=== PATIENT | male | born 1935 | race Caucasian/White ===

== ENCOUNTER 2016-10-10 09:28 | Inpatient (IN) | payer MEDICARE, BC ==
[~2016-10-10] VITALS: Ht 177.8 cm; Wt 94.8 kg
[2016-10-10 10:40] VITALS: BP 118/87
[2016-10-10 11:17] VITALS: BP 118/87
[2016-10-10] MEDS ORDERED: CARV25TA2 PO (11:25)
[2016-10-10] MEDS ORDERED: DABI150C PO (11:25)
[2016-10-10] MEDS ORDERED: SERT50TA PO (11:25)
[2016-10-10] MEDS ORDERED: LOSA100T6 PO (11:25)
[2016-10-10] MEDS ORDERED: POTA20TA4 PO (11:25)
[2016-10-10] MEDS ORDERED: TAMS0.4C2 PO (11:25)
[2016-10-10] MEDS ORDERED: CHOL500016 PO (11:25)
[2016-10-10] MEDS ORDERED: ASPI81TA2 PO (11:25)
[2016-10-10] MEDS ORDERED: SPIR25TA3 PO (11:25)
[2016-10-10 11:46] LABS: BASO % 0 % (0-3); EOS % 1 % (0-3); HEMATOCRIT 35.2 % (39.0-53.0); HEMOGLOBIN 11.8 g/dL (13.0-17.5); LYMPH # 0.5 x10^3/uL (1.0-4.8); LYMPH % 9 % (24-48); MEAN CORPUSCULAR HEMOGLOBIN 30 pg (25-35); MEAN CORPUSCULAR HGB CONC 33 g/dL (31-37); MEAN CORPUSCULAR VOLUME 91 fL (79-100); MONO % 8 % (0-9); NEUT % 82 % (31-73); PLATELET COUNT 154 x10^3/uL (140-400); RED BLOOD COUNT 3.89 x10^6/uL (4.30-5.70); RED CELL DISTRIBUTION WIDTH 14.6 % (11.5-14.5); WHITE BLOOD COUNT 5.4 x10^3/uL (4.0-11.0)
[2016-10-10] MEDS ORDERED: EZET1TAB19 PO (12:00)
[2016-10-10] MEDS ORDERED: MULT-246 PO (12:00)
[2016-10-10] MEDS ORDERED: CALC600T4 PO (12:00)
[2016-10-10] MEDS ORDERED: POTA20TA82 PO (12:00)
[2016-10-10] MEDS ORDERED: FENO145T2 PO (12:00)
[2016-10-10 12:17] LABS: ALBUMIN 2.9 g/dL (3.4-5.0); ALBUMIN/GLOBULIN RATIO 0.8 (1.0-1.7); CREATININE 5.5 mg/dL (0.7-1.3); POTASSIUM 5.9 mmol/L (3.5-5.1); TOTAL BILIRUBIN 0.7 mg/dL (0.2-1.0); TOTAL PROTEIN 6.5 g/dL (6.4-8.2)
[2016-10-10 12:29] LABS: CALCIUM 14.4 mg/dL (8.5-10.1)
[2016-10-10] MEDS: IV NORMAL SALINE 1000ML BAG 1,000 ML IV SCH ×2 (12:29→21:57)
--- NOTE | 2016-10-10 13:22 | PDOC2 ---
DATE OF CONSULT Date of Consult 10/10/2016 REASON FOR CONSULT Reason for Consult YURI, ^K, ^ mary jane REFERRING PHYSICIAN Referring Provider Dr Chung CHIEF COMPLAINT Chief Complaint ABN Labs SOURCE Source Pt HPI HPI as dictated CURRENT MEDICATIONS Current Meds Current Medications Medications (Trade) Dose Ordered Sig/Selena Route PRN Reason Start Time Stop Time Status Last Admin Dose Admin Sodium Chloride (Iv Sodium Chloride 0.9% 1000ml Bag) 1,000 ml @ 100 mls/hr Q10H IV 10/10/16 11:00 10/10/16 12:29 Home Meds reviewed as documented ALLERGIES Allergies: Coded Allergies: No Known Drug Allergies (Unverified , 10/10/16) ROS ROS GEN: no Fevers no Chills + Weakness, DZness, Orthostasis EYES: no new Visual Complaints ENT: no EN Drainage no Hearing deficiets CVS: no Orthopnea no CP RESP: no SOB no ZEPEDA GI: no Nausea no Vomiting + Constiaption : no Dysuria no Urgency + Polyuria HEME: no easy bruising no Palp Ly Nodes NEURO no Focal Weakness no Sz PSYCH: no Suicidal Ideation no Depression SKIN: no Rashes + H/o Melanoma ENDO: no Polyuria or Polydipsia no Hot/Cold Intolerance MU SK: + Back Pain and other Arthralgia + NSAID use no Myalgia VITAL SIGNS Vital Signs VS - Last 72 Hours, by Label Date Time Temp Pulse Resp B/P Pulse Ox O2 Delivery O2 Flow Rate FiO2 10/10/16 11:17 98.1 86 20 118/87 97 Room Air 98.1 10/10/16 10:40 98.1 86 20 118/87 97 Room Air 98.1 PHYSICAL EXAM Physical Exam General Appearance: Awake Alert Oriented x 3 In no Distress Eyes: VIsion Unchanged Conjunctiva Normal EN: No EN Drainage Mucous Memb. moist Neck: no JVD no JVP Supple no Thyromegaly CVS: S1 S2 soft Murmur No Gallop No Rub no Edema Resp: no Rales no Rhonchi no Acc. Muscle use GI: BS +ve NO Bruit Non Tender Non Distended : no CVA tenderness; no Suprapubic Tenderness SKIN: no Rashes Breast Exam deferred Mu.Sk: Adequate ROM no Muscle Atrophy Heme: Unable to palpate Obvious LAD no palp Splenomegaly NEURO: Good Strength and Tone Cranial Nerves II - XII grossly intact Psych: not Depressed no Active hallucination ASSESSMENT/PLAN Assessment/Plan ARF: suspect VMN from NSAIDs, ^ Mary Jane, dehydration etc. Current FLuid and E-lyte status does not necessitate emergent need for Dialysis. Will re-evaluate for Dialysis in am ^K - Kayexalate, suspect due to renal failure ^Mary Jane - IVF for now. Miacalcin x 3; was on Mary Jane + Vit D; ? Co-relation with Bone/ spine pain. Back Pain (predates) and fall - spine xrays HypoAlbuminemia - Evall for PEPs in setting of YURI, ^ Mary Jane Dehydration - IVF as ordered Anemia: check Iron; No Epogen for now; Transfuse as needed. HTN: Current BP meds reviewed. See orders for changes. Discussed Plan of Care and prognosis etc. at length with family. LABS Labs: Laboratory Tests Test 10/10/16 11:37 White Blood Count 5.4x10^3/uL (4.0-11.0) Red Blood Count 3.89x10^6/uL (4.30-5.70) Hemoglobin 11.8g/dL (13.0-17.5) Hematocrit 35.2% (39.0-53.0) Mean Corpuscular Volume 91fL (79-100) Mean Corpuscular Hemoglobin 30pg (25-35) Mean Corpuscular Hemoglobin Concent 33g/dL (31-37) Red Cell Distribution Width 14.6% (11.5-14.5) Platelet Count 154x10^3/uL (140-400) Neutrophils (%) (Auto) 82% (31-73) Lymphocytes (%) (Auto) 9% (24-48) Monocytes (%) (Auto) 8% (0-9) Eosinophils (%) (Auto) 1% (0-3) Basophils (%) (Auto) 0% (0-3) Neutrophils # (Auto) 4.4x10^3uL (1.8-7.7) Lymphocytes # (Auto) 0.5x10^3/uL (1.0-4.8) Monocytes # (Auto) 0.5x10^3/uL (0.0-1.1) Eosinophils # (Auto) 0.0x10^3/uL (0.0-0.7) Basophils # (Auto) 0.0x10^3/uL (0.0-0.2) Sodium Level 136mmol/L (136-145) Chloride Level 102mmol/L (98-107) Carbon Dioxide Level 27mmol/L (21-32) Anion Gap 7 (6-14) Blood Urea Nitrogen 56mg/dL (8-26) Estimated GFR (Cockcroft-Gault) 10.0 BUN/Creatinine Ratio 10 (6-20) Glucose Level 91mg/dL (70-99) Calcium Level 14.4mg/dL (8.5-10.1) Total Bilirubin 0.7mg/dL (0.2-1.0) Aspartate Amino Transf (AST/SGOT) 35U/L (15-37) Alkaline Phosphatase 78U/L (46-116) Total Protein 6.5g/dL (6.4-8.2) Albumin 2.9g/dL (3.4-5.0) Albumin/Globulin Ratio 0.8 (1.0-1.7) DIAZ GUNN MD Oct 10, 2016 13:22
[2016-10-10] MEDS ORDERED: MAGNESIUM SULFATE 2GM 50 ML IV PRN (13:30)
[2016-10-10] MEDS ORDERED: SODIUM POLYSTYRENE SULFONATE 15 GM/60 ML ORAL.SUSP. PO ONE (13:30)
[2016-10-10] MEDS ORDERED: EZETIMIBE 10 MG TABLET PO SCH (14:00)
[2016-10-10] MEDS: ASPIRIN 81 MG TAB.CHEW PO SCH (14:00)
[2016-10-10] MEDS: CHOLECALCIFEROL (VITAMIN D3) 5,000 UNIT CAPSULE PO SCH (14:00)
[2016-10-10] MEDS ORDERED: SPIRONOLACTONE 25 MG TABLET PO SCH (14:00)
[2016-10-10] MEDS: MULTIVITAMIN with MINERAL TABLET. PO SCH (14:00)
[2016-10-10 14:08] VITALS: BP 142/91
[2016-10-10 14:44] LABS: % SAT IRON 20 % (15-34); IRON,SERUM 57 ug/dL (65-175)
[2016-10-10] MEDS ORDERED: ANTI-COAG MONITOR BY PHARMACY. MC PRN (14:45)
[2016-10-10] MEDS ORDERED: ONDANSETRON PF 4 MG/2 ML VIAL. IV PRN (15:30)
--- NOTE | 2016-10-10 15:55 | RAD ---
Exam performed: Renal sonogram. Indication: Acute renal failure, chronic renal disease Date of Service: 10/10/16 . Comparison: None available Technique: Real-time grayscale imaging of the kidneys is performed and images are obtained. Findings: Both kidneys are normal in size and echogenicity. The right kidney measures 12.3 x 6.0 x 6.2 cm whereas the left kidney measures 12.8 x 5.1 x 5.2 cm. There is mild right and moderate left hydronephrosis. There is a 1.7 x 1.5 x 2.0 cm cyst in the left kidney. The urinary bladder is decompressed. Impression: 1. Left greater than right hydronephrosis with small left renal cyst
--- NOTE | 2016-10-10 16:03 | RAD ---
Lumbar spine, 3 views, 10/10/2016: History: Fall, back pain No previous lumbar radiographs are available at this time for comparison purposes. There is a moderate vertebral compression fracture at L2. There is retropulsion of the posterior margin of that vertebral body into the anterior aspect of the spinal canal. There is mild loss of height of the L3 vertebral body. The other lumbar vertebral heights are well-maintained. There are moderate scattered marginal spurs. There are moderate degenerative changes involving the facet joints in the lower lumbar spine. There is an infrarenal abdominal aortic aneurysm measuring at least 4 cm in diameter. Its downey are calcified. IMPRESSION: 1. L2 and L3 vertebral compression fractures of indeterminate ages. 2. Probable associated spinal stenosis at L2-3 due to retropulsion at the L2 fracture site. 3. Moderate multilevel degenerative change. 4. Distal abdominal aortic aneurysm.
[2016-10-10] MEDS ORDERED: NON FORMULARY ITEM (Potassium Chloride 20 MEQ) PO SCH (17:00)
[2016-10-10] MEDS ORDERED: POTASSIUM CHLORIDE 20 MEQ TABLET.ER. PO SCH (17:00)
[2016-10-10] MEDS: FENOFIBRATE,MICRONIZED 134 MG CAPSULE PO SCH (17:11)
[2016-10-10] MEDS: CARVEDILOL 12.5 MG TABLET PO SCH (17:11)
[2016-10-10 19:32] VITALS: BP 146/93
[2016-10-10] MEDS ORDERED: DABIGATRAN ETEXILATE 150 MG CAPSULE. PO SCH (21:00)
[2016-10-10] MEDS: SERTRALINE 50 MG TABLET. PO SCH (21:48)
[2016-10-10] MEDS: EZETIMIBE 10 MG TABLET PO SCH (21:48)
[2016-10-10] MEDS: TAMSULOSIN 0.4 MG CAP.ER.24H. PO SCH (21:48)
[2016-10-10] MEDS: SIMVASTATIN 40 MG TABLET. PO SCH (21:48)
[2016-10-10] MEDS: LOSARTAN POTASSIUM 50 MG TABLET. PO SCH (21:48)
[2016-10-10] MEDS: CALCITONIN,SALMON 400 UNIT/2 ML VIAL. SQ SCH (21:50)
--- NOTE | 2016-10-10 22:38 | HP ---
ADMIT DATE: 10/10/2016 CHIEF COMPLAINT AND HISTORY OF PRESENT ILLNESS: This 81-year-old white male who is well known to me from followup in the office. The patient was seen in the office the day prior to admission. He was sent by dermatology who follows him after removal of melanoma several years ago because of increased LDH. A full lab was done. He was found to have acute renal failure with a BUN of 44 and creatinine of 3.47 on the 30. ____ lab done ____ where his creatinine was 1.4. He was also found to be hyperkalemic. He was profoundly hypercalcemic with a calcium of 13.5. CBC was fairly unremarkable. Repeat LDH was 393 with upper limits normal of 225. He was admitted at this point in time for the hypercalcemia, hyperkalemia, acute renal failure to work this up further. PAST MEDICAL HISTORY: Remarkable for the melanoma. He has a history of mild chronic kidney disease with a creatinine of 1.4. He has a history of a 3.5 cm abdominal aortic aneurysm. He has atrial fib, for which he takes Xarelto. He has history of BPH, atherosclerotic heart disease, some depression. MEDICATIONS: Brought with the patient, listed on the computer and had been addressed. ALLERGIES: He has no known drug allergies. SOCIAL HISTORY: He is a nonsmoker, does not abuse alcohol or drugs. Lives at home alone and has a very supportive family. FAMILY HISTORY: Noncontributory. REVIEW OF SYSTEMS: Remarkable for approximately 2 weeks of very severe anorexia, nausea, decreased balance, a 4-pound weight loss from his last visit. He does complain of low back pain which he rates as fairly severe over the last week or so. PHYSICAL EXAMINATION: GENERAL: He is a well-developed, well-nourished, white male, appears in no acute distress during examination. VITAL SIGNS: Stable. He is afebrile. HEAD, EYES, EARS, NOSE, AND THROAT: Unremarkable. NECK: Supple, without thyromegaly. CHEST: Clear to auscultation and percussion. HEART: Irregularly irregular, without S3, S4, or murmur. ABDOMEN: Soft, nontender, without hepatosplenomegaly or masses. EXTREMITIES: Without cyanosis, clubbing, or edema. NEUROLOGIC: He is intact. IMPRESSION: 1. Multiple electrolyte abnormalities with acute renal failure as noted above. 2. Other problems listed above. PLAN: The patient has been admitted. Hydration will begin for the hypercalcemia. Renal will be consulted for the electrolyte abnormalities. Plain films of the lower back will be taken and the patient will be monitored, managed and treated appropriately. AYALA LYMAN MD DR: GEO/miranda JOB#: [id number] / [id number]
[2016-10-10 23:21] VITALS: BP 135/85
--- NOTE | 2016-10-11 00:08 | CONS ---
DATE OF CONSULTATION: PRIMARY PHYSICIAN: Dr. Chung. REASON FOR CONSULTATION: Hyperkalemia, acute renal failure and hypercalcemia. HISTORY OF PRESENT ILLNESS: The patient is an 81-year-old gentleman who is known to have recent elevated LFTs for some reason. This was noted by his mobile lounge driver or operator. He was sent in followup to see Dr. Chung. Dr. Chung did labs and was noted to have elevated calcium to 15. He was made a direct admit to come here. The patient claims he has had constipation, polyuria and signs and symptoms of hypercalcemia in the form of dizziness, orthostasis, confusion, lack of balance, etc. He is noted to be on vitamin D and calcium supplements. He also has developed some back pain of late. He sustained a fall today due to loss of balance. Denies diuretic use. He is also on potassium and Aldactone supplements, though. He is noted to have an elevated potassium. He was taking some NSAIDs for back pain also. In this setting, he was admitted to the hospital for further evaluation. We were asked to see him for the same. Please see electronic records for details. PAST MEDICAL HISTORY: Significant for history of melanoma, hypertension, possible osteopenia, dyslipidemia, hypertension, depression, benign prostatic hypertrophy. FAMILY HISTORY: Negative for known kidney problems. SOCIAL HISTORY: Lives by himself. Family takes care of him. Nonsmoker, nondrinker currently. DIAZ GUNN MD DR: OBDULIO/miranda JOB#: [id number] / [id number]
[2016-10-11 03:19] VITALS: BP 126/88
[2016-10-11 06:42] LABS: PHOSPHORUS 3.8 mg/dL (2.6-4.7)
[2016-10-11 07:00] VITALS: BP 124/78
[2016-10-11 08:26] LABS: PTH INTACT 21 pg/mL (15-65)
[2016-10-11] MEDS: MULTIVITAMIN with MINERAL TABLET. PO SCH (08:36)
[2016-10-11] MEDS: FENOFIBRATE,MICRONIZED 134 MG CAPSULE PO SCH (08:36)
[2016-10-11] MEDS: ASPIRIN 81 MG TAB.CHEW PO SCH (08:36)
[2016-10-11] MEDS: CHOLECALCIFEROL (VITAMIN D3) 5,000 UNIT CAPSULE PO SCH (08:37)
[2016-10-11] MEDS: CARVEDILOL 12.5 MG TABLET PO SCH ×2 (08:38→17:12)
[2016-10-11] MEDS: IV NORMAL SALINE 1000ML BAG 1,000 ML IV SCH ×2 (08:49→17:00)
[2016-10-11] MEDS: DABIGATRAN ETEXILATE 75 MG CAPSULE. PO SCH ×2 (10:03→21:00)
[2016-10-11] MEDS: CALCITONIN,SALMON 400 UNIT/2 ML VIAL. SQ SCH ×2 (10:03→22:09)
--- NOTE | 2016-10-11 10:04 | PDOC ---
PROGRESS NOTES Subjective Subjective Pt awake and pleasant this am. Objective Objective Pt awake and alert. NAD at rest. VSS. Afebrile. Vital Signs Date Time Temp Pulse Resp B/P Pulse Ox O2 Delivery O2 Flow Rate FiO2 10/11/16 08:38 85 124/78 10/11/16 08:00 Room Air 10/11/16 07:00 97.6 20 96 97.6 Intake and Output 10/11/16 07:00 Intake Total 1092 ml Balance 1092 ml Intake Oral 650 ml IV Total 442 ml # Voids 1 # Bowel Movements 6 Plan Plan of Care 1. Acute renal failure -Creat 5.5 upon admission, 6.7 this am. Baseline 1.4 -IVF -Renal US: Left greater than right hydronephrosis with small left renal cyst -Coleman placed -Renal team consulting 2. Hyperkalemia -K 5.9 upon admission, 5.0 this am following Kayexalate dosing 3. Hypercalcemia -Ca 14.4 upon admission, t12.3 his am following Miacalcin x3 4. Oven Tender fall -Hematoma present on left forehead -pt with c/o back pain, spin x-rays ordered 5. Anemia -Hgb 11.8 upon admission, 10.2 this am -TIBC 283, Iron 57, Ferritin 752 -Recheck CBC in am 6. HTN -Restart home meds Concerned of possible Multiple Myeloma. Total protein normal, serum protein electrophoresis pending. Comment Review of Relevant I have reviewed the following items juan (where applicable) has been applied. Labs Laboratory Tests Test 10/10/16 11:37 10/10/16 14:20 10/11/16 04:30 White Blood Count 5.4x10^3/uL (4.0-11.0) Red Blood Count 3.89x10^6/uL (4.30-5.70) Hemoglobin 11.8g/dL (13.0-17.5) 10.2g/dL (13.0-17.5) Hematocrit 35.2% (39.0-53.0) Mean Corpuscular Volume 91fL (79-100) Mean Corpuscular Hemoglobin 30pg (25-35) Mean Corpuscular Hemoglobin Concent 33g/dL (31-37) Red Cell Distribution Width 14.6% (11.5-14.5) Platelet Count 154x10^3/uL (140-400) Neutrophils (%) (Auto) 82% (31-73) Lymphocytes (%) (Auto) 9% (24-48) Monocytes (%) (Auto) 8% (0-9) Eosinophils (%) (Auto) 1% (0-3) Basophils (%) (Auto) 0% (0-3) Neutrophils # (Auto) 4.4x10^3uL (1.8-7.7) Lymphocytes # (Auto) 0.5x10^3/uL (1.0-4.8) Monocytes # (Auto) 0.5x10^3/uL (0.0-1.1) Eosinophils # (Auto) 0.0x10^3/uL (0.0-0.7) Basophils # (Auto) 0.0x10^3/uL (0.0-0.2) Reticulocyte Count (auto) 1.0% (0.5-2.5) Sodium Level 136mmol/L (136-145) 137mmol/L (136-145) Potassium Level 5.9mmol/L (3.5-5.1) 5.0mmol/L (3.5-5.1) Chloride Level 102mmol/L (98-107) 105mmol/L (98-107) Carbon Dioxide Level 27mmol/L (21-32) 23mmol/L (21-32) Anion Gap 7 (6-14) 9 (6-14) Blood Urea Nitrogen 56mg/dL (8-26) 59mg/dL (8-26) Creatinine 5.5mg/dL (0.7-1.3) 6.7mg/dL (0.7-1.3) Estimated GFR (Non- 9 (>59) Estimated GFR (Cockcroft-Gault) 10.0 7.9 BUN/Creatinine Ratio 10 (6-20) Glucose Level 91mg/dL (70-99) 91mg/dL (70-99) Calcium Level 14.4mg/dL (8.5-10.1) 12.3mg/dL (8.5-10.1) Iron Level 57ug/dL (65-175) Total Iron Binding Capacity 283ug/dL (250-450) Iron Saturation 20% (15-34) Ferritin 752ng/mL (26-388) Total Bilirubin 0.7mg/dL (0.2-1.0) Aspartate Amino Transf (AST/SGOT) 35U/L (15-37) Alanine Aminotransferase (ALT/SGPT) 19U/L (16-63) Alkaline Phosphatase 78U/L (46-116) Total Protein 6.5g/dL (6.4-8.2) Albumin 2.9g/dL (3.4-5.0) 2.5g/dL (3.4-5.0) Albumin/Globulin Ratio 0.8 (1.0-1.7) EGFR 10 (>59) PTH (Intact) Specimen Description Comment (.) Parathyroid Hormone (Intact) 21pg/mL (15-65) Calcium (PTH Intact) 12.9mg/dL (8.6-10.2) Creatinine (PTH Intact) 5.45mg/dL (0.76-1.27) Phosphorus (PTH Intact) 4.0mg/dL (2.5-4.5) Vitamin B12 Level 510pg/mL (211-946) Phosphorus Level 3.7mg/dL (2.6-4.7) Magnesium Level 2.0mg/dL (1.8-2.4) Laboratory Tests Test 10/10/16 11:37 10/10/16 14:20 10/11/16 04:30 White Blood Count 5.4x10^3/uL (4.0-11.0) Red Blood Count 3.89x10^6/uL (4.30-5.70) Hemoglobin 11.8g/dL (13.0-17.5) 10.2g/dL (13.0-17.5) Hematocrit 35.2% (39.0-53.0) Mean Corpuscular Volume 91fL (79-100) Mean Corpuscular Hemoglobin 30pg (25-35) Mean Corpuscular Hemoglobin Concent 33g/dL (31-37) Red Cell Distribution Width 14.6% (11.5-14.5) Platelet Count 154x10^3/uL (140-400) Neutrophils (%) (Auto) 82% (31-73) Lymphocytes (%) (Auto) 9% (24-48) Monocytes (%) (Auto) 8% (0-9) Eosinophils (%) (Auto) 1% (0-3) Basophils (%) (Auto) 0% (0-3) Neutrophils # (Auto) 4.4x10^3uL (1.8-7.7) Lymphocytes # (Auto) 0.5x10^3/uL (1.0-4.8) Monocytes # (Auto) 0.5x10^3/uL (0.0-1.1) Eosinophils # (Auto) 0.0x10^3/uL (0.0-0.7) Basophils # (Auto) 0.0x10^3/uL (0.0-0.2) Reticulocyte Count (auto) 1.0% (0.5-2.5) Sodium Level 136mmol/L (136-145) 137mmol/L (136-145) Potassium Level 5.9mmol/L (3.5-5.1) 5.0mmol/L (3.5-5.1) Chloride Level 102mmol/L (98-107) 105mmol/L (98-107) Carbon Dioxide Level 27mmol/L (21-32) 23mmol/L (21-32) Anion Gap 7 (6-14) 9 (6-14) Blood Urea Nitrogen 56mg/dL (8-26) 59mg/dL (8-26) Creatinine 5.5mg/dL (0.7-1.3) 6.7mg/dL (0.7-1.3) Estimated GFR (Non- 9 (>59) Estimated GFR (Cockcroft-Gault) 10.0 7.9 BUN/Creatinine Ratio 10 (6-20) Glucose Level 91mg/dL (70-99) 91mg/dL (70-99) Calcium Level 14.4mg/dL (8.5-10.1) 12.3mg/dL (8.5-10.1) Iron Level 57ug/dL (65-175) Total Iron Binding Capacity 283ug/dL (250-450) Iron Saturation 20% (15-34) Ferritin 752ng/mL (26-388) Total Bilirubin 0.7mg/dL (0.2-1.0) Aspartate Amino Transf (AST/SGOT) 35U/L (15-37) Alanine Aminotransferase (ALT/SGPT) 19U/L (16-63) Alkaline Phosphatase 78U/L (46-116) Total Protein 6.5g/dL (6.4-8.2) Albumin 2.9g/dL (3.4-5.0) 2.5g/dL (3.4-5.0) Albumin/Globulin Ratio 0.8 (1.0-1.7) EGFR 10 (>59) PTH (Intact) Specimen Description Comment (.) Parathyroid Hormone (Intact) 21pg/mL (15-65) Calcium (PTH Intact) 12.9mg/dL (8.6-10.2) Creatinine (PTH Intact) 5.45mg/dL (0.76-1.27) Phosphorus (PTH Intact) 4.0mg/dL (2.5-4.5) Vitamin B12 Level 510pg/mL (211-946) Phosphorus Level 3.7mg/dL (2.6-4.7) Magnesium Level 2.0mg/dL (1.8-2.4) Medications Current Medications Sodium Chloride 1,000 ml @ 100 mls/hr Q10H IV Last administered on 10/11/16 08 :49; Start 10/10/16 at 11:00 Magnesium Sulfate/ Dextrose (Magnesium Sulfate PREMIX 2GM) 50 ml @ 25 mls/hr PRN DAILY PRN IV for Mag < 1.7 on am labs; Start 10/10/16 at 13:30 Sodium Polystyrene Sulfonate (Kayexalate) 45 gm 1X ONCE PO Last administered on 10/10/16 15:07; Start 10/10/16 at 13:30; Stop 10/10/16 at 13:44; Status DC Aspirin (Children'S Aspirin) 81 mg DAILY08 PO Last administered on 10/11/16 08: 36; Start 10/10/16 at 14:00 Dabigatran (Pradaxa) 150 mg BID PO Last administered on 10/10/16 21:48; Start 10/10/16 at 21:00; Stop 10/11/16 at 08:25; Status DC Potassium Chloride (Klor-Con) 20 meq DAILYWSUP PO ; Start 10/10/16 at 17:00; Stop 10/10/16 at 17:00; Status DC Sertraline HCl (Zoloft) 50 mg HS PO Last administered on 10/10/16 21:48; Start 10/10/16 at 21:00 Spironolactone (Aldactone) 25 mg DAILY PO ; Start 10/10/16 at 14:00; Stop at 14:17; Status DC Tamsulosin HCl (Flomax) 0.4 mg HS PO Last administered on 10/10/16 21:48; Start 10/10/16 at 21:00 Carvedilol (Coreg) 25 mg BIDWMEALS PO Last administered on 10/11/16 08:38; Start 10/10/16 at 17:00 Vitamin D (Vitamin D3) 5,000 unit DAILY PO Last administered on 10/11/16 08:37 ; Start 10/10/16 at 14:00 EZETIMIBE (Zetia) 10 mg DAILY PO ; Start 10/10/16 at 14:00; Stop 10/10/16 at 21: 00; Status Cancel Fenofibrate (Lofibra) 134 mg DAILY PO Last administered on 10/11/16 08:36; Start 10/10/16 at 14:00 Losartan Potassium (Cozaar) 100 mg QHS PO Last administered on 10/10/16 21:48 ; Start 10/10/16 at 21:00 Multivitamins/ Calcium (Thera M Plus) 1 tab DAILY PO Last administered on 08:36; Start 10/10/16 at 14:00 Non-Formulary Medication 20 meq DAILYWSUP PO ; Start 10/10/16 at 17:00; Status UNV Simvastatin (Zocor) 80 mg QHS PO Last administered on 10/10/16 21:48; Start at 21:00 Calcitonin Firth (Miacalcin) 400 unit BID SQ Last administered on 10/10/16 21 :50; Start 10/10/16 at 21:00 Info (Anti-Coagulation Monitoring By Pharmacy) 1 each PRN DAILY PRN MC SEE COMMENTS Last administered on 10/11/16 08:28; Start 10/10/16 at 14:45 Ondansetron HCl (Zofran) 4 mg PRN Q6HRS PRN IV NAUSEA/VOMITING; Start 10/10/16 at 15:30 EZETIMIBE (Zetia) 10 mg HS PO Last administered on 10/10/16t 21:48; Start 10/10 at 21:00 Dabigatran (Pradaxa) 75 mg BID PO ; Start 10/11/16 at 09:00 Active Scripts Active Reported Fenofibrate (Fenofibrate Nanocrystallized) 145 Mg Tablet 1 Tab PO DAILYWLUN Potassium Chloride 20 Meq Tablet.er 20 Meq PO DAILYWSUP Calcium (Calcium Carbonate) 600 Mg Tablet 600 Mg PO Vytorin 10-80 Mg Tablet (Ezetimibe/Simvastatin) 1 Each Tablet 1 Each PO HS Multi-Vitamin Daily (Multivitamin) 1 Each Tablet 1 Each PO DAILY Vitamin D3 (Cholecalciferol (Vitamin D3)) 5,000 Unit Tablet 1 Tab PO DAILY Pradaxa (Dabigatran Etexilate Mesylate) 150 Mg Capsule 1 Cap PO BID Zoloft (Sertraline Hcl) 50 Mg Tablet 1 Tab PO HS Tamsulosin Hcl 0.4 Mg Cap.er.24h 1 Cap PO HS Losartan Potassium 100 Mg Tablet 100 Mg PO HS Klor-Con M20 (Potassium Chloride) 20 Meq Tab.er.prt 1 Tab PO DAILY Spironolactone 25 Mg Tablet 1 Tab PO DAILY Aspirin 81 Mg Tab.chew 1 Tab PO DAILY Carvedilol 25 Mg Tablet 1 Tab PO BID Vitals/I & O Vital Sign - Last 24 Hours 10/10/16 10/10/16 10/10/16 10/10/16 10:40 11:17 11:30 14:08 Temp 98.1 98.1 97.5 98.1 98.1 97.5 Pulse 86 86 84 Resp 20 20 20 B/P 118/87 118/87 142/91 Pulse Ox 97 97 95 O2 Delivery Room Air Room Air Room Air Room Air 10/10/16 10/10/16 10/10/16 10/10/16 17:11 19:32 20:20 21:48 Temp 97.9 97.9 Pulse 84 82 82 Resp 22 B/P 142/91 146/93 146/93 Pulse Ox 94 O2 Delivery Room Air Room Air 10/10/16 10/11/16 10/11/16 10/11/16 23:21 03:19 07:00 08:00 Temp 97.7 97.7 97.6 97.7 97.7 97.6 Pulse 86 78 85 Resp 20 18 20 B/P 135/85 126/88 124/78 Pulse Ox 93 95 96 O2 Delivery Room Air Room Air Room Air Room Air 10/11/16 08:38 Pulse 85 B/P 124/78 Intake and Output 10/10/16 10/10/16 10/11/16 15:00 23:00 07:00 Intake Total 892 ml 200 ml Balance 892 ml 200 ml AYALA LYMAN MD Oct 11, 2016 10:04
[2016-10-11 10:27] LABS: VITAMIN D25(OH)TOTAL 20.7 ng/mL (30.0-100.0)
[2016-10-11 10:28] LABS: ALBUMIN 2.5 g/dL (3.4-5.0); ALBUMIN/GLOBULIN RATIO 0.8 (1.0-1.7); CREATININE 6.7 mg/dL (0.7-1.3); GFR 7.9; TOTAL BILIRUBIN 0.5 mg/dL (0.2-1.0); TOTAL PROTEIN 5.7 g/dL (6.4-8.2)
[2016-10-11 10:38] LABS: CALCIUM 12.4 mg/dL (8.5-10.1)
[2016-10-11 11:00] VITALS: BP 129/79
[2016-10-11 11:22] LABS: KAPPA LAMBDA RATIO 1.79 (0.26-1.65)
--- NOTE | 2016-10-11 12:05 | PDOC ---
SUBJECTIVE ROS YURI not feeling too good; anorexic CVS: no Orthopnea, no CP RESP: no SOB, no ZEPEDA GI: no Nausea, no Vomiting : no Dysuria, no Urgency - sutherland placed OBJECTIVE Vital Signs Vital Signs Date Time Temp Pulse Resp B/P Pulse Ox O2 Delivery O2 Flow Rate FiO2 10/11/16 11:00 97.9 74 20 129/79 94 Room Air 97.9 I & 0 Intake and Output 10/11/16 07:00 Intake Total 1092 ml Balance 1092 ml Intake Oral 650 ml IV Total 442 ml # Voids 1 # Bowel Movements 6 PHYSICAL EXAM Physical Exam General Appearance: Awake Alert Oriented x 3 In no Distress Eyes: VIsion Unchanged Conjunctiva Normal EN: No EN Drainage Mucous Memb. moist Neck: no JVD no JVP Supple no Thyromegaly CVS: S1 S2 soft Murmur No Gallop No Rub no Edema Resp: no Rales no Rhonchi no Acc. Muscle use GI: BS +ve NO Bruit Non Tender Non Distended : no CVA tenderness; no Suprapubic Tenderness SKIN: no Rashes Breast Exam deferred Mu.Sk: Adequate ROM no Muscle Atrophy Heme: Unable to palpate Obvious LAD no palp Splenomegaly NEURO: Good Strength and Tone Cranial Nerves II - XII grossly intact Psych: not Depressed no Active hallucination ASSESSMENT/PLAN Assessment/Plan ARF: suspect VMN from NSAIDs, ^ Krishna, dehydration, and now Hydronephrosis too. etc. Current FLuid and E-lyte status does not necessitate emergent need for Dialysis. Have discussed need for HD - pt and family discussing Hydronephrosis - URO eval, Doubt MAHONEY per se since Bladder was decompressed on US (prior to sutherland placed) ^K - better after Kayexalate, suspect due to renal failure, NSAIDs ^Krishna - IVF for now. Miacalcin x 3; was on Krishna + Vit D; ? Co-relation with Bone/ spine pain. Myeloma W/up ordered; PTH is appropriately lowish. VIt D is still lowish Back Pain (predates) and fall - spine xrays noted - ? DJD vs due to [place] HypoAlbuminemia - Evall for PEPs in setting of YURI, ^ Krishna Dehydration - IVF as ordered Oliguria - ^ IVF if ECHO/ LV Fn is OK Anemia: check Iron; No Epogen for now; Transfuse as needed. HTN: Current BP meds reviewed. See orders for changes. COMMENT/RELEVANT DATA Meds Current Medications Medications (Trade) Dose Ordered Sig/Selena Start Time Stop Time Status Last Admin Dose Admin Aspirin (Children'S Aspirin) 81 mg DAILY08 10/10/16 14:00 10/11/16 08:36 81 MG Calcitonin [place] (Miacalcin) 400 unit BID 10/10/16 21:00 10/11/16 10:03 400 UNIT Carvedilol (Coreg) 25 mg BIDWMEALS 10/10/16 17:00 10/11/16 08:38 25 MG Dabigatran (Pradaxa) 75 mg BID 10/11/16 09:00 10/11/16 10:03 75 MG EZETIMIBE (Zetia) 10 mg HS 10/10/16 21:00 10/10/16 21:48 10 MG Fenofibrate (Lofibra) 134 mg DAILY 10/10/16 14:00 10/11/16 08:36 134 MG Info (Anti-Coagulation Monitoring By Pharmacy) 1 each PRN DAILY PRN 10/10/16 14:45 10/11/16 08:28 1 EACH Losartan Potassium (Cozaar) 100 mg QHS 10/10/16 21:00 10/10/16 21:48 100 MG Magnesium Sulfate/ Dextrose (Magnesium Sulfate PREMIX 2GM) 50 ml @ 25 mls/hr PRN DAILY PRN 10/10/16 13:30 Multivitamins/ Calcium (Thera M Plus) 1 tab DAILY 10/10/16 14:00 10/11/16 08:36 1 TAB Non-Formulary Medication 20 meq DAILYWSUP 10/10/16 17:00 UNV Ondansetron HCl (Zofran) 4 mg PRN Q6HRS PRN 10/10/16 15:30 Potassium Chloride (Klor-Con) 20 meq DAILYWSUP 10/10/16 17:00 10/10/16 17:00 DC Sertraline HCl (Zoloft) 50 mg HS 10/10/16 21:00 10/10/16 21:48 50 MG Simvastatin (Zocor) 80 mg QHS 10/10/16 21:00 10/10/16 21:48 80 MG Sodium Polystyrene Sulfonate (Kayexalate) 45 gm 1X ONCE 10/10/16 13:30 10/10/16 13:44 DC 10/10/16 15:07 45 GM Sodium Chloride 1,000 ml @ 100 mls/hr Q10H 10/10/16 11:00 10/11/16 08:49 100 MLS/HR Spironolactone (Aldactone) 25 mg DAILY 10/10/16 14:00 10/10/16 14:17 DC Tamsulosin HCl (Flomax) 0.4 mg HS 10/10/16 21:00 10/10/16 21:48 0.4 MG Vitamin D (Vitamin D3) 5,000 unit DAILY 10/10/16 14:00 10/11/16 08:37 5,000 UNIT Lab Laboratory Tests Test 10/10/16 14:20 10/11/16 04:30 Vitamin B12 Level 510pg/mL (211-946) 25-Hydroxy Vitamin D Total 20.7ng/mL (30.0-100.0) Immunoglobulin [place]/Lambda Ratio 1.79 (0.26-1.65) Free [place] Light Chains 49.87mg/L (3.30-19.40) Free [place] Light Chains 27.84mg/L (5.71-26.30) Hemoglobin 10.2g/dL (13.0-17.5) Sodium Level 138mmol/L (136-145) Potassium Level 5.0mmol/L (3.5-5.1) Chloride Level 105mmol/L (98-107) Carbon Dioxide Level 24mmol/L (21-32) Anion Gap 9 (6-14) Blood Urea Nitrogen 60mg/dL (8-26) Creatinine 6.7mg/dL (0.7-1.3) Estimated GFR (Cockcroft-Gault) 7.9 BUN/Creatinine Ratio 9 (6-20) Glucose Level 90mg/dL (70-99) Calcium Level 12.4mg/dL (8.5-10.1) Phosphorus Level 3.8mg/dL (2.6-4.7) Magnesium Level 2.0mg/dL (1.8-2.4) Total Bilirubin 0.5mg/dL (0.2-1.0) Aspartate Amino Transf (AST/SGOT) 36U/L (15-37) Alanine Aminotransferase (ALT/SGPT) 17U/L (16-63) Alkaline Phosphatase 71U/L (46-116) Total Protein 5.7g/dL (6.4-8.2) Albumin 2.5g/dL (3.4-5.0) Albumin/Globulin Ratio 0.8 (1.0-1.7) DIAZ GUNN MD Oct 11, 2016 12:05
--- NOTE | 2016-10-11 14:14 | ACF ---
Admission Forms Criteria HYPONATREMIA; HYPERNATREMIA; HYPOKALEMIA; HYPERKALEMIA; HYPOCALCEMIA; HYPERCALCEMIA Clinical Indications for Inpatient Care (Place 'X' for any and all applicable criteria): Ongoing inpatient care may be indicated for ANY ONE of the following [G](1)(2)(3 )(5): [ ]I. Hyponatremia with ANY ONE of the following: [ ]a) Sodium less than 130 mEq/L (mmol/L) (new) (6)(22) [ ]b) Sodium less than 135 mEq/L (mmol/L) with ANY ONE of the following: [ ]i) Severe medical etiology requiring inpatient management (eg, heart failure, hypovolemia) [ ]ii) Altered mental status [ ]iii) Seizures [ ]II. Hypernatremia with ANY ONE of the following: [ ]a) Sodium greater than 155 mEq/L (mmol/L) [ ]b) Sodium greater than 150 mEq/L (mmol/L) with ANY ONE of the following: [ ] i) Altered mental status [ ]ii) Seizures [ ]iii) Severe medical etiology (eg, hypovolemia, diabetes insipidus) [ ]iv) Severe weakness [ ]v) Severe medical etiology (eg, hemolysis, infection, drug overdose) [ ]III. Hypokalemia with ANY ONE of the following: [ ]a) Potassium less than 2.5 mEq/L (mmol/L) despite outpatient and emergency treatment [ ]b) Potassium less than 3.0 mEq/L (mmol/L) with ANY ONE of the following: [ ]i) Weakness [ ]ii) Cardiac abnormality (eg, arrhythmia, conduction disturbance) [ ]iii) Cardiac ischemia [ ]iv) Ileus [ ]v) Ongoing medical cause requiring inpatient management. ( e.g., acute renal wasting, SIADH) [ ]vi) Other severe symptoms [ ] IV. Hyperkalemia with ANY ONE of the following: [ ]a) Potassium greater than 6.5 mEq/L (mmol/L) [ ]b) Potassium greater than 5 mEq/L (mmol/L) with ANY ONE of the following: [ ]i) Severe ECG findings [H] [ ]ii) Acute worsening of renal failure (creatinine greater than 2.5 mg/dL (221 micromoles/L) or significant elevation for age and size) [ ] V. Hypocalcemia with ANY ONE of the following: [ ]a) Calcium less than 7 mg/dL (1.75 mmol/L) despite outpatient and emergency treatment(19) [ ]b) Calcium less than 8 mg/dL (2 mmol/L) with significant symptoms or findings; examples include: [ ]i) Cardiac abnormality (eg, arrhythmia or conduction disturbance) [ ]ii) Altered mental status [ ]iii) Seizures [ ]iv) Breathing difficulty [ ]v) Muscle spasms [X]. Hypercalcemia with ANY ONE of the following: [X]a) Calcium greater than 14 mg/dL (3.5 mmol/L) [ ]b) Calcium greater than 12 mg/dL (3 mmol/L) with ANY ONE of the following: [ ]i) Significant dehydration or hypovolemia as indicated by ANY ONE of the following(2): [ ]1. Clinically significant dehydration as indicated by ANY ONE of the following: [ ]A. Acute loss of weight from baseline (5% of body weight in adults, 9% in pediatric patients) [ ]B. Hemodynamic instability [ ]C. Acute renal failure [ ]D. Serum sodium greater than 150 mEq/L (mmol/L) [ ]2) Dehydration that is persistent indicated by ALL of the following: [ ]A. Oral rehydration therapy not tolerated or insufficient to adequately correct dehydration [ ]B. Appropriate intravenous treatment (eg, fluids ) does not readily correct dehydration ie, after 12 to 24 hours of treatment) [ ]ii) Significant symptoms or findings; examples include: [ ]1) Altered mental status [ ]2) Cardiac abnormality (eg, arrhythmia, conduction disturbance) [ ]3) Cardiac abnormality (eg, arrhythmia, conduction disturbance) The original [facility] content created by [facility] has been revised. The portions of the content which have been revised are identified through the use of italic text or in bold, and [facility] has neither reviewed nor approved the modified material. All other unmodified content is copyright [facility] Please see references footnoted in the original [facility] edition 2016 Admission Criteria Met?: Yes RAMIRO HARRIS Oct 11, 2016 14:14
--- NOTE | 2016-10-11 14:32 | RAD ---
CT of the abdomen and pelvis without contrast, 10/11/2016: History: Renal failure, bilateral hydronephrosis. Noncontrast scans were obtained as requested. There are linear parenchymal opacities in both lung bases compatible with atelectasis and/or scarring. There appears to be a trace amount of pleural fluid on the right. Extensive coronary artery calcifications are present. The unopacified liver is unremarkable. Several small gallstones are seen within the dependent aspect of the gallbladder. The gallbladder is not dilated. There is no pericholecystic edema. The pancreas is unremarkable. The spleen is of normal size. There is a large retroperitoneal soft tissue mass encircling the infrarenal abdominal aorta. This extends into the iliac regions, more so on the left. The aortic downey are calcified. There is a small infrarenal abdominal aortic aneurysm encased within this soft tissue process. The aneurysm measures 4.1 cm in width. Inferior vena cava is not clearly delineated but appears to be involved by this process. This soft tissue density measures 12.7 cm in width and 7.7 cm in AP dimension at the level of the aortic bifurcation. There is mild to moderate bilateral hydronephrosis and dilatation of the proximal ureters. At the upper pelvic level the ureters cannot be from the retroperitoneal mass which is presumably the source of the obstruction. There is mild bilateral renal cortical scarring. There is mild streaky bilateral perinephric and perirenal edema. There is mild streaky increased density in the pelvic and mesenteric fat. A tiny amount of free fluid is present in the abdomen. The prostate gland is enlarged measuring 6.2 cm in width. A Coleman catheter extends into the urinary bladder. The bladder is collapsed due to the presence of the Coleman catheter and poorly delineated. The bowel loops are not dilated. The appendix shows no abnormality. There is irregular sclerosis and trabecular thickening involving much of the right hemipelvis and sacrum. The appearance suggests Paget disease. There is a severe compression fracture at L2 with patchy internal sclerosis. A vertebral compression fracture with similar internal densities at T6 is incompletely delineated on these abdomen scans. IMPRESSION: 1. Large soft tissue mass encasing the infrarenal abdominal aorta and iliac arteries, left greater than right, as described above. Diagnostic considerations include severe retroperitoneal fibrosis or a neoplastic etiology such as lymphoma or metastatic disease. 2. Mild to moderate associated bilateral hydronephrosis. 3. Moderate nonspecific prostatic enlargement. 4. Streaky intra-abdominal and pelvic edema with a trace amount of ascites. 5. Cholelithiasis. 6. Extensive calcific plaquing of the aorta and its branches including the coronary arteries, with mild aneurysmal dilatation of the infrarenal abdominal aorta. 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 8. 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
[2016-10-11 15:00] VITALS: BP 123/69
--- NOTE | 2016-10-11 15:40 | CARD ---
APPROVED REPORT EXAM: Two-dimensional and M-mode echocardiogram with Doppler and color Doppler. Other Information Quality : GoodHR: 84bpm Rhythm : Arrhythmia INDICATION Hypertension/HCVD 2D DIMENSIONS RVDd3.3 (2.9-3.5cm)Left Atrium(2D)4.9 (1.6-4.0cm) IVSd1.3 (0.7-1.1cm)Aortic Root(2D)3.2 (2.0-3.7cm) LVDd5.1 (3.9-5.9cm)LVOT Diameter2.4 (1.8-2.4cm) PWd1.2 (0.7-1.1cm)LVDs3.5 (2.5-4.0cm) FS (%) 31.1 %SV73.2 ml LVEF(%)58.6 (>50%) Aortic Valve AoV Peak Lee.129.3cm/sAoV VTI23.3cm AO Peak GR.6.7mmHgLVOT Peak Lee.99.0cm/s AO Mean GR.4mmHgAVA (VMAX)3.41cm2 Mitral Valve MV E Peak Gr.5mmHgMV E Mean Gr.1mmHg Pulmonary Valve PV Peak Yaoljsca03.9cm/s Tricuspid Valve TR P. Saizcckh659me/sTR Peak Gr.35mmHg Pulmonary Vein S1 Uvevnuqj14.4cm/sD2 Uncupkst87.8cm/s LEFT VENTRICLE The left ventricle is normal size. There is mild concentric left ventricular hypertrophy. The left ve ntricular systolic function is normal. The Ejection Fraction is 60-65%. There is normal LV segmental wall motion. Unable to assess left ventricular diastolic function due to arrhythmia. RIGHT VENTRICLE The right ventricle is normal size. There is normal right ventricular wall thickness. The right ventr icular systolic function is normal. ATRIA The left atrium is moderately dilated. The right atrium size is normal. The interatrial septum is int act with no evidence for an atrial septal defect or patent foramen ovale as noted on 2-D or Doppler i mono. AORTIC VALVE The aortic valve is mildly sclerotic. Doppler and Color Flow revealed no significant aortic regurgita tion. There is no significant aortic valvular stenosis. MITRAL VALVE The mitral valve leaflets are thickened. There is no evidence of mitral valve prolapse. There is no m itral valve stenosis. Doppler and Color Flow revealed moderate mitral regurgitation. TRICUSPID VALVE Doppler and Color Flow revealed mild to moderate tricuspid regurgitation. PULMONIC VALVE Doppler and Color Flow revealed mild pulmonic valvular regurgitation. There is no pulmonic valvular s tenosis. GREAT VESSELS The aortic root is normal in size. The ascending aorta is Mildly dilated. The pulmonary artery is nor mal. The IVC is normal in size and collapses >50% with inspiration. PERICARDIAL EFFUSION There is no evidence of significant pericardial effusion. Critical Notification Critical Value: No <Conclusion> The left ventricular systolic function is normal. The Ejection Fraction is 60-65%. There is normal LV segmental wall motion. The left atrium is moderately dilated. Moderate mitral regurgitation. Mild to moderate tricuspid regurgitation. There is no evidence of significant pericardial effusion.
[2016-10-11 19:45] VITALS: BP 99/61
[2016-10-11] MEDS: LOSARTAN POTASSIUM 50 MG TABLET. PO SCH (21:00)
[2016-10-11] MEDS: EZETIMIBE 10 MG TABLET PO SCH (22:03)
[2016-10-11] MEDS: SERTRALINE 50 MG TABLET. PO SCH (22:03)
[2016-10-11] MEDS: SIMVASTATIN 40 MG TABLET. PO SCH (22:03)
[2016-10-11] MEDS: TAMSULOSIN 0.4 MG CAP.ER.24H. PO SCH (22:03)
[2016-10-11 23:22] VITALS: BP 127/78
[2016-10-12] VITALS (16 sets, daily range): BP systolic 92–158; BP diastolic 51–98
[2016-10-12 05:43] LABS: HEMATOCRIT 30.3 % (39.0-53.0); HEMOGLOBIN 10.1 g/dL (13.0-17.5); RED BLOOD COUNT 3.29 x10^6/uL (4.30-5.70); RED CELL DISTRIBUTION WIDTH 14.7 % (11.5-14.5); WHITE BLOOD COUNT 4.5 x10^3/uL (4.0-11.0)
[2016-10-12 06:15] LABS: ALBUMIN 2.5 g/dL (3.4-5.0); CALCIUM 11.9 mg/dL (8.5-10.1); CREATININE 8.4 mg/dL (0.7-1.3); GFR 6.1; PHOSPHORUS 4.3 mg/dL (2.6-4.7)
[2016-10-12 06:21] LABS: PHOSPHORUS 4.4 mg/dL (2.6-4.7)
[2016-10-12] MEDS: CARVEDILOL 12.5 MG TABLET PO SCH ×2 (08:47→22:30)
[2016-10-12] MEDS: ASPIRIN 81 MG TAB.CHEW PO SCH (08:47)
[2016-10-12] MEDS: CALCITONIN,SALMON 400 UNIT/2 ML VIAL. SQ SCH (08:51)
[2016-10-12] MEDS: FENOFIBRATE,MICRONIZED 134 MG CAPSULE PO SCH (09:00)
[2016-10-12] MEDS: MULTIVITAMIN with MINERAL TABLET. PO SCH (09:00)
[2016-10-12] MEDS: DABIGATRAN ETEXILATE 75 MG CAPSULE. PO SCH (09:00)
[2016-10-12] MEDS: CHOLECALCIFEROL (VITAMIN D3) 5,000 UNIT CAPSULE PO SCH (09:00)
[2016-10-12] MEDS ORDERED: IV RINGERS,LACTATED 1000ML 1,000 ML IV SCH (09:29)
[2016-10-12] MEDS ORDERED: LIDOCAINE 1% 1 ML SYRINGE. ID PRN (09:30)
[2016-10-12] MEDS ORDERED: PROCHLORPERAZINE 10 MG/2 ML VIAL. IV PRN (09:30)
[2016-10-12] MEDS ORDERED: ONDANSETRON PF 4 MG/2 ML VIAL. IV PRN (09:30)
[2016-10-12] MEDS ORDERED: FENTANYL PF 100 MCG/2 ML VIAL. IV PRN ×2 (09:30)
[2016-10-12] MEDS ORDERED: MORPHINE SULFATE 2 MG/ML DISP.SYRIN. IV PRN (09:30)
[2016-10-12] MEDS ORDERED: HYDROMORPHONE 2 MG/ML VIAL. IV PRN (09:30)
--- NOTE | 2016-10-12 11:14 | PDOC ---
SUBJECTIVE ROS YURI Doing same overall CVS: no Orthopnea, no CP RESP: no SOB, no ZEPEDA GI: no Nausea, no Vomiting : no Dysuria, no Urgency OBJECTIVE Vital Signs Vital Signs Date Time Temp Pulse Resp B/P Pulse Ox O2 Delivery O2 Flow Rate FiO2 10/12/16 08:47 72 132/86 10/12/16 07:00 97.5 20 97 Room Air 97.5 I & 0 Intake and Output 10/12/16 07:00 Intake Total 1600 ml Output Total 10 ml Balance 1590 ml Intake Oral 650 ml IV Total 950 ml Output Urine Total 10 ml # Bowel Movements 3 PHYSICAL EXAM Physical Exam General Appearance: Awake Alert Oriented x 3 In no Distress Eyes: VIsion Unchanged Conjunctiva Normal EN: No EN Drainage Mucous Memb. moist Neck: no JVD no JVP Supple no Thyromegaly CVS: S1 S2 soft Murmur No Gallop No Rub no Edema Resp: no Rales no Rhonchi no Acc. Muscle use GI: BS +ve NO Bruit Non Tender Non Distended : no CVA tenderness; no Suprapubic Tenderness SKIN: no Rashes Breast Exam deferred Mu.Sk: Adequate ROM no Muscle Atrophy Heme: Unable to palpate Obvious LAD no palp Splenomegaly NEURO: Good Strength and Tone Cranial Nerves II - XII grossly intact Psych: not Depressed no Active hallucination ASSESSMENT/PLAN Assessment/Plan ARF: suspect VMN from NSAIDs, ^ Krishna, dehydration, and now Hydronephrosis too. etc., Reval renal function after Ureteral Stentin Hydronephrosis - URO eval appreciated, Ureteral Stenting today ^K - better after Kayexalate, suspect due to renal failure, NSAIDs ^Krishna - better after Miacalcin x 3; was on Krishna + Vit D; ? Co-relation with Bone / spine pain. Myeloma W/up ordered; PTH is appropriately lowish. VIt D is still lowish. ? Lymphoma vs Bone mets Back Pain (predates) and fall - spine xrays noted - ? DJD vs due to [place] HypoAlbuminemia - Evall for PEPs in setting of YURI, ^ Krishna Dehydration - Probably resolved now Oliguria - reval after URO Procedure Anemia: check Iron; No Epogen for now pending R/o of malignancy; Transfuse as needed. HTN: Current BP meds reviewed. See orders for changes. Long Discussion with family at bedside about CT findings, Ureteral compressions , Possible Cysto findings and Biopsy of mass options COMMENT/RELEVANT DATA Meds Current Medications Medications (Trade) Dose Ordered Sig/Selena Start Time Stop Time Status Last Admin Dose Admin Aspirin (Children'S Aspirin) 81 mg DAILY08 10/10/16 14:00 10/12/16 08:47 81 MG Calcitonin [place] (Miacalcin) 400 unit BID 10/10/16 21:00 10/12/16 08:51 400 UNIT Carvedilol (Coreg) 25 mg BIDWMEALS 10/10/16 17:00 10/12/16 08:47 25 MG Dabigatran (Pradaxa) 75 mg BID 10/11/16 09:00 10/11/16 10:03 75 MG EZETIMIBE (Zetia) 10 mg HS 10/10/16 21:00 10/11/16 22:03 10 MG Fenofibrate (Lofibra) 134 mg DAILY 10/10/16 14:00 10/11/16 08:36 134 MG Fentanyl Citrate (Fentanyl 2ml Vial) 50 mcg PRN Q5MIN PRN 10/12/16 09:30 10/13/16 09:29 Hydromorphone HCl (Dilaudid) 0.5 mg PRN Q10MIN PRN 10/12/16 09:30 10/13/16 09:29 Info (Anti-Coagulation Monitoring By Pharmacy) 1 each PRN DAILY PRN 10/10/16 14:45 10/11/16 08:28 1 EACH Lactated Ringer's (Iv Lactated Ringers) 1,000 ml @ 0 mls/hr Q0M 10/12/16 09:29 10/12/16 21:28 Levofloxacin/ Dextrose (LEVAQUIN 250mg PREMIX) 50 ml @ 50 mls/hr Q24H 10/12/16 10:00 10/12/16 10:59 50 MLS/HR Lidocaine HCl 2 ml 1X PRN PRN 10/12/16 09:30 10/13/16 09:29 Losartan Potassium (Cozaar) 100 mg QHS 10/10/16 21:00 10/10/16 21:48 100 MG Magnesium Sulfate/ Dextrose (Magnesium Sulfate PREMIX 2GM) 50 ml @ 25 mls/hr PRN DAILY PRN 10/10/16 13:30 Morphine Sulfate 1 mg 1 mg PRN Q10MIN PRN 10/12/16 09:30 10/13/16 09:29 Multivitamins/ Calcium (Thera M Plus) 1 tab DAILY 10/10/16 14:00 10/11/16 08:36 1 TAB Non-Formulary Medication 20 meq DAILYWSUP 10/10/16 17:00 UNV Ondansetron HCl (Zofran) 4 mg PRN Q6HRS PRN 10/12/16 09:30 10/13/16 09:29 Potassium Chloride (Klor-Con) 20 meq DAILYWSUP 10/10/16 17:00 10/10/16 17:00 DC Prochlorperazine Edisylate 5 mg 5 mg PACU PRN PRN 10/12/16 09:30 10/13/16 09:29 Sertraline HCl (Zoloft) 50 mg HS 10/10/16 21:00 10/11/16 22:03 50 MG Simvastatin (Zocor) 80 mg QHS 10/10/16 21:00 10/11/16 22:03 80 MG Sodium Polystyrene Sulfonate (Kayexalate) 45 gm 1X ONCE 10/10/16 13:30 10/10/16 13:44 DC 10/10/16 15:07 45 GM Sodium Chloride 1,000 ml @ 100 mls/hr Q10H 10/10/16 11:00 10/11/16 21:27 DC 10/11/16 08:49 100 MLS/HR Spironolactone (Aldactone) 25 mg DAILY 10/10/16 14:00 10/10/16 14:17 DC Tamsulosin HCl (Flomax) 0.4 mg HS 10/10/16 21:00 10/11/16 22:03 0.4 MG Vitamin D (Vitamin D3) 5,000 unit DAILY 10/10/16 14:00 10/11/16 08:37 5,000 UNIT Lab Laboratory Tests Test 10/12/16 04:52 White Blood Count 4.5x10^3/uL (4.0-11.0) Red Blood Count 3.29x10^6/uL (4.30-5.70) Hemoglobin 10.1g/dL (13.0-17.5) Hematocrit 30.3% (39.0-53.0) Mean Corpuscular Volume 92fL (79-100) Mean Corpuscular Hemoglobin 31pg (25-35) Mean Corpuscular Hemoglobin Concent 33g/dL (31-37) Red Cell Distribution Width 14.7% (11.5-14.5) Platelet Count 136x10^3/uL (140-400) Sodium Level 138mmol/L (136-145) Potassium Level 5.0mmol/L (3.5-5.1) Chloride Level 105mmol/L (98-107) Carbon Dioxide Level 23mmol/L (21-32) Anion Gap 10 (6-14) Blood Urea Nitrogen 68mg/dL (8-26) Creatinine 8.4mg/dL (0.7-1.3) Estimated GFR (Cockcroft-Gault) 6.1 Glucose Level 89mg/dL (70-99) Calcium Level 11.9mg/dL (8.5-10.1) Phosphorus Level 4.3mg/dL (2.6-4.7) Magnesium Level 2.0mg/dL (1.8-2.4) Albumin 2.5g/dL (3.4-5.0) DIAZ GUNN MD Oct 12, 2016 11:14
[2016-10-12] MEDS ORDERED: IOHEXOL 300 MG/ML 50 ML VIAL. ONE (11:38)
[2016-10-12] MEDS ORDERED: PROPOFOL 20 ML IV ONE (12:25)
[2016-10-12] MEDS ORDERED: FENTANYL PF 100 MCG/2 ML VIAL. ONE (12:25)
[2016-10-12] MEDS ORDERED: ONDANSETRON PF 4 MG/2 ML VIAL. ONE (12:25)
[2016-10-12] MEDS ORDERED: LIDOCAINE 2% 100 MG/5 ML DISP.SYRIN. ONE (12:25)
[2016-10-12] MEDS ORDERED: DEXAMETHASONE SOD PHOS 20 MG/5 ML VIAL. ONE (12:25)
--- NOTE | 2016-10-12 13:06 | PDOC ---
PROGRESS NOTES Subjective Subjective Pt awake and pleasant this am. Objective Objective Pt awake and alert. NAD at rest. VSS. Afebrile. Vital Signs Date Time Temp Pulse Resp B/P Pulse Ox O2 Delivery O2 Flow Rate FiO2 10/12/16 12:40 98.2 79 16 151/100 95 Room Air 98.2 Intake and Output 10/12/16 07:00 Intake Total 1600 ml Output Total 10 ml Balance 1590 ml Intake Oral 650 ml IV Total 950 ml Output Urine Total 10 ml # Bowel Movements 3 Plan Plan of Care 1. Acute renal failure -Creat 5.5 upon admission, 6.7 this am. Baseline 1.4 -IVF -Renal US: Left greater than right hydronephrosis with small left renal cyst -Coleman placed -Renal team consulting -CT abdomen: Large soft tissue mass encasing the infrarenal abdominal aorta and iliac arteries, left greater than right, as described above. Diagnostic considerations include severe retroperitoneal fibrosis or a neoplastic etiology such as lymphoma or metastatic disease. -Uretal stenting planned for today -Dr Ross consulted to help with eval, tx and bx 2. Hyperkalemia -K 5.9 upon admission, 5.0 this am following Kayexalate dosing 3. 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 Probable associated spinal stenosis at L2-3 due to retropulsion at the L2 fracture site. Moderate multilevel degenerative change. Distal abdominal aortic aneurysm. 5. Anemia -Hgb 11.8 upon admission, 10.2 this am -TIBC 283, Iron 57, Ferritin 752 -Recheck CBC in am 6. HTN -Restart home meds Concerned of possible Multiple Myeloma. Total protein normal, serum protein electrophoresis elevated. Comment Review of Relevant I have reviewed the following items juan (where applicable) has been applied. Labs Laboratory Tests Test 10/10/16 14:20 10/11/16 04:30 10/12/16 04:52 Vitamin B12 Level 510pg/mL (211-946) 25-Hydroxy Vitamin D Total 20.7ng/mL (30.0-100.0) Immunoglobulin [place]/Lambda Ratio 1.79 (0.26-1.65) Free [place] Light Chains 49.87mg/L (3.30-19.40) Free [place] Light Chains 27.84mg/L (5.71-26.30) Hemoglobin 10.2g/dL (13.0-17.5) 10.1g/dL (13.0-17.5) Sodium Level 138mmol/L (136-145) 138mmol/L (136-145) Potassium Level 5.0mmol/L (3.5-5.1) 5.0mmol/L (3.5-5.1) Chloride Level 105mmol/L (98-107) 105mmol/L (98-107) Carbon Dioxide Level 24mmol/L (21-32) 23mmol/L (21-32) Anion Gap 9 (6-14) 10 (6-14) Blood Urea Nitrogen 60mg/dL (8-26) 68mg/dL (8-26) Creatinine 6.7mg/dL (0.7-1.3) 8.4mg/dL (0.7-1.3) Estimated GFR (Cockcroft-Gault) 7.9 6.1 BUN/Creatinine Ratio 9 (6-20) Glucose Level 90mg/dL (70-99) 89mg/dL (70-99) Calcium Level 12.4mg/dL (8.5-10.1) 11.9mg/dL (8.5-10.1) Phosphorus Level 3.8mg/dL (2.6-4.7) 4.3mg/dL (2.6-4.7) Magnesium Level 2.0mg/dL (1.8-2.4) 2.0mg/dL (1.8-2.4) Total Bilirubin 0.5mg/dL (0.2-1.0) Aspartate Amino Transf (AST/SGOT) 36U/L (15-37) Alanine Aminotransferase (ALT/SGPT) 17U/L (16-63) Alkaline Phosphatase 71U/L (46-116) Total Protein 5.7g/dL (6.4-8.2) Albumin 2.5g/dL (3.4-5.0) 2.5g/dL (3.4-5.0) Albumin/Globulin Ratio 0.8 (1.0-1.7) White Blood Count 4.5x10^3/uL (4.0-11.0) Red Blood Count 3.29x10^6/uL (4.30-5.70) Hematocrit 30.3% (39.0-53.0) Mean Corpuscular Volume 92fL (79-100) Mean Corpuscular Hemoglobin 31pg (25-35) Mean Corpuscular Hemoglobin Concent 33g/dL (31-37) Red Cell Distribution Width 14.7% (11.5-14.5) Platelet Count 136x10^3/uL (140-400) Laboratory Tests Test 10/12/16 04:52 White Blood Count 4.5x10^3/uL (4.0-11.0) Red Blood Count 3.29x10^6/uL (4.30-5.70) Hemoglobin 10.1g/dL (13.0-17.5) Hematocrit 30.3% (39.0-53.0) Mean Corpuscular Volume 92fL (79-100) Mean Corpuscular Hemoglobin 31pg (25-35) Mean Corpuscular Hemoglobin Concent 33g/dL (31-37) Red Cell Distribution Width 14.7% (11.5-14.5) Platelet Count 136x10^3/uL (140-400) Sodium Level 138mmol/L (136-145) Potassium Level 5.0mmol/L (3.5-5.1) Chloride Level 105mmol/L (98-107) Carbon Dioxide Level 23mmol/L (21-32) Anion Gap 10 (6-14) Blood Urea Nitrogen 68mg/dL (8-26) Creatinine 8.4mg/dL (0.7-1.3) Estimated GFR (Cockcroft-Gault) 6.1 Glucose Level 89mg/dL (70-99) Calcium Level 11.9mg/dL (8.5-10.1) Phosphorus Level 4.3mg/dL (2.6-4.7) Magnesium Level 2.0mg/dL (1.8-2.4) Albumin 2.5g/dL (3.4-5.0) Medications Current Medications Sodium Chloride 1,000 ml @ 100 mls/hr Q10H IV Last administered on 10/11/16t 08 :49; Start 10/10/16 at 11:00; Stop 10/11/16 at 21:27; Status DC Magnesium Sulfate/ Dextrose (Magnesium Sulfate PREMIX 2GM) 50 ml @ 25 mls/hr PRN DAILY PRN IV for Mag < 1.7 on am labs; Start 10/10/16 at 13:30 Sodium Polystyrene Sulfonate (Kayexalate) 45 gm 1X ONCE PO Last administered on 10/10/16 15:07; Start 10/10/16 at 13:30; Stop 10/10/16 at 13:44; Status DC Aspirin (Children'S Aspirin) 81 mg DAILY08 PO Last administered on 10/12/16 08: 47; Start 10/10/16 at 14:00 Dabigatran (Pradaxa) 150 mg BID PO Last administered on 10/10/16 21:48; Start 10/10/16 at 21:00; Stop 10/11/16 at 08:25; Status DC Potassium Chloride (Klor-Con) 20 meq DAILYWSUP PO ; Start 10/10/16 at 17:00; Stop 10/10/16 at 17:00; Status DC Sertraline HCl (Zoloft) 50 mg HS PO Last administered on 10/11/16 22:03; Start 10/10/16 at 21:00 Spironolactone (Aldactone) 25 mg DAILY PO ; Start 10/10/16 at 14:00; Stop at 14:17; Status DC Tamsulosin HCl (Flomax) 0.4 mg HS PO Last administered on 10/11/16 22:03; Start 10/10/16 at 21:00 Carvedilol (Coreg) 25 mg BIDWMEALS PO Last administered on 10/12/16 08:47; Start 10/10/16 at 17:00 Vitamin D (Vitamin D3) 5,000 unit DAILY PO Last administered on 10/11/16 08:37 ; Start 10/10/16 at 14:00 EZETIMIBE (Zetia) 10 mg DAILY PO ; Start 10/10/16 at 14:00; Stop 10/10/16 at 21: 00; Status Cancel Fenofibrate (Lofibra) 134 mg DAILY PO Last administered on 10/11/16 08:36; Start 10/10/16 at 14:00 Losartan Potassium (Cozaar) 100 mg QHS PO Last administered on 10/10/16 21:48 ; Start 10/10/16 at 21:00 Multivitamins/ Calcium (Thera M Plus) 1 tab DAILY PO Last administered on 08:36; Start 10/10/16 at 14:00 Non-Formulary Medication 20 meq DAILYWSUP PO ; Start 10/10/16 at 17:00; Status UNV Simvastatin (Zocor) 80 mg QHS PO Last administered on 10/11/16 22:03; Start at 21:00 Calcitonin [place] (Miacalcin) 400 unit BID SQ Last administered on 10/12/16 08: 51; Start 10/10/16 at 21:00 Info (Anti-Coagulation Monitoring By Pharmacy) 1 each PRN DAILY PRN MC SEE COMMENTS Last administered on 10/11/16 08:28; Start 10/10/16 at 14:45 Ondansetron HCl (Zofran) 4 mg PRN Q6HRS PRN IV NAUSEA/VOMITING; Start 10/10/16 at 15:30 EZETIMIBE (Zetia) 10 mg HS PO Last administered on 10/11/16 22:03; Start at 21:00 Dabigatran (Pradaxa) 75 mg BID PO Last administered on 10/11/16 10:03; Start at 09:00 Ondansetron HCl (Zofran) 4 mg PRN Q6HRS PRN IV Nausea; Start 10/12/16 at 09:30; Stop 10/13/16 at 09:29 Fentanyl Citrate (Fentanyl 2ml Vial) 25 mcg PRN Q5MIN PRN IV MILD PAIN; Start 10/12/16 at 09:30; Stop 10/13/16 at 09:29 Fentanyl Citrate (Fentanyl 2ml Vial) 50 mcg PRN Q5MIN PRN IV MODERATE PAIN; Start 10/12/16 at 09:30; Stop 10/13/16 at 09:29 Morphine Sulfate 1 mg 1 mg PRN Q10MIN PRN IV SEVERE PAIN; Start 10/12/16 at 09: 30; Stop 10/13/16 at 09:29 Lactated Ringer's (Iv Lactated Ringers) 1,000 ml @ 0 mls/hr Q0M IV Last administered on 10/12/16t 12:43; Start 10/12/16 at 09:29; Stop 10/12/16 at 21:28 Lidocaine HCl 2 ml 1X PRN PRN ID IV START; Start 10/12/16 at 09:30; Stop at 09:29 Hydromorphone HCl (Dilaudid) 0.5 mg PRN Q10MIN PRN IV SEV PAIN,Second choice; Start 10/12/16 at 09:30; Stop 10/13/16 at 09:29 Prochlorperazine Edisylate 5 mg 5 mg PACU PRN PRN IV NAUSEA; Start 10/12/16 at 09:30; Stop 10/13/16 at 09:29 Levofloxacin/ Dextrose (LEVAQUIN 250mg PREMIX) 50 ml @ 50 mls/hr Q24H IV Last administered on 10/12/16t 10:59; Start 10/12/16 at 10:00 Iohexol 50 ml 50 ml STK-MED ONCE .ROUTE ; Start 10/12/16 at 11:38; Stop 10/12/16 at 11:39; Status DC Propofol (Diprivan) 20 ml @ As Directed STK-MED ONCE IV ; Start 10/12/16 at 12:25 ; Stop 10/12/16 at 12:26; Status DC Lidocaine HCl 100 mg STK-MED ONCE .ROUTE ; Start 10/12/16 at 12:25; Stop 10/12/16 at 12:26; Status DC Dexamethasone Sodium Phosphate (Decadron) 20 mg STK-MED ONCE .ROUTE ; Start 10/12 at 12:25; Stop 10/12/16 at 12:26; Status DC Ondansetron HCl (Zofran) 4 mg STK-MED ONCE .ROUTE ; Start 10/12/16 at 12:25; Stop 10/12/16 at 12:26; Status DC Fentanyl Citrate (Fentanyl 2ml Vial) 100 mcg STK-MED ONCE .ROUTE ; Start at 12:25; Stop 10/12/16 at 12:26; Status DC Active Scripts Active Reported Fenofibrate (Fenofibrate Nanocrystallized) 145 Mg Tablet 1 Tab PO DAILYWLUN Potassium Chloride 20 Meq Tablet.er 20 Meq PO DAILYWSUP Calcium (Calcium Carbonate) 600 Mg Tablet 600 Mg PO Vytorin 10-80 Mg Tablet (Ezetimibe/Simvastatin) 1 Each Tablet 1 Each PO HS Multi-Vitamin Daily (Multivitamin) 1 Each Tablet 1 Each PO DAILY Vitamin D3 (Cholecalciferol (Vitamin D3)) 5,000 Unit Tablet 1 Tab PO DAILY Pradaxa (Dabigatran Etexilate Mesylate) 150 Mg Capsule 1 Cap PO BID Zoloft (Sertraline Hcl) 50 Mg Tablet 1 Tab PO HS Tamsulosin Hcl 0.4 Mg Cap.er.24h 1 Cap PO HS Losartan Potassium 100 Mg Tablet 100 Mg PO HS Klor-Con M20 (Potassium Chloride) 20 Meq Tab.er.prt 1 Tab PO DAILY Spironolactone 25 Mg Tablet 1 Tab PO DAILY Aspirin 81 Mg Tab.chew 1 Tab PO DAILY Carvedilol 25 Mg Tablet 1 Tab PO BID Vitals/I & O Vital Sign - Last 24 Hours 10/11/16 10/11/16 10/11/16 10/11/16 15:00 17:12 19:45 19:50 Temp 98.3 97.9 98.3 97.9 Pulse 79 79 78 Resp 18 20 B/P 123/69 123/69 99/61 Pulse Ox 95 93 O2 Delivery Room Air Room Air Room Air 10/11/16 10/11/16 10/12/16 10/12/16 21:00 23:22 03:42 07:00 Temp 97.7 97.7 97.5 97.7 97.7 97.5 Pulse 78 81 72 79 Resp 20 20 20 B/P 99/61 127/78 132/86 141/90 Pulse Ox 94 94 97 O2 Delivery Room Air Room Air Room Air 10/12/16 10/12/16 10/12/16 10/12/16 08:00 08:47 11:00 12:40 Temp 97.7 98.2 97.7 98.2 Pulse 72 80 79 Resp 18 16 B/P 132/86 142/98 151/100 Pulse Ox 95 95 O2 Delivery Room Air Room Air Room Air Intake and Output 10/11/16 10/11/16 10/12/16 15:00 23:00 07:00 Intake Total 1400 ml 200 ml Output Total 0 ml 10 ml Balance 1400 ml 190 ml AYALA LYMAN MD Oct 12, 2016 13:06
--- NOTE | 2016-10-12 13:24 | CONS ---
DATE OF CONSULTATION: 10/11/2016 CHIEF COMPLAINT: Acute renal failure, hypercalcemia, hyperkalemia. HISTORY OF PRESENT ILLNESS: This 81-year-old male that was admitted by Dr. Cali due the fact that patient had abnormal laboratory studies. He was found to be in acute renal failure. He has been seen by nephrology. The patient had a Coleman catheter placed earlier today, the urine output has been very little. Urology was asked to see the patient due to the finding of bilateral hydronephrosis on the CT scan, most likely caused by this large retroperitoneal mass that was seen on the CT scan as well. PAST MEDICAL HISTORY: History of melanoma, hypertension, benign prosthetic hyperplasia. PAST SURGICAL HISTORY: The patient denies any previous surgery to the prostate or urological system. He has had knee replacement. ALLERGIES: No known drug allergies. PHYSICAL EXAMINATION: GENERAL DESCRIPTION: A very pleasant 81-year-old male who is alert and oriented. He denies any acute pain at this time. ABDOMEN: Soft. He denies flank pain bilaterally. There are no palpable abdominal masses. No suprapubic tenderness. GENITALIA: The patient has indwelling Coleman catheter. I manipulated the catheter. It appears to be in the bladder and the balloon appears to be at the bladder neck. There has been minimal urine output, however. RECTAL: Not performed at this time. MUSCULOSKELETAL: Negative for cyanosis or edema. LABORATORY DATA: The patient's creatinine is 6.7, BUN is 60, electrolytes were normal. Calcium was elevated at 12.4. Alkaline phosphatase of 5.7. CBC, the patient's hemoglobin is 11.8, hematocrit 35.2, platelet count 154,000. Urinalysis, none on the chart. X-RAY STUDIES: A CT scan of the abdomen and pelvis without contrast was performed today. This revealed a large retroperitoneal mass measuring about 12.7 cm in width and 7.7 cm in AP dimension. This is at the level of the aortic bifurcation. CT scan demonstrated bilateral hydronephrosis, dilated proximal ureters. It appears that the mass is causing obstruction to the ureters at the level of the pelvis. The prostate gland was noted to be larger. Coleman catheter balloon was noted to be in satisfactory position in the bladder. IMPRESSION: 1. Acute renal failure. 2. Large retroperitoneal mass. 3. Bilateral ureteral obstruction with bilateral hydronephrosis. PLAN: I discussed the findings with the patient and his family. 1. I plan to place him on the schedule tomorrow for bilateral retrograde pyelograms and placement of bilateral ureteral stents. 2. I have asked the nurses to irrigate the Coleman catheter to see if perhaps, it is obstructed with mucus. Thank you for the opportunity to participate in evaluation of this patient. IVA LR DO DR: VALERIA/miranda JOB#: [id number] / [id number]
[2016-10-12] MEDS ORDERED: PHENYLEPHRINE in 0.9% NACL PF 1 MG/10 ML DISP.SYRIN. IV ONE (13:59)
[2016-10-12 14:36] LABS: HEMOGLOBIN 10.2 g/dL (13.0-17.5)
[2016-10-12 14:44] LABS: INR 4.4 (0.8-1.1)
[2016-10-12 14:47] LABS: PROTHROMBIN TIME PATIENT 39.8 SEC (11.7-14.0)
[2016-10-12] MEDS ORDERED: LIDOCAINE 2% 20 ML VIAL. ONE (15:40)
[2016-10-12] MEDS ORDERED: HEPARIN for IV BOLUS 10,000 UNIT/10 ML VIAL. ONE (15:40)
[2016-10-12] MEDS ORDERED: LIDOCAINE 1%/EPI 1:100,000 20 ML VIAL. ONE (15:43)
--- NOTE | 2016-10-12 15:53 | PDOC ---
BRIEF OPERATIVE NOTE Date: Oct 12, 2016 Pre-Op Diagnosis Acute Renal Failure, bilateral ureteral obstruction, retroperitoneal mass, Post-Op Diagnosis Same, gross hematuria, hemorrhagic prostate, coagulopathy Procedure Performed Cystoscopy attempted stent placement Fulguration of hemorrhagic prostate Surgeon Indu Anesthesia Type: General Blood Loss 250cc Urine Output minimal Specimens Obtained None Findings Gross hematuria,Hemorrhagic prostate, coagulopathy Complications gross hematuria unable to place ureteral stents Additional Remarks 4 units of FFP ordered Dr Reilly notified that dialysis may be necessary orders have been made to correct coagulopathy IVA LR DO Oct 12, 2016 15:53
--- NOTE | 2016-10-12 16:13 | PDOC ---
Dialysis Progress Note Dialysis Note Dialysis Note Addendum to Bharti note from today dictated # [id number]. Will proceed with HD as below ARF: Dialysis as below F 180 NR 3.0 Hrs 2 K 2.0 Ca 140 Na 35 HC03 Qb 350 + Qd 500+ Heparin 0 Units Uf 1 Kgs or to dry weight as tolerated May give 25-50 gms of 25% Albumin if needed to maintain Hemodynamic stability Treatment plan reviewed and discussed with wood flour miller FFP to be given on HD as ordered. Not sure if Vit K will help with INR correction. Total time co-ordination of Care > 40 min in 2 separate increments Vitals Vital Signs Vital Signs Date Time Temp Pulse Resp B/P Pulse Ox O2 Delivery O2 Flow Rate FiO2 10/12/16 15:39 97.2 79 20 149/91 97.2 10/12/16 12:40 95 Room Air Labs Last Labs Laboratory Tests Test 10/11/16 04:30 10/12/16 04:52 10/12/16 14:20 10/12/16 14:25 Hemoglobin 10.2g/dL (13.0-17.5) 10.1g/dL (13.0-17.5) 10.2g/dL (13.0-17.5) Sodium Level 138mmol/L (136-145) 138mmol/L (136-145) Potassium Level 5.0mmol/L (3.5-5.1) 5.0mmol/L (3.5-5.1) Chloride Level 105mmol/L (98-107) 105mmol/L (98-107) Carbon Dioxide Level 24mmol/L (21-32) 23mmol/L (21-32) Anion Gap 9 (6-14) 10 (6-14) Blood Urea Nitrogen 60mg/dL (8-26) 68mg/dL (8-26) Creatinine 6.7mg/dL (0.7-1.3) 8.4mg/dL (0.7-1.3) Estimated GFR (Cockcroft-Gault) 7.9 6.1 BUN/Creatinine Ratio 9 (6-20) Glucose Level 90mg/dL (70-99) 89mg/dL (70-99) Calcium Level 12.4mg/dL (8.5-10.1) 11.9mg/dL (8.5-10.1) Phosphorus Level 3.8mg/dL (2.6-4.7) 4.3mg/dL (2.6-4.7) Magnesium Level 2.0mg/dL (1.8-2.4) 2.0mg/dL (1.8-2.4) Total Bilirubin 0.5mg/dL (0.2-1.0) Aspartate Amino Transf (AST/SGOT) 36U/L (15-37) Alanine Aminotransferase (ALT/SGPT) 17U/L (16-63) Alkaline Phosphatase 71U/L (46-116) Total Protein 5.7g/dL (6.4-8.2) Albumin 2.5g/dL (3.4-5.0) 2.5g/dL (3.4-5.0) Albumin/Globulin Ratio 0.8 (1.0-1.7) White Blood Count 4.5x10^3/uL (4.0-11.0) 5.0x10^3/uL (4.0-11.0) Red Blood Count 3.29x10^6/uL (4.30-5.70) Hematocrit 30.3% (39.0-53.0) 30.0% (39.0-53.0) Mean Corpuscular Volume 92fL (79-100) Mean Corpuscular Hemoglobin 31pg (25-35) Mean Corpuscular Hemoglobin Concent 33g/dL (31-37) Red Cell Distribution Width 14.7% (11.5-14.5) Platelet Count 136x10^3/uL (140-400) 135x10^3/uL (140-400) Prothrombin Time 39.8SEC (11.7-14.0) Prothromb Time International Ratio 4.4 (0.8-1.1) Activated Partial Thromboplast Time 127SEC (24-38) Fibrinogen 233mg/dL (200-440) Laboratory Tests Test 10/12/16 04:52 10/12/16 14:20 10/12/16 14:25 White Blood Count 4.5x10^3/uL (4.0-11.0) 5.0x10^3/uL (4.0-11.0) Red Blood Count 3.29x10^6/uL (4.30-5.70) Hemoglobin 10.1g/dL (13.0-17.5) 10.2g/dL (13.0-17.5) Hematocrit 30.3% (39.0-53.0) 30.0% (39.0-53.0) Mean Corpuscular Volume 92fL (79-100) Mean Corpuscular Hemoglobin 31pg (25-35) Mean Corpuscular Hemoglobin Concent 33g/dL (31-37) Red Cell Distribution Width 14.7% (11.5-14.5) Platelet Count 136x10^3/uL (140-400) 135x10^3/uL (140-400) Sodium Level 138mmol/L (136-145) Potassium Level 5.0mmol/L (3.5-5.1) Chloride Level 105mmol/L (98-107) Carbon Dioxide Level 23mmol/L (21-32) Anion Gap 10 (6-14) Blood Urea Nitrogen 68mg/dL (8-26) Creatinine 8.4mg/dL (0.7-1.3) Estimated GFR (Cockcroft-Gault) 6.1 Glucose Level 89mg/dL (70-99) Calcium Level 11.9mg/dL (8.5-10.1) Phosphorus Level 4.3mg/dL (2.6-4.7) Magnesium Level 2.0mg/dL (1.8-2.4) Albumin 2.5g/dL (3.4-5.0) Prothrombin Time 39.8SEC (11.7-14.0) Prothromb Time International Ratio 4.4 (0.8-1.1) Activated Partial Thromboplast Time 127SEC (24-38) Fibrinogen 233mg/dL (200-440) Assessment Assessment Problems Medical Problems: (1) Acute renal failure (ARF) Status: Acute Problems: Plan Plan of Care Problems Medical Problems: (1) Acute renal failure (ARF) Status: Acute DIAZ GUNN MD Oct 12, 2016 16:13
--- NOTE | 2016-10-12 16:15 | PDOC ---
Exam Binding End Stitcher Binding End Stitcher Elizabeth Gas Torch Solderer Gas Torch Solderer V Gopal Pre-Procedure Diagnosis Pre-Procedure Diagnosis Bilateral obstructive uropathy, with real failure. Severe coagulopathy. temp HDC requested by Renal Post-Procedure Diagnosis Post-Procedure Diagnosis Same Procedure Performed Procedure Performed Sono guided temp HDC insertion, bedside in PACU Type of Anesthesia Type of Anesthesia Local Estimated Blood Loss EBL: Minimal Drain/Tubes Drains/Tubes Right IJ 14F 20cm Schon Temp HDC Condition of Patient Condition of Patient Stable. No apparent complication. Disposition Disposition STAT pCXR requested in PACU for temp HDC position. Full report to follow. SVEN CANALES MD Oct 12, 2016 16:15
[2016-10-12 16:19] LABS: ALPHA 1 0.3 g/dL (0.0-0.4); ALPHA 2 0.6 g/dL (0.4-1.0); BETA 0.9 g/dL (0.7-1.3); GAMMA 0.9 g/dL (0.4-1.8); M-SPIKE Not Observed g/dL (Not Observed); PROTEIN TOTAL 5.8 g/dL (6.0-8.5)
[2016-10-12] MEDS ORDERED: LIDOCAINE 1%/EPI 1:100,000 20 ML VIAL. IJ ONE (16:30)
[2016-10-12] MEDS ORDERED: IDARUCIZUMAB 2.5 GM/50 ML IV ONE (16:30)
--- NOTE | 2016-10-12 16:30 | RAD ---
Bedside ultrasound-guided right IJ temporary hemodialysis catheter insertion Indication: 81-year-old male with severe coagulopathy, and with bilateral obstructive uropathy resulting in significant renal failure. Bedside temporary dialysis catheter insertion has been requested by renal. Anesthesia: Local only Sterility: All elements of maximal sterile barrier technique, including the use of a cap, mask, sterile gown, sterile gloves, large sterile sheet, appropriate hand hygiene, and 2% chlorhexidine for cutaneous antisepsis (or acceptable alternative antiseptic per current guidelines) were utilized. Procedure: Informed consent was obtained from the patient's daughter, who has power of collections attorney. This procedure was performed bedside in the postanesthesia care unit. Preliminary ultrasound examination of right neck revealed wide patency of right internal jugular vein, which was documented with a single hard copy ultrasound image. Right neck was then prepped and draped in the usual sterile fashion, utilizing all elements of maximal sterile barrier technique, as described above. Using aseptic technique, local anesthesia, direct ultrasound guidance, and the micropuncture system, successful percutaneous entry was achieved into right internal jugular vein. The right IJ venostomy tract was then dilated and a 14 [place] 20 cm temporary hemodialysis catheter was easily advanced centrally over an angiographic guidewire. The catheter was documented to flush and aspirate normally, was packed, and was secured at the right neck exit site utilizing suture and sterile dressing. Patient tolerated the procedure well without apparent complication. A stat portable chest x-ray was requested for line position. Impression: Successful, uneventful ultrasound guided placement of right IJ 14 [place] 20 cm temporary hemodialysis catheter, bedside in the postanesthesia care unit, as described.
--- NOTE | 2016-10-12 16:31 | RAD ---
Portable chest, 10/12/2016: History: Check dialysis catheter placement No previous chest radiographs are available at this time for comparison purposes. A right jugular dialysis type catheter extends into the superior aspect of the right atrium. The heart is mildly enlarged.. There is calcific plaquing of the aorta. The pulmonary vascularity is at the upper limits of normal.. There are mild streaky parahilar and basilar opacities bilaterally. There is no evidence of pleural fluid or pneumothorax. The bony structures are demineralized. IMPRESSION: 1. A right jugular dialysis type catheter extends into the superior aspect of the right atrium. 2. Mild streaky bibasilar atelectasis and/or infiltrate.
[2016-10-12] MEDS ORDERED: IV NORMAL SALINE 1000ML BAG 1,000 ML IV PRN ×2 (17:48)
[2016-10-12] MEDS ORDERED: DIPHENHYDRAMINE 50 MG/ML VIAL IV PRN ×2 (18:00)
[2016-10-12] MEDS ORDERED: 0.9 % SODIUM CHLORIDE 10 ML DISP.SYRIN. IV PRN ×2 (18:00)
[2016-10-12 19:21] LABS: IMMUNOGLOBULIN A 207 mg/dL (61-437); IMMUNOGLOBULIN G 784 mg/dL (700-1600); IMMUNOGLOBULIN M 67 mg/dL (15-143)
[2016-10-12] MEDS ORDERED: APIXABAN 2.5 MG TABLET. PO SCH (21:00)
[2016-10-12] MEDS: SERTRALINE 50 MG TABLET. PO SCH (22:42)
[2016-10-12] MEDS: LOSARTAN POTASSIUM 50 MG TABLET. PO SCH (22:44)
--- NOTE | 2016-10-12 22:44 | OP ---
DATE OF SURGERY: 10/12/2016 PREOPERATIVE DIAGNOSIS: Acute renal failure, bilateral hydronephrosis, large retroperitoneal mass. POSTOPERATIVE DIAGNOSIS: Acute renal failure, bilateral ureteral obstruction, retroperitoneal mass, gross hematuria, hemorrhagic prostate, coagulopathy. PROCEDURE: Cystoscopy, attempted stent placement, fulguration of hemorrhagic prostate. SURGEON: Iva Lr DO. ANESTHESIA: General. ESTIMATED BLOOD LOSS: 250 mL. DRAINS: A 22-Nepalese 3-way Coleman catheter to continuous bladder irrigation. INDICATIONS AND JUDGMENT: This is an 81-year-old male that was admitted to the hospital with acute renal failure, elevated liver enzymes, hypercalcemia and hyperkalemia. A CT scan revealed a large retroperitoneal mass at the level of the aortic bifurcation, which appeared to obstruct the ureters bilaterally. The patient became anuric and his creatinine continued to rise, therefore Urology was asked to place bilateral ureteral stents to relieve the obstruction. The procedure was explained to the patient and to the family. They appeared to understand and were agreeable. DESCRIPTION OF PROCEDURE: The patient was currently on Levaquin. Therefore, he was taken to the operating room and placed on the operating room table, given a general anesthetic and then placed in a dorsolithotomy position using Henry stirrups since we do not have a cystoscopy table. A C-arm was moved into position for the purpose of fluoroscopy. During the prep I noticed that the patient had some blood around his indwelling Coleman catheter, which was a new development. Yesterday his urine was bárbara in color and clear and he had some gross hematuria in the Coleman bag. This Coleman catheter was deflated and removed. The patient was prepped and draped in sterile fashion. Rigid cystoscopy was performed with a 21-Nepalese rigid cystoscope. The urethra was normal in course and caliber. The prostate fossa was visualized. He has a 30-35 gram prostate and there were numerous bleeding vessels noted. The scope was advanced into the bladder. I examined the bladder with a 30 degree and 70 degree lens. I could not identify the ureteral orifices. During this process the bleeding for the prostate became more advanced. Therefore, I discontinued looking for the ureteral orifices and removed the cystoscope. I then advanced a 24-Nepalese resectoscope sheath with a [place] obturator into the urethra and into the bladder. An QSecure resectoscope was utilized with a rollerball electrode. I began to fulgurate the bleeding vessels of the prostate to gain hematuria control. At the same time, ____ the more I coagulated these bleeders, the more bleeding was encountered. Finally, I thought the best option would be to stop the fulguration of prostate and placed a 22-Nepalese Coleman catheter to tamponade the bleeding and therefore that was done and a 22-Nepalese 3-way Coleman catheter was connected to continuous bladder irrigation with saline. The urine return was still quite bloody. At that point, I ordered coagulopathy studies because it seemed that the patient must have coagulopathy with this kind of bleeding with such minimal procedure. The patient's PTT came back 127, his PT came back 39 and his INR was 4.4. Therefore, at that point, anesthesia ordered 4 units of fresh frozen plasma. The catheter was connected to continuous bladder irrigation and he was sent to the recovery room. Plans will be to contact Dr. Reilly to let him know that I was not able to place the stents and to see if he needed to be dialyzed this evening. ____ will also begin to work on his coagulopathy. IVA LR DO DR: VALERIA/miranda JOB#: [id number] / [id number]
[2016-10-12] MEDS: SIMVASTATIN 40 MG TABLET. PO SCH (22:45)
[2016-10-12] MEDS: TAMSULOSIN 0.4 MG CAP.ER.24H. PO SCH (22:45)
[2016-10-12] MEDS: EZETIMIBE 10 MG TABLET PO SCH (22:45)
[2016-10-13] VITALS (52 sets, daily range): BP systolic 92–157; BP diastolic 47–94
[2016-10-13 06:11] LABS: HEMATOCRIT 27.1 % (39.0-53.0); HEMOGLOBIN 9.4 g/dL (13.0-17.5); RED BLOOD COUNT 3.03 x10^6/uL (4.30-5.70); RED CELL DISTRIBUTION WIDTH 14.4 % (11.5-14.5); WHITE BLOOD COUNT 5.9 x10^3/uL (4.0-11.0)
[2016-10-13 06:15] LABS: ALBUMIN 2.5 g/dL (3.4-5.0); CALCIUM 9.6 mg/dL (8.5-10.1); CREATININE 6.4 mg/dL (0.7-1.3); GFR 8.4; PHOSPHORUS 4.8 mg/dL (2.6-4.7); POTASSIUM 4.3 mmol/L (3.5-5.1)
[2016-10-13 06:25] LABS: MAGNESIUM 1.5 mg/dL (1.8-2.4); PHOSPHORUS 4.5 mg/dL (2.6-4.7)
[2016-10-13 09:04] LABS: INR 1.9 (0.8-1.1)
--- NOTE | 2016-10-13 09:20 | PDOC ---
Provider Note Provider Note MED ONC CONSULT 1. ABD mass - agree with bx 2. Coagulopathy due to pradaxa improved. bleeding resolved See dictation [id number] JENNIFER QURESHI MD Oct 13, 2016 09:20
--- NOTE | 2016-10-13 09:47 | PDOC ---
PROGRESS NOTES Subjective Subjective Pt awake and pleasant this am. Objective Objective Pt awake and alert. NAD. VSS. Afebrile. Lungs CTA bilat. Resp even and unlabored. Pt on O2 per NC. Heart with RRR. No murmurs. Vital Signs Date Time Temp Pulse Resp B/P Pulse Ox O2 Delivery O2 Flow Rate FiO2 10/13/16 06:00 77 20 147/86 97 Nasal Cannula 2.0 10/13/16 04:00 98.1 98.1 Intake and Output 10/13/16 07:00 Intake Total 2858 ml Output Total 40089 ml Balance -9717 ml Intake Oral 300 ml IV Total 1050 ml Blood Product IV Normal Saline Flush 1508 ml Output Urine Total 4425 ml Other 8150 ml Assessment Assessment Problems Medical Problems: (1) Acute renal failure (ARF) Status: Acute Plan Plan of Care Pt transfered to ICU on 10/12 secondary to bleeding and need for dialysis. 1. Acute renal failure -Creat 5.5 upon admission, 6.4 this am. Baseline 1.4 -IVF -Renal US: Left greater than right hydronephrosis with small left renal cyst -Coleman placed -Renal team consulting -Dialysis started on 10/12. -CT abdomen: Large soft tissue mass encasing the infrarenal abdominal aorta and iliac arteries, left greater than right, as described above. Diagnostic considerations include severe retroperitoneal fibrosis or a neoplastic etiology such as lymphoma or metastatic disease. -Uretal stenting attempted on 10/12, unsuccessful d/t prostate bleeding. Prodaxa stopped and reversal agent given. Bleeding better this am. Hgb 9.4. -Dr Ross consulted to help with eval, tx and bx - plan for bx this am. 2. Hyperkalemia -K 5.9 upon admission, 5.0 this am following Kayexalate dosing 3. Hypercalcemia -Ca 14.4 upon admission, 11.9 this am following Miacalcin x3 4. [employer] fall -Hematoma present on left forehead -pt with c/o back pain, spine x-rays: L2 and L3 vertebral compression fractures of indeterminate ages. Probable associated spinal stenosis at L2-3 due to retropulsion at the L2 fracture site. Moderate multilevel degenerative change. Distal abdominal aortic aneurysm. 5. Anemia -Hgb 11.8 upon admission, 9.4 this am -TIBC 283, Iron 57, Ferritin 752 -Recheck CBC in am 6. HTN -Restart home meds Concerned of possible Multiple Myeloma. Total protein normal, serum protein electrophoresis elevated. Comment Review of Relevant I have reviewed the following items juan (where applicable) has been applied. Labs Laboratory Tests Test 10/12/16 04:52 10/12/16 14:20 10/12/16 14:25 10/13/16 05:00 White Blood Count 4.5x10^3/uL (4.0-11.0) 5.0x10^3/uL (4.0-11.0) 5.9x10^3/uL (4.0-11.0) Red Blood Count 3.29x10^6/uL (4.30-5.70) 3.03x10^6/uL (4.30-5.70) Hemoglobin 10.1g/dL (13.0-17.5) 10.2g/dL (13.0-17.5) 9.4g/dL (13.0-17.5) Hematocrit 30.3% (39.0-53.0) 30.0% (39.0-53.0) 27.1% (39.0-53.0) Mean Corpuscular Volume 92fL (79-100) 89fL (79-100) Mean Corpuscular Hemoglobin 31pg (25-35) 31pg (25-35) Mean Corpuscular Hemoglobin Concent 33g/dL (31-37) 35g/dL (31-37) Red Cell Distribution Width 14.7% (11.5-14.5) 14.4% (11.5-14.5) Platelet Count 136x10^3/uL (140-400) 135x10^3/uL (140-400) 135x10^3/uL (140-400) Sodium Level 138mmol/L (136-145) 137mmol/L (136-145) Potassium Level 5.0mmol/L (3.5-5.1) 4.3mmol/L (3.5-5.1) Chloride Level 105mmol/L (98-107) 101mmol/L (98-107) Carbon Dioxide Level 23mmol/L (21-32) 27mmol/L (21-32) Anion Gap 10 (6-14) 9 (6-14) Blood Urea Nitrogen 68mg/dL (8-26) 46mg/dL (8-26) Creatinine 8.4mg/dL (0.7-1.3) 6.4mg/dL (0.7-1.3) Estimated GFR (Cockcroft-Gault) 6.1 8.4 Glucose Level 89mg/dL (70-99) 103mg/dL (70-99) Calcium Level 11.9mg/dL (8.5-10.1) 9.6mg/dL (8.5-10.1) Phosphorus Level 4.3mg/dL (2.6-4.7) 4.8mg/dL (2.6-4.7) Magnesium Level 2.0mg/dL (1.8-2.4) 1.5mg/dL (1.8-2.4) Albumin 2.5g/dL (3.4-5.0) 2.5g/dL (3.4-5.0) Prothrombin Time 39.8SEC (11.7-14.0) Prothromb Time International Ratio 4.4 (0.8-1.1) Activated Partial Thromboplast Time 127SEC (24-38) Fibrinogen 233mg/dL (200-440) Test 10/13/16 08:30 Prothrombin Time 21.0SEC (11.7-14.0) Prothromb Time International Ratio 1.9 (0.8-1.1) Activated Partial Thromboplast Time 71SEC (24-38) Laboratory Tests Test 10/12/16 14:20 10/12/16 14:25 10/13/16 05:00 10/13/16 08:30 White Blood Count 5.0x10^3/uL (4.0-11.0) 5.9x10^3/uL (4.0-11.0) Hemoglobin 10.2g/dL (13.0-17.5) 9.4g/dL (13.0-17.5) Hematocrit 30.0% (39.0-53.0) 27.1% (39.0-53.0) Platelet Count 135x10^3/uL (140-400) 135x10^3/uL (140-400) Prothrombin Time 39.8SEC (11.7-14.0) 21.0SEC (11.7-14.0) Prothromb Time International Ratio 4.4 (0.8-1.1) 1.9 (0.8-1.1) Activated Partial Thromboplast Time 127SEC (24-38) 71SEC (24-38) Fibrinogen 233mg/dL (200-440) Red Blood Count 3.03x10^6/uL (4.30-5.70) Mean Corpuscular Volume 89fL (79-100) Mean Corpuscular Hemoglobin 31pg (25-35) Mean Corpuscular Hemoglobin Concent 35g/dL (31-37) Red Cell Distribution Width 14.4% (11.5-14.5) Sodium Level 137mmol/L (136-145) Potassium Level 4.3mmol/L (3.5-5.1) Chloride Level 101mmol/L (98-107) Carbon Dioxide Level 27mmol/L (21-32) Anion Gap 9 (6-14) Blood Urea Nitrogen 46mg/dL (8-26) Creatinine 6.4mg/dL (0.7-1.3) Estimated GFR (Cockcroft-Gault) 8.4 Glucose Level 103mg/dL (70-99) Calcium Level 9.6mg/dL (8.5-10.1) Phosphorus Level 4.8mg/dL (2.6-4.7) Magnesium Level 1.5mg/dL (1.8-2.4) Albumin 2.5g/dL (3.4-5.0) Medications Current Medications Sodium Chloride 1,000 ml @ 100 mls/hr Q10H IV Last administered on 10/11/16 08 :49; Start 10/10/16 at 11:00; Stop 10/11/16 at 21:27; Status DC Magnesium Sulfate/ Dextrose (Magnesium Sulfate PREMIX 2GM) 50 ml @ 25 mls/hr PRN DAILY PRN IV for Mag < 1.7 on am labs; Start 10/10/16 at 13:30 Sodium Polystyrene Sulfonate (Kayexalate) 45 gm 1X ONCE PO Last administered on 10/10/16 15:07; Start 10/10/16 at 13:30; Stop 10/10/16 at 13:44; Status DC Aspirin (Children'S Aspirin) 81 mg DAILY08 PO Last administered on 10/12/16 08: 47; Start 10/10/16 at 14:00; Stop 10/12/16 at 19:37; Status DC Dabigatran (Pradaxa) 150 mg BID PO Last administered on 10/10/16 21:48; Start 10/10/16 at 21:00; Stop 10/11/16 at 08:25; Status DC Potassium Chloride (Klor-Con) 20 meq DAILYWSUP PO ; Start 10/10/16 at 17:00; Stop 10/10/16 at 17:00; Status DC Sertraline HCl (Zoloft) 50 mg HS PO Last administered on 10/12/16 22:42; Start 10/10/16 at 21:00 Spironolactone (Aldactone) 25 mg DAILY PO ; Start 10/10/16 at 14:00; Stop at 14:17; Status DC Tamsulosin HCl (Flomax) 0.4 mg HS PO Last administered on 10/12/16 22:45; Start 10/10/16 at 21:00 Carvedilol (Coreg) 25 mg BIDWMEALS PO Last administered on 10/12/16 08:47; Start 10/10/16 at 17:00 Vitamin D (Vitamin D3) 5,000 unit DAILY PO Last administered on 10/11/16 08:37 ; Start 10/10/16 at 14:00 EZETIMIBE (Zetia) 10 mg DAILY PO ; Start 10/10/16 at 14:00; Stop 10/10/16 at 21: 00; Status Cancel Fenofibrate (Lofibra) 134 mg DAILY PO Last administered on 10/11/16 08:36; Start 10/10/16 at 14:00 Losartan Potassium (Cozaar) 100 mg QHS PO Last administered on 10/12/16 22:44; Start 10/10/16 at 21:00 Multivitamins/ Calcium (Thera M Plus) 1 tab DAILY PO Last administered on 08:36; Start 10/10/16 at 14:00 Non-Formulary Medication 20 meq DAILYWSUP PO ; Start 10/10/16 at 17:00; Status UNV Simvastatin (Zocor) 80 mg QHS PO Last administered on 10/12/16 22:45; Start at 21:00 Calcitonin [place] (Miacalcin) 400 unit BID SQ Last administered on 10/12/16 08: 51; Start 10/10/16 at 21:00; Stop 10/12/16 at 23:52; Status DC Info (Anti-Coagulation Monitoring By Pharmacy) 1 each PRN DAILY PRN MC SEE COMMENTS Last administered on 10/11/16 08:28; Start 10/10/16 at 14:45 Ondansetron HCl (Zofran) 4 mg PRN Q6HRS PRN IV NAUSEA/VOMITING; Start 10/10/16 at 15:30 EZETIMIBE (Zetia) 10 mg HS PO Last administered on 10/12/16 22:45; Start at 21:00 Dabigatran (Pradaxa) 75 mg BID PO Last administered on 10/11/16 10:03; Start at 09:00; Stop 10/12/16 at 14:56; Status DC Ondansetron HCl (Zofran) 4 mg PRN Q6HRS PRN IV Nausea; Start 10/12/16 at 09:30; Stop 10/13/16 at 09:29; Status DC Fentanyl Citrate (Fentanyl 2ml Vial) 25 mcg PRN Q5MIN PRN IV MILD PAIN; Start 10/12/16 at 09:30; Stop 10/13/16 at 09:29; Status DC Fentanyl Citrate (Fentanyl 2ml Vial) 50 mcg PRN Q5MIN PRN IV MODERATE PAIN; Start 10/12/16 at 09:30; Stop 10/13/16 at 09:29; Status DC Morphine Sulfate 1 mg 1 mg PRN Q10MIN PRN IV SEVERE PAIN; Start 10/12/16 at 09: 30; Stop 10/13/16 at 09:29; Status DC Lactated Ringer's (Iv Lactated Ringers) 1,000 ml @ 0 mls/hr Q0M IV Last administered on 10/12/16 12:43; Start 10/12/16 at 09:29; Stop 10/12/16 at 21:28; Status DC Lidocaine HCl 2 ml 1X PRN PRN ID IV START; Start 10/12/16 at 09:30; Stop at 09:29; Status DC Hydromorphone HCl (Dilaudid) 0.5 mg PRN Q10MIN PRN IV SEV PAIN,Second choice; Start 10/12/16 at 09:30; Stop 10/13/16 at 09:29; Status DC Prochlorperazine Edisylate 5 mg 5 mg PACU PRN PRN IV NAUSEA; Start 10/12/16 at 09:30; Stop 10/13/16 at 09:29; Status DC Levofloxacin/ Dextrose (LEVAQUIN 250mg PREMIX) 50 ml @ 50 mls/hr Q24H IV Last administered on 10/12/16t 10:59; Start 10/12/16 at 10:00 Iohexol 50 ml 50 ml STK-MED ONCE .ROUTE ; Start 10/12/16 at 11:38; Stop 10/12/16 at 11:39; Status DC Propofol (Diprivan) 20 ml @ As Directed STK-MED ONCE IV ; Start 10/12/16 at 12:25 ; Stop 10/12/16 at 12:26; Status DC Lidocaine HCl 100 mg STK-MED ONCE .ROUTE ; Start 10/12/16 at 12:25; Stop 10/12/16 at 12:26; Status DC Dexamethasone Sodium Phosphate (Decadron) 20 mg STK-MED ONCE .ROUTE ; Start 10/12 at 12:25; Stop 10/12/16 at 12:26; Status DC Ondansetron HCl (Zofran) 4 mg STK-MED ONCE .ROUTE ; Start 10/12/16 at 12:25; Stop 10/12/16 at 12:26; Status DC Fentanyl Citrate (Fentanyl 2ml Vial) 100 mcg STK-MED ONCE .ROUTE ; Start at 12:25; Stop 10/12/16 at 12:26; Status DC Phenylephrine HCl 1 mg STK-MED ONCE IV ; Start 10/12/16 at 13:59; Stop 10/12/16 at 14:00; Status DC Apixaban (Eliquis) 2.5 mg BID PO ; Start 10/12/16 at 21:00; Stop 10/12/16 at 21:00 ; Status DC Idarucizumab (Praxbind) 5 gm 1X ONCE IV Last administered on 10/12/16 16:48; Start 10/12/16 at 16:30; Stop 10/12/16 at 16:31; Status DC Heparin Sodium (Porcine) 10,000 unit STK-MED ONCE .ROUTE ; Start 10/12/16 at 15: 40; Stop 10/12/16 at 15:41; Status DC Lidocaine HCl 20 ml 20 ml STK-MED ONCE .ROUTE ; Start 10/12/16 at 15:40; Stop 10/12/16 at 15:41; Status DC Heparin Sodium/ Sodium Chloride 500 ml @ As Directed STK-MED ONCE .ROUTE ; Start 10/12/16 at 15:40; Stop 10/12/16 at 15:41; Status DC Lidocaine/ Epinephrine (Xylocaine 1%-Epi 1:100,000) 20 ml STK-MED ONCE .ROUTE ; Start 10/12/16 at 15:43; Stop 10/12/16 at 15:44; Status DC Heparin Sodium (Porcine) 2,400 unit 1X ONCE INT CAT Last administered on 16:27; Start 10/12/16 at 16:30; Stop 10/12/16 at 16:31; Status DC Heparin Sodium/ Sodium Chloride 6 unit 1X ONCE IV Last administered on 16:27; Start 10/12/16 at 16:30; Stop 10/12/16 at 16:31; Status DC Lidocaine/ Epinephrine 2 ml 2 ml 1X ONCE IJ Last administered on 10/12/16 16: 28; Start 10/12/16 at 16:30; Stop 10/12/16 at 16:31; Status DC Sodium Chloride (Iv Sodium Chloride 0.9% 1000ml Bag) 1,000 ml @ 1,000 mls/hr Q1H PRN IV hypotension; Start 10/12/16 at 17:48; Stop 10/12/16 at 23:47; Status DC Diphenhydramine HCl (Benadryl) 25 mg 1X PRN PRN IV ITCHING; Start 10/12/16 at 18 :00; Stop 10/13/16 at 17:59 Diphenhydramine HCl (Benadryl) 25 mg 1X PRN PRN IV ITCHING; Start 10/12/16 at 18 :00; Stop 10/13/16 at 17:59 Sodium Chloride (Normal Saline Flush) 10 ml 1X PRN PRN IV AP catheter pack; Start 10/12/16 at 18:00; Stop 10/13/16 at 17:59 Sodium Chloride 10 ml 10 ml 1X PRN PRN IV ELECTRICIAN SHIP catheter pack; Start 10/12/16 at 18 :00; Stop 10/13/16 at 17:59 Sodium Chloride (Iv Sodium Chloride 0.9% 1000ml Bag) 1,000 ml @ 400 mls/hr Q2H30M PRN IV PATENCY; Start 10/12/16 at 17:48; Stop 10/13/16 at 05:47; Status DC Active Scripts Active Reported Fenofibrate (Fenofibrate Nanocrystallized) 145 Mg Tablet 1 Tab PO DAILYWLUN Potassium Chloride 20 Meq Tablet.er 20 Meq PO DAILYWSUP Calcium (Calcium Carbonate) 600 Mg Tablet 600 Mg PO Vytorin 10-80 Mg Tablet (Ezetimibe/Simvastatin) 1 Each Tablet 1 Each PO HS Multi-Vitamin Daily (Multivitamin) 1 Each Tablet 1 Each PO DAILY Vitamin D3 (Cholecalciferol (Vitamin D3)) 5,000 Unit Tablet 1 Tab PO DAILY Pradaxa (Dabigatran Etexilate Mesylate) 150 Mg Capsule 1 Cap PO BID Zoloft (Sertraline Hcl) 50 Mg Tablet 1 Tab PO HS Tamsulosin Hcl 0.4 Mg Cap.er.24h 1 Cap PO HS Losartan Potassium 100 Mg Tablet 100 Mg PO HS Klor-Con M20 (Potassium Chloride) 20 Meq Tab.er.prt 1 Tab PO DAILY Spironolactone 25 Mg Tablet 1 Tab PO DAILY Aspirin 81 Mg Tab.chew 1 Tab PO DAILY Carvedilol 25 Mg Tablet 1 Tab PO BID Vitals/I & O Vital Sign - Last 24 Hours 10/12/16 10/12/16 10/12/16 10/12/16 11:00 12:40 15:01 15:01 Temp 97.7 98.2 97.3 97.7 98.2 97.3 Pulse 80 79 76 Resp 18 16 20 B/P 142/98 151/100 156/85 Pulse Ox 95 95 98 O2 Delivery Room Air Room Air Simple Mask Mask O2 Flow Rate 10 10 10/12/16 10/12/16 10/12/16 10/12/16 15:15 15:25 15:30 15:39 Temp 97.2 97.2 97.2 97.2 Pulse 76 77 76 79 Resp 20 20 22 20 B/P 154/90 154/90 149/91 149/91 Pulse Ox 98 98 O2 Delivery Simple Mask Nasal Cannula O2 Flow Rate 10 2 10/12/17 2/2/17 2/2/17 2//17 15:45 16:00 16:16 16:17 Temp 97.1 97.1 Pulse 87 82 77 83 Resp 20 20 18 22 B/P 152/54 145/93 152/93 145/93 Pulse Ox 95 96 95 O2 Delivery Nasal Cannula Nasal Cannula Nasal Cannula O2 Flow Rate 2 2 2 2/17 2/17 2//17 /17 16:32 16:37 16:47 17:00 Temp 96.8 96.9 97.0 97.0 96.8 96.9 97.0 97.0 Pulse 86 86 81 82 Resp 20 20 20 20 B/P 154/98 146/89 154/98 137/92 Pulse Ox 96 96 O2 Delivery Nasal Cannula Nasal Cannula O2 Flow Rate 2 2 10/12/17 2/17 2//17 17 17:02 17:15 17:17 17:32 Temp 97.0 96.5 97.0 96.5 Pulse 82 93 82 Resp 20 20 20 B/P 137/95 139/86 139/73 Pulse Ox 95 97 94 O2 Delivery Nasal Cannula Nasal Cannula Nasal Cannula Nasal Cannula O2 Flow Rate 2 2 2 2 10/12/17 2//17 2//17 17 18:00 18:00 18:15 18:30 Temp 97.9 97.9 Pulse 84 86 82 Resp 20 20 22 B/P 139/91 149/89 146/89 Pulse Ox 96 95 96 O2 Delivery Nasal Cannula Nasal Cannula Nasal Cannula Nasal Cannula O2 Flow Rate 2.0 2.0 2.0 2.0 10/12/17 //17 //17 10/12/16 19:00 20:00 20:00 21:00 Temp 97.7 97.7 Pulse 77 78 78 Resp 20 20 20 B/P 116/89 151/92 158/94 Pulse Ox 96 96 97 O2 Delivery Nasal Cannula Nasal Cannula Nasal Cannula Nasal Cannula O2 Flow Rate 2.0 2.0 97.0 2.0 2/2/17 2/2/17 2/2/17 2/2/17 22:00 22:30 22:44 23:00 Pulse 86 91 78 85 Resp 20 20 B/P 158/94 92/51 158/94 92/51 Pulse Ox 97 97 O2 Delivery Nasal Cannula Nasal Cannula O2 Flow Rate 2.0 2.0 10/13/16 10/13/16 10/13/16 10/13/16 00:00 00:00 01:00 02:00 Temp 98.9 98.9 Pulse 100 82 83 Resp 20 20 20 B/P 92/47 119/66 133/81 Pulse Ox 97 97 96 O2 Delivery Nasal Cannula Nasal Cannula Nasal Cannula Nasal Cannula O2 Flow Rate 2.0 2.0 2.0 2.0 10/13/16 10/13/16 10/13/16 10/13/16 03:00 04:00 04:00 05:00 Temp 98.1 98.1 Pulse 84 84 78 Resp 20 20 20 B/P 112/76 117/76 127/78 Pulse Ox 97 97 96 O2 Delivery Nasal Cannula Nasal Cannula Nasal Cannula Nasal Cannula O2 Flow Rate 2.0 2.0 2.0 2.0 10/13/16 06:00 Pulse 77 Resp 20 B/P 147/86 Pulse Ox 97 O2 Delivery Nasal Cannula O2 Flow Rate 2.0 Intake and Output 10/12/16 10/12/16 10/13/16 15:00 23:00 07:00 Intake Total 50 ml 2508 ml 300 ml Output Total 7475 ml 5100 ml Balance 50 ml -4967 ml -4800 ml AYALA LYMAN MD Oct 13, 2016 09:47
--- NOTE | 2016-10-13 10:13 | PDOC ---
Dialysis Progress Note Dialysis Note Dialysis Note Seen on HD; Gonzalo Fine for now Vitals: 131/87 71 afeb General Appearance: Awake: Alert Oriented x 2-3 Neck: No JVD or JVP Chest: CTA [place] Heart: S1 S2 Abdomen - Soft NTND Extremities - No Edema ARF: (obstructive Uropahty) Dialysis as below F 180 NR 3.0 Hrs 3 K 2.0 Ca 140 Na 35 HC03 Qb 350 + Qd 500+ Heparin 0 Units Uf 0.5 Kgs or to dry weight as tolerated May give 25-50 gms of 25% Albumin if needed to maintain Hemodynamic stability Treatment plan reviewed and discussed with ict teacher Vitals Vital Signs Vital Signs Date Time Temp Pulse Resp B/P Pulse Ox O2 Delivery O2 Flow Rate FiO2 10/13/16 06:00 77 20 147/86 97 Nasal Cannula 2.0 10/13/16 04:00 98.1 98.1 Labs Last Labs Laboratory Tests Test 10/12/16 04:52 10/12/16 14:20 10/12/16 14:25 10/13/16 05:00 White Blood Count 4.5x10^3/uL (4.0-11.0) 5.0x10^3/uL (4.0-11.0) 5.9x10^3/uL (4.0-11.0) Red Blood Count 3.29x10^6/uL (4.30-5.70) 3.03x10^6/uL (4.30-5.70) Hemoglobin 10.1g/dL (13.0-17.5) 10.2g/dL (13.0-17.5) 9.4g/dL (13.0-17.5) Hematocrit 30.3% (39.0-53.0) 30.0% (39.0-53.0) 27.1% (39.0-53.0) Mean Corpuscular Volume 92fL (79-100) 89fL (79-100) Mean Corpuscular Hemoglobin 31pg (25-35) 31pg (25-35) Mean Corpuscular Hemoglobin Concent 33g/dL (31-37) 35g/dL (31-37) Red Cell Distribution Width 14.7% (11.5-14.5) 14.4% (11.5-14.5) Platelet Count 136x10^3/uL (140-400) 135x10^3/uL (140-400) 135x10^3/uL (140-400) Sodium Level 138mmol/L (136-145) 137mmol/L (136-145) Potassium Level 5.0mmol/L (3.5-5.1) 4.3mmol/L (3.5-5.1) Chloride Level 105mmol/L (98-107) 101mmol/L (98-107) Carbon Dioxide Level 23mmol/L (21-32) 27mmol/L (21-32) Anion Gap 10 (6-14) 9 (6-14) Blood Urea Nitrogen 68mg/dL (8-26) 46mg/dL (8-26) Creatinine 8.4mg/dL (0.7-1.3) 6.4mg/dL (0.7-1.3) Estimated GFR (Cockcroft-Gault) 6.1 8.4 Glucose Level 89mg/dL (70-99) 103mg/dL (70-99) Calcium Level 11.9mg/dL (8.5-10.1) 9.6mg/dL (8.5-10.1) Phosphorus Level 4.3mg/dL (2.6-4.7) 4.8mg/dL (2.6-4.7) Magnesium Level 2.0mg/dL (1.8-2.4) 1.5mg/dL (1.8-2.4) Albumin 2.5g/dL (3.4-5.0) 2.5g/dL (3.4-5.0) Prothrombin Time 39.8SEC (11.7-14.0) Prothromb Time International Ratio 4.4 (0.8-1.1) Activated Partial Thromboplast Time 127SEC (24-38) Fibrinogen 233mg/dL (200-440) Test 10/13/16 08:30 Prothrombin Time 21.0SEC (11.7-14.0) Prothromb Time International Ratio 1.9 (0.8-1.1) Activated Partial Thromboplast Time 71SEC (24-38) Laboratory Tests Test 10/12/16 14:20 10/12/16 14:25 10/13/16 05:00 10/13/16 08:30 White Blood Count 5.0x10^3/uL (4.0-11.0) 5.9x10^3/uL (4.0-11.0) Hemoglobin 10.2g/dL (13.0-17.5) 9.4g/dL (13.0-17.5) Hematocrit 30.0% (39.0-53.0) 27.1% (39.0-53.0) Platelet Count 135x10^3/uL (140-400) 135x10^3/uL (140-400) Prothrombin Time 39.8SEC (11.7-14.0) 21.0SEC (11.7-14.0) Prothromb Time International Ratio 4.4 (0.8-1.1) 1.9 (0.8-1.1) Activated Partial Thromboplast Time 127SEC (24-38) 71SEC (24-38) Fibrinogen 233mg/dL (200-440) Red Blood Count 3.03x10^6/uL (4.30-5.70) Mean Corpuscular Volume 89fL (79-100) Mean Corpuscular Hemoglobin 31pg (25-35) Mean Corpuscular Hemoglobin Concent 35g/dL (31-37) Red Cell Distribution Width 14.4% (11.5-14.5) Sodium Level 137mmol/L (136-145) Potassium Level 4.3mmol/L (3.5-5.1) Chloride Level 101mmol/L (98-107) Carbon Dioxide Level 27mmol/L (21-32) Anion Gap 9 (6-14) Blood Urea Nitrogen 46mg/dL (8-26) Creatinine 6.4mg/dL (0.7-1.3) Estimated GFR (Cockcroft-Gault) 8.4 Glucose Level 103mg/dL (70-99) Calcium Level 9.6mg/dL (8.5-10.1) Phosphorus Level 4.8mg/dL (2.6-4.7) Magnesium Level 1.5mg/dL (1.8-2.4) Albumin 2.5g/dL (3.4-5.0) Assessment Assessment Problems Medical Problems: (1) Acute renal failure (ARF) Status: Acute Problems: Plan Plan of Care Problems Medical Problems: (1) Acute renal failure (ARF) Status: Acute DIAZ GUNN MD Oct 13, 2016 10:13
[2016-10-13] MEDS ORDERED: 0.9 % SODIUM CHLORIDE 10 ML DISP.SYRIN. IV PRN ×2 (11:00)
[2016-10-13] MEDS ORDERED: DIALYSIS PATIENT. MC PRN ×2 (11:00)
[2016-10-13] MEDS ORDERED: LIDOCAINE 1% / SOD BICARB 8.4% 20 ML VIAL. IJ ONE (13:15)
--- NOTE | 2016-10-13 13:40 | PDOC ---
Provider Note Provider Note Urology: Patient in IR for bilateral nephrostomy tubes Nurse tells me urine color much improved Coag studies better today. Plan : will follow as to when s[place] can be removed IVA LR DO Oct 13, 2016 13:40
[2016-10-13] MEDS ORDERED: FENTANYL PF 100 MCG/2 ML VIAL. ONE (14:03)
[2016-10-13] MEDS ORDERED: MIDAZOLAM HCL 2 MG/2 ML VIAL. ONE (14:03)
[2016-10-13] MEDS ORDERED: GELATIN SPONGE SIZE 12-7MM SPONGE. ONE (14:44)
[2016-10-13] MEDS ORDERED: FENTANYL PF 100 MCG/2 ML VIAL. IV ONE (15:00)
[2016-10-13] MEDS ORDERED: MIDAZOLAM HCL 2 MG/2 ML VIAL. IV ONE (15:00)
--- NOTE | 2016-10-13 16:42 | PDOC ---
MODERATE SEDATION ASSESSMENT RISKS/ALTERNATIVES Risks/Alternatives Risks and alternatives of this type of sedation and procedure discussed with: RISK/ALTERNATIVES: Patient H & P ON CHART H & P H & P on chart and reviewed for co-morbid conditions and appropriate labs. H&P ON CHART: Yes STATUS PREG STATUS ASSESSED: N/A MEDS/ALLERGIES REVIEWED Meds/Allergies Reviewed Medications and Allergies including time and route of recently administered narcotics and sedatives. MEDS/ALLERGIES REVIEWED: Yes ASA RATING ASA RATING: III AIRWAY ASSESSMENT Airway Assessment Airway patency, oral function limitations, presence of caps, crowns, dentures, partials, and ability to extend neck assessed. AIRWAY ASSESSMENT: Yes MALLAMPATI SCORE MALLAMPATI SCORE: II PRE-SEDATION ASSESSMENT PRE-SEDATION ASSESSMENT: Yes SVEN CANALES MD Oct 13, 2016 16:42
--- NOTE | 2016-10-13 17:06 | PDOC ---
Exam Set Illustrator Set Illustrator Elizabeth Cap Jewel Plate Assembler Cap Jewel Plate Assembler Anya Herron Pre-Procedure Diagnosis Pre-Procedure Diagnosis Very large central RP soft tissue mass, encasing abdominal aorta + proximal CIAs , and producing bilateral hydronephrosis, with renal failure. Coagulopathy. Pradaxa reversed with Praxbind. Elevated INR addressed with FFP. Post-Procedure Diagnosis Post-Procedure Diagnosis Same Procedure Performed Procedure Performed 1. CT guided bx of large RP soft tissue mass---RP fibrosis vs met disease of unknown primary vs lymphoma 2. CT guided bilateral PCN drain placement Type of Anesthesia Type of Anesthesia Local + Mod sedation Estimated Blood Loss EBL: 25 cc Specimens Specimans 3 14G core bx of RP mass---2 in formalin and 1 in cell flow media to pathology. Drain/Tubes Drains/Tubes Bilateral 10F PCN drains to DD Condition of Patient Condition of Patient Stable. Significant arterial bleeding was encountered following RP bx----this was addressed with autologous clot, Gelfoam torpedoes, and embolization coils, all introduced thru the bx guided needle. No continued bleeding was evident clinically or on 60 minute f/u CT images. Disposition Disposition From IR/CT return to ICU. Bilateral PCN tubes to DD---F/u with Dr Griggs. Post bx arterial bleeder is of concern in this patient, although hemostasis was achieved with autologous clot, Gelfoam, and coils introduced thru bx guided needle. Will need to follow VS closely thru night---notify IR for signs of bleeding. Full report to follow. SVEN CANALES MD Oct 13, 2016 17:06
[2016-10-13] MEDS: TAMSULOSIN 0.4 MG CAP.ER.24H. PO SCH (20:36)
[2016-10-13] MEDS: SERTRALINE 50 MG TABLET. PO SCH (20:36)
[2016-10-13] MEDS: EZETIMIBE 10 MG TABLET PO SCH (20:36)
[2016-10-13] MEDS: LOSARTAN POTASSIUM 50 MG TABLET. PO SCH (20:36)
[2016-10-13] MEDS: SIMVASTATIN 40 MG TABLET. PO SCH (20:37)
[2016-10-14] VITALS (17 sets, daily range): BP systolic 103–144; BP diastolic 68–88
--- NOTE | 2016-10-14 00:40 | CONS ---
DATE OF CONSULTATION: 10/13/2016 REQUESTING PHYSICIAN: Dr. Ayala Chung. REASON FOR CONSULTATION: Retroperitoneal mass in a patient has a history of lymphoma, hypercalcemia, bleeding after attempted cystoscopy and stent on 10/12/2016, status post Praxbind one dose on 10/12/2016. HISTORY OF PRESENT ILLNESS: The patient is an 81-year-old gentleman who has a history of melanoma treated by Dermatology several years ago and he had surgical resection. He is being followed by Dermatology for surveillance and a routine lab revealed elevated LDH level. He was then referred to Dr. Ayala Chung who is his primary care physician for further workup. Complete metabolic panel was done and he was noted to be in renal failure with a creatinine of 3.47 on 10/09/2016. He was also noted to have hypercalcemia of 13.5, LDH was 393. He was admitted to [facility] on 10/10/2016 for further evaluation. At the time of admission on 10/10/2016, his potassium was 5.9 with a creatinine of 5.5 and a calcium of 14.4. Nephrology was consulted. Intact PTH level was noted to be normal at 21, serum protein electrophoresis was normal, immunofixation was normal, kappa light chains and lambda light chains were elevated consistent with renal failure. He underwent an ultrasound on 10/10/2016 which revealed hydronephrosis, left greater than right along with a small renal cyst. CT scan of the abdomen and pelvis on 10/11/2016 revealed large soft tissue mass measuring 12.7 cm in width and 7.7 cm in AP dimension at the level of the aortic bifurcation. It was encased in the infrarenal abdominal aorta and the iliac arteries. Retroperitoneal fibrosis versus lymphoma or metastatic disease was in the differential diagnosis. 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 I was asked to see the patient for further evaluation of retroperitoneal mass. On 10/12/2016, the patient underwent cystoscopy and attempted stent placement and fulguration of hemorrhagic prostate by Dr. Arik Griggs. He had about 250 mL of blood loss and hence the stents were not placed. The patient had received Pradaxa on 10/11/2016 and hence he was treated with Praxbind at 4:30 p.m. on 10/12/2016. His urine is now clear and the bleeding has resolved. His INR on 10/12/[address] Johnson called me mentioning in that the patient needs emergent nephrostomy tube placement and since the bleeding had resolved, I agreed to proceed with the placement of the tubes. I also discussed the case in detail with Dr. Ayala Chung. PAST MEDICAL HISTORY: Melanoma, chronic kidney disease with a creatinine of 1.4 at baseline, abdominal aortic aneurysm 3.5 cm, atrial fibrillation for which he takes Pradaxa, benign prostatic hypertrophy, atherosclerotic heart disease, depression. SOCIAL HISTORY: He is a nonsmoker. No alcohol abuse. FAMILY HISTORY: Negative for any primary hematologic disorders of bleeding disorders. REVIEW OF SYSTEMS: A 14-point review of system was performed. Pertinent positives are mentioned in the history of presenting illness. Rest of the system review is negative. The patient also mentions poor appetite and weight loss of about 6-7 pounds in three months. No fevers or night sweats. No nose bleeds or gum bleeding. No hematemesis, melena, hematochezia, no hemoptysis. PHYSICAL EXAMINATION: GENERAL APPEARANCE: The patient is an 81-year-old gentleman who is in no acute cardiorespiratory distress. VITAL SIGNS: Blood pressure 147/86, temperature 98.1. HEENT: Head atraumatic, normocephalic. Eyes: No icterus. NECK: Supple. CHEST: Bilaterally symmetrical. No crepitations or rhonchi heard. HEART: S1, S2 normal. ABDOMEN: Soft, nontender. No hepatosplenomegaly. CENTRAL NERVOUS SYSTEM: No focal neurological deficits. LYMPHATICS: No lymphadenopathy. SKIN: No rashes. PSYCHOLOGIC: Mood and affect are appropriate. MUSCULOSKELETAL: No joint effusions. LABORATORY DATA: On 10/12/2016, PT 39.8, INR 4.4, PTT 127. CBC on 10/13/2016 revealed a WBC of 5.9, hemoglobin 9.4, platelet count 135. Prior CBC on 10/10/2016 revealed a hemoglobin of 11.8. Chemistry panel from this admission on 10/10/2016 revealed normal serum protein electrophoresis, no M-spike, immunofixation does not reveal any monoclonal gammopathy, total protein 5.8, albumin 2.5. PTH normal at 21, IgG 784, IgA 207, IgM 67. [place] lambda light chain ratio is 1.79. Free kappa light chain 49.87, free lambda light chain 27.84. IMPRESSION AND PLAN: 1. Large abdominal mass encasing the infrarenal abdominal aorta measuring 12.7 cm concerning for retroperitoneal fibrosis versus malignancy. I discussed with Dr. Johnson and with Dr. Ayala Chung. I agreed to proceed with CT-guided biopsy of this mass for further diagnostic evaluation. The patient has hypercalcemia, but there are no bone mets noted on the CAT scan. The hypercalcemia could be secondary to Paget's disease versus underlying malignancy. Await further workup. 2. Hematuria/bleeding after procedure on 10/12/2016. He underwent cystoscopy and attempted stent placement which was unsuccessful. He had received Pradaxa on 10/11/2016 and hence he received Praxbind on 10/12/2016 at 4:30 p.m. The bleeding has now resolved and hence it is safe to proceed with a nephrostomy tube as planned. I discussed with Dr. Johnson we would mention that he would need urgent nephrostomy tubes placed in view of bilateral hydronephrosis and significantly worsening creatinine levels. 3. Coagulopathy due to Pradaxa improved after Praxbind infusion on 10/12/2016. 4. Renal failure. Appreciate Nephrology consultation, etiology thought to be due to bilateral hydronephrosis from abdominal mass. 5. Paget's disease. He also has a T6, L2 compression fracture, thought to be due to Paget's disease. 6. Melanoma diagnosed several years ago, being followed by Dermatology. 7. Serum protein electrophoresis and immunofixation is negative. There is no clinical evidence to suggest myeloma. 8. Hypercalcemia could be secondary to Paget's disease versus underlying malignancy. Await further workup. JENNIFER QURESHI MD DR: KIM/miranda JOB#: [id number] / [id number] AYALA Mandel MD PLA[facility]VIEW HOSPITALAlexi
[2016-10-14] MEDS: FENTANYL PF 100 MCG/2 ML VIAL. IV PRN ×4 (01:42→20:58)
[2016-10-14 05:38] LABS: HEMATOCRIT 27.3 % (39.0-53.0); HEMOGLOBIN 9.1 g/dL (13.0-17.5); RED BLOOD COUNT 2.97 x10^6/uL (4.30-5.70); RED CELL DISTRIBUTION WIDTH 14.5 % (11.5-14.5); WHITE BLOOD COUNT 5.1 x10^3/uL (4.0-11.0)
[2016-10-14 06:05] LABS: MAGNESIUM 1.3 mg/dL (1.8-2.4)
[2016-10-14] MEDS: CARVEDILOL 12.5 MG TABLET PO SCH ×4 (08:00→17:52)
[2016-10-14] MEDS: MULTIVITAMIN with MINERAL TABLET. PO SCH ×2 (08:28→09:00)
[2016-10-14] MEDS: CHOLECALCIFEROL (VITAMIN D3) 5,000 UNIT CAPSULE PO SCH ×2 (08:28→09:00)
[2016-10-14] MEDS: FENOFIBRATE,MICRONIZED 134 MG CAPSULE PO SCH ×2 (08:28→09:00)
[2016-10-14 10:11] LABS: ALBUMIN 2.6 g/dL (3.4-5.0); CALCIUM 9.7 mg/dL (8.5-10.1); CREATININE 2.9 mg/dL (0.7-1.3); GFR 20.9; PHOSPHORUS 3.2 mg/dL (2.6-4.7); POTASSIUM 3.8 mmol/L (3.5-5.1)
--- NOTE | 2016-10-14 10:25 | PDOC ---
Provider Note Provider Note IR Note: Day #1 S/P retroperitoneal mass bx + bilateral PCN tube insertion. Afebrile. VSS. Bilateral PCN dressings + bx site dressing clean and dry. Persistent gross hematuria via PCN drains, but Hgb stable. PCN output much greater right than left---left kidney is atrophic relative to right. Removed stopcocks from PCN drain systems--Rx continued flushing with 10cc sterile NS q 8h. Creatinine down to 2.9 this AM. Stable post bilateral PCN tube insertion----If indicated, IR could attempt antegrade conversion to internal ureteral stents next week---will discuss with Urology. Stable post RP mass bx---results pending---Dr Ross consultation noted. Continue current management per Dr Chung, Urology, Renal. SVEN CANALES MD Oct 14, 2016 10:25
--- NOTE | 2016-10-14 11:30 | RAD ---
CT-guided biopsy of large retroperitoneal soft tissue mass CT-guided insertion of bilateral percutaneous nephrostomy drains Indication: Very large infrarenal central retroperitoneal soft tissue mass, encasing aorta and proximal common iliac arteries, and producing bilateral ureteral obstruction, with renal failure. Attempted retrograde ureteral stent placement by urology was unsuccessful. CT-guided biopsy of the large retroperitoneal soft tissue mass and bilateral percutaneous nephrostomy drain insertion were considered indicated. Anesthesia: 123 minutes moderate sedation was provided utilizing a total of 2 mg Versed and 100 mcg fentanyl, IV. The patient was appropriately monitored by a qualified independent observer throughout the time of moderate sedation. Antibiotic: The patient received 250 mg Levaquin IV within one hour of the procedure start time. Levaquin was considered superior to cephalosporin for the planned bilateral percutaneous nephrostomy tube insertion procedure. Consent: The procedure was explained in its entirety to the patient and/or the patient's designated direct marketing representative by a member of the treatment team. This included a discussion of risks and benefits and acceptable alternatives to the procedure, as well as expected consequences of no treatment at all. Discussion of risks included, but was not limited to, those that are most frequent and those that are rare, but possibly severe or life-threatening, as well as the possibility of unforeseen complications. Note: Significant bleeding was encountered during cystoscopy and attempted retrograde stent placement by urology. Therefore, Pradaxa was reversed with Praxbind. His elevated INR was addressed with fresh frozen plasma. Procedure: Informed consent was obtained from the patient. Following correction of coagulopathy, he was placed prone on the CT scanner. Moderate sedation was provided with IV Versed and fentanyl. 250 mg Levaquin was given IV, prophylactically. Retroperitoneal mass biopsy: Preliminary noncontrast CT images confirmed the previously described, very large infrarenal central retroperitoneal soft tissue mass, encasing abdominal aorta and proximal iliac arteries, and producing bilateral hydronephrosis. A left posterior skin site suitable for CT-guided biopsy was selected and marked. That area was prepped and draped in the usual sterile fashion. Using aseptic technique, local anesthesia, and CT guidance, a 13-gauge biopsy guide needle was successfully advanced to left posterior margin of the large retroperitoneal soft tissue mass. A total of 3 14-gauge core biopsy samples were obtained. 2 biopsy samples were submitted in formalin to pathology. One sample was submitted in cell flow holding media to pathology. Following biopsy, brisk arterial bleeding was encountered through the biopsy guide needle, during slow needle removal. Hemostasis was eventually achieved utilizing autologous clot, Gelfoam torpedoes, and two 6 mm x 14 cm Pernell coils and three 8 mm x 14 cm Pernell coils, all introduced through the biopsy guide needle, which was then successfully removed. A sterile dressing was applied. Completion CT images revealed no significant postbiopsy retroperitoneal bleeding. Bilateral percutaneous nephrostomy tube insertion: Following CT-guided retroperitoneal mass biopsy, the patient was kept prone on the CT scanner. Preliminary noncontrast CT images confirmed bilateral hydronephrosis. Those images also revealed significant relative atrophy of left kidney when compared to contralateral right. Left side: A left posterolateral skin site suitable for CT-guided left percutaneous nephrostomy tube insertion was selected and marked. That area was prepped and draped in the usual sterile fashion. Using aseptic technique, local anesthesia, and CT guidance, a 19-gauge needle was successfully introduced into a dilated mid region left renal calyx. This needle was then removed over a 0.035 inch guidewire. The percutaneous tract was then dilated and a 10 Turkmen locking pigtail percutaneous nephrostomy drain was easily introduced, and was coiled within left renal pelvis. Completion CT images confirmed satisfactory position of the nephrostomy drain, with only very minimal perinephric stranding. This percutaneous nephrostomy tube was then connected to dependent drainage, and was secured at the skin exit site utilizing suture and sterile dressing. Patient tolerated the procedure well without apparent complication. Right side: A right posterolateral skin site suitable for CT-guided right percutaneous nephrostomy tube insertion was selected and marked. That area was prepped and draped in the usual sterile fashion. Using aseptic technique, local anesthesia, and CT guidance, a 19-gauge needle was successfully introduced into a dilated mid region left renal calyx. The needle was then removed over a 0.035 inch guidewire. The percutaneous tract was dilated and a 10 Turkmen locking pigtail nephrostomy drain was easily introduced, and was coiled within right renal pelvis. Completion CT images confirmed satisfactory position of the nephrostomy tube, with only minimal perinephric soft tissue stranding. The percutaneous nephrostomy tube was then connected to dependent drainage, and was secured at the skin exit site utilizing suture and sterile dressing. Patient tolerated the procedure well without apparent complication. Impression: 1. Successful CT-guided biopsy of large central retroperitoneal soft tissue mass, as described. Brisk postbiopsy bleeding was encountered through the biopsy guide needle. Hemostasis was successfully achieved utilizing autologous clot, Gelfoam, and embolization coils introduced through the biopsy guide needle. 2. Successful, uneventful CT-guided insertion of bilateral 10 Turkmen locking pigtail percutaneous nephrostomy drains, as described. PQRS Compliance Statement: One or more of the following individualized dose reduction techniques was utilized for this procedure: 1. Automated exposure control. 2. Adjustment of MA and/or KV according to patient size. 3. Iterative reconstruction technique.
--- NOTE | 2016-10-14 11:51 | PDOC ---
SUBJECTIVE ROS YURI, Hypercalcemia Doing and feeling OK overall CVS: no Orthopnea, n CP RESP: maya SOB, no ZEPEDA GI: no Nausea, no Vomiting : no Dysuria, no Urgency - + Hematuria from PCNs OBJECTIVE Vital Signs Vital Signs Date Time Temp Pulse Resp B/P Pulse Ox O2 Delivery O2 Flow Rate FiO2 10/14/16 11:00 98.1 86 16 111/73 98 Nasal Cannula 2.0 98.1 I & 0 Intake and Output 10/14/16 07:00 Intake Total 779 ml Output Total 52764 ml Balance -40424 ml Intake Oral 150 ml Blood Product IV Normal Saline Flush 609 ml Other 20 ml Drainage Total 1520 ml Other 86857 ml was on CBI PHYSICAL EXAM Physical Exam General Appearance: Awake Alert Oriented x 3 In no Distress Eyes: VIsion Unchanged Conjunctiva Normal EN: No EN Drainage Mucous Memb. moist Neck: no JVD no JVP Supple no Thyromegaly CVS: S1 S2 soft Murmur No Gallop No Rub no Edema Resp: no Rales no Rhonchi no Acc. Muscle use GI: BS +ve NO Bruit Non Tender Non Distended : no CVA tenderness; (x around PCNs) no Suprapubic Tenderness ASSESSMENT/PLAN Assessment/Plan ARF: Creat better after HD x 2 and PCNs. watch rate of rise of same. Hydronephrosis - URO eval appreciated, Ureteral Stenting done - still bloody ^Krishna - better currently (Paraprotein rule out) Low Mag - Replace per prn order HypoAlbuminemia - Evall for PEPs in setting of YURI, ^ Krishna Dehydration - Probably resolved now Oliguria - unable to asses UO while on CBI - watch via PCns. Anemia: defer to Dr Ross who is now on the case HTN: Current BP meds reviewed. See orders for changes. COMMENT/RELEVANT DATA Meds Current Medications Medications (Trade) Dose Ordered Sig/Selena Start Time Stop Time Status Last Admin Dose Admin Apixaban (Eliquis) 2.5 mg BID 10/12/16 21:00 10/12/16 21:00 DC Aspirin (Children'S Aspirin) 81 mg DAILY08 10/10/16 14:00 10/12/16 19:37 DC 10/12/16 08:47 81 MG Calcitonin [place] (Miacalcin) 400 unit BID 10/10/16 21:00 10/12/16 23:52 DC 10/12/16 08:51 400 UNIT Carvedilol (Coreg) 25 mg BIDWMEALS 10/10/16 17:00 10/14/16 08:28 25 MG Dabigatran (Pradaxa) 75 mg BID 10/11/16 09:00 10/12/16 14:56 DC 10/11/16 10:03 75 MG Dexamethasone Sodium Phosphate (Decadron) 20 mg STK-MED ONCE 10/12/16 12:25 10/12/16 12:26 DC Diphenhydramine HCl (Benadryl) 25 mg 1X PRN PRN 10/12/16 18:00 10/13/16 13:06 DC EZETIMIBE (Zetia) 10 mg HS 10/10/16 21:00 10/13/16 20:36 10 MG Fenofibrate (Lofibra) 134 mg DAILY 10/10/16 14:00 10/14/16 08:28 134 MG Fentanyl Citrate (Fentanyl 2ml Vial) 50 mcg PRN Q2HR PRN 10/14/16 01:30 10/14/16 09:04 50 MCG Gelatin (Gelfoam Size 12-7mm) 1 each STK-MED ONCE 10/13/16 14:44 10/13/16 14:45 DC Heparin Sodium (Porcine) 2,400 unit 1X ONCE 10/12/16 16:30 10/12/16 16:31 DC 10/12/16 16:27 2,400 UNIT Heparin Sodium/ Sodium Chloride 6 unit 1X ONCE 10/12/16 16:30 10/12/16 16:31 DC 10/12/16 16:27 6 UNIT Hydromorphone HCl (Dilaudid) 0.5 mg PRN Q10MIN PRN 10/12/16 09:30 10/13/16 09:29 DC Idarucizumab (Praxbind) 5 gm 1X ONCE 10/12/16 16:30 10/12/16 16:31 DC 10/12/16 16:48 5 GM Info (Anti-Coagulation Monitoring By Pharmacy) 1 each PRN DAILY PRN 10/10/16 14:45 10/13/16 09:44 DC 10/11/16 08:28 1 EACH Info (PHARMACY MONITORING -- do not chart) 1 each PRN DAILY PRN 10/13/16 11:00 10/13/16 11:05 DC Iohexol 50 ml 50 ml STK-MED ONCE 10/12/16 11:38 10/12/16 11:39 DC Lactated Ringer's (Iv Lactated Ringers) 1,000 ml @ 0 mls/hr Q0M 10/12/16 09:29 10/12/16 21:28 DC 10/12/16 12:43 100 MLS/HR Levofloxacin/ Dextrose (LEVAQUIN 250mg PREMIX) 50 ml @ 100 mls/hr 1X ONCE 10/13/16 13:30 10/13/16 13:59 DC 10/13/16 16:25 100 MLS/HR Lidocaine HCl 20 ml STK-MED ONCE 10/12/16 15:40 10/12/16 15:41 DC Lidocaine/ Epinephrine (Xylocaine 1%-Epi 1:100,000) 2 ml 1X ONCE 10/12/16 16:30 10/12/16 16:31 DC 10/12/16 16:28 2 ML Lidocaine/Sodium Bicarbonate 20 ml 20 ml 1X ONCE 10/13/16 13:15 10/13/16 13:16 DC 10/13/16 16:23 28 ML Losartan Potassium (Cozaar) 100 mg QHS 10/10/16 21:00 10/13/16 20:36 100 MG Magnesium Sulfate/ Dextrose (Magnesium Sulfate PREMIX 2GM) 50 ml @ 25 mls/hr PRN DAILY PRN 10/10/16 13:30 Midazolam HCl (Versed) 2 mg 1X ONCE 10/13/16 15:00 10/13/16 15:01 DC 10/13/16 16:25 2 MG Morphine Sulfate 1 mg 1 mg PRN Q10MIN PRN 10/12/16 09:30 10/13/16 09:29 DC Multivitamins/ Calcium (Thera M Plus) 1 tab DAILY 10/10/16 14:00 10/14/16 08:28 1 TAB Non-Formulary Medication 20 meq DAILYWSUP 10/10/16 17:00 UNV Ondansetron HCl (Zofran) 4 mg STK-MED ONCE 10/12/16 12:25 10/12/16 12:26 DC Phenylephrine HCl 1 mg STK-MED ONCE 10/12/16 13:59 10/12/16 14:00 DC Potassium Chloride (Klor-Con) 20 meq DAILYWSUP 10/10/16 17:00 10/10/16 17:00 DC Prochlorperazine Edisylate (Compazine) 5 mg PACU PRN PRN 10/12/16 09:30 10/13/16 09:29 DC Propofol (Diprivan) 20 ml @ As Directed STK-MED ONCE 10/12/16 12:25 10/12/16 12:26 DC Sertraline HCl (Zoloft) 50 mg HS 10/10/16 21:00 10/13/16 20:36 50 MG Simvastatin (Zocor) 80 mg QHS 10/10/16 21:00 10/13/16 20:37 80 MG Sodium Polystyrene Sulfonate (Kayexalate) 45 gm 1X ONCE 10/10/16 13:30 10/10/16 13:44 DC 10/10/16 15:07 45 GM Sodium Chloride (Iv Sodium Chloride 0.9% 1000ml Bag) 1,000 ml @ 400 mls/hr Q2H30M PRN 10/12/16 17:48 10/13/16 05:47 DC Sodium Chloride (Normal Saline Flush) 10 ml 1X PRN PRN 10/13/16 11:00 10/13/16 18:00 DC Sodium Chloride 10 ml 10 ml 1X PRN PRN 10/12/16 18:00 10/13/16 13:06 DC Spironolactone (Aldactone) 25 mg DAILY 10/10/16 14:00 10/10/16 14:17 DC Tamsulosin HCl (Flomax) 0.4 mg HS 10/10/16 21:00 10/13/16 20:36 0.4 MG Vitamin D (Vitamin D3) 5,000 unit DAILY 10/10/16 14:00 10/14/16 08:28 5,000 UNIT Lab Laboratory Tests Test 10/14/16 05:00 White Blood Count 5.1x10^3/uL (4.0-11.0) Red Blood Count 2.97x10^6/uL (4.30-5.70) Hemoglobin 9.1g/dL (13.0-17.5) Hematocrit 27.3% (39.0-53.0) Mean Corpuscular Volume 92fL (79-100) Mean Corpuscular Hemoglobin 31pg (25-35) Mean Corpuscular Hemoglobin Concent 33g/dL (31-37) Red Cell Distribution Width 14.5% (11.5-14.5) Platelet Count 134x10^3/uL (140-400) Sodium Level 140mmol/L (136-145) Potassium Level 3.8mmol/L (3.5-5.1) Chloride Level 103mmol/L (98-107) Carbon Dioxide Level 30mmol/L (21-32) Anion Gap 7 (6-14) Blood Urea Nitrogen 26mg/dL (8-26) Creatinine 2.9mg/dL (0.7-1.3) Estimated GFR (Cockcroft-Gault) 20.9 Glucose Level 89mg/dL (70-99) Calcium Level 9.7mg/dL (8.5-10.1) Phosphorus Level 3.2mg/dL (2.6-4.7) Magnesium Level 1.3mg/dL (1.8-2.4) Albumin 2.6g/dL (3.4-5.0) DIAZ GUNN MD Oct 14, 2016 11:51
--- NOTE | 2016-10-14 17:24 | PDOC ---
GENERAL General: vss and afebrile. awake and alert and eating lunch.O2 at 2L/NC. I&O not accurate due to bladder irrigation. Hb 9.1. Creatinine decreased to 2.9 but received dialysis in addition to placement of bilateral percutaneous nephrostomy tubes. Myeloma ruled out. Calcium back to normal. 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 Chest clear and still in a- fib. No anticoagulation at present due to bleeding yesterday. Continue same and await path. Problems: VITAL SIGNS Vital Signs: Vital Signs Date Time Temp Pulse Resp B/P Pulse Ox O2 Delivery O2 Flow Rate FiO2 10/14/16 13:00 100 24 125/83 98 Nasal Cannula 2.0 10/14/16 11:00 98.1 98.1 I & O I & O Intake and Output 10/14/16 07:00 Intake Total 779 ml Output Total 42508 ml Balance -91013 ml Intake Oral 150 ml Blood Product IV Normal Saline Flush 609 ml Other 20 ml Drainage Total 1520 ml Other 02322 ml ALLERGIES Allergies: Allergies Coded Allergies Type Severity Reaction Last Updated Verified No Known Drug Allergies 10/10/16 No MEDS Medications: Current Medications Medications (Trade) Dose Ordered Sig/Selena Start Time Stop Time Status Last Admin Dose Admin Apixaban (Eliquis) 2.5 mg BID 10/12/16 21:00 10/12/16 21:00 DC Aspirin (Children'S Aspirin) 81 mg DAILY08 10/10/16 14:00 10/12/16 19:37 DC 10/12/16 08:47 81 MG Calcitonin [place] (Miacalcin) 400 unit BID 10/10/16 21:00 10/12/16 23:52 DC 10/12/16 08:51 400 UNIT Carvedilol (Coreg) 25 mg BIDWMEALS 10/10/16 17:00 10/14/16 08:28 25 MG Dabigatran (Pradaxa) 75 mg BID 10/11/16 09:00 10/12/16 14:56 DC 10/11/16 10:03 75 MG Dexamethasone Sodium Phosphate (Decadron) 20 mg STK-MED ONCE 10/12/16 12:25 10/12/16 12:26 DC Diphenhydramine HCl (Benadryl) 25 mg 1X PRN PRN 10/12/16 18:00 10/13/16 13:06 DC EZETIMIBE (Zetia) 10 mg HS 10/10/16 21:00 10/13/16 20:36 10 MG Fenofibrate (Lofibra) 134 mg DAILY 10/10/16 14:00 10/14/16 08:28 134 MG Fentanyl Citrate (Fentanyl 2ml Vial) 50 mcg PRN Q2HR PRN 10/14/16 01:30 10/14/16 09:04 50 MCG Gelatin (Gelfoam Size 12-7mm) 1 each STK-MED ONCE 10/13/16 14:44 10/13/16 14:45 DC Heparin Sodium (Porcine) 2,400 unit 1X ONCE 10/12/16 16:30 10/12/16 16:31 DC 10/12/16 16:27 2,400 UNIT Heparin Sodium/ Sodium Chloride 6 unit 1X ONCE 10/12/16 16:30 10/12/16 16:31 DC 10/12/16 16:27 6 UNIT Hydromorphone HCl (Dilaudid) 0.5 mg PRN Q10MIN PRN 10/12/16 09:30 10/13/16 09:29 DC Idarucizumab (Praxbind) 5 gm 1X ONCE 10/12/16 16:30 10/12/16 16:31 DC 10/12/16 16:48 5 GM Info (Anti-Coagulation Monitoring By Pharmacy) 1 each PRN DAILY PRN 10/10/16 14:45 10/13/16 09:44 DC 10/11/16 08:28 1 EACH Info (PHARMACY MONITORING -- do not chart) 1 each PRN DAILY PRN 10/13/16 11:00 10/13/16 11:05 DC Iohexol 50 ml 50 ml STK-MED ONCE 10/12/16 11:38 10/12/16 11:39 DC Lactated Ringer's (Iv Lactated Ringers) 1,000 ml @ 0 mls/hr Q0M 10/12/16 09:29 10/12/16 21:28 DC 10/12/16 12:43 100 MLS/HR Levofloxacin/ Dextrose (LEVAQUIN 250mg PREMIX) 50 ml @ 100 mls/hr 1X ONCE 10/13/16 13:30 10/13/16 13:59 DC 10/13/16 16:25 100 MLS/HR Lidocaine HCl 20 ml STK-MED ONCE 10/12/16 15:40 10/12/16 15:41 DC Lidocaine/ Epinephrine (Xylocaine 1%-Epi 1:100,000) 2 ml 1X ONCE 10/12/16 16:30 10/12/16 16:31 DC 10/12/16 16:28 2 ML Lidocaine/Sodium Bicarbonate 20 ml 20 ml 1X ONCE 10/13/16 13:15 10/13/16 13:16 DC 10/13/16 16:23 28 ML Losartan Potassium (Cozaar) 100 mg QHS 10/10/16 21:00 10/13/16 20:36 100 MG Magnesium Sulfate/ Dextrose (Magnesium Sulfate PREMIX 2GM) 50 ml @ 25 mls/hr PRN DAILY PRN 10/10/16 13:30 10/14/16 13:04 25 MLS/HR Midazolam HCl (Versed) 2 mg 1X ONCE 10/13/16 15:00 10/13/16 15:01 DC 10/13/16 16:25 2 MG Morphine Sulfate 1 mg 1 mg PRN Q10MIN PRN 10/12/16 09:30 10/13/16 09:29 DC Multivitamins/ Calcium (Thera M Plus) 1 tab DAILY 10/10/16 14:00 10/14/16 08:28 1 TAB Non-Formulary Medication 20 meq DAILYWSUP 10/10/16 17:00 UNV Ondansetron HCl (Zofran) 4 mg STK-MED ONCE 10/12/16 12:25 10/12/16 12:26 DC Phenylephrine HCl 1 mg STK-MED ONCE 10/12/16 13:59 10/12/16 14:00 DC Potassium Chloride (Klor-Con) 20 meq DAILYWSUP 10/10/16 17:00 10/10/16 17:00 DC Prochlorperazine Edisylate (Compazine) 5 mg PACU PRN PRN 10/12/16 09:30 10/13/16 09:29 DC Propofol (Diprivan) 20 ml @ As Directed STK-MED ONCE 10/12/16 12:25 10/12/16 12:26 DC Sertraline HCl (Zoloft) 50 mg HS 10/10/16 21:00 10/13/16 20:36 50 MG Simvastatin (Zocor) 80 mg QHS 10/10/16 21:00 10/13/16 20:37 80 MG Sodium Polystyrene Sulfonate (Kayexalate) 45 gm 1X ONCE 10/10/16 13:30 10/10/16 13:44 DC 10/10/16 15:07 45 GM Sodium Chloride (Iv Sodium Chloride 0.9% 1000ml Bag) 1,000 ml @ 400 mls/hr Q2H30M PRN 10/12/16 17:48 10/13/16 05:47 DC Sodium Chloride (Normal Saline Flush) 10 ml 1X PRN PRN 10/13/16 11:00 10/13/16 18:00 DC Sodium Chloride 10 ml 10 ml 1X PRN PRN 10/12/16 18:00 10/13/16 13:06 DC Spironolactone (Aldactone) 25 mg DAILY 10/10/16 14:00 10/10/16 14:17 DC Tamsulosin HCl (Flomax) 0.4 mg HS 10/10/16 21:00 10/13/16 20:36 0.4 MG Vitamin D (Vitamin D3) 5,000 unit DAILY 10/10/16 14:00 10/14/16 08:28 5,000 UNIT LAB Lab: Laboratory Tests Test 10/14/16 05:00 White Blood Count 5.1x10^3/uL (4.0-11.0) Red Blood Count 2.97x10^6/uL (4.30-5.70) Hemoglobin 9.1g/dL (13.0-17.5) Hematocrit 27.3% (39.0-53.0) Mean Corpuscular Volume 92fL (79-100) Mean Corpuscular Hemoglobin 31pg (25-35) Mean Corpuscular Hemoglobin Concent 33g/dL (31-37) Red Cell Distribution Width 14.5% (11.5-14.5) Platelet Count 134x10^3/uL (140-400) Sodium Level 140mmol/L (136-145) Potassium Level 3.8mmol/L (3.5-5.1) Chloride Level 103mmol/L (98-107) Carbon Dioxide Level 30mmol/L (21-32) Anion Gap 7 (6-14) Blood Urea Nitrogen 26mg/dL (8-26) Creatinine 2.9mg/dL (0.7-1.3) Estimated GFR (Cockcroft-Gault) 20.9 Glucose Level 89mg/dL (70-99) Calcium Level 9.7mg/dL (8.5-10.1) Phosphorus Level 3.2mg/dL (2.6-4.7) Magnesium Level 1.3mg/dL (1.8-2.4) Albumin 2.6g/dL (3.4-5.0) AYALA LYMAN MD Oct 14, 2016 17:24
[2016-10-14] MEDS: EZETIMIBE 10 MG TABLET PO SCH (20:56)
[2016-10-14] MEDS: SIMVASTATIN 40 MG TABLET. PO SCH (20:56)
[2016-10-14] MEDS: TAMSULOSIN 0.4 MG CAP.ER.24H. PO SCH (20:56)
[2016-10-14] MEDS: SERTRALINE 50 MG TABLET. PO SCH (20:56)
[2016-10-14] MEDS: LOSARTAN POTASSIUM 50 MG TABLET. PO SCH (20:57)
--- NOTE | 2016-10-14 22:58 | PN ---
DATE: 10/14/2016 SUBJECTIVE: Followup coagulopathy due to Pradaxa. The patient, this morning, is lying in bed comfortably. He has several visitors at bedside. No bruising, no bleeding. OBJECTIVE: GENERAL: Reveals a comfortable appearing elderly gentleman. VITAL SIGNS: Temperature 98.1, pulse 86, respiratory rate 16, blood pressure 111/73, satting 98% on 2 liters of oxygen by nasal cannula. SKIN: Mildly pale, otherwise unremarkable. RESPIRATORY: Respiration is nonlabored. ABDOMEN: Soft. LABORATORY DATA: This morning shows stable hemoglobin of 9.1, total white count of 5.1, platelet 134. INR from yesterday was 1.9, PTT was 71. Chemistry this morning shows creatinine of 2.9. Creatinine yesterday was 6.4. ASSESSMENT: Coagulopathy due to medication, improved following Praxbind on 10/12/2016. No current bleeding, hemoglobin stable. PLAN: No intervention today, continue monitoring, a.m. CBC. FADI AN MD DR: AGATHA/nts JOB#: [id number] / [id number]
[2016-10-15 03:48] VITALS: BP 134/86
[2016-10-15 05:46] LABS: HEP B SURFACE ABDY Non Reactive (.)
[2016-10-15 06:28] LABS: BASO % 0 % (0-3); EOS % 2 % (0-3); HEMATOCRIT 27.4 % (39.0-53.0); HEMOGLOBIN 9.4 g/dL (13.0-17.5); LYMPH # 0.4 x10^3/uL (1.0-4.8); LYMPH % 8 % (24-48); MEAN CORPUSCULAR HEMOGLOBIN 31 pg (25-35); MEAN CORPUSCULAR HGB CONC 34 g/dL (31-37); MEAN CORPUSCULAR VOLUME 90 fL (79-100); MONO % 12 % (0-9); NEUT % 78 % (31-73); PLATELET COUNT 132 x10^3/uL (140-400); RED BLOOD COUNT 3.05 x10^6/uL (4.30-5.70); RED CELL DISTRIBUTION WIDTH 14.3 % (11.5-14.5)
[2016-10-15 06:41] LABS: ALBUMIN 2.4 g/dL (3.4-5.0); CALCIUM 10.2 mg/dL (8.5-10.1); GFR 32.1; MAGNESIUM 1.6 mg/dL (1.8-2.4); PHOSPHORUS 3.1 mg/dL (2.6-4.7); PHOSPHORUS 3.2 mg/dL (2.6-4.7); POTASSIUM 3.5 mmol/L (3.5-5.1)
[2016-10-15 07:00] VITALS: BP 141/88
[2016-10-15] MEDS: FENOFIBRATE,MICRONIZED 134 MG CAPSULE PO SCH (08:38)
[2016-10-15] MEDS: CHOLECALCIFEROL (VITAMIN D3) 5,000 UNIT CAPSULE PO SCH (08:38)
[2016-10-15] MEDS: CARVEDILOL 12.5 MG TABLET PO SCH ×2 (08:38→17:38)
[2016-10-15] MEDS: MULTIVITAMIN with MINERAL TABLET. PO SCH (08:39)
--- NOTE | 2016-10-15 10:45 | PDOC ---
Provider Note Provider Note UROLOGY: urine per sutherland clear, gross hematuria has resolved Plan: suther[place] catheter removed. IVA LR DO Oct 15, 2016 10:45
[2016-10-15 11:00] VITALS: BP 104/66
--- NOTE | 2016-10-15 12:52 | PDOC ---
SUBJECTIVE ROS YURI DOing and feeling much better overall CVS: no Orthopnea, no CP RESP: no SOB, no ZEPEDA GI: no Nausea, no Vomiting : no Dysuria, no Urgency; Hematuria is better too now OBJECTIVE Vital Signs Vital Signs Date Time Temp Pulse Resp B/P Pulse Ox O2 Delivery O2 Flow Rate FiO2 10/15/16 11:00 97.7 68 20 104/66 92 Room Air 97.7 10/14/16 18:10 2.0 I & 0 Intake and Output 10/15/16 07:00 Intake Total 460 ml Output Total 2090 ml Balance -1630 ml Intake Oral 360 ml IV Total 100 ml Output Urine Total 700 ml Drainage Total 1390 ml PHYSICAL EXAM Physical Exam General Appearance: Awake Alert Oriented x 3 In no Distress Eyes: VIsion Unchanged Conjunctiva Normal EN: No EN Drainage Mucous Memb. moist Neck: no JVD no JVP Supple no Thyromegaly CVS: S1 S2 soft Murmur No Gallop No Rub no Edema Resp: no Rales no Rhonchi no Acc. Muscle use GI: BS +ve NO Bruit Non Tender Non Distended : no CVA tenderness; (x around PCNs) no Suprapubic Tenderness ASSESSMENT/PLAN Assessment/Plan ARF: Creat better after HD x 2 and PCNs. actually trending down with PCNs Hydronephrosis - URO eval appreciated, Ureteral Stenting done ^Krishna - was better (Paraprotein ruled out) - suspect due to Underlying Mass/ ? Lymphoma Low Mag - Replace per prn order Hypoalbuminemia - suspect due to Poor PO intake Anemia: defer to Dr Ross who is now on the case HTN: Current BP meds reviewed. See orders for changes. COMMENT/RELEVANT DATA Meds Current Medications Medications (Trade) Dose Ordered Sig/Selena Start Time Stop Time Status Last Admin Dose Admin Apixaban (Eliquis) 2.5 mg BID 10/12/16 21:00 10/12/16 21:00 DC Aspirin (Children'S Aspirin) 81 mg DAILY08 10/10/16 14:00 10/12/16 19:37 DC 10/12/16 08:47 81 MG Calcitonin [place] (Miacalcin) 400 unit BID 10/10/16 21:00 10/12/16 23:52 DC 10/12/16 08:51 400 UNIT Carvedilol (Coreg) 25 mg BIDWMEALS 10/10/16 17:00 2/5/17 08:38 25 MG Dabigatran (Pradaxa) 75 mg BID 10/11/16 09:00 10/12/16 14:56 DC 10/11/16 10:03 75 MG Dexamethasone Sodium Phosphate (Decadron) 20 mg STK-MED ONCE 10/12/16 12:25 10/12/16 12:26 DC Diphenhydramine HCl (Benadryl) 25 mg 1X PRN PRN 10/12/16 18:00 10/13/16 13:06 DC EZETIMIBE (Zetia) 10 mg HS 10/10/16 21:00 10/14/16 20:56 10 MG Fenofibrate (Lofibra) 134 mg DAILY 10/10/16 14:00 10/15/16 08:38 134 MG Fentanyl Citrate (Fentanyl 2ml Vial) 50 mcg PRN Q2HR PRN 10/14/16 01:30 10/14/16 20:58 50 MCG Gelatin (Gelfoam Size 12-7mm) 1 each STK-MED ONCE 10/13/16 14:44 10/13/16 14:45 DC Heparin Sodium (Porcine) 2,400 unit 1X ONCE 10/12/16 16:30 10/12/16 16:31 DC 10/12/16 16:27 2,400 UNIT Heparin Sodium/ Sodium Chloride 6 unit 1X ONCE 10/12/16 16:30 10/12/16 16:31 DC 10/12/16 16:27 6 UNIT Hydromorphone HCl (Dilaudid) 0.5 mg PRN Q10MIN PRN 10/12/16 09:30 10/13/16 09:29 DC Idarucizumab (Praxbind) 5 gm 1X ONCE 10/12/16 16:30 10/12/16 16:31 DC 10/12/16 16:48 5 GM Info (Anti-Coagulation Monitoring By Pharmacy) 1 each PRN DAILY PRN 10/10/16 14:45 10/13/16 09:44 DC 10/11/16 08:28 1 EACH Info (PHARMACY MONITORING -- do not chart) 1 each PRN DAILY PRN 10/13/16 11:00 10/13/16 11:05 DC Iohexol 50 ml 50 ml STK-MED ONCE 10/12/16 11:38 10/12/16 11:39 DC Lactated Ringer's (Iv Lactated Ringers) 1,000 ml @ 0 mls/hr Q0M 10/12/16 09:29 10/12/16 21:28 DC 10/12/16 12:43 100 MLS/HR Levofloxacin/ Dextrose (LEVAQUIN 250mg PREMIX) 50 ml @ 100 mls/hr 1X ONCE 10/13/16 13:30 10/13/16 13:59 DC 10/13/16 16:25 100 MLS/HR Lidocaine HCl 20 ml STK-MED ONCE 10/12/16 15:40 10/12/16 15:41 DC Lidocaine/ Epinephrine (Xylocaine 1%-Epi 1:100,000) 2 ml 1X ONCE 10/12/16 16:30 10/12/16 16:31 DC 10/12/16 16:28 2 ML Lidocaine/Sodium Bicarbonate 20 ml 20 ml 1X ONCE 10/13/16 13:15 10/13/16 13:16 DC 10/13/16 16:23 28 ML Losartan Potassium (Cozaar) 100 mg QHS 10/10/16 21:00 10/13/16 20:36 100 MG Magnesium Sulfate/ Dextrose (Magnesium Sulfate PREMIX 2GM) 50 ml @ 25 mls/hr PRN DAILY PRN 10/10/16 13:30 10/14/16 13:04 25 MLS/HR Midazolam HCl (Versed) 2 mg 1X ONCE 10/13/16 15:00 10/13/16 15:01 DC 10/13/16 16:25 2 MG Morphine Sulfate 1 mg 1 mg PRN Q10MIN PRN 10/12/16 09:30 10/13/16 09:29 DC Multivitamins/ Calcium (Thera M Plus) 1 tab DAILY 10/10/16 14:00 10/15/16 08:39 1 TAB Non-Formulary Medication 20 meq DAILYWSUP 10/10/16 17:00 UNV Ondansetron HCl (Zofran) 4 mg STK-MED ONCE 10/12/16 12:25 10/12/16 12:26 DC Phenylephrine HCl 1 mg STK-MED ONCE 10/12/16 13:59 10/12/16 14:00 DC Potassium Chloride (Klor-Con) 20 meq DAILYWSUP 10/10/16 17:00 10/10/16 17:00 DC Prochlorperazine Edisylate (Compazine) 5 mg PACU PRN PRN 10/12/16 09:30 10/13/16 09:29 DC Propofol (Diprivan) 20 ml @ As Directed STK-MED ONCE 10/12/16 12:25 10/12/16 12:26 DC Sertraline HCl (Zoloft) 50 mg HS 10/10/16 21:00 10/14/16 20:56 50 MG Simvastatin (Zocor) 80 mg QHS 10/10/16 21:00 10/14/16 20:56 80 MG Sodium Polystyrene Sulfonate (Kayexalate) 45 gm 1X ONCE 10/10/16 13:30 10/10/16 13:44 DC 10/10/16 15:07 45 GM Sodium Chloride (Iv Sodium Chloride 0.9% 1000ml Bag) 1,000 ml @ 400 mls/hr Q2H30M PRN 10/12/16 17:48 10/13/16 05:47 DC Sodium Chloride (Normal Saline Flush) 10 ml 1X PRN PRN 10/13/16 11:00 10/13/16 18:00 DC Sodium Chloride 10 ml 10 ml 1X PRN PRN 10/12/16 18:00 10/13/16 13:06 DC Spironolactone (Aldactone) 25 mg DAILY 10/10/16 14:00 10/10/16 14:17 DC Tamsulosin HCl (Flomax) 0.4 mg HS 10/10/16 21:00 10/14/16 20:56 0.4 MG Vitamin D (Vitamin D3) 5,000 unit DAILY 10/10/16 14:00 10/15/16 08:38 5,000 UNIT Lab Laboratory Tests Test 10/15/16 06:00 White Blood Count 5.0x10^3/uL (4.0-11.0) Red Blood Count 3.05x10^6/uL (4.30-5.70) Hemoglobin 9.4g/dL (13.0-17.5) Hematocrit 27.4% (39.0-53.0) Mean Corpuscular Volume 90fL (79-100) Mean Corpuscular Hemoglobin 31pg (25-35) Mean Corpuscular Hemoglobin Concent 34g/dL (31-37) Red Cell Distribution Width 14.3% (11.5-14.5) Platelet Count 132x10^3/uL (140-400) Neutrophils (%) (Auto) 78% (31-73) Lymphocytes (%) (Auto) 8% (24-48) Monocytes (%) (Auto) 12% (0-9) Eosinophils (%) (Auto) 2% (0-3) Basophils (%) (Auto) 0% (0-3) Neutrophils # (Auto) 3.9x10^3uL (1.8-7.7) Lymphocytes # (Auto) 0.4x10^3/uL (1.0-4.8) Monocytes # (Auto) 0.6x10^3/uL (0.0-1.1) Eosinophils # (Auto) 0.1x10^3/uL (0.0-0.7) Basophils # (Auto) 0.0x10^3/uL (0.0-0.2) Sodium Level 142mmol/L (136-145) Potassium Level 3.5mmol/L (3.5-5.1) Chloride Level 105mmol/L (98-107) Carbon Dioxide Level 30mmol/L (21-32) Anion Gap 7 (6-14) Blood Urea Nitrogen 28mg/dL (8-26) Creatinine 2.0mg/dL (0.7-1.3) Estimated GFR (Cockcroft-Gault) 32.1 Glucose Level 88mg/dL (70-99) Calcium Level 10.2mg/dL (8.5-10.1) Phosphorus Level 3.1mg/dL (2.6-4.7) Magnesium Level 1.6mg/dL (1.8-2.4) Albumin 2.4g/dL (3.4-5.0) DIAZ GUNN MD Oct 15, 2016 12:51
[2016-10-15 15:00] VITALS: BP 122/77
[2016-10-15] MEDS: HYDROCODONE/APAP 5/325MG TABLET. PO PRN ×2 (18:14→22:30)
[2016-10-15 19:00] VITALS: BP 117/72
--- NOTE | 2016-10-15 19:24 | PDOC ---
GENERAL General: vss and afebrile. awake and alert and having lunch with family and has had some return of appetite. Hb 9.4 and creatinine decreased to 2.0. exam stable. await path with plans to follow. Problems: VITAL SIGNS Vital Signs: Vital Signs Date Time Temp Pulse Resp B/P Pulse Ox O2 Delivery O2 Flow Rate FiO2 10/15/16 18:14 92 Room Air 2.0 10/15/16 17:38 83 122/77 10/15/16 15:00 97.3 20 97.3 I & O I & O Intake and Output 10/15/16 07:00 Intake Total 460 ml Output Total 2090 ml Balance -1630 ml Intake Oral 360 ml IV Total 100 ml Output Urine Total 700 ml Drainage Total 1390 ml ALLERGIES Allergies: Allergies Coded Allergies Type Severity Reaction Last Updated Verified No Known Drug Allergies 10/10/16 No MEDS Medications: Current Medications Medications (Trade) Dose Ordered Sig/Selena Start Time Stop Time Status Last Admin Dose Admin Acetaminophen/ Hydrocodone Bitart (Lortab 5/325) 1 tab PRN Q4HRS PRN 10/15/16 17:45 10/15/16 18:14 1 TAB Apixaban (Eliquis) 2.5 mg BID 10/12/16 21:00 10/12/16 21:00 DC Aspirin (Children'S Aspirin) 81 mg DAILY08 10/10/16 14:00 10/12/16 19:37 DC 10/12/16 08:47 81 MG Calcitonin [place] (Miacalcin) 400 unit BID 10/10/16 21:00 10/12/16 23:52 DC 10/12/16 08:51 400 UNIT Carvedilol (Coreg) 25 mg BIDWMEALS 10/10/16 17:00 10/15/16 17:38 25 MG Dabigatran (Pradaxa) 75 mg BID 10/11/16 09:00 10/12/16 14:56 DC 10/11/16 10:03 75 MG Dexamethasone Sodium Phosphate (Decadron) 20 mg STK-MED ONCE 10/12/16 12:25 10/12/16 12:26 DC Diphenhydramine HCl (Benadryl) 25 mg 1X PRN PRN 10/12/16 18:00 10/13/16 13:06 DC EZETIMIBE (Zetia) 10 mg HS 10/10/16 21:00 10/14/16 20:56 10 MG Fenofibrate (Lofibra) 134 mg DAILY 10/10/16 14:00 10/15/16 08:38 134 MG Fentanyl Citrate (Fentanyl 2ml Vial) 50 mcg PRN Q2HR PRN 10/14/16 01:30 10/14/16 20:58 50 MCG Gelatin (Gelfoam Size 12-7mm) 1 each STK-MED ONCE 10/13/16 14:44 10/13/16 14:45 DC Heparin Sodium (Porcine) 2,400 unit 1X ONCE 10/12/16 16:30 10/12/16 16:31 DC 10/12/16 16:27 2,400 UNIT Heparin Sodium/ Sodium Chloride 6 unit 1X ONCE 10/12/16 16:30 10/12/16 16:31 DC 10/12/16 16:27 6 UNIT Hydromorphone HCl (Dilaudid) 0.5 mg PRN Q10MIN PRN 10/12/16 09:30 10/13/16 09:29 DC Idarucizumab (Praxbind) 5 gm 1X ONCE 10/12/16 16:30 10/12/16 16:31 DC 10/12/16 16:48 5 GM Info (Anti-Coagulation Monitoring By Pharmacy) 1 each PRN DAILY PRN 10/10/16 14:45 10/13/16 09:44 DC 10/11/16 08:28 1 EACH Info (PHARMACY MONITORING -- do not chart) 1 each PRN DAILY PRN 10/13/16 11:00 10/13/16 11:05 DC Iohexol 50 ml 50 ml STK-MED ONCE 10/12/16 11:38 10/12/16 11:39 DC Lactated Ringer's (Iv Lactated Ringers) 1,000 ml @ 0 mls/hr Q0M 10/12/16 09:29 10/12/16 21:28 DC 10/12/16 12:43 100 MLS/HR Levofloxacin (Levaquin) 250 mg DAILY06 10/16/16 06:00 Levofloxacin/ Dextrose (LEVAQUIN 250mg PREMIX) 50 ml @ 100 mls/hr 1X ONCE 10/13/16 13:30 10/13/16 13:59 DC 10/13/16 16:25 100 MLS/HR Lidocaine HCl 20 ml STK-MED ONCE 10/12/16 15:40 10/12/16 15:41 DC Lidocaine/ Epinephrine (Xylocaine 1%-Epi 1:100,000) 2 ml 1X ONCE 10/12/16 16:30 10/12/16 16:31 DC 10/12/16 16:28 2 ML Lidocaine/Sodium Bicarbonate 20 ml 20 ml 1X ONCE 10/13/16 13:15 10/13/16 13:16 DC 10/13/16 16:23 28 ML Losartan Potassium (Cozaar) 100 mg QHS 10/10/16 21:00 10/13/16 20:36 100 MG Magnesium Sulfate/ Dextrose (Magnesium Sulfate PREMIX 2GM) 50 ml @ 25 mls/hr PRN DAILY PRN 10/10/16 13:30 10/14/16 13:04 25 MLS/HR Midazolam HCl (Versed) 2 mg 1X ONCE 10/13/16 15:00 10/13/16 15:01 DC 10/13/16 16:25 2 MG Morphine Sulfate 1 mg 1 mg PRN Q10MIN PRN 10/12/16 09:30 10/13/16 09:29 DC Multivitamins/ Calcium (Thera M Plus) 1 tab DAILY 10/10/16 14:00 10/15/16 08:39 1 TAB Non-Formulary Medication 20 meq DAILYWSUP 10/10/16 17:00 UNV Ondansetron HCl (Zofran) 4 mg STK-MED ONCE 10/12/16 12:25 10/12/16 12:26 DC Phenylephrine HCl 1 mg STK-MED ONCE 10/12/16 13:59 10/12/16 14:00 DC Potassium Chloride (Klor-Con) 20 meq DAILYWSUP 10/10/16 17:00 10/10/16 17:00 DC Prochlorperazine Edisylate (Compazine) 5 mg PACU PRN PRN 10/12/16 09:30 10/13/16 09:29 DC Propofol (Diprivan) 20 ml @ As Directed STK-MED ONCE 10/12/16 12:25 10/12/16 12:26 DC Sertraline HCl (Zoloft) 50 mg HS 10/10/16 21:00 10/14/16 20:56 50 MG Simvastatin (Zocor) 80 mg QHS 10/10/16 21:00 10/14/16 20:56 80 MG Sodium Polystyrene Sulfonate (Kayexalate) 45 gm 1X ONCE 10/10/16 13:30 10/10/16 13:44 DC 10/10/16 15:07 45 GM Sodium Chloride (Iv Sodium Chloride 0.9% 1000ml Bag) 1,000 ml @ 400 mls/hr Q2H30M PRN 10/12/16 17:48 10/13/16 05:47 DC Sodium Chloride (Normal Saline Flush) 10 ml 1X PRN PRN 10/13/16 11:00 10/13/16 18:00 DC Sodium Chloride 10 ml 10 ml 1X PRN PRN 10/12/16 18:00 10/13/16 13:06 DC Spironolactone (Aldactone) 25 mg DAILY 10/10/16 14:00 10/10/16 14:17 DC Tamsulosin HCl (Flomax) 0.4 mg HS 10/10/16 21:00 10/14/16 20:56 0.4 MG Vitamin D (Vitamin D3) 5,000 unit DAILY 10/10/16 14:00 10/15/16 08:38 5,000 UNIT LAB Lab: Laboratory Tests Test 10/15/16 06:00 White Blood Count 5.0x10^3/uL (4.0-11.0) Red Blood Count 3.05x10^6/uL (4.30-5.70) Hemoglobin 9.4g/dL (13.0-17.5) Hematocrit 27.4% (39.0-53.0) Mean Corpuscular Volume 90fL (79-100) Mean Corpuscular Hemoglobin 31pg (25-35) Mean Corpuscular Hemoglobin Concent 34g/dL (31-37) Red Cell Distribution Width 14.3% (11.5-14.5) Platelet Count 132x10^3/uL (140-400) Neutrophils (%) (Auto) 78% (31-73) Lymphocytes (%) (Auto) 8% (24-48) Monocytes (%) (Auto) 12% (0-9) Eosinophils (%) (Auto) 2% (0-3) Basophils (%) (Auto) 0% (0-3) Neutrophils # (Auto) 3.9x10^3uL (1.8-7.7) Lymphocytes # (Auto) 0.4x10^3/uL (1.0-4.8) Monocytes # (Auto) 0.6x10^3/uL (0.0-1.1) Eosinophils # (Auto) 0.1x10^3/uL (0.0-0.7) Basophils # (Auto) 0.0x10^3/uL (0.0-0.2) Sodium Level 142mmol/L (136-145) Potassium Level 3.5mmol/L (3.5-5.1) Chloride Level 105mmol/L (98-107) Carbon Dioxide Level 30mmol/L (21-32) Anion Gap 7 (6-14) Blood Urea Nitrogen 28mg/dL (8-26) Creatinine 2.0mg/dL (0.7-1.3) Estimated GFR (Cockcroft-Gault) 32.1 Glucose Level 88mg/dL (70-99) Calcium Level 10.2mg/dL (8.5-10.1) Phosphorus Level 3.1mg/dL (2.6-4.7) Magnesium Level 1.6mg/dL (1.8-2.4) Albumin 2.4g/dL (3.4-5.0) AYALA LYMAN MD Oct 15, 2016 19:24
[2016-10-15] MEDS: EZETIMIBE 10 MG TABLET PO SCH (22:29)
[2016-10-15] MEDS: TAMSULOSIN 0.4 MG CAP.ER.24H. PO SCH (22:30)
[2016-10-15] MEDS: SIMVASTATIN 40 MG TABLET. PO SCH (22:30)
[2016-10-15] MEDS: SERTRALINE 50 MG TABLET. PO SCH (22:30)
[2016-10-15] MEDS: LOSARTAN POTASSIUM 50 MG TABLET. PO SCH (22:31)
--- NOTE | 2016-10-15 23:31 | PN ---
DATE: 10/15/2016 CHIEF COMPLAINT: Renal failure, bilateral hydronephrosis, hemorrhagic prostate. This patient recently underwent cystoscopy. I was unable to locate the ureteral orifices and not able to place bilateral ureteral stents. During the course of the procedure, the patient developed gross hematuria and was found to have a significant coagulopathy. Therefore, a 3-way Coleman catheter was left in place connected to continuous bladder irrigation until the coagulopathy could be corrected. Since that time, the patient has undergone bilateral nephrostomy tubes per interventional radiology. His renal function has been improving. The patient's coagulopathy has been corrected for the most part and his urine output from the Coleman catheter is now clear. Therefore, I think we can remove the Coleman catheter. PROCEDURE: The patient's Coleman catheter was removed without difficulty. He tolerated the procedure well. IVA LR DO DR: Mikie JOB#: [id number] / [id number]
[2016-10-15 23:51] VITALS: BP 129/82
[2016-10-16 03:26] VITALS: BP 155/95
[2016-10-16 05:14] LABS: BASO % 1 % (0-3); EOS % 2 % (0-3); HEMOGLOBIN 9.5 g/dL (13.0-17.5); LYMPH # 0.5 x10^3/uL (1.0-4.8); LYMPH % 11 % (24-48); MEAN CORPUSCULAR HEMOGLOBIN 31 pg (25-35); MEAN CORPUSCULAR HGB CONC 34 g/dL (31-37); MEAN CORPUSCULAR VOLUME 91 fL (79-100); MONO % 11 % (0-9); NEUT % 76 % (31-73); PLATELET COUNT 144 x10^3/uL (140-400); RED BLOOD COUNT 3.08 x10^6/uL (4.30-5.70); RED CELL DISTRIBUTION WIDTH 14.7 % (11.5-14.5); WHITE BLOOD COUNT 4.6 x10^3/uL (4.0-11.0)
[2016-10-16 05:40] LABS: ALBUMIN 2.4 g/dL (3.4-5.0); CALCIUM 11.1 mg/dL (8.5-10.1); CREATININE 2.1 mg/dL (0.7-1.3); GFR 30.3; PHOSPHORUS 3.2 mg/dL (2.6-4.7); POTASSIUM 3.2 mmol/L (3.5-5.1)
[2016-10-16] MEDS: LEVOFLOXACIN 250 MG TABLET. PO SCH (06:00)
[2016-10-16 07:00] VITALS: BP 156/100
[2016-10-16] MEDS: CHOLECALCIFEROL (VITAMIN D3) 5,000 UNIT CAPSULE PO SCH (08:45)
[2016-10-16] MEDS: HYDROCODONE/APAP 5/325MG TABLET. PO PRN ×2 (08:45→15:21)
[2016-10-16] MEDS: MULTIVITAMIN with MINERAL TABLET. PO SCH (08:45)
[2016-10-16] MEDS: CARVEDILOL 12.5 MG TABLET PO SCH ×2 (08:46→17:54)
[2016-10-16] MEDS: FENOFIBRATE,MICRONIZED 134 MG CAPSULE PO SCH (08:46)
--- NOTE | 2016-10-16 10:58 | PDOC ---
PROGRESS NOTES Subjective Subjective Pt awake and pleasant this am. States he is feeling well. States his appetite is returning. Objective Objective Pt awake and alert. NAD. VSS. Afebrile. Lungs CTA bilat. Resp even and unlabored. Heart with RRR. No murmurs. Vital Signs Date Time Temp Pulse Resp B/P Pulse Ox O2 Delivery O2 Flow Rate FiO2 10/16/16 08:46 83 156/100 10/16/16 08:45 18 Room Air 10/16/16 07:00 97.4 94 97.4 10/15/16 18:14 2.0 Intake and Output 10/16/16 07:00 Intake Total 240 ml Output Total 1325 ml Balance -1085 ml Intake Oral 240 ml Output Urine Total 0 ml Drainage Total 1325 ml # Voids 1 Assessment Assessment Problems Medical Problems: (1) Acute renal failure (ARF) Status: Acute Plan Plan of Care 1. Acute renal failure -Creat 5.5 upon admission, 2.1 this am. Baseline 1.4 -IVF -Renal US: Left greater than right hydronephrosis with small left renal cyst -Coleman placed -Bilat nephrostomy tubes placed -Renal team consulting -CT abdomen: Large soft tissue mass encasing the infrarenal abdominal aorta and iliac arteries, left greater than right, as described above. Diagnostic considerations include severe retroperitoneal fibrosis or a neoplastic etiology such as lymphoma or metastatic disease. -Uretal stenting attempted on 10/12, unsuccessful d/t prostate bleeding. Prodaxa stopped and reversal agent given. Bleeding better this am. Hgb 9.4. -Dr Ross consulting -Bx on 10/13, awaiting pathology. 2. Hyperkalemia, now hypokalemia -K 5.9 upon admission, 5.0 this am following Kayexalate dosing. 3.2 this am 3. Hypercalcemia -Ca 14.4 upon admission, 11.9 this am following Miacalcin x3. 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 Probable associated spinal stenosis at L2-3 due to retropulsion at the L2 fracture site. Moderate multilevel degenerative change. Distal abdominal aortic aneurysm. 5. Anemia -Hgb 11.8 upon admission, 9.5 this am -TIBC 283, Iron 57, Ferritin 752 -Recheck CBC in am 6. HTN -Restart home meds Concerned of possible Multiple Myeloma. Total protein normal, serum protein electrophoresis elevated. Comment Review of Relevant I have reviewed the following items juan (where applicable) has been applied. Labs Laboratory Tests Test 10/15/16 06:00 10/16/16 04:30 White Blood Count 5.0x10^3/uL (4.0-11.0) 4.6x10^3/uL (4.0-11.0) Red Blood Count 3.05x10^6/uL (4.30-5.70) 3.08x10^6/uL (4.30-5.70) Hemoglobin 9.4g/dL (13.0-17.5) 9.5g/dL (13.0-17.5) Hematocrit 27.4% (39.0-53.0) 28.0% (39.0-53.0) Mean Corpuscular Volume 90fL (79-100) 91fL (79-100) Mean Corpuscular Hemoglobin 31pg (25-35) 31pg (25-35) Mean Corpuscular Hemoglobin Concent 34g/dL (31-37) 34g/dL (31-37) Red Cell Distribution Width 14.3% (11.5-14.5) 14.7% (11.5-14.5) Platelet Count 132x10^3/uL (140-400) 144x10^3/uL (140-400) Neutrophils (%) (Auto) 78% (31-73) 76% (31-73) Lymphocytes (%) (Auto) 8% (24-48) 11% (24-48) Monocytes (%) (Auto) 12% (0-9) 11% (0-9) Eosinophils (%) (Auto) 2% (0-3) 2% (0-3) Basophils (%) (Auto) 0% (0-3) 1% (0-3) Neutrophils # (Auto) 3.9x10^3uL (1.8-7.7) 3.5x10^3uL (1.8-7.7) Lymphocytes # (Auto) 0.4x10^3/uL (1.0-4.8) 0.5x10^3/uL (1.0-4.8) Monocytes # (Auto) 0.6x10^3/uL (0.0-1.1) 0.5x10^3/uL (0.0-1.1) Eosinophils # (Auto) 0.1x10^3/uL (0.0-0.7) 0.1x10^3/uL (0.0-0.7) Basophils # (Auto) 0.0x10^3/uL (0.0-0.2) 0.0x10^3/uL (0.0-0.2) Sodium Level 142mmol/L (136-145) 140mmol/L (136-145) Potassium Level 3.5mmol/L (3.5-5.1) 3.2mmol/L (3.5-5.1) Chloride Level 105mmol/L (98-107) 106mmol/L (98-107) Carbon Dioxide Level 30mmol/L (21-32) 29mmol/L (21-32) Anion Gap 7 (6-14) 5 (6-14) Blood Urea Nitrogen 28mg/dL (8-26) 32mg/dL (8-26) Creatinine 2.0mg/dL (0.7-1.3) 2.1mg/dL (0.7-1.3) Estimated GFR (Cockcroft-Gault) 32.1 30.3 Glucose Level 88mg/dL (70-99) 93mg/dL (70-99) Calcium Level 10.2mg/dL (8.5-10.1) 11.1mg/dL (8.5-10.1) Phosphorus Level 3.1mg/dL (2.6-4.7) 3.2mg/dL (2.6-4.7) Magnesium Level 1.6mg/dL (1.8-2.4) Albumin 2.4g/dL (3.4-5.0) 2.4g/dL (3.4-5.0) Laboratory Tests Test 10/16/16 04:30 White Blood Count 4.6x10^3/uL (4.0-11.0) Red Blood Count 3.08x10^6/uL (4.30-5.70) Hemoglobin 9.5g/dL (13.0-17.5) Hematocrit 28.0% (39.0-53.0) Mean Corpuscular Volume 91fL (79-100) Mean Corpuscular Hemoglobin 31pg (25-35) Mean Corpuscular Hemoglobin Concent 34g/dL (31-37) Red Cell Distribution Width 14.7% (11.5-14.5) Platelet Count 144x10^3/uL (140-400) Neutrophils (%) (Auto) 76% (31-73) Lymphocytes (%) (Auto) 11% (24-48) Monocytes (%) (Auto) 11% (0-9) Eosinophils (%) (Auto) 2% (0-3) Basophils (%) (Auto) 1% (0-3) Neutrophils # (Auto) 3.5x10^3uL (1.8-7.7) Lymphocytes # (Auto) 0.5x10^3/uL (1.0-4.8) Monocytes # (Auto) 0.5x10^3/uL (0.0-1.1) Eosinophils # (Auto) 0.1x10^3/uL (0.0-0.7) Basophils # (Auto) 0.0x10^3/uL (0.0-0.2) Sodium Level 140mmol/L (136-145) Potassium Level 3.2mmol/L (3.5-5.1) Chloride Level 106mmol/L (98-107) Carbon Dioxide Level 29mmol/L (21-32) Anion Gap 5 (6-14) Blood Urea Nitrogen 32mg/dL (8-26) Creatinine 2.1mg/dL (0.7-1.3) Estimated GFR (Cockcroft-Gault) 30.3 Glucose Level 93mg/dL (70-99) Calcium Level 11.1mg/dL (8.5-10.1) Phosphorus Level 3.2mg/dL (2.6-4.7) Albumin 2.4g/dL (3.4-5.0) Medications Current Medications Sodium Chloride 1,000 ml @ 100 mls/hr Q10H IV Last administered on 10/11/16t 08 :49; Start 10/10/16 at 11:00; Stop 10/11/16 at 21:27; Status DC Magnesium Sulfate/ Dextrose (Magnesium Sulfate PREMIX 2GM) 50 ml @ 25 mls/hr PRN DAILY PRN IV for Mag < 1.7 on am labs Last administered on 10/14/16 13:04; Start 10/10/16 at 13:30 Sodium Polystyrene Sulfonate (Kayexalate) 45 gm 1X ONCE PO Last administered on 10/10/16 15:07; Start 10/10/16 at 13:30; Stop 10/10/16 at 13:44; Status DC Aspirin (Children'S Aspirin) 81 mg DAILY08 PO Last administered on 10/12/16 08: 47; Start 10/10/16 at 14:00; Stop 10/12/16 at 19:37; Status DC Dabigatran (Pradaxa) 150 mg BID PO Last administered on 10/10/16 21:48; Start 10/10/16 at 21:00; Stop 10/11/16 at 08:25; Status DC Potassium Chloride (Klor-Con) 20 meq DAILYWSUP PO ; Start 10/10/16 at 17:00; Stop 10/10/16 at 17:00; Status DC Sertraline HCl (Zoloft) 50 mg HS PO Last administered on 10/15/16 22:30; Start 10/10/16 at 21:00 Spironolactone (Aldactone) 25 mg DAILY PO ; Start 10/10/16 at 14:00; Stop at 14:17; Status DC Tamsulosin HCl (Flomax) 0.4 mg HS PO Last administered on 10/15/16 22:30; Start 10/10/16 at 21:00 Carvedilol (Coreg) 25 mg BIDWMEALS PO Last administered on 10/16/16 08:46; Start 10/10/16 at 17:00 Vitamin D (Vitamin D3) 5,000 unit DAILY PO Last administered on 10/16/16 08:45 ; Start 10/10/16 at 14:00 EZETIMIBE (Zetia) 10 mg DAILY PO ; Start 10/10/16 at 14:00; Stop 10/10/16 at 21: 00; Status Cancel Fenofibrate (Lofibra) 134 mg DAILY PO Last administered on 10/16/16 08:46; Start 10/10/16 at 14:00 Losartan Potassium (Cozaar) 100 mg QHS PO Last administered on 10/15/16 22:31; Start 10/10/16 at 21:00 Multivitamins/ Calcium (Thera M Plus) 1 tab DAILY PO Last administered on 08:45; Start 10/10/16 at 14:00 Non-Formulary Medication 20 meq DAILYWSUP PO ; Start 10/10/16 at 17:00; Status UNV Simvastatin (Zocor) 80 mg QHS PO Last administered on 10/15/16 22:30; Start at 21:00 Calcitonin [place] (Miacalcin) 400 unit BID SQ Last administered on 10/12/16 08: 51; Start 10/10/16 at 21:00; Stop 10/12/16 at 23:52; Status DC Info (Anti-Coagulation Monitoring By Pharmacy) 1 each PRN DAILY PRN MC SEE COMMENTS Last administered on 10/11/16 08:28; Start 10/10/16 at 14:45; Stop 10/13 at 09:44; Status DC Ondansetron HCl (Zofran) 4 mg PRN Q6HRS PRN IV NAUSEA/VOMITING; Start 10/10/16 at 15:30 EZETIMIBE (Zetia) 10 mg HS PO Last administered on 10/15/16 22:29; Start at 21:00 Dabigatran (Pradaxa) 75 mg BID PO Last administered on 10/11/16 10:03; Start at 09:00; Stop 10/12/16 at 14:56; Status DC Ondansetron HCl (Zofran) 4 mg PRN Q6HRS PRN IV Nausea; Start 10/12/16 at 09:30; Stop 10/13/16 at 09:29; Status DC Fentanyl Citrate (Fentanyl 2ml Vial) 25 mcg PRN Q5MIN PRN IV MILD PAIN; Start 10/12/16 at 09:30; Stop 10/13/16 at 09:29; Status DC Fentanyl Citrate (Fentanyl 2ml Vial) 50 mcg PRN Q5MIN PRN IV MODERATE PAIN; Start 10/12/16 at 09:30; Stop 10/13/16 at 09:29; Status DC Morphine Sulfate 1 mg 1 mg PRN Q10MIN PRN IV SEVERE PAIN; Start 10/12/16 at 09: 30; Stop 10/13/16 at 09:29; Status DC Lactated Ringer's (Iv Lactated Ringers) 1,000 ml @ 0 mls/hr Q0M IV Last administered on 10/12/16 12:43; Start 10/12/16 at 09:29; Stop 10/12/16 at 21:28; Status DC Lidocaine HCl 2 ml 1X PRN PRN ID IV START; Start 10/12/16 at 09:30; Stop at 09:29; Status DC Hydromorphone HCl (Dilaudid) 0.5 mg PRN Q10MIN PRN IV SEV PAIN,Second choice; Start 10/12/16 at 09:30; Stop 10/13/16 at 09:29; Status DC Prochlorperazine Edisylate 5 mg 5 mg PACU PRN PRN IV NAUSEA; Start 10/12/16 at 09:30; Stop 10/13/16 at 09:29; Status DC Levofloxacin/ Dextrose (LEVAQUIN 250mg PREMIX) 50 ml @ 50 mls/hr Q24H IV Last administered on 10/15/16 08:39; Start 10/12/16 at 10:00; Stop 10/15/16 at 15:52; Status DC Iohexol 50 ml 50 ml STK-MED ONCE .ROUTE ; Start 10/12/16 at 11:38; Stop 10/12/16 at 11:39; Status DC Propofol (Diprivan) 20 ml @ As Directed STK-MED ONCE IV ; Start 10/12/16 at 12:25 ; Stop 10/12/16 at 12:26; Status DC Lidocaine HCl 100 mg STK-MED ONCE .ROUTE ; Start 10/12/16 at 12:25; Stop 10/12/16 at 12:26; Status DC Dexamethasone Sodium Phosphate (Decadron) 20 mg STK-MED ONCE .ROUTE ; Start 10/12 at 12:25; Stop 10/12/16 at 12:26; Status DC Ondansetron HCl (Zofran) 4 mg STK-MED ONCE .ROUTE ; Start 10/12/16 at 12:25; Stop 10/12/16 at 12:26; Status DC Fentanyl Citrate (Fentanyl 2ml Vial) 100 mcg STK-MED ONCE .ROUTE ; Start at 12:25; Stop 10/12/16 at 12:26; Status DC Phenylephrine HCl 1 mg STK-MED ONCE IV ; Start 10/12/16 at 13:59; Stop 10/12/16 at 14:00; Status DC Apixaban (Eliquis) 2.5 mg BID PO ; Start 10/12/16 at 21:00; Stop 10/12/16 at 21:00 ; Status DC Idarucizumab (Praxbind) 5 gm 1X ONCE IV Last administered on 10/12/16 16:48; Start 10/12/16 at 16:30; Stop 10/12/16 at 16:31; Status DC Heparin Sodium (Porcine) 10,000 unit STK-MED ONCE .ROUTE ; Start 10/12/16 at 15: 40; Stop 10/12/16 at 15:41; Status DC Lidocaine HCl 20 ml 20 ml STK-MED ONCE .ROUTE ; Start 10/12/16 at 15:40; Stop 10/12/16 at 15:41; Status DC Heparin Sodium/ Sodium Chloride 500 ml @ As Directed STK-MED ONCE .ROUTE ; Start 10/12/16 at 15:40; Stop 10/12/16 at 15:41; Status DC Lidocaine/ Epinephrine (Xylocaine 1%-Epi 1:100,000) 20 ml STK-MED ONCE .ROUTE ; Start 10/12/16 at 15:43; Stop 10/12/16 at 15:44; Status DC Heparin Sodium (Porcine) 2,400 unit 1X ONCE INT CAT Last administered on 16:27; Start 10/12/16 at 16:30; Stop 10/12/16 at 16:31; Status DC Heparin Sodium/ Sodium Chloride 6 unit 1X ONCE IV Last administered on 16:27; Start 10/12/16 at 16:30; Stop 10/12/16 at 16:31; Status DC Lidocaine/ Epinephrine 2 ml 2 ml 1X ONCE IJ Last administered on 10/12/16 16: 28; Start 10/12/16 at 16:30; Stop 10/12/16 at 16:31; Status DC Sodium Chloride (Iv Sodium Chloride 0.9% 1000ml Bag) 1,000 ml @ 1,000 mls/hr Q1H PRN IV hypotension; Start 10/12/16 at 17:48; Stop 10/12/16 at 23:47; Status DC Diphenhydramine HCl (Benadryl) 25 mg 1X PRN PRN IV ITCHING; Start 10/12/16 at 18 :00; Stop 10/13/16 at 13:06; Status DC Diphenhydramine HCl (Benadryl) 25 mg 1X PRN PRN IV ITCHING; Start 10/12/16 at 18 :00; Stop 10/13/16 at 13:06; Status DC Sodium Chloride (Normal Saline Flush) 10 ml 1X PRN PRN IV AP catheter pack; Start 10/12/16 at 18:00; Stop 10/13/16 at 13:06; Status DC Sodium Chloride 10 ml 10 ml 1X PRN PRN IV PHYSICIAN SPECIALIST catheter pack; Start 10/12/16 at 18 :00; Stop 10/13/16 at 13:06; Status DC Sodium Chloride (Iv Sodium Chloride 0.9% 1000ml Bag) 1,000 ml @ 400 mls/hr Q2H30M PRN IV PATENCY; Start 10/12/16 at 17:48; Stop 10/13/16 at 05:47; Status DC Sodium Chloride (Normal Saline Flush) 10 ml 1X PRN PRN IV AP catheter pack; Start 10/13/16 at 11:00; Stop 10/13/16 at 18:00; Status DC Sodium Chloride (Normal Saline Flush) 10 ml 1X PRN PRN IV PHYSICIAN SPECIALIST catheter pack; Start 10/13/16 at 11:00; Stop 10/13/16 at 18:00; Status DC Info (PHARMACY MONITORING -- do not chart) 1 each PRN DAILY PRN MC SEE COMMENTS ; Start 10/13/16 at 11:00 Info (PHARMACY MONITORING -- do not chart) 1 each PRN DAILY PRN MC SEE COMMENTS ; Start 10/13/16 at 11:00; Stop 10/13/16 at 11:05; Status DC Lidocaine/Sodium Bicarbonate 20 ml 20 ml 1X ONCE IJ Last administered on t 16:23; Start 10/13/16 at 13:15; Stop 10/13/16 at 13:16; Status DC Levofloxacin/ Dextrose (LEVAQUIN 250mg PREMIX) 50 ml @ 100 mls/hr 1X ONCE IV Last administered on 10/13/16 16:25; Start 10/13/16 at 13:30; Stop 10/13/16 at 13: 59; Status DC Midazolam HCl (Versed) 2 mg STK-MED ONCE .ROUTE ; Start 10/13/16 at 14:03; Stop 10/13/16 at 14:04; Status DC Fentanyl Citrate (Fentanyl 2ml Vial) 100 mcg STK-MED ONCE .ROUTE ; Start at 14:03; Stop 10/13/16 at 14:04; Status DC Gelatin (Gelfoam Size 12-7mm) 1 each STK-MED ONCE .ROUTE ; Start 10/13/16 at 14: 44; Stop 10/13/16 at 14:45; Status DC Midazolam HCl (Versed) 2 mg 1X ONCE IV Last administered on 10/13/16 16:25; Start 10/13/16 at 15:00; Stop 10/13/16 at 15:01; Status DC Fentanyl Citrate (Fentanyl 2ml Vial) 100 mcg 1X ONCE IV Last administered on 16:26; Start 10/13/16 at 15:00; Stop 10/13/16 at 15:01; Status DC Fentanyl Citrate (Fentanyl 2ml Vial) 50 mcg PRN Q2HR PRN IV SEVERE PAIN Last administered on 10/14/16 20:58; Start 10/14/16 at 01:30 Levofloxacin (Levaquin) 250 mg DAILY06 PO Last administered on 10/16/16 06:00; Start 10/16/16 at 06:00 Acetaminophen/ Hydrocodone Bitart (Lortab 5/325) 1 tab PRN Q4HRS PRN PO PAIN Last administered on 10/16/16 08:45; Start 10/15/16 at 17:45 Active Scripts Active Reported Fenofibrate (Fenofibrate Nanocrystallized) 145 Mg Tablet 1 Tab PO DAILYWLUN Potassium Chloride 20 Meq Tablet.er 20 Meq PO DAILYWSUP Calcium (Calcium Carbonate) 600 Mg Tablet 600 Mg PO Vytorin 10-80 Mg Tablet (Ezetimibe/Simvastatin) 1 Each Tablet 1 Each PO HS Multi-Vitamin Daily (Multivitamin) 1 Each Tablet 1 Each PO DAILY Vitamin D3 (Cholecalciferol (Vitamin D3)) 5,000 Unit Tablet 1 Tab PO DAILY Pradaxa (Dabigatran Etexilate Mesylate) 150 Mg Capsule 1 Cap PO BID Zoloft (Sertraline Hcl) 50 Mg Tablet 1 Tab PO HS Tamsulosin Hcl 0.4 Mg Cap.er.24h 1 Cap PO HS Losartan Potassium 100 Mg Tablet 100 Mg PO HS Klor-Con M20 (Potassium Chloride) 20 Meq Tab.er.prt 1 Tab PO DAILY Spironolactone 25 Mg Tablet 1 Tab PO DAILY Aspirin 81 Mg Tab.chew 1 Tab PO DAILY Carvedilol 25 Mg Tablet 1 Tab PO BID Vitals/I & O Vital Sign - Last 24 Hours 10/15/16 10/15/16 10/15/16 10/15/16 11:00 15:00 17:38 18:14 Temp 97.7 97.3 97.7 97.3 Pulse 68 83 83 Resp 20 20 B/P 104/66 122/77 122/77 Pulse Ox 92 92 92 O2 Delivery Room Air Room Air Room Air O2 Flow Rate 2.0 10/15/16 10/15/16 10/15/16 10/15/16 19:00 20:00 22:30 22:31 Temp 97.9 97.9 Pulse 87 87 Resp 16 16 B/P 117/72 117/72 Pulse Ox 92 92 O2 Delivery Room Air Room Air Room Air 10/15/16 10/15/16 10/16/16 10/16/16 23:30 23:51 03:26 07:00 Temp 97.9 97.8 97.4 97.9 97.8 97.4 Pulse 82 91 83 Resp 16 18 18 18 B/P 129/82 155/95 156/100 Pulse Ox 92 92 94 94 O2 Delivery Room Air Room Air Room Air Room Air 10/16/16 10/16/16 08:45 08:46 Pulse 83 Resp 18 B/P 156/100 O2 Delivery Room Air Intake and Output 10/15/16 10/15/16 10/16/16 15:00 23:00 07:00 Intake Total 240 ml Output Total 0 ml 1325 ml Balance 0 ml -1085 ml AYALA LYMAN MD Oct 16, 2016 10:58
[2016-10-16 11:00] VITALS: BP 128/81
--- NOTE | 2016-10-16 12:21 | PDOC ---
Provider Note Provider Note DATE OF f/u: 10/16/2016 c/c - :f/u of Retroperitoneal mass in a patient has a history of lymphoma, hypercalcemia, bleeding after attempted cystoscopy and stent on 10/12/2016, status post Praxbind one dose on 10/12/2016. HISTORY OF PRESENT ILLNESS: The patient is an 81-year-old gentleman who has a history of melanoma treated by Dermatology several years ago and he had surgical resection. He is being followed by Dermatology for surveillance and a routine lab revealed elevated LDH level. He was then referred to Dr. Abisai Chung who is his primary care physician for further workup. Complete metabolic panel was done and he was noted to be in renal failure with a creatinine of 3.47 on 10/09/2016. He was also noted to have hypercalcemia of 13.5, LDH was 393. He was admitted to [facility] on 10/10/2016 for further evaluation. At the time of admission on 10/10/2016, his potassium was 5.9 with a creatinine of 5.5 and a calcium of 14.4. Nephrology was consulted. Intact PTH level was noted to be normal at 21, serum protein electrophoresis was normal, immunofixation was normal, kappa light chains and lambda light chains were elevated consistent with renal failure. He underwent an ultrasound on 10/10/2016 which revealed hydronephrosis, left greater than right along with a small renal cyst. CT scan of the abdomen and pelvis on 10/11/2016 revealed large soft tissue mass measuring 12.7 cm in width and 7.7 cm in AP dimension at the level of the aortic bifurcation. It was encased in the infrarenal abdominal aorta and the iliac arteries. Retroperitoneal fibrosis versus lymphoma or metastatic disease was in the differential diagnosis. 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 I was asked to see the patient for further evaluation of retroperitoneal mass. On 10/12/2016, the patient underwent cystoscopy and attempted stent placement and fulguration of hemorrhagic prostate by Dr. Arik Griggs. He had about 250 mL of blood loss and hence the stents were not placed. The patient had received Pradaxa on 10/11/2016 and hence he was treated with Praxbind at 4:30 p.m. on 10/12/2016. His urine is now clear and the bleeding has resolved. His INR on 10/12/2016 was 4.4. s/p nephrostomy tube placement and bx of abdominal mass 10/13/16. I also discussed the case in detail with Dr. Abisai Chung. PAST MEDICAL HISTORY: Melanoma, chronic kidney disease with a creatinine of 1.4 at baseline, abdominal aortic aneurysm 3.5 cm, atrial fibrillation for which he takes Pradaxa, benign prostatic hypertrophy, atherosclerotic heart disease, depression. REVIEW OF SYSTEMS: He feels better. Hematuria better. PHYSICAL EXAMINATION: GENERAL APPEARANCE: The patient is an 81-year-old gentleman who is in no acute cardiorespiratory distress. CHEST: Bilaterally symmetrical. No crepitations or rhonchi heard. HEART: S1, S2 normal. ABDOMEN: Soft, nontender. No hepatosplenomegaly. CENTRAL NERVOUS SYSTEM: No focal neurological deficits. LABORATORY DATA: On 10/12/2016, PT 39.8, INR 4.4, PTT 127. CBC on 10/13/2016 revealed a WBC of 5.9, hemoglobin 9.4, platelet count 135. Prior CBC on 10/10/2016 revealed a hemoglobin of 11.8. Chemistry panel from this admission on 10/10/2016 revealed normal serum protein electrophoresis, no M-spike, immunofixation does not reveal any monoclonal gammopathy, total protein 5.8, albumin 2.5. PTH normal at 21, IgG 784, IgA 207, IgM 67. [place] lambda light chain ratio is 1.79. Free kappa light chain 49.87, free lambda light chain 27.84. IMPRESSION AND PLAN: 1. Large abdominal mass encasing the infrarenal abdominal aorta measuring 12.7 cm concerning for retroperitoneal fibrosis versus malignancy. I discussed with Dr. Johnson and with Dr. Abisai Chung. s/p CT-guided biopsy of this mass 10/13/16, I d/w Dr Patel, prelim results are suggestive of lymphoma.. Await final results. Plan CT neck/chest and bone scan. 2. Hematuria/bleeding after procedure on 10/12/2016. He underwent cystoscopy and attempted stent placement which was unsuccessful. He had received Pradaxa on 10/11/2016 and hence he received Praxbind on 10/12/2016 at 4:30 p.m. The bleeding has now resolved 3. Coagulopathy due to Pradaxa improved after Praxbind infusion on 10/12/2016. 4. Renal failure. Appreciate Nephrology consultation, etiology thought to be due to bilateral hydronephrosis from abdominal mass. 5. Paget's disease. He also has a T6, L2 compression fracture, thought to be due to Paget's disease. 6. Melanoma diagnosed several years ago, being followed by Dermatology. 7. Serum protein electrophoresis and immunofixation is negative. There is no clinical evidence to suggest myeloma. 8. Hypercalcemia could be secondary to underlying malignancy. . JENNIFER QURESHI MD Oct 16, 2016 12:21
[2016-10-16 12:53] LABS: URIC ACID 6.1 mg/dL (3.5-7.2)
--- NOTE | 2016-10-16 13:37 | PDOC ---
SUBJECTIVE ROS YURI/ HyperCalcemia Doing OK CVS: no Orthopnea, no CP RESP: no SOB, no ZEPEDA GI: no Nausea, no Vomiting : no Dysuria, no Urgency OBJECTIVE Vital Signs Vital Signs Date Time Temp Pulse Resp B/P Pulse Ox O2 Delivery O2 Flow Rate FiO2 10/16/16 11:00 97.5 70 18 128/81 93 Room Air 97.5 10/15/16 18:14 2.0 I & 0 Intake and Output 10/16/16 07:00 Intake Total 240 ml Output Total 1325 ml Balance -1085 ml Intake Oral 240 ml Output Urine Total 0 ml Drainage Total 1325 ml # Voids 1 PHYSICAL EXAM Physical Exam General Appearance: Awake Alert Oriented x 3 In no Distress Eyes: VIsion Unchanged Conjunctiva Normal EN: No EN Drainage Mucous Memb. moist Neck: no JVD no JVP Supple no Thyromegaly CVS: S1 S2 soft Murmur No Gallop No Rub no Edema Resp: no Rales no Rhonchi no Acc. Muscle use GI: BS +ve NO Bruit Non Tender Non Distended : no CVA tenderness; (x around PCNs) no Suprapubic Tenderness ASSESSMENT/PLAN ARF: Creat better after HD x 2 and PCNs. watch Trend with PCNs in place Hydronephrosis - URO eval appreciated, PCNs done ^Krishna - was better - suspect due to Underlying Mass/ ? Lymphoma; restart Miacalcin; Unabel to use Pamidronate due to Renal Insuff. Low Mag - Replace per prn order Hypoalbuminemia - suspect due to Poor PO intake Anemia: (? part of Lymphoma) defer to Dr Ross who is now on the case HTN: Current BP meds reviewed. See orders for changes. COMMENT/RELEVANT DATA Meds Current Medications Medications (Trade) Dose Ordered Sig/Selena Start Time Stop Time Status Last Admin Dose Admin Acetaminophen/ Hydrocodone Bitart (Lortab 5/325) 1 tab PRN Q4HRS PRN 10/15/16 17:45 10/16/16 08:45 1 TAB Apixaban (Eliquis) 2.5 mg BID 10/12/16 21:00 10/12/16 21:00 DC Aspirin (Children'S Aspirin) 81 mg DAILY08 10/10/16 14:00 10/12/16 19:37 DC 10/12/16 08:47 81 MG Calcitonin [place] (Miacalcin) 400 unit BID 10/10/16 21:00 10/12/16 23:52 DC 10/12/16 08:51 400 UNIT Carvedilol (Coreg) 25 mg BIDWMEALS 10/10/16 17:00 10/16/16 08:46 25 MG Dabigatran (Pradaxa) 75 mg BID 10/11/16 09:00 10/12/16 14:56 DC 10/11/16 10:03 75 MG Dexamethasone Sodium Phosphate (Decadron) 20 mg STK-MED ONCE 10/12/16 12:25 10/12/16 12:26 DC Diphenhydramine HCl (Benadryl) 25 mg 1X PRN PRN 10/12/16 18:00 10/13/16 13:06 DC EZETIMIBE (Zetia) 10 mg HS 10/10/16 21:00 10/15/16 22:29 10 MG Fenofibrate (Lofibra) 134 mg DAILY 10/10/16 14:00 10/16/16 08:46 134 MG Fentanyl Citrate (Fentanyl 2ml Vial) 50 mcg PRN Q2HR PRN 10/14/16 01:30 10/14/16 20:58 50 MCG Gelatin (Gelfoam Size 12-7mm) 1 each STK-MED ONCE 10/13/16 14:44 10/13/16 14:45 DC Heparin Sodium (Porcine) 2,400 unit 1X ONCE 10/12/16 16:30 10/12/16 16:31 DC 10/12/16 16:27 2,400 UNIT Heparin Sodium/ Sodium Chloride 6 unit 1X ONCE 10/12/16 16:30 10/12/16 16:31 DC 10/12/16 16:27 6 UNIT Hydromorphone HCl (Dilaudid) 0.5 mg PRN Q10MIN PRN 10/12/16 09:30 10/13/16 09:29 DC Idarucizumab (Praxbind) 5 gm 1X ONCE 10/12/16 16:30 10/12/16 16:31 DC 10/12/16 16:48 5 GM Info (Anti-Coagulation Monitoring By Pharmacy) 1 each PRN DAILY PRN 10/10/16 14:45 10/13/16 09:44 DC 10/11/16 08:28 1 EACH Info (PHARMACY MONITORING -- do not chart) 1 each PRN DAILY PRN 10/13/16 11:00 10/13/16 11:05 DC Iohexol 50 ml 50 ml STK-MED ONCE 10/12/16 11:38 10/12/16 11:39 DC Lactated Ringer's (Iv Lactated Ringers) 1,000 ml @ 0 mls/hr Q0M 10/12/16 09:29 10/12/16 21:28 DC 10/12/16 12:43 100 MLS/HR Levofloxacin (Levaquin) 250 mg DAILY06 10/16/16 06:00 10/16/16 06:00 250 MG Levofloxacin/ Dextrose (LEVAQUIN 250mg PREMIX) 50 ml @ 100 mls/hr 1X ONCE 10/13/16 13:30 10/13/16 13:59 DC 10/13/16 16:25 100 MLS/HR Lidocaine HCl 20 ml STK-MED ONCE 10/12/16 15:40 10/12/16 15:41 DC Lidocaine/ Epinephrine (Xylocaine 1%-Epi 1:100,000) 2 ml 1X ONCE 10/12/16 16:30 10/12/16 16:31 DC 10/12/16 16:28 2 ML Lidocaine/Sodium Bicarbonate 20 ml 20 ml 1X ONCE 10/13/16 13:15 10/13/16 13:16 DC 10/13/16 16:23 28 ML Losartan Potassium (Cozaar) 100 mg QHS 10/10/16 21:00 10/15/16 22:31 100 MG Magnesium Sulfate/ Dextrose (Magnesium Sulfate PREMIX 2GM) 50 ml @ 25 mls/hr PRN DAILY PRN 10/10/16 13:30 10/14/16 13:04 25 MLS/HR Midazolam HCl (Versed) 2 mg 1X ONCE 10/13/16 15:00 10/13/16 15:01 DC 10/13/16 16:25 2 MG Morphine Sulfate 1 mg 1 mg PRN Q10MIN PRN 10/12/16 09:30 10/13/16 09:29 DC Multivitamins/ Calcium (Thera M Plus) 1 tab DAILY 10/10/16 14:00 10/16/16 08:45 1 TAB Non-Formulary Medication 20 meq DAILYWSUP 10/10/16 17:00 UNV Ondansetron HCl (Zofran) 4 mg STK-MED ONCE 10/12/16 12:25 10/12/16 12:26 DC Phenylephrine HCl 1 mg STK-MED ONCE 10/12/16 13:59 10/12/16 14:00 DC Potassium Chloride (Klor-Con) 20 meq DAILYWSUP 10/10/16 17:00 10/10/16 17:00 DC Prochlorperazine Edisylate (Compazine) 5 mg PACU PRN PRN 10/12/16 09:30 10/13/16 09:29 DC Propofol (Diprivan) 20 ml @ As Directed STK-MED ONCE 10/12/16 12:25 10/12/16 12:26 DC Sertraline HCl (Zoloft) 50 mg HS 10/10/16 21:00 10/15/16 22:30 50 MG Simvastatin (Zocor) 80 mg QHS 10/10/16 21:00 10/15/16 22:30 80 MG Sodium Polystyrene Sulfonate (Kayexalate) 45 gm 1X ONCE 10/10/16 13:30 10/10/16 13:44 DC 10/10/16 15:07 45 GM Sodium Chloride (Iv Sodium Chloride 0.9% 1000ml Bag) 1,000 ml @ 400 mls/hr Q2H30M PRN 10/12/16 17:48 10/13/16 05:47 DC Sodium Chloride (Normal Saline Flush) 10 ml 1X PRN PRN 10/13/16 11:00 10/13/16 18:00 DC Sodium Chloride 10 ml 10 ml 1X PRN PRN 10/12/16 18:00 10/13/16 13:06 DC Spironolactone (Aldactone) 25 mg DAILY 10/10/16 14:00 10/10/16 14:17 DC Tamsulosin HCl (Flomax) 0.4 mg HS 10/10/16 21:00 10/15/16 22:30 0.4 MG Vitamin D (Vitamin D3) 5,000 unit DAILY 10/10/16 14:00 10/16/16 08:45 5,000 UNIT Lab Laboratory Tests Test 10/16/16 04:30 White Blood Count 4.6x10^3/uL (4.0-11.0) Red Blood Count 3.08x10^6/uL (4.30-5.70) Hemoglobin 9.5g/dL (13.0-17.5) Hematocrit 28.0% (39.0-53.0) Mean Corpuscular Volume 91fL (79-100) Mean Corpuscular Hemoglobin 31pg (25-35) Mean Corpuscular Hemoglobin Concent 34g/dL (31-37) Red Cell Distribution Width 14.7% (11.5-14.5) Platelet Count 144x10^3/uL (140-400) Neutrophils (%) (Auto) 76% (31-73) Lymphocytes (%) (Auto) 11% (24-48) Monocytes (%) (Auto) 11% (0-9) Eosinophils (%) (Auto) 2% (0-3) Basophils (%) (Auto) 1% (0-3) Neutrophils # (Auto) 3.5x10^3uL (1.8-7.7) Lymphocytes # (Auto) 0.5x10^3/uL (1.0-4.8) Monocytes # (Auto) 0.5x10^3/uL (0.0-1.1) Eosinophils # (Auto) 0.1x10^3/uL (0.0-0.7) Basophils # (Auto) 0.0x10^3/uL (0.0-0.2) Sodium Level 140mmol/L (136-145) Potassium Level 3.2mmol/L (3.5-5.1) Chloride Level 106mmol/L (98-107) Carbon Dioxide Level 29mmol/L (21-32) Anion Gap 5 (6-14) Blood Urea Nitrogen 32mg/dL (8-26) Creatinine 2.1mg/dL (0.7-1.3) Estimated GFR (Cockcroft-Gault) 30.3 Glucose Level 93mg/dL (70-99) Uric Acid 6.1mg/dL (3.5-7.2) Calcium Level 11.1mg/dL (8.5-10.1) Phosphorus Level 3.2mg/dL (2.6-4.7) Lactate Dehydrogenase 334U/L (85-227) Albumin 2.4g/dL (3.4-5.0) DIAZ GUNN MD Oct 16, 2016 13:37
--- NOTE | 2016-10-16 13:49 | RAD ---
Indication staging lymphoma. Axial images through the neck and chest were obtained. The examination is limited. No IV contrast was administered. Note is made of a recent CT examination, 10/11/2016, of the abdomen and pelvis CT neck: Findings. There is some atrophy in the visualized brain. An acute or additional finding in the visualized brain is not seen and the visualized calvarium and paranasal sinuses are unremarkable apart from some spondylitic changes in the cervical spine. An acute finding in the neck is not seen. There is a soft tissue mass, compatible with adenopathy, measuring approximately 1.7 cm in greatest dimension just ventral and inferior, caudal, to the left external auditory canal. There is a possible small mass in the left lobe of the thyroid. This could be further evaluated if clinically warranted with ultrasound. An additional finding in the neck is not seen. CT chest: Findings. In acute finding in the upper abdomen or significant change relative to the referenced recent CT examination of the abdomen and pelvis is not seen. There is no significant axillary adenopathy side. There is no significant mediastinal or hilar adenopathy. There are minute bilateral pleural effusions. There is coronary artery calcification. A definite acute finding in the neck is not seen. A dominant soft tissue mass in either lung is not seen. There is some volume loss in the left lower lobe probably reflecting atelectasis or scar. There is mild to moderate collapse of a midthoracic vertebral body segment the chronicity of which is uncertain IMPRESSION: 1.7 cm soft tissue mass, the etiology of which is unclear, immediately ventral and caudal to the left external auditory canal. Possible small thyroid nodule. No significant adenopathy seen in the chest PQRS Compliance Statement: One or more of the following individualized dose reduction techniques were utilized for this examination: 1. Automated exposure control 2. Adjustment of the mA and/or kV according to patient size 3. Use of iterative reconstruction technique
[2016-10-16] MEDS ORDERED: POTASSIUM CHLORIDE 20MEQ 50 ML IV PRN ×2 (14:45)
[2016-10-16] MEDS ORDERED: MAGNESIUM SULFATE 2GM 50 ML IV PRN (14:45)
[2016-10-16 15:00] VITALS: BP 159/100
--- NOTE | 2016-10-16 15:08 | PN ---
DATE: 10/12/2016 ADDENDUM The patient was taken to the OR by Dr. Griggs for cystoscopy and for his bilateral ureteral obstruction, possible retroperitoneal mass. He noted significant hemorrhage from his prostate and postoperatively was noted to have significant coagulopathy with INR of 4.4, PT of 39.8 and APTT of 127. I was called by Dr. Griggs to administer FFP and to dialyze the patient. It is unclear to me if his ____ tendency is due to uremic ____ versus anticoagulants used until yesterday. In the setting I had an extensive discussion with the patient's family including risk of bleeding from the dialysis access site. A reversal agent for his anticoagulant has been requested from an outside facility and will be administered when available. Dialysis catheter placement as well as dialysis with administration of FFP has been ordered. I coordinated this with Dr. Johnson in the IR Department. It is felt that given his coagulopathy, he is obviously not a candidate for percutaneous nephrostomy and given his renal failure as well as the fact that he is ____, it is felt that he would benefit from dialysis. Patient's son has given permission for the same. DIAZ GUNN MD DR: OBDULIO/miranda JOB#: [id number] / [id number]
[2016-10-16 19:44] VITALS: BP 111/61
[2016-10-16] MEDS: TAMSULOSIN 0.4 MG CAP.ER.24H. PO SCH (20:19)
[2016-10-16] MEDS: SERTRALINE 50 MG TABLET. PO SCH (20:20)
[2016-10-16] MEDS: SIMVASTATIN 40 MG TABLET. PO SCH (20:20)
[2016-10-16] MEDS: LOSARTAN POTASSIUM 50 MG TABLET. PO SCH (20:20)
[2016-10-16] MEDS: EZETIMIBE 10 MG TABLET PO SCH (20:20)
[2016-10-16] MEDS: CALCITONIN,SALMON 400 UNIT/2 ML VIAL. SQ SCH (20:22)
[2016-10-16 22:44] VITALS: BP 121/73
[2016-10-17 02:19] VITALS: BP 146/90
[2016-10-17 03:59] LABS: HEMATOCRIT 27.7 % (39.0-53.0); HEMOGLOBIN 9.2 g/dL (13.0-17.5); RED BLOOD COUNT 3.02 x10^6/uL (4.30-5.70); RED CELL DISTRIBUTION WIDTH 14.4 % (11.5-14.5); WHITE BLOOD COUNT 4.8 x10^3/uL (4.0-11.0)
[2016-10-17 04:12] LABS: ALBUMIN 2.5 g/dL (3.4-5.0); CALCIUM 10.7 mg/dL (8.5-10.1); CREATININE 2.2 mg/dL (0.7-1.3); GFR 28.7; PHOSPHORUS 3.1 mg/dL (2.6-4.7); POTASSIUM 3.3 mmol/L (3.5-5.1)
[2016-10-17 05:17] LABS: UR PROTEIN RD 172.2 mg/dL (Not Estab.)
[2016-10-17] MEDS: LEVOFLOXACIN 250 MG TABLET. PO SCH (06:27)
[2016-10-17 07:00] VITALS: BP 155/97
[2016-10-17] MEDS: HYDROCODONE/APAP 5/325MG TABLET. PO PRN ×2 (07:51→21:31)
--- NOTE | 2016-10-17 09:05 | PDOC ---
SUBJECTIVE ROS YURI/ ^ Krishna Doign well, no new complaints CVS: no Orthopnea, no CP RESP: no SOB, no ZEPEDA GI: no Nausea, no Vomiting : no Dysuria, no Urgency OBJECTIVE Vital Signs Vital Signs Date Time Temp Pulse Resp B/P Pulse Ox O2 Delivery O2 Flow Rate FiO2 10/17/16 07:51 20 95 Room Air 10/17/16 07:00 97.5 80 155/97 97.5 I & 0 Intake and Output 10/17/16 07:00 Intake Total 550 ml Output Total 2075 ml Balance -1525 ml Intake Oral 550 ml Output Urine Total 225 ml Drainage Total 1850 ml PHYSICAL EXAM Physical Exam General Appearance: Awake Alert Oriented x 3 In no Distress Eyes: VIsion Unchanged Conjunctiva Normal EN: No EN Drainage Mucous Memb. moist Neck: no JVD no JVP Supple no Thyromegaly CVS: S1 S2 soft Murmur No Gallop No Rub no Edema Resp: no Rales no Rhonchi no Acc. Muscle use GI: BS +ve NO Bruit Non Tender Non Distended : no CVA tenderness; (PCNs in place) no Suprapubic Tenderness ASSESSMENT/PLAN ARF: Creat better after HD x 2 and PCNs. watch Trend with PCNs in place Hydronephrosis - URO eval appreciated, PCNs done ^Krishna - suspect due to Underlying Lymphoma; restarted Miacalcin; Unable to use Pamidronate due to Renal Insuff. Ct IVF for now. Low Mag - Replace per prn order Low K - Replace per sliding scale - add to IVF Hypoalbuminemia - suspect due to Poor PO intake Anemia: (? part of Lymphoma) defer to Dr Ross who is now on the case HTN: Current BP meds reviewed. See orders for changes. COMMENT/RELEVANT DATA Meds Current Medications Medications (Trade) Dose Ordered Sig/Selena Start Time Stop Time Status Last Admin Dose Admin Acetaminophen/ Hydrocodone Bitart 1 tab 1 tab PRN Q4HRS PRN 10/15/16 17:45 10/17/16 07:51 1 TAB Apixaban (Eliquis) 2.5 mg BID 10/12/16 21:00 10/12/16 21:00 DC Aspirin (Children'S Aspirin) 81 mg DAILY08 10/10/16 14:00 10/12/16 19:37 DC 10/12/16 08:47 81 MG Calcitonin [place] (Miacalcin) 400 unit BID 10/16/16 21:00 10/16/16 20:22 400 UNIT Carvedilol (Coreg) 25 mg BIDWMEALS 10/10/16 17:00 10/16/16 17:54 25 MG Dabigatran (Pradaxa) 75 mg BID 10/11/16 09:00 10/12/16 14:56 DC 10/11/16 10:03 75 MG Dexamethasone Sodium Phosphate (Decadron) 20 mg STK-MED ONCE 10/12/16 12:25 10/12/16 12:26 DC Diphenhydramine HCl (Benadryl) 25 mg 1X PRN PRN 10/12/16 18:00 10/13/16 13:06 DC EZETIMIBE (Zetia) 10 mg HS 10/10/16 21:00 10/16/16 20:20 10 MG Fenofibrate (Lofibra) 134 mg DAILY 10/10/16 14:00 10/16/16 08:46 134 MG Fentanyl Citrate (Fentanyl 2ml Vial) 50 mcg PRN Q2HR PRN 10/14/16 01:30 10/14/16 20:58 50 MCG Gelatin (Gelfoam Size 12-7mm) 1 each STK-MED ONCE 10/13/16 14:44 10/13/16 14:45 DC Heparin Sodium (Porcine) 2,400 unit 1X ONCE 10/12/16 16:30 10/12/16 16:31 DC 10/12/16 16:27 2,400 UNIT Heparin Sodium/ Sodium Chloride 6 unit 1X ONCE 10/12/16 16:30 10/12/16 16:31 DC 10/12/16 16:27 6 UNIT Hydromorphone HCl (Dilaudid) 0.5 mg PRN Q10MIN PRN 10/12/16 09:30 10/13/16 09:29 DC Idarucizumab (Praxbind) 5 gm 1X ONCE 10/12/16 16:30 10/12/16 16:31 DC 10/12/16 16:48 5 GM Info (Anti-Coagulation Monitoring By Pharmacy) 1 each PRN DAILY PRN 10/10/16 14:45 10/13/16 09:44 DC 10/11/16 08:28 1 EACH Info (PHARMACY MONITORING -- do not chart) 1 each PRN DAILY PRN 10/13/16 11:00 10/13/16 11:05 DC Iohexol 50 ml 50 ml STK-MED ONCE 10/12/16 11:38 10/12/16 11:39 DC Lactated Ringer's (Iv Lactated Ringers) 1,000 ml @ 0 mls/hr Q0M 10/12/16 09:29 10/12/16 21:28 DC 10/12/16 12:43 100 MLS/HR Levofloxacin (Levaquin) 250 mg DAILY06 10/16/16 06:00 10/17/16 06:27 250 MG Levofloxacin/ Dextrose (LEVAQUIN 250mg PREMIX) 50 ml @ 100 mls/hr 1X ONCE 10/13/16 13:30 10/13/16 13:59 DC 10/13/16 16:25 100 MLS/HR Lidocaine HCl 20 ml STK-MED ONCE 10/12/16 15:40 10/12/16 15:41 DC Lidocaine/ Epinephrine (Xylocaine 1%-Epi 1:100,000) 2 ml 1X ONCE 10/12/16 16:30 10/12/16 16:31 DC 10/12/16 16:28 2 ML Lidocaine/Sodium Bicarbonate 20 ml 20 ml 1X ONCE 10/13/16 13:15 10/13/16 13:16 DC 10/13/16 16:23 28 ML Losartan Potassium (Cozaar) 100 mg QHS 10/10/16 21:00 10/16/16 20:20 100 MG Magnesium Sulfate/ Dextrose 50 ml @ 25 mls/hr PRN DAILY PRN 10/16/16 14:45 Magnesium Sulfate/ Dextrose (Magnesium Sulfate PREMIX 2GM) 50 ml @ 25 mls/hr PRN DAILY PRN 10/10/16 13:30 10/16/16 16:08 DC 10/14/16 13:04 25 MLS/HR Midazolam HCl (Versed) 2 mg 1X ONCE 10/13/16 15:00 10/13/16 15:01 DC 10/13/16 16:25 2 MG Morphine Sulfate 1 mg 1 mg PRN Q10MIN PRN 10/12/16 09:30 10/13/16 09:29 DC Multivitamins/ Calcium (Thera M Plus) 1 tab DAILY 10/10/16 14:00 10/16/16 08:45 1 TAB Non-Formulary Medication 20 meq DAILYWSUP 10/10/16 17:00 UNV Ondansetron HCl (Zofran) 4 mg STK-MED ONCE 10/12/16 12:25 10/12/16 12:26 DC Phenylephrine HCl 1 mg STK-MED ONCE 10/12/16 13:59 10/12/16 14:00 DC Potassium Chloride (KCl Premix 20meq) 50 ml @ 50 mls/hr PRN Q2HR PRN 10/16/16 14:45 Potassium Chloride (Klor-Con) 20 meq DAILYWSUP 10/10/16 17:00 10/10/16 17:00 DC Prochlorperazine Edisylate (Compazine) 5 mg PACU PRN PRN 10/12/16 09:30 10/13/16 09:29 DC Propofol (Diprivan) 20 ml @ As Directed STK-MED ONCE 10/12/16 12:25 10/12/16 12:26 DC Sertraline HCl (Zoloft) 50 mg HS 10/10/16 21:00 10/16/16 20:20 50 MG Simvastatin (Zocor) 80 mg QHS 10/10/16 21:00 10/16/16 20:20 80 MG Sodium Polystyrene Sulfonate (Kayexalate) 45 gm 1X ONCE 10/10/16 13:30 10/10/16 13:44 DC 10/10/16 15:07 45 GM Sodium Chloride (Iv Sodium Chloride 0.9% 1000ml Bag) 1,000 ml @ 400 mls/hr Q2H30M PRN 10/12/16 17:48 10/13/16 05:47 DC Sodium Chloride (Normal Saline Flush) 10 ml 1X PRN PRN 10/13/16 11:00 10/13/16 18:00 DC Sodium Chloride 10 ml 10 ml 1X PRN PRN 10/12/16 18:00 10/13/16 13:06 DC Spironolactone (Aldactone) 25 mg DAILY 10/10/16 14:00 10/10/16 14:17 DC Tamsulosin HCl (Flomax) 0.4 mg HS 10/10/16 21:00 10/16/16 20:19 0.4 MG Vitamin D (Vitamin D3) 5,000 unit DAILY 10/10/16 14:00 10/16/16 08:45 5,000 UNIT Lab Laboratory Tests Test 10/16/16 11:15 10/16/16 18:07 10/17/16 03:45 Urine Protein 172.2mg/dL (Not Estab.) Urine Random Sodium 46mmol/L (Not Estab.) Urine Creatinine 95.2mg/dL (Not Estab.) Urine Protein/Creatinine Ratio 1809mg/g creat (0-200) Potassium Level 3.4mmol/L (3.5-5.1) 3.3mmol/L (3.5-5.1) White Blood Count 4.8x10^3/uL (4.0-11.0) Red Blood Count 3.02x10^6/uL (4.30-5.70) Hemoglobin 9.2g/dL (13.0-17.5) Hematocrit 27.7% (39.0-53.0) Mean Corpuscular Volume 92fL (79-100) Mean Corpuscular Hemoglobin 30pg (25-35) Mean Corpuscular Hemoglobin Concent 33g/dL (31-37) Red Cell Distribution Width 14.4% (11.5-14.5) Platelet Count 154x10^3/uL (140-400) Sodium Level 142mmol/L (136-145) Chloride Level 105mmol/L (98-107) Carbon Dioxide Level 31mmol/L (21-32) Anion Gap 6 (6-14) Blood Urea Nitrogen 33mg/dL (8-26) Creatinine 2.2mg/dL (0.7-1.3) Estimated GFR (Cockcroft-Gault) 28.7 Glucose Level 96mg/dL (70-99) Calcium Level 10.7mg/dL (8.5-10.1) Phosphorus Level 3.1mg/dL (2.6-4.7) Magnesium Level 1.5mg/dL (1.8-2.4) Albumin 2.5g/dL (3.4-5.0) DIAZ GUNN MD Oct 17, 2016 09:05
--- NOTE | 2016-10-17 09:57 | PDOC ---
PROGRESS NOTES Subjective Subjective Pt awake and pleasant. States he has a poor appetite, however continues to eat and drink without difficulty. Objective Objective Pt awake and alert. NAD. VSS. Afebrile. Mass noted on CT head and neck not palpable upon PE. Vital Signs Date Time Temp Pulse Resp B/P Pulse Ox O2 Delivery O2 Flow Rate FiO2 10/17/16 07:51 20 95 Room Air 10/17/16 07:00 97.5 80 155/97 97.5 10/15/16 18:14 2.0 Intake and Output 10/17/16 07:00 Intake Total 550 ml Output Total 2075 ml Balance -1525 ml Intake Oral 550 ml Output Urine Total 225 ml Drainage Total 1850 ml Assessment Assessment Problems Medical Problems: (1) Acute renal failure (ARF) Status: Acute Plan Plan of Care 1. Retroperitoneal mass, suspicious for lymphoma --CT abdomen: Large soft tissue mass encasing the infrarenal abdominal aorta and iliac arteries, left greater than right, as described above. Diagnostic considerations include severe retroperitoneal fibrosis or a neoplastic etiology such as lymphoma or metastatic disease. -Awaiting final pathology results -Oncology consulting -PAC placement today -CT head and neck: " 1.7 cm soft tissue mass, the etiology of which is unclear, immediately ventral and caudal to the left external auditory canal. Possible small thyroid nodule. No significant adenopathy seen in the chest." 2. Acute renal failure -Creat 5.5 upon admission, 2.1 this am. Baseline 1.4 -IVF -Renal US: Left greater than right hydronephrosis with small left renal cyst -Renal team consulting -Coleman placed -Bilat nephrostomy tubes placed -Uretal stenting attempted on 10/12, unsuccessful d/t prostate bleeding. Prodaxa stopped and reversal agent given. Hgb 9.2 this am, stable. -Will attempt to advance nephrostomy tubes into bladder today 2. Hyperkalemia, now hypokalemia -K 5.9 upon admission, 5.0 this am following Kayexalate dosing. 3.2 this am. Prn KCl administered -Recheck BMP in am 3. Hypercalcemia -Ca 14.4 upon admission, 11.9 this am following Miacalcin x3. 10.7 this am -thought to be secondary to malignancy 4. 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 Probable associated spinal stenosis at L2-3 due to retropulsion at the L2 fracture site. Moderate multilevel degenerative change. Distal abdominal aortic aneurysm. 5. Anemia -Hgb 11.8 upon admission, 9.2 this am -TIBC 283, Iron 57, Ferritin 752 -Recheck CBC in am 6. HTN -Restart home meds Comment Review of Relevant I have reviewed the following items juan (where applicable) has been applied. Labs Laboratory Tests Test 10/16/16 04:30 10/16/16 11:15 10/16/16 18:07 10/17/16 03:45 White Blood Count 4.6x10^3/uL (4.0-11.0) 4.8x10^3/uL (4.0-11.0) Red Blood Count 3.08x10^6/uL (4.30-5.70) 3.02x10^6/uL (4.30-5.70) Hemoglobin 9.5g/dL (13.0-17.5) 9.2g/dL (13.0-17.5) Hematocrit 28.0% (39.0-53.0) 27.7% (39.0-53.0) Mean Corpuscular Volume 91fL (79-100) 92fL (79-100) Mean Corpuscular Hemoglobin 31pg (25-35) 30pg (25-35) Mean Corpuscular Hemoglobin Concent 34g/dL (31-37) 33g/dL (31-37) Red Cell Distribution Width 14.7% (11.5-14.5) 14.4% (11.5-14.5) Platelet Count 144x10^3/uL (140-400) 154x10^3/uL (140-400) Neutrophils (%) (Auto) 76% (31-73) Lymphocytes (%) (Auto) 11% (24-48) Monocytes (%) (Auto) 11% (0-9) Eosinophils (%) (Auto) 2% (0-3) Basophils (%) (Auto) 1% (0-3) Neutrophils # (Auto) 3.5x10^3uL (1.8-7.7) Lymphocytes # (Auto) 0.5x10^3/uL (1.0-4.8) Monocytes # (Auto) 0.5x10^3/uL (0.0-1.1) Eosinophils # (Auto) 0.1x10^3/uL (0.0-0.7) Basophils # (Auto) 0.0x10^3/uL (0.0-0.2) Sodium Level 140mmol/L (136-145) 142mmol/L (136-145) Potassium Level 3.2mmol/L (3.5-5.1) 3.4mmol/L (3.5-5.1) 3.3mmol/L (3.5-5.1) Chloride Level 106mmol/L (98-107) 105mmol/L (98-107) Carbon Dioxide Level 29mmol/L (21-32) 31mmol/L (21-32) Anion Gap 5 (6-14) 6 (6-14) Blood Urea Nitrogen 32mg/dL (8-26) 33mg/dL (8-26) Creatinine 2.1mg/dL (0.7-1.3) 2.2mg/dL (0.7-1.3) Estimated GFR (Cockcroft-Gault) 30.3 28.7 Glucose Level 93mg/dL (70-99) 96mg/dL (70-99) Uric Acid 6.1mg/dL (3.5-7.2) Calcium Level 11.1mg/dL (8.5-10.1) 10.7mg/dL (8.5-10.1) Phosphorus Level 3.2mg/dL (2.6-4.7) 3.1mg/dL (2.6-4.7) Lactate Dehydrogenase 334U/L (85-227) Albumin 2.4g/dL (3.4-5.0) 2.5g/dL (3.4-5.0) Urine Protein 172.2mg/dL (Not Estab.) Urine Random Sodium 46mmol/L (Not Estab.) Urine Creatinine 95.2mg/dL (Not Estab.) Urine Protein/Creatinine Ratio 1809mg/g creat (0-200) Magnesium Level 1.5mg/dL (1.8-2.4) Laboratory Tests Test 10/16/16 11:15 10/16/16 18:07 10/17/16 03:45 Urine Protein 172.2mg/dL (Not Estab.) Urine Random Sodium 46mmol/L (Not Estab.) Urine Creatinine 95.2mg/dL (Not Estab.) Urine Protein/Creatinine Ratio 1809mg/g creat (0-200) Potassium Level 3.4mmol/L (3.5-5.1) 3.3mmol/L (3.5-5.1) White Blood Count 4.8x10^3/uL (4.0-11.0) Red Blood Count 3.02x10^6/uL (4.30-5.70) Hemoglobin 9.2g/dL (13.0-17.5) Hematocrit 27.7% (39.0-53.0) Mean Corpuscular Volume 92fL (79-100) Mean Corpuscular Hemoglobin 30pg (25-35) Mean Corpuscular Hemoglobin Concent 33g/dL (31-37) Red Cell Distribution Width 14.4% (11.5-14.5) Platelet Count 154x10^3/uL (140-400) Sodium Level 142mmol/L (136-145) Chloride Level 105mmol/L (98-107) Carbon Dioxide Level 31mmol/L (21-32) Anion Gap 6 (6-14) Blood Urea Nitrogen 33mg/dL (8-26) Creatinine 2.2mg/dL (0.7-1.3) Estimated GFR (Cockcroft-Gault) 28.7 Glucose Level 96mg/dL (70-99) Calcium Level 10.7mg/dL (8.5-10.1) Phosphorus Level 3.1mg/dL (2.6-4.7) Magnesium Level 1.5mg/dL (1.8-2.4) Albumin 2.5g/dL (3.4-5.0) Medications Current Medications Sodium Chloride 1,000 ml @ 100 mls/hr Q10H IV Last administered on 10/11/16t 08 :49; Start 10/10/16 at 11:00; Stop 10/11/16 at 21:27; Status DC Magnesium Sulfate/ Dextrose (Magnesium Sulfate PREMIX 2GM) 50 ml @ 25 mls/hr PRN DAILY PRN IV for Mag < 1.7 on am labs Last administered on 10/14/16 13:04; Start 10/10/16 at 13:30; Stop 10/16/16 at 16:08; Status DC Sodium Polystyrene Sulfonate (Kayexalate) 45 gm 1X ONCE PO Last administered on 10/10/16 15:07; Start 10/10/16 at 13:30; Stop 10/10/16 at 13:44; Status DC Aspirin (Children'S Aspirin) 81 mg DAILY08 PO Last administered on 10/12/16 08: 47; Start 10/10/16 at 14:00; Stop 10/12/16 at 19:37; Status DC Dabigatran (Pradaxa) 150 mg BID PO Last administered on 10/10/16 21:48; Start 10/10/16 at 21:00; Stop 10/11/16 at 08:25; Status DC Potassium Chloride (Klor-Con) 20 meq DAILYWSUP PO ; Start 10/10/16 at 17:00; Stop 10/10/16 at 17:00; Status DC Sertraline HCl (Zoloft) 50 mg HS PO Last administered on 10/16/16 20:20; Start 10/10/16 at 21:00 Spironolactone (Aldactone) 25 mg DAILY PO ; Start 10/10/16 at 14:00; Stop at 14:17; Status DC Tamsulosin HCl (Flomax) 0.4 mg HS PO Last administered on 10/16/16 20:19; Start 10/10/16 at 21:00 Carvedilol (Coreg) 25 mg BIDWMEALS PO Last administered on 10/16/16 17:54; Start 10/10/16 at 17:00 Vitamin D (Vitamin D3) 5,000 unit DAILY PO Last administered on 10/16/16 08:45 ; Start 10/10/16 at 14:00 EZETIMIBE (Zetia) 10 mg DAILY PO ; Start 10/10/16 at 14:00; Stop 10/10/16 at 21: 00; Status Cancel Fenofibrate (Lofibra) 134 mg DAILY PO Last administered on 10/16/16 08:46; Start 10/10/16 at 14:00 Losartan Potassium (Cozaar) 100 mg QHS PO Last administered on 10/16/16 20:20; Start 10/10/16 at 21:00 Multivitamins/ Calcium (Thera M Plus) 1 tab DAILY PO Last administered on 08:45; Start 10/10/16 at 14:00 Non-Formulary Medication 20 meq DAILYWSUP PO ; Start 10/10/16 at 17:00; Status UNV Simvastatin (Zocor) 80 mg QHS PO Last administered on 10/16/16 20:20; Start at 21:00 Calcitonin Gordon (Miacalcin) 400 unit BID SQ Last administered on 10/12/16 08: 51; Start 10/10/16 at 21:00; Stop 10/12/16 at 23:52; Status DC Info (Anti-Coagulation Monitoring By Pharmacy) 1 each PRN DAILY PRN MC SEE COMMENTS Last administered on 10/11/16 08:28; Start 10/10/16 at 14:45; Stop 10/13 at 09:44; Status DC Ondansetron HCl (Zofran) 4 mg PRN Q6HRS PRN IV NAUSEA/VOMITING; Start 10/10/16 at 15:30 EZETIMIBE (Zetia) 10 mg HS PO Last administered on 10/16/16 20:20; Start at 21:00 Dabigatran (Pradaxa) 75 mg BID PO Last administered on 10/11/16 10:03; Start at 09:00; Stop 10/12/16 at 14:56; Status DC Ondansetron HCl (Zofran) 4 mg PRN Q6HRS PRN IV Nausea; Start 10/12/16 at 09:30; Stop 10/13/16 at 09:29; Status DC Fentanyl Citrate (Fentanyl 2ml Vial) 25 mcg PRN Q5MIN PRN IV MILD PAIN; Start 10/12/16 at 09:30; Stop 10/13/16 at 09:29; Status DC Fentanyl Citrate (Fentanyl 2ml Vial) 50 mcg PRN Q5MIN PRN IV MODERATE PAIN; Start 10/12/16 at 09:30; Stop 10/13/16 at 09:29; Status DC Morphine Sulfate 1 mg 1 mg PRN Q10MIN PRN IV SEVERE PAIN; Start 10/12/16 at 09: 30; Stop 10/13/16 at 09:29; Status DC Lactated Ringer's (Iv Lactated Ringers) 1,000 ml @ 0 mls/hr Q0M IV Last administered on 10/12/16 12:43; Start 10/12/16 at 09:29; Stop 10/12/16 at 21:28; Status DC Lidocaine HCl 2 ml 1X PRN PRN ID IV START; Start 10/12/16 at 09:30; Stop at 09:29; Status DC Hydromorphone HCl (Dilaudid) 0.5 mg PRN Q10MIN PRN IV SEV PAIN,Second choice; Start 10/12/16 at 09:30; Stop 10/13/16 at 09:29; Status DC Prochlorperazine Edisylate 5 mg 5 mg PACU PRN PRN IV NAUSEA; Start 10/12/16 at 09:30; Stop 10/13/16 at 09:29; Status DC Levofloxacin/ Dextrose (LEVAQUIN 250mg PREMIX) 50 ml @ 50 mls/hr Q24H IV Last administered on 10/15/16 08:39; Start 10/12/16 at 10:00; Stop 10/15/16 at 15:52; Status DC Iohexol 50 ml 50 ml STK-MED ONCE .ROUTE ; Start 10/12/16 at 11:38; Stop 10/12/16 at 11:39; Status DC Propofol (Diprivan) 20 ml @ As Directed STK-MED ONCE IV ; Start 10/12/16 at 12:25 ; Stop 10/12/16 at 12:26; Status DC Lidocaine HCl 100 mg STK-MED ONCE .ROUTE ; Start 10/12/16 at 12:25; Stop 10/12/16 at 12:26; Status DC Dexamethasone Sodium Phosphate (Decadron) 20 mg STK-MED ONCE .ROUTE ; Start 10/12 at 12:25; Stop 10/12/16 at 12:26; Status DC Ondansetron HCl (Zofran) 4 mg STK-MED ONCE .ROUTE ; Start 10/12/16 at 12:25; Stop 10/12/16 at 12:26; Status DC Fentanyl Citrate (Fentanyl 2ml Vial) 100 mcg STK-MED ONCE .ROUTE ; Start at 12:25; Stop 10/12/16 at 12:26; Status DC Phenylephrine HCl 1 mg STK-MED ONCE IV ; Start 10/12/16 at 13:59; Stop 10/12/16 at 14:00; Status DC Apixaban (Eliquis) 2.5 mg BID PO ; Start 10/12/16 at 21:00; Stop 10/12/16 at 21:00 ; Status DC Idarucizumab (Praxbind) 5 gm 1X ONCE IV Last administered on 10/12/16 16:48; Start 10/12/16 at 16:30; Stop 10/12/16 at 16:31; Status DC Heparin Sodium (Porcine) 10,000 unit STK-MED ONCE .ROUTE ; Start 10/12/16 at 15: 40; Stop 10/12/16 at 15:41; Status DC Lidocaine HCl 20 ml 20 ml STK-MED ONCE .ROUTE ; Start 10/12/16 at 15:40; Stop 10/12/16 at 15:41; Status DC Heparin Sodium/ Sodium Chloride 500 ml @ As Directed STK-MED ONCE .ROUTE ; Start 10/12/16 at 15:40; Stop 10/12/16 at 15:41; Status DC Lidocaine/ Epinephrine (Xylocaine 1%-Epi 1:100,000) 20 ml STK-MED ONCE .ROUTE ; Start 10/12/16 at 15:43; Stop 10/12/16 at 15:44; Status DC Heparin Sodium (Porcine) 2,400 unit 1X ONCE INT CAT Last administered on 16:27; Start 10/12/16 at 16:30; Stop 10/12/16 at 16:31; Status DC Heparin Sodium/ Sodium Chloride 6 unit 1X ONCE IV Last administered on 16:27; Start 10/12/16 at 16:30; Stop 10/12/16 at 16:31; Status DC Lidocaine/ Epinephrine 2 ml 2 ml 1X ONCE IJ Last administered on 10/12/16 16: 28; Start 10/12/16 at 16:30; Stop 10/12/16 at 16:31; Status DC Sodium Chloride (Iv Sodium Chloride 0.9% 1000ml Bag) 1,000 ml @ 1,000 mls/hr Q1H PRN IV hypotension; Start 10/12/16 at 17:48; Stop 10/12/16 at 23:47; Status DC Diphenhydramine HCl (Benadryl) 25 mg 1X PRN PRN IV ITCHING; Start 10/12/16 at 18 :00; Stop 10/13/16 at 13:06; Status DC Diphenhydramine HCl (Benadryl) 25 mg 1X PRN PRN IV ITCHING; Start 10/12/16 at 18 :00; Stop 10/13/16 at 13:06; Status DC Sodium Chloride (Normal Saline Flush) 10 ml 1X PRN PRN IV AP catheter pack; Start 10/12/16 at 18:00; Stop 10/13/16 at 13:06; Status DC Sodium Chloride 10 ml 10 ml 1X PRN PRN IV ACETYLENE TORCH BURNER catheter pack; Start 10/12/16 at 18 :00; Stop 10/13/16 at 13:06; Status DC Sodium Chloride (Iv Sodium Chloride 0.9% 1000ml Bag) 1,000 ml @ 400 mls/hr Q2H30M PRN IV PATENCY; Start 10/12/16 at 17:48; Stop 10/13/16 at 05:47; Status DC Sodium Chloride (Normal Saline Flush) 10 ml 1X PRN PRN IV AP catheter pack; Start 10/13/16 at 11:00; Stop 10/13/16 at 18:00; Status DC Sodium Chloride (Normal Saline Flush) 10 ml 1X PRN PRN IV ACETYLENE TORCH BURNER catheter pack; Start 10/13/16 at 11:00; Stop 10/13/16 at 18:00; Status DC Info (PHARMACY MONITORING -- do not chart) 1 each PRN DAILY PRN MC SEE COMMENTS ; Start 10/13/16 at 11:00 Info (PHARMACY MONITORING -- do not chart) 1 each PRN DAILY PRN MC SEE COMMENTS ; Start 10/13/16 at 11:00; Stop 10/13/16 at 11:05; Status DC Lidocaine/Sodium Bicarbonate 20 ml 20 ml 1X ONCE IJ Last administered on t 16:23; Start 10/13/16 at 13:15; Stop 10/13/16 at 13:16; Status DC Levofloxacin/ Dextrose (LEVAQUIN 250mg PREMIX) 50 ml @ 100 mls/hr 1X ONCE IV Last administered on 10/13/16 16:25; Start 10/13/16 at 13:30; Stop 10/13/16 at 13: 59; Status DC Midazolam HCl (Versed) 2 mg STK-MED ONCE .ROUTE ; Start 10/13/16 at 14:03; Stop 10/13/16 at 14:04; Status DC Fentanyl Citrate (Fentanyl 2ml Vial) 100 mcg STK-MED ONCE .ROUTE ; Start at 14:03; Stop 10/13/16 at 14:04; Status DC Gelatin (Gelfoam Size 12-7mm) 1 each STK-MED ONCE .ROUTE ; Start 10/13/16 at 14: 44; Stop 10/13/16 at 14:45; Status DC Midazolam HCl (Versed) 2 mg 1X ONCE IV Last administered on 10/13/16 16:25; Start 10/13/16 at 15:00; Stop 10/13/16 at 15:01; Status DC Fentanyl Citrate (Fentanyl 2ml Vial) 100 mcg 1X ONCE IV Last administered on 16:26; Start 10/13/16 at 15:00; Stop 10/13/16 at 15:01; Status DC Fentanyl Citrate (Fentanyl 2ml Vial) 50 mcg PRN Q2HR PRN IV SEVERE PAIN Last administered on 10/14/16 20:58; Start 10/14/16 at 01:30 Levofloxacin (Levaquin) 250 mg DAILY06 PO Last administered on 10/17/16 06:27; Start 10/16/16 at 06:00 Acetaminophen/ Hydrocodone Bitart 1 tab 1 tab PRN Q4HRS PRN PO PAIN Last administered on 10/17/16 07:51; Start 10/15/16 at 17:45 Magnesium Sulfate/ Dextrose 50 ml @ 25 mls/hr PRN DAILY PRN IV for Mag < 1.7 on am labs; Start 10/16/16 at 14:45 Potassium Chloride 50 ml @ 50 mls/hr PRN Q6HRS PRN IV For K < 3.7; Start at 14:45 Potassium Chloride (KCl Premix 20meq) 50 ml @ 50 mls/hr PRN Q2HR PRN IV total of 40mEq for K < 3.5; Start 10/16/16 at 14:45 Calcitonin Gordon 400 unit 400 unit BID SQ Last administered on 10/16/16t 20:22 ; Start 10/16/16 at 21:00 Potassium Chloride 40 meq/ Sodium Chloride 1,020 ml @ 100 mls/hr [id number] IV ; Start 10/17/16 at 09:15; Stop 10/18/16 at 05:38 Sodium Chloride (Iv Sodium Chloride 0.9% 1000ml Bag) 1,000 ml @ 100 mls/hr Q10H IV ; Start 10/18/16 at 06:00 Active Scripts Active Reported Fenofibrate (Fenofibrate Nanocrystallized) 145 Mg Tablet 1 Tab PO DAILYWLUN Potassium Chloride 20 Meq Tablet.er 20 Meq PO DAILYWSUP Calcium (Calcium Carbonate) 600 Mg Tablet 600 Mg PO Vytorin 10-80 Mg Tablet (Ezetimibe/Simvastatin) 1 Each Tablet 1 Each PO HS Multi-Vitamin Daily (Multivitamin) 1 Each Tablet 1 Each PO DAILY Vitamin D3 (Cholecalciferol (Vitamin D3)) 5,000 Unit Tablet 1 Tab PO DAILY Pradaxa (Dabigatran Etexilate Mesylate) 150 Mg Capsule 1 Cap PO BID Zoloft (Sertraline Hcl) 50 Mg Tablet 1 Tab PO HS Tamsulosin Hcl 0.4 Mg Cap.er.24h 1 Cap PO HS Losartan Potassium 100 Mg Tablet 100 Mg PO HS Klor-Con M20 (Potassium Chloride) 20 Meq Tab.er.prt 1 Tab PO DAILY Spironolactone 25 Mg Tablet 1 Tab PO DAILY Aspirin 81 Mg Tab.chew 1 Tab PO DAILY Carvedilol 25 Mg Tablet 1 Tab PO BID Vitals/I & O Vital Sign - Last 24 Hours 10/16/16 10/16/16 10/16/16 10/16/16 11:00 15:00 15:21 16:21 Temp 97.5 97.9 97.5 97.9 Pulse 70 83 Resp 18 16 18 18 B/P 128/81 159/100 Pulse Ox 93 94 O2 Delivery Room Air Room Air Room Air Room Air 10/16/16 10/16/16 10/16/16 10/16/16 17:54 19:30 19:44 20:20 Temp 98.3 98.3 Pulse 83 85 85 Resp 18 B/P 159/100 111/61 111/61 Pulse Ox 92 O2 Delivery Room Air Room Air 10/16/16 10/17/16 10/17/16 10/17/16 22:44 02:19 07:00 07:51 Temp 98.0 98.5 97.5 98.0 98.5 97.5 Pulse 84 91 80 Resp 16 20 16 20 B/P 121/73 146/90 155/97 Pulse Ox 92 95 95 95 O2 Delivery Room Air Room Air Room Air Room Air Intake and Output 10/16/16 10/16/16 10/17/16 15:00 23:00 07:00 Intake Total 50 ml 500 ml Output Total 2075 ml Balance 50 ml -1575 ml AYALA LYMAN MD Oct 17, 2016 09:57
[2016-10-17] MEDS: FENOFIBRATE,MICRONIZED 134 MG CAPSULE PO SCH (10:10)
[2016-10-17] MEDS: POTASSIUM CHLORIDE 40 MEQ in IV NORMAL SALINE 1000ML BAG 1,000 ML IV SCH ×2 (10:10→22:37)
[2016-10-17] MEDS: MULTIVITAMIN with MINERAL TABLET. PO SCH (10:11)
[2016-10-17] MEDS: CHOLECALCIFEROL (VITAMIN D3) 5,000 UNIT CAPSULE PO SCH (10:11)
[2016-10-17] MEDS: CARVEDILOL 12.5 MG TABLET PO SCH ×2 (10:11→17:10)
[2016-10-17] MEDS: CALCITONIN,SALMON 400 UNIT/2 ML VIAL. SQ SCH ×2 (10:12→21:35)
[2016-10-17 11:00] VITALS: BP_SYST 127; BP_SYST 147; BP_DIAS 52; BP_DIAS 89
--- NOTE | 2016-10-17 13:18 | PDOC ---
Provider Note Provider Note DATE OF f/u: 10/17/2016 c/c - :f/u of Retroperitoneal mass in a patient has a history of lymphoma, hypercalcemia, bleeding after attempted cystoscopy and stent on 10/12/2016, status post Praxbind one dose on 10/12/2016. HISTORY OF PRESENT ILLNESS: The patient is an 81-year-old gentleman who has a history of melanoma treated by Dermatology several years ago and he had surgical resection. He is being followed by Dermatology for surveillance and a routine lab revealed elevated LDH level. He was then referred to Dr. Abisai Chung who is his primary care physician for further workup. Complete metabolic panel was done and he was noted to be in renal failure with a creatinine of 3.47 on 10/09/2016. He was also noted to have hypercalcemia of 13.5, LDH was 393. He was admitted to [facility] on 10/10/2016 for further evaluation. At the time of admission on 10/10/2016, his potassium was 5.9 with a creatinine of 5.5 and a calcium of 14.4. Nephrology was consulted. Intact PTH level was noted to be normal at 21, serum protein electrophoresis was normal, immunofixation was normal, kappa light chains and lambda light chains were elevated consistent with renal failure. He underwent an ultrasound on 10/10/2016 which revealed hydronephrosis, left greater than right along with a small renal cyst. CT scan of the abdomen and pelvis on 10/11/2016 revealed large soft tissue mass measuring 12.7 cm in width and 7.7 cm in AP dimension at the level of the aortic bifurcation. It was encased in the infrarenal abdominal aorta and the iliac arteries. Retroperitoneal fibrosis versus lymphoma or metastatic disease was in the differential diagnosis. 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 I was asked to see the patient for further evaluation of retroperitoneal mass. On 10/12/2016, the patient underwent cystoscopy and attempted stent placement and fulguration of hemorrhagic prostate by Dr. Arik Griggs. He had about 250 mL of blood loss and hence the stents were not placed. The patient had received Pradaxa on 10/11/2016 and hence he was treated with Praxbind at 4:30 p.m. on 10/12/2016. His urine is now clear and the bleeding has resolved. His INR on 10/12/2016 was 4.4. s/p nephrostomy tube placement and bx of abdominal mass 10/13/16. This revealed diffuse large B cell lymphoma. I also discussed the case in detail with Dr. Abisai Chung. PAST MEDICAL HISTORY: Melanoma, chronic kidney disease with a creatinine of 1.4 at baseline, abdominal aortic aneurysm 3.5 cm, atrial fibrillation for which he takes Pradaxa, benign prostatic hypertrophy, atherosclerotic heart disease, depression. REVIEW OF SYSTEMS: 12-point ROS done. He feels better. Hematuria better. PHYSICAL EXAMINATION: GENERAL APPEARANCE: The patient is an 81-year-old gentleman who is in no acute cardiorespiratory distress. CHEST: Bilaterally symmetrical. No crepitations or rhonchi heard. HEART: S1, S2 normal. ABDOMEN: Soft, nontender. No hepatosplenomegaly. CENTRAL NERVOUS SYSTEM: No focal neurological deficits. LABORATORY DATA: On 10/12/2016, PT 39.8, INR 4.4, PTT 127. CBC on 10/13/2016 revealed a WBC of 5.9, hemoglobin 9.4, platelet count 135. Prior CBC on 10/10/2016 revealed a hemoglobin of 11.8. Chemistry panel from this admission on 10/10/2016 revealed normal serum protein electrophoresis, no M-spike, immunofixation does not reveal any monoclonal gammopathy, total protein 5.8, albumin 2.5. PTH normal at 21, IgG 784, IgA 207, IgM 67. [place] lambda light chain ratio is 1.79. Free kappa light chain 49.87, free lambda light chain 27.84. IMPRESSION AND PLAN: 1. Large abdominal mass encasing the infrarenal abdominal aorta measuring 12.7 cm concerning for retroperitoneal fibrosis versus malignancy. I discussed with Dr. Johnson and with Dr. Abisai Chung. s/p CT-guided biopsy of this mass 10/13/16, I d/w Dr Patel, and received verbal confirmation that this is diffuse large B cell lymphoma. CT neck/chest revealed cervical LN. Echo reveals normal EF. Bone scan pending. Plan portacath, bone marrow bx, Start chemo with CHOP+R 10/18/16. I d/w Dr Chung and Dr Reilly and Dr Perez. Start allopurinol prophylaxis (normal uric acid). 2. Hematuria/bleeding after procedure on 10/12/2016. He underwent cystoscopy and attempted stent placement which was unsuccessful. He had received Pradaxa on 10/11/2016 and hence he received Praxbind on 10/12/2016 at 4:30 p.m. The bleeding has now resolved 3. Coagulopathy due to Pradaxa improved after Praxbind infusion on 10/12/2016. 4. Renal failure. Appreciate Nephrology consultation, etiology thought to be due to bilateral hydronephrosis from abdominal mass. 5. Paget's disease. He also has a T6, L2 compression fracture, thought to be due to Paget's disease. 6. Melanoma diagnosed several years ago, being followed by Dermatology. 7. Serum protein electrophoresis and immunofixation is negative. There is no clinical evidence to suggest myeloma. 8. Hypercalcemia could be secondary to underlying malignancy. Continue miacalcin. JENNIFER QURESHI MD Oct 17, 2016 13:18
--- NOTE | 2016-10-17 14:26 | RAD ---
Indication abnormal bone findings on recent CT. Assess for potential widespread metastatic disease. Whole body static images were obtained following the administration of 25 mCi of technetium labeled MDP. No prior bone scan imaging is available. Note is made of the CT examination of the abdomen and pelvis 10/11/2016. There is moderately intense uptake in the left hemipelvis and sacrum compatible with the findings on CT and again suggestive of paget's disease. Intense uptake is seen along the left clavicle also suggestive of paget's disease. The CT examination of 10/16/2016 demonstrates a sclerotic bone throughout the visualized left clavicle compatible with paget's disease There is intense uptake at L2 compatible with the known compression fracture at this level. The intensity of the uptake would suggest that this is recent. There is slightly increased uptake associated with a midthoracic vertebral body segment, T6, also compatible with the findings on CT. The uptake at T6 would suggest that this is likely old. Photopenic areas are noted associated with the knees compatible with bilateral knee prostheses. Normal activity is seen in the right hip. Definite evidence of metastatic disease is not seen. IMPRESSION: No definite evidence of metastatic disease. Increased uptake in the pelvis compatible and left clavicle compatible with Paget's changes. Intense uptake at L2 compatible with the known fracture at this level. Mild uptake at T6 suggesting an old compression fracture
[2016-10-17 15:00] VITALS: BP 133/79
--- NOTE | 2016-10-17 16:10 | PATHOLOGY ---
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 SEE COMMENT. COMMENT: One of the biopsy segments is diffusely replaced by a malignant neoplasm. The malignant cells are present in solid nests and sheets within a fibrous stroma. The malignant cells are large and have a relatively high N/C ratio with modest amounts of amphiphilic cytoplasm. The malignant cells possess enlarged, rounded to ovoid to irregular vesicular nuclei containing prominent nucleoli. Mitotic figures are present. There is no evidence of glandular or squamous differentiation. The other biopsy segment is comprised predominantly of lymph node which contains follicles. The follicle centers are composed predominantly of large lymphoid cells. These follicles lack well developed mantle zones. The interfollicular areas show recent hemorrhage and are predominantly populated by small lymphocytes. A portion of the specimen is submitted for marker studies by flow cytometry. The specimen has a viability of 97.9%. Lymphocytes comprise 89.5% of total cells. T-cells comprise 61% of lymphoid cells and show a CD4/CD8 ratio of approximately 4.9. NK-cells comprise 1% of lymphoid cells. Mature B-cells comprise 45% of lymphoid cells, are small in size based on forward scatter pattern, and are CD20 positive (bright), CD5 negative, CD10 positive, CD11c positive (dim), CD19 positive, CD23 negative, and CD38 positive and show surface kappa light chain restriction with a kappa:lamda ratio of 12.9. To confirm flow cytometric findings and characterize the target cells in a tissue architectural context, a panel of immunohistochemical stains is performed and yields the following results: AE1/AE3: atypical cells negative CD20: atypical cells positive CD3: atypical cells negative; population of small lymphocytes positive CD5: atypical cells negative; population of small lymphocytes positive CD10: atypical cells positive BCL2: atypical cells positive BCL6: atypical cells positive Cyclin D1: atypical cells negative CD21: atypical cells negative; follicular dendritic meshwork in follicles positive MUM-1: atypical cells positive Ki67: atypical cells show a proliferation index of 50-60%. 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 The case is also examined by Dr. Catalan, who concurs with the diagnosis. (JPM:all; d/t: 10/16/2016) Special stains performed: immunoperoxidase stains for BCL2, BCL6, CD20, cyclin D1, CD10, CD21, CD3, AE1/AE3, ki67, MUM-1, CD5 REPORT ELECTRONICALLY SIGNED BY: Travis Patel M.D. DATE/TIME: 10/17/2016 16:09 * * * * * * * * GROSS PATHOLOGY: Received in formalin labeled "Abad Ortiz, abdominal mass," and additionally labeled on the requisition as, "large central retroperitoneal soft tissue mass". Received are two distinct needle cores of white-cormier to red-brown soft tissue ranging from 1.7 to 1.9 cm in length, which are submitted entirely in cassette A1. (CAA; 10/13/2016) INITIAL CPT CODE(S): A; 80986, 00302, 92222, 75215, 16331, 22362, 47776, 14785, 67142, 69549, 75233, 10201 Professional services performed [place] [address] Technical services performed by [facility] at [address] [place] [address]. SPECIMEN(S) RECEIVED: A.Retroperitoneal soft tissue mass CLINICAL HISTORY: Large, central retroperitoneal soft tissue mass, retroperitoneal fibrosis vs. metastatic disease vs. lymphoma PROCEDURE: Separate specimen sent in RPMI for flow; [place] [facility] [facility] [place]IENT: ABAD ORTIZ /AGE: [id number] 1935 (Age: 81) PATIENT #: [id number] ALT CASE #: SPECIMEN COLLECTION DATE: 10/13/2016 SPECIMEN RECEIVED DATE: 10/13/2016 [facility] - [address] [place] [address] - PHONE: [phone] * * * END OF REPORT * * *
[2016-10-17] MEDS: ALLOPURINOL 100 MG TABLET. PO SCH (17:10)
[2016-10-17 19:00] VITALS: BP 128/79
[2016-10-17 20:14] LABS: ALBUMIN RAND UR 25.6 % (.); BETA RAND UR 30.7 % (.); M-SPIKE, % Not Observed % (Not Observed); PROTEIN UR RAND 13.4 mg/dL (Not Estab.)
[2016-10-17] MEDS: TAMSULOSIN 0.4 MG CAP.ER.24H. PO SCH (21:29)
[2016-10-17] MEDS: SIMVASTATIN 40 MG TABLET. PO SCH (21:29)
[2016-10-17] MEDS: EZETIMIBE 10 MG TABLET PO SCH (21:30)
[2016-10-17] MEDS: LOSARTAN POTASSIUM 50 MG TABLET. PO SCH (21:30)
[2016-10-17] MEDS: SERTRALINE 50 MG TABLET. PO SCH (21:30)
[2016-10-17 23:00] VITALS: BP 136/86
[2016-10-18] VITALS (16 sets, daily range): BP systolic 101–160; BP diastolic 65–102
[2016-10-18] MEDS: LEVOFLOXACIN 250 MG TABLET. PO SCH (06:00)
[2016-10-18 06:50] LABS: INR 1.4 (0.8-1.1); PROTHROMBIN TIME PATIENT 16.1 SEC (11.7-14.0)
[2016-10-18] MEDS: CARVEDILOL 12.5 MG TABLET PO SCH ×2 (08:00→17:32)
[2016-10-18 08:14] LABS: BASO % 1 % (0-3); EOS % 2 % (0-3); HEMOGLOBIN 8.9 g/dL (13.0-17.5); LYMPH # 0.4 x10^3/uL (1.0-4.8); LYMPH % 9 % (24-48); MEAN CORPUSCULAR HEMOGLOBIN 31 pg (25-35); MEAN CORPUSCULAR HGB CONC 33 g/dL (31-37); MEAN CORPUSCULAR VOLUME 93 fL (79-100); MONO % 10 % (0-9); NEUT % 78 % (31-73); PLATELET COUNT 164 x10^3/uL (140-400); RED BLOOD COUNT 2.91 x10^6/uL (4.30-5.70); RED CELL DISTRIBUTION WIDTH 14.7 % (11.5-14.5); WHITE BLOOD COUNT 4.2 x10^3/uL (4.0-11.0)
[2016-10-18] MEDS: IV NORMAL SALINE 1000ML BAG 1,000 ML IV SCH ×2 (08:44→17:33)
--- NOTE | 2016-10-18 08:55 | PDOC ---
Subjective: Subjective: Onc f/u- DLBCL Pt's family called after hours stating they had questions about dx, tests, tx plan, labs, etc. Family not available from 8-5. I saw pt at 7:40 this AM and attempted to call CHACHO Gutierrez per pt request- was not able to reach him. Pt w/ no complaints. No SOB, chest pain, abd pain. Difficulty passing urine, stool. Objective: Vital Signs: Vital Signs Date Time Temp Pulse Resp B/P Pulse Ox O2 Delivery O2 Flow Rate FiO2 10/18/16 03:00 97.9 84 18 116/73 92 Room Air 97.9 10/17/16 11:00 Physical Exam: Abdomen: No tenderness Heart: Regular rate Extremities: No edema General: Alert, Oriented X3, No acute distress Lungs: Normal air movement Psych/Mental Status: Mental status NL, Mood NL Labs/Imaging: Bone scan neg CT neck/ chest- 1.7 cm left ext auditory canal mass, otherwise neg Path- DLBCL Echo EF 60- 65% CT A/P- 12.7 cm pelvic mass Ca trending down Assessment/Plan A/P: 1. 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 Hematuria/bleeding after cystoscopy/ stent placement on 10/12/2016 S/p Praxbind- Stable 3. Renal failure- due to bilateral hydronephrosis from abdominal mass- Monitor. 4. Paget's disease with T6, L2 compression fracture 5. Hypercalcemia, possibly malignancy related. On calcitonin, IVF. No bisphosphonates with renal failure. Repeat tomorrow. Pt likely going to SNF on [address] DO Oct 18, 2016 08:55
[2016-10-18] MEDS: CALCITONIN,SALMON 400 UNIT/2 ML VIAL. SQ SCH ×2 (08:58→21:26)
[2016-10-18] MEDS ORDERED: MIDAZOLAM HCL/PF 5 MG/5 ML VIAL ONE (10:26)
[2016-10-18] MEDS ORDERED: FENTANYL PF 250 MCG/5 ML VIAL. ONE (10:26)
[2016-10-18] MEDS ORDERED: MIDAZOLAM HCL/PF 5 MG/5 ML VIAL IV ONE (10:30)
[2016-10-18] MEDS ORDERED: FENTANYL PF 250 MCG/5 ML VIAL. IV ONE (10:30)
[2016-10-18] MEDS ORDERED: LIDOCAINE 1% / SOD BICARB 8.4% 20 ML VIAL. IJ ONE (10:30)
[2016-10-18] MEDS ORDERED: VANCOMYCIN 1GM IVPB FOR OMNI 250 ML ONE (11:02)
[2016-10-18] MEDS ORDERED: LIDOCAINE 1%/EPI 1:100,000 20 ML VIAL. ONE (11:02)
[2016-10-18] MEDS ORDERED: HEPARIN PF 500 UNIT/5 ML DISP.SYRIN. IV ONE ×2 (11:02→11:30)
[2016-10-18] MEDS ORDERED: CEFAZOLIN 1GM IVPB FOR OMNI 50 ML IV ONE ×2 (11:18→11:30)
[2016-10-18] MEDS ORDERED: VANCOMYCIN 1GM IVPB FOR OMNI 250 ML IRR ONE (11:30)
[2016-10-18] MEDS ORDERED: LIDOCAINE 1%/EPI 1:100,000 20 ML VIAL. IJ ONE (11:30)
--- NOTE | 2016-10-18 12:08 | PDOC ---
MODERATE SEDATION ASSESSMENT RISKS/ALTERNATIVES Risks/Alternatives Risks and alternatives of this type of sedation and procedure discussed with: RISK/ALTERNATIVES: Patient H & P ON CHART H & P H & P on chart and reviewed for co-morbid conditions and appropriate labs. H&P ON CHART: Yes STATUS PREG STATUS ASSESSED: Yes MEDS/ALLERGIES REVIEWED Meds/Allergies Reviewed Medications and Allergies including time and route of recently administered narcotics and sedatives. MEDS/ALLERGIES REVIEWED: Yes ASA RATING ASA RATING: II AIRWAY ASSESSMENT Airway Assessment Airway patency, oral function limitations, presence of caps, crowns, dentures, partials, and ability to extend neck assessed. AIRWAY ASSESSMENT: Yes MALLAMPATI SCORE MALLAMPATI SCORE: II PRE-SEDATION ASSESSMENT PRE-SEDATION ASSESSMENT: Yes ROLAND NAVARRO MD Oct 18, 2016 12:08
--- NOTE | 2016-10-18 12:09 | PDOC ---
BRIEF OPERATIVE NOTE Pre-Op Diagnosis Lymphoma Post-Op Diagnosis same Procedure Performed CT Bone Marrow Biopsy and Fluoro Port placement Surgeon Ana Anesthesia Type: Conscious Sedation Specimens Obtained 2 x 2 cc aspirates and 1 x 10g core Findings LIJ port with good function Complications No immediate ROLAND NAVARRO MD Oct 18, 2016 12:09
[2016-10-18] MEDS ORDERED: ONDANSETRON PF 4 MG/2 ML VIAL. IV PRN (14:45)
--- NOTE | 2016-10-18 14:49 | RAD ---
Procedure: CT-guided bone marrow aspiration and biopsy Clinical Indication: 81-year-old with lymphoma Sedation: Conscious sedation was administered for this procedure, however the total time of sedation is aggregated with the patient's port procedure. Please refer to Port-A-Cath dictation for total sedation time between these 2 procedures. Antibiotics: None Fluoro Time: Not applicable Contrast: None Sterility: The procedure was performed in its entirety using appropriate elements of sterile technique. Consent: The procedure was explained in its entirety to the patient or the patients designated physician relations representative by a member of the treatment team, including a discussion of the risks, benefits and commonly accepted alternatives to the procedure, as well as the expected consequences of no therapy whatsoever. Discussion of the risks included, but was not limited to, those that are most frequent and those that are rare but possibly severe or life-threatening, as well as the possibility of unforeseen complications. Technique and Findings: Following informed consent, the patient was prepped and draped in usual sterile fashion. Preliminary CT scan of the area of interest was performed. 1% Lidocaine was used to achieve local anesthesia. Under periodic CT surveillance, an 11-gauge needle was advanced through the cortex of the posterior superior iliac spine and 2 separate 2 mL marrow aspirates were obtained and preserved on site by the visitor use assistant. A single 11-gauge core biopsy specimen was then obtained and preserved in formalin. The needle was then removed and hemostasis was achieved with manual compression. Complications: No immediate Impression: 1. CT-guided bone marrow aspiration and biopsy as described PQRS Compliance Statement: One or more of the following individualized dose reduction techniques were utilized for this examination: 1. Automated exposure control 2. Adjustment of the mA and/or kV according to patient size 3. Use of iterative reconstruction technique
--- NOTE | 2016-10-18 14:53 | RAD ---
Procedure: Left IJ Port-A-Cath Clinical Indication: 81-year-old male with lymphoma Sedation: Conscious sedation was administered for 81 minutes in aggregate across both the bone marrow biopsy procedure and this Port-A-Cath procedure. Sedation time is only reported for this dictation. The patient was monitored by a qualified independent observer throughout the time of sedation. Please refer to the medical record for exact doses of medications utilized to achieve moderate sedation. Antibiotics: Antibiotic was administered intravenously within 1 hour of the procedure start time. Exposure: Kerma-Area Product: 3 Gycm2 Contrast: None Sterility: All elements of maximal sterile barrier technique including the use of a cap, mask, sterile gown, sterile gloves, large sterile sheet, appropriate hand hygiene, and 2% chlorhexidine for cutaneous antisepsis (or acceptable alternative antiseptic per current guidelines) were followed for this procedure. Consent: The procedure was explained in its entirety to the patient or the patients designated international account representative by a member of the treatment team, including a discussion of the risks, benefits and commonly accepted alternatives to the procedure, as well as the expected consequences of no therapy whatsoever. Discussion of the risks included, but was not limited to, those that are most frequent and those that are rare but possibly severe or life-threatening, as well as the possibility of unforeseen complications. Technique and Findings: Following informed consent, the patient was prepped and draped in usual sterile fashion. Ultrasound interrogation of the left neck revealed patency and compressibility of the left internal jugular vein. Hardcopy ultrasound image was recorded as a 21-gauge micropuncture needle was used to gain access to this vein. The needle was exchanged over wire for a peel-away sheath. The skin over the left anterior chest wall was copiously anesthetized with 1% lidocaine plus epinephrine. A small dermatotomy was made and blunt dissection techniques were used to create a subcutaneous pocket for the port. The port was then tunneled subcutaneously towards the neck dermatotomy and deployed through the peel-away sheath under fluoroscopic guidance such that the distal tip resided in the proximal right atrium. The port was accessed and found to flush and aspirate with ease. The port was packed with heparin. The pocket was copiously irrigated with vancomycin impregnated sterile saline then closed with deep interrupted and running subcuticular 4-0 Vicryl suture. The neck dermatotomy was closed with Dermabond. Complications: No immediate Impression: 1. Left IJ Port-A-Cath as described
[2016-10-18] MEDS: FENOFIBRATE,MICRONIZED 134 MG CAPSULE PO SCH (15:01)
[2016-10-18] MEDS: MULTIVITAMIN with MINERAL TABLET. PO SCH (15:01)
[2016-10-18] MEDS: CHOLECALCIFEROL (VITAMIN D3) 5,000 UNIT CAPSULE PO SCH (15:01)
[2016-10-18] MEDS: ALLOPURINOL 100 MG TABLET. PO SCH (15:02)
--- NOTE | 2016-10-18 15:17 | PDOC ---
SUBJECTIVE ROS YURI Doing and feeling better overall - poor PO intake still CVS: no Orthopnea, no CP RESP: no SOB, no ZEPEDA GI: no Nausea, no Vomiting : no Dysuria, no Urgency OBJECTIVE Vital Signs Vital Signs Date Time Temp Pulse Resp B/P Pulse Ox O2 Delivery O2 Flow Rate FiO2 10/18/16 12:15 97.6 84 18 153/99 94 Room Air 97.6 10/18/16 12:08 2.0 I & 0 Intake and Output 10/18/16 07:00 Intake Total 2620 ml Output Total 1850 ml Balance 770 ml Intake Oral 220 ml IV Total 1200 ml Other 1200 ml Output Urine Total 700 ml Drainage Total 1150 ml PHYSICAL EXAM Physical Exam General Appearance: Awake Alert Oriented x 3 In no Distress Eyes: VIsion Unchanged Conjunctiva Normal EN: No EN Drainage Mucous Memb. moist Neck: no JVD no JVP Supple no Thyromegaly CVS: S1 S2 soft Murmur No Gallop No Rub no Edema Resp: no Rales no Rhonchi no Acc. Muscle use GI: BS +ve NO Bruit Non Tender Non Distended : no CVA tenderness; (PCNs in place) no Suprapubic Tenderness ASSESSMENT/PLAN ARF: Creat better after HD x 2 and PCNs. watch Trend with PCNs in place; no labs today. PCNs with good UO ^Krishna - suspect due to Underlying Lymphoma; restarted Miacalcin; Unable to use Pamidronate due to Renal Insuff. Ct IVF for now. Low Mag - Replace per prn order Low K - Replace per sliding scale - added to IVF - watch trend once CHemo starts (tu Lysis) Hypoalbuminemia - suspect due to Poor PO intake Anemia: (? part of Lymphoma) defer to Dr Ross/ Henry who is now on the case HTN: Current BP meds reviewed. See orders for changes. COMMENT/RELEVANT DATA Meds Current Medications Medications (Trade) Dose Ordered Sig/Selena Start Time Stop Time Status Last Admin Dose Admin Acetaminophen (Tylenol) 650 mg ONCE ONCE 10/19/16 08:30 10/19/16 08:31 Acetaminophen/ Hydrocodone Bitart 1 tab 1 tab PRN Q4HRS PRN 10/15/16 17:45 10/17/16 21:31 1 TAB Allopurinol (Zyloprim) 100 mg DAILY 10/17/16 10:30 10/18/16 15:02 100 MG Apixaban (Eliquis) 2.5 mg BID 10/12/16 21:00 10/12/16 21:00 DC Aspirin (Children'S Aspirin) 81 mg DAILY08 10/10/16 14:00 10/12/16 19:37 DC 10/12/16 08:47 81 MG Calcitonin [place] (Miacalcin) 400 unit BID 10/10/16 21:00 10/12/16 23:52 DC 10/12/16 08:51 400 UNIT Calcitonin [place] 400 unit 400 unit BID 10/16/16 21:00 10/19/16 09:01 10/18/16 08:58 400 UNIT Carvedilol (Coreg) 25 mg BIDWMEALS 10/10/16 17:00 10/17/16 17:10 25 MG Cefazolin Sodium 50 ml @ 100 mls/hr 1X ONCE 10/18/16 11:30 10/18/16 11:59 DC 10/18/16 11:59 100 MLS/HR Cefazolin Sodium (Ancef 1gm Ivpb For Omni) 50 ml @ As Directed STK-MED ONCE 10/18/16 11:18 10/18/16 11:19 DC Cyclophosphamide 1500 mg/Sodium Chloride 250 ml @ 500 mls/hr ONCE ONCE 10/19/16 13:00 10/19/16 13:29 Dabigatran (Pradaxa) 75 mg BID 10/11/16 09:00 10/12/16 14:56 DC 10/11/16 10:03 75 MG Dexamethasone Sodium Phosphate (Decadron) 20 mg STK-MED ONCE 10/12/16 12:25 10/12/16 12:26 DC Diphenhydramine HCl (Benadryl) 25 mg 1X PRN PRN 10/12/16 18:00 10/13/16 13:06 DC Diphenhydramine HCl 50 mg 50 mg ONCE ONCE 10/19/16 08:30 10/19/16 08:31 Doxorubicin HCl 100 mg/ Miscellaneous 50 ml @ 600 mls/hr ONCE ONCE 10/19/16 13:00 10/19/16 13:04 EZETIMIBE (Zetia) 10 mg HS 10/10/16 21:00 10/17/16 21:30 10 MG Fenofibrate (Lofibra) 134 mg DAILY 10/10/16 14:00 10/18/16 15:01 134 MG Fentanyl Citrate (Fentanyl 2ml Vial) 50 mcg PRN Q2HR PRN 10/14/16 01:30 10/14/16 20:58 50 MCG Fentanyl Citrate (Fentanyl 5ml Vial) 250 mcg 1X ONCE 10/18/16 10:30 10/18/16 10:35 DC 10/18/16 11:55 250 MCG Gelatin (Gelfoam Size 12-7mm) 1 each STK-MED ONCE 10/13/16 14:44 10/13/16 14:45 DC Heparin Sodium (Porcine) (Hep Lock Adult) 500 unit 1X ONCE 10/18/16 11:30 10/18/16 11:35 DC 10/18/16 11:59 500 UNIT Heparin Sodium (Porcine) 500 unit 500 unit STK-MED ONCE 10/18/16 11:02 10/18/16 11:03 DC Heparin Sodium/ Sodium Chloride 1000 unit 1,000 unit 1X ONCE 10/18/16 11:30 10/18/16 11:35 DC 10/18/16 11:53 1,000 UNIT Hydromorphone HCl (Dilaudid) 0.5 mg PRN Q10MIN PRN 10/12/16 09:30 10/13/16 09:29 DC Idarucizumab (Praxbind) 5 gm 1X ONCE 10/12/16 16:30 10/12/16 16:31 DC 10/12/16 16:48 5 GM Info (Anti-Coagulation Monitoring By Pharmacy) 1 each PRN DAILY PRN 10/10/16 14:45 10/13/16 09:44 DC 10/11/16 08:28 1 EACH Info (PHARMACY MONITORING -- do not chart) 1 each PRN DAILY PRN 10/13/16 11:00 10/13/16 11:05 DC Iohexol 50 ml 50 ml STK-MED ONCE 10/12/16 11:38 10/12/16 11:39 DC Lactated Ringer's (Iv Lactated Ringers) 1,000 ml @ 0 mls/hr Q0M 10/12/16 09:29 10/12/16 21:28 DC 10/12/16 12:43 100 MLS/HR Levofloxacin (Levaquin) 250 mg DAILY06 10/16/16 06:00 10/17/16 06:27 250 MG Levofloxacin/ Dextrose (LEVAQUIN 250mg PREMIX) 50 ml @ 100 mls/hr 1X ONCE 10/13/16 13:30 10/13/16 13:59 DC 10/13/16 16:25 100 MLS/HR Lidocaine HCl 20 ml STK-MED ONCE 10/12/16 15:40 10/12/16 15:41 DC Lidocaine/ Epinephrine (Xylocaine 1%-Epi 1:100,000) 2 ml 1X ONCE 10/12/16 16:30 10/12/16 16:31 DC 10/12/16 16:28 2 ML Lidocaine/ Epinephrine 20 ml 20 ml 1X ONCE 10/18/16 11:30 10/18/16 11:35 DC 10/18/16 11:56 12 ML Lidocaine/Sodium Bicarbonate (Buffered Lidocaine 1%) 20 ml 1X ONCE 10/18/16 10:30 10/18/16 10:31 DC 10/18/16 11:54 6 ML Lidocaine/Sodium Bicarbonate 20 ml 20 ml 1X ONCE 10/13/16 13:15 10/13/16 13:16 DC 10/13/16 16:23 28 ML Losartan Potassium (Cozaar) 100 mg QHS 10/10/16 21:00 10/17/16 21:30 100 MG Magnesium Sulfate/ Dextrose 50 ml @ 25 mls/hr PRN DAILY PRN 10/16/16 14:45 10/17/16 10:26 25 MLS/HR Magnesium Sulfate/ Dextrose (Magnesium Sulfate PREMIX 2GM) 50 ml @ 25 mls/hr PRN DAILY PRN 10/10/16 13:30 10/16/16 16:08 DC 10/14/16 13:04 25 MLS/HR Midazolam HCl (Versed) 5 mg 1X ONCE 10/18/16 10:30 10/18/16 10:35 DC 10/18/16 11:55 2 MG Morphine Sulfate 1 mg 1 mg PRN Q10MIN PRN 10/12/16 09:30 10/13/16 09:29 DC Multivitamins/ Calcium (Thera M Plus) 1 tab DAILY 10/10/16 14:00 10/18/16 15:01 1 TAB Non-Formulary Medication 20 meq DAILYWSUP 10/10/16 17:00 UNV Ondansetron HCl (Zofran) 4 mg PRN Q4HRS PRN 10/18/16 14:45 Ondansetron HCl/ Dexamethasone Sodium Phosphate/ Sodium Chloride (Zofran/Decadron/ Iv Sodium Chloride 0.9% 50ml) 61 ml @ 122 mls/hr ONCE ONCE 10/19/16 12:30 10/19/16 12:59 Phenylephrine HCl 1 mg STK-MED ONCE 10/12/16 13:59 10/12/16 14:00 DC Potassium Chloride 40 meq/ Sodium Chloride 1,020 ml @ 100 mls/hr [id number] 10/17/16 09:15 10/18/16 05:38 DC 10/17/16 22:37 100 MLS/HR Potassium Chloride (KCl Premix 20meq) 50 ml @ 50 mls/hr PRN Q2HR PRN 10/16/16 14:45 Potassium Chloride (Klor-Con) 20 meq DAILYWSUP 10/10/16 17:00 10/10/16 17:00 DC Prochlorperazine Edisylate (Compazine) 5 mg PACU PRN PRN 10/12/16 09:30 10/13/16 09:29 DC Propofol (Diprivan) 20 ml @ As Directed STK-MED ONCE 10/12/16 12:25 10/12/16 12:26 DC Rituximab 775 mg/ Sodium Chloride 852.5 ml @ 213.125 mls/hr 1X ONCE 10/19/16 09:00 10/19/16 12:59 Sertraline HCl (Zoloft) 50 mg HS 10/10/16 21:00 10/17/16 21:30 50 MG Simvastatin (Zocor) 80 mg QHS 10/10/16 21:00 10/17/16 21:29 80 MG Sodium Polystyrene Sulfonate (Kayexalate) 45 gm 1X ONCE 10/10/16 13:30 10/10/16 13:44 DC 10/10/16 15:07 45 GM Sodium Chloride (Iv Sodium Chloride 0.9% 1000ml Bag) 1,000 ml @ 100 mls/hr Q10H 10/18/16 06:00 10/18/16 08:44 100 MLS/HR Sodium Chloride (Normal Saline Flush) 10 ml 1X PRN PRN 10/13/16 11:00 10/13/16 18:00 DC Spironolactone (Aldactone) 25 mg DAILY 10/10/16 14:00 10/10/16 14:17 DC Tamsulosin HCl (Flomax) 0.4 mg HS 10/10/16 21:00 10/17/16 21:29 0.4 MG Tbo-Filgrastim (Granix) 480 mcg QHS 10/19/16 21:00 10/28/16 21:00 Vancomycin HCl 250 ml @ 250 mls/hr 1X ONCE 10/18/16 11:30 10/18/16 12:29 DC 10/18/16 11:54 250 MLS/HR Vincristine Sulfate/Sodium Chloride (Oncovin/Iv Sodium Chloride 0.9% 50ml) 50 ml @ 275 mls/hr ONCE ONCE 10/19/16 13:00 10/19/16 13:10 Vitamin D (Vitamin D3) 5,000 unit DAILY 10/10/16 14:00 10/18/16 15:01 5,000 UNIT Lab Laboratory Tests Test 10/17/16 19:15 10/18/16 06:00 10/18/16 06:20 Potassium Level 3.7mmol/L (3.5-5.1) 3.8mmol/L (3.5-5.1) White Blood Count 4.2x10^3/uL (4.0-11.0) Red Blood Count 2.91x10^6/uL (4.30-5.70) Hemoglobin 8.9g/dL (13.0-17.5) Hematocrit 27.0% (39.0-53.0) Mean Corpuscular Volume 93fL (79-100) Mean Corpuscular Hemoglobin 31pg (25-35) Mean Corpuscular Hemoglobin Concent 33g/dL (31-37) Red Cell Distribution Width 14.7% (11.5-14.5) Platelet Count 164x10^3/uL (140-400) Neutrophils (%) (Auto) 78% (31-73) Lymphocytes (%) (Auto) 9% (24-48) Monocytes (%) (Auto) 10% (0-9) Eosinophils (%) (Auto) 2% (0-3) Basophils (%) (Auto) 1% (0-3) Neutrophils # (Auto) 3.3x10^3uL (1.8-7.7) Lymphocytes # (Auto) 0.4x10^3/uL (1.0-4.8) Monocytes # (Auto) 0.4x10^3/uL (0.0-1.1) Eosinophils # (Auto) 0.1x10^3/uL (0.0-0.7) Basophils # (Auto) 0.0x10^3/uL (0.0-0.2) Prothrombin Time 16.1SEC (11.7-14.0) Prothromb Time International Ratio 1.4 (0.8-1.1) Magnesium Level 1.7mg/dL (1.8-2.4) DIAZ GUNN MD Oct 18, 2016 15:17
[2016-10-18] MEDS: HYDROCODONE/APAP 5/325MG TABLET. PO PRN ×2 (17:32→21:25)
[2016-10-18] MEDS: SIMVASTATIN 40 MG TABLET. PO SCH (21:24)
[2016-10-18] MEDS: EZETIMIBE 10 MG TABLET PO SCH (21:24)
[2016-10-18] MEDS: SERTRALINE 50 MG TABLET. PO SCH (21:25)
[2016-10-18] MEDS: TAMSULOSIN 0.4 MG CAP.ER.24H. PO SCH (21:25)
[2016-10-18] MEDS: LOSARTAN POTASSIUM 50 MG TABLET. PO SCH (21:29)
--- NOTE | 2016-10-18 23:47 | PDOC ---
GENERAL General: vss and afebrile. awake and alert and eating breakfast when I saw. 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 Discussed treatment of same with patient and oncology. exam and labs stable. for line placement for chemo today and bone marrow today with plans for first chemo tomorrow. Problems: VITAL SIGNS Vital Signs: Vital Signs Date Time Temp Pulse Resp B/P Pulse Ox O2 Delivery O2 Flow Rate FiO2 10/18/16 21:29 88 101/65 10/18/16 21:25 Room Air 10/18/16 19:12 97.9 16 95 97.9 10/18/16 12:08 2.0 I & O I & O Intake and Output 10/18/16 07:00 Intake Total 2620 ml Output Total 1850 ml Balance 770 ml Intake Oral 220 ml IV Total 1200 ml Other 1200 ml Output Urine Total 700 ml Drainage Total 1150 ml ALLERGIES Allergies: Allergies Coded Allergies Type Severity Reaction Last Updated Verified No Known Drug Allergies 10/10/16 No MEDS Medications: Current Medications Medications (Trade) Dose Ordered Sig/Selena Start Time Stop Time Status Last Admin Dose Admin Acetaminophen (Tylenol) 650 mg ONCE ONCE 10/19/16 08:30 10/19/16 08:31 Acetaminophen/ Hydrocodone Bitart 1 tab 1 tab PRN Q4HRS PRN 10/15/16 17:45 10/18/16 21:25 1 TAB Allopurinol (Zyloprim) 100 mg DAILY 10/17/16 10:30 10/18/16 15:02 100 MG Apixaban (Eliquis) 2.5 mg BID 10/12/16 21:00 10/12/16 21:00 DC Aspirin (Children'S Aspirin) 81 mg DAILY08 10/10/16 14:00 10/12/16 19:37 DC 10/12/16 08:47 81 MG Calcitonin [place] (Miacalcin) 400 unit BID 10/10/16 21:00 10/12/16 23:52 DC 10/12/16 08:51 400 UNIT Calcitonin [place] 400 unit 400 unit BID 10/16/16 21:00 10/19/16 09:01 10/18/16 21:26 400 UNIT Carvedilol (Coreg) 25 mg BIDWMEALS 10/10/16 17:00 10/18/16 17:32 25 MG Cefazolin Sodium 50 ml @ 100 mls/hr 1X ONCE 10/18/16 11:30 10/18/16 11:59 DC 10/18/16 11:59 100 MLS/HR Cefazolin Sodium (Ancef 1gm Ivpb For Omni) 50 ml @ As Directed STK-MED ONCE 10/18/16 11:18 10/18/16 11:19 DC Cyclophosphamide 1500 mg/Sodium Chloride 250 ml @ 500 mls/hr ONCE ONCE 10/19/16 13:00 10/19/16 13:29 Dabigatran (Pradaxa) 75 mg BID 10/11/16 09:00 10/12/16 14:56 DC 10/11/16 10:03 75 MG Dexamethasone (Decadron) 20 mg 1X ONCE 10/19/16 12:30 10/19/16 12:31 Dexamethasone Sodium Phosphate (Decadron) 20 mg STK-MED ONCE 10/12/16 12:25 10/12/16 12:26 DC Diphenhydramine HCl (Benadryl) 25 mg 1X PRN PRN 10/12/16 18:00 10/13/16 13:06 DC Diphenhydramine HCl 50 mg 50 mg ONCE ONCE 10/19/16 08:30 10/19/16 08:31 Doxorubicin HCl 100 mg/ Miscellaneous 50 ml @ 600 mls/hr ONCE ONCE 10/19/16 13:00 10/19/16 13:04 EZETIMIBE (Zetia) 10 mg HS 10/10/16 21:00 10/18/16 21:24 10 MG Fenofibrate (Lofibra) 134 mg DAILY 10/10/16 14:00 10/18/16 15:01 134 MG Fentanyl Citrate (Fentanyl 2ml Vial) 50 mcg PRN Q2HR PRN 10/14/16 01:30 10/14/16 20:58 50 MCG Fentanyl Citrate (Fentanyl 5ml Vial) 250 mcg 1X ONCE 10/18/16 10:30 10/18/16 10:35 DC 10/18/16 11:55 250 MCG Gelatin (Gelfoam Size 12-7mm) 1 each STK-MED ONCE 10/13/16 14:44 10/13/16 14:45 DC Heparin Sodium (Porcine) (Hep Lock Adult) 500 unit 1X ONCE 10/18/16 11:30 10/18/16 11:35 DC 10/18/16 11:59 500 UNIT Heparin Sodium (Porcine) 500 unit 500 unit STK-MED ONCE 10/18/16 11:02 10/18/16 11:03 DC Heparin Sodium/ Sodium Chloride 1000 unit 1,000 unit 1X ONCE 10/18/16 11:30 10/18/16 11:35 DC 10/18/16 11:53 1,000 UNIT Hydromorphone HCl (Dilaudid) 0.5 mg PRN Q10MIN PRN 10/12/16 09:30 10/13/16 09:29 DC Idarucizumab (Praxbind) 5 gm 1X ONCE 10/12/16 16:30 10/12/16 16:31 DC 10/12/16 16:48 5 GM Info (Anti-Coagulation Monitoring By Pharmacy) 1 each PRN DAILY PRN 10/10/16 14:45 10/13/16 09:44 DC 10/11/16 08:28 1 EACH Info (PHARMACY MONITORING -- do not chart) 1 each PRN DAILY PRN 10/13/16 11:00 10/13/16 11:05 DC Iohexol 50 ml 50 ml STK-MED ONCE 10/12/16 11:38 10/12/16 11:39 DC Lactated Ringer's (Iv Lactated Ringers) 1,000 ml @ 0 mls/hr Q0M 10/12/16 09:29 10/12/16 21:28 DC 10/12/16 12:43 100 MLS/HR Levofloxacin (Levaquin) 250 mg DAILY06 10/16/16 06:00 10/17/16 06:27 250 MG Levofloxacin/ Dextrose (LEVAQUIN 250mg PREMIX) 50 ml @ 100 mls/hr 1X ONCE 10/13/16 13:30 10/13/16 13:59 DC 10/13/16 16:25 100 MLS/HR Lidocaine HCl 20 ml STK-MED ONCE 10/12/16 15:40 10/12/16 15:41 DC Lidocaine/ Epinephrine (Xylocaine 1%-Epi 1:100,000) 2 ml 1X ONCE 10/12/16 16:30 10/12/16 16:31 DC 10/12/16 16:28 2 ML Lidocaine/ Epinephrine 20 ml 20 ml 1X ONCE 10/18/16 11:30 10/18/16 11:35 DC 10/18/16 11:56 12 ML Lidocaine/Sodium Bicarbonate (Buffered Lidocaine 1%) 20 ml 1X ONCE 10/18/16 10:30 10/18/16 10:31 DC 10/18/16 11:54 6 ML Lidocaine/Sodium Bicarbonate 20 ml 20 ml 1X ONCE 10/13/16 13:15 10/13/16 13:16 DC 10/13/16 16:23 28 ML Losartan Potassium (Cozaar) 100 mg QHS 10/10/16 21:00 10/17/16 21:30 100 MG Magnesium Sulfate/ Dextrose 50 ml @ 25 mls/hr PRN DAILY PRN 10/16/16 14:45 10/17/16 10:26 25 MLS/HR Magnesium Sulfate/ Dextrose (Magnesium Sulfate PREMIX 2GM) 50 ml @ 25 mls/hr PRN DAILY PRN 10/10/16 13:30 10/16/16 16:08 DC 10/14/16 13:04 25 MLS/HR Midazolam HCl (Versed) 5 mg 1X ONCE 10/18/16 10:30 10/18/16 10:35 DC 10/18/16 11:55 2 MG Morphine Sulfate 1 mg 1 mg PRN Q10MIN PRN 10/12/16 09:30 10/13/16 09:29 DC Multivitamins/ Calcium (Thera M Plus) 1 tab DAILY 10/10/16 14:00 10/18/16 15:01 1 TAB Non-Formulary Medication 20 meq DAILYWSUP 10/10/16 17:00 UNV Ondansetron HCl (Zofran) 4 mg PRN Q4HRS PRN 10/18/16 14:45 Ondansetron HCl/ Sodium Chloride (Zofran/Iv Sodium Chloride 0.9% 50ml) 56 ml @ 112 mls/hr ONCE ONCE 10/19/16 12:30 10/19/16 12:59 Phenylephrine HCl 1 mg STK-MED ONCE 10/12/16 13:59 10/12/16 14:00 DC Potassium Chloride 40 meq/ Sodium Chloride 1,020 ml @ 100 mls/hr [id number] 10/17/16 09:15 10/18/16 05:38 DC 10/17/16 22:37 100 MLS/HR Potassium Chloride (KCl Premix 20meq) 50 ml @ 50 mls/hr PRN Q2HR PRN 10/16/16 14:45 Potassium Chloride (Klor-Con) 20 meq DAILYWSUP 10/10/16 17:00 10/10/16 17:00 DC Prednisone (Prednisone) 100 mg DAILY 10/19/16 09:00 10/23/16 09:01 Prochlorperazine Edisylate (Compazine) 5 mg PACU PRN PRN 10/12/16 09:30 10/13/16 09:29 DC Propofol (Diprivan) 20 ml @ As Directed STK-MED ONCE 10/12/16 12:25 10/12/16 12:26 DC Rituximab 775 mg/ Sodium Chloride 852.5 ml @ 213.125 mls/hr 1X ONCE 10/19/16 09:00 10/19/16 12:59 Sertraline HCl (Zoloft) 50 mg HS 10/10/16 21:00 10/18/16 21:25 50 MG Simvastatin (Zocor) 80 mg QHS 10/10/16 21:00 10/18/16 21:24 80 MG Sodium Polystyrene Sulfonate (Kayexalate) 45 gm 1X ONCE 10/10/16 13:30 10/10/16 13:44 DC 10/10/16 15:07 45 GM Sodium Chloride (Iv Sodium Chloride 0.9% 1000ml Bag) 1,000 ml @ 100 mls/hr Q10H 10/18/16 06:00 10/18/16 17:33 100 MLS/HR Sodium Chloride (Normal Saline Flush) 10 ml 1X PRN PRN 10/13/16 11:00 10/13/16 18:00 DC Spironolactone (Aldactone) 25 mg DAILY 10/10/16 14:00 10/10/16 14:17 DC Tamsulosin HCl (Flomax) 0.4 mg HS 10/10/16 21:00 10/18/16 21:25 0.4 MG Tbo-Filgrastim (Granix) 480 mcg QHS 10/20/16 21:00 10/29/16 23:00 Vancomycin HCl 250 ml @ 250 mls/hr 1X ONCE 10/18/16 11:30 10/18/16 12:29 DC 10/18/16 11:54 250 MLS/HR Vincristine Sulfate/Sodium Chloride (Oncovin/Iv Sodium Chloride 0.9% 50ml) 50 ml @ 275 mls/hr ONCE ONCE 10/19/16 13:00 10/19/16 13:10 Vitamin D (Vitamin D3) 5,000 unit DAILY 10/10/16 14:00 10/18/16 15:01 5,000 UNIT LAB Lab: Laboratory Tests Test 10/18/16 06:00 10/18/16 06:20 10/18/16 13:40 10/18/16 18:20 White Blood Count 4.2x10^3/uL (4.0-11.0) Red Blood Count 2.91x10^6/uL (4.30-5.70) Hemoglobin 8.9g/dL (13.0-17.5) Hematocrit 27.0% (39.0-53.0) Mean Corpuscular Volume 93fL (79-100) Mean Corpuscular Hemoglobin 31pg (25-35) Mean Corpuscular Hemoglobin Concent 33g/dL (31-37) Red Cell Distribution Width 14.7% (11.5-14.5) Platelet Count 164x10^3/uL (140-400) Neutrophils (%) (Auto) 78% (31-73) Lymphocytes (%) (Auto) 9% (24-48) Monocytes (%) (Auto) 10% (0-9) Eosinophils (%) (Auto) 2% (0-3) Basophils (%) (Auto) 1% (0-3) Neutrophils # (Auto) 3.3x10^3uL (1.8-7.7) Lymphocytes # (Auto) 0.4x10^3/uL (1.0-4.8) Monocytes # (Auto) 0.4x10^3/uL (0.0-1.1) Eosinophils # (Auto) 0.1x10^3/uL (0.0-0.7) Basophils # (Auto) 0.0x10^3/uL (0.0-0.2) Prothrombin Time 16.1SEC (11.7-14.0) Prothromb Time International Ratio 1.4 (0.8-1.1) Potassium Level 3.8mmol/L (3.5-5.1) 3.6mmol/L (3.5-5.1) 3.5mmol/L (3.5-5.1) Magnesium Level 1.7mg/dL (1.8-2.4) AYALA LYMAN MD Oct 18, 2016 23:47
[2016-10-19] VITALS (7 sets, daily range): BP systolic 124–155; BP diastolic 77–97
[2016-10-19] MEDS: IV NORMAL SALINE 1000ML BAG 1,000 ML IV SCH ×3 (02:00→21:16)
[2016-10-19 04:21] LABS: BASO % 0 % (0-3); EOS % 3 % (0-3); HEMATOCRIT 26.3 % (39.0-53.0); HEMOGLOBIN 8.8 g/dL (13.0-17.5); LYMPH # 0.5 x10^3/uL (1.0-4.8); LYMPH % 11 % (24-48); MEAN CORPUSCULAR HEMOGLOBIN 31 pg (25-35); MEAN CORPUSCULAR HGB CONC 33 g/dL (31-37); MEAN CORPUSCULAR VOLUME 92 fL (79-100); MONO % 10 % (0-9); NEUT % 76 % (31-73); PLATELET COUNT 153 x10^3/uL (140-400); RED BLOOD COUNT 2.86 x10^6/uL (4.30-5.70); RED CELL DISTRIBUTION WIDTH 14.7 % (11.5-14.5); WHITE BLOOD COUNT 4.5 x10^3/uL (4.0-11.0)
[2016-10-19 04:45] LABS: ALBUMIN 2.3 g/dL (3.4-5.0); ALBUMIN/GLOBULIN RATIO 0.7 (1.0-1.7); GFR 32.1; PHOSPHORUS 3.5 mg/dL (2.6-4.7); POTASSIUM 3.5 mmol/L (3.5-5.1); TOTAL BILIRUBIN 0.4 mg/dL (0.2-1.0); TOTAL PROTEIN 5.5 g/dL (6.4-8.2)
[2016-10-19] MEDS ORDERED: MAGNESIUM SULFATE 2GM 50 ML IV ONE (05:45)
[2016-10-19] MEDS: LEVOFLOXACIN 250 MG TABLET. PO SCH (06:05)
[2016-10-19] MEDS ORDERED: ONDANSETRON HCL IV ONE (08:30)
[2016-10-19] MEDS ORDERED: NORMAL SALINE IV ONE ×4 (08:30→11:30)
[2016-10-19] MEDS ORDERED: DEXAMETHASONE 4 MG TABLET PO ONE (08:30)
--- NOTE | 2016-10-19 08:31 | PDOC ---
GENERAL General: vss and afebrile. awake and alert. creatinine is 2.0 and Hb 8.8. Calcium level is 11.0. O>I. had port a cath placement yesterday and bone marrow exam. ready for chemo today. discussed with oncology who plans to keep him here into early next week. will need snu with nephrostomy tubes in place at discharge until can get them out. Problems: VITAL SIGNS Vital Signs: Vital Signs Date Time Temp Pulse Resp B/P Pulse Ox O2 Delivery O2 Flow Rate FiO2 10/19/16 07:00 97.8 90 16 155/97 94 Room Air 97.8 10/18/16 12:08 2.0 I & O I & O Intake and Output 10/19/16 07:00 Intake Total 550 ml Output Total 1650 ml Balance -1100 ml Intake Oral 550 ml Drainage Total 1650 ml ALLERGIES Allergies: Allergies Coded Allergies Type Severity Reaction Last Updated Verified No Known Drug Allergies 10/10/16 No MEDS Medications: Current Medications Medications (Trade) Dose Ordered Sig/Selena Start Time Stop Time Status Last Admin Dose Admin Acetaminophen (Tylenol) 650 mg ONCE ONCE 10/19/16 12:00 10/19/16 12:01 Acetaminophen/ Hydrocodone Bitart 1 tab 1 tab PRN Q4HRS PRN 10/15/16 17:45 10/18/16 21:25 1 TAB Allopurinol (Zyloprim) 100 mg DAILY 10/17/16 10:30 10/18/16 15:02 100 MG Apixaban (Eliquis) 2.5 mg BID 10/12/16 21:00 10/12/16 21:00 DC Aspirin (Children'S Aspirin) 81 mg DAILY08 10/10/16 14:00 10/12/16 19:37 DC 10/12/16 08:47 81 MG Calcitonin [place] (Miacalcin) 400 unit BID 10/10/16 21:00 10/12/16 23:52 DC 10/12/16 08:51 400 UNIT Calcitonin [place] 400 unit 400 unit BID 10/16/16 21:00 10/19/16 09:01 10/18/16 21:26 400 UNIT Carvedilol (Coreg) 25 mg BIDWMEALS 10/10/16 17:00 10/18/16 17:32 25 MG Cefazolin Sodium 50 ml @ 100 mls/hr 1X ONCE 10/18/16 11:30 10/18/16 11:59 DC 10/18/16 11:59 100 MLS/HR Cefazolin Sodium (Ancef 1gm Ivpb For Omni) 50 ml @ As Directed STK-MED ONCE 10/18/16 11:18 10/18/16 11:19 DC Cyclophosphamide 1500 mg/Sodium Chloride 250 ml @ 500 mls/hr ONCE ONCE 10/19/16 09:00 10/19/16 09:29 Dabigatran (Pradaxa) 75 mg BID 10/11/16 09:00 10/12/16 14:56 DC 10/11/16 10:03 75 MG Dexamethasone Sodium Phosphate (Decadron) 20 mg STK-MED ONCE 10/12/16 12:25 10/12/16 12:26 DC Dexamethasone 20 mg 20 mg 1X ONCE 10/19/16 08:30 10/19/16 08:31 Diphenhydramine HCl (Benadryl) 25 mg 1X PRN PRN 10/12/16 18:00 10/13/16 13:06 DC Diphenhydramine HCl 50 mg 50 mg ONCE ONCE 10/19/16 11:00 10/19/16 11:01 Doxorubicin HCl 100 mg/ Miscellaneous 50 ml @ 600 mls/hr ONCE ONCE 10/19/16 09:00 10/19/16 09:04 EZETIMIBE (Zetia) 10 mg HS 10/10/16 21:00 10/18/16 21:24 10 MG Fenofibrate (Lofibra) 134 mg DAILY 10/10/16 14:00 10/18/16 15:01 134 MG Fentanyl Citrate (Fentanyl 2ml Vial) 50 mcg PRN Q2HR PRN 10/14/16 01:30 10/14/16 20:58 50 MCG Fentanyl Citrate (Fentanyl 5ml Vial) 250 mcg 1X ONCE 10/18/16 10:30 10/18/16 10:35 DC 10/18/16 11:55 250 MCG Gelatin (Gelfoam Size 12-7mm) 1 each STK-MED ONCE 10/13/16 14:44 10/13/16 14:45 DC Heparin Sodium (Porcine) (Hep Lock Adult) 500 unit 1X ONCE 10/18/16 11:30 10/18/16 11:35 DC 10/18/16 11:59 500 UNIT Heparin Sodium (Porcine) 500 unit 500 unit STK-MED ONCE 10/18/16 11:02 10/18/16 11:03 DC Heparin Sodium/ Sodium Chloride 1000 unit 1,000 unit 1X ONCE 10/18/16 11:30 10/18/16 11:35 DC 10/18/16 11:53 1,000 UNIT Hydromorphone HCl (Dilaudid) 0.5 mg PRN Q10MIN PRN 10/12/16 09:30 10/13/16 09:29 DC Idarucizumab (Praxbind) 5 gm 1X ONCE 10/12/16 16:30 10/12/16 16:31 DC 10/12/16 16:48 5 GM Info (Anti-Coagulation Monitoring By Pharmacy) 1 each PRN DAILY PRN 10/10/16 14:45 10/13/16 09:44 DC 10/11/16 08:28 1 EACH Info (PHARMACY MONITORING -- do not chart) 1 each PRN DAILY PRN 10/13/16 11:00 10/13/16 11:05 DC Iohexol 50 ml 50 ml STK-MED ONCE 10/12/16 11:38 10/12/16 11:39 DC Lactated Ringer's (Iv Lactated Ringers) 1,000 ml @ 0 mls/hr Q0M 10/12/16 09:29 10/12/16 21:28 DC 10/12/16 12:43 100 MLS/HR Levofloxacin (Levaquin) 250 mg DAILY06 10/16/16 06:00 10/19/16 06:05 250 MG Levofloxacin/ Dextrose (LEVAQUIN 250mg PREMIX) 50 ml @ 100 mls/hr 1X ONCE 10/13/16 13:30 10/13/16 13:59 DC 10/13/16 16:25 100 MLS/HR Lidocaine HCl 20 ml STK-MED ONCE 10/12/16 15:40 10/12/16 15:41 DC Lidocaine/ Epinephrine (Xylocaine 1%-Epi 1:100,000) 2 ml 1X ONCE 10/12/16 16:30 10/12/16 16:31 DC 10/12/16 16:28 2 ML Lidocaine/ Epinephrine 20 ml 20 ml 1X ONCE 10/18/16 11:30 10/18/16 11:35 DC 10/18/16 11:56 12 ML Lidocaine/Sodium Bicarbonate (Buffered Lidocaine 1%) 20 ml 1X ONCE 10/18/16 10:30 10/18/16 10:31 DC 10/18/16 11:54 6 ML Lidocaine/Sodium Bicarbonate 20 ml 20 ml 1X ONCE 10/13/16 13:15 10/13/16 13:16 DC 10/13/16 16:23 28 ML Losartan Potassium (Cozaar) 100 mg QHS 10/10/16 21:00 10/17/16 21:30 100 MG Magnesium Sulfate/ Dextrose (Magnesium Sulfate PREMIX 2GM) 50 ml @ 25 mls/hr 1X ONCE 10/19/16 05:45 10/19/16 07:44 DC 10/19/16 06:05 25 MLS/HR Midazolam HCl (Versed) 5 mg 1X ONCE 10/18/16 10:30 10/18/16 10:35 DC 10/18/16 11:55 2 MG Morphine Sulfate 1 mg 1 mg PRN Q10MIN PRN 10/12/16 09:30 10/13/16 09:29 DC Multivitamins/ Calcium (Thera M Plus) 1 tab DAILY 10/10/16 14:00 10/18/16 15:01 1 TAB Non-Formulary Medication 20 meq DAILYWSUP 10/10/16 17:00 UNV Ondansetron HCl (Zofran) 4 mg PRN Q4HRS PRN 10/18/16 14:45 Ondansetron HCl/ Sodium Chloride (Zofran/Iv Sodium Chloride 0.9% 50ml) 56 ml @ 112 mls/hr ONCE ONCE 10/19/16 08:30 10/19/16 08:59 Phenylephrine HCl 1 mg STK-MED ONCE 10/12/16 13:59 10/12/16 14:00 DC Potassium Chloride 40 meq/ Sodium Chloride 1,020 ml @ 100 mls/hr [id number] 10/17/16 09:15 10/18/16 05:38 DC 10/17/16 22:37 100 MLS/HR Potassium Chloride (KCl Premix 20meq) 50 ml @ 50 mls/hr PRN Q2HR PRN 10/16/16 14:45 Potassium Chloride (Klor-Con) 20 meq DAILYWSUP 10/10/16 17:00 10/10/16 17:00 DC Prednisone (Prednisone) 100 mg DAILY 10/19/16 09:00 10/23/16 09:01 Prochlorperazine Edisylate (Compazine) 5 mg PACU PRN PRN 10/12/16 09:30 10/13/16 09:29 DC Propofol (Diprivan) 20 ml @ As Directed STK-MED ONCE 10/12/16 12:25 10/12/16 12:26 DC Rituximab 775 mg/ Sodium Chloride 852.5 ml @ 213.125 mls/hr 1X ONCE 10/19/16 11:30 10/19/16 15:29 Sertraline HCl (Zoloft) 50 mg HS 10/10/16 21:00 10/18/16 21:25 50 MG Simvastatin (Zocor) 80 mg QHS 10/10/16 21:00 10/18/16 21:24 80 MG Sodium Polystyrene Sulfonate (Kayexalate) 45 gm 1X ONCE 10/10/16 13:30 10/10/16 13:44 DC 10/10/16 15:07 45 GM Sodium Chloride (Iv Sodium Chloride 0.9% 1000ml Bag) 1,000 ml @ 100 mls/hr Q10H 10/18/16 06:00 10/18/16 17:33 100 MLS/HR Sodium Chloride (Normal Saline Flush) 10 ml 1X PRN PRN 10/13/16 11:00 10/13/16 18:00 DC Spironolactone (Aldactone) 25 mg DAILY 10/10/16 14:00 10/10/16 14:17 DC Tamsulosin HCl (Flomax) 0.4 mg HS 10/10/16 21:00 10/18/16 21:25 0.4 MG Tbo-Filgrastim (Granix) 480 mcg QHS 10/20/16 21:00 10/29/16 23:00 Vancomycin HCl 250 ml @ 250 mls/hr 1X ONCE 10/18/16 11:30 10/18/16 12:29 DC 10/18/16 11:54 250 MLS/HR Vincristine Sulfate/Sodium Chloride (Oncovin/Iv Sodium Chloride 0.9% 50ml) 50 ml @ 275 mls/hr ONCE ONCE 10/19/16 09:00 10/19/16 09:10 Vitamin D (Vitamin D3) 5,000 unit DAILY 10/10/16 14:00 10/18/16 15:01 5,000 UNIT LAB Lab: Laboratory Tests Test 10/18/16 13:40 10/18/16 18:20 10/19/16 04:00 Potassium Level 3.6mmol/L (3.5-5.1) 3.5mmol/L (3.5-5.1) 3.5mmol/L (3.5-5.1) White Blood Count 4.5x10^3/uL (4.0-11.0) Red Blood Count 2.86x10^6/uL (4.30-5.70) Hemoglobin 8.8g/dL (13.0-17.5) Hematocrit 26.3% (39.0-53.0) Mean Corpuscular Volume 92fL (79-100) Mean Corpuscular Hemoglobin 31pg (25-35) Mean Corpuscular Hemoglobin Concent 33g/dL (31-37) Red Cell Distribution Width 14.7% (11.5-14.5) Platelet Count 153x10^3/uL (140-400) Neutrophils (%) (Auto) 76% (31-73) Lymphocytes (%) (Auto) 11% (24-48) Monocytes (%) (Auto) 10% (0-9) Eosinophils (%) (Auto) 3% (0-3) Basophils (%) (Auto) 0% (0-3) Neutrophils # (Auto) 3.4x10^3uL (1.8-7.7) Lymphocytes # (Auto) 0.5x10^3/uL (1.0-4.8) Monocytes # (Auto) 0.5x10^3/uL (0.0-1.1) Eosinophils # (Auto) 0.1x10^3/uL (0.0-0.7) Basophils # (Auto) 0.0x10^3/uL (0.0-0.2) Sodium Level 145mmol/L (136-145) Chloride Level 111mmol/L (98-107) Carbon Dioxide Level 28mmol/L (21-32) Anion Gap 6 (6-14) Blood Urea Nitrogen 31mg/dL (8-26) Creatinine 2.0mg/dL (0.7-1.3) Estimated GFR (Cockcroft-Gault) 32.1 BUN/Creatinine Ratio 16 (6-20) Glucose Level 86mg/dL (70-99) Calcium Level 11.0mg/dL (8.5-10.1) Phosphorus Level 3.5mg/dL (2.6-4.7) Magnesium Level 1.5mg/dL (1.8-2.4) Total Bilirubin 0.4mg/dL (0.2-1.0) Aspartate Amino Transf (AST/SGOT) 34U/L (15-37) Alanine Aminotransferase (ALT/SGPT) 14U/L (16-63) Alkaline Phosphatase 59U/L (46-116) Total Protein 5.5g/dL (6.4-8.2) Albumin 2.3g/dL (3.4-5.0) Albumin/Globulin Ratio 0.7 (1.0-1.7) AYALA LYMAN MD Oct 19, 2016 08:31
[2016-10-19] MEDS ORDERED: TOTAL VOLUME IV ONE (09:00)
[2016-10-19] MEDS ORDERED: CYCLOPHOSPHAMIDE IV ONE (09:00)
[2016-10-19] MEDS ORDERED: DOXORUBICIN IV ONE (09:00)
[2016-10-19] MEDS ORDERED: VINCRISTINE IV ONE (09:00)
[2016-10-19] MEDS: CARVEDILOL 12.5 MG TABLET PO SCH ×2 (09:05→17:23)
[2016-10-19] MEDS: FENOFIBRATE,MICRONIZED 134 MG CAPSULE PO SCH (09:07)
[2016-10-19] MEDS: CHOLECALCIFEROL (VITAMIN D3) 5,000 UNIT CAPSULE PO SCH (09:07)
[2016-10-19] MEDS: MULTIVITAMIN with MINERAL TABLET. PO SCH (09:07)
[2016-10-19] MEDS: PREDNISONE 20 MG TABLET PO SCH (09:07)
--- NOTE | 2016-10-19 09:07 | PDOC ---
Provider Note Provider Note DATE OF f/u: 10/19/2016 c/c - :f/u of Retroperitoneal mass in a patient has a history of lymphoma, hypercalcemia, bleeding after attempted cystoscopy and stent on 10/12/2016, status post Praxbind one dose on 10/12/2016. HISTORY OF PRESENT ILLNESS: The patient is an 81-year-old gentleman who has a history of melanoma treated by Dermatology several years ago and he had surgical resection. He is being followed by Dermatology for surveillance and a routine lab revealed elevated LDH level. He was then referred to Dr. Abisai Chung who is his primary care physician for further workup. Complete metabolic panel was done and he was noted to be in renal failure with a creatinine of 3.47 on 10/09/2016. He was also noted to have hypercalcemia of 13.5, LDH was 393. He was admitted to [facility] on 10/10/2016 for further evaluation. At the time of admission on 10/10/2016, his potassium was 5.9 with a creatinine of 5.5 and a calcium of 14.4. Nephrology was consulted. Intact PTH level was noted to be normal at 21, serum protein electrophoresis was normal, immunofixation was normal, kappa light chains and lambda light chains were elevated consistent with renal failure. He underwent an ultrasound on 10/10/2016 which revealed hydronephrosis, left greater than right along with a small renal cyst. CT scan of the abdomen and pelvis on 10/11/2016 revealed large soft tissue mass measuring 12.7 cm in width and 7.7 cm in AP dimension at the level of the aortic bifurcation. It was encased in the infrarenal abdominal aorta and the iliac arteries. Retroperitoneal fibrosis versus lymphoma or metastatic disease was in the differential diagnosis. 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 I was asked to see the patient for further evaluation of retroperitoneal mass. On 10/12/2016, the patient underwent cystoscopy and attempted stent placement and fulguration of hemorrhagic prostate by Dr. Arik Griggs. He had about 250 mL of blood loss and hence the stents were not placed. The patient had received Pradaxa on 10/11/2016 and hence he was treated with Praxbind at 4:30 p.m. on 10/12/2016. His urine is now clear and the bleeding has resolved. His INR on 10/12/2016 was 4.4. s/p nephrostomy tube placement and bx of abdominal mass 10/13/16. This revealed diffuse large B cell lymphoma. I also discussed the case in detail with Dr. Abisai Chung. PAST MEDICAL HISTORY: Melanoma, chronic kidney disease with a creatinine of 1.4 at baseline, abdominal aortic aneurysm 3.5 cm, atrial fibrillation for which he takes Pradaxa, benign prostatic hypertrophy, atherosclerotic heart disease, depression. REVIEW OF SYSTEMS: 12-point ROS done. He feels better. Hematuria better. PHYSICAL EXAMINATION: GENERAL APPEARANCE: The patient is an 81-year-old gentleman who is in no acute cardiorespiratory distress. CHEST: Bilaterally symmetrical. No crepitations or rhonchi heard. HEART: S1, S2 normal. ABDOMEN: Soft, nontender. No hepatosplenomegaly. CENTRAL NERVOUS SYSTEM: No focal neurological deficits. LABORATORY DATA: On 10/12/2016, PT 39.8, INR 4.4, PTT 127. CBC on 10/13/2016 revealed a WBC of 5.9, hemoglobin 9.4, platelet count 135. Prior CBC on 10/10/2016 revealed a hemoglobin of 11.8. Chemistry panel from this admission on 10/10/2016 revealed normal serum protein electrophoresis, no M-spike, immunofixation does not reveal any monoclonal gammopathy, total protein 5.8, albumin 2.5. PTH normal at 21, IgG 784, IgA 207, IgM 67. [place] lambda light chain ratio is 1.79. Free kappa light chain 49.87, free lambda light chain 27.84. IMPRESSION AND PLAN: 1. 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 s/p CT-guided biopsy of this mass 10/13/16, I d/w Dr Patel, and received final confirmation that this is diffuse large B cell lymphoma. CT neck/chest 10/17/15revealed cervical LN. Echo 10/11/16 reveals normal EF 60-65%. Bone scan 10/17/15: No definite evidence of metastatic disease. Increased uptake in the pelvis compatible and left clavicle compatible with Paget's changes. Intense uptake at L2 compatible with the known fracture at this level. Mild uptake at T6 suggesting an old compression fracturepending. s/p portacath, bone marrow bx 10/18/16, Start chemo with CHOP+R 10/19/16. I had detailed discussion with pt and family. I reviewed risks and benefits and they agree with chemo. I d/w Dr Chung and Dr Reilly and Dr Perez and chemo RN. Started allopurinol prophylaxis 10/17/16 (normal uric acid). 2. Hematuria/bleeding after procedure on 10/12/2016. He underwent cystoscopy and attempted stent placement which was unsuccessful. He had received Pradaxa on 10/11/2016 and hence he received Praxbind on 10/12/2016 at 4:30 p.m. The bleeding has now resolved 3. Coagulopathy due to Pradaxa improved after Praxbind infusion on 10/12/2016. 4. Renal failure. Appreciate Nephrology consultation, etiology thought to be due to bilateral hydronephrosis from abdominal mass. 5. Paget's disease. He also has a T6, L2 compression fracture, thought to be due to Paget's disease. 6. Melanoma diagnosed several years ago, being followed by Dermatology. 7. Serum protein electrophoresis and immunofixation is negative. There is no clinical evidence to suggest myeloma. 8. Hypercalcemia could be secondary to underlying malignancy. Continue miacalcin. JENNIFER QURESHI MD Oct 19, 2016 09:07
[2016-10-19] MEDS ORDERED: DIPHENHYDRAMINE HCL 25 MG CAPSULE PO ONE (11:00)
[2016-10-19] MEDS ORDERED: ACETAMINOPHEN 325 MG TABLET. PO ONE (11:30)
[2016-10-19] MEDS ORDERED: RITUXIMAB IV ONE (11:30)
--- NOTE | 2016-10-19 12:14 | PDOC ---
SUBJECTIVE ROS YURI/ elyte ABN Doing well per pt CVS: no Orthopnea, no CP RESP: no SOB, no ZEPEDA GI: no Nausea, no Vomiting : no Dysuria, no Urgency OBJECTIVE Vital Signs Vital Signs Date Time Temp Pulse Resp B/P Pulse Ox O2 Delivery O2 Flow Rate FiO2 10/19/16 09:05 90 155/97 10/19/16 07:00 97.8 16 94 Room Air 97.8 10/18/16 12:08 2.0 I & 0 Intake and Output 10/19/16 07:00 Intake Total 550 ml Output Total 1650 ml Balance -1100 ml Intake Oral 550 ml Drainage Total 1650 ml PHYSICAL EXAM Physical Exam General Appearance: Awake Alert Oriented x 3 In no Distress Eyes: VIsion Unchanged Conjunctiva Normal EN: No EN Drainage Mucous Memb. moist Neck: no JVD no JVP Supple no Thyromegaly CVS: S1 S2 soft Murmur No Gallop No Rub no Edema Resp: no Rales no Rhonchi no Acc. Muscle use GI: BS +ve NO Bruit Non Tender Non Distended : no CVA tenderness; (PCNs in place) no Suprapubic Tenderness ASSESSMENT/PLAN ARF: Creat better after HD x 2 and PCNs. watch Trend with PCNs in place; no labs today. PCNs with good UO; ? left Kidney not working well Uo is low from left. ^Krishna - suspect due to Underlying Lymphoma; restarted Miacalcin; Unable to use Pamidronate due to Renal Insuff. Ct IVF for now. Low Mag - Replace per prn order Low K - Replace per sliding scale - added to IVF - watch trend once CHemo starts (tu Lysis) Hypoalbuminemia - suspect due to Poor PO intake Anemia: (? part of Lymphoma) defer to Dr Ross/ Henry who is now on the case HTN: Current BP meds reviewed. See orders for changes. Lymphoma - Chemo starting today COMMENT/RELEVANT DATA Meds Current Medications Medications (Trade) Dose Ordered Sig/Selena Start Time Stop Time Status Last Admin Dose Admin Acetaminophen (Tylenol) 650 mg ONCE ONCE 10/19/16 11:30 10/19/16 11:31 DC 10/19/16 11:16 650 MG Acetaminophen/ Hydrocodone Bitart 1 tab 1 tab PRN Q4HRS PRN 10/15/16 17:45 10/18/16 21:25 1 TAB Allopurinol (Zyloprim) 100 mg DAILY 10/17/16 10:30 10/18/16 15:02 100 MG Apixaban (Eliquis) 2.5 mg BID 10/12/16 21:00 10/12/16 21:00 DC Aspirin (Children'S Aspirin) 81 mg DAILY08 10/10/16 14:00 10/12/16 19:37 DC 10/12/16 08:47 81 MG Calcitonin Madison (Miacalcin) 400 unit BID 10/10/16 21:00 10/12/16 23:52 DC 10/12/16 08:51 400 UNIT Calcitonin Madison 400 unit 400 unit BID 10/16/16 21:00 10/19/16 09:01 DC 10/18/16 21:26 400 UNIT Carvedilol (Coreg) 25 mg BIDWMEALS 10/10/16 17:00 10/19/16 09:05 25 MG Cefazolin Sodium 50 ml @ 100 mls/hr 1X ONCE 10/18/16 11:30 10/18/16 11:59 DC 10/18/16 11:59 100 MLS/HR Cefazolin Sodium (Ancef 1gm Ivpb For Omni) 50 ml @ As Directed STK-MED ONCE 10/18/16 11:18 10/18/16 11:19 DC Cyclophosphamide 1500 mg/Sodium Chloride 250 ml @ 500 mls/hr ONCE ONCE 10/19/16 09:00 10/19/16 09:29 DC 10/19/16 10:13 500 MLS/HR Dabigatran (Pradaxa) 75 mg BID 10/11/16 09:00 10/12/16 14:56 DC 10/11/16 10:03 75 MG Dexamethasone Sodium Phosphate (Decadron) 20 mg STK-MED ONCE 10/12/16 12:25 10/12/16 12:26 DC Dexamethasone 20 mg 20 mg 1X ONCE 10/19/16 08:30 10/19/16 08:31 DC 10/19/16 09:07 20 MG Diphenhydramine HCl (Benadryl) 25 mg 1X PRN PRN 10/12/16 18:00 10/13/16 13:06 DC Diphenhydramine HCl 50 mg 50 mg ONCE ONCE 10/19/16 11:00 10/19/16 11:01 DC 10/19/16 11:16 50 MG Doxorubicin HCl 100 mg/ Miscellaneous 50 ml @ 600 mls/hr ONCE ONCE 10/19/16 09:00 10/19/16 09:04 DC 10/19/16 11:11 600 MLS/HR EZETIMIBE (Zetia) 10 mg HS 10/10/16 21:00 10/18/16 21:24 10 MG Fenofibrate (Lofibra) 134 mg DAILY 10/10/16 14:00 10/19/16 09:07 134 MG Fentanyl Citrate (Fentanyl 2ml Vial) 50 mcg PRN Q2HR PRN 10/14/16 01:30 10/14/16 20:58 50 MCG Fentanyl Citrate (Fentanyl 5ml Vial) 250 mcg 1X ONCE 10/18/16 10:30 10/18/16 10:35 DC 10/18/16 11:55 250 MCG Gelatin (Gelfoam Size 12-7mm) 1 each STK-MED ONCE 10/13/16 14:44 10/13/16 14:45 DC Heparin Sodium (Porcine) (Hep Lock Adult) 500 unit 1X ONCE 10/18/16 11:30 10/18/16 11:35 DC 10/18/16 11:59 500 UNIT Heparin Sodium (Porcine) 500 unit 500 unit STK-MED ONCE 10/18/16 11:02 10/18/16 11:03 DC Heparin Sodium/ Sodium Chloride 1000 unit 1,000 unit 1X ONCE 10/18/16 11:30 10/18/16 11:35 DC 10/18/16 11:53 1,000 UNIT Hydromorphone HCl (Dilaudid) 0.5 mg PRN Q10MIN PRN 10/12/16 09:30 10/13/16 09:29 DC Idarucizumab (Praxbind) 5 gm 1X ONCE 10/12/16 16:30 10/12/16 16:31 DC 10/12/16 16:48 5 GM Info (Anti-Coagulation Monitoring By Pharmacy) 1 each PRN DAILY PRN 10/10/16 14:45 10/13/16 09:44 DC 10/11/16 08:28 1 EACH Info (PHARMACY MONITORING -- do not chart) 1 each PRN DAILY PRN 10/13/16 11:00 10/13/16 11:05 DC Iohexol 50 ml 50 ml STK-MED ONCE 10/12/16 11:38 10/12/16 11:39 DC Lactated Ringer's (Iv Lactated Ringers) 1,000 ml @ 0 mls/hr Q0M 10/12/16 09:29 10/12/16 21:28 DC 10/12/16 12:43 100 MLS/HR Levofloxacin (Levaquin) 250 mg DAILY06 10/16/16 06:00 10/19/16 06:05 250 MG Levofloxacin/ Dextrose (LEVAQUIN 250mg PREMIX) 50 ml @ 100 mls/hr 1X ONCE 10/13/16 13:30 10/13/16 13:59 DC 10/13/16 16:25 100 MLS/HR Lidocaine HCl 20 ml STK-MED ONCE 10/12/16 15:40 10/12/16 15:41 DC Lidocaine/ Epinephrine (Xylocaine 1%-Epi 1:100,000) 2 ml 1X ONCE 10/12/16 16:30 10/12/16 16:31 DC 10/12/16 16:28 2 ML Lidocaine/ Epinephrine 20 ml 20 ml 1X ONCE 10/18/16 11:30 10/18/16 11:35 DC 10/18/16 11:56 12 ML Lidocaine/Sodium Bicarbonate (Buffered Lidocaine 1%) 20 ml 1X ONCE 10/18/16 10:30 10/18/16 10:31 DC 10/18/16 11:54 6 ML Lidocaine/Sodium Bicarbonate 20 ml 20 ml 1X ONCE 10/13/16 13:15 10/13/16 13:16 DC 10/13/16 16:23 28 ML Losartan Potassium (Cozaar) 100 mg QHS 10/10/16 21:00 10/17/16 21:30 100 MG Magnesium Sulfate/ Dextrose (Magnesium Sulfate PREMIX 2GM) 50 ml @ 25 mls/hr 1X ONCE 10/19/16 05:45 10/19/16 07:44 DC 10/19/16 06:05 25 MLS/HR Midazolam HCl (Versed) 5 mg 1X ONCE 10/18/16 10:30 10/18/16 10:35 DC 10/18/16 11:55 2 MG Morphine Sulfate 1 mg 1 mg PRN Q10MIN PRN 10/12/16 09:30 10/13/16 09:29 DC Multivitamins/ Calcium (Thera M Plus) 1 tab DAILY 10/10/16 14:00 10/19/16 09:07 1 TAB Non-Formulary Medication 20 meq DAILYWSUP 10/10/16 17:00 UNV Ondansetron HCl (Zofran) 4 mg PRN Q4HRS PRN 10/18/16 14:45 Ondansetron HCl/ Sodium Chloride (Zofran/Iv Sodium Chloride 0.9% 50ml) 56 ml @ 112 mls/hr ONCE ONCE 10/19/16 08:30 10/19/16 08:59 DC 10/19/16 09:06 112 MLS/HR Phenylephrine HCl 1 mg STK-MED ONCE 10/12/16 13:59 10/12/16 14:00 DC Potassium Chloride 40 meq/ Sodium Chloride 1,020 ml @ 100 mls/hr [id number] 10/17/16 09:15 10/18/16 05:38 DC 10/17/16 22:37 100 MLS/HR Potassium Chloride (KCl Premix 20meq) 50 ml @ 50 mls/hr PRN Q2HR PRN 10/16/16 14:45 Potassium Chloride (Klor-Con) 20 meq DAILYWSUP 10/10/16 17:00 10/10/16 17:00 DC Prednisone (Prednisone) 100 mg DAILY 10/19/16 09:00 10/23/16 09:01 10/19/16 09:07 100 MG Prochlorperazine Edisylate (Compazine) 5 mg PACU PRN PRN 10/12/16 09:30 10/13/16 09:29 DC Propofol (Diprivan) 20 ml @ As Directed STK-MED ONCE 10/12/16 12:25 10/12/16 12:26 DC Rituximab 775 mg/ Sodium Chloride 852.5 ml @ 213.125 mls/hr 1X ONCE 10/19/16 11:30 10/19/16 15:29 10/19/16 12:00 213.125 MLS/HR Sertraline HCl (Zoloft) 50 mg HS 10/10/16 21:00 10/18/16 21:25 50 MG Simvastatin (Zocor) 80 mg QHS 10/10/16 21:00 10/18/16 21:24 80 MG Sodium Polystyrene Sulfonate (Kayexalate) 45 gm 1X ONCE 10/10/16 13:30 10/10/16 13:44 DC 10/10/16 15:07 45 GM Sodium Chloride (Iv Sodium Chloride 0.9% 1000ml Bag) 1,000 ml @ 100 mls/hr Q10H 10/18/16 06:00 10/18/16 17:33 100 MLS/HR Sodium Chloride (Normal Saline Flush) 10 ml 1X PRN PRN 10/13/16 11:00 10/13/16 18:00 DC Spironolactone (Aldactone) 25 mg DAILY 10/10/16 14:00 10/10/16 14:17 DC Tamsulosin HCl (Flomax) 0.4 mg HS 10/10/16 21:00 10/18/16 21:25 0.4 MG Tbo-Filgrastim (Granix) 480 mcg QHS 10/20/16 21:00 10/29/16 23:00 Vancomycin HCl 250 ml @ 250 mls/hr 1X ONCE 10/18/16 11:30 10/18/16 12:29 DC 10/18/16 11:54 250 MLS/HR Vincristine Sulfate/Sodium Chloride (Oncovin/Iv Sodium Chloride 0.9% 50ml) 50 ml @ 275 mls/hr ONCE ONCE 10/19/16 09:00 10/19/16 09:10 DC 10/19/16 11:14 275 MLS/HR Vitamin D (Vitamin D3) 5,000 unit DAILY 10/10/16 14:00 10/19/16 09:07 5,000 UNIT Lab Laboratory Tests Test 10/18/16 13:40 10/18/16 18:20 10/19/16 04:00 Potassium Level 3.6mmol/L (3.5-5.1) 3.5mmol/L (3.5-5.1) 3.5mmol/L (3.5-5.1) White Blood Count 4.5x10^3/uL (4.0-11.0) Red Blood Count 2.86x10^6/uL (4.30-5.70) Hemoglobin 8.8g/dL (13.0-17.5) Hematocrit 26.3% (39.0-53.0) Mean Corpuscular Volume 92fL (79-100) Mean Corpuscular Hemoglobin 31pg (25-35) Mean Corpuscular Hemoglobin Concent 33g/dL (31-37) Red Cell Distribution Width 14.7% (11.5-14.5) Platelet Count 153x10^3/uL (140-400) Neutrophils (%) (Auto) 76% (31-73) Lymphocytes (%) (Auto) 11% (24-48) Monocytes (%) (Auto) 10% (0-9) Eosinophils (%) (Auto) 3% (0-3) Basophils (%) (Auto) 0% (0-3) Neutrophils # (Auto) 3.4x10^3uL (1.8-7.7) Lymphocytes # (Auto) 0.5x10^3/uL (1.0-4.8) Monocytes # (Auto) 0.5x10^3/uL (0.0-1.1) Eosinophils # (Auto) 0.1x10^3/uL (0.0-0.7) Basophils # (Auto) 0.0x10^3/uL (0.0-0.2) Sodium Level 145mmol/L (136-145) Chloride Level 111mmol/L (98-107) Carbon Dioxide Level 28mmol/L (21-32) Anion Gap 6 (6-14) Blood Urea Nitrogen 31mg/dL (8-26) Creatinine 2.0mg/dL (0.7-1.3) Estimated GFR (Cockcroft-Gault) 32.1 BUN/Creatinine Ratio 16 (6-20) Glucose Level 86mg/dL (70-99) Calcium Level 11.0mg/dL (8.5-10.1) Phosphorus Level 3.5mg/dL (2.6-4.7) Magnesium Level 1.5mg/dL (1.8-2.4) Total Bilirubin 0.4mg/dL (0.2-1.0) Aspartate Amino Transf (AST/SGOT) 34U/L (15-37) Alanine Aminotransferase (ALT/SGPT) 14U/L (16-63) Alkaline Phosphatase 59U/L (46-116) Total Protein 5.5g/dL (6.4-8.2) Albumin 2.3g/dL (3.4-5.0) Albumin/Globulin Ratio 0.7 (1.0-1.7) DIAZ GUNN MD Oct 19, 2016 12:14
[2016-10-19] MEDS: ALLOPURINOL 100 MG TABLET. PO SCH (13:50)
[2016-10-19] MEDS: CALCITONIN,SALMON 400 UNIT/2 ML VIAL. SQ SCH (13:50)
[2016-10-19] MEDS: SERTRALINE 50 MG TABLET. PO SCH (21:16)
[2016-10-19] MEDS: SIMVASTATIN 40 MG TABLET. PO SCH (21:16)
[2016-10-19] MEDS: LOSARTAN POTASSIUM 50 MG TABLET. PO SCH (21:16)
[2016-10-19] MEDS: TAMSULOSIN 0.4 MG CAP.ER.24H. PO SCH (21:16)
[2016-10-19] MEDS: EZETIMIBE 10 MG TABLET PO SCH (21:17)
[2016-10-20 03:00] VITALS: BP 130/75
[2016-10-20] MEDS: LEVOFLOXACIN 250 MG TABLET. PO SCH (06:34)
[2016-10-20 07:00] VITALS: BP 109/70
[2016-10-20 07:35] LABS: ALBUMIN 2.6 g/dL (3.4-5.0); CREATININE 1.9 mg/dL (0.7-1.3); PHOSPHORUS 3.6 mg/dL (2.6-4.7); POTASSIUM 3.4 mmol/L (3.5-5.1)
[2016-10-20] MEDS: IV NORMAL SALINE 1000ML BAG 1,000 ML IV SCH ×2 (08:00→16:38)
--- NOTE | 2016-10-20 09:06 | PDOC ---
Provider Note Provider Note DATE OF f/u: 10/20/2016 c/c - :f/u of Retroperitoneal mass in a patient has a history of lymphoma, hypercalcemia, bleeding after attempted cystoscopy and stent on 10/12/2016, status post Praxbind one dose on 10/12/2016. HISTORY OF PRESENT ILLNESS: The patient is an 81-year-old gentleman who has a history of melanoma treated by Dermatology several years ago and he had surgical resection. He is being followed by Dermatology for surveillance and a routine lab revealed elevated LDH level. He was then referred to Dr. Abisai Chung who is his primary care physician for further workup. Complete metabolic panel was done and he was noted to be in renal failure with a creatinine of 3.47 on 10/09/2016. He was also noted to have hypercalcemia of 13.5, LDH was 393. He was admitted to [facility] on 10/10/2016 for further evaluation. At the time of admission on 10/10/2016, his potassium was 5.9 with a creatinine of 5.5 and a calcium of 14.4. Nephrology was consulted. Intact PTH level was noted to be normal at 21, serum protein electrophoresis was normal, immunofixation was normal, kappa light chains and lambda light chains were elevated consistent with renal failure. He underwent an ultrasound on 10/10/2016 which revealed hydronephrosis, left greater than right along with a small renal cyst. CT scan of the abdomen and pelvis on 10/11/2016 revealed large soft tissue mass measuring 12.7 cm in width and 7.7 cm in AP dimension at the level of the aortic bifurcation. It was encased in the infrarenal abdominal aorta and the iliac arteries. Retroperitoneal fibrosis versus lymphoma or metastatic disease was in the differential diagnosis. 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 I was asked to see the patient for further evaluation of retroperitoneal mass. On 10/12/2016, the patient underwent cystoscopy and attempted stent placement and fulguration of hemorrhagic prostate by Dr. Arik Griggs. He had about 250 mL of blood loss and hence the stents were not placed. The patient had received Pradaxa on 10/11/2016 and hence he was treated with Praxbind at 4:30 p.m. on 10/12/2016. His urine is now clear and the bleeding has resolved. His INR on 10/12/2016 was 4.4. s/p nephrostomy tube placement and bx of abdominal mass 10/13/16. This revealed diffuse large B cell lymphoma. I also discussed the case in detail with Dr. Abisai Chung. PAST MEDICAL HISTORY: Melanoma, chronic kidney disease with a creatinine of 1.4 at baseline, abdominal aortic aneurysm 3.5 cm, atrial fibrillation for which he takes Pradaxa, benign prostatic hypertrophy, atherosclerotic heart disease, depression. REVIEW OF SYSTEMS: 12-point ROS done. He feels better. Hematuria better. s/p chemo 10/19/16, no toxicities PHYSICAL EXAMINATION: GENERAL APPEARANCE: The patient is an 81-year-old gentleman who is in no acute cardiorespiratory distress. CHEST: Bilaterally symmetrical. No crepitations or rhonchi heard. HEART: S1, S2 normal. ABDOMEN: Soft, nontender. No hepatosplenomegaly. CENTRAL NERVOUS SYSTEM: No focal neurological deficits. LABORATORY DATA: On 10/12/2016, PT 39.8, INR 4.4, PTT 127. CBC on 10/13/2016 revealed a WBC of 5.9, hemoglobin 9.4, platelet count 135. Prior CBC on 10/10/2016 revealed a hemoglobin of 11.8. Chemistry panel from this admission on 10/10/2016 revealed normal serum protein electrophoresis, no M-spike, immunofixation does not reveal any monoclonal gammopathy, total protein 5.8, albumin 2.5. PTH normal at 21, IgG 784, IgA 207, IgM 67. [place] lambda light chain ratio is 1.79. Free kappa light chain 49.87, free lambda light chain 27.84. IMPRESSION AND PLAN: 1. 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 s/p CT-guided biopsy of this mass 10/13/16, LDH 334 on 10/16/16. I d/w Dr Patel, and received final confirmation that this is diffuse large B cell lymphoma. CT neck/chest 10/17/15revealed cervical LN. Echo 10/11/16 reveals normal EF 60-65%. Bone scan 10/17/15: No definite evidence of metastatic disease. Increased uptake in the pelvis compatible and left clavicle compatible with Paget's changes. Intense uptake at L2 compatible with the known fracture at this level. Mild uptake at T6 suggesting an old compression fracturepending. s/p portacath, bone marrow bx 10/18/16, S/p chemo with CHOP+R 10/19/16. Continue prednisone 100 mg daily to complete 5 days (day 2 today). Monitor for toxicities of chemo. No side effects so far, I d/w Dr Chung. Continue allopurinol prophylaxis since 10/17/16 (normal uric acid). Prophylactic Granix 480 mcg daily s/q x 10 days to start today 10/20/2016. 2. Hematuria/bleeding after procedure on 10/12/2016. He underwent cystoscopy and attempted stent placement which was unsuccessful. He had received Pradaxa on 10/11/2016 and hence he received Praxbind on 10/12/2016 at 4:30 p.m. The bleeding has now resolved 3. Coagulopathy due to Pradaxa improved after Praxbind infusion on 10/12/2016. 4. Renal failure. Appreciate Nephrology consultation, etiology thought to be due to bilateral hydronephrosis from abdominal mass. 5. Paget's disease. He also has a T6, L2 compression fracture, thought to be due to Paget's disease. 6. Melanoma diagnosed several years ago, being followed by Dermatology. 7. Serum protein electrophoresis and immunofixation is negative. There is no clinical evidence to suggest myeloma. 8. Hypercalcemia could be secondary to underlying malignancy. Continue miacalcin. JENNIFER QURESHI MD Oct 20, 2016 09:06
[2016-10-20] MEDS: ALLOPURINOL 100 MG TABLET. PO SCH (09:10)
[2016-10-20] MEDS: MULTIVITAMIN with MINERAL TABLET. PO SCH (09:10)
[2016-10-20] MEDS: CHOLECALCIFEROL (VITAMIN D3) 5,000 UNIT CAPSULE PO SCH (09:10)
[2016-10-20] MEDS: PREDNISONE 20 MG TABLET PO SCH (09:10)
[2016-10-20] MEDS: FENOFIBRATE,MICRONIZED 134 MG CAPSULE PO SCH (09:10)
[2016-10-20] MEDS: CARVEDILOL 12.5 MG TABLET PO SCH ×2 (09:11→16:37)
--- NOTE | 2016-10-20 10:17 | PDOC ---
PROGRESS NOTES Subjective Subjective Pt awake and pleasant. Denies n/v. States he is feeling better each day, even with chemo yesterday. Objective Objective Pt awake and alert. NAD. VSS. Afebrile. Lungs CTA bilat. Resp even and unlabored. Heart with RRR. No murmurs. No pedal edema. Abdomen soft, nondistended, and nontender. 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 -s/p CT-guided biopsy of this mass 10/13/16 -CT neck/chest 10/17/15: revealed cervical LN. -Echo 10/11/16 reveals normal EF 60-65%. -Bone scan 10/17/15: No definite evidence of metastatic disease. Increased uptake in the pelvis compatible and left clavicle compatible with Paget's changes. Intense uptake at L2 compatible with the known fracture at this level. Mild uptake at T6 suggesting an old compression fracture pending. -Portacath and bone marrow bx 10/18/16, -Chemo initiated 10/19/16. Pt tolerated well. 2. Acute renal failure -Creat 5.5 upon admission, 1.9 this am. Baseline 1.4 -Renal US: Left greater than right hydronephrosis with small left renal cyst -Renal team consulting -Coleman placed -Bilat nephrostomy tubes placed -Uretal stenting attempted on 10/12, unsuccessful d/t prostate bleeding. Prodaxa stopped and reversal agent given. No additional bleeding. Hgb stable -Pt will require nephrostomy tubes in place till abdominal tumor shrinks. Onc optimistic for rapid response with chemo, possibly 2-3 weeks. 3. Hyperkalemia, now hypokalemia -K 5.9 upon admission, 5.0 this am following Kayexalate dosing. 3.4 this am. Prn KCl ordered -Recheck BMP in am 4. Hypercalcemia -Ca 14.4 upon admission, 11.9 following Miacalcin x3. 11 this am -secondary to malignancy 5. Engagement Lead fall with Paget's disease -Hematoma present on left forehead -pt with c/o back pain -spine x-rays: L2 and L3 vertebral compression fractures of indeterminate ages. Probable associated spinal stenosis at L2-3 due to retropulsion at the L2 fracture site. Moderate multilevel degenerative change. Distal abdominal aortic aneurysm. -bone scan: Increased uptake in the pelvis compatible and left clavicle compatible with Paget's changes. Intense uptake at L2 compatible with the known fracture at this level. Mild uptake at T6 suggesting an old compression fracture pending. Dc hopeful for early next week. Pt will most likely Dc to SNF for rehab. SW consulting to help with Dc plans. Comment Review of Relevant I have reviewed the following items juan (where applicable) has been applied. Labs Laboratory Tests Test 10/18/16 13:40 10/18/16 18:20 10/19/16 04:00 10/20/16 06:40 Potassium Level 3.6mmol/L (3.5-5.1) 3.5mmol/L (3.5-5.1) 3.5mmol/L (3.5-5.1) 3.4mmol/L (3.5-5.1) White Blood Count 4.5x10^3/uL (4.0-11.0) Red Blood Count 2.86x10^6/uL (4.30-5.70) Hemoglobin 8.8g/dL (13.0-17.5) Hematocrit 26.3% (39.0-53.0) Mean Corpuscular Volume 92fL (79-100) Mean Corpuscular Hemoglobin 31pg (25-35) Mean Corpuscular Hemoglobin Concent 33g/dL (31-37) Red Cell Distribution Width 14.7% (11.5-14.5) Platelet Count 153x10^3/uL (140-400) Neutrophils (%) (Auto) 76% (31-73) Lymphocytes (%) (Auto) 11% (24-48) Monocytes (%) (Auto) 10% (0-9) Eosinophils (%) (Auto) 3% (0-3) Basophils (%) (Auto) 0% (0-3) Neutrophils # (Auto) 3.4x10^3uL (1.8-7.7) Lymphocytes # (Auto) 0.5x10^3/uL (1.0-4.8) Monocytes # (Auto) 0.5x10^3/uL (0.0-1.1) Eosinophils # (Auto) 0.1x10^3/uL (0.0-0.7) Basophils # (Auto) 0.0x10^3/uL (0.0-0.2) Sodium Level 145mmol/L (136-145) 143mmol/L (136-145) Chloride Level 111mmol/L (98-107) 108mmol/L (98-107) Carbon Dioxide Level 28mmol/L (21-32) 27mmol/L (21-32) Anion Gap 6 (6-14) 8 (6-14) Blood Urea Nitrogen 31mg/dL (8-26) 34mg/dL (8-26) Creatinine 2.0mg/dL (0.7-1.3) 1.9mg/dL (0.7-1.3) Estimated GFR (Cockcroft-Gault) 32.1 34.0 BUN/Creatinine Ratio 16 (6-20) Glucose Level 86mg/dL (70-99) 134mg/dL (70-99) Calcium Level 11.0mg/dL (8.5-10.1) 11.0mg/dL (8.5-10.1) Phosphorus Level 3.5mg/dL (2.6-4.7) 3.6mg/dL (2.6-4.7) Magnesium Level 1.5mg/dL (1.8-2.4) Total Bilirubin 0.4mg/dL (0.2-1.0) Aspartate Amino Transf (AST/SGOT) 34U/L (15-37) Alanine Aminotransferase (ALT/SGPT) 14U/L (16-63) Alkaline Phosphatase 59U/L (46-116) Total Protein 5.5g/dL (6.4-8.2) Albumin 2.3g/dL (3.4-5.0) 2.6g/dL (3.4-5.0) Albumin/Globulin Ratio 0.7 (1.0-1.7) Laboratory Tests Test 10/20/16 06:40 Sodium Level 143mmol/L (136-145) Potassium Level 3.4mmol/L (3.5-5.1) Chloride Level 108mmol/L (98-107) Carbon Dioxide Level 27mmol/L (21-32) Anion Gap 8 (6-14) Blood Urea Nitrogen 34mg/dL (8-26) Creatinine 1.9mg/dL (0.7-1.3) Estimated GFR (Cockcroft-Gault) 34.0 Glucose Level 134mg/dL (70-99) Calcium Level 11.0mg/dL (8.5-10.1) Phosphorus Level 3.6mg/dL (2.6-4.7) Albumin 2.6g/dL (3.4-5.0) Medications Current Medications Sodium Chloride 1,000 ml @ 100 mls/hr Q10H IV Last administered on 10/11/16 08 :49; Start 10/10/16 at 11:00; Stop 10/11/16 at 21:27; Status DC Magnesium Sulfate/ Dextrose (Magnesium Sulfate PREMIX 2GM) 50 ml @ 25 mls/hr PRN DAILY PRN IV for Mag < 1.7 on am labs Last administered on 10/14/16 13:04; Start 10/10/16 at 13:30; Stop 10/16/16 at 16:08; Status DC Sodium Polystyrene Sulfonate (Kayexalate) 45 gm 1X ONCE PO Last administered on 10/10/16 15:07; Start 10/10/16 at 13:30; Stop 10/10/16 at 13:44; Status DC Aspirin (Children'S Aspirin) 81 mg DAILY08 PO Last administered on 10/12/16 08: 47; Start 10/10/16 at 14:00; Stop 10/12/16 at 19:37; Status DC Dabigatran (Pradaxa) 150 mg BID PO Last administered on 10/10/16 21:48; Start 10/10/16 at 21:00; Stop 10/11/16 at 08:25; Status DC Potassium Chloride (Klor-Con) 20 meq DAILYWSUP PO ; Start 10/10/16 at 17:00; Stop 10/10/16 at 17:00; Status DC Sertraline HCl (Zoloft) 50 mg HS PO Last administered on 10/19/16 21:16; Start 10/10/16 at 21:00 Spironolactone (Aldactone) 25 mg DAILY PO ; Start 10/10/16 at 14:00; Stop at 14:17; Status DC Tamsulosin HCl (Flomax) 0.4 mg HS PO Last administered on 10/19/16 21:16; Start 10/10/16 at 21:00 Carvedilol (Coreg) 25 mg BIDWMEALS PO Last administered on 10/20/16 09:11; Start 10/10/16 at 17:00 Vitamin D (Vitamin D3) 5,000 unit DAILY PO Last administered on 10/20/16 09:10 ; Start 10/10/16 at 14:00 EZETIMIBE (Zetia) 10 mg DAILY PO ; Start 10/10/16 at 14:00; Stop 10/10/16 at 21: 00; Status Cancel Fenofibrate (Lofibra) 134 mg DAILY PO Last administered on 10/20/16 09:10; Start 10/10/16 at 14:00 Losartan Potassium (Cozaar) 100 mg QHS PO Last administered on 10/19/16 21:16; Start 10/10/16 at 21:00 Multivitamins/ Calcium (Thera M Plus) 1 tab DAILY PO Last administered on 09:10; Start 10/10/16 at 14:00 Non-Formulary Medication 20 meq DAILYWSUP PO ; Start 10/10/16 at 17:00; Status UNV Simvastatin (Zocor) 80 mg QHS PO Last administered on 10/19/16 21:16; Start at 21:00 Calcitonin Bennett (Miacalcin) 400 unit BID SQ Last administered on 10/12/16 08: 51; Start 10/10/16 at 21:00; Stop 10/12/16 at 23:52; Status DC Info (Anti-Coagulation Monitoring By Pharmacy) 1 each PRN DAILY PRN MC SEE COMMENTS Last administered on 10/11/16 08:28; Start 10/10/16 at 14:45; Stop 10/13 at 09:44; Status DC Ondansetron HCl (Zofran) 4 mg PRN Q6HRS PRN IV NAUSEA/VOMITING; Start 10/10/16 at 15:30; Status Cancel EZETIMIBE (Zetia) 10 mg HS PO Last administered on 10/19/16 21:17; Start at 21:00 Dabigatran (Pradaxa) 75 mg BID PO Last administered on 10/11/16 10:03; Start at 09:00; Stop 10/12/16 at 14:56; Status DC Ondansetron HCl (Zofran) 4 mg PRN Q6HRS PRN IV Nausea; Start 10/12/16 at 09:30; Stop 10/13/16 at 09:29; Status DC Fentanyl Citrate (Fentanyl 2ml Vial) 25 mcg PRN Q5MIN PRN IV MILD PAIN; Start 10/12/16 at 09:30; Stop 10/13/16 at 09:29; Status DC Fentanyl Citrate (Fentanyl 2ml Vial) 50 mcg PRN Q5MIN PRN IV MODERATE PAIN; Start 10/12/16 at 09:30; Stop 10/13/16 at 09:29; Status DC Morphine Sulfate 1 mg 1 mg PRN Q10MIN PRN IV SEVERE PAIN; Start 10/12/16 at 09: 30; Stop 10/13/16 at 09:29; Status DC Lactated Ringer's (Iv Lactated Ringers) 1,000 ml @ 0 mls/hr Q0M IV Last administered on 10/12/16 12:43; Start 10/12/16 at 09:29; Stop 10/12/16 at 21:28; Status DC Lidocaine HCl 2 ml 1X PRN PRN ID IV START; Start 10/12/16 at 09:30; Stop at 09:29; Status DC Hydromorphone HCl (Dilaudid) 0.5 mg PRN Q10MIN PRN IV SEV PAIN,Second choice; Start 10/12/16 at 09:30; Stop 10/13/16 at 09:29; Status DC Prochlorperazine Edisylate 5 mg 5 mg PACU PRN PRN IV NAUSEA; Start 10/12/16 at 09:30; Stop 10/13/16 at 09:29; Status DC Levofloxacin/ Dextrose (LEVAQUIN 250mg PREMIX) 50 ml @ 50 mls/hr Q24H IV Last administered on 10/15/16 08:39; Start 10/12/16 at 10:00; Stop 10/15/16 at 15:52; Status DC Iohexol 50 ml 50 ml STK-MED ONCE .ROUTE ; Start 10/12/16 at 11:38; Stop 10/12/16 at 11:39; Status DC Propofol (Diprivan) 20 ml @ As Directed STK-MED ONCE IV ; Start 10/12/16 at 12:25 ; Stop 10/12/16 at 12:26; Status DC Lidocaine HCl 100 mg STK-MED ONCE .ROUTE ; Start 10/12/16 at 12:25; Stop 10/12/16 at 12:26; Status DC Dexamethasone Sodium Phosphate (Decadron) 20 mg STK-MED ONCE .ROUTE ; Start 10/12 at 12:25; Stop 10/12/16 at 12:26; Status DC Ondansetron HCl (Zofran) 4 mg STK-MED ONCE .ROUTE ; Start 10/12/16 at 12:25; Stop 10/12/16 at 12:26; Status DC Fentanyl Citrate (Fentanyl 2ml Vial) 100 mcg STK-MED ONCE .ROUTE ; Start at 12:25; Stop 10/12/16 at 12:26; Status DC Phenylephrine HCl 1 mg STK-MED ONCE IV ; Start 10/12/16 at 13:59; Stop 10/12/16 at 14:00; Status DC Apixaban (Eliquis) 2.5 mg BID PO ; Start 10/12/16 at 21:00; Stop 10/12/16 at 21:00 ; Status DC Idarucizumab (Praxbind) 5 gm 1X ONCE IV Last administered on 10/12/16 16:48; Start 10/12/16 at 16:30; Stop 10/12/16 at 16:31; Status DC Heparin Sodium (Porcine) 10,000 unit STK-MED ONCE .ROUTE ; Start 10/12/16 at 15: 40; Stop 10/12/16 at 15:41; Status DC Lidocaine HCl 20 ml 20 ml STK-MED ONCE .ROUTE ; Start 10/12/16 at 15:40; Stop 10/12/16 at 15:41; Status DC Heparin Sodium/ Sodium Chloride 500 ml @ As Directed STK-MED ONCE .ROUTE ; Start 10/12/16 at 15:40; Stop 10/12/16 at 15:41; Status DC Lidocaine/ Epinephrine (Xylocaine 1%-Epi 1:100,000) 20 ml STK-MED ONCE .ROUTE ; Start 10/12/16 at 15:43; Stop 10/12/16 at 15:44; Status DC Heparin Sodium (Porcine) 2,400 unit 1X ONCE INT CAT Last administered on 16:27; Start 10/12/16 at 16:30; Stop 10/12/16 at 16:31; Status DC Heparin Sodium/ Sodium Chloride 6 unit 1X ONCE IV Last administered on 16:27; Start 10/12/16 at 16:30; Stop 10/12/16 at 16:31; Status DC Lidocaine/ Epinephrine 2 ml 2 ml 1X ONCE IJ Last administered on 10/12/16 16: 28; Start 10/12/16 at 16:30; Stop 10/12/16 at 16:31; Status DC Sodium Chloride (Iv Sodium Chloride 0.9% 1000ml Bag) 1,000 ml @ 1,000 mls/hr Q1H PRN IV hypotension; Start 10/12/16 at 17:48; Stop 10/12/16 at 23:47; Status DC Diphenhydramine HCl (Benadryl) 25 mg 1X PRN PRN IV ITCHING; Start 10/12/16 at 18 :00; Stop 10/13/16 at 13:06; Status DC Diphenhydramine HCl (Benadryl) 25 mg 1X PRN PRN IV ITCHING; Start 10/12/16 at 18 :00; Stop 10/13/16 at 13:06; Status DC Sodium Chloride (Normal Saline Flush) 10 ml 1X PRN PRN IV AP catheter pack; Start 10/12/16 at 18:00; Stop 10/13/16 at 13:06; Status DC Sodium Chloride 10 ml 10 ml 1X PRN PRN IV MEATMAN catheter pack; Start 10/12/16 at 18 :00; Stop 10/13/16 at 13:06; Status DC Sodium Chloride (Iv Sodium Chloride 0.9% 1000ml Bag) 1,000 ml @ 400 mls/hr Q2H30M PRN IV PATENCY; Start 10/12/16 at 17:48; Stop 10/13/16 at 05:47; Status DC Sodium Chloride (Normal Saline Flush) 10 ml 1X PRN PRN IV AP catheter pack; Start 10/13/16 at 11:00; Stop 10/13/16 at 18:00; Status DC Sodium Chloride (Normal Saline Flush) 10 ml 1X PRN PRN IV MEATMAN catheter pack; Start 10/13/16 at 11:00; Stop 10/13/16 at 18:00; Status DC Info (PHARMACY MONITORING -- do not chart) 1 each PRN DAILY PRN MC SEE COMMENTS ; Start 10/13/16 at 11:00 Info (PHARMACY MONITORING -- do not chart) 1 each PRN DAILY PRN MC SEE COMMENTS ; Start 10/13/16 at 11:00; Stop 10/13/16 at 11:05; Status DC Lidocaine/Sodium Bicarbonate 20 ml 20 ml 1X ONCE IJ Last administered on 16:23; Start 10/13/16 at 13:15; Stop 10/13/16 at 13:16; Status DC Levofloxacin/ Dextrose (LEVAQUIN 250mg PREMIX) 50 ml @ 100 mls/hr 1X ONCE IV Last administered on 10/13/16 16:25; Start 10/13/16 at 13:30; Stop 10/13/16 at 13: 59; Status DC Midazolam HCl (Versed) 2 mg STK-MED ONCE .ROUTE ; Start 10/13/16 at 14:03; Stop 10/13/16 at 14:04; Status DC Fentanyl Citrate (Fentanyl 2ml Vial) 100 mcg STK-MED ONCE .ROUTE ; Start at 14:03; Stop 10/13/16 at 14:04; Status DC Gelatin (Gelfoam Size 12-7mm) 1 each STK-MED ONCE .ROUTE ; Start 10/13/16 at 14: 44; Stop 10/13/16 at 14:45; Status DC Midazolam HCl (Versed) 2 mg 1X ONCE IV Last administered on 10/13/16 16:25; Start 10/13/16 at 15:00; Stop 10/13/16 at 15:01; Status DC Fentanyl Citrate (Fentanyl 2ml Vial) 100 mcg 1X ONCE IV Last administered on 16:26; Start 10/13/16 at 15:00; Stop 10/13/16 at 15:01; Status DC Fentanyl Citrate (Fentanyl 2ml Vial) 50 mcg PRN Q2HR PRN IV SEVERE PAIN Last administered on 10/14/16 20:58; Start 10/14/16 at 01:30 Levofloxacin (Levaquin) 250 mg DAILY06 PO Last administered on 10/20/16 06:34 ; Start 10/16/16 at 06:00 Acetaminophen/ Hydrocodone Bitart 1 tab 1 tab PRN Q4HRS PRN PO PAIN Last administered on 10/18/16 21:25; Start 10/15/16 at 17:45 Magnesium Sulfate/ Dextrose 50 ml @ 25 mls/hr PRN DAILY PRN IV for Mag < 1.7 on am labs Last administered on 10/17/16 10:26; Start 10/16/16 at 14:45 Potassium Chloride 50 ml @ 50 mls/hr PRN Q6HRS PRN IV For K < 3.7; Start at 14:45 Potassium Chloride (KCl Premix 20meq) 50 ml @ 50 mls/hr PRN Q2HR PRN IV total of 40mEq for K < 3.5; Start 10/16/16 at 14:45 Calcitonin Bennett 400 unit 400 unit BID SQ Last administered on 10/19/16 13:50 ; Start 10/16/16 at 21:00; Stop 10/19/16 at 09:01; Status DC Potassium Chloride 40 meq/ Sodium Chloride 1,020 ml @ 100 mls/hr [id number] IV Last administered on 10/17/16 22:37; Start 10/17/16 at 09:15; Stop 10/18/16 at 05: 38; Status DC Sodium Chloride (Iv Sodium Chloride 0.9% 1000ml Bag) 1,000 ml @ 100 mls/hr Q10H IV Last administered on 10/19/16 21:16; Start 10/18/16 at 06:00 Allopurinol (Zyloprim) 100 mg DAILY PO Last administered on 10/20/16 09:10; Start 10/17/16 at 10:30 Lidocaine/Sodium Bicarbonate (Buffered Lidocaine 1%) 20 ml 1X ONCE IJ Last administered on 10/18/16 11:54; Start 10/18/16 at 10:30; Stop 10/18/16 at 10:31; Status DC Midazolam HCl (Versed) 5 mg STK-MED ONCE .ROUTE ; Start 10/18/16 at 10:26; Stop 10/18/16 at 10:27; Status DC Fentanyl Citrate (Fentanyl 5ml Vial) 250 mcg STK-MED ONCE .ROUTE ; Start at 10:26; Stop 10/18/16 at 10:27; Status DC Midazolam HCl (Versed) 5 mg 1X ONCE IV Last administered on 10/18/16 11:55; Start 10/18/16 at 10:30; Stop 10/18/16 at 10:35; Status DC Fentanyl Citrate (Fentanyl 5ml Vial) 250 mcg 1X ONCE IV Last administered on 11:55; Start 10/18/16 at 10:30; Stop 10/18/16 at 10:35; Status DC Heparin Sodium (Porcine) (Hep Lock Adult) 500 unit STK-MED ONCE IV ; Start at 11:02; Stop 10/18/16 at 11:03; Status DC Lidocaine/ Epinephrine 20 ml 20 ml STK-MED ONCE .ROUTE ; Start 10/18/16 at 11:02 ; Stop 10/18/16 at 11:03; Status DC Heparin Sodium/ Sodium Chloride 500 ml @ As Directed STK-MED ONCE .ROUTE ; Start 10/18/16 at 11:02; Stop 10/18/16 at 11:03; Status DC Vancomycin HCl 250 ml @ As Directed STK-MED ONCE .ROUTE ; Start 10/18/16 at 11: 02; Stop 10/18/16 at 11:03; Status DC Cefazolin Sodium (Ancef 1gm Ivpb For Omni) 50 ml @ As Directed STK-MED ONCE IV ; Start 10/18/16 at 11:18; Stop 10/18/16 at 11:19; Status DC Heparin Sodium/ Sodium Chloride 1000 unit 1,000 unit 1X ONCE IART Last administered on 10/18/16 11:53; Start 10/18/16 at 11:30; Stop 10/18/16 at 11:35; Status DC Cefazolin Sodium 50 ml @ 100 mls/hr 1X ONCE IV Last administered on 10/18/16 11:59; Start 10/18/16 at 11:30; Stop 10/18/16 at 11:59; Status DC Vancomycin HCl 250 ml @ 250 mls/hr 1X ONCE IRR Last administered on 10/18/16 11:54; Start 10/18/16 at 11:30; Stop 10/18/16 at 12:29; Status DC Heparin Sodium (Porcine) (Hep Lock Adult) 500 unit 1X ONCE IV Last administered on 10/18/16 11:59; Start 10/18/16 at 11:30; Stop 10/18/16 at 11:35; Status DC Lidocaine/ Epinephrine 20 ml 20 ml 1X ONCE IJ Last administered on 10/18/16 11 :56; Start 10/18/16 at 11:30; Stop 10/18/16 at 11:35; Status DC Rituximab 775 mg/ Sodium Chloride 852.5 ml @ 213.125 mls/hr 1X ONCE IV Last administered on 10/19/16 12:00; Start 10/19/16 at 11:30; Stop 10/19/16 at 15:29; Status DC Cyclophosphamide 1500 mg/Sodium Chloride 250 ml @ 500 mls/hr ONCE ONCE IV Last administered on 10/19/16 10:13; Start 10/19/16 at 09:00; Stop 10/19/16 at 09: 29; Status DC Doxorubicin HCl 100 mg/ Miscellaneous 50 ml @ 600 mls/hr ONCE ONCE IV Last administered on 10/19/16 11:11; Start 10/19/16 at 09:00; Stop 10/19/16 at 09:04; Status DC Vincristine Sulfate/Sodium Chloride (Oncovin/Iv Sodium Chloride 0.9% 50ml) 50 ml @ 275 mls/hr ONCE ONCE IV Last administered on 10/19/16 11:14; Start at 09:00; Stop 10/19/16 at 09:10; Status DC Tbo-Filgrastim (Granix) 480 mcg QHS SQ ; Start 10/20/16 at 21:00; Stop 10/29/16 at 23:00 Acetaminophen (Tylenol) 650 mg ONCE ONCE PO Last administered on 10/19/16 11: 16; Start 10/19/16 at 11:30; Stop 10/19/16 at 11:31; Status DC Diphenhydramine HCl 50 mg 50 mg ONCE ONCE PO Last administered on 10/19/16 11: 16; Start 10/19/16 at 11:00; Stop 10/19/16 at 11:01; Status DC Ondansetron HCl/ Sodium Chloride (Zofran/Iv Sodium Chloride 0.9% 50ml) 56 ml @ 112 mls/hr ONCE ONCE IV Last administered on 10/19/16 09:06; Start 10/19/16 at 08:30; Stop 10/19/16 at 08:59; Status DC Ondansetron HCl (Zofran) 4 mg PRN Q4HRS PRN IV NAUSEA/VOMITING; Start 10/18/16 at 14:45 Prednisone (Prednisone) 100 mg DAILY PO Last administered on 10/20/16 09:10; Start 10/19/16 at 09:00; Stop 10/23/16 at 09:01 Dexamethasone 20 mg 20 mg 1X ONCE PO Last administered on 10/19/16 09:07; Start 10/19/16 at 08:30; Stop 10/19/16 at 08:31; Status DC Magnesium Sulfate/ Dextrose (Magnesium Sulfate PREMIX 2GM) 50 ml @ 25 mls/hr 1X ONCE IV Last administered on 10/19/16 06:05; Start 10/19/16 at 05:45; Stop 10/19/16 at 07:44; Status DC Active Scripts Active Reported Fenofibrate (Fenofibrate Nanocrystallized) 145 Mg Tablet 1 Tab PO DAILYWLUN Potassium Chloride 20 Meq Tablet.er 20 Meq PO DAILYWSUP Calcium (Calcium Carbonate) 600 Mg Tablet 600 Mg PO Vytorin 10-80 Mg Tablet (Ezetimibe/Simvastatin) 1 Each Tablet 1 Each PO HS Multi-Vitamin Daily (Multivitamin) 1 Each Tablet 1 Each PO DAILY Vitamin D3 (Cholecalciferol (Vitamin D3)) 5,000 Unit Tablet 1 Tab PO DAILY Pradaxa (Dabigatran Etexilate Mesylate) 150 Mg Capsule 1 Cap PO BID Zoloft (Sertraline Hcl) 50 Mg Tablet 1 Tab PO HS Tamsulosin Hcl 0.4 Mg Cap.er.24h 1 Cap PO HS Losartan Potassium 100 Mg Tablet 100 Mg PO HS Klor-Con M20 (Potassium Chloride) 20 Meq Tab.er.prt 1 Tab PO DAILY Spironolactone 25 Mg Tablet 1 Tab PO DAILY Aspirin 81 Mg Tab.chew 1 Tab PO DAILY Carvedilol 25 Mg Tablet 1 Tab PO BID Vitals/I & O Vital Sign - Last 24 Hours 10/19/16 10/19/16 10/19/16 10/19/16 11:00 12:25 16:00 17:23 Temp 97.5 97.5 97.5 97.5 97.5 97.5 Pulse 83 88 88 88 Resp 16 20 B/P 139/93 151/94 151/94 151/94 Pulse Ox 96 96 O2 Delivery Room Air Room Air Room Air O2 Flow Rate 2.0 10/19/16 10/19/16 10/19/16 10/19/16 19:00 19:30 21:16 23:00 Temp 97.4 97.4 97.4 97.4 Pulse 79 79 76 Resp 18 18 B/P 128/80 128/80 124/80 Pulse Ox 94 92 O2 Delivery Room Air Room Air Room Air 10/20/16 10/20/16 10/20/16 03:00 07:00 09:11 Temp 98.1 96.4 98.1 96.4 Pulse 90 75 75 Resp 18 18 B/P 130/75 109/70 109/70 Pulse Ox 92 94 O2 Delivery Room Air Room Air Intake and Output 10/19/16 10/19/16 10/20/16 15:00 23:00 07:00 Intake Total 240 ml 1100 ml 731 ml Output Total 2700 ml 685 ml Balance 240 ml -1600 ml 46 ml AYALA LYMAN MD Oct 20, 2016 10:17
[2016-10-20 11:00] VITALS: BP 130/83
[2016-10-20 15:00] VITALS: BP 129/76
--- NOTE | 2016-10-20 15:20 | PDOC ---
SUBJECTIVE ROS YURI and ^ Krishna Doing OK after Chemo yesterday CVS: no Orthopnea, no CP RESP: no SOB, no ZEPEDA GI: no Nausea, no Vomiting : no Dysuria, n Urgency OBJECTIVE Vital Signs Vital Signs Date Time Temp Pulse Resp B/P Pulse Ox O2 Delivery O2 Flow Rate FiO2 10/20/16 11:00 95.2 86 18 130/83 96 Room Air 95.2 10/19/16 16:00 2.0 I & 0 Intake and Output 10/20/16 07:00 Intake Total 2071 ml Output Total 3385 ml Balance -1314 ml Intake Oral 960 ml IV Total 1111 ml Output Urine Total 2335 ml Drainage Total 1050 ml # Voids 3 PHYSICAL EXAM Physical Exam General Appearance: Awake Alert Oriented x 3 In no Distress Eyes: VIsion Unchanged Conjunctiva Normal EN: No EN Drainage Mucous Memb. moist Neck: no JVD no JVP Supple no Thyromegaly CVS: S1 S2 soft Murmur No Gallop No Rub no Edema Resp: no Rales no Rhonchi no Acc. Muscle use GI: BS +ve NO Bruit Non Tender Non Distended : no CVA tenderness; (PCNs in place) no Suprapubic Tenderness ASSESSMENT/PLAN ARF: Creat better after PCNs. watch Trend with PCNs in place; no labs today. PCNs with good UO; D/c HD Cath ^Krishna - suspect due to Underlying Lymphoma; restarted Miacalcin; Unable to use Pamidronate due to Renal Insuff. Ct IVF for now. Creat is a little better today. Remains asymptomatic from ^Krishna standpoint. Low K - Replace per sliding scale - added to IVF - watch trend once CHemo starts (tu Lysis) Hypoalbuminemia - suspect due to Poor PO intake Anemia: (? part of Lymphoma) defer to Dr Ross/ Henry who is now on the case HTN: Current BP meds reviewed. See orders for changes. Lymphoma - Chemo per Dr Ross COMMENT/RELEVANT DATA Meds Current Medications Medications (Trade) Dose Ordered Sig/Selena Start Time Stop Time Status Last Admin Dose Admin Acetaminophen (Tylenol) 650 mg ONCE ONCE 10/19/16 11:30 10/19/16 11:31 DC 10/19/16 11:16 650 MG Acetaminophen/ Hydrocodone Bitart 1 tab 1 tab PRN Q4HRS PRN 10/15/16 17:45 10/18/16 21:25 1 TAB Allopurinol (Zyloprim) 100 mg DAILY 10/17/16 10:30 10/20/16 09:10 100 MG Apixaban (Eliquis) 2.5 mg BID 10/12/16 21:00 10/12/16 21:00 DC Aspirin (Children'S Aspirin) 81 mg DAILY08 10/10/16 14:00 10/12/16 19:37 DC 10/12/16 08:47 81 MG Calcitonin Story (Miacalcin) 400 unit BID 10/10/16 21:00 10/12/16 23:52 DC 10/12/16 08:51 400 UNIT Calcitonin Story 400 unit 400 unit BID 10/16/16 21:00 10/19/16 09:01 DC 10/19/16 13:50 400 UNIT Carvedilol (Coreg) 25 mg BIDWMEALS 10/10/16 17:00 10/20/16 09:11 25 MG Cefazolin Sodium 50 ml @ 100 mls/hr 1X ONCE 10/18/16 11:30 10/18/16 11:59 DC 10/18/16 11:59 100 MLS/HR Cefazolin Sodium (Ancef 1gm Ivpb For Omni) 50 ml @ As Directed STK-MED ONCE 10/18/16 11:18 10/18/16 11:19 DC Cyclophosphamide 1500 mg/Sodium Chloride 250 ml @ 500 mls/hr ONCE ONCE 10/19/16 09:00 10/19/16 09:29 DC 10/19/16 10:13 500 MLS/HR Dabigatran (Pradaxa) 75 mg BID 10/11/16 09:00 10/12/16 14:56 DC 10/11/16 10:03 75 MG Dexamethasone Sodium Phosphate (Decadron) 20 mg STK-MED ONCE 10/12/16 12:25 10/12/16 12:26 DC Dexamethasone 20 mg 20 mg 1X ONCE 10/19/16 08:30 10/19/16 08:31 DC 10/19/16 09:07 20 MG Diphenhydramine HCl (Benadryl) 25 mg 1X PRN PRN 10/12/16 18:00 10/13/16 13:06 DC Diphenhydramine HCl 50 mg 50 mg ONCE ONCE 10/19/16 11:00 10/19/16 11:01 DC 10/19/16 11:16 50 MG Doxorubicin HCl 100 mg/ Miscellaneous 50 ml @ 600 mls/hr ONCE ONCE 10/19/16 09:00 10/19/16 09:04 DC 10/19/16 11:11 600 MLS/HR EZETIMIBE (Zetia) 10 mg HS 10/10/16 21:00 10/19/16 21:17 10 MG Fenofibrate (Lofibra) 134 mg DAILY 10/10/16 14:00 10/20/16 09:10 134 MG Fentanyl Citrate (Fentanyl 2ml Vial) 50 mcg PRN Q2HR PRN 10/14/16 01:30 10/14/16 20:58 50 MCG Fentanyl Citrate (Fentanyl 5ml Vial) 250 mcg 1X ONCE 10/18/16 10:30 10/18/16 10:35 DC 10/18/16 11:55 250 MCG Gelatin (Gelfoam Size 12-7mm) 1 each STK-MED ONCE 10/13/16 14:44 10/13/16 14:45 DC Heparin Sodium (Porcine) (Hep Lock Adult) 500 unit 1X ONCE 10/18/16 11:30 10/18/16 11:35 DC 10/18/16 11:59 500 UNIT Heparin Sodium (Porcine) 500 unit 500 unit STK-MED ONCE 10/18/16 11:02 10/18/16 11:03 DC Heparin Sodium/ Sodium Chloride 1000 unit 1,000 unit 1X ONCE 10/18/16 11:30 10/18/16 11:35 DC 10/18/16 11:53 1,000 UNIT Hydromorphone HCl (Dilaudid) 0.5 mg PRN Q10MIN PRN 10/12/16 09:30 10/13/16 09:29 DC Idarucizumab (Praxbind) 5 gm 1X ONCE 10/12/16 16:30 10/12/16 16:31 DC 10/12/16 16:48 5 GM Info (Anti-Coagulation Monitoring By Pharmacy) 1 each PRN DAILY PRN 10/10/16 14:45 10/13/16 09:44 DC 10/11/16 08:28 1 EACH Info (PHARMACY MONITORING -- do not chart) 1 each PRN DAILY PRN 10/13/16 11:00 10/13/16 11:05 DC Iohexol 50 ml 50 ml STK-MED ONCE 10/12/16 11:38 10/12/16 11:39 DC Lactated Ringer's (Iv Lactated Ringers) 1,000 ml @ 0 mls/hr Q0M 10/12/16 09:29 10/12/16 21:28 DC 10/12/16 12:43 100 MLS/HR Levofloxacin (Levaquin) 250 mg DAILY06 10/16/16 06:00 10/20/16 06:34 250 MG Levofloxacin/ Dextrose (LEVAQUIN 250mg PREMIX) 50 ml @ 100 mls/hr 1X ONCE 10/13/16 13:30 10/13/16 13:59 DC 10/13/16 16:25 100 MLS/HR Lidocaine HCl 20 ml STK-MED ONCE 10/12/16 15:40 10/12/16 15:41 DC Lidocaine/ Epinephrine (Xylocaine 1%-Epi 1:100,000) 2 ml 1X ONCE 10/12/16 16:30 10/12/16 16:31 DC 10/12/16 16:28 2 ML Lidocaine/ Epinephrine 20 ml 20 ml 1X ONCE 10/18/16 11:30 10/18/16 11:35 DC 10/18/16 11:56 12 ML Lidocaine/Sodium Bicarbonate (Buffered Lidocaine 1%) 20 ml 1X ONCE 10/18/16 10:30 10/18/16 10:31 DC 10/18/16 11:54 6 ML Lidocaine/Sodium Bicarbonate 20 ml 20 ml 1X ONCE 10/13/16 13:15 10/13/16 13:16 DC 10/13/16 16:23 28 ML Losartan Potassium (Cozaar) 100 mg QHS 10/10/16 21:00 10/19/16 21:16 100 MG Magnesium Sulfate/ Dextrose (Magnesium Sulfate PREMIX 2GM) 50 ml @ 25 mls/hr 1X ONCE 10/19/16 05:45 10/19/16 07:44 DC 10/19/16 06:05 25 MLS/HR Midazolam HCl (Versed) 5 mg 1X ONCE 10/18/16 10:30 10/18/16 10:35 DC 10/18/16 11:55 2 MG Morphine Sulfate 1 mg 1 mg PRN Q10MIN PRN 10/12/16 09:30 10/13/16 09:29 DC Multivitamins/ Calcium (Thera M Plus) 1 tab DAILY 10/10/16 14:00 10/20/16 09:10 1 TAB Non-Formulary Medication 20 meq DAILYWSUP 10/10/16 17:00 UNV Ondansetron HCl (Zofran) 4 mg PRN Q4HRS PRN 10/18/16 14:45 Ondansetron HCl/ Sodium Chloride (Zofran/Iv Sodium Chloride 0.9% 50ml) 56 ml @ 112 mls/hr ONCE ONCE 10/19/16 08:30 10/19/16 08:59 DC 10/19/16 09:06 112 MLS/HR Phenylephrine HCl 1 mg STK-MED ONCE 10/12/16 13:59 10/12/16 14:00 DC Potassium Chloride 40 meq/ Sodium Chloride 1,020 ml @ 100 mls/hr [id number] 10/17/16 09:15 10/18/16 05:38 DC 10/17/16 22:37 100 MLS/HR Potassium Chloride (KCl Premix 20meq) 50 ml @ 50 mls/hr PRN Q2HR PRN 10/16/16 14:45 Potassium Chloride (Klor-Con) 20 meq DAILYWSUP 10/10/16 17:00 10/10/16 17:00 DC Prednisone (Prednisone) 100 mg DAILY 10/19/16 09:00 10/23/16 09:01 10/20/16 09:10 100 MG Prochlorperazine Edisylate (Compazine) 5 mg PACU PRN PRN 10/12/16 09:30 10/13/16 09:29 DC Propofol (Diprivan) 20 ml @ As Directed STK-MED ONCE 10/12/16 12:25 10/12/16 12:26 DC Rituximab 775 mg/ Sodium Chloride 852.5 ml @ 213.125 mls/hr 1X ONCE 10/19/16 11:30 10/19/16 15:29 DC 10/19/16 12:00 213.125 MLS/HR Sertraline HCl (Zoloft) 50 mg HS 10/10/16 21:00 10/19/16 21:16 50 MG Simvastatin (Zocor) 80 mg QHS 10/10/16 21:00 10/19/16 21:16 80 MG Sodium Polystyrene Sulfonate (Kayexalate) 45 gm 1X ONCE 10/10/16 13:30 10/10/16 13:44 DC 10/10/16 15:07 45 GM Sodium Chloride (Iv Sodium Chloride 0.9% 1000ml Bag) 1,000 ml @ 100 mls/hr Q10H 10/18/16 06:00 10/19/16 21:16 100 MLS/HR Sodium Chloride (Normal Saline Flush) 10 ml 1X PRN PRN 10/13/16 11:00 10/13/16 18:00 DC Spironolactone (Aldactone) 25 mg DAILY 10/10/16 14:00 10/10/16 14:17 DC Tamsulosin HCl (Flomax) 0.4 mg HS 10/10/16 21:00 10/19/16 21:16 0.4 MG Tbo-Filgrastim (Granix) 480 mcg QHS 10/20/16 21:00 10/29/16 23:00 Vancomycin HCl 250 ml @ 250 mls/hr 1X ONCE 10/18/16 11:30 10/18/16 12:29 DC 10/18/16 11:54 250 MLS/HR Vincristine Sulfate/Sodium Chloride (Oncovin/Iv Sodium Chloride 0.9% 50ml) 50 ml @ 275 mls/hr ONCE ONCE 10/19/16 09:00 10/19/16 09:10 DC 10/19/16 11:14 275 MLS/HR Vitamin D (Vitamin D3) 5,000 unit DAILY 10/10/16 14:00 10/20/16 09:10 5,000 UNIT Lab Laboratory Tests Test 10/20/16 06:40 Sodium Level 143mmol/L (136-145) Potassium Level 3.4mmol/L (3.5-5.1) Chloride Level 108mmol/L (98-107) Carbon Dioxide Level 27mmol/L (21-32) Anion Gap 8 (6-14) Blood Urea Nitrogen 34mg/dL (8-26) Creatinine 1.9mg/dL (0.7-1.3) Estimated GFR (Cockcroft-Gault) 34.0 Glucose Level 134mg/dL (70-99) Calcium Level 11.0mg/dL (8.5-10.1) Phosphorus Level 3.6mg/dL (2.6-4.7) Magnesium Level 1.9mg/dL (1.8-2.4) Albumin 2.6g/dL (3.4-5.0) DIAZ GUNN MD Oct 20, 2016 15:20
[2016-10-20] MEDS: POTASSIUM CHLORIDE 20MEQ 50 ML IV SCH ×2 (16:37→18:15)
[2016-10-20 19:00] VITALS: BP 127/73
[2016-10-20] MEDS: EZETIMIBE 10 MG TABLET PO SCH (21:52)
[2016-10-20] MEDS: TAMSULOSIN 0.4 MG CAP.ER.24H. PO SCH (21:53)
[2016-10-20] MEDS: SIMVASTATIN 40 MG TABLET. PO SCH (21:53)
[2016-10-20] MEDS: LOSARTAN POTASSIUM 50 MG TABLET. PO SCH (21:53)
[2016-10-20] MEDS: SERTRALINE 50 MG TABLET. PO SCH (21:53)
[2016-10-20] MEDS: TBO-FILGRASTIM 480 MCG/0.8 ML SYRINGE. SQ SCH (21:54)
[2016-10-20 23:25] VITALS: BP 113/65
[2016-10-21 03:08] VITALS: BP 135/88
[2016-10-21] MEDS: IV NORMAL SALINE 1000ML BAG 1,000 ML IV SCH ×2 (04:14→14:00)
[2016-10-21] MEDS: LEVOFLOXACIN 250 MG TABLET. PO SCH (05:57)
[2016-10-21 06:45] LABS: ALBUMIN 2.3 g/dL (3.4-5.0); CALCIUM 10.5 mg/dL (8.5-10.1); CREATININE 1.8 mg/dL (0.7-1.3); GFR 36.2; PHOSPHORUS 2.8 mg/dL (2.6-4.7); POTASSIUM 3.7 mmol/L (3.5-5.1)
[2016-10-21 07:00] VITALS: BP 154/87
[2016-10-21] MEDS: PREDNISONE 20 MG TABLET PO SCH (10:00)
[2016-10-21] MEDS: ALLOPURINOL 100 MG TABLET. PO SCH (10:00)
[2016-10-21] MEDS: FENOFIBRATE,MICRONIZED 134 MG CAPSULE PO SCH (10:00)
[2016-10-21] MEDS: CARVEDILOL 12.5 MG TABLET PO SCH ×2 (10:00→18:03)
[2016-10-21] MEDS: MULTIVITAMIN with MINERAL TABLET. PO SCH (10:00)
[2016-10-21] MEDS: CHOLECALCIFEROL (VITAMIN D3) 5,000 UNIT CAPSULE PO SCH (10:00)
[2016-10-21 10:29] LABS: HEMATOCRIT 26.3 % (39.0-53.0); HEMOGLOBIN 8.8 g/dL (13.0-17.5); RED BLOOD COUNT 2.91 x10^6/uL (4.30-5.70); RED CELL DISTRIBUTION WIDTH 14.9 % (11.5-14.5)
[2016-10-21 10:30] LABS: WHITE BLOOD COUNT 23.6 x10^3/uL (4.0-11.0)
[2016-10-21 11:00] VITALS: BP 122/70
--- NOTE | 2016-10-21 12:47 | PDOC ---
SUBJECTIVE Subjective pleasant , grandson is visiting, had chemo yesterday, no nausea but decrease appetite OBJECTIVE Vital Signs Vital Signs Date Time Temp Pulse Resp B/P Pulse Ox O2 Delivery O2 Flow Rate FiO2 10/21/16 11:00 98.1 76 20 122/70 94 Room Air 98.1 10/21/16 10:00 89 157/87 10/21/16 07:00 98.2 89 20 154/87 93 Room Air 98.2 10/21/16 03:08 98.5 83 20 135/88 94 Room Air 98.5 10/20/16 23:25 98.8 88 20 113/65 94 Room Air 98.8 10/20/16 21:53 86 127/73 10/20/16 20:20 Room Air 10/20/16 19:00 98.7 86 20 127/73 95 Room Air 98.7 10/20/16 16:37 84 129/76 10/20/16 15:00 96.3 84 16 129/76 94 Room Air 96.3 I & O Intake and Output 10/21/16 07:00 Intake Total 1864 ml Output Total 850 ml Balance 1014 ml Intake Oral 240 ml IV Total 1624 ml Drainage Total 850 ml # Voids 2 PHYSICAL EXAM Physical Exam no change in exam ASSESSMENT/PLAN Assessment/Plan 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 Pt tolerated well. 2- leukocytosis due to granix 3. Acute renal failure -s/p nephrostomy and stent, kidney function better 4. Hypercalcemia -secondary to malignancy given Miacalcin continue plans as oulined by oncology , high WBC today due granix Problems: COMMENT Lab Laboratory Tests Test 10/21/16 05:50 10/21/16 10:00 Sodium Level 142mmol/L (136-145) Potassium Level 3.7mmol/L (3.5-5.1) Chloride Level 109mmol/L (98-107) Carbon Dioxide Level 27mmol/L (21-32) Anion Gap 6 (6-14) Blood Urea Nitrogen 43mg/dL (8-26) Creatinine 1.8mg/dL (0.7-1.3) Estimated GFR (Cockcroft-Gault) 36.2 Glucose Level 98mg/dL (70-99) Calcium Level 10.5mg/dL (8.5-10.1) Phosphorus Level 2.8mg/dL (2.6-4.7) Magnesium Level 1.7mg/dL (1.8-2.4) Albumin 2.3g/dL (3.4-5.0) White Blood Count 23.6x10^3/uL (4.0-11.0) Red Blood Count 2.91x10^6/uL (4.30-5.70) Hemoglobin 8.8g/dL (13.0-17.5) Hematocrit 26.3% (39.0-53.0) Mean Corpuscular Volume 90fL (79-100) Mean Corpuscular Hemoglobin 30pg (25-35) Mean Corpuscular Hemoglobin Concent 34g/dL (31-37) Red Cell Distribution Width 14.9% (11.5-14.5) Platelet Count 171x10^3/uL (140-400) JOSE LUIS HEATON MD Oct 21, 2016 12:47
--- NOTE | 2016-10-21 14:11 | PDOC ---
PROGRESS NOTES Subjective Subjective SEEN IN FOLLOW UP OF HYPERCA++ AND ARF Objective Objective Vital Signs Date Time Temp Pulse Resp B/P Pulse Ox O2 Delivery O2 Flow Rate FiO2 10/21/16 11:00 98.1 76 20 122/70 94 Room Air 98.1 10/19/16 16:00 2.0 Intake and Output 10/21/16 07:00 Intake Total 1864 ml Output Total 850 ml Balance 1014 ml Intake Oral 240 ml IV Total 1624 ml Drainage Total 850 ml # Voids 2 Physical Exam Abdomen: Normal bowel sounds, Soft, No tenderness, No hepatosplenomegaly, No masses Heart: Regular rate, Normal S1, Normal S2, No murmurs, Gallops Extremities: No clubbing, No cyanosis, No edema, Normal pulses, No tenderness/ swelling General: Alert, Oriented X3, Cooperative, No acute distress Lungs: Clear to auscultation, Normal air movement Psych/Mental Status: Mental status NL, Mood NL Diagnosis RENAL FAILURE: Acute, Other (DEHYDRATION DUE TO HYPERCA++) Assessment Assessment Problems Medical Problems: (1) Acute renal failure (ARF) Status: Acute Plan Plan of Care HE IS BETTER, CONT IVF AND FOLLOW Comment Review of Relevant I have reviewed the following items juan (where applicable) has been applied. Labs Laboratory Tests Test 10/20/16 06:40 10/21/16 05:50 10/21/16 10:00 Sodium Level 143mmol/L (136-145) 142mmol/L (136-145) Potassium Level 3.4mmol/L (3.5-5.1) 3.7mmol/L (3.5-5.1) Chloride Level 108mmol/L (98-107) 109mmol/L (98-107) Carbon Dioxide Level 27mmol/L (21-32) 27mmol/L (21-32) Anion Gap 8 (6-14) 6 (6-14) Blood Urea Nitrogen 34mg/dL (8-26) 43mg/dL (8-26) Creatinine 1.9mg/dL (0.7-1.3) 1.8mg/dL (0.7-1.3) Estimated GFR (Cockcroft-Gault) 34.0 36.2 Glucose Level 134mg/dL (70-99) 98mg/dL (70-99) Calcium Level 11.0mg/dL (8.5-10.1) 10.5mg/dL (8.5-10.1) Phosphorus Level 3.6mg/dL (2.6-4.7) 2.8mg/dL (2.6-4.7) Magnesium Level 1.9mg/dL (1.8-2.4) 1.7mg/dL (1.8-2.4) Albumin 2.6g/dL (3.4-5.0) 2.3g/dL (3.4-5.0) White Blood Count 23.6x10^3/uL (4.0-11.0) Red Blood Count 2.91x10^6/uL (4.30-5.70) Hemoglobin 8.8g/dL (13.0-17.5) Hematocrit 26.3% (39.0-53.0) Mean Corpuscular Volume 90fL (79-100) Mean Corpuscular Hemoglobin 30pg (25-35) Mean Corpuscular Hemoglobin Concent 34g/dL (31-37) Red Cell Distribution Width 14.9% (11.5-14.5) Platelet Count 171x10^3/uL (140-400) Laboratory Tests Test 10/21/16 05:50 10/21/16 10:00 Sodium Level 142mmol/L (136-145) Potassium Level 3.7mmol/L (3.5-5.1) Chloride Level 109mmol/L (98-107) Carbon Dioxide Level 27mmol/L (21-32) Anion Gap 6 (6-14) Blood Urea Nitrogen 43mg/dL (8-26) Creatinine 1.8mg/dL (0.7-1.3) Estimated GFR (Cockcroft-Gault) 36.2 Glucose Level 98mg/dL (70-99) Calcium Level 10.5mg/dL (8.5-10.1) Phosphorus Level 2.8mg/dL (2.6-4.7) Magnesium Level 1.7mg/dL (1.8-2.4) Albumin 2.3g/dL (3.4-5.0) White Blood Count 23.6x10^3/uL (4.0-11.0) Red Blood Count 2.91x10^6/uL (4.30-5.70) Hemoglobin 8.8g/dL (13.0-17.5) Hematocrit 26.3% (39.0-53.0) Mean Corpuscular Volume 90fL (79-100) Mean Corpuscular Hemoglobin 30pg (25-35) Mean Corpuscular Hemoglobin Concent 34g/dL (31-37) Red Cell Distribution Width 14.9% (11.5-14.5) Platelet Count 171x10^3/uL (140-400) Medications Current Medications Sodium Chloride 1,000 ml @ 100 mls/hr Q10H IV Last administered on 10/11/16 08 :49; Start 10/10/16 at 11:00; Stop 10/11/16 at 21:27; Status DC Magnesium Sulfate/ Dextrose (Magnesium Sulfate PREMIX 2GM) 50 ml @ 25 mls/hr PRN DAILY PRN IV for Mag < 1.7 on am labs Last administered on 10/14/16 13:04; Start 10/10/16 at 13:30; Stop 10/16/16 at 16:08; Status DC Sodium Polystyrene Sulfonate (Kayexalate) 45 gm 1X ONCE PO Last administered on 10/10/16 15:07; Start 10/10/16 at 13:30; Stop 10/10/16 at 13:44; Status DC Aspirin (Children'S Aspirin) 81 mg DAILY08 PO Last administered on 10/12/16 08: 47; Start 10/10/16 at 14:00; Stop 10/12/16 at 19:37; Status DC Dabigatran (Pradaxa) 150 mg BID PO Last administered on 10/10/16 21:48; Start 10/10/16 at 21:00; Stop 10/11/16 at 08:25; Status DC Potassium Chloride (Klor-Con) 20 meq DAILYWSUP PO ; Start 10/10/16 at 17:00; Stop 10/10/16 at 17:00; Status DC Sertraline HCl (Zoloft) 50 mg HS PO Last administered on 10/20/16 21:53; Start 10/10/16 at 21:00 Spironolactone (Aldactone) 25 mg DAILY PO ; Start 10/10/16 at 14:00; Stop at 14:17; Status DC Tamsulosin HCl (Flomax) 0.4 mg HS PO Last administered on 10/20/16 21:53; Start 10/10/16 at 21:00 Carvedilol (Coreg) 25 mg BIDWMEALS PO Last administered on 10/21/16 10:00; Start 10/10/16 at 17:00 Vitamin D (Vitamin D3) 5,000 unit DAILY PO Last administered on 10/21/16 10:00 ; Start 10/10/16 at 14:00 EZETIMIBE (Zetia) 10 mg DAILY PO ; Start 10/10/16 at 14:00; Stop 10/10/16 at 21: 00; Status Cancel Fenofibrate (Lofibra) 134 mg DAILY PO Last administered on 10/21/16 10:00; Start 10/10/16 at 14:00 Losartan Potassium (Cozaar) 100 mg QHS PO Last administered on 10/20/16 21:53 ; Start 10/10/16 at 21:00 Multivitamins/ Calcium (Thera M Plus) 1 tab DAILY PO Last administered on 10:00; Start 10/10/16 at 14:00 Non-Formulary Medication 20 meq DAILYWSUP PO ; Start 10/10/16 at 17:00; Status UNV Simvastatin (Zocor) 80 mg QHS PO Last administered on 10/20/16 21:53; Start at 21:00 Calcitonin [place] (Miacalcin) 400 unit BID SQ Last administered on 10/12/16 08: 51; Start 10/10/16 at 21:00; Stop 10/12/16 at 23:52; Status DC Info (Anti-Coagulation Monitoring By Pharmacy) 1 each PRN DAILY PRN MC SEE COMMENTS Last administered on 10/11/16 08:28; Start 10/10/16 at 14:45; Stop 10/13 at 09:44; Status DC Ondansetron HCl (Zofran) 4 mg PRN Q6HRS PRN IV NAUSEA/VOMITING; Start 10/10/16 at 15:30; Status Cancel EZETIMIBE (Zetia) 10 mg HS PO Last administered on 10/20/16 21:52; Start 10/10 at 21:00 Dabigatran (Pradaxa) 75 mg BID PO Last administered on 10/11/16 10:03; Start at 09:00; Stop 10/12/16 at 14:56; Status DC Ondansetron HCl (Zofran) 4 mg PRN Q6HRS PRN IV Nausea; Start 10/12/16 at 09:30; Stop 10/13/16 at 09:29; Status DC Fentanyl Citrate (Fentanyl 2ml Vial) 25 mcg PRN Q5MIN PRN IV MILD PAIN; Start 10/12/16 at 09:30; Stop 10/13/16 at 09:29; Status DC Fentanyl Citrate (Fentanyl 2ml Vial) 50 mcg PRN Q5MIN PRN IV MODERATE PAIN; Start 10/12/16 at 09:30; Stop 10/13/16 at 09:29; Status DC Morphine Sulfate 1 mg 1 mg PRN Q10MIN PRN IV SEVERE PAIN; Start 10/12/16 at 09: 30; Stop 10/13/16 at 09:29; Status DC Lactated Ringer's (Iv Lactated Ringers) 1,000 ml @ 0 mls/hr Q0M IV Last administered on 10/12/16 12:43; Start 10/12/16 at 09:29; Stop 10/12/16 at 21:28; Status DC Lidocaine HCl 2 ml 1X PRN PRN ID IV START; Start 10/12/16 at 09:30; Stop at 09:29; Status DC Hydromorphone HCl (Dilaudid) 0.5 mg PRN Q10MIN PRN IV SEV PAIN,Second choice; Start 10/12/16 at 09:30; Stop 10/13/16 at 09:29; Status DC Prochlorperazine Edisylate 5 mg 5 mg PACU PRN PRN IV NAUSEA; Start 10/12/16 at 09:30; Stop 10/13/16 at 09:29; Status DC Levofloxacin/ Dextrose (LEVAQUIN 250mg PREMIX) 50 ml @ 50 mls/hr Q24H IV Last administered on 10/15/16 08:39; Start 10/12/16 at 10:00; Stop 10/15/16 at 15:52; Status DC Iohexol 50 ml 50 ml STK-MED ONCE .ROUTE ; Start 10/12/16 at 11:38; Stop 10/12/16 at 11:39; Status DC Propofol (Diprivan) 20 ml @ As Directed STK-MED ONCE IV ; Start 10/12/16 at 12:25 ; Stop 10/12/16 at 12:26; Status DC Lidocaine HCl 100 mg STK-MED ONCE .ROUTE ; Start 10/12/16 at 12:25; Stop 10/12/16 at 12:26; Status DC Dexamethasone Sodium Phosphate (Decadron) 20 mg STK-MED ONCE .ROUTE ; Start 10/12 at 12:25; Stop 10/12/16 at 12:26; Status DC Ondansetron HCl (Zofran) 4 mg STK-MED ONCE .ROUTE ; Start 10/12/16 at 12:25; Stop 10/12/16 at 12:26; Status DC Fentanyl Citrate (Fentanyl 2ml Vial) 100 mcg STK-MED ONCE .ROUTE ; Start at 12:25; Stop 10/12/16 at 12:26; Status DC Phenylephrine HCl 1 mg STK-MED ONCE IV ; Start 10/12/16 at 13:59; Stop 10/12/16 at 14:00; Status DC Apixaban (Eliquis) 2.5 mg BID PO ; Start 10/12/16 at 21:00; Stop 10/12/16 at 21:00 ; Status DC Idarucizumab (Praxbind) 5 gm 1X ONCE IV Last administered on 10/12/16t 16:48; Start 10/12/16 at 16:30; Stop 10/12/16 at 16:31; Status DC Heparin Sodium (Porcine) 10,000 unit STK-MED ONCE .ROUTE ; Start 10/12/16 at 15: 40; Stop 10/12/16 at 15:41; Status DC Lidocaine HCl 20 ml 20 ml STK-MED ONCE .ROUTE ; Start 10/12/16 at 15:40; Stop 10/12/16 at 15:41; Status DC Heparin Sodium/ Sodium Chloride 500 ml @ As Directed STK-MED ONCE .ROUTE ; Start 10/12/16 at 15:40; Stop 10/12/16 at 15:41; Status DC Lidocaine/ Epinephrine (Xylocaine 1%-Epi 1:100,000) 20 ml STK-MED ONCE .ROUTE ; Start 10/12/16 at 15:43; Stop 10/12/16 at 15:44; Status DC Heparin Sodium (Porcine) 2,400 unit 1X ONCE INT CAT Last administered on 16:27; Start 10/12/16 at 16:30; Stop 10/12/16 at 16:31; Status DC Heparin Sodium/ Sodium Chloride 6 unit 1X ONCE IV Last administered on 16:27; Start 10/12/16 at 16:30; Stop 10/12/16 at 16:31; Status DC Lidocaine/ Epinephrine 2 ml 2 ml 1X ONCE IJ Last administered on 10/12/16 16: 28; Start 10/12/16 at 16:30; Stop 10/12/16 at 16:31; Status DC Sodium Chloride (Iv Sodium Chloride 0.9% 1000ml Bag) 1,000 ml @ 1,000 mls/hr Q1H PRN IV hypotension; Start 10/12/16 at 17:48; Stop 10/12/16 at 23:47; Status DC Diphenhydramine HCl (Benadryl) 25 mg 1X PRN PRN IV ITCHING; Start 10/12/16 at 18 :00; Stop 10/13/16 at 13:06; Status DC Diphenhydramine HCl (Benadryl) 25 mg 1X PRN PRN IV ITCHING; Start 10/12/16 at 18 :00; Stop 10/13/16 at 13:06; Status DC Sodium Chloride (Normal Saline Flush) 10 ml 1X PRN PRN IV AP catheter pack; Start 10/12/16 at 18:00; Stop 10/13/16 at 13:06; Status DC Sodium Chloride 10 ml 10 ml 1X PRN PRN IV DIRECTOR INFORMATICS catheter pack; Start 10/12/16 at 18 :00; Stop 10/13/16 at 13:06; Status DC Sodium Chloride (Iv Sodium Chloride 0.9% 1000ml Bag) 1,000 ml @ 400 mls/hr Q2H30M PRN IV PATENCY; Start 10/12/16 at 17:48; Stop 10/13/16 at 05:47; Status DC Sodium Chloride (Normal Saline Flush) 10 ml 1X PRN PRN IV AP catheter pack; Start 10/13/16 at 11:00; Stop 10/13/16 at 18:00; Status DC Sodium Chloride (Normal Saline Flush) 10 ml 1X PRN PRN IV DIRECTOR INFORMATICS catheter pack; Start 10/13/16 at 11:00; Stop 10/13/16 at 18:00; Status DC Info (PHARMACY MONITORING -- do not chart) 1 each PRN DAILY PRN MC SEE COMMENTS ; Start 10/13/16 at 11:00 Info (PHARMACY MONITORING -- do not chart) 1 each PRN DAILY PRN MC SEE COMMENTS ; Start 10/13/16 at 11:00; Stop 10/13/16 at 11:05; Status DC Lidocaine/Sodium Bicarbonate 20 ml 20 ml 1X ONCE IJ Last administered on 16:23; Start 10/13/16 at 13:15; Stop 10/13/16 at 13:16; Status DC Levofloxacin/ Dextrose (LEVAQUIN 250mg PREMIX) 50 ml @ 100 mls/hr 1X ONCE IV Last administered on 10/13/16 16:25; Start 10/13/16 at 13:30; Stop 10/13/16 at 13: 59; Status DC Midazolam HCl (Versed) 2 mg STK-MED ONCE .ROUTE ; Start 10/13/16 at 14:03; Stop 10/13/16 at 14:04; Status DC Fentanyl Citrate (Fentanyl 2ml Vial) 100 mcg STK-MED ONCE .ROUTE ; Start at 14:03; Stop 10/13/16 at 14:04; Status DC Gelatin (Gelfoam Size 12-7mm) 1 each STK-MED ONCE .ROUTE ; Start 10/13/16 at 14: 44; Stop 10/13/16 at 14:45; Status DC Midazolam HCl (Versed) 2 mg 1X ONCE IV Last administered on 10/13/16 16:25; Start 10/13/16 at 15:00; Stop 10/13/16 at 15:01; Status DC Fentanyl Citrate (Fentanyl 2ml Vial) 100 mcg 1X ONCE IV Last administered on 16:26; Start 10/13/16 at 15:00; Stop 10/13/16 at 15:01; Status DC Fentanyl Citrate (Fentanyl 2ml Vial) 50 mcg PRN Q2HR PRN IV SEVERE PAIN Last administered on 10/14/16 20:58; Start 10/14/16 at 01:30 Levofloxacin (Levaquin) 250 mg DAILY06 PO Last administered on 10/21/16 05:57 ; Start 10/16/16 at 06:00 Acetaminophen/ Hydrocodone Bitart 1 tab 1 tab PRN Q4HRS PRN PO PAIN Last administered on 10/18/16 21:25; Start 10/15/16 at 17:45 Magnesium Sulfate/ Dextrose 50 ml @ 25 mls/hr PRN DAILY PRN IV for Mag < 1.7 on am labs Last administered on 10/17/16 10:26; Start 10/16/16 at 14:45 Potassium Chloride 50 ml @ 50 mls/hr PRN Q6HRS PRN IV For K < 3.7; Start at 14:45 Potassium Chloride (KCl Premix 20meq) 50 ml @ 50 mls/hr PRN Q2HR PRN IV total of 40mEq for K < 3.5; Start 10/16/16 at 14:45 Calcitonin [place] 400 unit 400 unit BID SQ Last administered on 10/19/16 13:50 ; Start 10/16/16 at 21:00; Stop 10/19/16 at 09:01; Status DC Potassium Chloride 40 meq/ Sodium Chloride 1,020 ml @ 100 mls/hr [id number] IV Last administered on 10/17/16 22:37; Start 10/17/16 at 09:15; Stop 10/18/16 at 05: 38; Status DC Sodium Chloride (Iv Sodium Chloride 0.9% 1000ml Bag) 1,000 ml @ 100 mls/hr Q10H IV Last administered on 10/20/16 16:38; Start 10/18/16 at 06:00 Allopurinol (Zyloprim) 100 mg DAILY PO Last administered on 10/21/16 10:00; Start 10/17/16 at 10:30 Lidocaine/Sodium Bicarbonate (Buffered Lidocaine 1%) 20 ml 1X ONCE IJ Last administered on 10/18/16 11:54; Start 10/18/16 at 10:30; Stop 10/18/16 at 10:31; Status DC Midazolam HCl (Versed) 5 mg STK-MED ONCE .ROUTE ; Start 10/18/16 at 10:26; Stop 10/18/16 at 10:27; Status DC Fentanyl Citrate (Fentanyl 5ml Vial) 250 mcg STK-MED ONCE .ROUTE ; Start at 10:26; Stop 10/18/16 at 10:27; Status DC Midazolam HCl (Versed) 5 mg 1X ONCE IV Last administered on 10/18/16 11:55; Start 10/18/16 at 10:30; Stop 10/18/16 at 10:35; Status DC Fentanyl Citrate (Fentanyl 5ml Vial) 250 mcg 1X ONCE IV Last administered on 11:55; Start 10/18/16 at 10:30; Stop 10/18/16 at 10:35; Status DC Heparin Sodium (Porcine) (Hep Lock Adult) 500 unit STK-MED ONCE IV ; Start at 11:02; Stop 10/18/16 at 11:03; Status DC Lidocaine/ Epinephrine 20 ml 20 ml STK-MED ONCE .ROUTE ; Start 10/18/16 at 11:02 ; Stop 10/18/16 at 11:03; Status DC Heparin Sodium/ Sodium Chloride 500 ml @ As Directed STK-MED ONCE .ROUTE ; Start 10/18/16 at 11:02; Stop 10/18/16 at 11:03; Status DC Vancomycin HCl 250 ml @ As Directed STK-MED ONCE .ROUTE ; Start 10/18/16 at 11: 02; Stop 10/18/16 at 11:03; Status DC Cefazolin Sodium (Ancef 1gm Ivpb For Omni) 50 ml @ As Directed STK-MED ONCE IV ; Start 10/18/16 at 11:18; Stop 10/18/16 at 11:19; Status DC Heparin Sodium/ Sodium Chloride 1000 unit 1,000 unit 1X ONCE IART Last administered on 10/18/16 11:53; Start 10/18/16 at 11:30; Stop 10/18/16 at 11:35; Status DC Cefazolin Sodium 50 ml @ 100 mls/hr 1X ONCE IV Last administered on 10/18/16 11:59; Start 10/18/16 at 11:30; Stop 10/18/16 at 11:59; Status DC Vancomycin HCl 250 ml @ 250 mls/hr 1X ONCE IRR Last administered on 10/18/16 11:54; Start 10/18/16 at 11:30; Stop 10/18/16 at 12:29; Status DC Heparin Sodium (Porcine) (Hep Lock Adult) 500 unit 1X ONCE IV Last administered on 10/18/16 11:59; Start 10/18/16 at 11:30; Stop 10/18/16 at 11:35; Status DC Lidocaine/ Epinephrine 20 ml 20 ml 1X ONCE IJ Last administered on 10/18/16 11 :56; Start 10/18/16 at 11:30; Stop 10/18/16 at 11:35; Status DC Rituximab 775 mg/ Sodium Chloride 852.5 ml @ 213.125 mls/hr 1X ONCE IV Last administered on 10/19/16 12:00; Start 10/19/16 at 11:30; Stop 10/19/16 at 15:29; Status DC Cyclophosphamide 1500 mg/Sodium Chloride 250 ml @ 500 mls/hr ONCE ONCE IV Last administered on 10/19/16 10:13; Start 10/19/16 at 09:00; Stop 10/19/16 at 09: 29; Status DC Doxorubicin HCl 100 mg/ Miscellaneous 50 ml @ 600 mls/hr ONCE ONCE IV Last administered on 10/19/16 11:11; Start 10/19/16 at 09:00; Stop 10/19/16 at 09:04; Status DC Vincristine Sulfate/Sodium Chloride (Oncovin/Iv Sodium Chloride 0.9% 50ml) 50 ml @ 275 mls/hr ONCE ONCE IV Last administered on 10/19/16 11:14; Start at 09:00; Stop 10/19/16 at 09:10; Status DC Tbo-Filgrastim (Granix) 480 mcg QHS SQ Last administered on 10/20/16 21:54; Start 10/20/16 at 21:00; Stop 10/29/16 at 23:00 Acetaminophen (Tylenol) 650 mg ONCE ONCE PO Last administered on 10/19/16 11: 16; Start 10/19/16 at 11:30; Stop 10/19/16 at 11:31; Status DC Diphenhydramine HCl 50 mg 50 mg ONCE ONCE PO Last administered on 10/19/16 11: 16; Start 10/19/16 at 11:00; Stop 10/19/16 at 11:01; Status DC Ondansetron HCl/ Sodium Chloride (Zofran/Iv Sodium Chloride 0.9% 50ml) 56 ml @ 112 mls/hr ONCE ONCE IV Last administered on 10/19/16 09:06; Start 10/19/16 at 08:30; Stop 10/19/16 at 08:59; Status DC Ondansetron HCl (Zofran) 4 mg PRN Q4HRS PRN IV NAUSEA/VOMITING; Start 10/18/16 at 14:45 Prednisone (Prednisone) 100 mg DAILY PO Last administered on 10/21/16 10:00; Start 10/19/16 at 09:00; Stop 10/23/16 at 09:01 Dexamethasone 20 mg 20 mg 1X ONCE PO Last administered on 10/19/16 09:07; Start 10/19/16 at 08:30; Stop 10/19/16 at 08:31; Status DC Magnesium Sulfate/ Dextrose 50 ml @ 25 mls/hr 1X ONCE IV Last administered on 10/19/16 06:05; Start 10/19/16 at 05:45; Stop 10/19/16 at 07:44; Status DC Potassium Chloride (KCl Premix 20meq) 50 ml @ 25 mls/hr Q2HR IV Last administered on 10/20/16 18:15; Start 10/20/16 at 16:00; Stop 10/20/16 at 19:59 ; Status DC Active Scripts Active Reported Fenofibrate (Fenofibrate Nanocrystallized) 145 Mg Tablet 1 Tab PO DAILYWLUN Potassium Chloride 20 Meq Tablet.er 20 Meq PO DAILYWSUP Calcium (Calcium Carbonate) 600 Mg Tablet 600 Mg PO Vytorin 10-80 Mg Tablet (Ezetimibe/Simvastatin) 1 Each Tablet 1 Each PO HS Multi-Vitamin Daily (Multivitamin) 1 Each Tablet 1 Each PO DAILY Vitamin D3 (Cholecalciferol (Vitamin D3)) 5,000 Unit Tablet 1 Tab PO DAILY Pradaxa (Dabigatran Etexilate Mesylate) 150 Mg Capsule 1 Cap PO BID Zoloft (Sertraline Hcl) 50 Mg Tablet 1 Tab PO HS Tamsulosin Hcl 0.4 Mg Cap.er.24h 1 Cap PO HS Losartan Potassium 100 Mg Tablet 100 Mg PO HS Klor-Con M20 (Potassium Chloride) 20 Meq Tab.er.prt 1 Tab PO DAILY Spironolactone 25 Mg Tablet 1 Tab PO DAILY Aspirin 81 Mg Tab.chew 1 Tab PO DAILY Carvedilol 25 Mg Tablet 1 Tab PO BID Vitals/I & O Vital Sign - Last 24 Hours 10/20/16 10/20/16 10/20/16 10/20/16 15:00 16:37 19:00 20:20 Temp 96.3 98.7 96.3 98.7 Pulse 84 84 86 Resp 16 20 B/P 129/76 129/76 127/73 Pulse Ox 94 95 O2 Delivery Room Air Room Air Room Air 10/20/16 10/20/16 10/21/16 10/21/16 21:53 23:25 03:08 07:00 Temp 98.8 98.5 98.2 98.8 98.5 98.2 Pulse 86 88 83 89 Resp 20 20 20 B/P 127/73 113/65 135/88 154/87 Pulse Ox 94 94 93 O2 Delivery Room Air Room Air Room Air 10/21/16 10/21/16 10:00 11:00 Temp 98.1 98.1 Pulse 89 76 Resp 20 B/P 157/87 122/70 Pulse Ox 94 O2 Delivery Room Air Intake and Output 10/20/16 10/20/16 10/21/16 15:00 23:00 07:00 Intake Total 1864 ml Output Total 550 ml 300 ml Balance -550 ml 1564 ml MARRY SALGADO MD Oct 21, 2016 14:11
[2016-10-21 15:00] VITALS: BP 144/83
[2016-10-21] MEDS ORDERED: SODIUM PHOSPHATES 19/7GM 133 ML ENEMA. PR ONE (16:45)
[2016-10-21] MEDS: MAGNESIUM HYDROXIDE 2,400 MG/30 ML ORAL.SUSP. PO PRN (18:03)
[2016-10-21 19:00] VITALS: BP 139/88
[2016-10-21] MEDS: TBO-FILGRASTIM 480 MCG/0.8 ML SYRINGE. SQ SCH (21:00)
[2016-10-21] MEDS: TAMSULOSIN 0.4 MG CAP.ER.24H. PO SCH (22:54)
[2016-10-21] MEDS: LOSARTAN POTASSIUM 50 MG TABLET. PO SCH (22:55)
[2016-10-21] MEDS: SIMVASTATIN 40 MG TABLET. PO SCH (22:55)
[2016-10-21] MEDS: SERTRALINE 50 MG TABLET. PO SCH (22:55)
[2016-10-21] MEDS: EZETIMIBE 10 MG TABLET PO SCH (22:58)
[2016-10-21 23:00] VITALS: BP 137/77
[2016-10-22 03:00] VITALS: BP 131/73
[2016-10-22 07:00] VITALS: BP 110/62
[2016-10-22] MEDS: MULTIVITAMIN with MINERAL TABLET. PO SCH (09:12)
[2016-10-22] MEDS: MAGNESIUM HYDROXIDE 2,400 MG/30 ML ORAL.SUSP. PO PRN (09:12)
[2016-10-22] MEDS: FENOFIBRATE,MICRONIZED 134 MG CAPSULE PO SCH (09:12)
[2016-10-22] MEDS: CHOLECALCIFEROL (VITAMIN D3) 5,000 UNIT CAPSULE PO SCH (09:13)
[2016-10-22] MEDS: CARVEDILOL 12.5 MG TABLET PO SCH ×2 (09:13→16:11)
[2016-10-22] MEDS: PREDNISONE 20 MG TABLET PO SCH (09:13)
[2016-10-22] MEDS: HYDROCODONE/APAP 5/325MG TABLET. PO PRN (09:14)
[2016-10-22] MEDS: ALLOPURINOL 100 MG TABLET. PO SCH (09:14)
[2016-10-22] MEDS: IV NORMAL SALINE 1000ML BAG 1,000 ML IV SCH ×3 (10:00→21:28)
[2016-10-22 10:53] LABS: HEMATOCRIT 23.3 % (39.0-53.0); HEMOGLOBIN 7.8 g/dL (13.0-17.5); RED BLOOD COUNT 2.58 x10^6/uL (4.30-5.70); RED CELL DISTRIBUTION WIDTH 14.5 % (11.5-14.5); WHITE BLOOD COUNT 15.2 x10^3/uL (4.0-11.0)
[2016-10-22 11:00] VITALS: BP 123/74
[2016-10-22 11:01] LABS: ALBUMIN 2.1 g/dL (3.4-5.0); ALBUMIN/GLOBULIN RATIO 0.8 (1.0-1.7); CALCIUM 9.6 mg/dL (8.5-10.1); CREATININE 1.6 mg/dL (0.7-1.3); GFR 41.5; PHOSPHORUS 2.8 mg/dL (2.6-4.7); POTASSIUM 3.5 mmol/L (3.5-5.1); TOTAL BILIRUBIN 0.4 mg/dL (0.2-1.0); TOTAL PROTEIN 4.9 g/dL (6.4-8.2)
--- NOTE | 2016-10-22 11:58 | PDOC ---
SUBJECTIVE Subjective constipated, seems impacted OBJECTIVE Vital Signs Vital Signs Date Time Temp Pulse Resp B/P Pulse Ox O2 Delivery O2 Flow Rate FiO2 10/22/16 09:14 16 Room Air 10/22/16 09:13 83 110/62 10/22/16 07:00 97.8 83 20 110/62 94 Room Air 97.8 10/22/16 03:00 97.7 88 20 131/73 92 Room Air 97.7 10/21/16 23:00 97.5 89 20 137/77 94 Room Air 97.5 10/21/16 22:55 98 139/88 10/21/16 19:00 98.3 98 20 139/88 93 Room Air 98.3 10/21/16 18:03 85 144/83 10/21/16 15:00 98.2 85 20 144/83 93 Room Air 98.2 I & O Intake and Output 10/22/16 07:00 Intake Total 1270 ml Output Total 1100 ml Balance 170 ml Intake Oral 270 ml IV Total 1000 ml Drainage Total 1100 ml PHYSICAL EXAM Physical Exam no change abd slightly distended +BS ASSESSMENT/PLAN Assessment/Plan 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 Pt tolerated well. 2- leukocytosis due to granix better today 3. Acute renal failure -s/p nephrostomy and stent, kidney function better 4. Hypercalcemia -secondary to malignancy given Miacalcin 5. constipation, enema and check for impaction today Dr. Chung will return in AM Problems: COMMENT Lab Laboratory Tests Test 10/22/16 05:00 10/22/16 10:25 Magnesium Level 1.8mg/dL (1.8-2.4) White Blood Count 15.2x10^3/uL (4.0-11.0) Red Blood Count 2.58x10^6/uL (4.30-5.70) Hemoglobin 7.8g/dL (13.0-17.5) Hematocrit 23.3% (39.0-53.0) Mean Corpuscular Volume 90fL (79-100) Mean Corpuscular Hemoglobin 30pg (25-35) Mean Corpuscular Hemoglobin Concent 34g/dL (31-37) Red Cell Distribution Width 14.5% (11.5-14.5) Platelet Count 126x10^3/uL (140-400) Sodium Level 143mmol/L (136-145) Potassium Level 3.5mmol/L (3.5-5.1) Chloride Level 110mmol/L (98-107) Carbon Dioxide Level 27mmol/L (21-32) Anion Gap 6 (6-14) Blood Urea Nitrogen 46mg/dL (8-26) Creatinine 1.6mg/dL (0.7-1.3) Estimated GFR (Cockcroft-Gault) 41.5 BUN/Creatinine Ratio 29 (6-20) Glucose Level 91mg/dL (70-99) Calcium Level 9.6mg/dL (8.5-10.1) Phosphorus Level 2.8mg/dL (2.6-4.7) Total Bilirubin 0.4mg/dL (0.2-1.0) Aspartate Amino Transf (AST/SGOT) 25U/L (15-37) Alanine Aminotransferase (ALT/SGPT) 15U/L (16-63) Alkaline Phosphatase 57U/L (46-116) Total Protein 4.9g/dL (6.4-8.2) Albumin 2.1g/dL (3.4-5.0) Albumin/Globulin Ratio 0.8 (1.0-1.7) JOSE LUIS HEATON MD Oct 22, 2016 11:58
--- NOTE | 2016-10-22 14:39 | PDOC ---
Subjective: Subjective: Onc f/u- DLBCL Pt denies any fatigue, CP, SOB, abd pain, n/v/d. Actually feels constipated. Family present at bedside. Objective: Vital Signs: Vital Signs Date Time Temp Pulse Resp B/P Pulse Ox O2 Delivery O2 Flow Rate FiO2 10/22/16 11:00 98.3 87 20 123/74 93 Room Air 98.3 Physical Exam: Heart: Regular rate Extremities: No edema General: Alert, Oriented X3, Cooperative, No acute distress Lungs: Normal air movement Psych/Mental Status: Mental status NL, Mood NL Labs/Imaging: CBC, CMP reviewed Ca WNL Assessment/Plan A/P: 1. 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 Ross as outpt - On allopurinol ppx - On Neupogen daily while admitted resulting in mild neutrophilia. Counts will drop further before improving. 2. Renal failure- due to bilateral hydronephrosis from abdominal mass s/p bilateral stents- Improving 3. Hypercalcemia, s/p calcitonin, IVF. No bisphosphonates with renal failure. Now normal. Likely malignancy related, improved after chemo. 4. Constipation- Miralax, senokot S bid ordered. Pt likely going to SNF on DC. Ok to DC from onc standpoint at any time. Dr. Ross will return tomorrow. ADILENE LOPEZ DO Oct 22, 2016 14:39
[2016-10-22] MEDS ORDERED: SENNOSIDES/DOCUSATE 8.6/50MG TABLET. PO PRN (14:45)
[2016-10-22 15:00] VITALS: BP 115/72
[2016-10-22] MEDS ORDERED: POLYETHYLENE GLYCOL 3350 238 GM POWDER PO ONE (15:00)
[2016-10-22] MEDS: LEVOFLOXACIN 250 MG TABLET. PO SCH (16:12)
[2016-10-22 19:00] VITALS: BP 113/72
[2016-10-22] MEDS: EZETIMIBE 10 MG TABLET PO SCH (21:25)
[2016-10-22] MEDS: SERTRALINE 50 MG TABLET. PO SCH (21:25)
[2016-10-22] MEDS: TAMSULOSIN 0.4 MG CAP.ER.24H. PO SCH (21:25)
[2016-10-22] MEDS: LOSARTAN POTASSIUM 50 MG TABLET. PO SCH (21:25)
[2016-10-22] MEDS: SIMVASTATIN 40 MG TABLET. PO SCH (21:26)
[2016-10-22] MEDS: TBO-FILGRASTIM 480 MCG/0.8 ML SYRINGE. SQ SCH (21:47)
[2016-10-22 23:28] VITALS: BP 170/86
[2016-10-23 03:36] VITALS: BP 142/103
[2016-10-23 05:52] LABS: HEMATOCRIT 23.6 % (39.0-53.0); HEMOGLOBIN 7.7 g/dL (13.0-17.5); RED BLOOD COUNT 2.55 x10^6/uL (4.30-5.70); RED CELL DISTRIBUTION WIDTH 14.9 % (11.5-14.5); WHITE BLOOD COUNT 17.3 x10^3/uL (4.0-11.0)
[2016-10-23] MEDS: LEVOFLOXACIN 250 MG TABLET. PO SCH (06:07)
[2016-10-23 06:10] LABS: ALBUMIN 2.2 g/dL (3.4-5.0); CALCIUM 9.5 mg/dL (8.5-10.1); CREATININE 1.4 mg/dL (0.7-1.3); GFR 48.4; POTASSIUM 3.7 mmol/L (3.5-5.1)
[2016-10-23] MEDS: IV NORMAL SALINE 1000ML BAG 1,000 ML IV SCH ×2 (06:10→17:34)
[2016-10-23 07:00] VITALS: BP 138/90
--- NOTE | 2016-10-23 08:49 | PDOC ---
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 s/p CT-guided biopsy of this mass 10/13/16, LDH 334 on 10/16/16. I d/w Dr aPtel, and received final confirmation that this is diffuse large B cell lymphoma. CT neck/chest 10/17/15revealed cervical LN. Echo 10/11/16 reveals normal EF 60-65%. Bone scan 10/17/15: No definite evidence of metastatic disease. Increased uptake in the pelvis compatible and left clavicle compatible with Paget's changes. Intense uptake at L2 compatible with the known fracture at this level. Mild uptake at T6 suggesting an old compression fracturepending. s/p portacath, bone marrow bx 10/18/16, S/p chemo with CHOP+R 10/19/16. Continue prednisone 100 mg daily to complete 5 days (day 5 today). Monitor for toxicities of chemo. No side effects so far, I d/w Dr Chung. Continue allopurinol prophylaxis since 10/17/16 (normal uric acid). Prophylactic Granix 480 mcg daily s/q x 10 days started 10/20/2016. 2. Hematuria/bleeding after procedure on 10/12/2016. He underwent cystoscopy and attempted stent placement which was unsuccessful. He had received Pradaxa on 10/11/2016 and hence he received Praxbind on 10/12/2016 at 4:30 p.m. The bleeding has now resolved 3. Coagulopathy due to Pradaxa improved after Praxbind infusion on 10/12/2016. 4. Renal failure. Appreciate Nephrology consultation, etiology thought to be due to bilateral hydronephrosis from abdominal mass. I d/w Dr Johnson who recommended changing the bilateral percutaneous nephrostomy drains to internal stents and I agree. I d/w Dr Kowalski 5. Paget's disease. He also has a T6, L2 compression fracture, thought to be due to Paget's disease. 6. Melanoma diagnosed several years ago, being followed by Dermatology. 7. Serum protein electrophoresis and immunofixation is negative. There is no clinical evidence to suggest myeloma. 8. Hypercalcemia could be secondary to underlying malignancy. On miacalcin. Ca normal 9. Hydronephrosis - I d/w Dr Johnson who recommended changing the bilateral percutaneous nephrostomy drains to internal stents and I agree. I d/w Dr Kowalski 10. Leukocytosis due to granix - monitor. Continue granix. Comment Review of Relevant I have reviewed the following items juan (where applicable) has been applied. Labs Laboratory Tests Test 10/21/16 10:00 10/22/16 05:00 10/22/16 10:25 10/23/16 05:15 White Blood Count 23.6x10^3/uL (4.0-11.0) 15.2x10^3/uL (4.0-11.0) 17.3x10^3/uL (4.0-11.0) Red Blood Count 2.91x10^6/uL (4.30-5.70) 2.58x10^6/uL (4.30-5.70) 2.55x10^6/uL (4.30-5.70) Hemoglobin 8.8g/dL (13.0-17.5) 7.8g/dL (13.0-17.5) 7.7g/dL (13.0-17.5) Hematocrit 26.3% (39.0-53.0) 23.3% (39.0-53.0) 23.6% (39.0-53.0) Mean Corpuscular Volume 90fL (79-100) 90fL (79-100) 93fL (79-100) Mean Corpuscular Hemoglobin 30pg (25-35) 30pg (25-35) 30pg (25-35) Mean Corpuscular Hemoglobin Concent 34g/dL (31-37) 34g/dL (31-37) 33g/dL (31-37) Red Cell Distribution Width 14.9% (11.5-14.5) 14.5% (11.5-14.5) 14.9% (11.5-14.5) Platelet Count 171x10^3/uL (140-400) 126x10^3/uL (140-400) 106x10^3/uL (140-400) Magnesium Level 1.8mg/dL (1.8-2.4) 1.9mg/dL (1.8-2.4) Sodium Level 143mmol/L (136-145) 145mmol/L (136-145) Potassium Level 3.5mmol/L (3.5-5.1) 3.7mmol/L (3.5-5.1) Chloride Level 110mmol/L (98-107) 110mmol/L (98-107) Carbon Dioxide Level 27mmol/L (21-32) 27mmol/L (21-32) Anion Gap 6 (6-14) 8 (6-14) Blood Urea Nitrogen 46mg/dL (8-26) 47mg/dL (8-26) Creatinine 1.6mg/dL (0.7-1.3) 1.4mg/dL (0.7-1.3) Estimated GFR (Cockcroft-Gault) 41.5 48.4 BUN/Creatinine Ratio 29 (6-20) Glucose Level 91mg/dL (70-99) 98mg/dL (70-99) Calcium Level 9.6mg/dL (8.5-10.1) 9.5mg/dL (8.5-10.1) Phosphorus Level 2.8mg/dL (2.6-4.7) 3.0mg/dL (2.6-4.7) Total Bilirubin 0.4mg/dL (0.2-1.0) Aspartate Amino Transf (AST/SGOT) 25U/L (15-37) Alanine Aminotransferase (ALT/SGPT) 15U/L (16-63) Alkaline Phosphatase 57U/L (46-116) Total Protein 4.9g/dL (6.4-8.2) Albumin 2.1g/dL (3.4-5.0) 2.2g/dL (3.4-5.0) Albumin/Globulin Ratio 0.8 (1.0-1.7) Laboratory Tests Test 10/22/16 10:25 10/23/16 05:15 White Blood Count 15.2x10^3/uL (4.0-11.0) 17.3x10^3/uL (4.0-11.0) Red Blood Count 2.58x10^6/uL (4.30-5.70) 2.55x10^6/uL (4.30-5.70) Hemoglobin 7.8g/dL (13.0-17.5) 7.7g/dL (13.0-17.5) Hematocrit 23.3% (39.0-53.0) 23.6% (39.0-53.0) Mean Corpuscular Volume 90fL (79-100) 93fL (79-100) Mean Corpuscular Hemoglobin 30pg (25-35) 30pg (25-35) Mean Corpuscular Hemoglobin Concent 34g/dL (31-37) 33g/dL (31-37) Red Cell Distribution Width 14.5% (11.5-14.5) 14.9% (11.5-14.5) Platelet Count 126x10^3/uL (140-400) 106x10^3/uL (140-400) Sodium Level 143mmol/L (136-145) 145mmol/L (136-145) Potassium Level 3.5mmol/L (3.5-5.1) 3.7mmol/L (3.5-5.1) Chloride Level 110mmol/L (98-107) 110mmol/L (98-107) Carbon Dioxide Level 27mmol/L (21-32) 27mmol/L (21-32) Anion Gap 6 (6-14) 8 (6-14) Blood Urea Nitrogen 46mg/dL (8-26) 47mg/dL (8-26) Creatinine 1.6mg/dL (0.7-1.3) 1.4mg/dL (0.7-1.3) Estimated GFR (Cockcroft-Gault) 41.5 48.4 BUN/Creatinine Ratio 29 (6-20) Glucose Level 91mg/dL (70-99) 98mg/dL (70-99) Calcium Level 9.6mg/dL (8.5-10.1) 9.5mg/dL (8.5-10.1) Phosphorus Level 2.8mg/dL (2.6-4.7) 3.0mg/dL (2.6-4.7) Total Bilirubin 0.4mg/dL (0.2-1.0) Aspartate Amino Transf (AST/SGOT) 25U/L (15-37) Alanine Aminotransferase (ALT/SGPT) 15U/L (16-63) Alkaline Phosphatase 57U/L (46-116) Total Protein 4.9g/dL (6.4-8.2) Albumin 2.1g/dL (3.4-5.0) 2.2g/dL (3.4-5.0) Albumin/Globulin Ratio 0.8 (1.0-1.7) Magnesium Level 1.9mg/dL (1.8-2.4) Medications Current Medications Sodium Chloride 1,000 ml @ 100 mls/hr Q10H IV Last administered on 10/11/16 08 :49; Start 10/10/16 at 11:00; Stop 10/11/16 at 21:27; Status DC Magnesium Sulfate/ Dextrose (Magnesium Sulfate PREMIX 2GM) 50 ml @ 25 mls/hr PRN DAILY PRN IV for Mag < 1.7 on am labs Last administered on 10/14/16 13:04; Start 10/10/16 at 13:30; Stop 10/16/16 at 16:08; Status DC Sodium Polystyrene Sulfonate (Kayexalate) 45 gm 1X ONCE PO Last administered on 10/10/16 15:07; Start 10/10/16 at 13:30; Stop 10/10/16 at 13:44; Status DC Aspirin (Children'S Aspirin) 81 mg DAILY08 PO Last administered on 10/12/16 08: 47; Start 10/10/16 at 14:00; Stop 10/12/16 at 19:37; Status DC Dabigatran (Pradaxa) 150 mg BID PO Last administered on 10/10/16 21:48; Start 10/10/16 at 21:00; Stop 10/11/16 at 08:25; Status DC Potassium Chloride (Klor-Con) 20 meq DAILYWSUP PO ; Start 10/10/16 at 17:00; Stop 10/10/16 at 17:00; Status DC Sertraline HCl (Zoloft) 50 mg HS PO Last administered on 10/22/16 21:25; Start 10/10/16 at 21:00 Spironolactone (Aldactone) 25 mg DAILY PO ; Start 10/10/16 at 14:00; Stop at 14:17; Status DC Tamsulosin HCl (Flomax) 0.4 mg HS PO Last administered on 10/22/16 21:25; Start 10/10/16 at 21:00 Carvedilol (Coreg) 25 mg BIDWMEALS PO Last administered on 10/22/16 16:11; Start 10/10/16 at 17:00 Vitamin D (Vitamin D3) 5,000 unit DAILY PO Last administered on 10/22/16 09:13 ; Start 10/10/16 at 14:00 EZETIMIBE (Zetia) 10 mg DAILY PO ; Start 10/10/16 at 14:00; Stop 10/10/16 at 21: 00; Status Cancel Fenofibrate (Lofibra) 134 mg DAILY PO Last administered on 10/22/16 09:12; Start 10/10/16 at 14:00 Losartan Potassium (Cozaar) 100 mg QHS PO Last administered on 10/22/16 21:25 ; Start 10/10/16 at 21:00 Multivitamins/ Calcium (Thera M Plus) 1 tab DAILY PO Last administered on 09:12; Start 10/10/16 at 14:00 Non-Formulary Medication 20 meq DAILYWSUP PO ; Start 10/10/16 at 17:00; Status UNV Simvastatin (Zocor) 80 mg QHS PO Last administered on 10/22/16 21:26; Start at 21:[address] [place] (Miacalcin) 400 unit BID SQ Last administered on 10/12/16 08: 51; Start 10/10/16 at 21:00; Stop 10/12/16 at 23:52; Status DC Info (Anti-Coagulation Monitoring By Pharmacy) 1 each PRN DAILY PRN MC SEE COMMENTS Last administered on 10/11/16 08:28; Start 10/10/16 at 14:45; Stop 10/13 at 09:44; Status DC Ondansetron HCl (Zofran) 4 mg PRN Q6HRS PRN IV NAUSEA/VOMITING; Start 10/10/16 at 15:30; Status Cancel EZETIMIBE (Zetia) 10 mg HS PO Last administered on 10/22/16 21:25; Start 10/10 at 21:00 Dabigatran (Pradaxa) 75 mg BID PO Last administered on 10/11/16 10:03; Start at 09:00; Stop 10/12/16 at 14:56; Status DC Ondansetron HCl (Zofran) 4 mg PRN Q6HRS PRN IV Nausea; Start 10/12/16 at 09:30; Stop 10/13/16 at 09:29; Status DC Fentanyl Citrate (Fentanyl 2ml Vial) 25 mcg PRN Q5MIN PRN IV MILD PAIN; Start 10/12/16 at 09:30; Stop 10/13/16 at 09:29; Status DC Fentanyl Citrate (Fentanyl 2ml Vial) 50 mcg PRN Q5MIN PRN IV MODERATE PAIN; Start 10/12/16 at 09:30; Stop 10/13/16 at 09:29; Status DC Morphine Sulfate 1 mg 1 mg PRN Q10MIN PRN IV SEVERE PAIN; Start 10/12/16 at 09: 30; Stop 10/13/16 at 09:29; Status DC Lactated Ringer's (Iv Lactated Ringers) 1,000 ml @ 0 mls/hr Q0M IV Last administered on 10/12/16 12:43; Start 10/12/16 at 09:29; Stop 10/12/16 at 21:28; Status DC Lidocaine HCl 2 ml 1X PRN PRN ID IV START; Start 10/12/16 at 09:30; Stop at 09:29; Status DC Hydromorphone HCl (Dilaudid) 0.5 mg PRN Q10MIN PRN IV SEV PAIN,Second choice; Start 10/12/16 at 09:30; Stop 10/13/16 at 09:29; Status DC Prochlorperazine Edisylate 5 mg 5 mg PACU PRN PRN IV NAUSEA; Start 10/12/16 at 09:30; Stop 10/13/16 at 09:29; Status DC Levofloxacin/ Dextrose (LEVAQUIN 250mg PREMIX) 50 ml @ 50 mls/hr Q24H IV Last administered on 10/15/16 08:39; Start 10/12/16 at 10:00; Stop 10/15/16 at 15:52; Status DC Iohexol 50 ml 50 ml STK-MED ONCE .ROUTE ; Start 10/12/16 at 11:38; Stop 10/12/16 at 11:39; Status DC Propofol (Diprivan) 20 ml @ As Directed STK-MED ONCE IV ; Start 10/12/16 at 12:25 ; Stop 10/12/16 at 12:26; Status DC Lidocaine HCl 100 mg STK-MED ONCE .ROUTE ; Start 10/12/16 at 12:25; Stop 10/12/16 at 12:26; Status DC Dexamethasone Sodium Phosphate (Decadron) 20 mg STK-MED ONCE .ROUTE ; Start 10/12 at 12:25; Stop 10/12/16 at 12:26; Status DC Ondansetron HCl (Zofran) 4 mg STK-MED ONCE .ROUTE ; Start 10/12/16 at 12:25; Stop 10/12/16 at 12:26; Status DC Fentanyl Citrate (Fentanyl 2ml Vial) 100 mcg STK-MED ONCE .ROUTE ; Start at 12:25; Stop 10/12/16 at 12:26; Status DC Phenylephrine HCl 1 mg STK-MED ONCE IV ; Start 10/12/16 at 13:59; Stop 10/12/16 at 14:00; Status DC Apixaban (Eliquis) 2.5 mg BID PO ; Start 10/12/16 at 21:00; Stop 10/12/16 at 21:00 ; Status DC Idarucizumab (Praxbind) 5 gm 1X ONCE IV Last administered on 10/12/16 16:48; Start 10/12/16 at 16:30; Stop 10/12/16 at 16:31; Status DC Heparin Sodium (Porcine) 10,000 unit STK-MED ONCE .ROUTE ; Start 10/12/16 at 15: 40; Stop 10/12/16 at 15:41; Status DC Lidocaine HCl 20 ml 20 ml STK-MED ONCE .ROUTE ; Start 10/12/16 at 15:40; Stop 10/12/16 at 15:41; Status DC Heparin Sodium/ Sodium Chloride 500 ml @ As Directed STK-MED ONCE .ROUTE ; Start 10/12/16 at 15:40; Stop 10/12/16 at 15:41; Status DC Lidocaine/ Epinephrine (Xylocaine 1%-Epi 1:100,000) 20 ml STK-MED ONCE .ROUTE ; Start 10/12/16 at 15:43; Stop 10/12/16 at 15:44; Status DC Heparin Sodium (Porcine) 2,400 unit 1X ONCE INT CAT Last administered on 16:27; Start 10/12/16 at 16:30; Stop 10/12/16 at 16:31; Status DC Heparin Sodium/ Sodium Chloride 6 unit 1X ONCE IV Last administered on 16:27; Start 10/12/16 at 16:30; Stop 10/12/16 at 16:31; Status DC Lidocaine/ Epinephrine 2 ml 2 ml 1X ONCE IJ Last administered on 10/12/16 16: 28; Start 10/12/16 at 16:30; Stop 10/12/16 at 16:31; Status DC Sodium Chloride (Iv Sodium Chloride 0.9% 1000ml Bag) 1,000 ml @ 1,000 mls/hr Q1H PRN IV hypotension; Start 10/12/16 at 17:48; Stop 10/12/16 at 23:47; Status DC Diphenhydramine HCl (Benadryl) 25 mg 1X PRN PRN IV ITCHING; Start 10/12/16 at 18 :00; Stop 10/13/16 at 13:06; Status DC Diphenhydramine HCl (Benadryl) 25 mg 1X PRN PRN IV ITCHING; Start 10/12/16 at 18 :00; Stop 10/13/16 at 13:06; Status DC Sodium Chloride (Normal Saline Flush) 10 ml 1X PRN PRN IV AP catheter pack; Start 10/12/16 at 18:00; Stop 10/13/16 at 13:06; Status DC Sodium Chloride 10 ml 10 ml 1X PRN PRN IV WAITER/WAITRESS DINING CAR catheter pack; Start 10/12/16 at 18 :00; Stop 10/13/16 at 13:06; Status DC Sodium Chloride (Iv Sodium Chloride 0.9% 1000ml Bag) 1,000 ml @ 400 mls/hr Q2H30M PRN IV PATENCY; Start 10/12/16 at 17:48; Stop 10/13/16 at 05:47; Status DC Sodium Chloride (Normal Saline Flush) 10 ml 1X PRN PRN IV AP catheter pack; Start 10/13/16 at 11:00; Stop 10/13/16 at 18:00; Status DC Sodium Chloride (Normal Saline Flush) 10 ml 1X PRN PRN IV WAITER/WAITRESS DINING CAR catheter pack; Start 10/13/16 at 11:00; Stop 10/13/16 at 18:00; Status DC Info (PHARMACY MONITORING -- do not chart) 1 each PRN DAILY PRN MC SEE COMMENTS ; Start 10/13/16 at 11:00 Info (PHARMACY MONITORING -- do not chart) 1 each PRN DAILY PRN MC SEE COMMENTS ; Start 10/13/16 at 11:00; Stop 10/13/16 at 11:05; Status DC Lidocaine/Sodium Bicarbonate 20 ml 20 ml 1X ONCE IJ Last administered on 16:23; Start 10/13/16 at 13:15; Stop 10/13/16 at 13:16; Status DC Levofloxacin/ Dextrose (LEVAQUIN 250mg PREMIX) 50 ml @ 100 mls/hr 1X ONCE IV Last administered on 10/13/16 16:25; Start 10/13/16 at 13:30; Stop 10/13/16 at 13: 59; Status DC Midazolam HCl (Versed) 2 mg STK-MED ONCE .ROUTE ; Start 10/13/16 at 14:03; Stop 10/13/16 at 14:04; Status DC Fentanyl Citrate (Fentanyl 2ml Vial) 100 mcg STK-MED ONCE .ROUTE ; Start at 14:03; Stop 10/13/16 at 14:04; Status DC Gelatin (Gelfoam Size 12-7mm) 1 each STK-MED ONCE .ROUTE ; Start 10/13/16 at 14: 44; Stop 10/13/16 at 14:45; Status DC Midazolam HCl (Versed) 2 mg 1X ONCE IV Last administered on 10/13/16 16:25; Start 10/13/16 at 15:00; Stop 10/13/16 at 15:01; Status DC Fentanyl Citrate (Fentanyl 2ml Vial) 100 mcg 1X ONCE IV Last administered on 16:26; Start 10/13/16 at 15:00; Stop 10/13/16 at 15:01; Status DC Fentanyl Citrate (Fentanyl 2ml Vial) 50 mcg PRN Q2HR PRN IV SEVERE PAIN Last administered on 10/14/16 20:58; Start 10/14/16 at 01:30 Levofloxacin (Levaquin) 250 mg DAILY06 PO Last administered on 10/23/16 06:07 ; Start 10/16/16 at 06:00 Acetaminophen/ Hydrocodone Bitart 1 tab 1 tab PRN Q4HRS PRN PO PAIN Last administered on 10/22/16 09:14; Start 10/15/16 at 17:45 Magnesium Sulfate/ Dextrose 50 ml @ 25 mls/hr PRN DAILY PRN IV for Mag < 1.7 on am labs Last administered on 10/17/16 10:26; Start 10/16/16 at 14:45 Potassium Chloride 50 ml @ 50 mls/hr PRN Q6HRS PRN IV For K < 3.7; Start at 14:45 Potassium Chloride (KCl Premix 20meq) 50 ml @ 50 mls/hr PRN Q2HR PRN IV total of 40mEq for K < 3.5; Start 10/16/16 at 14:[address] [place] 400 unit 400 unit BID SQ Last administered on 10/19/16 13:50 ; Start 10/16/16 at 21:00; Stop 10/19/16 at 09:01; Status DC Potassium Chloride 40 meq/ Sodium Chloride 1,020 ml @ 100 mls/hr [id number] IV Last administered on 10/17/16 22:37; Start 10/17/16 at 09:15; Stop 10/18/16 at 05: 38; Status DC Sodium Chloride (Iv Sodium Chloride 0.9% 1000ml Bag) 1,000 ml @ 100 mls/hr Q10H IV Last administered on 10/23/16 06:10; Start 10/18/16 at 06:00 Allopurinol (Zyloprim) 100 mg DAILY PO Last administered on 10/22/16 09:14; Start 10/17/16 at 10:30 Lidocaine/Sodium Bicarbonate (Buffered Lidocaine 1%) 20 ml 1X ONCE IJ Last administered on 10/18/16 11:54; Start 10/18/16 at 10:30; Stop 10/18/16 at 10:31; Status DC Midazolam HCl (Versed) 5 mg STK-MED ONCE .ROUTE ; Start 10/18/16 at 10:26; Stop 10/18/16 at 10:27; Status DC Fentanyl Citrate (Fentanyl 5ml Vial) 250 mcg STK-MED ONCE .ROUTE ; Start at 10:26; Stop 10/18/16 at 10:27; Status DC Midazolam HCl (Versed) 5 mg 1X ONCE IV Last administered on 10/18/16 11:55; Start 10/18/16 at 10:30; Stop 10/18/16 at 10:35; Status DC Fentanyl Citrate (Fentanyl 5ml Vial) 250 mcg 1X ONCE IV Last administered on 11:55; Start 10/18/16 at 10:30; Stop 10/18/16 at 10:35; Status DC Heparin Sodium (Porcine) (Hep Lock Adult) 500 unit STK-MED ONCE IV ; Start at 11:02; Stop 10/18/16 at 11:03; Status DC Lidocaine/ Epinephrine 20 ml 20 ml STK-MED ONCE .ROUTE ; Start 10/18/16 at 11:02 ; Stop 10/18/16 at 11:03; Status DC Heparin Sodium/ Sodium Chloride 500 ml @ As Directed STK-MED ONCE .ROUTE ; Start 10/18/16 at 11:02; Stop 10/18/16 at 11:03; Status DC Vancomycin HCl 250 ml @ As Directed STK-MED ONCE .ROUTE ; Start 10/18/16 at 11: 02; Stop 10/18/16 at 11:03; Status DC Cefazolin Sodium (Ancef 1gm Ivpb For Omni) 50 ml @ As Directed STK-MED ONCE IV ; Start 10/18/16 at 11:18; Stop 10/18/16 at 11:19; Status DC Heparin Sodium/ Sodium Chloride 1000 unit 1,000 unit 1X ONCE IART Last administered on 10/18/16 11:53; Start 10/18/16 at 11:30; Stop 10/18/16 at 11:35; Status DC Cefazolin Sodium 50 ml @ 100 mls/hr 1X ONCE IV Last administered on 10/18/16 11:59; Start 10/18/16 at 11:30; Stop 10/18/16 at 11:59; Status DC Vancomycin HCl 250 ml @ 250 mls/hr 1X ONCE IRR Last administered on 10/18/16 11:54; Start 10/18/16 at 11:30; Stop 10/18/16 at 12:29; Status DC Heparin Sodium (Porcine) (Hep Lock Adult) 500 unit 1X ONCE IV Last administered on 10/18/16 11:59; Start 10/18/16 at 11:30; Stop 10/18/16 at 11:35; Status DC Lidocaine/ Epinephrine 20 ml 20 ml 1X ONCE IJ Last administered on 10/18/16 11 :56; Start 10/18/16 at 11:30; Stop 10/18/16 at 11:35; Status DC Rituximab 775 mg/ Sodium Chloride 852.5 ml @ 213.125 mls/hr 1X ONCE IV Last administered on 10/19/16 12:00; Start 10/19/16 at 11:30; Stop 10/19/16 at 15:29; Status DC Cyclophosphamide 1500 mg/Sodium Chloride 250 ml @ 500 mls/hr ONCE ONCE IV Last administered on 10/19/16 10:13; Start 10/19/16 at 09:00; Stop 10/19/16 at 09: 29; Status DC Doxorubicin HCl 100 mg/ Miscellaneous 50 ml @ 600 mls/hr ONCE ONCE IV Last administered on 10/19/16 11:11; Start 10/19/16 at 09:00; Stop 10/19/16 at 09:04; Status DC Vincristine Sulfate/Sodium Chloride (Oncovin/Iv Sodium Chloride 0.9% 50ml) 50 ml @ 275 mls/hr ONCE ONCE IV Last administered on 10/19/16 11:14; Start at 09:00; Stop 10/19/16 at 09:10; Status DC Tbo-Filgrastim (Granix) 480 mcg QHS SQ Last administered on 10/22/16 21:47; Start 10/20/16 at 21:00; Stop 10/29/16 at 23:00 Acetaminophen (Tylenol) 650 mg ONCE ONCE PO Last administered on 10/19/16 11: 16; Start 10/19/16 at 11:30; Stop 10/19/16 at 11:31; Status DC Diphenhydramine HCl 50 mg 50 mg ONCE ONCE PO Last administered on 10/19/16 11: 16; Start 10/19/16 at 11:00; Stop 10/19/16 at 11:01; Status DC Ondansetron HCl/ Sodium Chloride (Zofran/Iv Sodium Chloride 0.9% 50ml) 56 ml @ 112 mls/hr ONCE ONCE IV Last administered on 10/19/16 09:06; Start 10/19/16 at 08:30; Stop 10/19/16 at 08:59; Status DC Ondansetron HCl (Zofran) 4 mg PRN Q4HRS PRN IV NAUSEA/VOMITING; Start 10/18/16 at 14:45 Prednisone (Prednisone) 100 mg DAILY PO Last administered on 10/22/16 09:13; Start 10/19/16 at 09:00; Stop 10/23/16 at 09:01 Dexamethasone 20 mg 20 mg 1X ONCE PO Last administered on 10/19/16 09:07; Start 10/19/16 at 08:30; Stop 10/19/16 at 08:31; Status DC Magnesium Sulfate/ Dextrose 50 ml @ 25 mls/hr 1X ONCE IV Last administered on 10/19/16 06:05; Start 10/19/16 at 05:45; Stop 10/19/16 at 07:44; Status DC Potassium Chloride (KCl Premix 20meq) 50 ml @ 25 mls/hr Q2HR IV Last administered on 10/20/16 18:15; Start 10/20/16 at 16:00; Stop 10/20/16 at 19:59 ; Status DC Magnesium Hydroxide (Milk Of Magnesia) 2,400 mg PRN DAILY PRN PO CONSTIPATION Last administered on 10/22/16 09:12; Start 10/21/16 at 16:30 Sodium Biphosphate/ Sodium Phosphate (Fleet Adult) 133 ml 1X ONCE AR Last administered on 2/11/17at 18:03; Start 10/21/16 at 16:45; Stop 10/21/16 at 16:46 ; Status DC Senna/Docusate Sodium (Senna Plus) 2 tab PRN BID PRN PO CONSTIPATION Last administered on 10/22/16t 16:10; Start 10/22/16 at 14:45 Polyethylene Glycol (miraLAX Powder BULK BOTTLE) 238 gm 1X ONCE PO ; Start 08/26 at 15:00; Stop 10/22/16 at 15:01; Status DC Active Scripts Active Reported Fenofibrate (Fenofibrate Nanocrystallized) 145 Mg Tablet 1 Tab PO DAILYWLUN Potassium Chloride 20 Meq Tablet.er 20 Meq PO DAILYWSUP Calcium (Calcium Carbonate) 600 Mg Tablet 600 Mg PO Vytorin 10-80 Mg Tablet (Ezetimibe/Simvastatin) 1 Each Tablet 1 Each PO HS Multi-Vitamin Daily (Multivitamin) 1 Each Tablet 1 Each PO DAILY Vitamin D3 (Cholecalciferol (Vitamin D3)) 5,000 Unit Tablet 1 Tab PO DAILY Pradaxa (Dabigatran Etexilate Mesylate) 150 Mg Capsule 1 Cap PO BID Zoloft (Sertraline Hcl) 50 Mg Tablet 1 Tab PO HS Tamsulosin Hcl 0.4 Mg Cap.er.24h 1 Cap PO HS Losartan Potassium 100 Mg Tablet 100 Mg PO HS Klor-Con M20 (Potassium Chloride) 20 Meq Tab.er.prt 1 Tab PO DAILY Spironolactone 25 Mg Tablet 1 Tab PO DAILY Aspirin 81 Mg Tab.chew 1 Tab PO DAILY Carvedilol 25 Mg Tablet 1 Tab PO BID Vitals/I & O Vital Sign - Last 24 Hours 10/22/16 10/22/16 10/22/16 10/22/16 09:13 09:14 10:14 11:00 Temp 98.3 98.3 Pulse 83 87 Resp 16 16 20 B/P 110/62 123/74 Pulse Ox 93 O2 Delivery Room Air Room Air Room Air 10/22/16 10/22/16 10/22/16 10/22/16 15:00 16:11 19:00 21:25 Temp 97.7 96.8 97.7 96.8 Pulse 94 94 81 81 Resp 20 18 B/P 115/72 115/72 113/72 113/72 Pulse Ox 93 94 O2 Delivery Room Air Room Air 10/22/16 10/23/16 23:28 03:36 Temp 97.5 97.5 97.5 97.5 Pulse 85 98 Resp 18 18 B/P 170/86 142/103 Pulse Ox 98 96 O2 Delivery Room Air Room Air Intake and Output 10/22/16 10/22/16 10/23/16 15:00 23:00 07:00 Intake Total 200 ml 1400 ml Output Total 900 ml Balance 200 ml 500 ml JENNIFER QURESHI MD Oct 23, 2016 08:49
--- NOTE | 2016-10-23 09:16 | PDOC ---
PROGRESS NOTES Subjective Subjective Pt awake and pleasant. States constipation is resolved. Pt eating and drinking well with good output. Objective Objective Pt awake and alert. NAD. VSS. Afebrile. Lung sounds CTA bilat. Resp even and unlabored. Heart with RRR. No murmurs. No pedal edema. Bilat nephrostomy tubes draining urine adequately. 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 -s/p CT-guided biopsy of this mass 10/13/16 -CT neck/chest 10/17/15: revealed cervical LN. -Echo 10/11/16 reveals normal EF 60-65%. -Bone scan 10/17/15: No definite evidence of metastatic disease. Increased uptake in the pelvis compatible and left clavicle compatible with Paget's changes. Intense uptake at L2 compatible with the known fracture at this level. Mild uptake at T6 suggesting an old compression fracture pending. -Portacath and bone marrow bx 10/18/16, -Chemo initiated 10/19/16. Pt tolerated well. 2. Acute renal failure -Creat 5.5 upon admission, 1.4 this am. Baseline 1.4 -Renal US: Left greater than right hydronephrosis with small left renal cyst -Renal team consulting -Coleman placed -Bilat nephrostomy tubes placed. Plans for removal of nephrostomy tubes and stent placement tomorrow. -Uretal stenting attempted on 10/12, unsuccessful d/t prostate bleeding. Prodaxa stopped and reversal agent given. No additional bleeding. Hgb stable -Pt will require nephrostomy tubes/stenting in place till abdominal tumor shrinks. Onc optimistic for rapid response with chemo, possibly 2-3 weeks. 3. Hyperkalemia, now hypokalemia. Resolved -K 5.9 upon admission, 5.0 this am following Kayexalate dosing. 3.7 this am. Prn KCl ordered 4. Hypercalcemia, resolved -Ca 14.4 upon admission, 11.9 following Miacalcin x3. 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 Probable associated spinal stenosis at L2-3 due to retropulsion at the L2 fracture site. Moderate multilevel degenerative change. Distal abdominal aortic aneurysm. -bone scan: Increased uptake in the pelvis compatible and left clavicle compatible with Paget's changes. Intense uptake at L2 compatible with the known fracture at this level. Mild uptake at T6 suggesting an old compression fracture pending. 6. Leukocytosis, trending down -23.6K on .3K this am -Secondary to Neupogen. Hopeful for Dc on Sunday following removal of nephrostomy tubes tomorrow and stent placement. Pt will need SNF for rehabilitation. SW consulting to help with Dc plans. Comment Review of Relevant I have reviewed the following items juan (where applicable) has been applied. Labs Laboratory Tests Test 10/21/16 10:00 10/22/16 05:00 10/22/16 10:25 10/23/16 05:15 White Blood Count 23.6x10^3/uL (4.0-11.0) 15.2x10^3/uL (4.0-11.0) 17.3x10^3/uL (4.0-11.0) Red Blood Count 2.91x10^6/uL (4.30-5.70) 2.58x10^6/uL (4.30-5.70) 2.55x10^6/uL (4.30-5.70) Hemoglobin 8.8g/dL (13.0-17.5) 7.8g/dL (13.0-17.5) 7.7g/dL (13.0-17.5) Hematocrit 26.3% (39.0-53.0) 23.3% (39.0-53.0) 23.6% (39.0-53.0) Mean Corpuscular Volume 90fL (79-100) 90fL (79-100) 93fL (79-100) Mean Corpuscular Hemoglobin 30pg (25-35) 30pg (25-35) 30pg (25-35) Mean Corpuscular Hemoglobin Concent 34g/dL (31-37) 34g/dL (31-37) 33g/dL (31-37) Red Cell Distribution Width 14.9% (11.5-14.5) 14.5% (11.5-14.5) 14.9% (11.5-14.5) Platelet Count 171x10^3/uL (140-400) 126x10^3/uL (140-400) 106x10^3/uL (140-400) Magnesium Level 1.8mg/dL (1.8-2.4) 1.9mg/dL (1.8-2.4) Sodium Level 143mmol/L (136-145) 145mmol/L (136-145) Potassium Level 3.5mmol/L (3.5-5.1) 3.7mmol/L (3.5-5.1) Chloride Level 110mmol/L (98-107) 110mmol/L (98-107) Carbon Dioxide Level 27mmol/L (21-32) 27mmol/L (21-32) Anion Gap 6 (6-14) 8 (6-14) Blood Urea Nitrogen 46mg/dL (8-26) 47mg/dL (8-26) Creatinine 1.6mg/dL (0.7-1.3) 1.4mg/dL (0.7-1.3) Estimated GFR (Cockcroft-Gault) 41.5 48.4 BUN/Creatinine Ratio 29 (6-20) Glucose Level 91mg/dL (70-99) 98mg/dL (70-99) Calcium Level 9.6mg/dL (8.5-10.1) 9.5mg/dL (8.5-10.1) Phosphorus Level 2.8mg/dL (2.6-4.7) 3.0mg/dL (2.6-4.7) Total Bilirubin 0.4mg/dL (0.2-1.0) Aspartate Amino Transf (AST/SGOT) 25U/L (15-37) Alanine Aminotransferase (ALT/SGPT) 15U/L (16-63) Alkaline Phosphatase 57U/L (46-116) Total Protein 4.9g/dL (6.4-8.2) Albumin 2.1g/dL (3.4-5.0) 2.2g/dL (3.4-5.0) Albumin/Globulin Ratio 0.8 (1.0-1.7) Laboratory Tests Test 10/22/16 10:25 10/23/16 05:15 White Blood Count 15.2x10^3/uL (4.0-11.0) 17.3x10^3/uL (4.0-11.0) Red Blood Count 2.58x10^6/uL (4.30-5.70) 2.55x10^6/uL (4.30-5.70) Hemoglobin 7.8g/dL (13.0-17.5) 7.7g/dL (13.0-17.5) Hematocrit 23.3% (39.0-53.0) 23.6% (39.0-53.0) Mean Corpuscular Volume 90fL (79-100) 93fL (79-100) Mean Corpuscular Hemoglobin 30pg (25-35) 30pg (25-35) Mean Corpuscular Hemoglobin Concent 34g/dL (31-37) 33g/dL (31-37) Red Cell Distribution Width 14.5% (11.5-14.5) 14.9% (11.5-14.5) Platelet Count 126x10^3/uL (140-400) 106x10^3/uL (140-400) Sodium Level 143mmol/L (136-145) 145mmol/L (136-145) Potassium Level 3.5mmol/L (3.5-5.1) 3.7mmol/L (3.5-5.1) Chloride Level 110mmol/L (98-107) 110mmol/L (98-107) Carbon Dioxide Level 27mmol/L (21-32) 27mmol/L (21-32) Anion Gap 6 (6-14) 8 (6-14) Blood Urea Nitrogen 46mg/dL (8-26) 47mg/dL (8-26) Creatinine 1.6mg/dL (0.7-1.3) 1.4mg/dL (0.7-1.3) Estimated GFR (Cockcroft-Gault) 41.5 48.4 BUN/Creatinine Ratio 29 (6-20) Glucose Level 91mg/dL (70-99) 98mg/dL (70-99) Calcium Level 9.6mg/dL (8.5-10.1) 9.5mg/dL (8.5-10.1) Phosphorus Level 2.8mg/dL (2.6-4.7) 3.0mg/dL (2.6-4.7) Total Bilirubin 0.4mg/dL (0.2-1.0) Aspartate Amino Transf (AST/SGOT) 25U/L (15-37) Alanine Aminotransferase (ALT/SGPT) 15U/L (16-63) Alkaline Phosphatase 57U/L (46-116) Total Protein 4.9g/dL (6.4-8.2) Albumin 2.1g/dL (3.4-5.0) 2.2g/dL (3.4-5.0) Albumin/Globulin Ratio 0.8 (1.0-1.7) Magnesium Level 1.9mg/dL (1.8-2.4) Medications Current Medications Sodium Chloride 1,000 ml @ 100 mls/hr Q10H IV Last administered on 10/11/16 08 :49; Start 10/10/16 at 11:00; Stop 10/11/16 at 21:27; Status DC Magnesium Sulfate/ Dextrose (Magnesium Sulfate PREMIX 2GM) 50 ml @ 25 mls/hr PRN DAILY PRN IV for Mag < 1.7 on am labs Last administered on 10/14/16 13:04; Start 10/10/16 at 13:30; Stop 10/16/16 at 16:08; Status DC Sodium Polystyrene Sulfonate (Kayexalate) 45 gm 1X ONCE PO Last administered on 10/10/16 15:07; Start 10/10/16 at 13:30; Stop 10/10/16 at 13:44; Status DC Aspirin (Children'S Aspirin) 81 mg DAILY08 PO Last administered on 10/12/16 08: 47; Start 10/10/16 at 14:00; Stop 10/12/16 at 19:37; Status DC Dabigatran (Pradaxa) 150 mg BID PO Last administered on 10/10/16 21:48; Start 10/10/16 at 21:00; Stop 10/11/16 at 08:25; Status DC Potassium Chloride (Klor-Con) 20 meq DAILYWSUP PO ; Start 10/10/16 at 17:00; Stop 10/10/16 at 17:00; Status DC Sertraline HCl (Zoloft) 50 mg HS PO Last administered on 10/22/16 21:25; Start 10/10/16 at 21:00 Spironolactone (Aldactone) 25 mg DAILY PO ; Start 10/10/16 at 14:00; Stop at 14:17; Status DC Tamsulosin HCl (Flomax) 0.4 mg HS PO Last administered on 10/22/16 21:25; Start 10/10/16 at 21:00 Carvedilol (Coreg) 25 mg BIDWMEALS PO Last administered on 10/22/16 16:11; Start 10/10/16 at 17:00 Vitamin D (Vitamin D3) 5,000 unit DAILY PO Last administered on 10/22/16 09:13 ; Start 10/10/16 at 14:00 EZETIMIBE (Zetia) 10 mg DAILY PO ; Start 10/10/16 at 14:00; Stop 10/10/16 at 21: 00; Status Cancel Fenofibrate (Lofibra) 134 mg DAILY PO Last administered on 10/22/16 09:12; Start 10/10/16 at 14:00 Losartan Potassium (Cozaar) 100 mg QHS PO Last administered on 10/22/16 21:25 ; Start 10/10/16 at 21:00 Multivitamins/ Calcium (Thera M Plus) 1 tab DAILY PO Last administered on 09:12; Start 10/10/16 at 14:00 Non-Formulary Medication 20 meq DAILYWSUP PO ; Start 10/10/16 at 17:00; Status UNV Simvastatin (Zocor) 80 mg QHS PO Last administered on 10/22/16 21:26; Start at 21:00 Calcitonin North (Miacalcin) 400 unit BID SQ Last administered on 10/12/16 08: 51; Start 10/10/16 at 21:00; Stop 10/12/16 at 23:52; Status DC Info (Anti-Coagulation Monitoring By Pharmacy) 1 each PRN DAILY PRN MC SEE COMMENTS Last administered on 10/11/16 08:28; Start 10/10/16 at 14:45; Stop 10/13 at 09:44; Status DC Ondansetron HCl (Zofran) 4 mg PRN Q6HRS PRN IV NAUSEA/VOMITING; Start 10/10/16 at 15:30; Status Cancel EZETIMIBE (Zetia) 10 mg HS PO Last administered on 10/22/16 21:25; Start 10/10 at 21:00 Dabigatran (Pradaxa) 75 mg BID PO Last administered on 10/11/16 10:03; Start at 09:00; Stop 10/12/16 at 14:56; Status DC Ondansetron HCl (Zofran) 4 mg PRN Q6HRS PRN IV Nausea; Start 10/12/16 at 09:30; Stop 10/13/16 at 09:29; Status DC Fentanyl Citrate (Fentanyl 2ml Vial) 25 mcg PRN Q5MIN PRN IV MILD PAIN; Start 10/12/16 at 09:30; Stop 10/13/16 at 09:29; Status DC Fentanyl Citrate (Fentanyl 2ml Vial) 50 mcg PRN Q5MIN PRN IV MODERATE PAIN; Start 10/12/16 at 09:30; Stop 10/13/16 at 09:29; Status DC Morphine Sulfate 1 mg 1 mg PRN Q10MIN PRN IV SEVERE PAIN; Start 10/12/16 at 09: 30; Stop 10/13/16 at 09:29; Status DC Lactated Ringer's (Iv Lactated Ringers) 1,000 ml @ 0 mls/hr Q0M IV Last administered on 10/12/16 12:43; Start 10/12/16 at 09:29; Stop 10/12/16 at 21:28; Status DC Lidocaine HCl 2 ml 1X PRN PRN ID IV START; Start 10/12/16 at 09:30; Stop at 09:29; Status DC Hydromorphone HCl (Dilaudid) 0.5 mg PRN Q10MIN PRN IV SEV PAIN,Second choice; Start 10/12/16 at 09:30; Stop 10/13/16 at 09:29; Status DC Prochlorperazine Edisylate 5 mg 5 mg PACU PRN PRN IV NAUSEA; Start 10/12/16 at 09:30; Stop 10/13/16 at 09:29; Status DC Levofloxacin/ Dextrose (LEVAQUIN 250mg PREMIX) 50 ml @ 50 mls/hr Q24H IV Last administered on 10/15/16t 08:39; Start 10/12/16 at 10:00; Stop 10/15/16 at 15:52; Status DC Iohexol 50 ml 50 ml STK-MED ONCE .ROUTE ; Start 10/12/16 at 11:38; Stop 10/12/16 at 11:39; Status DC Propofol (Diprivan) 20 ml @ As Directed STK-MED ONCE IV ; Start 10/12/16 at 12:25 ; Stop 10/12/16 at 12:26; Status DC Lidocaine HCl 100 mg STK-MED ONCE .ROUTE ; Start 10/12/16 at 12:25; Stop 10/12/16 at 12:26; Status DC Dexamethasone Sodium Phosphate (Decadron) 20 mg STK-MED ONCE .ROUTE ; Start 10/12 at 12:25; Stop 10/12/16 at 12:26; Status DC Ondansetron HCl (Zofran) 4 mg STK-MED ONCE .ROUTE ; Start 10/12/16 at 12:25; Stop 10/12/16 at 12:26; Status DC Fentanyl Citrate (Fentanyl 2ml Vial) 100 mcg STK-MED ONCE .ROUTE ; Start at 12:25; Stop 10/12/16 at 12:26; Status DC Phenylephrine HCl 1 mg STK-MED ONCE IV ; Start 10/12/16 at 13:59; Stop 10/12/16 at 14:00; Status DC Apixaban (Eliquis) 2.5 mg BID PO ; Start 10/12/16 at 21:00; Stop 10/12/16 at 21:00 ; Status DC Idarucizumab (Praxbind) 5 gm 1X ONCE IV Last administered on 10/12/16 16:48; Start 10/12/16 at 16:30; Stop 10/12/16 at 16:31; Status DC Heparin Sodium (Porcine) 10,000 unit STK-MED ONCE .ROUTE ; Start 10/12/16 at 15: 40; Stop 10/12/16 at 15:41; Status DC Lidocaine HCl 20 ml 20 ml STK-MED ONCE .ROUTE ; Start 10/12/16 at 15:40; Stop 10/12/16 at 15:41; Status DC Heparin Sodium/ Sodium Chloride 500 ml @ As Directed STK-MED ONCE .ROUTE ; Start 10/12/16 at 15:40; Stop 10/12/16 at 15:41; Status DC Lidocaine/ Epinephrine (Xylocaine 1%-Epi 1:100,000) 20 ml STK-MED ONCE .ROUTE ; Start 10/12/16 at 15:43; Stop 10/12/16 at 15:44; Status DC Heparin Sodium (Porcine) 2,400 unit 1X ONCE INT CAT Last administered on 16:27; Start 10/12/16 at 16:30; Stop 10/12/16 at 16:31; Status DC Heparin Sodium/ Sodium Chloride 6 unit 1X ONCE IV Last administered on 16:27; Start 10/12/16 at 16:30; Stop 10/12/16 at 16:31; Status DC Lidocaine/ Epinephrine 2 ml 2 ml 1X ONCE IJ Last administered on 10/12/16 16: 28; Start 10/12/16 at 16:30; Stop 10/12/16 at 16:31; Status DC Sodium Chloride (Iv Sodium Chloride 0.9% 1000ml Bag) 1,000 ml @ 1,000 mls/hr Q1H PRN IV hypotension; Start 10/12/16 at 17:48; Stop 10/12/16 at 23:47; Status DC Diphenhydramine HCl (Benadryl) 25 mg 1X PRN PRN IV ITCHING; Start 10/12/16 at 18 :00; Stop 10/13/16 at 13:06; Status DC Diphenhydramine HCl (Benadryl) 25 mg 1X PRN PRN IV ITCHING; Start 10/12/16 at 18 :00; Stop 10/13/16 at 13:06; Status DC Sodium Chloride (Normal Saline Flush) 10 ml 1X PRN PRN IV AP catheter pack; Start 10/12/16 at 18:00; Stop 10/13/16 at 13:06; Status DC Sodium Chloride 10 ml 10 ml 1X PRN PRN IV LOAN AND CREDIT MANAGER catheter pack; Start 10/12/16 at 18 :00; Stop 10/13/16 at 13:06; Status DC Sodium Chloride (Iv Sodium Chloride 0.9% 1000ml Bag) 1,000 ml @ 400 mls/hr Q2H30M PRN IV PATENCY; Start 10/12/16 at 17:48; Stop 10/13/16 at 05:47; Status DC Sodium Chloride (Normal Saline Flush) 10 ml 1X PRN PRN IV AP catheter pack; Start 10/13/16 at 11:00; Stop 10/13/16 at 18:00; Status DC Sodium Chloride (Normal Saline Flush) 10 ml 1X PRN PRN IV LOAN AND CREDIT MANAGER catheter pack; Start 10/13/16 at 11:00; Stop 10/13/16 at 18:00; Status DC Info (PHARMACY MONITORING -- do not chart) 1 each PRN DAILY PRN MC SEE COMMENTS ; Start 10/13/16 at 11:00 Info (PHARMACY MONITORING -- do not chart) 1 each PRN DAILY PRN MC SEE COMMENTS ; Start 10/13/16 at 11:00; Stop 10/13/16 at 11:05; Status DC Lidocaine/Sodium Bicarbonate 20 ml 20 ml 1X ONCE IJ Last administered on 16:23; Start 10/13/16 at 13:15; Stop 10/13/16 at 13:16; Status DC Levofloxacin/ Dextrose (LEVAQUIN 250mg PREMIX) 50 ml @ 100 mls/hr 1X ONCE IV Last administered on 10/13/16 16:25; Start 10/13/16 at 13:30; Stop 10/13/16 at 13: 59; Status DC Midazolam HCl (Versed) 2 mg STK-MED ONCE .ROUTE ; Start 10/13/16 at 14:03; Stop 10/13/16 at 14:04; Status DC Fentanyl Citrate (Fentanyl 2ml Vial) 100 mcg STK-MED ONCE .ROUTE ; Start at 14:03; Stop 10/13/16 at 14:04; Status DC Gelatin (Gelfoam Size 12-7mm) 1 each STK-MED ONCE .ROUTE ; Start 10/13/16 at 14: 44; Stop 10/13/16 at 14:45; Status DC Midazolam HCl (Versed) 2 mg 1X ONCE IV Last administered on 10/13/16 16:25; Start 10/13/16 at 15:00; Stop 10/13/16 at 15:01; Status DC Fentanyl Citrate (Fentanyl 2ml Vial) 100 mcg 1X ONCE IV Last administered on 16:26; Start 10/13/16 at 15:00; Stop 10/13/16 at 15:01; Status DC Fentanyl Citrate (Fentanyl 2ml Vial) 50 mcg PRN Q2HR PRN IV SEVERE PAIN Last administered on 10/14/16 20:58; Start 10/14/16 at 01:30 Levofloxacin (Levaquin) 250 mg DAILY06 PO Last administered on 10/23/16 06:07 ; Start 10/16/16 at 06:00 Acetaminophen/ Hydrocodone Bitart 1 tab 1 tab PRN Q4HRS PRN PO PAIN Last administered on 10/22/16 09:14; Start 10/15/16 at 17:45 Magnesium Sulfate/ Dextrose 50 ml @ 25 mls/hr PRN DAILY PRN IV for Mag < 1.7 on am labs Last administered on 10/17/16 10:26; Start 10/16/16 at 14:45 Potassium Chloride 50 ml @ 50 mls/hr PRN Q6HRS PRN IV For K < 3.7; Start at 14:45 Potassium Chloride (KCl Premix 20meq) 50 ml @ 50 mls/hr PRN Q2HR PRN IV total of 40mEq for K < 3.5; Start 10/16/16 at 14:45 Calcitonin North 400 unit 400 unit BID SQ Last administered on 10/19/16 13:50 ; Start 10/16/16 at 21:00; Stop 10/19/16 at 09:01; Status DC Potassium Chloride 40 meq/ Sodium Chloride 1,020 ml @ 100 mls/hr [id number] IV Last administered on 10/17/16 22:37; Start 10/17/16 at 09:15; Stop 10/18/16 at 05: 38; Status DC Sodium Chloride (Iv Sodium Chloride 0.9% 1000ml Bag) 1,000 ml @ 100 mls/hr Q10H IV Last administered on 10/23/16 06:10; Start 10/18/16 at 06:00 Allopurinol (Zyloprim) 100 mg DAILY PO Last administered on 10/22/16 09:14; Start 10/17/16 at 10:30 Lidocaine/Sodium Bicarbonate (Buffered Lidocaine 1%) 20 ml 1X ONCE IJ Last administered on 10/18/16 11:54; Start 10/18/16 at 10:30; Stop 10/18/16 at 10:31; Status DC Midazolam HCl (Versed) 5 mg STK-MED ONCE .ROUTE ; Start 10/18/16 at 10:26; Stop 10/18/16 at 10:27; Status DC Fentanyl Citrate (Fentanyl 5ml Vial) 250 mcg STK-MED ONCE .ROUTE ; Start at 10:26; Stop 10/18/16 at 10:27; Status DC Midazolam HCl (Versed) 5 mg 1X ONCE IV Last administered on 10/18/16 11:55; Start 10/18/16 at 10:30; Stop 10/18/16 at 10:35; Status DC Fentanyl Citrate (Fentanyl 5ml Vial) 250 mcg 1X ONCE IV Last administered on 11:55; Start 10/18/16 at 10:30; Stop 10/18/16 at 10:35; Status DC Heparin Sodium (Porcine) (Hep Lock Adult) 500 unit STK-MED ONCE IV ; Start at 11:02; Stop 10/18/16 at 11:03; Status DC Lidocaine/ Epinephrine 20 ml 20 ml STK-MED ONCE .ROUTE ; Start 10/18/16 at 11:02 ; Stop 10/18/16 at 11:03; Status DC Heparin Sodium/ Sodium Chloride 500 ml @ As Directed STK-MED ONCE .ROUTE ; Start 10/18/16 at 11:02; Stop 10/18/16 at 11:03; Status DC Vancomycin HCl 250 ml @ As Directed STK-MED ONCE .ROUTE ; Start 10/18/16 at 11: 02; Stop 10/18/16 at 11:03; Status DC Cefazolin Sodium (Ancef 1gm Ivpb For Omni) 50 ml @ As Directed STK-MED ONCE IV ; Start 10/18/16 at 11:18; Stop 10/18/16 at 11:19; Status DC Heparin Sodium/ Sodium Chloride 1000 unit 1,000 unit 1X ONCE IART Last administered on 10/18/16 11:53; Start 10/18/16 at 11:30; Stop 10/18/16 at 11:35; Status DC Cefazolin Sodium 50 ml @ 100 mls/hr 1X ONCE IV Last administered on 10/18/16 11:59; Start 10/18/16 at 11:30; Stop 10/18/16 at 11:59; Status DC Vancomycin HCl 250 ml @ 250 mls/hr 1X ONCE IRR Last administered on 10/18/16 11:54; Start 10/18/16 at 11:30; Stop 10/18/16 at 12:29; Status DC Heparin Sodium (Porcine) (Hep Lock Adult) 500 unit 1X ONCE IV Last administered on 10/18/16 11:59; Start 10/18/16 at 11:30; Stop 10/18/16 at 11:35; Status DC Lidocaine/ Epinephrine 20 ml 20 ml 1X ONCE IJ Last administered on 10/18/16 11 :56; Start 10/18/16 at 11:30; Stop 10/18/16 at 11:35; Status DC Rituximab 775 mg/ Sodium Chloride 852.5 ml @ 213.125 mls/hr 1X ONCE IV Last administered on 10/19/16 12:00; Start 10/19/16 at 11:30; Stop 10/19/16 at 15:29; Status DC Cyclophosphamide 1500 mg/Sodium Chloride 250 ml @ 500 mls/hr ONCE ONCE IV Last administered on 10/19/16 10:13; Start 10/19/16 at 09:00; Stop 10/19/16 at 09: 29; Status DC Doxorubicin HCl 100 mg/ Miscellaneous 50 ml @ 600 mls/hr ONCE ONCE IV Last administered on 10/19/16 11:11; Start 10/19/16 at 09:00; Stop 10/19/16 at 09:04; Status DC Vincristine Sulfate/Sodium Chloride (Oncovin/Iv Sodium Chloride 0.9% 50ml) 50 ml @ 275 mls/hr ONCE ONCE IV Last administered on 10/19/16 11:14; Start at 09:00; Stop 10/19/16 at 09:10; Status DC Tbo-Filgrastim (Granix) 480 mcg QHS SQ Last administered on 10/22/16 21:47; Start 10/20/16 at 21:00; Stop 10/29/16 at 23:00 Acetaminophen (Tylenol) 650 mg ONCE ONCE PO Last administered on 10/19/16 11: 16; Start 10/19/16 at 11:30; Stop 10/19/16 at 11:31; Status DC Diphenhydramine HCl 50 mg 50 mg ONCE ONCE PO Last administered on 10/19/16 11: 16; Start 10/19/16 at 11:00; Stop 10/19/16 at 11:01; Status DC Ondansetron HCl/ Sodium Chloride (Zofran/Iv Sodium Chloride 0.9% 50ml) 56 ml @ 112 mls/hr ONCE ONCE IV Last administered on 10/19/16 09:06; Start 10/19/16 at 08:30; Stop 10/19/16 at 08:59; Status DC Ondansetron HCl (Zofran) 4 mg PRN Q4HRS PRN IV NAUSEA/VOMITING; Start 10/18/16 at 14:45 Prednisone (Prednisone) 100 mg DAILY PO Last administered on 10/22/16 09:13; Start 10/19/16 at 09:00; Stop 10/23/16 at 09:01; Status DC Dexamethasone 20 mg 20 mg 1X ONCE PO Last administered on 10/19/16 09:07; Start 10/19/16 at 08:30; Stop 10/19/16 at 08:31; Status DC Magnesium Sulfate/ Dextrose 50 ml @ 25 mls/hr 1X ONCE IV Last administered on 10/19/16 06:05; Start 10/19/16 at 05:45; Stop 10/19/16 at 07:44; Status DC Potassium Chloride (KCl Premix 20meq) 50 ml @ 25 mls/hr Q2HR IV Last administered on 10/20/16 18:15; Start 10/20/16 at 16:00; Stop 10/20/16 at 19:59 ; Status DC Magnesium Hydroxide (Milk Of Magnesia) 2,400 mg PRN DAILY PRN PO CONSTIPATION Last administered on 10/22/16 09:12; Start 10/21/16 at 16:30 Sodium Biphosphate/ Sodium Phosphate (Fleet Adult) 133 ml 1X ONCE [place] Last administered on 10/21/16 18:03; Start 10/21/16 at 16:45; Stop 10/21/16 at 16:46 ; Status DC Senna/Docusate Sodium (Senna Plus) 2 tab PRN BID PRN PO CONSTIPATION Last administered on 10/22/16 16:10; Start 10/22/16 at 14:45 Polyethylene Glycol (miraLAX Powder BULK BOTTLE) 238 gm 1X ONCE PO ; Start 08/26 at 15:00; Stop 10/22/16 at 15:01; Status DC Active Scripts Active Reported Fenofibrate (Fenofibrate Nanocrystallized) 145 Mg Tablet 1 Tab PO DAILYWLUN Potassium Chloride 20 Meq Tablet.er 20 Meq PO DAILYWSUP Calcium (Calcium Carbonate) 600 Mg Tablet 600 Mg PO Vytorin 10-80 Mg Tablet (Ezetimibe/Simvastatin) 1 Each Tablet 1 Each PO HS Multi-Vitamin Daily (Multivitamin) 1 Each Tablet 1 Each PO DAILY Vitamin D3 (Cholecalciferol (Vitamin D3)) 5,000 Unit Tablet 1 Tab PO DAILY Pradaxa (Dabigatran Etexilate Mesylate) 150 Mg Capsule 1 Cap PO BID Zoloft (Sertraline Hcl) 50 Mg Tablet 1 Tab PO HS Tamsulosin Hcl 0.4 Mg Cap.er.24h 1 Cap PO HS Losartan Potassium 100 Mg Tablet 100 Mg PO HS Klor-Con M20 (Potassium Chloride) 20 Meq Tab.er.prt 1 Tab PO DAILY Spironolactone 25 Mg Tablet 1 Tab PO DAILY Aspirin 81 Mg Tab.chew 1 Tab PO DAILY Carvedilol 25 Mg Tablet 1 Tab PO BID Vitals/I & O Vital Sign - Last 24 Hours 10/22/16 10/22/16 10/22/16 10/22/16 09:13 09:14 10:14 11:00 Temp 98.3 98.3 Pulse 83 87 Resp 16 16 20 B/P 110/62 123/74 Pulse Ox 93 O2 Delivery Room Air Room Air Room Air 10/22/16 10/22/16 10/22/16 10/22/16 15:00 16:11 19:00 21:25 Temp 97.7 96.8 97.7 96.8 Pulse 94 94 81 81 Resp 20 18 B/P 115/72 115/72 113/72 113/72 Pulse Ox 93 94 O2 Delivery Room Air Room Air 10/22/16 10/23/16 10/23/16 23:28 03:36 07:00 Temp 97.5 97.5 97.5 97.5 97.5 97.5 Pulse 85 98 91 Resp 18 18 16 B/P 170/86 142/103 138/90 Pulse Ox 98 96 95 O2 Delivery Room Air Room Air Room Air Intake and Output 10/22/16 10/22/16 10/23/16 15:00 23:00 07:00 Intake Total 200 ml 1400 ml Output Total 900 ml Balance 200 ml 500 ml AYALA LYMAN MD Oct 23, 2016 09:16
[2016-10-23 11:00] VITALS: BP 150/81
--- NOTE | 2016-10-23 11:21 | PDOC ---
SUBJECTIVE ROS YURI/ HyperCalcemia Doign and feeling OK overall CVS: no Orthopnea, no CP RESP: no SOB, no ZEPEDA GI: min Nausea, no Vomiting : no Dysuria, no Urgency OBJECTIVE Vital Signs Vital Signs Date Time Temp Pulse Resp B/P Pulse Ox O2 Delivery O2 Flow Rate FiO2 10/23/16 07:00 97.5 91 16 138/90 95 Room Air 97.5 I & 0 Intake and Output 10/23/16 07:00 Intake Total 1600 ml Output Total 900 ml Balance 700 ml Intake Oral 400 ml IV Total 1200 ml Output Urine Total 900 ml # Voids 1 # Bowel Movements 3 PHYSICAL EXAM Physical Exam General Appearance: Awake Alert Oriented x 3 In no Distress Eyes: VIsion Unchanged Conjunctiva Normal EN: No EN Drainage Mucous Memb. moist Neck: no JVD no JVP Supple no Thyromegaly CVS: S1 S2 soft Murmur No Gallop No Rub no Edema Resp: no Rales no Rhonchi no Acc. Muscle use GI: BS +ve NO Bruit Non Tender Non Distended : no CVA tenderness; (PCNs in place) no Suprapubic Tenderness ASSESSMENT/PLAN ARF: Creat better after PCNs. watch Trend with PCNs in place; . PCNs with good UO; Lt > Rt though; Internalize stents when OK owith IR and URO. ^Krishna - suspect due to Underlying Lymphoma; now resolved Hypoalbuminemia - suspect due to Poor PO intake - encourage PO intake of fluids Anemia: (? part of Lymphoma) defer to Dr Ross/ Henry who is now on the case HTN: Current BP meds reviewed. See orders for changes. Lymphoma - Chemo per Dr Ross Will sign off - Pl call [facility] Qs COMMENT/RELEVANT DATA Meds Current Medications Medications (Trade) Dose Ordered Sig/Selena Start Time Stop Time Status Last Admin Dose Admin Acetaminophen (Tylenol) 650 mg ONCE ONCE 10/19/16 11:30 10/19/16 11:31 DC 10/19/16 11:16 650 MG Acetaminophen/ Hydrocodone Bitart 1 tab 1 tab PRN Q4HRS PRN 10/15/16 17:45 10/22/16 09:14 1 TAB Allopurinol (Zyloprim) 100 mg DAILY 10/17/16 10:30 10/22/16 09:14 100 MG Apixaban (Eliquis) 2.5 mg BID 10/12/16 21:00 2/2/17 21:00 DC Aspirin (Children'S Aspirin) 81 mg DAILY08 10/10/16 14:00 10/12/16 19:37 DC 10/12/16 08:47 81 MG Calcitonin Everett (Miacalcin) 400 unit BID 10/10/16 21:00 10/12/16 23:52 DC 10/12/16 08:51 400 UNIT Calcitonin Everett 400 unit 400 unit BID 10/16/16 21:00 10/19/16 09:01 DC 10/19/16 13:50 400 UNIT Carvedilol (Coreg) 25 mg BIDWMEALS 10/10/16 17:00 10/22/16 16:11 25 MG Cefazolin Sodium 50 ml @ 100 mls/hr 1X ONCE 10/18/16 11:30 10/18/16 11:59 DC 10/18/16 11:59 100 MLS/HR Cefazolin Sodium (Ancef 1gm Ivpb For Omni) 50 ml @ As Directed STK-MED ONCE 10/18/16 11:18 10/18/16 11:19 DC Cyclophosphamide 1500 mg/Sodium Chloride 250 ml @ 500 mls/hr ONCE ONCE 10/19/16 09:00 10/19/16 09:29 DC 10/19/16 10:13 500 MLS/HR Dabigatran (Pradaxa) 75 mg BID 10/11/16 09:00 10/12/16 14:56 DC 10/11/16 10:03 75 MG Dexamethasone Sodium Phosphate (Decadron) 20 mg STK-MED ONCE 10/12/16 12:25 10/12/16 12:26 DC Dexamethasone 20 mg 20 mg 1X ONCE 10/19/16 08:30 10/19/16 08:31 DC 10/19/16 09:07 20 MG Diphenhydramine HCl (Benadryl) 25 mg 1X PRN PRN 10/12/16 18:00 10/13/16 13:06 DC Diphenhydramine HCl 50 mg 50 mg ONCE ONCE 10/19/16 11:00 10/19/16 11:01 DC 10/19/16 11:16 50 MG Doxorubicin HCl 100 mg/ Miscellaneous 50 ml @ 600 mls/hr ONCE ONCE 10/19/16 09:00 10/19/16 09:04 DC 10/19/16 11:11 600 MLS/HR EZETIMIBE (Zetia) 10 mg HS 10/10/16 21:00 10/22/16 21:25 10 MG Fenofibrate (Lofibra) 134 mg DAILY 10/10/16 14:00 10/22/16 09:12 134 MG Fentanyl Citrate (Fentanyl 2ml Vial) 50 mcg PRN Q2HR PRN 10/14/16 01:30 10/14/16 20:58 50 MCG Fentanyl Citrate (Fentanyl 5ml Vial) 250 mcg 1X ONCE 10/18/16 10:30 10/18/16 10:35 DC 10/18/16 11:55 250 MCG Gelatin (Gelfoam Size 12-7mm) 1 each STK-MED ONCE 10/13/16 14:44 10/13/16 14:45 DC Heparin Sodium (Porcine) (Hep Lock Adult) 500 unit 1X ONCE 10/18/16 11:30 10/18/16 11:35 DC 10/18/16 11:59 500 UNIT Heparin Sodium (Porcine) 500 unit 500 unit STK-MED ONCE 10/18/16 11:02 10/18/16 11:03 DC Heparin Sodium/ Sodium Chloride 1000 unit 1,000 unit 1X ONCE 10/18/16 11:30 10/18/16 11:35 DC 10/18/16 11:53 1,000 UNIT Hydromorphone HCl (Dilaudid) 0.5 mg PRN Q10MIN PRN 10/12/16 09:30 10/13/16 09:29 DC Idarucizumab (Praxbind) 5 gm 1X ONCE 10/12/16 16:30 10/12/16 16:31 DC 10/12/16 16:48 5 GM Info (Anti-Coagulation Monitoring By Pharmacy) 1 each PRN DAILY PRN 10/10/16 14:45 10/13/16 09:44 DC 10/11/16 08:28 1 EACH Info (PHARMACY MONITORING -- do not chart) 1 each PRN DAILY PRN 10/13/16 11:00 10/13/16 11:05 DC Iohexol 50 ml 50 ml STK-MED ONCE 10/12/16 11:38 10/12/16 11:39 DC Lactated Ringer's (Iv Lactated Ringers) 1,000 ml @ 0 mls/hr Q0M 2/2/17 09:29 10/12/16 21:28 DC 10/12/16 12:43 100 MLS/HR Levofloxacin (Levaquin) 250 mg DAILY06 10/16/16 06:00 10/23/16 06:07 250 MG Levofloxacin/ Dextrose (LEVAQUIN 250mg PREMIX) 50 ml @ 100 mls/hr 1X ONCE 10/13/16 13:30 10/13/16 13:59 DC 10/13/16 16:25 100 MLS/HR Lidocaine HCl 20 ml STK-MED ONCE 10/12/16 15:40 10/12/16 15:41 DC Lidocaine/ Epinephrine (Xylocaine 1%-Epi 1:100,000) 2 ml 1X ONCE 10/12/16 16:30 10/12/16 16:31 DC 10/12/16 16:28 2 ML Lidocaine/ Epinephrine 20 ml 20 ml 1X ONCE 10/18/16 11:30 10/18/16 11:35 DC 10/18/16 11:56 12 ML Lidocaine/Sodium Bicarbonate (Buffered Lidocaine 1%) 20 ml 1X ONCE 10/18/16 10:30 10/18/16 10:31 DC 10/18/16 11:54 6 ML Lidocaine/Sodium Bicarbonate 20 ml 20 ml 1X ONCE 10/13/16 13:15 10/13/16 13:16 DC 10/13/16 16:23 28 ML Losartan Potassium (Cozaar) 100 mg QHS 10/10/16 21:00 10/22/16 21:25 100 MG Magnesium Hydroxide (Milk Of Magnesia) 2,400 mg PRN DAILY PRN 10/21/16 16:30 10/22/16 09:12 2,400 MG Magnesium Sulfate/ Dextrose 50 ml @ 25 mls/hr 1X ONCE 10/19/16 05:45 10/19/16 07:44 DC 10/19/16 06:05 25 MLS/HR Magnesium Sulfate/ Dextrose (Magnesium Sulfate PREMIX 2GM) 50 ml @ 25 mls/hr PRN DAILY PRN 10/16/16 14:45 10/17/16 10:26 25 MLS/HR Midazolam HCl (Versed) 5 mg 1X ONCE 10/18/16 10:30 10/18/16 10:35 DC 10/18/16 11:55 2 MG Morphine Sulfate 1 mg 1 mg PRN Q10MIN PRN 10/12/16 09:30 10/13/16 09:29 DC Multivitamins/ Calcium (Thera M Plus) 1 tab DAILY 10/10/16 14:00 10/22/16 09:12 1 TAB Non-Formulary Medication 20 meq DAILYWSUP 10/10/16 17:00 UNV Ondansetron HCl (Zofran) 4 mg PRN Q4HRS PRN 10/18/16 14:45 Ondansetron HCl/ Sodium Chloride (Zofran/Iv Sodium Chloride 0.9% 50ml) 56 ml @ 112 mls/hr ONCE ONCE 10/19/16 08:30 10/19/16 08:59 DC 10/19/16 09:06 112 MLS/HR Phenylephrine HCl 1 mg STK-MED ONCE 10/12/16 13:59 10/12/16 14:00 DC Polyethylene Glycol (miraLAX Powder BULK BOTTLE) 238 gm 1X ONCE 10/22/16 15:00 10/22/16 15:01 DC Potassium Chloride 40 meq/ Sodium Chloride 1,020 ml @ 100 mls/hr [id number] 10/17/16 09:15 10/18/16 05:38 DC 10/17/16 22:37 100 MLS/HR Potassium Chloride (KCl Premix 20meq) 50 ml @ 25 mls/hr Q2HR 10/20/16 16:00 10/20/16 19:59 DC 10/20/16 18:15 25 MLS/HR Potassium Chloride (Klor-Con) 20 meq DAILYWSUP 10/10/16 17:00 10/10/16 17:00 DC Prednisone (Prednisone) 100 mg DAILY 10/19/16 09:00 10/23/16 09:01 DC 10/22/16 09:13 100 MG Prochlorperazine Edisylate (Compazine) 5 mg PACU PRN PRN 10/12/16 09:30 10/13/16 09:29 DC Propofol (Diprivan) 20 ml @ As Directed STK-MED ONCE 10/12/16 12:25 10/12/16 12:26 DC Rituximab 775 mg/ Sodium Chloride 852.5 ml @ 213.125 mls/hr 1X ONCE 10/19/16 11:30 10/19/16 15:29 DC 10/19/16 12:00 213.125 MLS/HR Senna/Docusate Sodium (Senna Plus) 2 tab PRN BID PRN 10/22/16 14:45 10/22/16 16:10 2 TAB Sertraline HCl (Zoloft) 50 mg HS 10/10/16 21:00 10/22/16 21:25 50 MG Simvastatin (Zocor) 80 mg QHS 10/10/16 21:00 10/22/16 21:26 80 MG Sodium Biphosphate/ Sodium Phosphate (Fleet Adult) 133 ml 1X ONCE 10/21/16 16:45 10/21/16 16:46 DC 10/21/16 18:03 133 ML Sodium Polystyrene Sulfonate (Kayexalate) 45 gm 1X ONCE 10/10/16 13:30 10/10/16 13:44 DC 10/10/16 15:07 45 GM Sodium Chloride (Iv Sodium Chloride 0.9% 1000ml Bag) 1,000 ml @ 100 mls/hr Q10H 10/18/16 06:00 10/23/16 06:10 100 MLS/HR Sodium Chloride (Normal Saline Flush) 10 ml 1X PRN PRN 10/13/16 11:00 10/13/16 18:00 DC Spironolactone (Aldactone) 25 mg DAILY 10/10/16 14:00 10/10/16 14:17 DC Tamsulosin HCl (Flomax) 0.4 mg HS 10/10/16 21:00 10/22/16 21:25 0.4 MG Tbo-Filgrastim (Granix) 480 mcg QHS 10/20/16 21:00 10/29/16 23:00 10/22/16 21:47 480 MCG Vancomycin HCl 250 ml @ 250 mls/hr 1X ONCE 10/18/16 11:30 10/18/16 12:29 DC 10/18/16 11:54 250 MLS/HR Vincristine Sulfate/Sodium Chloride (Oncovin/Iv Sodium Chloride 0.9% 50ml) 50 ml @ 275 mls/hr ONCE ONCE 10/19/16 09:00 10/19/16 09:10 DC 10/19/16 11:14 275 MLS/HR Vitamin D (Vitamin D3) 5,000 unit DAILY 10/10/16 14:00 10/22/16 09:13 5,000 UNIT Lab Laboratory Tests Test 10/23/16 05:15 White Blood Count 17.3x10^3/uL (4.0-11.0) Red Blood Count 2.55x10^6/uL (4.30-5.70) Hemoglobin 7.7g/dL (13.0-17.5) Hematocrit 23.6% (39.0-53.0) Mean Corpuscular Volume 93fL (79-100) Mean Corpuscular Hemoglobin 30pg (25-35) Mean Corpuscular Hemoglobin Concent 33g/dL (31-37) Red Cell Distribution Width 14.9% (11.5-14.5) Platelet Count 106x10^3/uL (140-400) Sodium Level 145mmol/L (136-145) Potassium Level 3.7mmol/L (3.5-5.1) Chloride Level 110mmol/L (98-107) Carbon Dioxide Level 27mmol/L (21-32) Anion Gap 8 (6-14) Blood Urea Nitrogen 47mg/dL (8-26) Creatinine 1.4mg/dL (0.7-1.3) Estimated GFR (Cockcroft-Gault) 48.4 Glucose Level 98mg/dL (70-99) Calcium Level 9.5mg/dL (8.5-10.1) Phosphorus Level 3.0mg/dL (2.6-4.7) Magnesium Level 1.9mg/dL (1.8-2.4) Albumin 2.2g/dL (3.4-5.0) DIAZ GUNN MD Oct 23, 2016 11:21
[2016-10-23] MEDS: PREDNISONE 20 MG TABLET PO SCH (11:43)
[2016-10-23] MEDS: MULTIVITAMIN with MINERAL TABLET. PO SCH (11:43)
[2016-10-23] MEDS: CHOLECALCIFEROL (VITAMIN D3) 5,000 UNIT CAPSULE PO SCH (11:43)
[2016-10-23] MEDS: FENOFIBRATE,MICRONIZED 134 MG CAPSULE PO SCH (11:43)
[2016-10-23] MEDS: CARVEDILOL 12.5 MG TABLET PO SCH ×2 (11:43→17:32)
[2016-10-23] MEDS: ALLOPURINOL 100 MG TABLET. PO SCH (11:43)
--- NOTE | 2016-10-23 13:33 | PDOC ---
Provider Note Provider Note IR Note: Discussed case with Dr Griggs, Dr Chung, and Dr Ross. All in agreement with attempted conversion of bilateral PCN tubes to bilateral internal ureteral stents. Tentatively scheduled for tomorrow in IR with anesthesia. SVEN CANALES MD Oct 23, 2016 13:33
[2016-10-23 15:00] VITALS: BP 142/83
[2016-10-23] MEDS: HYDROCODONE/APAP 5/325MG TABLET. PO PRN (17:33)
[2016-10-23 19:00] VITALS: BP 157/101
[2016-10-23] MEDS: TBO-FILGRASTIM 480 MCG/0.8 ML SYRINGE. SQ SCH (20:44)
[2016-10-23] MEDS: LOSARTAN POTASSIUM 50 MG TABLET. PO SCH (20:45)
[2016-10-23] MEDS: SERTRALINE 50 MG TABLET. PO SCH (20:45)
[2016-10-23] MEDS: TAMSULOSIN 0.4 MG CAP.ER.24H. PO SCH (20:45)
[2016-10-23] MEDS: SIMVASTATIN 40 MG TABLET. PO SCH (20:45)
[2016-10-23] MEDS: EZETIMIBE 10 MG TABLET PO SCH (20:45)
[2016-10-23 23:00] VITALS: BP 128/91
[2016-10-24] VITALS (13 sets, daily range): BP systolic 112–148; BP diastolic 79–104
[2016-10-24] MEDS: IV NORMAL SALINE 1000ML BAG 1,000 ML IV SCH ×3 (03:21→20:56)
[2016-10-24] MEDS: LEVOFLOXACIN 250 MG TABLET. PO SCH (05:37)
[2016-10-24 06:31] LABS: ALBUMIN 2.3 g/dL (3.4-5.0); CALCIUM 9.2 mg/dL (8.5-10.1); CREATININE 1.4 mg/dL (0.7-1.3); GFR 48.4; PHOSPHORUS 3.1 mg/dL (2.6-4.7); POTASSIUM 3.6 mmol/L (3.5-5.1)
[2016-10-24 06:54] LABS: HEMATOCRIT 25.3 % (39.0-53.0); HEMOGLOBIN 8.2 g/dL (13.0-17.5); RED BLOOD COUNT 2.73 x10^6/uL (4.30-5.70); RED CELL DISTRIBUTION WIDTH 14.6 % (11.5-14.5); WHITE BLOOD COUNT 18.9 x10^3/uL (4.0-11.0)
[2016-10-24] MEDS ORDERED: ONDANSETRON PF 4 MG/2 ML VIAL. IV PRN (07:00)
[2016-10-24] MEDS ORDERED: PROCHLORPERAZINE 10 MG/2 ML VIAL. IV PRN (07:00)
[2016-10-24] MEDS ORDERED: MORPHINE SULFATE 2 MG/ML DISP.SYRIN. IV PRN (07:00)
[2016-10-24] MEDS ORDERED: FENTANYL PF 100 MCG/2 ML VIAL. IV PRN ×2 (07:00)
[2016-10-24] MEDS ORDERED: LIDOCAINE 1% 1 ML SYRINGE. ID PRN (07:00)
[2016-10-24] MEDS ORDERED: HYDROMORPHONE 2 MG/ML VIAL. IV PRN (07:00)
[2016-10-24] MEDS ORDERED: IV RINGERS,LACTATED 1000ML 1,000 ML IV SCH (07:00)
[2016-10-24] MEDS: ALLOPURINOL 100 MG TABLET. PO SCH (09:00)
[2016-10-24] MEDS: FENOFIBRATE,MICRONIZED 134 MG CAPSULE PO SCH (09:00)
[2016-10-24] MEDS: MULTIVITAMIN with MINERAL TABLET. PO SCH (09:00)
[2016-10-24] MEDS: CHOLECALCIFEROL (VITAMIN D3) 5,000 UNIT CAPSULE PO SCH (09:00)
[2016-10-24] MEDS: CARVEDILOL 12.5 MG TABLET PO SCH ×2 (09:14→16:29)
--- NOTE | 2016-10-24 09:22 | PDOC ---
PROGRESS NOTES Subjective Subjective c/c - f/u of Diffuse large B cell lymphoma (NHL) Objective Objective Vital Signs Date Time Temp Pulse Resp B/P Pulse Ox O2 Delivery O2 Flow Rate FiO2 10/24/16 09:14 100 148/103 10/24/16 07:00 97.9 18 95 Room Air 97.9 10/19/16 16:00 2.0 Intake and Output 10/24/16 07:00 Output Total 1550 ml Balance -1550 ml Output Urine Total 250 ml Drainage Total 1300 ml # Bowel Movements 2 Physical Exam Heart: Normal S1, Normal S2 General: Alert, Oriented X3 Neuro: Normal speech Psych/Mental Status: Mental status NL Assessment Assessment Problems Medical Problems: (1) Acute renal failure (ARF) Status: Acute A/P; 1. Diffuse large B cell lymphoma (NHL) - CT 10/11/16 reveals Large abdominal mass encasing the infrarenal abdominal aorta measuring 12.7 cm. s/p CT-guided biopsy of this mass 10/13/16, LDH 334 on 10/16/16. I d/w Dr Patel, and received final confirmation that this is diffuse large B cell lymphoma. CT neck/chest 10/17/15revealed cervical LN. Echo 10/11/16 reveals normal EF 60-65%. Bone scan 10/17/15: No definite evidence of metastatic disease. Increased uptake in the pelvis compatible and left clavicle compatible with Paget's changes. Intense uptake at L2 compatible with the known fracture at this level. Mild uptake at T6 suggesting an old compression fracturepending. s/p portacath, bone marrow bx 10/18/16, S/p chemo with CHOP+R 10/19/16. Continue prednisone 100 mg daily to complete 5 days (day 5 today). Monitor for toxicities of chemo. No side effects so far, I d/w Dr Chung. Continue allopurinol prophylaxis since 10/17/16 (normal uric acid). Prophylactic Granix 480 mcg daily s/q x 10 days started 10/20/2016. 2. Hematuria/bleeding after procedure on 10/12/2016. He underwent cystoscopy and attempted stent placement which was unsuccessful. He had received Pradaxa on 10/11/2016 and hence he received Praxbind on 10/12/2016 at 4:30 p.m. The bleeding has now resolved 3. Coagulopathy due to Pradaxa improved after Praxbind infusion on 10/12/2016. 4. Renal failure. Appreciate Nephrology consultation, etiology thought to be due to bilateral hydronephrosis from abdominal mass. I d/w Dr Johnson who recommended changing the bilateral percutaneous nephrostomy drains to internal stents and I agree. I d/w Dr Kowalski 5. Paget's disease. He also has a T6, L2 compression fracture, thought to be due to Paget's disease. 6. Melanoma diagnosed several years ago, being followed by Dermatology. 7. Serum protein electrophoresis and immunofixation is negative. There is no clinical evidence to suggest myeloma. 8. Hypercalcemia could be secondary to underlying malignancy. On miacalcin. Ca normal 9. Hydronephrosis - I d/w Dr Johnson who recommended changing the bilateral percutaneous nephrostomy drains to internal stents on 10/24/16 and I agree. I d/w Dr Kowalski 10. Leukocytosis due to granix - monitor. Continue granix. WBC 18.9. Comment Review of Relevant I have reviewed the following items juan (where applicable) has been applied. Labs Laboratory Tests Test 10/22/16 10:25 10/23/16 05:15 10/24/16 05:30 White Blood Count 15.2x10^3/uL (4.0-11.0) 17.3x10^3/uL (4.0-11.0) 18.9x10^3/uL (4.0-11.0) Red Blood Count 2.58x10^6/uL (4.30-5.70) 2.55x10^6/uL (4.30-5.70) 2.73x10^6/uL (4.30-5.70) Hemoglobin 7.8g/dL (13.0-17.5) 7.7g/dL (13.0-17.5) 8.2g/dL (13.0-17.5) Hematocrit 23.3% (39.0-53.0) 23.6% (39.0-53.0) 25.3% (39.0-53.0) Mean Corpuscular Volume 90fL (79-100) 93fL (79-100) 93fL (79-100) Mean Corpuscular Hemoglobin 30pg (25-35) 30pg (25-35) 30pg (25-35) Mean Corpuscular Hemoglobin Concent 34g/dL (31-37) 33g/dL (31-37) 32g/dL (31-37) Red Cell Distribution Width 14.5% (11.5-14.5) 14.9% (11.5-14.5) 14.6% (11.5-14.5) Platelet Count 126x10^3/uL (140-400) 106x10^3/uL (140-400) 105x10^3/uL (140-400) Sodium Level 143mmol/L (136-145) 145mmol/L (136-145) 145mmol/L (136-145) Potassium Level 3.5mmol/L (3.5-5.1) 3.7mmol/L (3.5-5.1) 3.6mmol/L (3.5-5.1) Chloride Level 110mmol/L (98-107) 110mmol/L (98-107) 110mmol/L (98-107) Carbon Dioxide Level 27mmol/L (21-32) 27mmol/L (21-32) 26mmol/L (21-32) Anion Gap 6 (6-14) 8 (6-14) 9 (6-14) Blood Urea Nitrogen 46mg/dL (8-26) 47mg/dL (8-26) 44mg/dL (8-26) Creatinine 1.6mg/dL (0.7-1.3) 1.4mg/dL (0.7-1.3) 1.4mg/dL (0.7-1.3) Estimated GFR (Cockcroft-Gault) 41.5 48.4 48.4 BUN/Creatinine Ratio 29 (6-20) Glucose Level 91mg/dL (70-99) 98mg/dL (70-99) 110mg/dL (70-99) Calcium Level 9.6mg/dL (8.5-10.1) 9.5mg/dL (8.5-10.1) 9.2mg/dL (8.5-10.1) Phosphorus Level 2.8mg/dL (2.6-4.7) 3.0mg/dL (2.6-4.7) 3.1mg/dL (2.6-4.7) Total Bilirubin 0.4mg/dL (0.2-1.0) Aspartate Amino Transf (AST/SGOT) 25U/L (15-37) Alanine Aminotransferase (ALT/SGPT) 15U/L (16-63) Alkaline Phosphatase 57U/L (46-116) Total Protein 4.9g/dL (6.4-8.2) Albumin 2.1g/dL (3.4-5.0) 2.2g/dL (3.4-5.0) 2.3g/dL (3.4-5.0) Albumin/Globulin Ratio 0.8 (1.0-1.7) Magnesium Level 1.9mg/dL (1.8-2.4) Laboratory Tests Test 10/24/16 05:30 White Blood Count 18.9x10^3/uL (4.0-11.0) Red Blood Count 2.73x10^6/uL (4.30-5.70) Hemoglobin 8.2g/dL (13.0-17.5) Hematocrit 25.3% (39.0-53.0) Mean Corpuscular Volume 93fL (79-100) Mean Corpuscular Hemoglobin 30pg (25-35) Mean Corpuscular Hemoglobin Concent 32g/dL (31-37) Red Cell Distribution Width 14.6% (11.5-14.5) Platelet Count 105x10^3/uL (140-400) Sodium Level 145mmol/L (136-145) Potassium Level 3.6mmol/L (3.5-5.1) Chloride Level 110mmol/L (98-107) Carbon Dioxide Level 26mmol/L (21-32) Anion Gap 9 (6-14) Blood Urea Nitrogen 44mg/dL (8-26) Creatinine 1.4mg/dL (0.7-1.3) Estimated GFR (Cockcroft-Gault) 48.4 Glucose Level 110mg/dL (70-99) Calcium Level 9.2mg/dL (8.5-10.1) Phosphorus Level 3.1mg/dL (2.6-4.7) Albumin 2.3g/dL (3.4-5.0) Medications Current Medications Sodium Chloride 1,000 ml @ 100 mls/hr Q10H IV Last administered on 10/11/16 08 :49; Start 10/10/16 at 11:00; Stop 10/11/16 at 21:27; Status DC Magnesium Sulfate/ Dextrose (Magnesium Sulfate PREMIX 2GM) 50 ml @ 25 mls/hr PRN DAILY PRN IV for Mag < 1.7 on am labs Last administered on 10/14/16 13:04; Start 10/10/16 at 13:30; Stop 10/16/16 at 16:08; Status DC Sodium Polystyrene Sulfonate (Kayexalate) 45 gm 1X ONCE PO Last administered on 10/10/16 15:07; Start 10/10/16 at 13:30; Stop 10/10/16 at 13:44; Status DC Aspirin (Children'S Aspirin) 81 mg DAILY08 PO Last administered on 10/12/16 08: 47; Start 10/10/16 at 14:00; Stop 10/12/16 at 19:37; Status DC Dabigatran (Pradaxa) 150 mg BID PO Last administered on 10/10/16 21:48; Start 10/10/16 at 21:00; Stop 10/11/16 at 08:25; Status DC Potassium Chloride (Klor-Con) 20 meq DAILYWSUP PO ; Start 10/10/16 at 17:00; Stop 10/10/16 at 17:00; Status DC Sertraline HCl (Zoloft) 50 mg HS PO Last administered on 10/23/16 20:45; Start 10/10/16 at 21:00 Spironolactone (Aldactone) 25 mg DAILY PO ; Start 10/10/16 at 14:00; Stop at 14:17; Status DC Tamsulosin HCl (Flomax) 0.4 mg HS PO Last administered on 10/23/16 20:45; Start 10/10/16 at 21:00 Carvedilol (Coreg) 25 mg BIDWMEALS PO Last administered on 10/24/16 09:14; Start 10/10/16 at 17:00 Vitamin D (Vitamin D3) 5,000 unit DAILY PO Last administered on 10/23/16 11:43 ; Start 10/10/16 at 14:00 EZETIMIBE (Zetia) 10 mg DAILY PO ; Start 10/10/16 at 14:00; Stop 10/10/16 at 21: 00; Status Cancel Fenofibrate (Lofibra) 134 mg DAILY PO Last administered on 10/23/16 11:43; Start 10/10/16 at 14:00 Losartan Potassium (Cozaar) 100 mg QHS PO Last administered on 10/23/16 20:45 ; Start 10/10/16 at 21:00 Multivitamins/ Calcium (Thera M Plus) 1 tab DAILY PO Last administered on 11:43; Start 10/10/16 at 14:00 Non-Formulary Medication 20 meq DAILYWSUP PO ; Start 10/10/16 at 17:00; Status UNV Simvastatin (Zocor) 80 mg QHS PO Last administered on 10/23/16 20:45; Start at 21:00 Calcitonin [place] (Miacalcin) 400 unit BID SQ Last administered on 10/12/16 08: 51; Start 10/10/16 at 21:00; Stop 10/12/16 at 23:52; Status DC Info (Anti-Coagulation Monitoring By Pharmacy) 1 each PRN DAILY PRN MC SEE COMMENTS Last administered on 10/11/16 08:28; Start 10/10/16 at 14:45; Stop 10/13 at 09:44; Status DC Ondansetron HCl (Zofran) 4 mg PRN Q6HRS PRN IV NAUSEA/VOMITING; Start 10/10/16 at 15:30; Status Cancel EZETIMIBE (Zetia) 10 mg HS PO Last administered on 10/23/16 20:45; Start 10/10 at 21:00 Dabigatran (Pradaxa) 75 mg BID PO Last administered on 10/11/16 10:03; Start at 09:00; Stop 10/12/16 at 14:56; Status DC Ondansetron HCl (Zofran) 4 mg PRN Q6HRS PRN IV Nausea; Start 10/12/16 at 09:30; Stop 10/13/16 at 09:29; Status DC Fentanyl Citrate (Fentanyl 2ml Vial) 25 mcg PRN Q5MIN PRN IV MILD PAIN; Start 10/12/16 at 09:30; Stop 10/13/16 at 09:29; Status DC Fentanyl Citrate (Fentanyl 2ml Vial) 50 mcg PRN Q5MIN PRN IV MODERATE PAIN; Start 10/12/16 at 09:30; Stop 10/13/16 at 09:29; Status DC Morphine Sulfate 1 mg 1 mg PRN Q10MIN PRN IV SEVERE PAIN; Start 10/12/16 at 09: 30; Stop 10/13/16 at 09:29; Status DC Lactated Ringer's (Iv Lactated Ringers) 1,000 ml @ 0 mls/hr Q0M IV Last administered on 10/12/16 12:43; Start 10/12/16 at 09:29; Stop 10/12/16 at 21:28; Status DC Lidocaine HCl 2 ml 1X PRN PRN ID IV START; Start 10/12/16 at 09:30; Stop at 09:29; Status DC Hydromorphone HCl (Dilaudid) 0.5 mg PRN Q10MIN PRN IV SEV PAIN,Second choice; Start 10/12/16 at 09:30; Stop 10/13/16 at 09:29; Status DC Prochlorperazine Edisylate 5 mg 5 mg PACU PRN PRN IV NAUSEA; Start 10/12/16 at 09:30; Stop 10/13/16 at 09:29; Status DC Levofloxacin/ Dextrose (LEVAQUIN 250mg PREMIX) 50 ml @ 50 mls/hr Q24H IV Last administered on 10/15/16 08:39; Start 10/12/16 at 10:00; Stop 10/15/16 at 15:52; Status DC Iohexol 50 ml 50 ml STK-MED ONCE .ROUTE ; Start 10/12/16 at 11:38; Stop 10/12/16 at 11:39; Status DC Propofol (Diprivan) 20 ml @ As Directed STK-MED ONCE IV ; Start 10/12/16 at 12:25 ; Stop 10/12/16 at 12:26; Status DC Lidocaine HCl 100 mg STK-MED ONCE .ROUTE ; Start 10/12/16 at 12:25; Stop 10/12/16 at 12:26; Status DC Dexamethasone Sodium Phosphate (Decadron) 20 mg STK-MED ONCE .ROUTE ; Start 10/12 at 12:25; Stop 10/12/16 at 12:26; Status DC Ondansetron HCl (Zofran) 4 mg STK-MED ONCE .ROUTE ; Start 10/12/16 at 12:25; Stop 10/12/16 at 12:26; Status DC Fentanyl Citrate (Fentanyl 2ml Vial) 100 mcg STK-MED ONCE .ROUTE ; Start at 12:25; Stop 10/12/16 at 12:26; Status DC Phenylephrine HCl 1 mg STK-MED ONCE IV ; Start 10/12/16 at 13:59; Stop 10/12/16 at 14:00; Status DC Apixaban (Eliquis) 2.5 mg BID PO ; Start 10/12/16 at 21:00; Stop 10/12/16 at 21:00 ; Status DC Idarucizumab (Praxbind) 5 gm 1X ONCE IV Last administered on 10/12/16 16:48; Start 10/12/16 at 16:30; Stop 10/12/16 at 16:31; Status DC Heparin Sodium (Porcine) 10,000 unit STK-MED ONCE .ROUTE ; Start 10/12/16 at 15: 40; Stop 10/12/16 at 15:41; Status DC Lidocaine HCl 20 ml 20 ml STK-MED ONCE .ROUTE ; Start 10/12/16 at 15:40; Stop 10/12/16 at 15:41; Status DC Heparin Sodium/ Sodium Chloride 500 ml @ As Directed STK-MED ONCE .ROUTE ; Start 10/12/16 at 15:40; Stop 10/12/16 at 15:41; Status DC Lidocaine/ Epinephrine (Xylocaine 1%-Epi 1:100,000) 20 ml STK-MED ONCE .ROUTE ; Start 10/12/16 at 15:43; Stop 10/12/16 at 15:44; Status DC Heparin Sodium (Porcine) 2,400 unit 1X ONCE INT CAT Last administered on 16:27; Start 10/12/16 at 16:30; Stop 10/12/16 at 16:31; Status DC Heparin Sodium/ Sodium Chloride 6 unit 1X ONCE IV Last administered on 16:27; Start 10/12/16 at 16:30; Stop 10/12/16 at 16:31; Status DC Lidocaine/ Epinephrine 2 ml 2 ml 1X ONCE IJ Last administered on 10/12/16t 16: 28; Start 10/12/16 at 16:30; Stop 10/12/16 at 16:31; Status DC Sodium Chloride (Iv Sodium Chloride 0.9% 1000ml Bag) 1,000 ml @ 1,000 mls/hr Q1H PRN IV hypotension; Start 10/12/16 at 17:48; Stop 10/12/16 at 23:47; Status DC Diphenhydramine HCl (Benadryl) 25 mg 1X PRN PRN IV ITCHING; Start 10/12/16 at 18 :00; Stop 10/13/16 at 13:06; Status DC Diphenhydramine HCl (Benadryl) 25 mg 1X PRN PRN IV ITCHING; Start 10/12/16 at 18 :00; Stop 10/13/16 at 13:06; Status DC Sodium Chloride (Normal Saline Flush) 10 ml 1X PRN PRN IV AP catheter pack; Start 10/12/16 at 18:00; Stop 10/13/16 at 13:06; Status DC Sodium Chloride 10 ml 10 ml 1X PRN PRN IV SHADE MATCHER catheter pack; Start 10/12/16 at 18 :00; Stop 10/13/16 at 13:06; Status DC Sodium Chloride (Iv Sodium Chloride 0.9% 1000ml Bag) 1,000 ml @ 400 mls/hr Q2H30M PRN IV PATENCY; Start 10/12/16 at 17:48; Stop 10/13/16 at 05:47; Status DC Sodium Chloride (Normal Saline Flush) 10 ml 1X PRN PRN IV AP catheter pack; Start 10/13/16 at 11:00; Stop 10/13/16 at 18:00; Status DC Sodium Chloride (Normal Saline Flush) 10 ml 1X PRN PRN IV SHADE MATCHER catheter pack; Start 10/13/16 at 11:00; Stop 10/13/16 at 18:00; Status DC Info (PHARMACY MONITORING -- do not chart) 1 each PRN DAILY PRN MC SEE COMMENTS ; Start 10/13/16 at 11:00 Info (PHARMACY MONITORING -- do not chart) 1 each PRN DAILY PRN MC SEE COMMENTS ; Start 10/13/16 at 11:00; Stop 10/13/16 at 11:05; Status DC Lidocaine/Sodium Bicarbonate 20 ml 20 ml 1X ONCE IJ Last administered on 16:23; Start 10/13/16 at 13:15; Stop 10/13/16 at 13:16; Status DC Levofloxacin/ Dextrose (LEVAQUIN 250mg PREMIX) 50 ml @ 100 mls/hr 1X ONCE IV Last administered on 10/13/16 16:25; Start 10/13/16 at 13:30; Stop 10/13/16 at 13: 59; Status DC Midazolam HCl (Versed) 2 mg STK-MED ONCE .ROUTE ; Start 10/13/16 at 14:03; Stop 10/13/16 at 14:04; Status DC Fentanyl Citrate (Fentanyl 2ml Vial) 100 mcg STK-MED ONCE .ROUTE ; Start at 14:03; Stop 10/13/16 at 14:04; Status DC Gelatin (Gelfoam Size 12-7mm) 1 each STK-MED ONCE .ROUTE ; Start 10/13/16 at 14: 44; Stop 10/13/16 at 14:45; Status DC Midazolam HCl (Versed) 2 mg 1X ONCE IV Last administered on 10/13/16 16:25; Start 10/13/16 at 15:00; Stop 10/13/16 at 15:01; Status DC Fentanyl Citrate (Fentanyl 2ml Vial) 100 mcg 1X ONCE IV Last administered on 16:26; Start 10/13/16 at 15:00; Stop 10/13/16 at 15:01; Status DC Fentanyl Citrate (Fentanyl 2ml Vial) 50 mcg PRN Q2HR PRN IV SEVERE PAIN Last administered on 10/14/16 20:58; Start 10/14/16 at 01:30 Levofloxacin (Levaquin) 250 mg DAILY06 PO Last administered on 10/24/16 05:37 ; Start 10/16/16 at 06:00 Acetaminophen/ Hydrocodone Bitart 1 tab 1 tab PRN Q4HRS PRN PO PAIN Last administered on 10/23/16 17:33; Start 10/15/16 at 17:45 Magnesium Sulfate/ Dextrose 50 ml @ 25 mls/hr PRN DAILY PRN IV for Mag < 1.7 on am labs Last administered on 10/17/16 10:26; Start 10/16/16 at 14:45 Potassium Chloride 50 ml @ 50 mls/hr PRN Q6HRS PRN IV For K < 3.7; Start at 14:45 Potassium Chloride (KCl Premix 20meq) 50 ml @ 50 mls/hr PRN Q2HR PRN IV total of 40mEq for K < 3.5; Start 10/16/16 at 14:45 Calcitonin [place] 400 unit 400 unit BID SQ Last administered on 10/19/16 13:50 ; Start 10/16/16 at 21:00; Stop 10/19/16 at 09:01; Status DC Potassium Chloride 40 meq/ Sodium Chloride 1,020 ml @ 100 mls/hr [id number] IV Last administered on 10/17/16 22:37; Start 10/17/16 at 09:15; Stop 10/18/16 at 05: 38; Status DC Sodium Chloride (Iv Sodium Chloride 0.9% 1000ml Bag) 1,000 ml @ 100 mls/hr Q10H IV Last administered on 10/24/16 03:21; Start 10/18/16 at 06:00 Allopurinol (Zyloprim) 100 mg DAILY PO Last administered on 10/23/16 11:43; Start 10/17/16 at 10:30 Lidocaine/Sodium Bicarbonate (Buffered Lidocaine 1%) 20 ml 1X ONCE IJ Last administered on 10/18/16 11:54; Start 10/18/16 at 10:30; Stop 10/18/16 at 10:31; Status DC Midazolam HCl (Versed) 5 mg STK-MED ONCE .ROUTE ; Start 10/18/16 at 10:26; Stop 10/18/16 at 10:27; Status DC Fentanyl Citrate (Fentanyl 5ml Vial) 250 mcg STK-MED ONCE .ROUTE ; Start at 10:26; Stop 10/18/16 at 10:27; Status DC Midazolam HCl (Versed) 5 mg 1X ONCE IV Last administered on 10/18/16 11:55; Start 10/18/16 at 10:30; Stop 10/18/16 at 10:35; Status DC Fentanyl Citrate (Fentanyl 5ml Vial) 250 mcg 1X ONCE IV Last administered on 11:55; Start 10/18/16 at 10:30; Stop 10/18/16 at 10:35; Status DC Heparin Sodium (Porcine) (Hep Lock Adult) 500 unit STK-MED ONCE IV ; Start at 11:02; Stop 10/18/16 at 11:03; Status DC Lidocaine/ Epinephrine 20 ml 20 ml STK-MED ONCE .ROUTE ; Start 10/18/16 at 11:02 ; Stop 10/18/16 at 11:03; Status DC Heparin Sodium/ Sodium Chloride 500 ml @ As Directed STK-MED ONCE .ROUTE ; Start 10/18/16 at 11:02; Stop 10/18/16 at 11:03; Status DC Vancomycin HCl 250 ml @ As Directed STK-MED ONCE .ROUTE ; Start 10/18/16 at 11: 02; Stop 10/18/16 at 11:03; Status DC Cefazolin Sodium (Ancef 1gm Ivpb For Omni) 50 ml @ As Directed STK-MED ONCE IV ; Start 10/18/16 at 11:18; Stop 10/18/16 at 11:19; Status DC Heparin Sodium/ Sodium Chloride 1000 unit 1,000 unit 1X ONCE IART Last administered on 10/18/16 11:53; Start 10/18/16 at 11:30; Stop 10/18/16 at 11:35; Status DC Cefazolin Sodium 50 ml @ 100 mls/hr 1X ONCE IV Last administered on 10/18/16 11:59; Start 10/18/16 at 11:30; Stop 10/18/16 at 11:59; Status DC Vancomycin HCl 250 ml @ 250 mls/hr 1X ONCE IRR Last administered on 10/18/16 11:54; Start 10/18/16 at 11:30; Stop 10/18/16 at 12:29; Status DC Heparin Sodium (Porcine) (Hep Lock Adult) 500 unit 1X ONCE IV Last administered on 10/18/16 11:59; Start 10/18/16 at 11:30; Stop 10/18/16 at 11:35; Status DC Lidocaine/ Epinephrine 20 ml 20 ml 1X ONCE IJ Last administered on 10/18/16 11 :56; Start 10/18/16 at 11:30; Stop 10/18/16 at 11:35; Status DC Rituximab 775 mg/ Sodium Chloride 852.5 ml @ 213.125 mls/hr 1X ONCE IV Last administered on 10/19/16 12:00; Start 10/19/16 at 11:30; Stop 10/19/16 at 15:29; Status DC Cyclophosphamide 1500 mg/Sodium Chloride 250 ml @ 500 mls/hr ONCE ONCE IV Last administered on 10/19/16 10:13; Start 10/19/16 at 09:00; Stop 10/19/16 at 09: 29; Status DC Doxorubicin HCl 100 mg/ Miscellaneous 50 ml @ 600 mls/hr ONCE ONCE IV Last administered on 10/19/16 11:11; Start 10/19/16 at 09:00; Stop 10/19/16 at 09:04; Status DC Vincristine Sulfate/Sodium Chloride (Oncovin/Iv Sodium Chloride 0.9% 50ml) 50 ml @ 275 mls/hr ONCE ONCE IV Last administered on 10/19/16 11:14; Start at 09:00; Stop 10/19/16 at 09:10; Status DC Tbo-Filgrastim (Granix) 480 mcg QHS SQ Last administered on 10/23/16 20:44; Start 10/20/16 at 21:00; Stop 10/29/16 at 23:00 Acetaminophen (Tylenol) 650 mg ONCE ONCE PO Last administered on 10/19/16 11: 16; Start 10/19/16 at 11:30; Stop 10/19/16 at 11:31; Status DC Diphenhydramine HCl 50 mg 50 mg ONCE ONCE PO Last administered on 10/19/16 11: 16; Start 10/19/16 at 11:00; Stop 10/19/16 at 11:01; Status DC Ondansetron HCl/ Sodium Chloride (Zofran/Iv Sodium Chloride 0.9% 50ml) 56 ml @ 112 mls/hr ONCE ONCE IV Last administered on 10/19/16 09:06; Start 10/19/16 at 08:30; Stop 10/19/16 at 08:59; Status DC Ondansetron HCl (Zofran) 4 mg PRN Q4HRS PRN IV NAUSEA/VOMITING; Start 10/18/16 at 14:45 Prednisone (Prednisone) 100 mg DAILY PO Last administered on 10/23/16 11:43; Start 10/19/16 at 09:00; Stop 10/23/16 at 09:01; Status DC Dexamethasone 20 mg 20 mg 1X ONCE PO Last administered on 10/19/16 09:07; Start 10/19/16 at 08:30; Stop 10/19/16 at 08:31; Status DC Magnesium Sulfate/ Dextrose 50 ml @ 25 mls/hr 1X ONCE IV Last administered on 10/19/16 06:05; Start 10/19/16 at 05:45; Stop 10/19/16 at 07:44; Status DC Potassium Chloride (KCl Premix 20meq) 50 ml @ 25 mls/hr Q2HR IV Last administered on 10/20/16 18:15; Start 10/20/16 at 16:00; Stop 10/20/16 at 19:59 ; Status DC Magnesium Hydroxide (Milk Of Magnesia) 2,400 mg PRN DAILY PRN PO CONSTIPATION Last administered on 10/22/16 09:12; Start 10/21/16 at 16:30 Sodium Biphosphate/ Sodium Phosphate (Fleet Adult) 133 ml 1X ONCE OR Last administered on 10/21/16 18:03; Start 10/21/16 at 16:45; Stop 10/21/16 at 16:46 ; Status DC Senna/Docusate Sodium (Senna Plus) 2 tab PRN BID PRN PO CONSTIPATION Last administered on 10/22/16 16:10; Start 10/22/16 at 14:45 Polyethylene Glycol (miraLAX Powder BULK BOTTLE) 238 gm 1X ONCE PO ; Start 08/26 at 15:00; Stop 10/22/16 at 15:01; Status DC Ondansetron HCl (Zofran) 4 mg PRN Q6HRS PRN IV Nausea; Start 10/24/16 at 07:00 ; Stop 10/24/16 at 23:00 Fentanyl Citrate (Fentanyl 2ml Vial) 25 mcg PRN Q5MIN PRN IV MILD PAIN; Start 10/24/16 at 07:00; Stop 10/24/16 at 23:00 Fentanyl Citrate (Fentanyl 2ml Vial) 50 mcg PRN Q5MIN PRN IV MODERATE PAIN; Start 10/24/16 at 07:00; Stop 10/24/16 at 23:00 Morphine Sulfate 1 mg 1 mg PRN Q10MIN PRN IV SEVERE PAIN; Start 10/24/16 at 07: 00; Stop 10/24/16 at 23:00 Lactated Ringer's (Iv Lactated Ringers) 1,000 ml @ 30 mls/hr Q24H IV ; Start at 07:00; Stop 10/24/16 at 18:59 Lidocaine HCl 2 ml 1X PRN PRN ID IV START; Start 10/24/16 at 07:00; Stop at 23:00 Hydromorphone HCl (Dilaudid) 0.5 mg PRN Q10MIN PRN IV SEVERE PAIN, Second choice; Start 10/24/16 at 07:00; Stop 10/24/16 at 23:00 Prochlorperazine Edisylate (Compazine) 5 mg PACU PRN PRN IV NAUSEA; Start 10/24 at 07:00; Stop 10/24/16 at 23:00 Active Scripts Active Reported Fenofibrate (Fenofibrate Nanocrystallized) 145 Mg Tablet 1 Tab PO DAILYWLUN Potassium Chloride 20 Meq Tablet.er 20 Meq PO DAILYWSUP Calcium (Calcium Carbonate) 600 Mg Tablet 600 Mg PO Vytorin 10-80 Mg Tablet (Ezetimibe/Simvastatin) 1 Each Tablet 1 Each PO HS Multi-Vitamin Daily (Multivitamin) 1 Each Tablet 1 Each PO DAILY Vitamin D3 (Cholecalciferol (Vitamin D3)) 5,000 Unit Tablet 1 Tab PO DAILY Pradaxa (Dabigatran Etexilate Mesylate) 150 Mg Capsule 1 Cap PO BID Zoloft (Sertraline Hcl) 50 Mg Tablet 1 Tab PO HS Tamsulosin Hcl 0.4 Mg Cap.er.24h 1 Cap PO HS Losartan Potassium 100 Mg Tablet 100 Mg PO HS Klor-Con M20 (Potassium Chloride) 20 Meq Tab.er.prt 1 Tab PO DAILY Spironolactone 25 Mg Tablet 1 Tab PO DAILY Aspirin 81 Mg Tab.chew 1 Tab PO DAILY Carvedilol 25 Mg Tablet 1 Tab PO BID Vitals/I & O Vital Sign - Last 24 Hours 10/23/16 10/23/16 10/23/16 10/23/16 11:00 11:43 15:00 17:32 Temp 97.5 97.4 97.5 97.4 Pulse 85 82 82 Resp 18 B/P 150/81 138/90 142/83 142/83 Pulse Ox 95 94 O2 Delivery Room Air Room Air 10/23/16 10/23/16 10/23/16 10/23/16 17:33 18:40 19:00 20:20 Temp 97.4 97.4 Pulse 108 Resp 18 18 22 B/P 157/101 Pulse Ox 95 O2 Delivery Room Air Room Air Room Air Room Air 10/23/16 10/23/16 10/24/16 10/24/16 20:45 23:00 03:49 07:00 Temp 97.4 97.9 97.9 97.4 97.9 97.9 Pulse 108 101 97 100 Resp 18 B/P 157/101 128/91 139/85 148/103 Pulse Ox 93 94 95 O2 Delivery Room Air Room Air Room Air 10/24/16 09:14 Pulse 100 B/P 148/103 Intake and Output 10/23/16 10/23/16 10/24/16 15:00 23:00 07:00 Output Total 600 ml 700 ml 250 ml Balance -600 ml -700 ml -250 ml JENNIFER QURESHI MD Oct 24, 2016 09:21
--- NOTE | 2016-10-24 10:00 | PDOC ---
PROGRESS NOTES Subjective Subjective Pt awake and pleasant. States he is eating and drinking well with good output. Objective Objective Pt awake and alert. NAD. VSS. Afebrile. Lungs CTA bilat. Resp even and unlabored. Heart with RRR. No murmurs. Pt with bilat nephrostomy tubes. Vital Signs Date Time Temp Pulse Resp B/P Pulse Ox O2 Delivery O2 Flow Rate FiO2 10/24/16 09:14 100 148/103 10/24/16 07:00 97.9 18 95 Room Air 97.9 10/19/16 16:00 2.0 Intake and Output 10/24/16 07:00 Output Total 1550 ml Balance -1550 ml Output Urine Total 250 ml Drainage Total 1300 ml # Bowel Movements 2 Assessment Assessment Problems Medical Problems: (1) Acute renal failure (ARF) Status: Acute Plan Plan of Care 1. 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 -s/p CT-guided biopsy of this mass 10/13/16 -CT neck/chest 10/17/15: revealed cervical LN. -Echo 10/11/16 reveals normal EF 60-65%. -Bone scan 10/17/15: No definite evidence of metastatic disease. Increased uptake in the pelvis compatible and left clavicle compatible with Paget's changes. Intense uptake at L2 compatible with the known fracture at this level. Mild uptake at T6 suggesting an old compression fracture pending. -Portacath and bone marrow bx 10/18/16, -Chemo initiated 10/19/16. Pt tolerated well. 2. Acute renal failure -Creat 5.5 upon admission, 1.4 this am. Baseline 1.4 -Renal US: Left greater than right hydronephrosis with small left renal cyst -Renal team consulting -Coleman placed -Uretal stenting attempted on 10/12, unsuccessful d/t prostate bleeding. Prodaxa stopped and reversal agent given. No additional bleeding. Hgb stable -Bilat nephrostomy tubes placed. Plans for removal of nephrostomy tubes and stent placement today. -Pt will require nephrostomy tubes/stenting in place till abdominal tumor shrinks. Onc optimistic for rapid response with chemo, possibly 2-3 weeks. 3. Hyperkalemia, now hypokalemia. Resolved -K 5.9 upon admission, 5.0 this am following Kayexalate dosing. 3.7 this am. 4. Hypercalcemia, resolved -Ca 14.4 upon admission, 11.9 following Miacalcin x3. 9.2 this am -secondary to malignancy 5. 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 Probable associated spinal stenosis at L2-3 due to retropulsion at the L2 fracture site. Moderate multilevel degenerative change. Distal abdominal aortic aneurysm. -bone scan: Increased uptake in the pelvis compatible and left clavicle compatible with Paget's changes. Intense uptake at L2 compatible with the known fracture at this level. Mild uptake at T6 suggesting an old compression fracture pending. 6. Leukocytosis -23.6K on 10/21. 18.9K this am -Secondary to Neupogen. Hopeful for Dc tomorrow am following stent placement today. Pt will need SNF for rehabilitation. SW consulting to help with Dc plans. Comment Review of Relevant I have reviewed the following items juan (where applicable) has been applied. Labs Laboratory Tests Test 10/22/16 10:25 10/23/16 05:15 10/24/16 05:30 White Blood Count 15.2x10^3/uL (4.0-11.0) 17.3x10^3/uL (4.0-11.0) 18.9x10^3/uL (4.0-11.0) Red Blood Count 2.58x10^6/uL (4.30-5.70) 2.55x10^6/uL (4.30-5.70) 2.73x10^6/uL (4.30-5.70) Hemoglobin 7.8g/dL (13.0-17.5) 7.7g/dL (13.0-17.5) 8.2g/dL (13.0-17.5) Hematocrit 23.3% (39.0-53.0) 23.6% (39.0-53.0) 25.3% (39.0-53.0) Mean Corpuscular Volume 90fL (79-100) 93fL (79-100) 93fL (79-100) Mean Corpuscular Hemoglobin 30pg (25-35) 30pg (25-35) 30pg (25-35) Mean Corpuscular Hemoglobin Concent 34g/dL (31-37) 33g/dL (31-37) 32g/dL (31-37) Red Cell Distribution Width 14.5% (11.5-14.5) 14.9% (11.5-14.5) 14.6% (11.5-14.5) Platelet Count 126x10^3/uL (140-400) 106x10^3/uL (140-400) 105x10^3/uL (140-400) Sodium Level 143mmol/L (136-145) 145mmol/L (136-145) 145mmol/L (136-145) Potassium Level 3.5mmol/L (3.5-5.1) 3.7mmol/L (3.5-5.1) 3.6mmol/L (3.5-5.1) Chloride Level 110mmol/L (98-107) 110mmol/L (98-107) 110mmol/L (98-107) Carbon Dioxide Level 27mmol/L (21-32) 27mmol/L (21-32) 26mmol/L (21-32) Anion Gap 6 (6-14) 8 (6-14) 9 (6-14) Blood Urea Nitrogen 46mg/dL (8-26) 47mg/dL (8-26) 44mg/dL (8-26) Creatinine 1.6mg/dL (0.7-1.3) 1.4mg/dL (0.7-1.3) 1.4mg/dL (0.7-1.3) Estimated GFR (Cockcroft-Gault) 41.5 48.4 48.4 BUN/Creatinine Ratio 29 (6-20) Glucose Level 91mg/dL (70-99) 98mg/dL (70-99) 110mg/dL (70-99) Calcium Level 9.6mg/dL (8.5-10.1) 9.5mg/dL (8.5-10.1) 9.2mg/dL (8.5-10.1) Phosphorus Level 2.8mg/dL (2.6-4.7) 3.0mg/dL (2.6-4.7) 3.1mg/dL (2.6-4.7) Total Bilirubin 0.4mg/dL (0.2-1.0) Aspartate Amino Transf (AST/SGOT) 25U/L (15-37) Alanine Aminotransferase (ALT/SGPT) 15U/L (16-63) Alkaline Phosphatase 57U/L (46-116) Total Protein 4.9g/dL (6.4-8.2) Albumin 2.1g/dL (3.4-5.0) 2.2g/dL (3.4-5.0) 2.3g/dL (3.4-5.0) Albumin/Globulin Ratio 0.8 (1.0-1.7) Magnesium Level 1.9mg/dL (1.8-2.4) Laboratory Tests Test 10/24/16 05:30 White Blood Count 18.9x10^3/uL (4.0-11.0) Red Blood Count 2.73x10^6/uL (4.30-5.70) Hemoglobin 8.2g/dL (13.0-17.5) Hematocrit 25.3% (39.0-53.0) Mean Corpuscular Volume 93fL (79-100) Mean Corpuscular Hemoglobin 30pg (25-35) Mean Corpuscular Hemoglobin Concent 32g/dL (31-37) Red Cell Distribution Width 14.6% (11.5-14.5) Platelet Count 105x10^3/uL (140-400) Sodium Level 145mmol/L (136-145) Potassium Level 3.6mmol/L (3.5-5.1) Chloride Level 110mmol/L (98-107) Carbon Dioxide Level 26mmol/L (21-32) Anion Gap 9 (6-14) Blood Urea Nitrogen 44mg/dL (8-26) Creatinine 1.4mg/dL (0.7-1.3) Estimated GFR (Cockcroft-Gault) 48.4 Glucose Level 110mg/dL (70-99) Calcium Level 9.2mg/dL (8.5-10.1) Phosphorus Level 3.1mg/dL (2.6-4.7) Albumin 2.3g/dL (3.4-5.0) Medications Current Medications Sodium Chloride 1,000 ml @ 100 mls/hr Q10H IV Last administered on 10/11/16 08 :49; Start 10/10/16 at 11:00; Stop 10/11/16 at 21:27; Status DC Magnesium Sulfate/ Dextrose (Magnesium Sulfate PREMIX 2GM) 50 ml @ 25 mls/hr PRN DAILY PRN IV for Mag < 1.7 on am labs Last administered on 10/14/16 13:04; Start 10/10/16 at 13:30; Stop 10/16/16 at 16:08; Status DC Sodium Polystyrene Sulfonate (Kayexalate) 45 gm 1X ONCE PO Last administered on 10/10/16 15:07; Start 10/10/16 at 13:30; Stop 10/10/16 at 13:44; Status DC Aspirin (Children'S Aspirin) 81 mg DAILY08 PO Last administered on 10/12/16 08: 47; Start 10/10/16 at 14:00; Stop 10/12/16 at 19:37; Status DC Dabigatran (Pradaxa) 150 mg BID PO Last administered on 10/10/16 21:48; Start 10/10/16 at 21:00; Stop 10/11/16 at 08:25; Status DC Potassium Chloride (Klor-Con) 20 meq DAILYWSUP PO ; Start 10/10/16 at 17:00; Stop 10/10/16 at 17:00; Status DC Sertraline HCl (Zoloft) 50 mg HS PO Last administered on 10/23/16 20:45; Start 10/10/16 at 21:00 Spironolactone (Aldactone) 25 mg DAILY PO ; Start 10/10/16 at 14:00; Stop at 14:17; Status DC Tamsulosin HCl (Flomax) 0.4 mg HS PO Last administered on 10/23/16 20:45; Start 10/10/16 at 21:00 Carvedilol (Coreg) 25 mg BIDWMEALS PO Last administered on 10/24/16 09:14; Start 10/10/16 at 17:00 Vitamin D (Vitamin D3) 5,000 unit DAILY PO Last administered on 10/23/16 11:43 ; Start 10/10/16 at 14:00 EZETIMIBE (Zetia) 10 mg DAILY PO ; Start 10/10/16 at 14:00; Stop 10/10/16 at 21: 00; Status Cancel Fenofibrate (Lofibra) 134 mg DAILY PO Last administered on 10/23/16 11:43; Start 10/10/16 at 14:00 Losartan Potassium (Cozaar) 100 mg QHS PO Last administered on 10/23/16 20:45 ; Start 10/10/16 at 21:00 Multivitamins/ Calcium (Thera M Plus) 1 tab DAILY PO Last administered on 11:43; Start 10/10/16 at 14:00 Non-Formulary Medication 20 meq DAILYWSUP PO ; Start 10/10/16 at 17:00; Status UNV Simvastatin (Zocor) 80 mg QHS PO Last administered on 10/23/16 20:45; Start at 21:00 Calcitonin Lennox (Miacalcin) 400 unit BID SQ Last administered on 10/12/16 08: 51; Start 10/10/16 at 21:00; Stop 10/12/16 at 23:52; Status DC Info (Anti-Coagulation Monitoring By Pharmacy) 1 each PRN DAILY PRN MC SEE COMMENTS Last administered on 10/11/16 08:28; Start 10/10/16 at 14:45; Stop 10/13 at 09:44; Status DC Ondansetron HCl (Zofran) 4 mg PRN Q6HRS PRN IV NAUSEA/VOMITING; Start 10/10/16 at 15:30; Status Cancel EZETIMIBE (Zetia) 10 mg HS PO Last administered on 10/23/16 20:45; Start 10/10 at 21:00 Dabigatran (Pradaxa) 75 mg BID PO Last administered on 10/11/16 10:03; Start at 09:00; Stop 10/12/16 at 14:56; Status DC Ondansetron HCl (Zofran) 4 mg PRN Q6HRS PRN IV Nausea; Start 10/12/16 at 09:30; Stop 10/13/16 at 09:29; Status DC Fentanyl Citrate (Fentanyl 2ml Vial) 25 mcg PRN Q5MIN PRN IV MILD PAIN; Start 10/12/16 at 09:30; Stop 10/13/16 at 09:29; Status DC Fentanyl Citrate (Fentanyl 2ml Vial) 50 mcg PRN Q5MIN PRN IV MODERATE PAIN; Start 10/12/16 at 09:30; Stop 10/13/16 at 09:29; Status DC Morphine Sulfate 1 mg 1 mg PRN Q10MIN PRN IV SEVERE PAIN; Start 10/12/16 at 09: 30; Stop 10/13/16 at 09:29; Status DC Lactated Ringer's (Iv Lactated Ringers) 1,000 ml @ 0 mls/hr Q0M IV Last administered on 10/12/16 12:43; Start 10/12/16 at 09:29; Stop 10/12/16 at 21:28; Status DC Lidocaine HCl 2 ml 1X PRN PRN ID IV START; Start 10/12/16 at 09:30; Stop at 09:29; Status DC Hydromorphone HCl (Dilaudid) 0.5 mg PRN Q10MIN PRN IV SEV PAIN,Second choice; Start 10/12/16 at 09:30; Stop 10/13/16 at 09:29; Status DC Prochlorperazine Edisylate 5 mg 5 mg PACU PRN PRN IV NAUSEA; Start 10/12/16 at 09:30; Stop 10/13/16 at 09:29; Status DC Levofloxacin/ Dextrose (LEVAQUIN 250mg PREMIX) 50 ml @ 50 mls/hr Q24H IV Last administered on 10/15/16 08:39; Start 10/12/16 at 10:00; Stop 10/15/16 at 15:52; Status DC Iohexol 50 ml 50 ml STK-MED ONCE .ROUTE ; Start 10/12/16 at 11:38; Stop 10/12/16 at 11:39; Status DC Propofol (Diprivan) 20 ml @ As Directed STK-MED ONCE IV ; Start 10/12/16 at 12:25 ; Stop 10/12/16 at 12:26; Status DC Lidocaine HCl 100 mg STK-MED ONCE .ROUTE ; Start 10/12/16 at 12:25; Stop 10/12/16 at 12:26; Status DC Dexamethasone Sodium Phosphate (Decadron) 20 mg STK-MED ONCE .ROUTE ; Start 10/12 at 12:25; Stop 10/12/16 at 12:26; Status DC Ondansetron HCl (Zofran) 4 mg STK-MED ONCE .ROUTE ; Start 10/12/16 at 12:25; Stop 10/12/16 at 12:26; Status DC Fentanyl Citrate (Fentanyl 2ml Vial) 100 mcg STK-MED ONCE .ROUTE ; Start at 12:25; Stop 10/12/16 at 12:26; Status DC Phenylephrine HCl 1 mg STK-MED ONCE IV ; Start 10/12/16 at 13:59; Stop 10/12/16 at 14:00; Status DC Apixaban (Eliquis) 2.5 mg BID PO ; Start 10/12/16 at 21:00; Stop 10/12/16 at 21:00 ; Status DC Idarucizumab (Praxbind) 5 gm 1X ONCE IV Last administered on 10/12/16 16:48; Start 10/12/16 at 16:30; Stop 10/12/16 at 16:31; Status DC Heparin Sodium (Porcine) 10,000 unit STK-MED ONCE .ROUTE ; Start 10/12/16 at 15: 40; Stop 10/12/16 at 15:41; Status DC Lidocaine HCl 20 ml 20 ml STK-MED ONCE .ROUTE ; Start 10/12/16 at 15:40; Stop 10/12/16 at 15:41; Status DC Heparin Sodium/ Sodium Chloride 500 ml @ As Directed STK-MED ONCE .ROUTE ; Start 10/12/16 at 15:40; Stop 10/12/16 at 15:41; Status DC Lidocaine/ Epinephrine (Xylocaine 1%-Epi 1:100,000) 20 ml STK-MED ONCE .ROUTE ; Start 10/12/16 at 15:43; Stop 10/12/16 at 15:44; Status DC Heparin Sodium (Porcine) 2,400 unit 1X ONCE INT CAT Last administered on 16:27; Start 10/12/16 at 16:30; Stop 10/12/16 at 16:31; Status DC Heparin Sodium/ Sodium Chloride 6 unit 1X ONCE IV Last administered on 2/2/ 17at 16:27; Start 10/12/16 at 16:30; Stop 10/12/16 at 16:31; Status DC Lidocaine/ Epinephrine 2 ml 2 ml 1X ONCE IJ Last administered on 10/12/16t 16: 28; Start 10/12/16 at 16:30; Stop 10/12/16 at 16:31; Status DC Sodium Chloride (Iv Sodium Chloride 0.9% 1000ml Bag) 1,000 ml @ 1,000 mls/hr Q1H PRN IV hypotension; Start 10/12/16 at 17:48; Stop 10/12/16 at 23:47; Status DC Diphenhydramine HCl (Benadryl) 25 mg 1X PRN PRN IV ITCHING; Start 10/12/16 at 18 :00; Stop 10/13/16 at 13:06; Status DC Diphenhydramine HCl (Benadryl) 25 mg 1X PRN PRN IV ITCHING; Start 10/12/16 at 18 :00; Stop 10/13/16 at 13:06; Status DC Sodium Chloride (Normal Saline Flush) 10 ml 1X PRN PRN IV AP catheter pack; Start 10/12/16 at 18:00; Stop 10/13/16 at 13:06; Status DC Sodium Chloride 10 ml 10 ml 1X PRN PRN IV [employer] catheter pack; Start 10/12/16 at 18 :00; Stop 10/13/16 at 13:06; Status DC Sodium Chloride (Iv Sodium Chloride 0.9% 1000ml Bag) 1,000 ml @ 400 mls/hr Q2H30M PRN IV PATENCY; Start 10/12/16 at 17:48; Stop 10/13/16 at 05:47; Status DC Sodium Chloride (Normal Saline Flush) 10 ml 1X PRN PRN IV AP catheter pack; Start 10/13/16 at 11:00; Stop 10/13/16 at 18:00; Status DC Sodium Chloride (Normal Saline Flush) 10 ml 1X PRN PRN IV [employer] catheter pack; Start 10/13/16 at 11:00; Stop 10/13/16 at 18:00; Status DC Info (PHARMACY MONITORING -- do not chart) 1 each PRN DAILY PRN MC SEE COMMENTS ; Start 10/13/16 at 11:00 Info (PHARMACY MONITORING -- do not chart) 1 each PRN DAILY PRN MC SEE COMMENTS ; Start 10/13/16 at 11:00; Stop 10/13/16 at 11:05; Status DC Lidocaine/Sodium Bicarbonate 20 ml 20 ml 1X ONCE IJ Last administered on 16:23; Start 10/13/16 at 13:15; Stop 10/13/16 at 13:16; Status DC Levofloxacin/ Dextrose (LEVAQUIN 250mg PREMIX) 50 ml @ 100 mls/hr 1X ONCE IV Last administered on 10/13/16 16:25; Start 10/13/16 at 13:30; Stop 10/13/16 at 13: 59; Status DC Midazolam HCl (Versed) 2 mg STK-MED ONCE .ROUTE ; Start 10/13/16 at 14:03; Stop 10/13/16 at 14:04; Status DC Fentanyl Citrate (Fentanyl 2ml Vial) 100 mcg STK-MED ONCE .ROUTE ; Start at 14:03; Stop 10/13/16 at 14:04; Status DC Gelatin (Gelfoam Size 12-7mm) 1 each STK-MED ONCE .ROUTE ; Start 10/13/16 at 14: 44; Stop 10/13/16 at 14:45; Status DC Midazolam HCl (Versed) 2 mg 1X ONCE IV Last administered on 10/13/16 16:25; Start 10/13/16 at 15:00; Stop 10/13/16 at 15:01; Status DC Fentanyl Citrate (Fentanyl 2ml Vial) 100 mcg 1X ONCE IV Last administered on 16:26; Start 10/13/16 at 15:00; Stop 10/13/16 at 15:01; Status DC Fentanyl Citrate (Fentanyl 2ml Vial) 50 mcg PRN Q2HR PRN IV SEVERE PAIN Last administered on 10/14/16 20:58; Start 10/14/16 at 01:30 Levofloxacin (Levaquin) 250 mg DAILY06 PO Last administered on 10/24/16 05:37 ; Start 10/16/16 at 06:00 Acetaminophen/ Hydrocodone Bitart 1 tab 1 tab PRN Q4HRS PRN PO PAIN Last administered on 10/23/16 17:33; Start 10/15/16 at 17:45 Magnesium Sulfate/ Dextrose 50 ml @ 25 mls/hr PRN DAILY PRN IV for Mag < 1.7 on am labs Last administered on 10/17/16 10:26; Start 10/16/16 at 14:45 Potassium Chloride 50 ml @ 50 mls/hr PRN Q6HRS PRN IV For K < 3.7; Start at 14:45 Potassium Chloride (KCl Premix 20meq) 50 ml @ 50 mls/hr PRN Q2HR PRN IV total of 40mEq for K < 3.5; Start 10/16/16 at 14:45 Calcitonin Lennox 400 unit 400 unit BID SQ Last administered on 10/19/16 13:50 ; Start 10/16/16 at 21:00; Stop 10/19/16 at 09:01; Status DC Potassium Chloride 40 meq/ Sodium Chloride 1,020 ml @ 100 mls/hr [id number] IV Last administered on 10/17/16 22:37; Start 10/17/16 at 09:15; Stop 10/18/16 at 05: 38; Status DC Sodium Chloride (Iv Sodium Chloride 0.9% 1000ml Bag) 1,000 ml @ 100 mls/hr Q10H IV Last administered on 10/24/16 03:21; Start 10/18/16 at 06:00 Allopurinol (Zyloprim) 100 mg DAILY PO Last administered on 10/23/16 11:43; Start 10/17/16 at 10:30 Lidocaine/Sodium Bicarbonate (Buffered Lidocaine 1%) 20 ml 1X ONCE IJ Last administered on 10/18/16 11:54; Start 10/18/16 at 10:30; Stop 10/18/16 at 10:31; Status DC Midazolam HCl (Versed) 5 mg STK-MED ONCE .ROUTE ; Start 10/18/16 at 10:26; Stop 10/18/16 at 10:27; Status DC Fentanyl Citrate (Fentanyl 5ml Vial) 250 mcg STK-MED ONCE .ROUTE ; Start at 10:26; Stop 10/18/16 at 10:27; Status DC Midazolam HCl (Versed) 5 mg 1X ONCE IV Last administered on 10/18/16 11:55; Start 10/18/16 at 10:30; Stop 10/18/16 at 10:35; Status DC Fentanyl Citrate (Fentanyl 5ml Vial) 250 mcg 1X ONCE IV Last administered on 11:55; Start 10/18/16 at 10:30; Stop 10/18/16 at 10:35; Status DC Heparin Sodium (Porcine) (Hep Lock Adult) 500 unit STK-MED ONCE IV ; Start at 11:02; Stop 10/18/16 at 11:03; Status DC Lidocaine/ Epinephrine 20 ml 20 ml STK-MED ONCE .ROUTE ; Start 10/18/16 at 11:02 ; Stop 10/18/16 at 11:03; Status DC Heparin Sodium/ Sodium Chloride 500 ml @ As Directed STK-MED ONCE .ROUTE ; Start 10/18/16 at 11:02; Stop 10/18/16 at 11:03; Status DC Vancomycin HCl 250 ml @ As Directed STK-MED ONCE .ROUTE ; Start 10/18/16 at 11: 02; Stop 10/18/16 at 11:03; Status DC Cefazolin Sodium (Ancef 1gm Ivpb For Omni) 50 ml @ As Directed STK-MED ONCE IV ; Start 10/18/16 at 11:18; Stop 10/18/16 at 11:19; Status DC Heparin Sodium/ Sodium Chloride 1000 unit 1,000 unit 1X ONCE IART Last administered on 10/18/16 11:53; Start 10/18/16 at 11:30; Stop 10/18/16 at 11:35; Status DC Cefazolin Sodium 50 ml @ 100 mls/hr 1X ONCE IV Last administered on 10/18/16 11:59; Start 10/18/16 at 11:30; Stop 10/18/16 at 11:59; Status DC Vancomycin HCl 250 ml @ 250 mls/hr 1X ONCE IRR Last administered on 10/18/16 11:54; Start 10/18/16 at 11:30; Stop 10/18/16 at 12:29; Status DC Heparin Sodium (Porcine) (Hep Lock Adult) 500 unit 1X ONCE IV Last administered on 10/18/16 11:59; Start 10/18/16 at 11:30; Stop 10/18/16 at 11:35; Status DC Lidocaine/ Epinephrine 20 ml 20 ml 1X ONCE IJ Last administered on 10/18/16 11 :56; Start 10/18/16 at 11:30; Stop 10/18/16 at 11:35; Status DC Rituximab 775 mg/ Sodium Chloride 852.5 ml @ 213.125 mls/hr 1X ONCE IV Last administered on 10/19/16 12:00; Start 10/19/16 at 11:30; Stop 10/19/16 at 15:29; Status DC Cyclophosphamide 1500 mg/Sodium Chloride 250 ml @ 500 mls/hr ONCE ONCE IV Last administered on 10/19/16 10:13; Start 10/19/16 at 09:00; Stop 10/19/16 at 09: 29; Status DC Doxorubicin HCl 100 mg/ Miscellaneous 50 ml @ 600 mls/hr ONCE ONCE IV Last administered on 10/19/16 11:11; Start 10/19/16 at 09:00; Stop 10/19/16 at 09:04; Status DC Vincristine Sulfate/Sodium Chloride (Oncovin/Iv Sodium Chloride 0.9% 50ml) 50 ml @ 275 mls/hr ONCE ONCE IV Last administered on 10/19/16 11:14; Start at 09:00; Stop 10/19/16 at 09:10; Status DC Tbo-Filgrastim (Granix) 480 mcg QHS SQ Last administered on 10/23/16 20:44; Start 10/20/16 at 21:00; Stop 10/29/16 at 23:00 Acetaminophen (Tylenol) 650 mg ONCE ONCE PO Last administered on 10/19/16 11: 16; Start 10/19/16 at 11:30; Stop 10/19/16 at 11:31; Status DC Diphenhydramine HCl 50 mg 50 mg ONCE ONCE PO Last administered on 10/19/16 11: 16; Start 10/19/16 at 11:00; Stop 10/19/16 at 11:01; Status DC Ondansetron HCl/ Sodium Chloride (Zofran/Iv Sodium Chloride 0.9% 50ml) 56 ml @ 112 mls/hr ONCE ONCE IV Last administered on 10/19/16 09:06; Start 10/19/16 at 08:30; Stop 10/19/16 at 08:59; Status DC Ondansetron HCl (Zofran) 4 mg PRN Q4HRS PRN IV NAUSEA/VOMITING; Start 10/18/16 at 14:45 Prednisone (Prednisone) 100 mg DAILY PO Last administered on 10/23/16 11:43; Start 10/19/16 at 09:00; Stop 10/23/16 at 09:01; Status DC Dexamethasone 20 mg 20 mg 1X ONCE PO Last administered on 10/19/16 09:07; Start 10/19/16 at 08:30; Stop 10/19/16 at 08:31; Status DC Magnesium Sulfate/ Dextrose 50 ml @ 25 mls/hr 1X ONCE IV Last administered on 10/19/16 06:05; Start 10/19/16 at 05:45; Stop 10/19/16 at 07:44; Status DC Potassium Chloride (KCl Premix 20meq) 50 ml @ 25 mls/hr Q2HR IV Last administered on 10/20/16 18:15; Start 10/20/16 at 16:00; Stop 10/20/16 at 19:59 ; Status DC Magnesium Hydroxide (Milk Of Magnesia) 2,400 mg PRN DAILY PRN PO CONSTIPATION Last administered on 10/22/16 09:12; Start 10/21/16 at 16:30 Sodium Biphosphate/ Sodium Phosphate (Fleet Adult) 133 ml 1X ONCE W[place] Last administered on 10/21/16 18:03; Start 10/21/16 at 16:45; Stop 10/21/16 at 16:46 ; Status DC Senna/Docusate Sodium (Senna Plus) 2 tab PRN BID PRN PO CONSTIPATION Last administered on 10/22/16 16:10; Start 10/22/16 at 14:45 Polyethylene Glycol (miraLAX Powder BULK BOTTLE) 238 gm 1X ONCE PO ; Start 08/26 at 15:00; Stop 10/22/16 at 15:01; Status DC Ondansetron HCl (Zofran) 4 mg PRN Q6HRS PRN IV Nausea; Start 10/24/16 at 07:00 ; Stop 10/24/16 at 23:00 Fentanyl Citrate (Fentanyl 2ml Vial) 25 mcg PRN Q5MIN PRN IV MILD PAIN; Start 10/24/16 at 07:00; Stop 10/24/16 at 23:00 Fentanyl Citrate (Fentanyl 2ml Vial) 50 mcg PRN Q5MIN PRN IV MODERATE PAIN; Start 10/24/16 at 07:00; Stop 10/24/16 at 23:00 Morphine Sulfate 1 mg 1 mg PRN Q10MIN PRN IV SEVERE PAIN; Start 10/24/16 at 07: 00; Stop 10/24/16 at 23:00 Lactated Ringer's (Iv Lactated Ringers) 1,000 ml @ 30 mls/hr Q24H IV ; Start at 07:00; Stop 10/24/16 at 18:59 Lidocaine HCl 2 ml 1X PRN PRN ID IV START; Start 10/24/16 at 07:00; Stop at 23:00 Hydromorphone HCl (Dilaudid) 0.5 mg PRN Q10MIN PRN IV SEVERE PAIN, Second choice; Start 10/24/16 at 07:00; Stop 10/24/16 at 23:00 Prochlorperazine Edisylate (Compazine) 5 mg PACU PRN PRN IV NAUSEA; Start 10/24 at 07:00; Stop 10/24/16 at 23:00 Active Scripts Active Reported Fenofibrate (Fenofibrate Nanocrystallized) 145 Mg Tablet 1 Tab PO DAILYWLUN Potassium Chloride 20 Meq Tablet.er 20 Meq PO DAILYWSUP Calcium (Calcium Carbonate) 600 Mg Tablet 600 Mg PO Vytorin 10-80 Mg Tablet (Ezetimibe/Simvastatin) 1 Each Tablet 1 Each PO HS Multi-Vitamin Daily (Multivitamin) 1 Each Tablet 1 Each PO DAILY Vitamin D3 (Cholecalciferol (Vitamin D3)) 5,000 Unit Tablet 1 Tab PO DAILY Pradaxa (Dabigatran Etexilate Mesylate) 150 Mg Capsule 1 Cap PO BID Zoloft (Sertraline Hcl) 50 Mg Tablet 1 Tab PO HS Tamsulosin Hcl 0.4 Mg Cap.er.24h 1 Cap PO HS Losartan Potassium 100 Mg Tablet 100 Mg PO HS Klor-Con M20 (Potassium Chloride) 20 Meq Tab.er.prt 1 Tab PO DAILY Spironolactone 25 Mg Tablet 1 Tab PO DAILY Aspirin 81 Mg Tab.chew 1 Tab PO DAILY Carvedilol 25 Mg Tablet 1 Tab PO BID Vitals/I & O Vital Sign - Last 24 Hours 10/23/16 10/23/16 10/23/16 10/23/16 11:00 11:43 15:00 17:32 Temp 97.5 97.4 97.5 97.4 Pulse 85 82 82 Resp 16 18 B/P 150/81 138/90 142/83 142/83 Pulse Ox 95 94 O2 Delivery Room Air Room Air 10/23/16 10/23/16 10/23/16 10/23/16 17:33 18:40 19:00 20:20 Temp 97.4 97.4 Pulse 108 Resp 18 18 22 B/P 157/101 Pulse Ox 95 O2 Delivery Room Air Room Air Room Air Room Air 10/23/16 10/23/16 10/24/16 10/24/16 20:45 23:00 03:49 07:00 Temp 97.4 97.9 97.9 97.4 97.9 97.9 Pulse 108 101 97 100 Resp 18 B/P 157/101 128/91 139/85 148/103 Pulse Ox 93 94 95 O2 Delivery Room Air Room Air Room Air 10/24/16 09:14 Pulse 100 B/P 148/103 Intake and Output 10/23/16 10/23/16 10/24/16 15:00 23:00 07:00 Output Total 600 ml 700 ml 250 ml Balance -600 ml -700 ml -250 ml AYALA LYMAN MD Oct 24, 2016 10:00
[2016-10-24] MEDS ORDERED: KETAMINE HCL 500 MG/10 ML VIAL. ONE (12:17)
[2016-10-24] MEDS ORDERED: MIDAZOLAM HCL 2 MG/2 ML VIAL. ONE (12:17)
[2016-10-24] MEDS ORDERED: FENTANYL PF 100 MCG/2 ML VIAL. ONE (12:17)
[2016-10-24] MEDS ORDERED: LIDOCAINE 2% 20 ML VIAL. ONE (12:33)
[2016-10-24] MEDS ORDERED: IOHEXOL 300 MG/ML 100ML VIAL. ONE (12:33)
[2016-10-24] MEDS ORDERED: IOHEXOL 300 MG/ML 100ML VIAL. IART ONE (13:00)
[2016-10-24] MEDS ORDERED: CONTRAST GIVEN MC PRN (13:00)
[2016-10-24] MEDS ORDERED: LIDOCAINE 2% 20 ML VIAL. IJ ONE (13:00)
--- NOTE | 2016-10-24 13:54 | PDOC ---
Exam Senior Design Engineering Specialist Senior Design Engineering Specialist Elizabeth Form Carpenter Form Carpenter Anya Herron Pre-Procedure Diagnosis Pre-Procedure Diagnosis Large B cell lymphoma, with bulky RP adenopathy, producing bilateral ureteral obstruction. S/P bilateral PCN drain insertion 10/13/16---conversion to internal ureteral stents indicated Post-Procedure Diagnosis Post-Procedure Diagnosis Same Procedure Performed Procedure Performed Fluoro guided antegrade insertion of bilateral internal ureteral stents, via existing PCN tracts. Temporary replacement of bilateral PCN drains, to be clamped overnight---PCN removal tomorrow if no overnight issues. Type of Anesthesia Type of Anesthesia MAC by anesthesia Estimated Blood Loss EBL: Trace Specimens Specimans Bilateral 10 F PCN tubes removed and discarded Drain/Tubes Drains/Tubes Bilateral 8F 24 cm internal ureteral stents. Bilateral 8F PCN drains--clamped---removal tomorrow if no overnight issues. Condition of Patient Condition of Patient Stable. No apparent complication. Disposition Disposition From IR to PACU for recovery, then return to 432 if no problems. Bilateral 8F PCN drains temporarily placed--clamped overnight--removal tomorrow if no flank pain or other issues. F/u with Dr Chung and Dr Ross. Future cystoscopic Internal ureteral stent removal to be determined by Dr Griggs. Full report to follow. SVEN CANALES MD Oct 24, 2016 13:54
[2016-10-24] MEDS: HYDROCODONE/APAP 5/325MG TABLET. PO PRN ×2 (16:28→20:55)
[2016-10-24] MEDS: FENTANYL PF 100 MCG/2 ML VIAL. IV PRN ×2 (16:28→19:30)
[2016-10-24] MEDS: TBO-FILGRASTIM 480 MCG/0.8 ML SYRINGE. SQ SCH (20:55)
[2016-10-24] MEDS: LOSARTAN POTASSIUM 50 MG TABLET. PO SCH (20:55)
[2016-10-24] MEDS: SERTRALINE 50 MG TABLET. PO SCH (20:55)
[2016-10-24] MEDS: TAMSULOSIN 0.4 MG CAP.ER.24H. PO SCH (20:55)
[2016-10-24] MEDS: EZETIMIBE 10 MG TABLET PO SCH (20:55)
[2016-10-24] MEDS: SIMVASTATIN 40 MG TABLET. PO SCH (20:55)
[2016-10-25 03:12] VITALS: BP 141/97
[2016-10-25] MEDS: LEVOFLOXACIN 250 MG TABLET. PO SCH (05:21)
[2016-10-25] MEDS: IV NORMAL SALINE 1000ML BAG 1,000 ML IV SCH (05:23)
[2016-10-25 06:15] LABS: ALBUMIN 2.2 g/dL (3.4-5.0); CALCIUM 8.5 mg/dL (8.5-10.1); CREATININE 1.4 mg/dL (0.7-1.3); GFR 48.4; PHOSPHORUS 2.5 mg/dL (2.6-4.7); POTASSIUM 3.1 mmol/L (3.5-5.1)
[2016-10-25 07:00] VITALS: BP 157/85
--- NOTE | 2016-10-25 07:52 | RAD ---
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 Associated bulky retroperitoneal lymphadenopathy has resulted in bilateral ureteral obstruction and renal failure. He is status post bilateral percutaneous nephrostomy drain insertion. Conversion from nephrostomy tubes to internal ureteral stents has been requested. Fluoroscopy time: 14.8 minutes Kerma-area Product: 50 Gycm2 Contrast material: 40 cc Omnipaque 300 Anesthesia: Mac anesthesia was provided by the department of anesthesiology. Antibiotic: A single dose of Levaquin was given IV within one hour of the procedure start time. Levaquin was considered superior to cephalosporin for this percutaneous urology procedure. Consent: The procedure was explained in its entirety to the patient and/or the patient's designated corporate representative by a member of the treatment team. This included a discussion of risks and benefits and commonly accepted alternatives to the procedure, as well as expected consequences of no treatment at all. Discussion of risks included, but was not limited to, those that are most frequent and those that are rare, but possibly severe or life-threatening, as well as the possibility of unforeseen complications. Sterility: All elements of maximal sterile barrier technique were utilized, including cap, mask, sterile gown, sterile gloves, large sterile sheet, appropriate hand hygiene, and 2% chlorhexidine for cutaneous antisepsis. Procedure: Informed consent was obtained from the patient. He was placed prone on the angiography table. Bilateral flank were prepped and draped in the usual sterile fashion, utilizing all elements of maximal sterile barrier technique, as described above. Mac anesthesia was provided by the department of anesthesiology. 250 mg Levaquin was given IV, prophylactically. Right side: Using aseptic technique, a small amount of dilute Omnipaque was slowly injected through the indwelling 10 [place] right percutaneous nephrostomy drain. Fluoroscopic spot images were obtained. Those images revealed resolution of right hydronephrosis. Contrast opacified right ureter is displaced by bulky retroperitoneal lymphadenopathy within upper pelvis. More distal right ureter is small in caliber and poorly opacified. No antegrade flow of injected contrast material was identified into urinary bladder. Using aseptic technique and fluoroscopic guidance, the 10 [place] right percutaneous nephrostomy drain was then exchanged over a Pena wire for a 4 [place] angled glide catheter, which was easily advanced through right renal collecting system into mid right ureter. The Pena wire was then exchanged for a [employer] advantage guidewire. The angled glide catheter/advantage guidewire combination was then easily advanced across distal right ureter into urinary bladder. The angled glide catheter was then removed over a stiff Glidewire, which left with its tip coiled within urinary bladder. A 7 [place] 23 cm long sheath was then introduced over the stiff Glidewire and was advanced into mid right ureter. A 0.035 inch J safety guidewire was then inserted through the 7 [place] sheath and was positioned with its tip within mid right ureter. The 7 [place] sheath was then removed over both guidewires. Using fluoroscopic guidance, and 8 [place] 24 cm internal ureteral stent was then introduced over the stiff Glidewire. Distal tip of the internal ureteral stent was coiled within urinary bladder. Proximal tip of the internal ureteral stent was inadvertently positioned slightly low, partially coiled at the level of the UPJ. An 8 [place] percutaneous nephrostomy drain was then advanced over the safety 3 J-wire, and was coiled within right renal pelvis. Dilute Omnipaque was then injected through the nephrostomy tube and completion spot images were obtained, documenting satisfactory function of the internal ureteral stent. The nephrostomy tube was then capped and was secured at the right flank exit site utilizing suture and sterile dressing. Left side: Using aseptic technique, a small amount of dilute Omnipaque was slowly injected through the indwelling 10 [place] left percutaneous nephrostomy tube. Fluoroscopic spot images were obtained. Those images revealed resolution of left hydronephrosis. Contrast opacified left ureter is displaced by retroperitoneal lymphadenopathy at the level of upper pelvis. There was absent opacification of distal left ureter, without antegrade flow of injected contrast material into urinary bladder. Using aseptic technique and fluoroscopic guidance, the 10 [place] percutaneous nephrostomy tube was removed over a Pena wire, which was easily advanced through left renal collecting system into mid left ureter. A 7 [place] 23 cm long sheath was then advanced over the Pena wire into mid left ureter. A 4 [place] angled glide catheter was then inserted through the 7 [place] sheath and was easily advanced across left ureter into urinary bladder over a stiff Glidewire. The angle glide catheter was removed. The stiff Glidewire was left in place, coiled within urinary bladder. An additional 3J safety guidewire was then inserted through the 7 [place] sheath, and was positioned within mid left ureter. The 7 [place] sheath was then removed over the 2 guidewires. Under fluoroscopic guidance, an 8 [place] 24 cm long internal ureteral stent was then easily advanced over the stiff Glidewire. Distal loop of the internal stent was coiled within urinary bladder. Proximal loop of the internal stent was coiled within left renal pelvis. An 8 [place] percutaneous nephrostomy drain was then inserted over the 3J safety wire, and was coiled within left renal pelvis. Dilute Omnipaque was then injected through the nephrostomy tube and completion spot images were obtained, documenting satisfactory function of the left internal ureteral stent. The nephrostomy tube was then capped and was secured at the left flank exit site utilizing suture and sterile dressing. Patient tolerated the procedure well without apparent complication. He was transported from the angiography suite to the postanesthesia care unit in stable condition. Impression: 1. Successful, uneventful fluoroscopy guided antegrade insertion of bilateral internal ureteral stents, via existing percutaneous nephrostomy tube tracts, as described. 2. Bilateral 8 [place]ian percutaneous nephrostomy drains were temporarily replaced, and were capped. If the patient experiences no overnight flank pain, the bilateral nephrostomy tubes will be removed.
[2016-10-25] MEDS: ALLOPURINOL 100 MG TABLET. PO SCH (08:58)
[2016-10-25] MEDS: MULTIVITAMIN with MINERAL TABLET. PO SCH (08:58)
[2016-10-25] MEDS: CHOLECALCIFEROL (VITAMIN D3) 5,000 UNIT CAPSULE PO SCH (08:58)
[2016-10-25] MEDS: HYDROCODONE/APAP 5/325MG TABLET. PO PRN (08:58)
[2016-10-25] MEDS: FENOFIBRATE,MICRONIZED 134 MG CAPSULE PO SCH (08:59)
[2016-10-25] MEDS: CARVEDILOL 12.5 MG TABLET PO SCH (08:59)
--- NOTE | 2016-10-25 09:52 | PDOC ---
PROGRESS NOTES Subjective Subjective Pt awake and pleasant. States he is feeling well other than extreme weakness. Pt states he is eating and drinking well with good output. Objective Objective Pt awake and alert. NAD. VSS. Afebrile. Lungs CTA bilat. Resp even and unlabored. Heart with RRR. No murmurs. 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 -Echo 10/11/16 reveals normal EF 60-65%. -s/p CT-guided biopsy of this mass 10/13/16 -CT neck/chest 10/17/15: revealed cervical LN. -Bone scan 10/17/15: No definite evidence of metastatic disease. Increased uptake in the pelvis compatible and left clavicle compatible with Paget's changes. Intense uptake at L2 compatible with the known fracture at this level. Mild uptake at T6 suggesting an old compression fracture pending. -Portacath and bone marrow bx 10/18/16 -Chemo initiated 10/19/16. Pt tolerated well. 2. Acute renal failure -Creat 5.5 upon admission, 1.4 this am. Baseline 1.4 -Renal US: Left greater than right hydronephrosis with small left renal cyst -Renal team consulting -Coleman placed -Uretal stenting attempted on 10/12, unsuccessful d/t prostate bleeding. Prodaxa stopped and reversal agent given. No additional bleeding. Hgb stable -Bilat nephrostomy tubes placed. Tubes removed on 10/24 and stents placed. -Pt will require nephrostomy stents in place till abdominal tumor shrinks. Onc optimistic for rapid response with chemo, possibly 2-3 weeks. 3. Hyperkalemia, now hypokalemia. -K 5.9 upon admission, 5.0 this am following Kayexalate dosing. 3.1 this am. -Start 20mEq of KCl -Recheck BMP as outpt on 10/27 4. Hypercalcemia, resolved -Ca 14.4 upon admission, 11.9 following Miacalcin x3. 9.2 this am -secondary to malignancy 5. Candy Cutter Hand fall with Paget's disease -Hematoma present on left forehead -pt with c/o back pain -spine x-rays: L2 and L3 vertebral compression fractures of indeterminate ages. Probable associated spinal stenosis at L2-3 due to retropulsion at the L2 fracture site. Moderate multilevel degenerative change. Distal abdominal aortic aneurysm. -bone scan: Increased uptake in the pelvis compatible and left clavicle compatible with Paget's changes. Intense uptake at L2 compatible with the known fracture at this level. Mild uptake at T6 suggesting an old compression fracture pending. 6. Leukocytosis -23.6K on 10/21. 18.9K this am -Secondary to Neupogen. Neupogen to be continued through 10/30 per Oncology. Dc today to [facility]. Regular diet. Activity as tolerated. PT/OT eval and treat . CBC and CMP on 10/27. F/u with Oncology, Dr Ross, per his recommendation. Comment Review of Relevant I have reviewed the following items juan (where applicable) has been applied. Labs Laboratory Tests Test 10/24/16 05:30 10/25/16 05:20 White Blood Count 18.9x10^3/uL (4.0-11.0) Red Blood Count 2.73x10^6/uL (4.30-5.70) Hemoglobin 8.2g/dL (13.0-17.5) Hematocrit 25.3% (39.0-53.0) Mean Corpuscular Volume 93fL (79-100) Mean Corpuscular Hemoglobin 30pg (25-35) Mean Corpuscular Hemoglobin Concent 32g/dL (31-37) Red Cell Distribution Width 14.6% (11.5-14.5) Platelet Count 105x10^3/uL (140-400) Sodium Level 145mmol/L (136-145) 145mmol/L (136-145) Potassium Level 3.6mmol/L (3.5-5.1) 3.1mmol/L (3.5-5.1) Chloride Level 110mmol/L (98-107) 111mmol/L (98-107) Carbon Dioxide Level 26mmol/L (21-32) 25mmol/L (21-32) Anion Gap 9 (6-14) 9 (6-14) Blood Urea Nitrogen 44mg/dL (8-26) 41mg/dL (8-26) Creatinine 1.4mg/dL (0.7-1.3) 1.4mg/dL (0.7-1.3) Estimated GFR (Cockcroft-Gault) 48.4 48.4 Glucose Level 110mg/dL (70-99) 89mg/dL (70-99) Calcium Level 9.2mg/dL (8.5-10.1) 8.5mg/dL (8.5-10.1) Phosphorus Level 3.1mg/dL (2.6-4.7) 2.5mg/dL (2.6-4.7) Albumin 2.3g/dL (3.4-5.0) 2.2g/dL (3.4-5.0) Laboratory Tests Test 10/25/16 05:20 Sodium Level 145mmol/L (136-145) Potassium Level 3.1mmol/L (3.5-5.1) Chloride Level 111mmol/L (98-107) Carbon Dioxide Level 25mmol/L (21-32) Anion Gap 9 (6-14) Blood Urea Nitrogen 41mg/dL (8-26) Creatinine 1.4mg/dL (0.7-1.3) Estimated GFR (Cockcroft-Gault) 48.4 Glucose Level 89mg/dL (70-99) Calcium Level 8.5mg/dL (8.5-10.1) Phosphorus Level 2.5mg/dL (2.6-4.7) Albumin 2.2g/dL (3.4-5.0) Medications Current Medications Sodium Chloride 1,000 ml @ 100 mls/hr Q10H IV Last administered on 10/11/16t 08 :49; Start 10/10/16 at 11:00; Stop 10/11/16 at 21:27; Status DC Magnesium Sulfate/ Dextrose (Magnesium Sulfate PREMIX 2GM) 50 ml @ 25 mls/hr PRN DAILY PRN IV for Mag < 1.7 on am labs Last administered on 10/14/16 13:04; Start 10/10/16 at 13:30; Stop 10/16/16 at 16:08; Status DC Sodium Polystyrene Sulfonate (Kayexalate) 45 gm 1X ONCE PO Last administered on 10/10/16 15:07; Start 10/10/16 at 13:30; Stop 10/10/16 at 13:44; Status DC Aspirin (Children'S Aspirin) 81 mg DAILY08 PO Last administered on 10/12/16 08: 47; Start 10/10/16 at 14:00; Stop 10/12/16 at 19:37; Status DC Dabigatran (Pradaxa) 150 mg BID PO Last administered on 10/10/16 21:48; Start 10/10/16 at 21:00; Stop 10/11/16 at 08:25; Status DC Potassium Chloride (Klor-Con) 20 meq DAILYWSUP PO ; Start 10/10/16 at 17:00; Stop 10/10/16 at 17:00; Status DC Sertraline HCl (Zoloft) 50 mg HS PO Last administered on 10/24/16 20:55; Start 10/10/16 at 21:00 Spironolactone (Aldactone) 25 mg DAILY PO ; Start 10/10/16 at 14:00; Stop at 14:17; Status DC Tamsulosin HCl (Flomax) 0.4 mg HS PO Last administered on 10/24/16 20:55; Start 10/10/16 at 21:00 Carvedilol (Coreg) 25 mg BIDWMEALS PO Last administered on 10/25/16 08:59; Start 10/10/16 at 17:00 Vitamin D (Vitamin D3) 5,000 unit DAILY PO Last administered on 10/25/16 08:58 ; Start 10/10/16 at 14:00 EZETIMIBE (Zetia) 10 mg DAILY PO ; Start 10/10/16 at 14:00; Stop 10/10/16 at 21: 00; Status Cancel Fenofibrate (Lofibra) 134 mg DAILY PO Last administered on 10/25/16 08:59; Start 10/10/16 at 14:00 Losartan Potassium (Cozaar) 100 mg QHS PO Last administered on 10/24/16 20:55 ; Start 10/10/16 at 21:00 Multivitamins/ Calcium (Thera M Plus) 1 tab DAILY PO Last administered on 08:58; Start 10/10/16 at 14:00 Non-Formulary Medication 20 meq DAILYWSUP PO ; Start 10/10/16 at 17:00; Status UNV Simvastatin (Zocor) 80 mg QHS PO Last administered on 10/24/16 20:55; Start at 21:00 Calcitonin [place] (Miacalcin) 400 unit BID SQ Last administered on 10/12/16 08: 51; Start 10/10/16 at 21:00; Stop 10/12/16 at 23:52; Status DC Info (Anti-Coagulation Monitoring By Pharmacy) 1 each PRN DAILY PRN MC SEE COMMENTS Last administered on 10/11/16 08:28; Start 10/10/16 at 14:45; Stop 10/13 at 09:44; Status DC Ondansetron HCl (Zofran) 4 mg PRN Q6HRS PRN IV NAUSEA/VOMITING; Start 10/10/16 at 15:30; Status Cancel EZETIMIBE (Zetia) 10 mg HS PO Last administered on 10/24/16 20:55; Start 10/10 at 21:00 Dabigatran (Pradaxa) 75 mg BID PO Last administered on 10/11/16 10:03; Start at 09:00; Stop 10/12/16 at 14:56; Status DC Ondansetron HCl (Zofran) 4 mg PRN Q6HRS PRN IV Nausea; Start 10/12/16 at 09:30; Stop 10/13/16 at 09:29; Status DC Fentanyl Citrate (Fentanyl 2ml Vial) 25 mcg PRN Q5MIN PRN IV MILD PAIN; Start 10/12/16 at 09:30; Stop 10/13/16 at 09:29; Status DC Fentanyl Citrate (Fentanyl 2ml Vial) 50 mcg PRN Q5MIN PRN IV MODERATE PAIN; Start 10/12/16 at 09:30; Stop 10/13/16 at 09:29; Status DC Morphine Sulfate 1 mg 1 mg PRN Q10MIN PRN IV SEVERE PAIN; Start 10/12/16 at 09: 30; Stop 10/13/16 at 09:29; Status DC Lactated Ringer's (Iv Lactated Ringers) 1,000 ml @ 0 mls/hr Q0M IV Last administered on 10/12/16 12:43; Start 10/12/16 at 09:29; Stop 10/12/16 at 21:28; Status DC Lidocaine HCl 2 ml 1X PRN PRN ID IV START; Start 10/12/16 at 09:30; Stop at 09:29; Status DC Hydromorphone HCl (Dilaudid) 0.5 mg PRN Q10MIN PRN IV SEV PAIN,Second choice; Start 10/12/16 at 09:30; Stop 10/13/16 at 09:29; Status DC Prochlorperazine Edisylate 5 mg 5 mg PACU PRN PRN IV NAUSEA; Start 10/12/16 at 09:30; Stop 10/13/16 at 09:29; Status DC Levofloxacin/ Dextrose (LEVAQUIN 250mg PREMIX) 50 ml @ 50 mls/hr Q24H IV Last administered on 10/15/16 08:39; Start 10/12/16 at 10:00; Stop 10/15/16 at 15:52; Status DC Iohexol 50 ml 50 ml STK-MED ONCE .ROUTE ; Start 10/12/16 at 11:38; Stop 10/12/16 at 11:39; Status DC Propofol (Diprivan) 20 ml @ As Directed STK-MED ONCE IV ; Start 10/12/16 at 12:25 ; Stop 10/12/16 at 12:26; Status DC Lidocaine HCl 100 mg STK-MED ONCE .ROUTE ; Start 10/12/16 at 12:25; Stop 10/12/16 at 12:26; Status DC Dexamethasone Sodium Phosphate (Decadron) 20 mg STK-MED ONCE .ROUTE ; Start 10/12 at 12:25; Stop 10/12/16 at 12:26; Status DC Ondansetron HCl (Zofran) 4 mg STK-MED ONCE .ROUTE ; Start 10/12/16 at 12:25; Stop 10/12/16 at 12:26; Status DC Fentanyl Citrate (Fentanyl 2ml Vial) 100 mcg STK-MED ONCE .ROUTE ; Start at 12:25; Stop 10/12/16 at 12:26; Status DC Phenylephrine HCl 1 mg STK-MED ONCE IV ; Start 10/12/16 at 13:59; Stop 10/12/16 at 14:00; Status DC Apixaban (Eliquis) 2.5 mg BID PO ; Start 10/12/16 at 21:00; Stop 10/12/16 at 21:00 ; Status DC Idarucizumab (Praxbind) 5 gm 1X ONCE IV Last administered on 10/12/16 16:48; Start 10/12/16 at 16:30; Stop 10/12/16 at 16:31; Status DC Heparin Sodium (Porcine) 10,000 unit STK-MED ONCE .ROUTE ; Start 10/12/16 at 15: 40; Stop 10/12/16 at 15:41; Status DC Lidocaine HCl 20 ml 20 ml STK-MED ONCE .ROUTE ; Start 10/12/16 at 15:40; Stop 10/12/16 at 15:41; Status DC Heparin Sodium/ Sodium Chloride 500 ml @ As Directed STK-MED ONCE .ROUTE ; Start 10/12/16 at 15:40; Stop 10/12/16 at 15:41; Status DC Lidocaine/ Epinephrine (Xylocaine 1%-Epi 1:100,000) 20 ml STK-MED ONCE .ROUTE ; Start 10/12/16 at 15:43; Stop 10/12/16 at 15:44; Status DC Heparin Sodium (Porcine) 2,400 unit 1X ONCE INT CAT Last administered on 16:27; Start 10/12/16 at 16:30; Stop 10/12/16 at 16:31; Status DC Heparin Sodium/ Sodium Chloride 6 unit 1X ONCE IV Last administered on 16:27; Start 10/12/16 at 16:30; Stop 10/12/16 at 16:31; Status DC Lidocaine/ Epinephrine 2 ml 2 ml 1X ONCE IJ Last administered on 10/12/16 16: 28; Start 10/12/16 at 16:30; Stop 10/12/16 at 16:31; Status DC Sodium Chloride (Iv Sodium Chloride 0.9% 1000ml Bag) 1,000 ml @ 1,000 mls/hr Q1H PRN IV hypotension; Start 10/12/16 at 17:48; Stop 10/12/16 at 23:47; Status DC Diphenhydramine HCl (Benadryl) 25 mg 1X PRN PRN IV ITCHING; Start 10/12/16 at 18 :00; Stop 10/13/16 at 13:06; Status DC Diphenhydramine HCl (Benadryl) 25 mg 1X PRN PRN IV ITCHING; Start 10/12/16 at 18 :00; Stop 10/13/16 at 13:06; Status DC Sodium Chloride (Normal Saline Flush) 10 ml 1X PRN PRN IV AP catheter pack; Start 10/12/16 at 18:00; Stop 10/13/16 at 13:06; Status DC Sodium Chloride 10 ml 10 ml 1X PRN PRN IV MEDICAL CASH POSTER catheter pack; Start 10/12/16 at 18 :00; Stop 10/13/16 at 13:06; Status DC Sodium Chloride (Iv Sodium Chloride 0.9% 1000ml Bag) 1,000 ml @ 400 mls/hr Q2H30M PRN IV PATENCY; Start 10/12/16 at 17:48; Stop 10/13/16 at 05:47; Status DC Sodium Chloride (Normal Saline Flush) 10 ml 1X PRN PRN IV AP catheter pack; Start 10/13/16 at 11:00; Stop 10/13/16 at 18:00; Status DC Sodium Chloride (Normal Saline Flush) 10 ml 1X PRN PRN IV MEDICAL CASH POSTER catheter pack; Start 10/13/16 at 11:00; Stop 10/13/16 at 18:00; Status DC Info (PHARMACY MONITORING -- do not chart) 1 each PRN DAILY PRN MC SEE COMMENTS ; Start 10/13/16 at 11:00 Info (PHARMACY MONITORING -- do not chart) 1 each PRN DAILY PRN MC SEE COMMENTS ; Start 10/13/16 at 11:00; Stop 10/13/16 at 11:05; Status DC Lidocaine/Sodium Bicarbonate 20 ml 20 ml 1X ONCE IJ Last administered on t 16:23; Start 10/13/16 at 13:15; Stop 10/13/16 at 13:16; Status DC Levofloxacin/ Dextrose (LEVAQUIN 250mg PREMIX) 50 ml @ 100 mls/hr 1X ONCE IV Last administered on 10/13/16 16:25; Start 10/13/16 at 13:30; Stop 10/13/16 at 13: 59; Status DC Midazolam HCl (Versed) 2 mg STK-MED ONCE .ROUTE ; Start 10/13/16 at 14:03; Stop 10/13/16 at 14:04; Status DC Fentanyl Citrate (Fentanyl 2ml Vial) 100 mcg STK-MED ONCE .ROUTE ; Start at 14:03; Stop 10/13/16 at 14:04; Status DC Gelatin (Gelfoam Size 12-7mm) 1 each STK-MED ONCE .ROUTE ; Start 10/13/16 at 14: 44; Stop 10/13/16 at 14:45; Status DC Midazolam HCl (Versed) 2 mg 1X ONCE IV Last administered on 10/13/16 16:25; Start 10/13/16 at 15:00; Stop 10/13/16 at 15:01; Status DC Fentanyl Citrate (Fentanyl 2ml Vial) 100 mcg 1X ONCE IV Last administered on 16:26; Start 10/13/16 at 15:00; Stop 10/13/16 at 15:01; Status DC Fentanyl Citrate (Fentanyl 2ml Vial) 50 mcg PRN Q2HR PRN IV SEVERE PAIN Last administered on 10/24/16 19:30; Start 10/14/16 at 01:30 Levofloxacin (Levaquin) 250 mg DAILY06 PO Last administered on 10/25/16 05:21 ; Start 10/16/16 at 06:00 Acetaminophen/ Hydrocodone Bitart 1 tab 1 tab PRN Q4HRS PRN PO PAIN Last administered on 10/25/16 08:58; Start 10/15/16 at 17:45 Magnesium Sulfate/ Dextrose 50 ml @ 25 mls/hr PRN DAILY PRN IV for Mag < 1.7 on am labs Last administered on 10/17/16 10:26; Start 10/16/16 at 14:45 Potassium Chloride 50 ml @ 50 mls/hr PRN Q6HRS PRN IV For K < 3.7; Start at 14:45 Potassium Chloride (KCl Premix 20meq) 50 ml @ 50 mls/hr PRN Q2HR PRN IV total of 40mEq for K < 3.5; Start 10/16/16 at 14:45 Calcitonin [place] 400 unit 400 unit BID SQ Last administered on 10/19/16 13:50 ; Start 10/16/16 at 21:00; Stop 10/19/16 at 09:01; Status DC Potassium Chloride 40 meq/ Sodium Chloride 1,020 ml @ 100 mls/hr [id number] IV Last administered on 10/17/16 22:37; Start 10/17/16 at 09:15; Stop 10/18/16 at 05: 38; Status DC Sodium Chloride (Iv Sodium Chloride 0.9% 1000ml Bag) 1,000 ml @ 100 mls/hr Q10H IV Last administered on 10/25/16 05:23; Start 10/18/16 at 06:00 Allopurinol (Zyloprim) 100 mg DAILY PO Last administered on 10/25/16 08:58; Start 10/17/16 at 10:30 Lidocaine/Sodium Bicarbonate (Buffered Lidocaine 1%) 20 ml 1X ONCE IJ Last administered on 10/18/16 11:54; Start 10/18/16 at 10:30; Stop 10/18/16 at 10:31; Status DC Midazolam HCl (Versed) 5 mg STK-MED ONCE .ROUTE ; Start 10/18/16 at 10:26; Stop 10/18/16 at 10:27; Status DC Fentanyl Citrate (Fentanyl 5ml Vial) 250 mcg STK-MED ONCE .ROUTE ; Start at 10:26; Stop 10/18/16 at 10:27; Status DC Midazolam HCl (Versed) 5 mg 1X ONCE IV Last administered on 10/18/16 11:55; Start 10/18/16 at 10:30; Stop 10/18/16 at 10:35; Status DC Fentanyl Citrate (Fentanyl 5ml Vial) 250 mcg 1X ONCE IV Last administered on 11:55; Start 10/18/16 at 10:30; Stop 10/18/16 at 10:35; Status DC Heparin Sodium (Porcine) (Hep Lock Adult) 500 unit STK-MED ONCE IV ; Start at 11:02; Stop 10/18/16 at 11:03; Status DC Lidocaine/ Epinephrine 20 ml 20 ml STK-MED ONCE .ROUTE ; Start 10/18/16 at 11:02 ; Stop 10/18/16 at 11:03; Status DC Heparin Sodium/ Sodium Chloride 500 ml @ As Directed STK-MED ONCE .ROUTE ; Start 10/18/16 at 11:02; Stop 10/18/16 at 11:03; Status DC Vancomycin HCl 250 ml @ As Directed STK-MED ONCE .ROUTE ; Start 10/18/16 at 11: 02; Stop 10/18/16 at 11:03; Status DC Cefazolin Sodium (Ancef 1gm Ivpb For Omni) 50 ml @ As Directed STK-MED ONCE IV ; Start 10/18/16 at 11:18; Stop 10/18/16 at 11:19; Status DC Heparin Sodium/ Sodium Chloride 1000 unit 1,000 unit 1X ONCE IART Last administered on 10/18/16 11:53; Start 10/18/16 at 11:30; Stop 10/18/16 at 11:35; Status DC Cefazolin Sodium 50 ml @ 100 mls/hr 1X ONCE IV Last administered on 10/18/16 11:59; Start 10/18/16 at 11:30; Stop 10/18/16 at 11:59; Status DC Vancomycin HCl 250 ml @ 250 mls/hr 1X ONCE IRR Last administered on 10/18/16 11:54; Start 10/18/16 at 11:30; Stop 10/18/16 at 12:29; Status DC Heparin Sodium (Porcine) (Hep Lock Adult) 500 unit 1X ONCE IV Last administered on 10/18/16 11:59; Start 10/18/16 at 11:30; Stop 10/18/16 at 11:35; Status DC Lidocaine/ Epinephrine 20 ml 20 ml 1X ONCE IJ Last administered on 10/18/16 11 :56; Start 10/18/16 at 11:30; Stop 10/18/16 at 11:35; Status DC Rituximab 775 mg/ Sodium Chloride 852.5 ml @ 213.125 mls/hr 1X ONCE IV Last administered on 10/19/16 12:00; Start 10/19/16 at 11:30; Stop 10/19/16 at 15:29; Status DC Cyclophosphamide 1500 mg/Sodium Chloride 250 ml @ 500 mls/hr ONCE ONCE IV Last administered on 10/19/16 10:13; Start 10/19/16 at 09:00; Stop 10/19/16 at 09: 29; Status DC Doxorubicin HCl 100 mg/ Miscellaneous 50 ml @ 600 mls/hr ONCE ONCE IV Last administered on 10/19/16 11:11; Start 10/19/16 at 09:00; Stop 10/19/16 at 09:04; Status DC Vincristine Sulfate/Sodium Chloride (Oncovin/Iv Sodium Chloride 0.9% 50ml) 50 ml @ 275 mls/hr ONCE ONCE IV Last administered on 10/19/16 11:14; Start at 09:00; Stop 10/19/16 at 09:10; Status DC Tbo-Filgrastim (Granix) 480 mcg QHS SQ Last administered on 10/24/16 20:55; Start 10/20/16 at 21:00; Stop 10/29/16 at 23:00 Acetaminophen (Tylenol) 650 mg ONCE ONCE PO Last administered on 10/19/16 11: 16; Start 10/19/16 at 11:30; Stop 10/19/16 at 11:31; Status DC Diphenhydramine HCl 50 mg 50 mg ONCE ONCE PO Last administered on 10/19/16 11: 16; Start 10/19/16 at 11:00; Stop 10/19/16 at 11:01; Status DC Ondansetron HCl/ Sodium Chloride (Zofran/Iv Sodium Chloride 0.9% 50ml) 56 ml @ 112 mls/hr ONCE ONCE IV Last administered on 10/19/16 09:06; Start 10/19/16 at 08:30; Stop 10/19/16 at 08:59; Status DC Ondansetron HCl (Zofran) 4 mg PRN Q4HRS PRN IV NAUSEA/VOMITING; Start 10/18/16 at 14:45 Prednisone (Prednisone) 100 mg DAILY PO Last administered on 10/23/16 11:43; Start 10/19/16 at 09:00; Stop 10/23/16 at 09:01; Status DC Dexamethasone 20 mg 20 mg 1X ONCE PO Last administered on 10/19/16 09:07; Start 10/19/16 at 08:30; Stop 10/19/16 at 08:31; Status DC Magnesium Sulfate/ Dextrose 50 ml @ 25 mls/hr 1X ONCE IV Last administered on 10/19/16 06:05; Start 10/19/16 at 05:45; Stop 10/19/16 at 07:44; Status DC Potassium Chloride (KCl Premix 20meq) 50 ml @ 25 mls/hr Q2HR IV Last administered on 10/20/16 18:15; Start 10/20/16 at 16:00; Stop 10/20/16 at 19:59 ; Status DC Magnesium Hydroxide (Milk Of Magnesia) 2,400 mg PRN DAILY PRN PO CONSTIPATION Last administered on 10/22/16 09:12; Start 10/21/16 at 16:30 Sodium Biphosphate/ Sodium Phosphate (Fleet Adult) 133 ml 1X ONCE WV Last administered on 10/21/16 18:03; Start 10/21/16 at 16:45; Stop 10/21/16 at 16:46 ; Status DC Senna/Docusate Sodium (Senna Plus) 2 tab PRN BID PRN PO CONSTIPATION Last administered on 10/22/16 16:10; Start 10/22/16 at 14:45 Polyethylene Glycol (miraLAX Powder BULK BOTTLE) 238 gm 1X ONCE PO ; Start 08/26 at 15:00; Stop 10/22/16 at 15:01; Status DC Ondansetron HCl (Zofran) 4 mg PRN Q6HRS PRN IV Nausea; Start 10/24/16 at 07:00 ; Stop 10/24/16 at 23:00; Status DC Fentanyl Citrate (Fentanyl 2ml Vial) 25 mcg PRN Q5MIN PRN IV MILD PAIN; Start 10/24/16 at 07:00; Stop 10/24/16 at 23:00; Status DC Fentanyl Citrate (Fentanyl 2ml Vial) 50 mcg PRN Q5MIN PRN IV MODERATE PAIN Last administered on 10/24/16 14:22; Start 10/24/16 at 07:00; Stop 10/24/16 at 23:00; Status DC Morphine Sulfate 1 mg 1 mg PRN Q10MIN PRN IV SEVERE PAIN; Start 10/24/16 at 07: 00; Stop 10/24/16 at 23:00; Status DC Lactated Ringer's (Iv Lactated Ringers) 1,000 ml @ 30 mls/hr Q24H IV ; Start at 07:00; Stop 10/24/16 at 18:59; Status DC Lidocaine HCl 2 ml 1X PRN PRN ID IV START; Start 10/24/16 at 07:00; Stop at 23:00; Status DC Hydromorphone HCl (Dilaudid) 0.5 mg PRN Q10MIN PRN IV SEVERE PAIN, Second choice; Start 10/24/16 at 07:00; Stop 10/24/16 at 23:00; Status DC Prochlorperazine Edisylate (Compazine) 5 mg PACU PRN PRN IV NAUSEA; Start 10/24 at 07:00; Stop 10/24/16 at 23:00; Status DC Midazolam HCl (Versed) 2 mg STK-MED ONCE .ROUTE ; Start 10/24/16 at 12:17; Stop 10/24/16 at 12:18; Status DC Fentanyl Citrate (Fentanyl 2ml Vial) 100 mcg STK-MED ONCE .ROUTE ; Start at 12:17; Stop 10/24/16 at 12:18; Status DC Ketamine HCl 500 mg STK-MED ONCE .ROUTE ; Start 10/24/16 at 12:17; Stop at 12:18; Status DC Iohexol (Omnipaque 300 Mg/ml) 100 ml STK-MED ONCE .ROUTE ; Start 10/24/16 at 12: 33; Stop 10/24/16 at 12:34; Status DC Lidocaine HCl 20 ml 20 ml STK-MED ONCE .ROUTE ; Start 10/24/16 at 12:33; Stop at 12:34; Status DC Heparin Sodium/ Sodium Chloride 500 ml @ As Directed STK-MED ONCE .ROUTE ; Start 10/24/16 at 12:33; Stop 10/24/16 at 12:34; Status DC Levofloxacin/ Dextrose (LEVAQUIN 500mg PREMIX) 100 ml @ As Directed STK-MED ONCE IV ; Start 10/24/16 at 12:40; Stop 10/24/16 at 12:41; Status DC Heparin Sodium/ Sodium Chloride 1,000 unit 1X ONCE IART Last administered on t 13:00; Start 10/24/16 at 13:00; Stop 10/24/16 at 13:01; Status DC Iohexol (Omnipaque 300 Mg/ml) 100 ml 1X ONCE IART Last administered on t 13:00; Start 10/24/16 at 13:00; Stop 10/24/16 at 13:01; Status DC Lidocaine HCl 20 ml 1X ONCE IJ Last administered on 10/24/16 13:00; Start at 13:00; Stop 10/24/16 at 13:01; Status DC Info (Do NOT chart on this entry -- for MONITORING) 1 each PRN DAILY PRN MC SEE COMMENTS; Start 10/24/16 at 13:00; Stop 10/26/16 at 12:59 Active Scripts Active Reported Fenofibrate (Fenofibrate Nanocrystallized) 145 Mg Tablet 1 Tab PO DAILYWLUN Potassium Chloride 20 Meq Tablet.er 20 Meq PO DAILYWSUP Calcium (Calcium Carbonate) 600 Mg Tablet 600 Mg PO Vytorin 10-80 Mg Tablet (Ezetimibe/Simvastatin) 1 Each Tablet 1 Each PO HS Multi-Vitamin Daily (Multivitamin) 1 Each Tablet 1 Each PO DAILY Vitamin D3 (Cholecalciferol (Vitamin D3)) 5,000 Unit Tablet 1 Tab PO DAILY Pradaxa (Dabigatran Etexilate Mesylate) 150 Mg Capsule 1 Cap PO BID Zoloft (Sertraline Hcl) 50 Mg Tablet 1 Tab PO HS Tamsulosin Hcl 0.4 Mg Cap.er.24h 1 Cap PO HS Losartan Potassium 100 Mg Tablet 100 Mg PO HS Klor-Con M20 (Potassium Chloride) 20 Meq Tab.er.prt 1 Tab PO DAILY Spironolactone 25 Mg Tablet 1 Tab PO DAILY Aspirin 81 Mg Tab.chew 1 Tab PO DAILY Carvedilol 25 Mg Tablet 1 Tab PO BID Vitals/I & O Vital Sign - Last 24 Hours 10/24/16 10/24/16 10/24/16 10/24/16 11:00 13:52 14:07 14:22 Temp 97.5 97.2 97.5 97.2 Pulse 85 112 118 Resp 16 18 18 18 B/P 122/87 113/90 133/90 Pulse Ox 96 95 97 O2 Delivery Room Air Nasal Cannula Nasal Cannula O2 Flow Rate 2 2 10/24/16 10/24/16 10/24/1617 14:22 14:25 14:37 14:45 Temp 97.4 97.4 Pulse 97 116 94 Resp 16 18 20 B/P 141/90 125/94 129/96 Pulse Ox 97 97 98 O2 Delivery Nasal Cannula Nasal Cannula Nasal Cannula Nasal Cannula O2 Flow Rate 2 2 2 2.0 10/24/16 10/24/16 10/24/16 10/24/16 15:00 15:00 15:15 15:30 Temp 97.6 97.6 Pulse 119 92 115 Resp 18 B/P 135/101 121/96 130/100 Pulse Ox 97 97 O2 Delivery Nasal Cannula Nasal Cannula O2 Flow Rate 2.0 2.0 10/24/16 10/24/16 10/24/16 10/24/16 15:45 16:15 16:28 16:28 Pulse 119 73 B/P 133/104 127/93 Pulse Ox 97 99 97 97 O2 Delivery Nasal Cannula Nasal Cannula Nasal Cannula Nasal Cannula O2 Flow Rate 2.0 2.0 2.0 2.0 10/24/16 10/24/16 10/24/16 10/24/16 16:29 16:45 17:45 18:42 Temp 98.0 98.4 98.0 98.4 Pulse 92 125 103 101 Resp 18 18 16 B/P 121/96 128/95 118/82 120/79 Pulse Ox 95 98 97 O2 Delivery Nasal Cannula Nasal Cannula Nasal Cannula O2 Flow Rate 2.0 2.0 2.0 10/24/16 10/24/16 10/24/16 10/24/16 19:30 19:35 20:55 20:55 Pulse 101 B/P 120/79 O2 Delivery Room Air Room Air Room Air 10/24/16 10/24/16 10/24/16 10/25/16 21:00 22:00 23:23 03:12 Temp 97.6 98.3 97.6 98.3 Pulse 113 114 Resp 18 18 B/P 112/85 141/97 Pulse Ox 94 95 O2 Delivery Room Air Room Air Room Air Nasal Cannula O2 Flow Rate 1.0 10/25/16 10/25/16 10/25/16 07:00 08:58 08:59 Temp 98.1 98.1 Pulse 125 125 Resp 18 18 B/P 157/85 157/85 Pulse Ox 96 O2 Delivery Room Air Room Air Intake and Output 10/24/16 10/24/16 10/25/16 15:00 23:00 07:00 Intake Total 400 ml Balance 400 ml AYALA LYMAN MD Oct 25, 2016 09:52
[2016-10-25 11:00] VITALS: BP 116/81
[2016-10-25] MEDS ORDERED: IOHEXOL 300 MG/ML 100ML VIAL. ONE (11:22)
[2016-10-25] MEDS ORDERED: IOHEXOL 300 MG/ML 50 ML VIAL. ONE (11:37)
[2016-10-25] MEDS ORDERED: IOHEXOL 300 MG/ML 50 ML VIAL. INT CAT ONE (11:45)
[2016-10-25] MEDS ORDERED: CONTRAST GIVEN MC PRN ×2 (11:45→12:00)
[2016-10-25] MEDS ORDERED: IOHEXOL 300 MG/ML 100ML VIAL. IART ONE (11:45)
--- NOTE | 2016-10-25 12:43 | PDOC ---
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 S/P placement of bilateral PCN tubes 10/13/16. S/P antegrade placement of bilateral 8F internal stents yesterday, with temporary replacement of bilateral PCN tubes. Post-Procedure Diagnosis Post-Procedure Diagnosis Bilateral internal ureteral stents lie in good position. Procedure Performed Procedure Performed Bilateral PCN tube injections, followed by bilateral PCN tube removal. Type of Anesthesia Type of Anesthesia None Estimated Blood Loss EBL: None Specimens Specimans Bilateral 8F PCN tubes removed and discarded. Drain/Tubes Drains/Tubes Bilateral 8F 24cm internal ureteral stents left unchanged in position. Condition of Patient Condition of Patient Stable. No apparent complication. Disposition Disposition From IR return to 432. F/u with Dr Chung and Dr Ross. OK to discharge from IR perspective. F/u with Dr Griggs for future cystoscopic removal of internal ureteral stents. Full report to follow. SVEN CANALES MD Oct 25, 2016 12:43
--- NOTE | 2016-10-25 13:11 | RAD ---
Fluoroscopy guided bilateral percutaneous nephrostomy tube injections Bilateral percutaneous nephrostomy tube removal Indication: 81-year-old male with bilateral ureteral obstruction, due to bulky retroperitoneal lymphadenopathy (diffuse large B-cell lymphoma). He is status post bilateral percutaneous nephrostomy drain insertion 10/13/16. He is status post antegrade placement of bilateral internal ureteral stents, with nephrostomy tube replacement, done yesterday. Bilateral nephrostomy tube injection is scheduled today, followed by nephrostomy tube removal, if internal ureteral stents remain in satisfactory position. Fluoroscopy time: 2.9 minutes Kerma-area Product: 13 Gycm2 Contrast material: 10 cc Omnipaque 300 Anesthesia: None Procedure: Informed consent was obtained the patient. He was placed prone on the angiography table. Bilateral flank were prepped and draped in the usual sterile fashion. Left side: Using aseptic technique, a small amount of dilute Omnipaque 300 was slowly injected through the indwelling left percutaneous nephrostomy drain, and fluoroscopic spot images were obtained. Those images confirmed patency of, and satisfactory position of the left internal ureteral stent placed yesterday. There was no contraindication to nephrostomy tube removal. Therefore, using aseptic technique and fluoroscopic control, the left 8 [place] percutaneous nephrostomy drain was easily removed over an Amplatz wire. A sterile dressing was applied. Right side: Using aseptic technique, small amount of dilute Omnipaque 300 was slowly injected through the indwelling right percutaneous nephrostomy drain. Fluoroscopic-guided spot images were obtained. Those images revealed satisfactory position of the right internal ureteral stent placed yesterday. Proximal loop of the internal ureteral stent has migrated superiorly lie in ideal position, within right renal pelvis. Sluggish antegrade flow was noted within proximal and mid segment of the internal ureteral stent. Using aseptic technique and fluoroscopic control, the right 8 [place] percutaneous nephrostomy drain was easily removed. No guidewire was required. A sterile dressing was applied. Patient tolerated the procedure well without apparent complication. Impression: 1. Bilateral nephrostomy tube injections revealed satisfactory position of internal ureteral stents placed yesterday. 2. Removal of bilateral 8 [place] Islander percutaneous nephrostomy tubes.
[2016-10-25 15:00] VITALS: BP 132/80
[2016-10-25] MEDS ORDERED: HEPARIN PF 500 UNIT/5 ML DISP.SYRIN. IV ONE (16:45)
--- NOTE | 2016-10-25 17:15 | PATHOLOGY ---
PATHOLOGY REPORT * * * * * * * * FINAL DIAGNOSIS: Peripheral smear: - Normocytic normochromic anemia, moderate. Bone marrow, aspirate smears, clot section, and core biopsy: - Mildly hypercellular marrow showing trilineage hematopoiesis, no significant dyspoiesis, and mildly increased reticuloendothelial iron stores-negative for lymphomatous involvement. - Minute population of atypical B-cells with predominant lambda light chain expression identified by flow cytometry. COMMENT: The peripheral smear shows a moderate normocytic normochromic anemia. The bone marrow is mildly hypercellular and shows trilineage hematopoiesis, no significant dyspoiesis, and mildly increased reticuloendothelial iron stores. A minute population of atypical B cells with predominant lambda light chain expression is identified by flow cytometry which is of unknown clinical significance (See flow cytometry report). Immunohistochemical stains obtained on the biopsy and clot section show no evidence of involvement by large B cell lymphoma. (JPM:[email or web address]; d/t: 10/25/16) Special Stains Performed: Iron stain (aspirate smear, A1); immunoperoxidase stains CD20, CD3 (A1, B1) REPORT ELECTRONICALLY SIGNED BY: Travis Patel M.D. DATE/TIME: 10/25/2016 17:15 * * * * * * * * MICROSCOPIC DESCRIPTION: Laboratory Data: The CBC results are dated 10/18/16. The WBC count is 4.2 K/CMM, and the automated WBC differential reveals 78% neutrophils, 9% lymphs, 10% monos, 2% eos, and 1% baso. The RBC count is 2.91 M/CMM, hemoglobin 8.9 G/DL, hematocrit 27.0%, MCV 93 FL, MCH 31 PG, MCHC 33 G/DL, and the RDW is 14.7%. The platelet count is 164 K/CMM. The LDH is 334 U/L. The serum iron is 57 UG/DL, TIBC 283 UG/DL, iron saturation 20%, and the ferritin is 752 NG/ML. The vitamin B12 is 510 PG/ML. The serum calcium on admission was 14.4 MG/DL. Peripheral Smear: The peripheral smear is reviewed. The WBC count is borderline low normal. The WBC differential reveals a predominance of segmented neutrophils, with small populations of lymphocytes and monocytes and a few eosinophils noted. Neutrophils do not show dysplastic changes. There is no significant neutrophilic left shift. There are no circulating blasts. There is no leukoerythroblastic reaction. The lymphocyte population consists predominantly of small mature appearing lymphocytes. There are no apparent circulating lymphoma cells. Red blood cells predominantly appear normochromic and normocytic. Red blood cells show no significant anisocytosis. Red blood cells show slight poikilocytosis with a few red blood cell fragments, ovalocytes, and occasional teardrop red blood cells noted. Platelets appear adequate in number and normal in morphology. Aspirate Smears: Two Phillips's-stained and one iron-stained aspirate smears are examined. The smears contain multiple cellular and fatty marrow particles. The M/E ratio overall is within normal range. Erythroid maturation predominantly appears normoblastic. There are no megaloblastic or overt dysplastic changes. An occasional binucleated erythroid precursor is noted. Granulopoiesis qualitatively appears normal. There are areas showing a modest left shift of granulopoiesis. There are no dysplastic changes. There is no increase of blasts. Megakaryocytes appear adequate in number and are of variable ploidy. There are scattered admixed plasma cells with no significant plasmacytosis noted. There is no increase of lymphocytes. There is no atypical lymphoreticular infiltrate. There are no cells foreign to the marrow. The iron stain of the aspirate smear shows adequate to mildly increased reticuloendothelial iron stores. No ringed sideroblasts are identified. Bone Marrow Biopsy and Clot Sections: Sections of the bone marrow biopsy reveal a segment of bone marrow. The marrow ranges between 50% and 70-80% cellular. Sections of the marrow clot reveal multiple marrow particles which range between 20-30% and 60% cellular. There is trilineage hematopoiesis with a good admixture of erythroid and granulocytic precursors. Megakaryocytes appear adequate in number and are of variable ploidy. There are admixed eosinophils which focally appear mildly increased. Plasma cells do not appear increased. There are no abnormal lymphoid aggregates. There is no atypical lymphoreticular infiltrate. There are no granulomas or cells foreign to the marrow. To confirm flow cytometric findings and characterize the target cells in a tissue architectural context, a limited panel of immunohistochemical stains is obtained and yields the following results: (Block B1) CD20: few small lymphocytes positive scattered throughout the marrow and comprising less than 5% of nucleated marrow cells CD3: small population of small lymphocytes positive distributed throughout the marrow and comprising 10-15% of nucleated marrow cells (Block A1) CD20: few small lymphocytes positive scattered throughout the marrow and comprising less than 5% of nucleated marrow cells CD3: small population of small lymphocytes positive distributed throughout the marrow and in occasional small clusters and comprising 10-20% of nucleated marrow cells The iron stain of the clot section shows focally increased reticuloendothelial iron stores. There are no ringed sideroblasts. Special Studies: Bone marrow submitted for marker studies by flow cytometry has a viability of 99.4%. Granulocytes comprise 90.0% of total cells and show phenotypic evidence of maturation without dysmaturation. Monocytes comprise 3.9% of total cells and show phenotypic evidence of maturation. CD45 dim, CD34 positive cells comprise 0.7% of total cells. Lymphocytes comprise 3.9% of total cells. T-cells comprise 66% of lymphoid cells and show a CD4/CD8 ratio of about 1.1. NK-cells comprise 20% of lymphoid cells. B-cells comprise 6% of lymphoid cells. The B-cells show slight excess of lambda light chain expression with a kappa lambda light chain ratio of approximately 0.4:1. There is no co-expression of CD5, CD10, or CD11C. Plasma cells comprise 0.1% of total cells and are not increased. Bone marrow submitted for cytogenetic analysis shows an abnormal male karyotype. 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 The remaining eleven cells show a normal male karyotype. (JPM:; d/t: 10/24/16) GROSS PATHOLOGY: A. Received in formalin labeled "Abad Ortiz" and additionally labeled "BM BX clot" on the requisition is a 1.3 x 1.0 x 0.2 cm aggregate of blood tinged, cormier, and irregular soft tissue fragments. The specimen is entirely submitted in cassette A1. B. Received in formalin labeled "Abad Ortiz" and additionally labeled "BM BX" on the requisition is a single needle core of cormier bone, measuring 0.5 cm in length and 0.2 cm in diameter. The specimen is submitted entirely in cassette B1, following decalcification. (TTL; 10/18/2016) INITIAL CPT CODE(S): A; 87261, 67939, 59941, 86785 B; 41057, 89948, 22990, 88880, 63580 C; 76461, 52664 Professional services performed by [facility] at [address] [place] [address] Technical services performed by [facility] at [address] [place] [address], [address], [place] [address]. SPECIMEN(S) RECEIVED: A.Bone marrow, clot B.Bone marrow, biopsy C.Bone marrow, aspirate smears D.Peripheral smear CLINICAL HISTORY: New diagnosis of lymphoma, staging PATIENT: ABAD ORTIZ /AGE: 7 1935 (Age: 81) PATIENT #: [id number] ALT CASE #: SPECIMEN COLLECTION DATE: 10/18/2016 SPECIMEN RECEIVED DATE: 10/18/2016 [facility] - [address] [place] [address] - PHONE: [phone] * * * END OF REPORT * * *
--- NOTE | 2016-10-26 02:59 | DS ---
DATE OF DISCHARGE: 10/25/2016 DISCHARGE DIAGNOSES: 1. Diffuse large B cell lymphoma. 2. Acute renal failure. 3. Hyperkalemia. 4. Hypercalcemia. HISTORY OF PRESENT ILLNESS: This is an 81-year-old white male who is well known to me from followup in the clinic. The patient was seen in our office on the day of admission secondary to his lead database administrator referring him to our office for an increased LDH. A CBC and CMP were obtained in the office and the patient was found to be in acute renal failure with a BUN of 44 and a creatinine of 3.47. His baseline creatinine is 1.4. The patient was also found to be hyperkalemic. He was profoundly hypercalcemic with a calcium of 13.5. The repeat LDH was 393. The patient was admitted to the hospital for further workup of his hypercalcemia, hyperkalemia, and acute renal failure. SUMMARY OF STAY: The patient was given Kayexalate upon admission for a potassium of 5.9. A CT scan on 10/11/2016 showed a large abdominal mass encasing the infrarenal abdominal aorta measuring 12.7 cm. An echo revealed a normal ejection fraction of 60% to 65%. Due to the mass identified on the CT scan, a CT-guided biopsy was performed on 10/13/2016. Pathology report revealed a large B cell. A CT of the neck and chest was done on 10/17/2016, which revealed a cervical LN. A bone scan was also done on 10/17/2015, which showed no definite evidence of metastatic disease. 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 There was intense uptake at L2 compatible with a known fracture and mild uptake at T6 suggesting an old compression fracture. Oncology led the patient's care following the diagnosis of B cell lymphoma. A Port-A-Cath was placed on 10/18/2016, and a bone marrow biopsy was done on that day. Chemo was initiated on 10/19/2016. The patient tolerated chemotherapy well. The patient was also placed on Neupogen to meet an elevated WBC per oncology. This will be continued through 10/30/2016. The renal team followed the patient throughout his stay. On 10/12/2016, an ureteral stenting was attempted and was unsuccessful due to prostate bleeding. The Pradaxa was stopped, and a reversal agent was given. The patient experienced no additional bleeding, and his hemoglobin maintained a stable level. Bilateral nephrostomy tubes were placed. The patient tolerated this procedure well, and these remained in place until 10/24/2016 when they were removed and ureteral stents were placed. The patient will require these ureteral stents to remain in place until the tumor shrinks. Oncology is optimistic that the patient will rapidly respond to the chemo and possibly these stents can be removed in 2 to 3 weeks. The patient's calcium did improve following Miacalcin. Upon admission, this was administered x 3. The patient's calcium level was within normal limits on the date of discharge. The hypercalcemia was secondary to the malignancy. The patient was discharged with leukocytosis. This is secondary to the Neupogen, which has been prescribed per oncology and will be continued through 10/30/2016 to maintain an elevated WBC count. The patient was evaluated by OT, PT; and it was felt that the patient would benefit from alf with continued PT, OT services for his generalized weakness and muscular weakness secondary to being in the hospital for a long period of time. DIET: Regular. ACTIVITY: As tolerated. PT, OT will be consulted for evaluation and treatment upon admission to the [facility]. DISCHARGE MEDICATIONS: Listed on the medical record and have been addressed. As mentioned above, the Neupogen will be continued through the evening dose on 10/29/2016. The patient's Pradaxa and aspirin are currently on hold secondary to the bleeding with the attempted the ureteral stenting on 10/12/2016. These will be reinstituted in the future when the patient is stable. FOLLOWUP: We will [facility]. The patient will need a followup appointment with Dr. Ross per Dr. Ross's recommendation. The patient stated understanding of the above discharge summary, denied questions and will follow up accordingly. AYALA LYMAN MD DR: GEO/miranda JOB#: [id number] / [id number]
== END 2016-10-25 16:50 | DRG 821 ==
LOC: 2 NORTH 10:16 → 1 WEST ICU 10-12 16:18 → 4 NORTH 10-14 14:35
PROVIDERS: ADMIT Family Medicine; ATTEND Family Medicine
PROC: 5A1D60Z (ICD-10-PCS; 2016-10-09)
PROC: 0V508ZZ Destruction of Prostate, Via Natural or Artificial Opening Endoscopic (ICD-10-PCS; 2016-10-12)
PROC: 05HM33Z Insertion of Infusion Device into Right Internal Jugular Vein, Percutaneous Approach (ICD-10-PCS; 2016-10-12)
PROC: B543ZZA Ultrasonography of Right Jugular Veins, Guidance (ICD-10-PCS; 2016-10-12)
PROC: 0W3R8ZZ Control Bleeding in Genitourinary Tract, Via Natural or Artificial Opening Endoscopic (ICD-10-PCS; 2016-10-12)
PROC: 30233L1 Transfusion of Nonautologous Fresh Plasma into Peripheral Vein, Percutaneous Approach (ICD-10-PCS; 2016-10-12)
PROC: 30233K1 Transfusion of Nonautologous Frozen Plasma into Peripheral Vein, Percutaneous Approach (ICD-10-PCS; 2016-10-12)
PROC: 0WBH3ZX Excision of Retroperitoneum, Percutaneous Approach, Diagnostic (ICD-10-PCS; principal; 2016-10-14)
PROC: 0T9130Z Drainage of Left Kidney with Drainage Device, Percutaneous Approach (ICD-10-PCS; 2016-10-14)
PROC: 0T9030Z Drainage of Right Kidney with Drainage Device, Percutaneous Approach (ICD-10-PCS; 2016-10-14)
PROC: 07DR3ZX Extraction of Iliac Bone Marrow, Percutaneous Approach, Diagnostic (ICD-10-PCS; 2016-10-18)
PROC: 0TP5X0Z Removal of Drainage Device from Kidney, External Approach (ICD-10-PCS; 2016-10-25)
PROC: 0T783DZ Dilation of Bilateral Ureters with Intraluminal Device, Percutaneous Approach (ICD-10-PCS; 2016-10-25)
DX: C83.30 Diffuse large B-cell lymphoma, unspecified site (principal); M48.56XA Collapsed vertebra, not elsewhere classified, lumbar region, initial encounter for fracture; N13.1 Hydronephrosis with ureteral stricture, not elsewhere classified; E44.0 Moderate protein-calorie malnutrition; D68.9 Coagulation defect, unspecified; N17.9 Acute kidney failure, unspecified; N18.4 Chronic kidney disease, stage 4 (severe); E87.5 Hyperkalemia; D64.9 Anemia, unspecified; D72.829 Elevated white blood cell count, unspecified; I12.9 Hypertensive chronic kidney disease with stage 1 through stage 4 chronic kidney disease, or unspecified chronic kidney disease; I25.10 Atherosclerotic heart disease of native coronary artery without angina pectoris; I48.91 Unspecified atrial fibrillation; K59.00 Constipation, unspecified; Z96.659 Presence of unspecified artificial knee joint; N28.1 Cyst of kidney, acquired; T45.515A Adverse effect of anticoagulants, initial encounter; Z85.820 Personal history of malignant melanoma of skin; Z92.21 Personal history of antineoplastic chemotherapy; Z68.30 Body mass index [BMI] 30.0-30.9, adult; E83.52 Hypercalcemia; I71.4 Abdominal aortic aneurysm, without rupture; N40.1 Benign prostatic hyperplasia with lower urinary tract symptoms; R31.9 Hematuria, unspecified
CPT/HCPCS: 36415; 36556; 36561; 38221; 49180; 50395; 50431; 50432; 50693; 70490; 71010; 71250; 72100; 74176; 74485; 76770; 76937; 77001; 77012; 78306; 80053; 80069; 82306; 82570; 82607; 82728; 83520; 83540; 83550; 83615; 83735; 83970; 84100; 84132; 84156; 84165; 84166; 84300; 84550; 85018; 85027; 85045; 85384; 85610; 85730; 86334; 86705; 86706; 86850; 86900; 86901; 86927; 87340; 87341; 87641; 88184; 88185; 88237; 88305; 88307; 88311; 88313; 88341; 88342; 88360; 93306; 96374; A4215; A9503; C1713; C1729; C1751; C1769; C1892; C1894; G0364; J0630; J0690; J1100; J1442; J1956; J2250; J2370; J2405; J2704; J3010; J3370; J3480; J3490; J3590; J7030; J7050; J7060; J7120; J7512; J8540; J9000; J9070; J9310; J9370; P9017; Q0163; Q9967; 97110; 97116; 97530; 97535; G0641

== ENCOUNTER 2016-11-02 13:42 | Inpatient (IN) | payer MEDICARE, BC ==
[~2016-11-02] VITALS: Ht 180.3 cm; Wt 88.0 kg
[~2016-11-02 13:42] MED LIST: ASPI81TA2 PO; CALC600T4 PO; CARV25TA2 PO; CHOL500016 PO; DABI150C PO; EZET1TAB19 PO; FENO145T2 PO; LOSA100T6 PO; MULT-246 PO; POTA20TA4 PO; POTA20TA82 PO; SERT50TA PO; SPIR25TA3 PO; TAMS0.4C2 PO
[2016-11-02 14:15] VITALS: BP 100/70
[2016-11-02] MEDS ORDERED: HEPARIN 25,000UTS/500ML PREMIX 500 ML IV PRN (18:00)
[2016-11-02 19:00] VITALS: BP 136/86
[2016-11-02 19:30] VITALS: BP 100/70
[2016-11-02] MEDS ORDERED: FENO50CA3 PO (19:46)
[2016-11-02] MEDS ORDERED: POTA10CA PO (19:46)
[2016-11-02 19:53] LABS: BASO % 0 % (0-3); EOS % 0 % (0-3); HEMATOCRIT 22.9 % (39.0-53.0); HEMOGLOBIN 7.7 g/dL (13.0-17.5); LYMPH # 0.4 x10^3/uL (1.0-4.8); LYMPH % 16 % (24-48); MEAN CORPUSCULAR HEMOGLOBIN 31 pg (25-35); MEAN CORPUSCULAR HGB CONC 34 g/dL (31-37); MEAN CORPUSCULAR VOLUME 92 fL (79-100); MONO % 11 % (0-9); NEUT % 72 % (31-73); PLATELET COUNT 124 x10^3/uL (140-400); RED BLOOD COUNT 2.49 x10^6/uL (4.30-5.70); RED CELL DISTRIBUTION WIDTH 13.8 % (11.5-14.5); WHITE BLOOD COUNT 2.4 x10^3/uL (4.0-11.0)
[2016-11-02] MEDS ORDERED: HEPARIN for IV BOLUS 10,000 UNIT/10 ML VIAL. IV PRN (20:00)
[2016-11-02 20:28] LABS: ANISOCYTOSIS SLIGHT; HYPOCHROMIA SLIGHT; PLT ESTIMATE ADEQUATE (ADEQUATE)
[2016-11-02] MEDS: LOSARTAN POTASSIUM 50 MG TABLET. PO SCH (20:30)
[2016-11-02] MEDS: SIMVASTATIN 40 MG TABLET. PO SCH (20:30)
[2016-11-02] MEDS: SERTRALINE 50 MG TABLET. PO SCH (20:30)
[2016-11-02] MEDS: EZETIMIBE 10 MG TABLET PO SCH (20:30)
[2016-11-02] MEDS: TAMSULOSIN 0.4 MG CAP.ER.24H. PO SCH (20:30)
[2016-11-02] MEDS: CARVEDILOL 12.5 MG TABLET PO SCH (20:31)
[2016-11-02] MEDS: HEPARIN 25,000UTS/500ML PREMIX 500 ML IV PRN (20:33)
[2016-11-02] MEDS ORDERED: SIMVASTATIN PO SCH (21:00)
[2016-11-02] MEDS ORDERED: EZETIMIBE PO SCH (21:00)
[2016-11-02 23:00] VITALS: BP 123/86
[2016-11-03] VITALS (13 sets, daily range): BP systolic 91–140; BP diastolic 67–99
[2016-11-03 06:33] LABS: CALCIUM 8.6 mg/dL (8.5-10.1); CREATININE 1.5 mg/dL (0.7-1.3); GFR 44.7
[2016-11-03 06:43] LABS: POTASSIUM 2.9 mmol/L (3.5-5.1)
[2016-11-03 06:49] LABS: BASO % 1 % (0-3); EOS % 0 % (0-3); HEMATOCRIT 21.4 % (39.0-53.0); HEMOGLOBIN 7.2 g/dL (13.0-17.5); LYMPH # 0.4 x10^3/uL (1.0-4.8); LYMPH % 16 % (24-48); MEAN CORPUSCULAR HEMOGLOBIN 30 pg (25-35); MEAN CORPUSCULAR HGB CONC 33 g/dL (31-37); MEAN CORPUSCULAR VOLUME 91 fL (79-100); MONO % 12 % (0-9); NEUT % 71 % (31-73); PLATELET COUNT 122 x10^3/uL (140-400); RED BLOOD COUNT 2.36 x10^6/uL (4.30-5.70); RED CELL DISTRIBUTION WIDTH 14.3 % (11.5-14.5); WHITE BLOOD COUNT 2.3 x10^3/uL (4.0-11.0)
[2016-11-03] MEDS ORDERED: POTASSIUM CHLORIDE 20 MEQ TABLET.ER. PO ONE (07:00)
[2016-11-03] MEDS: CARVEDILOL 12.5 MG TABLET PO SCH ×2 (08:01→17:32)
[2016-11-03] MEDS: POTASSIUM CHLORIDE 10 MEQ TABLET.ER. PO SCH ×2 (08:02→17:32)
[2016-11-03] MEDS: CALCIUM CARBONATE 500 MG TABLET PO SCH (08:02)
[2016-11-03] MEDS: ASPIRIN 81 MG TAB.CHEW PO SCH (08:02)
[2016-11-03] MEDS: FENOFIBRATE,MICRONIZED 134 MG CAPSULE PO SCH (08:03)
[2016-11-03] MEDS: CHOLECALCIFEROL (VITAMIN D3) 5,000 UNIT CAPSULE PO SCH (08:03)
[2016-11-03] MEDS: MULTIVITAMIN with MINERAL TABLET. PO SCH (08:05)
[2016-11-03] MEDS: SPIRONOLACTONE 25 MG TABLET PO SCH (08:05)
[2016-11-03] MEDS: HEPARIN for IV BOLUS 10,000 UNIT/10 ML VIAL. IV PRN (08:16)
--- NOTE | 2016-11-03 10:00 | PDOC ---
PROGRESS NOTES Subjective Subjective Pt awake and pleasant in conversation. Denies pain. Denies urinary burning or frequency. Objective Objective Pt awake and alert. NAD. VSS. Afebrile. Lungs CTA bilat. Resp even and unlabored. Heart with RRR. No murmurs. Left leg with hardened edema, erythremic and warm. Vital Signs Date Time Temp Pulse Resp B/P Pulse Ox O2 Delivery O2 Flow Rate FiO2 11/03/16 08:01 82 126/89 11/03/16 07:46 97.9 18 97 Room Air 97.9 Intake and Output 11/03/16 07:00 Intake Total 280 ml Balance 280 ml Intake Oral 280 ml # Voids 9 Plan Plan of Care 1. Diffuse large B cell lymphoma without metastatic disease. -Oncology, Dr Ross, leading care -Pt with portacath -Chemo initiated 10/19/16. 2. Left leg DVT -Venous doppler, "Extensive deep venous thrombosis throughout the left lower extremity." -Pt on Heparin. C/o anticoag with hematuria -Plavix held 3. Gross hematuria -Urology consulting -probable secondary to uretal stenting attempted on 10/12 which was unsuccessful d/t prostate bleeding. Nephrostomy tubes were placed and then removed with stent placement on 10/24. No hematuria noted until 1 week ago when bleeding was noted at [facility] approximately 1 week ago. -UA obtained at [facility] on 10/31 positive with sensitivity to Nitrofurantoin. Macrodantin initiated on 11/02. -Repeat UA with C and S this am. -Macrobid 100mg, bid ordered 4. Chronic renal failure, baseline creat 1.4 -Creat 1.5 this am 5. Hypokalemia -K 2.9 upon admission, 40mEq of KCl adm this am -Recheck BMP in am 6. Anemia -Hgb 7.2 upon admission -Recheck CBC in am Comment Review of Relevant I have reviewed the following items juan (where applicable) has been applied. Labs Laboratory Tests Test 11/02/16 19:40 11/03/16 05:55 White Blood Count 2.4x10^3/uL (4.0-11.0) 2.3x10^3/uL (4.0-11.0) Red Blood Count 2.49x10^6/uL (4.30-5.70) 2.36x10^6/uL (4.30-5.70) Hemoglobin 7.7g/dL (13.0-17.5) 7.2g/dL (13.0-17.5) Hematocrit 22.9% (39.0-53.0) 21.4% (39.0-53.0) Mean Corpuscular Volume 92fL (79-100) 91fL (79-100) Mean Corpuscular Hemoglobin 31pg (25-35) 30pg (25-35) Mean Corpuscular Hemoglobin Concent 34g/dL (31-37) 33g/dL (31-37) Red Cell Distribution Width 13.8% (11.5-14.5) 14.3% (11.5-14.5) Platelet Count 124x10^3/uL (140-400) 122x10^3/uL (140-400) Neutrophils (%) (Auto) 72% (31-73) 71% (31-73) Lymphocytes (%) (Auto) 16% (24-48) 16% (24-48) Monocytes (%) (Auto) 11% (0-9) 12% (0-9) Eosinophils (%) (Auto) 0% (0-3) 0% (0-3) Basophils (%) (Auto) 0% (0-3) 1% (0-3) Neutrophils # (Auto) 1.7x10^3uL (1.8-7.7) 1.6x10^3uL (1.8-7.7) Lymphocytes # (Auto) 0.4x10^3/uL (1.0-4.8) 0.4x10^3/uL (1.0-4.8) Monocytes # (Auto) 0.3x10^3/uL (0.0-1.1) 0.3x10^3/uL (0.0-1.1) Eosinophils # (Auto) 0.0x10^3/uL (0.0-0.7) 0.0x10^3/uL (0.0-0.7) Basophils # (Auto) 0.0x10^3/uL (0.0-0.2) 0.0x10^3/uL (0.0-0.2) Segmented Neutrophils % 69% (35-66) Lymphocytes % 20% (24-48) Monocytes % 10% (0-10) Myelocytes % 1% (0-0) Platelet Estimate Adequate (ADEQUATE) Hypochromasia Slight Anisocytosis Slight Heparin Anti-Xa Act, Unfractionated 0.20IU/mL (0.30-0.70) Sodium Level 147mmol/L (136-145) Potassium Level 2.9mmol/L (3.5-5.1) Chloride Level 109mmol/L (98-107) Carbon Dioxide Level 30mmol/L (21-32) Anion Gap 8 (6-14) Blood Urea Nitrogen 20mg/dL (8-26) Creatinine 1.5mg/dL (0.7-1.3) Estimated GFR (Cockcroft-Gault) 44.7 Glucose Level 92mg/dL (70-99) Calcium Level 8.6mg/dL (8.5-10.1) Laboratory Tests Test 11/02/16 19:40 11/03/16 05:55 White Blood Count 2.4x10^3/uL (4.0-11.0) 2.3x10^3/uL (4.0-11.0) Red Blood Count 2.49x10^6/uL (4.30-5.70) 2.36x10^6/uL (4.30-5.70) Hemoglobin 7.7g/dL (13.0-17.5) 7.2g/dL (13.0-17.5) Hematocrit 22.9% (39.0-53.0) 21.4% (39.0-53.0) Mean Corpuscular Volume 92fL (79-100) 91fL (79-100) Mean Corpuscular Hemoglobin 31pg (25-35) 30pg (25-35) Mean Corpuscular Hemoglobin Concent 34g/dL (31-37) 33g/dL (31-37) Red Cell Distribution Width 13.8% (11.5-14.5) 14.3% (11.5-14.5) Platelet Count 124x10^3/uL (140-400) 122x10^3/uL (140-400) Neutrophils (%) (Auto) 72% (31-73) 71% (31-73) Lymphocytes (%) (Auto) 16% (24-48) 16% (24-48) Monocytes (%) (Auto) 11% (0-9) 12% (0-9) Eosinophils (%) (Auto) 0% (0-3) 0% (0-3) Basophils (%) (Auto) 0% (0-3) 1% (0-3) Neutrophils # (Auto) 1.7x10^3uL (1.8-7.7) 1.6x10^3uL (1.8-7.7) Lymphocytes # (Auto) 0.4x10^3/uL (1.0-4.8) 0.4x10^3/uL (1.0-4.8) Monocytes # (Auto) 0.3x10^3/uL (0.0-1.1) 0.3x10^3/uL (0.0-1.1) Eosinophils # (Auto) 0.0x10^3/uL (0.0-0.7) 0.0x10^3/uL (0.0-0.7) Basophils # (Auto) 0.0x10^3/uL (0.0-0.2) 0.0x10^3/uL (0.0-0.2) Segmented Neutrophils % 69% (35-66) Lymphocytes % 20% (24-48) Monocytes % 10% (0-10) Myelocytes % 1% (0-0) Platelet Estimate Adequate (ADEQUATE) Hypochromasia Slight Anisocytosis Slight Heparin Anti-Xa Act, Unfractionated 0.20IU/mL (0.30-0.70) Sodium Level 147mmol/L (136-145) Potassium Level 2.9mmol/L (3.5-5.1) Chloride Level 109mmol/L (98-107) Carbon Dioxide Level 30mmol/L (21-32) Anion Gap 8 (6-14) Blood Urea Nitrogen 20mg/dL (8-26) Creatinine 1.5mg/dL (0.7-1.3) Estimated GFR (Cockcroft-Gault) 44.7 Glucose Level 92mg/dL (70-99) Calcium Level 8.6mg/dL (8.5-10.1) Medications Current Medications Heparin Sodium/ Dextrose 500 ml @ 0 mls/hr CONT PRN IV SEE I/O RECORD; Start at 18:00; Stop 11/02/16 at 19:55; Status DC Aspirin (Children'S Aspirin) 81 mg DAILY PO Last administered on 11/03/16 08: 02; Start 11/03/16 at 09:00 Sertraline HCl (Zoloft) 50 mg HS PO Last administered on 11/02/16 20:30; Start 11/02/16 at 21:00 Spironolactone (Aldactone) 25 mg DAILY PO Last administered on 11/03/16 08:05 ; Start 11/03/16 at 09:00 Tamsulosin HCl (Flomax) 0.4 mg HS PO Last administered on 11/02/16 20:30; Start 11/02/16 at 21:00 Carvedilol (Coreg) 25 mg BIDWMEALS PO Last administered on 11/03/16 08:01; Start 11/02/16 at 20:30 Vitamin D (Vitamin D3) 5,000 unit DAILY PO Last administered on 11/03/16 08:03 ; Start 11/03/16 at 09:00 Non-Formulary Medication 1 each HS PO ; Start 11/02/16 at 21:00; Status UNV Fenofibrate (Lofibra) 134 mg DAILY PO Last administered on 11/03/16 08:03; Start 11/03/16 at 09:00 Losartan Potassium (Cozaar) 100 mg QHS PO Last administered on 11/02/16 20:30 ; Start 11/02/16 at 21:00 Multivitamins/ Calcium (Thera M Plus) 1 tab DAILY PO Last administered on 08:05; Start 11/03/16 at 09:00 Potassium Chloride (Klor-Con) 10 meq BIDWMEALS PO Last administered on 08:02; Start 11/03/16 at 08:00 Calcium Carbonate/ Glycine 500 mg 500 mg DAILY PO Last administered on 08:02; Start 11/03/16 at 09:00 Heparin Sodium/ Dextrose 500 ml @ 0 mls/hr CONT PRN IV SEE I/O RECORD Last administered on 11/02/16 20:33; Start 11/02/16 at 20:00 Heparin Sodium (Porcine) 2,800 unit PRN Q6HRS PRN IV FOR UFH LEVEL LESS THAN 0.2; Start 11/02/16 at 20:00 Heparin Sodium (Porcine) 1,400 unit PRN Q6HRS PRN IV FOR UFH LEVEL 0.2 - 0.29 Last administered on 11/03/16 08:16; Start 11/02/16 at 20:00 EZETIMIBE (Zetia) 10 mg QHS PO Last administered on 11/02/16 20:30; Start at 21:00 Simvastatin (Zocor) 80 mg QHS PO Last administered on 11/02/16 20:30; Start at 21:00 Potassium Chloride (Klor-Con) 40 meq 1X ONCE PO Last administered on 08:01; Start 11/03/16 at 07:00; Stop 11/03/16 at 07:01; Status DC Tbo-Filgrastim (Granix) 480 mcg QHS SQ ; Start 11/03/16 at 21:00 Active Scripts Active Reported Potassium Chloride 10 Meq Capsule.er 10 Meq PO BID Fenofibrate 50 Mg Capsule 125 Mg PO DAILY Calcium (Calcium Carbonate) 600 Mg Tablet 600 Mg PO Vytorin 10-80 Mg Tablet (Ezetimibe/Simvastatin) 1 Each Tablet 1 Each PO HS Multi-Vitamin Daily (Multivitamin) 1 Each Tablet 1 Each PO DAILY Vitamin D3 (Cholecalciferol (Vitamin D3)) 5,000 Unit Tablet 1 Tab PO DAILY Zoloft (Sertraline Hcl) 50 Mg Tablet 1 Tab PO HS Tamsulosin Hcl 0.4 Mg Cap.er.24h 1 Cap PO HS Losartan Potassium 100 Mg Tablet 100 Mg PO HS Spironolactone 25 Mg Tablet 1 Tab PO DAILY Aspirin 81 Mg Tab.chew 1 Tab PO DAILY Carvedilol 25 Mg Tablet 1 Tab PO BID Vitals/I & O Vital Sign - Last 24 Hours 11/02/16 11/02/16 11/02/16 11/02/16 14:15 19:00 19:30 20:00 Temp 98.3 98.4 98.3 98.3 98.4 98.3 Pulse 84 83 84 Resp 20 20 20 B/P 100/70 136/86 100/70 Pulse Ox 98 96 O2 Delivery Room Air Room Air Room Air Room Air 11/02/16 11/02/16 11/02/16 11/03/16 20:30 20:31 23:00 03:00 Temp 98.5 97.9 98.5 97.9 Pulse 84 84 85 93 Resp 20 19 B/P 100/70 100/70 123/86 138/84 Pulse Ox 98 94 O2 Delivery Room Air Room Air 11/03/16 11/03/16 07:46 08:01 Temp 97.9 97.9 Pulse 82 82 Resp 18 B/P 126/89 126/89 Pulse Ox 97 O2 Delivery Room Air Intake and Output 11/02/16 11/02/16 11/03/16 15:00 23:00 07:00 Intake Total 280 ml Balance 280 ml AYALA LYMAN MD Nov 03, 2016 10:00
[2016-11-03 11:51] LABS: BASO % 1 % (0-3); EOS % 0 % (0-3); HEMATOCRIT 22.4 % (39.0-53.0); HEMOGLOBIN 7.5 g/dL (13.0-17.5); LYMPH # 0.3 x10^3/uL (1.0-4.8); LYMPH % 14 % (24-48); MEAN CORPUSCULAR HEMOGLOBIN 31 pg (25-35); MEAN CORPUSCULAR HGB CONC 34 g/dL (31-37); MEAN CORPUSCULAR VOLUME 91 fL (79-100); MONO % 11 % (0-9); NEUT % 74 % (31-73); PLATELET COUNT 133 x10^3/uL (140-400); RED BLOOD COUNT 2.48 x10^6/uL (4.30-5.70); RED CELL DISTRIBUTION WIDTH 14.3 % (11.5-14.5); WHITE BLOOD COUNT 2.5 x10^3/uL (4.0-11.0)
[2016-11-03] MEDS: HEPARIN 25,000UTS/500ML PREMIX 500 ML IV PRN (12:02)
[2016-11-03 12:08] LABS: CALCIUM 8.9 mg/dL (8.5-10.1); CREATININE 1.6 mg/dL (0.7-1.3); GFR 41.5; POTASSIUM 3.9 mmol/L (3.5-5.1)
--- NOTE | 2016-11-03 13:33 | PDOC ---
Provider Note Provider Note Urology: KUB ordered to check stents position IVA LR DO Nov 03, 2016 13:33
--- NOTE | 2016-11-03 14:48 | HP ---
ADMIT DATE: 11/02/2016 CHIEF COMPLAINT AND HISTORY OF PRESENT ILLNESS: This is an 81-year-old male who is well known to me from years of followup in our clinic as well as recent hospitalization and new diagnosis of diffusely large B cell lymphoma. Following his diagnosis and initiation of chemotherapy, the patient was discharged to the [facility] for rehabilitation over course of his stay at the [facility]. The nursing staff reported small amounts of hematuria, which gradually increased over the previous week. A UA was obtained, which did reveal positive findings and sensitivity to Macrobid. Macrobid was started on 11/01/2016. The patient also had complaints of left leg pain and the nursing staff reported increased swelling and redness. A Doppler was ordered and it was found that the patient had an extensive deep vein thrombosis throughout the left lower extremity. The patient was seen in Dr. Ross's office on 11/02/2016 and it was felt that the patient should be admitted and placed on and drip with concerns of the large amounts of hematuria and need for anticoagulation for the DVT. PAST MEDICAL HISTORY: Large B cell lymphoma, currently undergoing chemotherapy, chronic renal failure with baseline creatinine is 1.4. The patient with a history of melanoma and he also has a history of a 3.5 ____ abdominal aortic aneurysm. He has AFib for which he had taken Xarelto and then was changed to Plavix upon his most recent admission. He has a history of BPH, atherosclerotic heart disease and some depression. MEDICATIONS: Medications were brought with the patient, listed on the computer and have been addressed. ALLERGIES: He has no known drug allergies. SOCIAL HISTORY: He is a nonsmoker, does not use drugs or alcohol. Prior to his diagnosis and recent stay at the [facility], he lived at home alone and does have a very supportive family. FAMILY HISTORY: Noncontributory. REVIEW OF SYSTEMS: As mentioned above. The patient denies any dysuria or urinary frequency. PHYSICAL EXAMINATION: GENERAL: He is a well-developed, well-nourished white male who is in no apparent distress upon examination. VITAL SIGNS: Stable. He is afebrile. HEENT: Unremarkable. NECK: Supple, without thyromegaly. CHEST: Clear to auscultation and percussion. HEART: Irregularly irregular without S3, S4 or murmur. ABDOMEN: Soft and nontender, without hepatosplenomegaly or masses palpable. EXTREMITIES: The left lower extremity is warm with hardened edema up through the calf area and associated erythema. Pedal pulses present. Capillary refill is within normal limits. NEUROLOGIC: He is intact. IMPRESSION: 1. Diffusely large B cell lymphoma. 2. Left leg deep venous thrombosis. 3. Gross hematuria. 4. Hypokalemia. 5. Anemia. 6. Chronic renal failure. PLAN: The patient has been admitted to the hospital. Heparin has been started for Dr. Ross's orders. The patient has been given supplemental potassium chloride to correct his potassium level of 2.9. Urology has been consulted as we are concerns about the hematuria being secondary to the attempted ureteral stenting ____. A repeat UA will be obtained and then Macrobid 100 mg b.i.d. will be restarted and we will continue to monitor, manage and treat the patient appropriately alongside Urology and Oncology throughout his hospital stay. AYALA LYMAN MD DR: GEO/miranda JOB#: [id number] / [id number]
[2016-11-03] MEDS: ANTI-COAG MONITOR BY PHARMACY. MC PRN (15:48)
[2016-11-03 16:04] LABS: BILIRUBIN,URINE NEGATIVE (NEG); GLUCOSE,URINE NEGATIVE (NEG); NITRITE,URINE NEGATIVE (NEG); PROTEIN,URINE 100 mg/dL (NEG-TRACE)
[2016-11-03 16:11] LABS: BACTERIA,URINE 0 /HPF (0-FEW); RBC,URINE TNTC /HPF (0-2); WBC,URINE OCC /HPF (0-4)
--- NOTE | 2016-11-03 16:41 | PDOC ---
Provider Note Provider Note Hem-Onc consult 1. DVT - venous doppler 11/02/16 reveals extensive DVT of LLE. Pradaxa was resumed 10/28/16. He reports hematuria and urinary incontinence. I recommended to d/c pradaxa and admit to [facility] and start IV heparin with close monitoring for bleeding. I would plan to transition to lovenox upon discharge. Consult urology for hematuria. 2. DLBCL - next chemo 11/09/16. 2. Anemia - plan 2 PRBC 4. Neutropenia - cont granix I d/w Appl. See dictation. JENNIFER QURESHI MD Nov 03, 2016 16:41
[2016-11-03] MEDS: NITROFURANTOIN MONOHYD/M-CRYST 100 MG CAPSULE. PO SCH ×2 (17:32→20:40)
[2016-11-03] MEDS: TAMSULOSIN 0.4 MG CAP.ER.24H. PO SCH (20:40)
[2016-11-03] MEDS: EZETIMIBE 10 MG TABLET PO SCH (20:40)
[2016-11-03] MEDS: SERTRALINE 50 MG TABLET. PO SCH (20:40)
[2016-11-03] MEDS: TBO-FILGRASTIM 480 MCG/0.8 ML SYRINGE. SQ SCH (20:41)
[2016-11-03] MEDS: SIMVASTATIN 40 MG TABLET. PO SCH (20:41)
[2016-11-03] MEDS: LOSARTAN POTASSIUM 50 MG TABLET. PO SCH (20:41)
[2016-11-04] VITALS (7 sets, daily range): BP systolic 116–151; BP diastolic 73–98
[2016-11-04 05:23] LABS: HEMATOCRIT 25.8 % (39.0-53.0); HEMOGLOBIN 8.7 g/dL (13.0-17.5); RED BLOOD COUNT 2.85 x10^6/uL (4.30-5.70); RED CELL DISTRIBUTION WIDTH 14.6 % (11.5-14.5); WHITE BLOOD COUNT 2.6 x10^3/uL (4.0-11.0)
[2016-11-04 05:30] LABS: CALCIUM 8.6 mg/dL (8.5-10.1); CREATININE 1.4 mg/dL (0.7-1.3); GFR 48.4; POTASSIUM 3.3 mmol/L (3.5-5.1)
--- NOTE | 2016-11-04 08:13 | RAD ---
KUB, 11/04/2016: History: Check ureteral stents A supine view of the abdomen demonstrates bilateral ureteral stents in place. They appear to be in satisfactory positions. Embolization coils are present projected over the left paraspinous region at the L4-5 level. The flank regions were not completely included on this exam. The abdominal gas pattern is unremarkable. Scattered vascular calcifications are present. 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 An L2 vertebral compression fracture is again noted. IMPRESSION: The bilateral ureteral stents appear to be in satisfactory positions.
[2016-11-04] MEDS ORDERED: POTASSIUM CHLORIDE 20 MEQ TABLET.ER. PO ONE (08:30)
[2016-11-04] MEDS: POTASSIUM CHLORIDE 10 MEQ TABLET.ER. PO SCH ×2 (08:33→17:10)
[2016-11-04] MEDS: NITROFURANTOIN MONOHYD/M-CRYST 100 MG CAPSULE. PO SCH ×2 (08:33→20:38)
[2016-11-04] MEDS: MULTIVITAMIN with MINERAL TABLET. PO SCH (08:34)
[2016-11-04] MEDS: FENOFIBRATE,MICRONIZED 134 MG CAPSULE PO SCH (08:34)
[2016-11-04] MEDS: SPIRONOLACTONE 25 MG TABLET PO SCH (08:34)
[2016-11-04] MEDS: ASPIRIN 81 MG TAB.CHEW PO SCH (08:34)
[2016-11-04] MEDS: CARVEDILOL 12.5 MG TABLET PO SCH ×2 (08:34→17:08)
[2016-11-04] MEDS: CHOLECALCIFEROL (VITAMIN D3) 5,000 UNIT CAPSULE PO SCH (08:34)
[2016-11-04] MEDS: CALCIUM CARBONATE 500 MG TABLET PO SCH (08:34)
[2016-11-04] MEDS: HEPARIN 25,000UTS/500ML PREMIX 500 ML IV PRN ×2 (08:38→23:42)
--- NOTE | 2016-11-04 11:39 | PDOC ---
SUBJECTIVE Subjective continue with bloody urine , feels ok OBJECTIVE Objective VSS Vital Signs Vital Signs Date Time Temp Pulse Resp B/P Pulse Ox O2 Delivery O2 Flow Rate FiO2 11/04/16 11:00 98.9 82 22 134/87 96 Room Air 98.9 11/04/16 08:34 84 141/90 11/04/16 08:00 Room Air 11/04/16 07:00 97.2 84 20 141/90 96 97.2 11/04/16 03:00 98.6 84 18 138/83 99 Room Air 98.6 11/04/16 00:50 99.3 83 18 151/98 99.3 11/03/16 23:48 98.0 86 16 128/88 98.0 11/03/16 22:50 98.4 84 134/90 96 Room Air 98.4 11/03/16 22:46 98.4 75 16 134/90 98.4 11/03/16 22:33 98.7 84 16 137/81 98.7 11/03/16 20:41 99 140/89 11/03/16 20:00 Room Air 11/03/16 19:00 98.2 76 18 91/67 95 Room Air 98.2 11/03/16 18:00 98.2 91 19 111/73 96 Room Air 98.2 11/03/16 17:32 84 140/99 11/03/16 16:23 98.3 84 18 140/99 98.3 11/03/16 15:14 98.2 82 16 132/83 98.2 11/03/16 14:46 97.6 95 18 131/78 97 Room Air 97.6 11/03/16 14:45 98.2 95 18 131/78 98.2 I & O Intake and Output 11/04/16 07:00 Intake Total 1240 ml Output Total 100 ml Balance 1140 ml Intake Oral 930 ml Blood Product IV Normal Saline Flush 310 ml Output Urine Total 100 ml # Voids 6 # Bowel Movements 1 PHYSICAL EXAM Physical Exam heart RRR abd soft nonetender ext mld swelling LLE ASSESSMENT/PLAN Assessment/Plan 1. Left leg deep venous thrombosis. failure on Pradaxa in cancer pt agree with heparin then correction Lovenox ? IVC filter 2. Gross hematuria. stents in place , urology following 3. Diffusely large B cell lymphoma. 4. Hypokalemia. replacing 5. Anemia.s/p transfusion 6. Chronic renal failure. Problems: COMMENT Lab Laboratory Tests Test 11/03/16 13:35 11/03/16 16:40 11/04/16 00:40 11/04/16 04:20 Urine Collection Type Unknown Urine Color Yellow Urine Clarity Clear Urine pH 8.0 Urine Specific [place] 1.015 Urine Protein 100mg/dL (NEG-TRACE) Urine Glucose (UA) Negativemg/dL (NEG) Urine Ketones (Stick) Negativemg/dL (NEG) Urine Blood Large (NEG) Urine Nitrite Negative (NEG) Urine Bilirubin Negative (NEG) Urine Urobilinogen Dipstick 1.0mg/dL (0.2 mg/dL) Urine Leukocyte Esterase Negative (NEG) Urine RBC Tntc/HPF (0-2) Urine WBC Occ/HPF (0-4) Urine Squamous Epithelial Cells None/LPF Urine Bacteria 0/HPF (0-FEW) Heparin Anti-Xa Act, Unfractionated < 0.10IU/mL (0.30-0.70) 0.01IU/mL (0.30-0.70) 0.30IU/mL (0.30-0.70) White Blood Count 2.6x10^3/uL (4.0-11.0) Red Blood Count 2.85x10^6/uL (4.30-5.70) Hemoglobin 8.7g/dL (13.0-17.5) Hematocrit 25.8% (39.0-53.0) Mean Corpuscular Volume 91fL (79-100) Mean Corpuscular Hemoglobin 31pg (25-35) Mean Corpuscular Hemoglobin Concent 34g/dL (31-37) Red Cell Distribution Width 14.6% (11.5-14.5) Platelet Count 137x10^3/uL (140-400) Sodium Level 144mmol/L (136-145) Potassium Level 3.3mmol/L (3.5-5.1) Chloride Level 108mmol/L (98-107) Carbon Dioxide Level 29mmol/L (21-32) Anion Gap 7 (6-14) Blood Urea Nitrogen 17mg/dL (8-26) Creatinine 1.4mg/dL (0.7-1.3) Estimated GFR (Cockcroft-Gault) 48.4 Glucose Level 91mg/dL (70-99) Calcium Level 8.6mg/dL (8.5-10.1) JOSE LUIS HEATON MD Nov 04, 2016 11:39
--- NOTE | 2016-11-04 13:02 | PDOC ---
PROGRESS NOTES Subjective Subjective 81yo recent diagnosis DLBCL with bulky retroperitoneal mass causing bilateral ureteral obstruction. Stents placed and R-CHOP started 10/19/16. At rehab when developed LLE swelling on Pradaxa. U/S showed DVT. Admitted and started heparin gtt. Today feels OK. Still with LLE discomfort from swelling. Remains with difficulty ambulating. Appetite poor. Objective Objective Vital Signs Date Time Temp Pulse Resp B/P Pulse Ox O2 Delivery O2 Flow Rate FiO2 11/04/16 11:00 98.9 82 22 134/87 96 Room Air 98.9 Intake and Output 11/04/16 07:00 Intake Total 1240 ml Output Total 100 ml Balance 1140 ml Intake Oral 930 ml Blood Product IV Normal Saline Flush 310 ml Output Urine Total 100 ml # Voids 6 # Bowel Movements 1 Physical Exam Abdomen: Soft, No tenderness Heart: Regular rate Extremities: No clubbing, Other (LLE edema pitting) General: Alert, Oriented X3 HEENT: Atraumatic Lungs: Clear to auscultation Neck: Supple Neuro: Normal speech Psych/Mental Status: Mental status NL Skin: No rashes Assessment Assessment Acute LLE DVT while therapeutic on Pradaxa DLBCL [id number] R-CHOP Anemia Hematuria Bilateral ureteral obstruction s/p stent placement Plan Plan of Care Continue heparin gtt per protocol Trend hemoglobin and transfuse to Hb >8 while therapeutic Stop Granix Will consider transition to Lovenox depending on hematuria and urology evaluation. Will follow with you. Comment Review of Relevant I have reviewed the following items juan (where applicable) has been applied. Labs Laboratory Tests Test 11/02/16 19:40 11/03/16 05:55 11/03/16 11:30 11/03/16 11:35 White Blood Count 2.4x10^3/uL (4.0-11.0) 2.3x10^3/uL (4.0-11.0) 2.5x10^3/uL (4.0-11.0) Red Blood Count 2.49x10^6/uL (4.30-5.70) 2.36x10^6/uL (4.30-5.70) 2.48x10^6/uL (4.30-5.70) Hemoglobin 7.7g/dL (13.0-17.5) 7.2g/dL (13.0-17.5) 7.5g/dL (13.0-17.5) Hematocrit 22.9% (39.0-53.0) 21.4% (39.0-53.0) 22.4% (39.0-53.0) Mean Corpuscular Volume 92fL (79-100) 91fL (79-100) 91fL (79-100) Mean Corpuscular Hemoglobin 31pg (25-35) 30pg (25-35) 31pg (25-35) Mean Corpuscular Hemoglobin Concent 34g/dL (31-37) 33g/dL (31-37) 34g/dL (31-37) Red Cell Distribution Width 13.8% (11.5-14.5) 14.3% (11.5-14.5) 14.3% (11.5-14.5) Platelet Count 124x10^3/uL (140-400) 122x10^3/uL (140-400) 133x10^3/uL (140-400) Neutrophils (%) (Auto) 72% (31-73) 71% (31-73) 74% (31-73) Lymphocytes (%) (Auto) 16% (24-48) 16% (24-48) 14% (24-48) Monocytes (%) (Auto) 11% (0-9) 12% (0-9) 11% (0-9) Eosinophils (%) (Auto) 0% (0-3) 0% (0-3) 0% (0-3) Basophils (%) (Auto) 0% (0-3) 1% (0-3) 1% (0-3) Neutrophils # (Auto) 1.7x10^3uL (1.8-7.7) 1.6x10^3uL (1.8-7.7) 1.8x10^3uL (1.8-7.7) Lymphocytes # (Auto) 0.4x10^3/uL (1.0-4.8) 0.4x10^3/uL (1.0-4.8) 0.3x10^3/uL (1.0-4.8) Monocytes # (Auto) 0.3x10^3/uL (0.0-1.1) 0.3x10^3/uL (0.0-1.1) 0.3x10^3/uL (0.0-1.1) Eosinophils # (Auto) 0.0x10^3/uL (0.0-0.7) 0.0x10^3/uL (0.0-0.7) 0.0x10^3/uL (0.0-0.7) Basophils # (Auto) 0.0x10^3/uL (0.0-0.2) 0.0x10^3/uL (0.0-0.2) 0.0x10^3/uL (0.0-0.2) Segmented Neutrophils % 69% (35-66) Lymphocytes % 20% (24-48) Monocytes % 10% (0-10) Myelocytes % 1% (0-0) Platelet Estimate Adequate (ADEQUATE) Hypochromasia Slight Anisocytosis Slight Heparin Anti-Xa Act, Unfractionated 0.20IU/mL (0.30-0.70) 0.50IU/mL (0.30-0.70) Sodium Level 147mmol/L (136-145) 146mmol/L (136-145) Potassium Level 2.9mmol/L (3.5-5.1) 3.9mmol/L (3.5-5.1) Chloride Level 109mmol/L (98-107) 108mmol/L (98-107) Carbon Dioxide Level 30mmol/L (21-32) 31mmol/L (21-32) Anion Gap 8 (6-14) 7 (6-14) Blood Urea Nitrogen 20mg/dL (8-26) 19mg/dL (8-26) Creatinine 1.5mg/dL (0.7-1.3) 1.6mg/dL (0.7-1.3) Estimated GFR (Cockcroft-Gault) 44.7 41.5 Glucose Level 92mg/dL (70-99) 101mg/dL (70-99) Calcium Level 8.6mg/dL (8.5-10.1) 8.9mg/dL (8.5-10.1) Test 11/03/16 13:35 11/03/16 16:40 11/04/16 00:40 11/04/16 04:20 Urine Collection Type Unknown Urine Color Yellow Urine Clarity Clear Urine pH 8.0 Urine Specific Girard 1.015 Urine Protein 100mg/dL (NEG-TRACE) Urine Glucose (UA) Negativemg/dL (NEG) Urine Ketones (Stick) Negativemg/dL (NEG) Urine Blood Large (NEG) Urine Nitrite Negative (NEG) Urine Bilirubin Negative (NEG) Urine Urobilinogen Dipstick 1.0mg/dL (0.2 mg/dL) Urine Leukocyte Esterase Negative (NEG) Urine RBC Tntc/HPF (0-2) Urine WBC Occ/HPF (0-4) Urine Squamous Epithelial Cells None/LPF Urine Bacteria 0/HPF (0-FEW) Heparin Anti-Xa Act, Unfractionated < 0.10IU/mL (0.30-0.70) 0.01IU/mL (0.30-0.70) 0.30IU/mL (0.30-0.70) White Blood Count 2.6x10^3/uL (4.0-11.0) Red Blood Count 2.85x10^6/uL (4.30-5.70) Hemoglobin 8.7g/dL (13.0-17.5) Hematocrit 25.8% (39.0-53.0) Mean Corpuscular Volume 91fL (79-100) Mean Corpuscular Hemoglobin 31pg (25-35) Mean Corpuscular Hemoglobin Concent 34g/dL (31-37) Red Cell Distribution Width 14.6% (11.5-14.5) Platelet Count 137x10^3/uL (140-400) Sodium Level 144mmol/L (136-145) Potassium Level 3.3mmol/L (3.5-5.1) Chloride Level 108mmol/L (98-107) Carbon Dioxide Level 29mmol/L (21-32) Anion Gap 7 (6-14) Blood Urea Nitrogen 17mg/dL (8-26) Creatinine 1.4mg/dL (0.7-1.3) Estimated GFR (Cockcroft-Gault) 48.4 Glucose Level 91mg/dL (70-99) Calcium Level 8.6mg/dL (8.5-10.1) Test 11/04/16 11:58 Heparin Anti-Xa Act, Unfractionated 0.48IU/mL (0.30-0.70) Laboratory Tests Test 11/03/16 13:35 11/03/16 16:40 11/04/16 00:40 11/04/16 04:20 Urine Collection Type Unknown Urine Color Yellow Urine Clarity Clear Urine pH 8.0 Urine Specific Girard 1.015 Urine Protein 100mg/dL (NEG-TRACE) Urine Glucose (UA) Negativemg/dL (NEG) Urine Ketones (Stick) Negativemg/dL (NEG) Urine Blood Large (NEG) Urine Nitrite Negative (NEG) Urine Bilirubin Negative (NEG) Urine Urobilinogen Dipstick 1.0mg/dL (0.2 mg/dL) Urine Leukocyte Esterase Negative (NEG) Urine RBC Tntc/HPF (0-2) Urine WBC Occ/HPF (0-4) Urine Squamous Epithelial Cells None/LPF Urine Bacteria 0/HPF (0-FEW) Heparin Anti-Xa Act, Unfractionated < 0.10IU/mL (0.30-0.70) 0.01IU/mL (0.30-0.70) 0.30IU/mL (0.30-0.70) White Blood Count 2.6x10^3/uL (4.0-11.0) Red Blood Count 2.85x10^6/uL (4.30-5.70) Hemoglobin 8.7g/dL (13.0-17.5) Hematocrit 25.8% (39.0-53.0) Mean Corpuscular Volume 91fL (79-100) Mean Corpuscular Hemoglobin 31pg (25-35) Mean Corpuscular Hemoglobin Concent 34g/dL (31-37) Red Cell Distribution Width 14.6% (11.5-14.5) Platelet Count 137x10^3/uL (140-400) Sodium Level 144mmol/L (136-145) Potassium Level 3.3mmol/L (3.5-5.1) Chloride Level 108mmol/L (98-107) Carbon Dioxide Level 29mmol/L (21-32) Anion Gap 7 (6-14) Blood Urea Nitrogen 17mg/dL (8-26) Creatinine 1.4mg/dL (0.7-1.3) Estimated GFR (Cockcroft-Gault) 48.4 Glucose Level 91mg/dL (70-99) Calcium Level 8.6mg/dL (8.5-10.1) Test 11/04/16 11:58 Heparin Anti-Xa Act, Unfractionated 0.48IU/mL (0.30-0.70) Medications Current Medications Heparin Sodium/ Dextrose 500 ml @ 0 mls/hr CONT PRN IV SEE I/O RECORD; Start at 18:00; Stop 11/02/16 at 19:55; Status DC Aspirin (Children'S Aspirin) 81 mg DAILY PO Last administered on 11/04/16 08: 34; Start 11/03/16 at 09:00 Sertraline HCl (Zoloft) 50 mg HS PO Last administered on 11/03/16 20:40; Start 11/02/16 at 21:00 Spironolactone (Aldactone) 25 mg DAILY PO Last administered on 11/04/16 08:34 ; Start 11/03/16 at 09:00 Tamsulosin HCl (Flomax) 0.4 mg HS PO Last administered on 11/03/16 20:40; Start 11/02/16 at 21:00 Carvedilol (Coreg) 25 mg BIDWMEALS PO Last administered on 11/04/16 08:34; Start 11/02/16 at 20:30 Vitamin D (Vitamin D3) 5,000 unit DAILY PO Last administered on 11/04/16 08:34 ; Start 11/03/16 at 09:00 Non-Formulary Medication 1 each HS PO ; Start 11/02/16 at 21:00; Status UNV Fenofibrate (Lofibra) 134 mg DAILY PO Last administered on 11/04/16 08:34; Start 11/03/16 at 09:00 Losartan Potassium (Cozaar) 100 mg QHS PO Last administered on 11/03/16 20:41 ; Start 11/02/16 at 21:00 Multivitamins/ Calcium (Thera M Plus) 1 tab DAILY PO Last administered on 08:34; Start 11/03/16 at 09:00 Potassium Chloride (Klor-Con) 10 meq BIDWMEALS PO Last administered on 08:33; Start 11/03/16 at 08:00 Calcium Carbonate/ Glycine 500 mg 500 mg DAILY PO Last administered on 08:34; Start 11/03/16 at 09:00 Heparin Sodium/ Dextrose 500 ml @ 0 mls/hr CONT PRN IV SEE I/O RECORD Last administered on 11/04/16 08:38; Start 11/02/16 at 20:00 Heparin Sodium (Porcine) 2,800 unit PRN Q6HRS PRN IV FOR UFH LEVEL LESS THAN 0.2 Last administered on 11/03/16 17:37; Start 11/02/16 at 20:00 Heparin Sodium (Porcine) 1,400 unit PRN Q6HRS PRN IV FOR UFH LEVEL 0.2 - 0.29 Last administered on 11/03/16 08:16; Start 11/02/16 at 20:00 EZETIMIBE (Zetia) 10 mg QHS PO Last administered on 11/03/16 20:40; Start at 21:00 Simvastatin (Zocor) 80 mg QHS PO Last administered on 11/03/16 20:41; Start at 21:00 Potassium Chloride (Klor-Con) 40 meq 1X ONCE PO Last administered on 08:01; Start 11/03/16 at 07:00; Stop 11/03/16 at 07:01; Status DC Tbo-Filgrastim (Granix) 480 mcg QHS SQ ; Start 11/03/16 at 21:00 Nitrofurantoin Macrocrystals (Macrobid) 100 mg BID PO Last administered on 11/04 08:33; Start 11/03/16 at 10:00 Info (Anti-Coagulation Monitoring By Pharmacy) 1 each PRN DAILY PRN MC SEE COMMENTS Last administered on 11/03/16 15:48; Start 11/03/16 at 16:00 Potassium Chloride (Klor-Con) 40 meq 1X ONCE PO Last administered on 08:43; Start 11/04/16 at 08:30; Stop 11/04/16 at 08:33; Status DC Active Scripts Active Reported Potassium Chloride 10 Meq Capsule.er 10 Meq PO BID Fenofibrate 50 Mg Capsule 125 Mg PO DAILY Calcium (Calcium Carbonate) 600 Mg Tablet 600 Mg PO Vytorin 10-80 Mg Tablet (Ezetimibe/Simvastatin) 1 Each Tablet 1 Each PO HS Multi-Vitamin Daily (Multivitamin) 1 Each Tablet 1 Each PO DAILY Vitamin D3 (Cholecalciferol (Vitamin D3)) 5,000 Unit Tablet 1 Tab PO DAILY Zoloft (Sertraline Hcl) 50 Mg Tablet 1 Tab PO HS Tamsulosin Hcl 0.4 Mg Cap.er.24h 1 Cap PO HS Losartan Potassium 100 Mg Tablet 100 Mg PO HS Spironolactone 25 Mg Tablet 1 Tab PO DAILY Aspirin 81 Mg Tab.chew 1 Tab PO DAILY Carvedilol 25 Mg Tablet 1 Tab PO BID Vitals/I & O Vital Sign - Last 24 Hours 11/03/16 11/03/16 11/03/16 11/03/16 14:45 14:46 15:14 16:23 Temp 98.2 97.6 98.2 98.3 98.2 97.6 98.2 98.3 Pulse 95 95 82 84 Resp 18 18 16 18 B/P 131/78 131/78 132/83 140/99 Pulse Ox 97 O2 Delivery Room Air 11/03/16 11/03/16 11/03/16 11/03/16 17:32 18:00 19:00 20:00 Temp 98.2 98.2 98.2 98.2 Pulse 84 91 76 Resp 18 B/P 140/99 111/73 91/67 Pulse Ox 96 95 O2 Delivery Room Air Room Air Room Air 11/03/16 11/03/16 11/03/16 11/03/16 20:41 22:33 22:46 22:50 Temp 98.7 98.4 98.4 98.7 98.4 98.4 Pulse 99 84 75 84 Resp 16 B/P 140/89 137/81 134/90 134/90 Pulse Ox 96 O2 Delivery Room Air 11/03/16 11/04/16 11/04/16 11/04/16 23:48 00:50 03:00 07:00 Temp 98.0 99.3 98.6 97.2 98.0 99.3 98.6 97.2 Pulse 86 83 84 84 Resp 16 18 18 20 B/P 128/88 151/98 138/83 141/90 Pulse Ox 99 96 O2 Delivery Room Air 11/04/16 11/04/1617 08:00 08:34 11:00 Temp 98.9 98.9 Pulse 84 82 Resp 22 B/P 141/90 134/87 Pulse Ox 96 O2 Delivery Room Air Room Air Intake and Output 11/03/16 11/03/16 11/04/16 15:00 23:00 07:00 Intake Total 190 ml 560 ml 490 ml Output Total 100 ml Balance 90 ml 560 ml 490 ml JAKOB SMART MD Nov 04, 2016 13:02
--- NOTE | 2016-11-04 14:14 | CONS ---
DATE OF CONSULTATION: 11/03/2016 REQUESTING PHYSICIAN: Dr. Abisai Kowalski REASON FOR CONSULTATION: Non-Hodgkin's lymphoma and acute DVT. HISTORY OF PRESENT ILLNESS: The patient is an 81-year-old gentleman who was diagnosed with diffuse large B cell lymphoma in the abdomen by CT-guided biopsy on 10/13/2016. He underwent chemotherapy with CHOP and rituximab. On 10/19/2016 he had bilateral hydronephrosis and ureteral stents were placed. He was subsequently discharged to [facility]. He then developed swelling of the left lower extremity. He also noticed worsening blood in the urine. He underwent venous Doppler on 11/02/2016 that revealed extensive DVT of the left lower extremity. He was on Pradaxa; however, because of worsening hematuria he was admitted to [facility] on 11/02/2016. Pradaxa was discontinued, and he was started on IV heparin. The patient reports that the bleeding has since improved. PAST MEDICAL HISTORY: Melanoma, chronic kidney disease, abdominal aortic aneurysm, atrial fibrillation, benign prostatic hypertrophy, atherosclerotic heart disease, depression. SOCIAL HISTORY: Nonsmoker. FAMILY HISTORY: Negative for hematologic disorders. Has history of heart attack in his mother. REVIEW OF SYSTEMS: A 12-point review of system was performed. Pertinent positives are mentioned in the history of present illness. Rest of the system review is negative. PHYSICAL EXAMINATION: GENERAL APPEARANCE: The patient is an 81-year-old gentleman who is in no acute cardiorespiratory distress. VITAL SIGNS: Blood pressure 140/99, temperature 98.3. HEENT: Head atraumatic, normocephalic. Eyes: No icterus. NECK: Supple. CHEST: Bilaterally symmetrical. HEART: S1, S2 normal. ABDOMEN: Soft, nontender. CENTRAL NERVOUS SYSTEM: No focal deficits. LYMPHATICS: No lymphadenopathy. SKIN: No rashes. PSYCHOLOGIC: Mood and affect are appropriate. MUSCULOSKELETAL: He has left lower extremity edema. LABORATORY DATA: WBC 2.5, hemoglobin 7.5, platelet count 133. Creatinine 1.6. IMPRESSION AND PLAN: 1. Acute deep venous thrombosis, left lower extremity, diagnosed on 11/02/2016. In view of ongoing hematuria, I recommended to stop Pradaxa and start him on heparin drip which can be stopped if he has worsening hematuria and also can be potentially reversed if he has serious bleeding. He mentions that the hematuria has actually improved. Continue to monitor closely. 2. 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 Plan cycle #2 of chemotherapy on 11/09/2016. 3. Hematuria. Appreciate urology consultation. 4. Anemia. Hemoglobin is worse due to hematuria and chemotherapy. Plan 2 units of PRBC transfusion. 5. Neutropenia secondary to chemotherapy. I have ordered Granix. 6. He has also had recent urinary tract infection and hence I would continue Granix for now. JENNIFER QURESHI MD DR: KIM/miranda JOB#: [id number] / [id number]
[2016-11-04] MEDS: TAMSULOSIN 0.4 MG CAP.ER.24H. PO SCH (20:38)
[2016-11-04] MEDS: SIMVASTATIN 40 MG TABLET. PO SCH (20:38)
[2016-11-04] MEDS: SERTRALINE 50 MG TABLET. PO SCH (20:38)
[2016-11-04] MEDS: EZETIMIBE 10 MG TABLET PO SCH (20:38)
[2016-11-04] MEDS: TBO-FILGRASTIM 480 MCG/0.8 ML SYRINGE. SQ SCH (20:39)
[2016-11-04] MEDS: LOSARTAN POTASSIUM 50 MG TABLET. PO SCH (20:39)
[2016-11-05 03:00] VITALS: BP 154/79
[2016-11-05 05:22] LABS: HEMATOCRIT 25.8 % (39.0-53.0); HEMOGLOBIN 8.8 g/dL (13.0-17.5); RED BLOOD COUNT 2.9 x10^6/uL (4.30-5.70); RED CELL DISTRIBUTION WIDTH 14.6 % (11.5-14.5)
[2016-11-05 05:35] LABS: CALCIUM 8.9 mg/dL (8.5-10.1); CREATININE 1.4 mg/dL (0.7-1.3); GFR 48.4; POTASSIUM 3.7 mmol/L (3.5-5.1)
[2016-11-05 05:35] LABS: WHITE BLOOD COUNT 14.3 x10^3/uL (4.0-11.0)
[2016-11-05] MEDS: HEPARIN for IV BOLUS 10,000 UNIT/10 ML VIAL. IV PRN (06:08)
[2016-11-05 07:00] VITALS: BP 134/92
[2016-11-05] MEDS: POTASSIUM CHLORIDE 10 MEQ TABLET.ER. PO SCH ×2 (08:33→17:51)
[2016-11-05] MEDS: ASPIRIN 81 MG TAB.CHEW PO SCH (08:33)
[2016-11-05] MEDS: CARVEDILOL 12.5 MG TABLET PO SCH ×2 (08:34→17:51)
[2016-11-05] MEDS: MULTIVITAMIN with MINERAL TABLET. PO SCH (08:34)
[2016-11-05] MEDS: CALCIUM CARBONATE 500 MG TABLET PO SCH (08:34)
[2016-11-05] MEDS: SPIRONOLACTONE 25 MG TABLET PO SCH (08:34)
[2016-11-05] MEDS: NITROFURANTOIN MONOHYD/M-CRYST 100 MG CAPSULE. PO SCH ×2 (08:34→20:30)
[2016-11-05] MEDS: CHOLECALCIFEROL (VITAMIN D3) 5,000 UNIT CAPSULE PO SCH (08:34)
[2016-11-05] MEDS: FENOFIBRATE,MICRONIZED 134 MG CAPSULE PO SCH (08:34)
[2016-11-05 11:00] VITALS: BP 140/89
--- NOTE | 2016-11-05 12:11 | PDOC ---
SUBJECTIVE Subjective some discomfort LLE, family visiting feels ok, still bloody urine OBJECTIVE Vital Signs Vital Signs Date Time Temp Pulse Resp B/P Pulse Ox O2 Delivery O2 Flow Rate FiO2 11/05/16 11:00 97.9 88 22 140/89 97 Room Air 97.9 11/05/16 08:34 93 134/92 11/05/16 08:00 Room Air 11/05/16 07:00 98.0 93 20 134/92 98 Room Air 98.0 11/05/16 03:00 97.9 76 18 154/79 95 Room Air 97.9 11/04/16 23:00 97.9 83 19 135/83 95 Room Air 97.9 11/04/16 20:39 77 118/80 11/04/16 20:00 Room Air 11/04/16 19:00 98.0 76 19 116/73 97 Room Air 98.0 11/04/16 17:08 100 146/93 11/04/16 15:00 97.9 100 18 146/93 96 Room Air 97.9 I & O Intake and Output 11/05/16 07:00 Intake Total 540 ml Balance 540 ml Intake Oral 540 ml # Voids 15 # Bowel Movements 2 PHYSICAL EXAM Physical Exam still swelling LLE , no change in exam otherwise ASSESSMENT/PLAN Assessment/Plan 1. Left leg deep venous thrombosis. failure on Pradaxa in cancer pt agree with heparin then bioinformatician Lovenox ? IVC filter can be chalenging with his retroperitoneal mass 2. Gross hematuria. stents in place , urology following 3. Diffusely large B cell lymphoma. 4. Hypokalemia. replaced 5. Anemia.s/p transfusion 6. Chronic renal failure. 7. WBC up , Granix stopped Problems: COMMENT Lab Laboratory Tests Test 11/05/16 04:15 11/05/16 04:45 White Blood Count 14.3x10^3/uL (4.0-11.0) Red Blood Count 2.90x10^6/uL (4.30-5.70) Hemoglobin 8.8g/dL (13.0-17.5) Hematocrit 25.8% (39.0-53.0) Mean Corpuscular Volume 89fL (79-100) Mean Corpuscular Hemoglobin 30pg (25-35) Mean Corpuscular Hemoglobin Concent 34g/dL (31-37) Red Cell Distribution Width 14.6% (11.5-14.5) Platelet Count 172x10^3/uL (140-400) Heparin Anti-Xa Act, Unfractionated 0.27IU/mL (0.30-0.70) Sodium Level 141mmol/L (136-145) Potassium Level 3.7mmol/L (3.5-5.1) Chloride Level 106mmol/L (98-107) Carbon Dioxide Level 28mmol/L (21-32) Anion Gap 7 (6-14) Blood Urea Nitrogen 15mg/dL (8-26) Creatinine 1.4mg/dL (0.7-1.3) Estimated GFR (Cockcroft-Gault) 48.4 Glucose Level 87mg/dL (70-99) Calcium Level 8.9mg/dL (8.5-10.1) JOSE LUIS HEATON MD Nov 05, 2016 12:11
--- NOTE | 2016-11-05 12:28 | PDOC ---
PROGRESS NOTES Subjective Subjective 81yo recent diagnosis DLBCL with bulky retroperitoneal mass causing bilateral ureteral obstruction. Stents placed and R-CHOP started 10/19/16. At rehab when developed LLE swelling on Pradaxa. U/S showed DVT. Admitted and started heparin gtt. Today feels OK. Still with LLE discomfort from swelling. Remains with difficulty ambulating. Appetite poor. Objective Objective Vital Signs Date Time Temp Pulse Resp B/P Pulse Ox O2 Delivery O2 Flow Rate FiO2 11/05/16 11:00 97.9 88 22 140/89 97 Room Air 97.9 Intake and Output 11/05/16 07:00 Intake Total 540 ml Balance 540 ml Intake Oral 540 ml # Voids 15 # Bowel Movements 2 Physical Exam Abdomen: Soft Heart: Regular rate Extremities: Other (LLE edema, stable from yesterday) General: Alert, Oriented X3, Cooperative HEENT: Atraumatic Lungs: Other (No respiratory distress) Neck: Supple Neuro: Normal speech Psych/Mental Status: Mental status NL Skin: No rashes Assessment Assessment Assessment Acute LLE DVT while therapeutic on Pradaxa DLBCL [id number] R-CHOP Anemia Hematuria Bilateral ureteral obstruction s/p stent placement Plan Continue heparin gtt per protocol Trend hemoglobin and transfuse to Hb >8 while therapeutic Hemoglobin stable at this point and mild hematuria is no worse on anticoagulation. After next cycle of chemotherapy, may be able to remove stents if mass responding well radiographically. Will consider transition to Lovenox depending on hematuria and urology evaluation. Dr Ross to see him tomorrow and make that determination. Comment Review of Relevant I have reviewed the following items juan (where applicable) has been applied. Labs Laboratory Tests Test 11/03/16 13:35 11/03/16 16:40 11/04/16 00:40 11/04/16 04:20 Urine Collection Type Unknown Urine Color Yellow Urine Clarity Clear Urine pH 8.0 Urine Specific [place] 1.015 Urine Protein 100mg/dL (NEG-TRACE) Urine Glucose (UA) Negativemg/dL (NEG) Urine Ketones (Stick) Negativemg/dL (NEG) Urine Blood Large (NEG) Urine Nitrite Negative (NEG) Urine Bilirubin Negative (NEG) Urine Urobilinogen Dipstick 1.0mg/dL (0.2 mg/dL) Urine Leukocyte Esterase Negative (NEG) Urine RBC Tntc/HPF (0-2) Urine WBC Occ/HPF (0-4) Urine Squamous Epithelial Cells None/LPF Urine Bacteria 0/HPF (0-FEW) Heparin Anti-Xa Act, Unfractionated < 0.10IU/mL (0.30-0.70) 0.01IU/mL (0.30-0.70) 0.30IU/mL (0.30-0.70) White Blood Count 2.6x10^3/uL (4.0-11.0) Red Blood Count 2.85x10^6/uL (4.30-5.70) Hemoglobin 8.7g/dL (13.0-17.5) Hematocrit 25.8% (39.0-53.0) Mean Corpuscular Volume 91fL (79-100) Mean Corpuscular Hemoglobin 31pg (25-35) Mean Corpuscular Hemoglobin Concent 34g/dL (31-37) Red Cell Distribution Width 14.6% (11.5-14.5) Platelet Count 137x10^3/uL (140-400) Sodium Level 144mmol/L (136-145) Potassium Level 3.3mmol/L (3.5-5.1) Chloride Level 108mmol/L (98-107) Carbon Dioxide Level 29mmol/L (21-32) Anion Gap 7 (6-14) Blood Urea Nitrogen 17mg/dL (8-26) Creatinine 1.4mg/dL (0.7-1.3) Estimated GFR (Cockcroft-Gault) 48.4 Glucose Level 91mg/dL (70-99) Calcium Level 8.6mg/dL (8.5-10.1) Test 11/04/16 11:58 11/05/16 04:15 11/05/16 04:45 Heparin Anti-Xa Act, Unfractionated 0.48IU/mL (0.30-0.70) 0.27IU/mL (0.30-0.70) White Blood Count 14.3x10^3/uL (4.0-11.0) Red Blood Count 2.90x10^6/uL (4.30-5.70) Hemoglobin 8.8g/dL (13.0-17.5) Hematocrit 25.8% (39.0-53.0) Mean Corpuscular Volume 89fL (79-100) Mean Corpuscular Hemoglobin 30pg (25-35) Mean Corpuscular Hemoglobin Concent 34g/dL (31-37) Red Cell Distribution Width 14.6% (11.5-14.5) Platelet Count 172x10^3/uL (140-400) Sodium Level 141mmol/L (136-145) Potassium Level 3.7mmol/L (3.5-5.1) Chloride Level 106mmol/L (98-107) Carbon Dioxide Level 28mmol/L (21-32) Anion Gap 7 (6-14) Blood Urea Nitrogen 15mg/dL (8-26) Creatinine 1.4mg/dL (0.7-1.3) Estimated GFR (Cockcroft-Gault) 48.4 Glucose Level 87mg/dL (70-99) Calcium Level 8.9mg/dL (8.5-10.1) Laboratory Tests Test 11/05/16 04:15 11/05/16 04:45 White Blood Count 14.3x10^3/uL (4.0-11.0) Red Blood Count 2.90x10^6/uL (4.30-5.70) Hemoglobin 8.8g/dL (13.0-17.5) Hematocrit 25.8% (39.0-53.0) Mean Corpuscular Volume 89fL (79-100) Mean Corpuscular Hemoglobin 30pg (25-35) Mean Corpuscular Hemoglobin Concent 34g/dL (31-37) Red Cell Distribution Width 14.6% (11.5-14.5) Platelet Count 172x10^3/uL (140-400) Heparin Anti-Xa Act, Unfractionated 0.27IU/mL (0.30-0.70) Sodium Level 141mmol/L (136-145) Potassium Level 3.7mmol/L (3.5-5.1) Chloride Level 106mmol/L (98-107) Carbon Dioxide Level 28mmol/L (21-32) Anion Gap 7 (6-14) Blood Urea Nitrogen 15mg/dL (8-26) Creatinine 1.4mg/dL (0.7-1.3) Estimated GFR (Cockcroft-Gault) 48.4 Glucose Level 87mg/dL (70-99) Calcium Level 8.9mg/dL (8.5-10.1) Medications Current Medications Heparin Sodium/ Dextrose 500 ml @ 0 mls/hr CONT PRN IV SEE I/O RECORD; Start at 18:00; Stop 11/02/16 at 19:55; Status DC Aspirin (Children'S Aspirin) 81 mg DAILY PO Last administered on 11/05/16 08: 33; Start 11/03/16 at 09:00 Sertraline HCl (Zoloft) 50 mg HS PO Last administered on 11/04/16 20:38; Start 11/02/16 at 21:00 Spironolactone (Aldactone) 25 mg DAILY PO Last administered on 11/05/16 08:34 ; Start 11/03/16 at 09:00 Tamsulosin HCl (Flomax) 0.4 mg HS PO Last administered on 11/04/16 20:38; Start 11/02/16 at 21:00 Carvedilol (Coreg) 25 mg BIDWMEALS PO Last administered on 11/05/16 08:34; Start 11/02/16 at 20:30 Vitamin D (Vitamin D3) 5,000 unit DAILY PO Last administered on 11/05/16 08:34 ; Start 11/03/16 at 09:00 Non-Formulary Medication 1 each HS PO ; Start 11/02/16 at 21:00; Status UNV Fenofibrate (Lofibra) 134 mg DAILY PO Last administered on 11/05/16 08:34; Start 11/03/16 at 09:00 Losartan Potassium (Cozaar) 100 mg QHS PO Last administered on 11/04/16 20:39 ; Start 11/02/16 at 21:00 Multivitamins/ Calcium (Thera M Plus) 1 tab DAILY PO Last administered on 08:34; Start 11/03/16 at 09:00 Potassium Chloride (Klor-Con) 10 meq BIDWMEALS PO Last administered on 08:33; Start 11/03/16 at 08:00 Calcium Carbonate/ Glycine 500 mg 500 mg DAILY PO Last administered on 08:34; Start 11/03/16 at 09:00 Heparin Sodium/ Dextrose 500 ml @ 0 mls/hr CONT PRN IV SEE I/O RECORD Last administered on 11/04/16 23:42; Start 11/02/16 at 20:00 Heparin Sodium (Porcine) 2,800 unit PRN Q6HRS PRN IV FOR UFH LEVEL LESS THAN 0.2 Last administered on 11/03/16 17:37; Start 11/02/16 at 20:00 Heparin Sodium (Porcine) 1,400 unit PRN Q6HRS PRN IV FOR UFH LEVEL 0.2 - 0.29 Last administered on 11/05/16 06:08; Start 11/02/16 at 20:00 EZETIMIBE (Zetia) 10 mg QHS PO Last administered on 11/04/16 20:38; Start at 21:00 Simvastatin (Zocor) 80 mg QHS PO Last administered on 11/04/16 20:38; Start at 21:00 Potassium Chloride (Klor-Con) 40 meq 1X ONCE PO Last administered on 08:01; Start 11/03/16 at 07:00; Stop 11/03/16 at 07:01; Status DC Tbo-Filgrastim (Granix) 480 mcg QHS SQ Last administered on 11/04/16 20:39; Start 11/03/16 at 21:00 Nitrofurantoin Macrocrystals (Macrobid) 100 mg BID PO Last administered on 11/05 08:34; Start 11/03/16 at 10:00 Info (Anti-Coagulation Monitoring By Pharmacy) 1 each PRN DAILY PRN MC SEE COMMENTS Last administered on 11/03/16 15:48; Start 11/03/16 at 16:00 Potassium Chloride (Klor-Con) 40 meq 1X ONCE PO Last administered on 08:43; Start 11/04/16 at 08:30; Stop 11/04/16 at 08:33; Status DC Active Scripts Active Reported Potassium Chloride 10 Meq Capsule.er 10 Meq PO BID Fenofibrate 50 Mg Capsule 125 Mg PO DAILY Calcium (Calcium Carbonate) 600 Mg Tablet 600 Mg PO Vytorin 10-80 Mg Tablet (Ezetimibe/Simvastatin) 1 Each Tablet 1 Each PO HS Multi-Vitamin Daily (Multivitamin) 1 Each Tablet 1 Each PO DAILY Vitamin D3 (Cholecalciferol (Vitamin D3)) 5,000 Unit Tablet 1 Tab PO DAILY Zoloft (Sertraline Hcl) 50 Mg Tablet 1 Tab PO HS Tamsulosin Hcl 0.4 Mg Cap.er.24h 1 Cap PO HS Losartan Potassium 100 Mg Tablet 100 Mg PO HS Spironolactone 25 Mg Tablet 1 Tab PO DAILY Aspirin 81 Mg Tab.chew 1 Tab PO DAILY Carvedilol 25 Mg Tablet 1 Tab PO BID Vitals/I & O Vital Sign - Last 24 Hours 11/04/16 11/04/16 11/04/16 11/04/16 15:00 17:08 19:00 20:00 Temp 97.9 98.0 97.9 98.0 Pulse 100 100 76 Resp 18 19 B/P 146/93 146/93 116/73 Pulse Ox 96 97 O2 Delivery Room Air Room Air Room Air 11/04/16 11/04/16 11/05/16 11/05/16 20:39 23:00 03:00 07:00 Temp 97.9 97.9 98.0 97.9 97.9 98.0 Pulse 77 83 76 93 Resp 19 18 20 B/P 118/80 135/83 154/79 134/92 Pulse Ox 95 95 98 O2 Delivery Room Air Room Air Room Air 11/05/16 11/05/16 11/05/16 08:00 08:34 11:00 Temp 97.9 97.9 Pulse 93 88 Resp 22 B/P 134/92 140/89 Pulse Ox 97 O2 Delivery Room Air Room Air Intake and Output 11/04/16 11/04/16 11/05/16 15:00 23:00 07:00 Intake Total 360 ml 180 ml Balance 360 ml 180 ml JAKOB SMART MD Nov 05, 2016 12:28
[2016-11-05 15:00] VITALS: BP 130/89
[2016-11-05] MEDS: HEPARIN 25,000UTS/500ML PREMIX 500 ML IV PRN (16:10)
[2016-11-05 19:00] VITALS: BP 102/69
[2016-11-05] MEDS: EZETIMIBE 10 MG TABLET PO SCH (20:30)
[2016-11-05] MEDS: SERTRALINE 50 MG TABLET. PO SCH (20:30)
[2016-11-05] MEDS: SIMVASTATIN 40 MG TABLET. PO SCH (20:30)
[2016-11-05] MEDS: TAMSULOSIN 0.4 MG CAP.ER.24H. PO SCH (20:30)
[2016-11-05] MEDS: TBO-FILGRASTIM 480 MCG/0.8 ML SYRINGE. SQ SCH (20:31)
[2016-11-05] MEDS: LOSARTAN POTASSIUM 50 MG TABLET. PO SCH (20:31)
[2016-11-05 23:00] VITALS: BP 134/89
[2016-11-06 02:20] LABS: HEMOGLOBIN 8.6 g/dL (13.0-17.5); RED BLOOD COUNT 2.82 x10^6/uL (4.30-5.70); RED CELL DISTRIBUTION WIDTH 15.1 % (11.5-14.5); WHITE BLOOD COUNT 18.7 x10^3/uL (4.0-11.0)
[2016-11-06 02:23] LABS: CREATININE 1.5 mg/dL (0.7-1.3); GFR 44.7; POTASSIUM 3.7 mmol/L (3.5-5.1)
[2016-11-06 03:08] VITALS: BP 100/58
[2016-11-06] MEDS: HEPARIN 25,000UTS/500ML PREMIX 500 ML IV PRN ×2 (04:29→21:51)
[2016-11-06 07:00] VITALS: BP 120/80
--- NOTE | 2016-11-06 08:34 | PDOC ---
Provider Note Provider Note Urology: Will f/u on patient later today IVA LR DO Nov 06, 2016 08:34
--- NOTE | 2016-11-06 08:57 | PDOC ---
PROGRESS NOTES Subjective Subjective c/c - f/u of NHL and DVT ROS - has hematuria, incontinence Objective Objective Vital Signs Date Time Temp Pulse Resp B/P Pulse Ox O2 Delivery O2 Flow Rate FiO2 11/06/16 03:08 97.9 66 20 100/58 97 Room Air 97.9 Intake and Output 11/06/16 07:00 Intake Total 868 ml Balance 868 ml Intake Oral 418 ml IV Total 450 ml # Voids 5 # Bowel Movements 1 Physical Exam Heart: Normal S1, Normal S2 General: Alert, Oriented X3 Lungs: Clear to auscultation Psych/Mental Status: Mental status NL Assessment Assessment IMPRESSION AND PLAN: 1. Acute deep venous thrombosis, left lower extremity, diagnosed on 11/02/2016. In view of ongoing hematuria, I recommended to stop Pradaxa and start him on heparin drip. I would tansition to lovenox at discharge. 2. 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 Plan cycle #2 of chemotherapy on 11/09/2016. 3. Hematuria. Appreciate urology consultation. 4. Anemia. Hemoglobin is stable 8.6. 5. Neutropenia secondary to chemotherapy. resolved. Comment Review of Relevant I have reviewed the following items juan (where applicable) has been applied. Labs Laboratory Tests Test 11/04/16 11:58 11/05/16 04:15 11/05/16 04:45 11/05/16 12:00 Heparin Anti-Xa Act, Unfractionated 0.48IU/mL (0.30-0.70) 0.27IU/mL (0.30-0.70) 0.66IU/mL (0.30-0.70) White Blood Count 14.3x10^3/uL (4.0-11.0) Red Blood Count 2.90x10^6/uL (4.30-5.70) Hemoglobin 8.8g/dL (13.0-17.5) Hematocrit 25.8% (39.0-53.0) Mean Corpuscular Volume 89fL (79-100) Mean Corpuscular Hemoglobin 30pg (25-35) Mean Corpuscular Hemoglobin Concent 34g/dL (31-37) Red Cell Distribution Width 14.6% (11.5-14.5) Platelet Count 172x10^3/uL (140-400) Sodium Level 141mmol/L (136-145) Potassium Level 3.7mmol/L (3.5-5.1) Chloride Level 106mmol/L (98-107) Carbon Dioxide Level 28mmol/L (21-32) Anion Gap 7 (6-14) Blood Urea Nitrogen 15mg/dL (8-26) Creatinine 1.4mg/dL (0.7-1.3) Estimated GFR (Cockcroft-Gault) 48.4 Glucose Level 87mg/dL (70-99) Calcium Level 8.9mg/dL (8.5-10.1) Test 11/05/16 18:45 11/06/16 02:00 Heparin Anti-Xa Act, Unfractionated 0.72IU/mL (0.30-0.70) 0.61IU/mL (0.30-0.70) White Blood Count 18.7x10^3/uL (4.0-11.0) Red Blood Count 2.82x10^6/uL (4.30-5.70) Hemoglobin 8.6g/dL (13.0-17.5) Hematocrit 26.0% (39.0-53.0) Mean Corpuscular Volume 92fL (79-100) Mean Corpuscular Hemoglobin 31pg (25-35) Mean Corpuscular Hemoglobin Concent 33g/dL (31-37) Red Cell Distribution Width 15.1% (11.5-14.5) Platelet Count 175x10^3/uL (140-400) Sodium Level 141mmol/L (136-145) Potassium Level 3.7mmol/L (3.5-5.1) Chloride Level 106mmol/L (98-107) Carbon Dioxide Level 26mmol/L (21-32) Anion Gap 9 (6-14) Blood Urea Nitrogen 14mg/dL (8-26) Creatinine 1.5mg/dL (0.7-1.3) Estimated GFR (Cockcroft-Gault) 44.7 Glucose Level 93mg/dL (70-99) Calcium Level 9.0mg/dL (8.5-10.1) Laboratory Tests Test 11/05/16 12:00 11/05/16 18:45 11/06/16 02:00 Heparin Anti-Xa Act, Unfractionated 0.66IU/mL (0.30-0.70) 0.72IU/mL (0.30-0.70) 0.61IU/mL (0.30-0.70) White Blood Count 18.7x10^3/uL (4.0-11.0) Red Blood Count 2.82x10^6/uL (4.30-5.70) Hemoglobin 8.6g/dL (13.0-17.5) Hematocrit 26.0% (39.0-53.0) Mean Corpuscular Volume 92fL (79-100) Mean Corpuscular Hemoglobin 31pg (25-35) Mean Corpuscular Hemoglobin Concent 33g/dL (31-37) Red Cell Distribution Width 15.1% (11.5-14.5) Platelet Count 175x10^3/uL (140-400) Sodium Level 141mmol/L (136-145) Potassium Level 3.7mmol/L (3.5-5.1) Chloride Level 106mmol/L (98-107) Carbon Dioxide Level 26mmol/L (21-32) Anion Gap 9 (6-14) Blood Urea Nitrogen 14mg/dL (8-26) Creatinine 1.5mg/dL (0.7-1.3) Estimated GFR (Cockcroft-Gault) 44.7 Glucose Level 93mg/dL (70-99) Calcium Level 9.0mg/dL (8.5-10.1) Medications Current Medications Heparin Sodium/ Dextrose 500 ml @ 0 mls/hr CONT PRN IV SEE I/O RECORD; Start at 18:00; Stop 11/02/16 at 19:55; Status DC Aspirin (Children'S Aspirin) 81 mg DAILY PO Last administered on 11/05/16 08: 33; Start 11/03/16 at 09:00 Sertraline HCl (Zoloft) 50 mg HS PO Last administered on 11/05/16 20:30; Start 11/02/16 at 21:00 Spironolactone (Aldactone) 25 mg DAILY PO Last administered on 11/05/16 08:34 ; Start 11/03/16 at 09:00 Tamsulosin HCl (Flomax) 0.4 mg HS PO Last administered on 11/05/16 20:30; Start 11/02/16 at 21:00 Carvedilol (Coreg) 25 mg BIDWMEALS PO Last administered on 11/05/16 17:51; Start 11/02/16 at 20:30 Vitamin D (Vitamin D3) 5,000 unit DAILY PO Last administered on 11/05/16 08:34 ; Start 11/03/16 at 09:00 Non-Formulary Medication 1 each HS PO ; Start 11/02/16 at 21:00; Status UNV Fenofibrate (Lofibra) 134 mg DAILY PO Last administered on 11/05/16 08:34; Start 11/03/16 at 09:00 Losartan Potassium (Cozaar) 100 mg QHS PO Last administered on 11/05/16 20:31 ; Start 11/02/16 at 21:00 Multivitamins/ Calcium (Thera M Plus) 1 tab DAILY PO Last administered on 08:34; Start 11/03/16 at 09:00 Potassium Chloride (Klor-Con) 10 meq BIDWMEALS PO Last administered on 17:51; Start 11/03/16 at 08:00 Calcium Carbonate/ Glycine 500 mg 500 mg DAILY PO Last administered on 08:34; Start 11/03/16 at 09:00 Heparin Sodium/ Dextrose 500 ml @ 0 mls/hr CONT PRN IV SEE I/O RECORD Last administered on 11/06/16 04:29; Start 11/02/16 at 20:00 Heparin Sodium (Porcine) 2,800 unit PRN Q6HRS PRN IV FOR UFH LEVEL LESS THAN 0.2 Last administered on 11/03/16 17:37; Start 11/02/16 at 20:00 Heparin Sodium (Porcine) 1,400 unit PRN Q6HRS PRN IV FOR UFH LEVEL 0.2 - 0.29 Last administered on 11/05/16 06:08; Start 11/02/16 at 20:00 EZETIMIBE (Zetia) 10 mg QHS PO Last administered on 11/05/16 20:30; Start at 21:00 Simvastatin (Zocor) 80 mg QHS PO Last administered on 11/05/16 20:30; Start at 21:00 Potassium Chloride (Klor-Con) 40 meq 1X ONCE PO Last administered on 08:01; Start 11/03/16 at 07:00; Stop 11/03/16 at 07:01; Status DC Tbo-Filgrastim (Granix) 480 mcg QHS SQ Last administered on 11/05/16 20:31; Start 11/03/16 at 21:00 Nitrofurantoin Macrocrystals (Macrobid) 100 mg BID PO Last administered on 11/05 20:30; Start 11/03/16 at 10:00 Info (Anti-Coagulation Monitoring By Pharmacy) 1 each PRN DAILY PRN MC SEE COMMENTS Last administered on 11/03/16 15:48; Start 11/03/16 at 16:00 Potassium Chloride (Klor-Con) 40 meq 1X ONCE PO Last administered on 08:43; Start 11/04/16 at 08:30; Stop 11/04/16 at 08:33; Status DC Active Scripts Active Reported Potassium Chloride 10 Meq Capsule.er 10 Meq PO BID Fenofibrate 50 Mg Capsule 125 Mg PO DAILY Calcium (Calcium Carbonate) 600 Mg Tablet 600 Mg PO Vytorin 10-80 Mg Tablet (Ezetimibe/Simvastatin) 1 Each Tablet 1 Each PO HS Multi-Vitamin Daily (Multivitamin) 1 Each Tablet 1 Each PO DAILY Vitamin D3 (Cholecalciferol (Vitamin D3)) 5,000 Unit Tablet 1 Tab PO DAILY Zoloft (Sertraline Hcl) 50 Mg Tablet 1 Tab PO HS Tamsulosin Hcl 0.4 Mg Cap.er.24h 1 Cap PO HS Losartan Potassium 100 Mg Tablet 100 Mg PO HS Spironolactone 25 Mg Tablet 1 Tab PO DAILY Aspirin 81 Mg Tab.chew 1 Tab PO DAILY Carvedilol 25 Mg Tablet 1 Tab PO BID Vitals/I & O Vital Sign - Last 24 Hours 11/05/16 11/05/16 11/05/16 11/05/16 11:00 15:00 17:51 19:00 Temp 97.9 98.6 98.4 97.9 98.6 98.4 Pulse 88 84 84 78 Resp 22 20 20 B/P 140/89 130/89 130/89 102/69 Pulse Ox 97 96 97 O2 Delivery Room Air Room Air Room Air 11/05/16 11/05/16 11/05/16 11/06/16 20:00 20:31 23:00 03:08 Temp 98.1 97.9 98.1 97.9 Pulse 84 91 66 Resp 20 20 B/P 109/77 134/89 100/58 Pulse Ox 96 97 O2 Delivery Room Air Room Air Room Air Intake and Output 11/05/16 11/05/16 11/06/16 15:00 23:00 07:00 Intake Total 298 ml 570 ml Balance 298 ml 570 ml JENNIFER QURESHI MD Nov 06, 2016 08:57
[2016-11-06] MEDS: FENOFIBRATE,MICRONIZED 134 MG CAPSULE PO SCH (09:19)
[2016-11-06] MEDS: CHOLECALCIFEROL (VITAMIN D3) 5,000 UNIT CAPSULE PO SCH (09:19)
[2016-11-06] MEDS: MULTIVITAMIN with MINERAL TABLET. PO SCH (09:19)
[2016-11-06] MEDS: NITROFURANTOIN MONOHYD/M-CRYST 100 MG CAPSULE. PO SCH ×2 (09:19→21:45)
[2016-11-06] MEDS: SPIRONOLACTONE 25 MG TABLET PO SCH (09:20)
[2016-11-06] MEDS: ASPIRIN 81 MG TAB.CHEW PO SCH (09:20)
[2016-11-06] MEDS: CALCIUM CARBONATE 500 MG TABLET PO SCH (09:20)
[2016-11-06] MEDS: POTASSIUM CHLORIDE 10 MEQ TABLET.ER. PO SCH ×2 (09:20→17:02)
[2016-11-06] MEDS: CARVEDILOL 12.5 MG TABLET PO SCH ×2 (09:23→17:03)
[2016-11-06 11:22] VITALS: BP 138/87
--- NOTE | 2016-11-06 11:40 | PDOC ---
SUBJECTIVE Subjective resting comfortably OBJECTIVE Objective low grade temp Vital Signs Vital Signs Date Time Temp Pulse Resp B/P Pulse Ox O2 Delivery O2 Flow Rate FiO2 11/06/16 11:22 97.5 77 18 138/87 96 Room Air 97.5 11/06/16 09:23 83 120/80 11/06/16 08:00 Room Air 11/06/16 07:00 99.3 83 20 120/80 96 Room Air 99.3 11/06/16 03:08 97.9 66 20 100/58 97 Room Air 97.9 11/05/16 23:00 98.1 91 20 134/89 96 Room Air 98.1 11/05/16 20:31 84 109/77 11/05/16 20:00 Room Air 11/05/16 19:00 98.4 78 20 102/69 97 Room Air 98.4 11/05/16 17:51 84 130/89 11/05/16 15:00 98.6 84 20 130/89 96 Room Air 98.6 I & O Intake and Output 11/06/16 07:00 Intake Total 868 ml Balance 868 ml Intake Oral 418 ml IV Total 450 ml # Voids 5 # Bowel Movements 1 PHYSICAL EXAM Physical Exam no change ASSESSMENT/PLAN Assessment/Plan 1. Left leg deep venous thrombosis. on heparin, plan for lovenox at discharge noted 2. Gross hematuria. stents in place , urology following appreciate help 3. Diffusely large B cell lymphoma. 4. Hypokalemia.resolved 5. Anemia.s/p transfusion 6. Chronic renal failure. 7. WBC up , Granix stopped Problems: COMMENT Lab Laboratory Tests Test 11/05/16 12:00 11/05/16 18:45 11/06/16 02:00 11/06/16 07:50 Heparin Anti-Xa Act, Unfractionated 0.66IU/mL (0.30-0.70) 0.72IU/mL (0.30-0.70) 0.61IU/mL (0.30-0.70) > 1.10IU/mL (0.30-0.70) White Blood Count 18.7x10^3/uL (4.0-11.0) Red Blood Count 2.82x10^6/uL (4.30-5.70) Hemoglobin 8.6g/dL (13.0-17.5) Hematocrit 26.0% (39.0-53.0) Mean Corpuscular Volume 92fL (79-100) Mean Corpuscular Hemoglobin 31pg (25-35) Mean Corpuscular Hemoglobin Concent 33g/dL (31-37) Red Cell Distribution Width 15.1% (11.5-14.5) Platelet Count 175x10^3/uL (140-400) Sodium Level 141mmol/L (136-145) Potassium Level 3.7mmol/L (3.5-5.1) Chloride Level 106mmol/L (98-107) Carbon Dioxide Level 26mmol/L (21-32) Anion Gap 9 (6-14) Blood Urea Nitrogen 14mg/dL (8-26) Creatinine 1.5mg/dL (0.7-1.3) Estimated GFR (Cockcroft-Gault) 44.7 Glucose Level 93mg/dL (70-99) Calcium Level 9.0mg/dL (8.5-10.1) JOSE LUIS HEATON MD Nov 06, 2016 11:40
[2016-11-06] MEDS: ANTI-COAG MONITOR BY PHARMACY. MC PRN (13:08)
--- NOTE | 2016-11-06 13:18 | PDOC ---
Provider Note Provider Note Urology: c/c gross hematuria (Dictated) Plan: nurses to assist patine to stand when voiding ck PVR with bladder scan increase oral fluids to help with gross hematuria will follow, Hg and Hct stable Discussed with Dr Ross Thank-you, IVA LR DO Nov 06, 2016 13:18
[2016-11-06 14:59] VITALS: BP 116/86
[2016-11-06 19:00] VITALS: BP 132/73
[2016-11-06] MEDS: SIMVASTATIN 40 MG TABLET. PO SCH (21:44)
[2016-11-06] MEDS: LOSARTAN POTASSIUM 50 MG TABLET. PO SCH (21:45)
[2016-11-06] MEDS: TAMSULOSIN 0.4 MG CAP.ER.24H. PO SCH (21:45)
[2016-11-06] MEDS: SERTRALINE 50 MG TABLET. PO SCH (21:45)
[2016-11-06] MEDS: EZETIMIBE 10 MG TABLET PO SCH (21:45)
[2016-11-06 23:00] VITALS: BP 139/84
[2016-11-07 03:20] VITALS: BP 139/86
--- NOTE | 2016-11-07 05:58 | CONS ---
DATE OF CONSULTATION: 11/06/2016 CHIEF COMPLAINT: Gross hematuria. HISTORY OF PRESENT ILLNESS: This is an 81-year-old male well known to the Urology Service. He has a history of a large retroperitoneal mass, which has been diagnosed as non-Hodgkin's lymphoma. This mass was causing bilateral hydronephrosis. I attempted to place bilateral ureteral stents in a retrograde fashion, but was not able to do so. Therefore, the patient underwent bilateral percutaneous nephrostomy tubes and then internal ureteral stents placed by Interventional Radiology. Since that time, the patient has developed deep vein thrombosis and he is on full anticoagulation. Subsequently, he has developed some gross hematuria. He also has occasional urgency incontinence. I think that the irritation from the ureteral stents in conjunction with his anticoagulated state has caused him to have this gross hematuria. His blood count has remained stable. PAST MEDICAL HISTORY: Reviewed. PHYSICAL EXAMINATION: GENERAL DESCRIPTION: A very pleasant 81-year-old male, resting comfortably in a chair. He denies any acute pain or discomfort. ABDOMEN: Soft, nontender. Negative for flank pain bilaterally, no palpable abdominal masses. No suprapubic tenderness. GENITOURINARY: External genitalia normal for age. RECTAL: Not performed at this time. MUSCULOSKELETAL: Negative for cyanosis. He does have findings consistent with deep vein thrombosis of the left lower extremity. LABORATORY DATA: The patient's most recent hemoglobin is 8.6, hematocrit 26.0 and has remained stable. His white count is 18.7 and platelet count is adequate at 175,000. Chemistries, the patient's BUN is 14 and creatinine is 1.5. Most recent urinalysis, negative for leukocytes, too numerous to count red blood cells, occasional white blood cells, and negative for bacteria. X-RAY STUDIES: KUB of the x-ray was ordered on 11/04/2016. This revealed that the bilateral ureteral stents were in satisfactory position. IMPRESSION: 1. Gross hematuria. 2. Bilateral hydronephrosis. 3. Status post bilateral ureteral stent placement. 4. Large retroperitoneal mass - non-Hodgkin's lymphoma. 5. Deep vein thrombosis. PLAN: 1. Due to the patient's deep vein thrombosis it is necessary for him to be anticoagulated and the stents are causing enough irritation in the bladder wall that he is going to have gross hematuria. I have instructed him to increase his oral fluids and this will improve upon the gross hematuria. 2. I am going to have the nursing staff get a bladder scan and make sure that he is not retaining a large volume of urine. 3. Continue the Flomax. 4. As the patient responds to the chemotherapy in the retroperitoneal mass decreases in size, we should be able to remove his stents in the future. I will continue to follow his progress with you. Thank you for the opportunity to participate in evaluation of this patient. IVA LR DO DR: VALERIA/miranda JOB#: [id number] / [id number]
[2016-11-07 07:00] VITALS: BP 132/92
[2016-11-07] MEDS: CARVEDILOL 12.5 MG TABLET PO SCH ×2 (07:51→16:51)
[2016-11-07] MEDS: POTASSIUM CHLORIDE 10 MEQ TABLET.ER. PO SCH ×2 (07:51→16:51)
[2016-11-07] MEDS: MULTIVITAMIN with MINERAL TABLET. PO SCH (08:58)
[2016-11-07] MEDS: NITROFURANTOIN MONOHYD/M-CRYST 100 MG CAPSULE. PO SCH ×2 (08:58→20:45)
[2016-11-07] MEDS: CHOLECALCIFEROL (VITAMIN D3) 5,000 UNIT CAPSULE PO SCH (08:58)
[2016-11-07] MEDS: SPIRONOLACTONE 25 MG TABLET PO SCH (08:58)
[2016-11-07] MEDS: CALCIUM CARBONATE 500 MG TABLET PO SCH (08:59)
[2016-11-07] MEDS: ASPIRIN 81 MG TAB.CHEW PO SCH (08:59)
[2016-11-07] MEDS: FENOFIBRATE,MICRONIZED 134 MG CAPSULE PO SCH (08:59)
--- NOTE | 2016-11-07 09:18 | PDOC ---
SUBJECTIVE Subjective pleasant , up in chair , no new complaints OBJECTIVE Vital Signs Vital Signs Date Time Temp Pulse Resp B/P Pulse Ox O2 Delivery O2 Flow Rate FiO2 11/07/16 07:51 88 139/86 11/07/16 03:20 97.9 84 18 139/86 93 Room Air 97.9 11/06/16 23:00 97.1 82 18 139/84 95 Room Air 97.1 11/06/16 21:45 87 132/73 11/06/16 20:30 Room Air 11/06/16 19:00 99.4 87 18 132/73 97 Room Air 99.4 11/06/16 17:03 83 116/86 11/06/16 14:59 97.9 83 18 116/86 95 Room Air 97.9 11/06/16 11:22 97.5 77 18 138/87 96 Room Air 97.5 11/06/16 09:23 83 120/80 I & O Intake and Output 11/07/16 07:00 Intake Total 218 ml Output Total 380 ml Balance -162 ml Intake Oral 218 ml Output Urine Total 380 ml # Voids 3 PHYSICAL EXAM Physical Exam lungs clear heart RRR abd soft left lower ext still with swelling ASSESSMENT/PLAN Assessment/Plan 1. Left leg deep venous thrombosis. on heparin, plan for lovenox at discharge noted 2. Gross hematuria. stents in place , urology following appreciate help 3. Diffusely large B cell lymphoma.plans for chemo on noted 4. Hypokalemia.resolved 5. Anemia.s/p transfusion continue to monitor Hb as he still with hematuria 6. Chronic renal failure. 7. WBC up , Granix stopped yesterday discussed with Dr. Ross Problems: COMMENT Lab Laboratory Tests Test 11/06/16 13:54 11/06/16 19:50 11/07/16 04:10 Heparin Anti-Xa Act, Unfractionated 0.42IU/mL (0.30-0.70) 0.37IU/mL (0.30-0.70) 0.38IU/mL (0.30-0.70) JOSE LUIS HEATON MD Nov 07, 2016 09:18
--- NOTE | 2016-11-07 09:21 | PDOC ---
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 Acute deep venous thrombosis, left lower extremity, diagnosed on 11/02/2016. In view of ongoing hematuria, I recommended to stop Pradaxa and start him on heparin drip. I would tansition to lovenox at discharge. 2. 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 Plan cycle #2 of chemotherapy on 11/09/2016. [facility] faxed to pharmacy. 3. Hematuria. Appreciate urology consultation. 4. Anemia. Hemoglobin is stable 8.6. 5. Neutropenia secondary to chemotherapy. resolved. d/c granix I d/w Dr De Los Santos. Comment Review of Relevant I have reviewed the following items juan (where applicable) has been applied. Labs Laboratory Tests Test 11/05/16 12:00 11/05/16 18:45 11/06/16 02:00 11/06/16 07:50 Heparin Anti-Xa Act, Unfractionated 0.66IU/mL (0.30-0.70) 0.72IU/mL (0.30-0.70) 0.61IU/mL (0.30-0.70) > 1.10IU/mL (0.30-0.70) White Blood Count 18.7x10^3/uL (4.0-11.0) Red Blood Count 2.82x10^6/uL (4.30-5.70) Hemoglobin 8.6g/dL (13.0-17.5) Hematocrit 26.0% (39.0-53.0) Mean Corpuscular Volume 92fL (79-100) Mean Corpuscular Hemoglobin 31pg (25-35) Mean Corpuscular Hemoglobin Concent 33g/dL (31-37) Red Cell Distribution Width 15.1% (11.5-14.5) Platelet Count 175x10^3/uL (140-400) Sodium Level 141mmol/L (136-145) Potassium Level 3.7mmol/L (3.5-5.1) Chloride Level 106mmol/L (98-107) Carbon Dioxide Level 26mmol/L (21-32) Anion Gap 9 (6-14) Blood Urea Nitrogen 14mg/dL (8-26) Creatinine 1.5mg/dL (0.7-1.3) Estimated GFR (Cockcroft-Gault) 44.7 Glucose Level 93mg/dL (70-99) Calcium Level 9.0mg/dL (8.5-10.1) Test 11/06/16 13:54 11/06/16 19:50 11/07/16 04:10 Heparin Anti-Xa Act, Unfractionated 0.42IU/mL (0.30-0.70) 0.37IU/mL (0.30-0.70) 0.38IU/mL (0.30-0.70) Laboratory Tests Test 11/06/16 13:54 11/06/16 19:50 11/07/16 04:10 Heparin Anti-Xa Act, Unfractionated 0.42IU/mL (0.30-0.70) 0.37IU/mL (0.30-0.70) 0.38IU/mL (0.30-0.70) Medications Current Medications Heparin Sodium/ Dextrose 500 ml @ 0 mls/hr CONT PRN IV SEE I/O RECORD; Start at 18:00; Stop 11/02/16 at 19:55; Status DC Aspirin (Children'S Aspirin) 81 mg DAILY PO Last administered on 11/07/16 08: 59; Start 11/03/16 at 09:00 Sertraline HCl (Zoloft) 50 mg HS PO Last administered on 11/06/16 21:45; Start 11/02/16 at 21:00 Spironolactone (Aldactone) 25 mg DAILY PO Last administered on 11/07/16 08:58 ; Start 11/03/16 at 09:00 Tamsulosin HCl (Flomax) 0.4 mg HS PO Last administered on 11/06/16 21:45; Start 11/02/16 at 21:00 Carvedilol (Coreg) 25 mg BIDWMEALS PO Last administered on 11/07/16 07:51; Start 11/02/16 at 20:30 Vitamin D (Vitamin D3) 5,000 unit DAILY PO Last administered on 11/07/16 08:58 ; Start 11/03/16 at 09:00 Non-Formulary Medication 1 each HS PO ; Start 11/02/16 at 21:00; Status UNV Fenofibrate (Lofibra) 134 mg DAILY PO Last administered on 11/07/16 08:59; Start 11/03/16 at 09:00 Losartan Potassium (Cozaar) 100 mg QHS PO Last administered on 11/06/16 21:45 ; Start 11/02/16 at 21:00 Multivitamins/ Calcium (Thera M Plus) 1 tab DAILY PO Last administered on 08:58; Start 11/03/16 at 09:00 Potassium Chloride (Klor-Con) 10 meq BIDWMEALS PO Last administered on 07:51; Start 11/03/16 at 08:00 Calcium Carbonate/ Glycine 500 mg 500 mg DAILY PO Last administered on 08:59; Start 11/03/16 at 09:00 Heparin Sodium/ Dextrose 500 ml @ 0 mls/hr CONT PRN IV SEE I/O RECORD Last administered on 11/06/16 21:51; Start 11/02/16 at 20:00 Heparin Sodium (Porcine) 2,800 unit PRN Q6HRS PRN IV FOR UFH LEVEL LESS THAN 0.2 Last administered on 11/03/16 17:37; Start 11/02/16 at 20:00 Heparin Sodium (Porcine) 1,400 unit PRN Q6HRS PRN IV FOR UFH LEVEL 0.2 - 0.29 Last administered on 11/05/16 06:08; Start 11/02/16 at 20:00 EZETIMIBE (Zetia) 10 mg QHS PO Last administered on 11/06/16 21:45; Start at 21:00 Simvastatin (Zocor) 80 mg QHS PO Last administered on 11/06/16 21:44; Start at 21:00 Potassium Chloride (Klor-Con) 40 meq 1X ONCE PO Last administered on 08:01; Start 11/03/16 at 07:00; Stop 11/03/16 at 07:01; Status DC Tbo-Filgrastim (Granix) 480 mcg QHS SQ Last administered on 11/05/16 20:31; Start 11/03/16 at 21:00; Stop 11/06/16 at 16:55; Status DC Nitrofurantoin Macrocrystals (Macrobid) 100 mg BID PO Last administered on 11/07 08:58; Start 11/03/16 at 10:00 Info (Anti-Coagulation Monitoring By Pharmacy) 1 each PRN DAILY PRN MC SEE COMMENTS Last administered on 11/06/16 13:08; Start 11/03/16 at 16:00 Potassium Chloride (Klor-Con) 40 meq 1X ONCE PO Last administered on 08:43; Start 11/04/16 at 08:30; Stop 11/04/16 at 08:33; Status DC Active Scripts Active Reported Potassium Chloride 10 Meq Capsule.er 10 Meq PO BID Fenofibrate 50 Mg Capsule 125 Mg PO DAILY Calcium (Calcium Carbonate) 600 Mg Tablet 600 Mg PO Vytorin 10-80 Mg Tablet (Ezetimibe/Simvastatin) 1 Each Tablet 1 Each PO HS Multi-Vitamin Daily (Multivitamin) 1 Each Tablet 1 Each PO DAILY Vitamin D3 (Cholecalciferol (Vitamin D3)) 5,000 Unit Tablet 1 Tab PO DAILY Zoloft (Sertraline Hcl) 50 Mg Tablet 1 Tab PO HS Tamsulosin Hcl 0.4 Mg Cap.er.24h 1 Cap PO HS Losartan Potassium 100 Mg Tablet 100 Mg PO HS Spironolactone 25 Mg Tablet 1 Tab PO DAILY Aspirin 81 Mg Tab.chew 1 Tab PO DAILY Carvedilol 25 Mg Tablet 1 Tab PO BID Vitals/I & O Vital Sign - Last 24 Hours 11/06/16 11/06/16 11/06/16 11/06/16 09:23 11:22 14:59 17:03 Temp 97.5 97.9 97.5 97.9 Pulse 83 77 83 83 Resp 18 18 B/P 120/80 138/87 116/86 116/86 Pulse Ox 96 95 O2 Delivery Room Air Room Air 11/06/16 11/06/16 11/06/16 11/06/16 19:00 20:30 21:45 23:00 Temp 99.4 97.1 99.4 97.1 Pulse 87 87 82 Resp 18 18 B/P 132/73 132/73 139/84 Pulse Ox 97 95 O2 Delivery Room Air Room Air Room Air 11/07/16 11/07/16 11/07/16 03:20 07:51 08:00 Temp 97.9 97.9 Pulse 84 88 Resp 18 B/P 139/86 139/86 Pulse Ox 93 O2 Delivery Room Air Room Air Intake and Output 11/06/16 11/06/16 11/07/16 15:00 23:00 07:00 Intake Total 118 ml 100 ml Output Total 250 ml 30 ml 100 ml Balance -132 ml -30 ml 0 ml JENNIFER QURESHI MD Nov 07, 2016 09:21
[2016-11-07 11:00] VITALS: BP 107/72
[2016-11-07] MEDS: ANTI-COAG MONITOR BY PHARMACY. MC PRN (13:38)
[2016-11-07] MEDS: HEPARIN 25,000UTS/500ML PREMIX 500 ML IV PRN (14:11)
[2016-11-07 15:00] VITALS: BP 111/72
[2016-11-07 19:00] VITALS: BP 125/85
[2016-11-07] MEDS: EZETIMIBE 10 MG TABLET PO SCH (20:45)
[2016-11-07] MEDS: TAMSULOSIN 0.4 MG CAP.ER.24H. PO SCH (20:45)
[2016-11-07] MEDS: SERTRALINE 50 MG TABLET. PO SCH (20:45)
[2016-11-07] MEDS: SIMVASTATIN 40 MG TABLET. PO SCH (20:45)
[2016-11-07] MEDS: LOSARTAN POTASSIUM 50 MG TABLET. PO SCH (20:45)
[2016-11-07 23:00] VITALS: BP 138/90
[2016-11-08 02:54] VITALS: BP 124/83
[2016-11-08 07:15] VITALS: BP 139/93
[2016-11-08] MEDS: CARVEDILOL 12.5 MG TABLET PO SCH ×2 (08:28→17:35)
[2016-11-08] MEDS: FENOFIBRATE,MICRONIZED 134 MG CAPSULE PO SCH (08:28)
[2016-11-08] MEDS: CHOLECALCIFEROL (VITAMIN D3) 5,000 UNIT CAPSULE PO SCH (08:28)
[2016-11-08] MEDS: ASPIRIN 81 MG TAB.CHEW PO SCH (08:28)
[2016-11-08] MEDS: POTASSIUM CHLORIDE 10 MEQ TABLET.ER. PO SCH ×2 (08:28→17:35)
[2016-11-08] MEDS: CALCIUM CARBONATE 500 MG TABLET PO SCH (08:29)
[2016-11-08] MEDS: NITROFURANTOIN MONOHYD/M-CRYST 100 MG CAPSULE. PO SCH ×2 (08:29→20:46)
[2016-11-08] MEDS: MULTIVITAMIN with MINERAL TABLET. PO SCH (08:29)
[2016-11-08] MEDS: SPIRONOLACTONE 25 MG TABLET PO SCH (08:33)
--- NOTE | 2016-11-08 10:07 | PDOC ---
SUBJECTIVE Subjective feels better , less swelling LLE OBJECTIVE Objective VSS Vital Signs Vital Signs Date Time Temp Pulse Resp B/P Pulse Ox O2 Delivery O2 Flow Rate FiO2 11/08/16 08:28 91 139/93 11/08/16 07:15 98.0 91 20 139/93 96 Room Air 98.0 11/08/16 02:54 97.7 87 18 124/83 96 Room Air 97.7 11/07/16 23:00 97.9 94 18 138/90 96 Room Air 97.9 11/07/16 20:45 93 125/85 11/07/16 20:00 Room Air 11/07/16 19:00 96.4 93 18 125/85 97 Room Air 96.4 11/07/16 16:51 95 111/72 11/07/16 15:00 98.1 95 20 111/72 97 Room Air 98.1 11/07/16 11:00 97.8 18 18 107/72 95 Room Air 97.8 I & O Intake and Output 11/08/16 07:00 Intake Total 855 ml Output Total 780 ml Balance 75 ml Intake Oral 380 ml IV Total 475 ml Output Urine Total 780 ml # Voids 6 # Bowel Movements 1 PHYSICAL EXAM Physical Exam less swelling LLE otherwise no change ASSESSMENT/PLAN Assessment/Plan 1. Left leg deep venous thrombosis. on heparin, plan for lovenox at discharge noted 2. Gross hematuria. stents in place , urology following appreciate help 3. Diffusely large B cell lymphoma.plans for chemo on noted 4. Hypokalemia.resolved 5. Anemia.s/p transfusion continue to monitor Hb as he still with hematuria 6. acute on Chronic renal failure.improved Chemo in AM, then discharge , Dr. Dave will resume care in AM Problems: COMMENT Lab Laboratory Tests Test 11/08/16 05:11 Heparin Anti-Xa Act, Unfractionated 0.59IU/mL (0.30-0.70) JOSE LUIS HEATON MD Nov 08, 2016 10:07
[2016-11-08 11:11] VITALS: BP 150/78
[2016-11-08] MEDS: ANTI-COAG MONITOR BY PHARMACY. MC PRN (13:07)
[2016-11-08 15:15] VITALS: BP 120/76
[2016-11-08] MEDS: HEPARIN 25,000UTS/500ML PREMIX 500 ML IV PRN (16:27)
[2016-11-08 19:00] VITALS: BP 143/74
[2016-11-08] MEDS: SIMVASTATIN 40 MG TABLET. PO SCH (20:46)
[2016-11-08] MEDS: SERTRALINE 50 MG TABLET. PO SCH (20:46)
[2016-11-08] MEDS: TAMSULOSIN 0.4 MG CAP.ER.24H. PO SCH (20:46)
[2016-11-08] MEDS: EZETIMIBE 10 MG TABLET PO SCH (20:46)
[2016-11-08] MEDS: LOSARTAN POTASSIUM 50 MG TABLET. PO SCH (20:47)
[2016-11-08 23:00] VITALS: BP 148/91
[2016-11-09] VITALS (8 sets, daily range): BP systolic 104–142; BP diastolic 67–91
[2016-11-09 03:36] LABS: HEMATOCRIT 28.4 % (39.0-53.0); HEMOGLOBIN 9.5 g/dL (13.0-17.5); RED BLOOD COUNT 3.06 x10^6/uL (4.30-5.70); RED CELL DISTRIBUTION WIDTH 16.2 % (11.5-14.5); WHITE BLOOD COUNT 6.8 x10^3/uL (4.0-11.0)
[2016-11-09 03:50] LABS: CALCIUM 9.5 mg/dL (8.5-10.1); CREATININE 1.7 mg/dL (0.7-1.3); GFR 38.7; POTASSIUM 3.9 mmol/L (3.5-5.1)
--- NOTE | 2016-11-09 08:29 | PDOC ---
Provider Note Provider Note no new sxs , still on heparin re dvt- dc plans per dr kelly re med/lovenox ? after chemo- labs stable,some ckd re recent hydronephrosis NESTOR ROCKWELL MD Nov 09, 2016 08:29
[2016-11-09] MEDS ORDERED: DIPHENHYDRAMINE HCL 25 MG CAPSULE PO ONE (08:30)
[2016-11-09] MEDS ORDERED: ACETAMINOPHEN 325 MG TABLET. PO ONE (08:30)
[2016-11-09] MEDS: CALCIUM CARBONATE 500 MG TABLET PO SCH (08:33)
[2016-11-09] MEDS: ASPIRIN 81 MG TAB.CHEW PO SCH (08:33)
[2016-11-09] MEDS: CHOLECALCIFEROL (VITAMIN D3) 5,000 UNIT CAPSULE PO SCH (08:34)
[2016-11-09] MEDS: POTASSIUM CHLORIDE 10 MEQ TABLET.ER. PO SCH ×2 (08:34→17:21)
[2016-11-09] MEDS: SPIRONOLACTONE 25 MG TABLET PO SCH (08:34)
[2016-11-09] MEDS: NITROFURANTOIN MONOHYD/M-CRYST 100 MG CAPSULE. PO SCH ×2 (08:34→21:25)
[2016-11-09] MEDS: MULTIVITAMIN with MINERAL TABLET. PO SCH (08:34)
[2016-11-09] MEDS: PREDNISONE 20 MG TABLET PO SCH (08:35)
[2016-11-09] MEDS: CARVEDILOL 12.5 MG TABLET PO SCH ×2 (08:36→17:23)
[2016-11-09] MEDS: FENOFIBRATE,MICRONIZED 134 MG CAPSULE PO SCH (08:41)
[2016-11-09] MEDS: HEPARIN 25,000UTS/500ML PREMIX 500 ML IV PRN (08:49)
[2016-11-09] MEDS ORDERED: RITUXIMAB IV ONE (09:00)
[2016-11-09] MEDS ORDERED: ONDANSETRON PF 4 MG/2 ML VIAL. IV PRN (09:00)
[2016-11-09] MEDS ORDERED: NORMAL SALINE IV ONE ×4 (09:00→13:30)
[2016-11-09] MEDS ORDERED: DEXAMETHASONE 4 MG TABLET PO ONE (09:30)
[2016-11-09] MEDS ORDERED: HEPARIN PF 500 UNIT/5 ML DISP.SYRIN. IV ONE (09:36)
[2016-11-09] MEDS: OXYBUTYNIN CHLORIDE 5 MG TABLET PO SCH ×2 (09:45→21:25)
--- NOTE | 2016-11-09 10:37 | PDOC ---
PROGRESS NOTES Subjective Subjective c/c - f/u of Diffuse large B cell non-Hodgkin's lymphoma Objective Objective Vital Signs Date Time Temp Pulse Resp B/P Pulse Ox O2 Delivery O2 Flow Rate FiO2 11/09/16 10:07 97.3 85 20 120/78 96 Room Air 97.3 Intake and Output 11/09/16 07:00 Intake Total 1020 ml Output Total 850 ml Balance 170 ml Intake Oral 1020 ml Output Urine Total 850 ml # Voids 2 Physical Exam Heart: Normal S1, Normal S2 General: Alert, Oriented X3 Lungs: Clear to auscultation Psych/Mental Status: Mental status NL Assessment Assessment IMPRESSION AND PLAN: 1. Acute deep venous thrombosis, left lower extremity, diagnosed on 11/02/2016. In view of ongoing hematuria, I recommended to stop Pradaxa and started him on heparin drip. I would transition to lovenox at discharge. Plan to d/c heparin and change to lovenox 11/10/16, 80 mg s/q q 12 hrs.. 2. 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 Plan cycle #2 of chemotherapy on 11/09/2016. I d/w RN. Ok to d/c to rehab tomorrow if no complications. 3. Hematuria. Appreciate urology consultation. 4. Anemia. Hemoglobin is stable 9.5. 5. Neutropenia secondary to chemotherapy. resolved. I d/w Dr De Los Santos. Comment Review of Relevant I have reviewed the following items juan (where applicable) has been applied. Labs Laboratory Tests Test 11/08/16 05:11 11/08/16 22:40 11/09/16 03:05 Heparin Anti-Xa Act, Unfractionated 0.59IU/mL (0.30-0.70) 0.36IU/mL (0.30-0.70) 0.44IU/mL (0.30-0.70) White Blood Count 6.8x10^3/uL (4.0-11.0) Red Blood Count 3.06x10^6/uL (4.30-5.70) Hemoglobin 9.5g/dL (13.0-17.5) Hematocrit 28.4% (39.0-53.0) Mean Corpuscular Volume 93fL (79-100) Mean Corpuscular Hemoglobin 31pg (25-35) Mean Corpuscular Hemoglobin Concent 34g/dL (31-37) Red Cell Distribution Width 16.2% (11.5-14.5) Platelet Count 189x10^3/uL (140-400) Sodium Level 141mmol/L (136-145) Potassium Level 3.9mmol/L (3.5-5.1) Chloride Level 107mmol/L (98-107) Carbon Dioxide Level 24mmol/L (21-32) Anion Gap 10 (6-14) Blood Urea Nitrogen 18mg/dL (8-26) Creatinine 1.7mg/dL (0.7-1.3) Estimated GFR (Cockcroft-Gault) 38.7 Glucose Level 99mg/dL (70-99) Calcium Level 9.5mg/dL (8.5-10.1) Laboratory Tests Test 11/08/16 22:40 11/09/16 03:05 Heparin Anti-Xa Act, Unfractionated 0.36IU/mL (0.30-0.70) 0.44IU/mL (0.30-0.70) White Blood Count 6.8x10^3/uL (4.0-11.0) Red Blood Count 3.06x10^6/uL (4.30-5.70) Hemoglobin 9.5g/dL (13.0-17.5) Hematocrit 28.4% (39.0-53.0) Mean Corpuscular Volume 93fL (79-100) Mean Corpuscular Hemoglobin 31pg (25-35) Mean Corpuscular Hemoglobin Concent 34g/dL (31-37) Red Cell Distribution Width 16.2% (11.5-14.5) Platelet Count 189x10^3/uL (140-400) Sodium Level 141mmol/L (136-145) Potassium Level 3.9mmol/L (3.5-5.1) Chloride Level 107mmol/L (98-107) Carbon Dioxide Level 24mmol/L (21-32) Anion Gap 10 (6-14) Blood Urea Nitrogen 18mg/dL (8-26) Creatinine 1.7mg/dL (0.7-1.3) Estimated GFR (Cockcroft-Gault) 38.7 Glucose Level 99mg/dL (70-99) Calcium Level 9.5mg/dL (8.5-10.1) Medications Current Medications Heparin Sodium/ Dextrose 500 ml @ 0 mls/hr CONT PRN IV SEE I/O RECORD; Start at 18:00; Stop 11/02/16 at 19:55; Status DC Aspirin (Children'S Aspirin) 81 mg DAILY PO Last administered on 11/09/16 08:33 ; Start 11/03/16 at 09:00 Sertraline HCl (Zoloft) 50 mg HS PO Last administered on 11/08/16 20:46; Start 11/02/16 at 21:00 Spironolactone (Aldactone) 25 mg DAILY PO Last administered on 11/09/16 08:34; Start 11/03/16 at 09:00 Tamsulosin HCl (Flomax) 0.4 mg HS PO Last administered on 11/08/16 20:46; Start 11/02/16 at 21:00 Carvedilol (Coreg) 25 mg BIDWMEALS PO Last administered on 11/09/16 08:36; Start 11/02/16 at 20:30 Vitamin D (Vitamin D3) 5,000 unit DAILY PO Last administered on 11/09/16 08:34 ; Start 11/03/16 at 09:00 Non-Formulary Medication 1 each HS PO ; Start 11/02/16 at 21:00; Status UNV Fenofibrate (Lofibra) 134 mg DAILY PO Last administered on 11/09/16 08:41; Start 11/03/16 at 09:00 Losartan Potassium (Cozaar) 100 mg QHS PO Last administered on 11/08/16 20:47; Start 11/02/16 at 21:00 Multivitamins/ Calcium (Thera M Plus) 1 tab DAILY PO Last administered on 08:34; Start 11/03/16 at 09:00 Potassium Chloride (Klor-Con) 10 meq BIDWMEALS PO Last administered on 08:34; Start 11/03/16 at 08:00 Calcium Carbonate/ Glycine 500 mg 500 mg DAILY PO Last administered on 08:33; Start 11/03/16 at 09:00 Heparin Sodium/ Dextrose 500 ml @ 0 mls/hr CONT PRN IV SEE I/O RECORD Last administered on 11/09/16 08:49; Start 11/02/16 at 20:00 Heparin Sodium (Porcine) 2,800 unit PRN Q6HRS PRN IV FOR UFH LEVEL LESS THAN 0.2 Last administered on 11/03/16 17:37; Start 11/02/16 at 20:00 Heparin Sodium (Porcine) 1,400 unit PRN Q6HRS PRN IV FOR UFH LEVEL 0.2 - 0.29 Last administered on 11/05/16 06:08; Start 11/02/16 at 20:00 EZETIMIBE (Zetia) 10 mg QHS PO Last administered on 11/08/16 20:46; Start 11/02 at 21:00 Simvastatin (Zocor) 80 mg QHS PO Last administered on 11/08/16 20:46; Start at 21:00 Potassium Chloride (Klor-Con) 40 meq 1X ONCE PO Last administered on 08:01; Start 11/03/16 at 07:00; Stop 11/03/16 at 07:01; Status DC Tbo-Filgrastim (Granix) 480 mcg QHS SQ Last administered on 11/05/16 20:31; Start 11/03/16 at 21:00; Stop 11/06/16 at 16:55; Status DC Nitrofurantoin Macrocrystals (Macrobid) 100 mg BID PO Last administered on 08:34; Start 11/03/16 at 10:00 Info (Anti-Coagulation Monitoring By Pharmacy) 1 each PRN DAILY PRN MC SEE COMMENTS Last administered on 11/08/16 13:07; Start 11/03/16 at 16:00 Potassium Chloride 40 meq 40 meq 1X ONCE PO Last administered on 11/04/16 08: 43; Start 11/04/16 at 08:30; Stop 11/04/16 at 08:33; Status DC Rituximab 780 mg/ Sodium Chloride 780 ml @ 195 mls/hr 1X ONCE IV Last administered on 11/09/16 10:04; Start 11/09/16 at 09:00; Stop 11/09/16 at 12:59 Cyclophosphamide 1500 mg/Sodium Chloride 250 ml @ 500 mls/hr 1X ONCE IV ; Start 11/09/16 at 13:00; Stop 11/09/16 at 13:29 Doxorubicin HCl 100 mg/ Miscellaneous 50 ml @ 600 mls/hr 1X ONCE IV ; Start at 13:30; Stop 11/09/16 at 13:34 Vincristine Sulfate 2 mg/ Sodium Chloride 50 ml @ 275 mls/hr 1X ONCE IV ; Start 11/09/16 at 13:30; Stop 11/09/16 at 13:40 Ondansetron HCl/ Sodium Chloride (Zofran/Iv Sodium Chloride 0.9% 50ml) 56 ml @ 112 mls/hr 1X ONCE IV Last administered on 11/09/16 09:35; Start 11/09/16 at 13 :00; Stop 11/09/16 at 13:29 Ondansetron HCl (Zofran) 4 mg PRN Q4HRS PRN IV NAUSEA/VOMITING; Start 11/09/16 at 09:00 Prednisone (Prednisone) 100 mg DAILY PO Last administered on 11/09/16 08:35; Start 11/09/16 at 09:00; Stop 11/13/16 at 09:01 Dexamethasone (Decadron) 20 mg 1X ONCE PO Last administered on 11/09/16 09:45 ; Start 11/09/16 at 09:30; Stop 11/09/16 at 09:31; Status DC Acetaminophen (Tylenol) 650 mg 1X ONCE PO Last administered on 11/09/16 08:41 ; Start 11/09/16 at 08:30; Stop 11/09/16 at 08:31; Status DC Diphenhydramine HCl (Benadryl) 50 mg 1X ONCE PO Last administered on 11/09/16 08:34; Start 11/09/16 at 08:30; Stop 11/09/16 at 08:31; Status DC Tbo-Filgrastim (Granix) 480 mcg QHS SQ ; Start 11/10/16 at 21:00; Stop 11/19/16 at 23:59 Oxybutynin Chloride (Ditropan) 5 mg BID PO Last administered on 11/09/16 09:45 ; Start 11/09/16 at 09:00 Heparin Sodium (Porcine) (Hep Lock Adult) 500 unit STK-MED ONCE IV ; Start at 09:36; Stop 11/09/16 at 09:37; Status DC Active Scripts Active Reported Potassium Chloride 10 Meq Capsule.er 10 Meq PO BID Fenofibrate 50 Mg Capsule 125 Mg PO DAILY Calcium (Calcium Carbonate) 600 Mg Tablet 600 Mg PO Vytorin 10-80 Mg Tablet (Ezetimibe/Simvastatin) 1 Each Tablet 1 Each PO HS Multi-Vitamin Daily (Multivitamin) 1 Each Tablet 1 Each PO DAILY Vitamin D3 (Cholecalciferol (Vitamin D3)) 5,000 Unit Tablet 1 Tab PO DAILY Zoloft (Sertraline Hcl) 50 Mg Tablet 1 Tab PO HS Tamsulosin Hcl 0.4 Mg Cap.er.24h 1 Cap PO HS Losartan Potassium 100 Mg Tablet 100 Mg PO HS Spironolactone 25 Mg Tablet 1 Tab PO DAILY Aspirin 81 Mg Tab.chew 1 Tab PO DAILY Carvedilol 25 Mg Tablet 1 Tab PO BID Vitals/I & O Vital Sign - Last 24 Hours 11/08/16 11/08/16 11/08/16 11/08/16 11:11 15:15 17:35 19:00 Temp 97.6 97.9 98.1 97.6 97.9 98.1 Pulse 84 96 88 91 Resp 18 20 18 B/P 150/78 120/76 123/80 143/74 Pulse Ox 97 96 97 O2 Delivery Room Air Room Air Room Air 11/08/16 11/08/16 11/08/16 11/09/16 20:00 20:47 23:00 03:00 Temp 97.9 97.7 97.9 97.7 Pulse 88 82 88 Resp 20 20 B/P 104/70 148/91 142/88 Pulse Ox 98 98 O2 Delivery Room Air Room Air Room Air 11/09/16 11/09/16 11/09/16 11/09/16 07:45 08:00 08:36 10:07 Temp 97.9 97.3 97.9 97.3 Pulse 88 88 85 Resp 18 20 B/P 135/88 135/88 120/78 Pulse Ox 96 96 O2 Delivery Room Air Room Air Room Air Intake and Output 11/08/16 11/08/16 11/09/16 15:00 23:00 07:00 Intake Total 480 ml 540 ml Output Total 550 ml 300 ml Balance 480 ml -10 ml -300 ml Nutrition Consultation Dietary Evaluation: Recommendations by RD: Protein supplementation Expected Outcomes/Goals: to meet > 75% est nutr needs Interpretation of weight loss: >5% in 1 month Malnutrition Findings: Muscle Mass (Severe): Mod to Severe Depletion Food and Nutrition Intake (Mod: <75% est energy req 7days Weight Status: Overweight JENNIFER QURESHI MD Nov 09, 2016 10:37
[2016-11-09] MEDS ORDERED: ONDANSETRON HCL IV ONE (13:00)
[2016-11-09] MEDS ORDERED: CYCLOPHOSPHAMIDE IV ONE (13:00)
[2016-11-09] MEDS ORDERED: DOXORUBICIN IV ONE (13:30)
[2016-11-09] MEDS ORDERED: TOTAL VOLUME IV ONE (13:30)
[2016-11-09] MEDS ORDERED: VINCRISTINE IV ONE (13:30)
[2016-11-09] MEDS: EZETIMIBE 10 MG TABLET PO SCH (21:23)
[2016-11-09] MEDS: TAMSULOSIN 0.4 MG CAP.ER.24H. PO SCH (21:23)
[2016-11-09] MEDS: SERTRALINE 50 MG TABLET. PO SCH (21:23)
[2016-11-09] MEDS: SIMVASTATIN 40 MG TABLET. PO SCH (21:25)
[2016-11-09] MEDS: LOSARTAN POTASSIUM 50 MG TABLET. PO SCH (21:25)
[2016-11-10] MEDS: HEPARIN 25,000UTS/500ML PREMIX 500 ML IV PRN (00:17)
[2016-11-10 03:00] VITALS: BP 107/76
[2016-11-10] MEDS ORDERED: HEPARIN 25,000UTS/500ML PREMIX 500 ML IV PRN (07:00)
[2016-11-10 07:35] VITALS: BP 129/86
--- NOTE | 2016-11-10 07:51 | DISCH ---
DISCHARGE FINAL DIAGNOSIS Problems Medical Problems: (1) B-cell lymphoma Status: Acute CONDITION ON DISCHARGE: Stable SNF STAY <30 DAYS: Yes POST DISCHARGE ORDERS ACTIVITY ORDERS: Activity as tolerated DIET AFTER DISCHARGE: Regular FOLLOW-UP PHYSICIAN FOLLOW-UP: per NESTOR Shah MD Nov 10, 2016 07:50
--- NOTE | 2016-11-10 07:58 | PDOC ---
Provider Note Provider Note [id number] NESTOR ROCKWELL MD Nov 10, 2016 07:58
--- NOTE | 2016-11-10 08:56 | PDOC ---
PROGRESS NOTES Subjective Subjective c/c - f/u of Diffuse large B cell non-Hodgkin's lymphoma Objective Objective Vital Signs Date Time Temp Pulse Resp B/P Pulse Ox O2 Delivery O2 Flow Rate FiO2 11/10/16 08:00 Room Air 11/10/16 07:35 97.9 75 18 129/86 96 97.9 Intake and Output 11/10/16 07:00 Intake Total 580 ml Output Total 525 ml Balance 55 ml Intake Oral 580 ml Output Urine Total 525 ml # Voids 3 Physical Exam Heart: Normal S1, Normal S2 General: Alert, Oriented X3 Lungs: Clear to auscultation Neuro: Normal speech Psych/Mental Status: Mental status NL Assessment Assessment Problems Medical Problems: (1) B-cell lymphoma Status: Acute IMPRESSION AND PLAN: 1. Acute deep venous thrombosis, left lower extremity, diagnosed on 11/02/2016. In view of ongoing hematuria, I recommended to stop Pradaxa and started him on heparin drip. Plan to d/c heparin and change to lovenox 11/10/16, 80 mg s/q q 12 hrs.. 2. 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 s/p cycle #2 of chemotherapy on 11/09/2016. Tolerated well. I d/w RN. Ok to d/c to rehab. f/u with me in [address] in 2 weeks to eval for response. 3. Hematuria. Appreciate urology consultation. Plan stent removal if CT in 2 weeks reveals good response. 4. Anemia. Hemoglobin is stable 9.5. 5. Neutropenia secondary to chemotherapy. resolved. Comment Review of Relevant I have reviewed the following items juan (where applicable) has been applied. Labs Laboratory Tests Test 11/08/16 22:40 11/09/16 03:05 11/10/16 05:30 Heparin Anti-Xa Act, Unfractionated 0.36IU/mL (0.30-0.70) 0.44IU/mL (0.30-0.70) 0.63IU/mL (0.30-0.70) White Blood Count 6.8x10^3/uL (4.0-11.0) Red Blood Count 3.06x10^6/uL (4.30-5.70) Hemoglobin 9.5g/dL (13.0-17.5) Hematocrit 28.4% (39.0-53.0) Mean Corpuscular Volume 93fL (79-100) Mean Corpuscular Hemoglobin 31pg (25-35) Mean Corpuscular Hemoglobin Concent 34g/dL (31-37) Red Cell Distribution Width 16.2% (11.5-14.5) Platelet Count 189x10^3/uL (140-400) Sodium Level 141mmol/L (136-145) Potassium Level 3.9mmol/L (3.5-5.1) Chloride Level 107mmol/L (98-107) Carbon Dioxide Level 24mmol/L (21-32) Anion Gap 10 (6-14) Blood Urea Nitrogen 18mg/dL (8-26) Creatinine 1.7mg/dL (0.7-1.3) Estimated GFR (Cockcroft-Gault) 38.7 Glucose Level 99mg/dL (70-99) Calcium Level 9.5mg/dL (8.5-10.1) Laboratory Tests Test 11/10/16 05:30 Heparin Anti-Xa Act, Unfractionated 0.63IU/mL (0.30-0.70) Medications Current Medications Heparin Sodium/ Dextrose 500 ml @ 0 mls/hr CONT PRN IV SEE I/O RECORD; Start at 18:00; Stop 11/02/16 at 19:55; Status DC Aspirin (Children'S Aspirin) 81 mg DAILY PO Last administered on 11/09/16 08:33 ; Start 11/03/16 at 09:00; Stop 11/10/16 at 07:50; Status DC Sertraline HCl (Zoloft) 50 mg HS PO Last administered on 11/09/16 21:23; Start 11/02/16 at 21:00 Spironolactone (Aldactone) 25 mg DAILY PO Last administered on 11/09/16 08:34; Start 11/03/16 at 09:00 Tamsulosin HCl (Flomax) 0.4 mg HS PO Last administered on 11/09/16 21:23; Start 11/02/16 at 21:00 Carvedilol (Coreg) 25 mg BIDWMEALS PO Last administered on 11/09/16 17:23; Start 11/02/16 at 20:30 Vitamin D (Vitamin D3) 5,000 unit DAILY PO Last administered on 11/09/16 08:34 ; Start 11/03/16 at 09:00 Non-Formulary Medication 1 each HS PO ; Start 11/02/16 at 21:00; Status UNV Fenofibrate (Lofibra) 134 mg DAILY PO Last administered on 11/09/16 08:41; Start 11/03/16 at 09:00 Losartan Potassium (Cozaar) 100 mg QHS PO Last administered on 11/09/16 21:25; Start 11/02/16 at 21:00 Multivitamins/ Calcium (Thera M Plus) 1 tab DAILY PO Last administered on 08:34; Start 11/03/16 at 09:00 Potassium Chloride (Klor-Con) 10 meq BIDWMEALS PO Last administered on 17:21; Start 11/03/16 at 08:00; Stop 11/10/16 at 07:53; Status DC Calcium Carbonate/ Glycine 500 mg 500 mg DAILY PO Last administered on 08:33; Start 11/03/16 at 09:00 Heparin Sodium/ Dextrose 500 ml @ 0 mls/hr CONT PRN IV SEE I/O RECORD Last administered on 11/10/16 00:17; Start 11/02/16 at 20:00; Stop 11/10/16 at 09:00 Heparin Sodium (Porcine) 2,800 unit PRN Q6HRS PRN IV FOR UFH LEVEL LESS THAN 0.2 Last administered on 11/03/16 17:37; Start 11/02/16 at 20:00; Stop 11/10/16 at 07:03; Status DC Heparin Sodium (Porcine) 1,400 unit PRN Q6HRS PRN IV FOR UFH LEVEL 0.2 - 0.29 Last administered on 11/05/16 06:08; Start 11/02/16 at 20:00; Stop 11/10/16 at 07:03; Status DC EZETIMIBE (Zetia) 10 mg QHS PO Last administered on 11/09/16 21:23; Start 11/02 at 21:00 Simvastatin (Zocor) 80 mg QHS PO Last administered on 11/09/16 21:25; Start at 21:00 Potassium Chloride (Klor-Con) 40 meq 1X ONCE PO Last administered on 08:01; Start 11/03/16 at 07:00; Stop 11/03/16 at 07:01; Status DC Tbo-Filgrastim (Granix) 480 mcg QHS SQ Last administered on 11/05/16 20:31; Start 11/03/16 at 21:00; Stop 11/06/16 at 16:55; Status DC Nitrofurantoin Macrocrystals (Macrobid) 100 mg BID PO Last administered on 21:25; Start 11/03/16 at 10:00 Info (Anti-Coagulation Monitoring By Pharmacy) 1 each PRN DAILY PRN MC SEE COMMENTS Last administered on 11/08/16 13:07; Start 11/03/16 at 16:00; Stop 11/10 at 07:03; Status DC Potassium Chloride 40 meq 40 meq 1X ONCE PO Last administered on 11/04/16 08: 43; Start 11/04/16 at 08:30; Stop 11/04/16 at 08:33; Status DC Rituximab 780 mg/ Sodium Chloride 780 ml @ 195 mls/hr 1X ONCE IV Last administered on 11/09/16 10:04; Start 11/09/16 at 09:00; Stop 11/09/16 at 12:59; Status DC Cyclophosphamide 1500 mg/Sodium Chloride 250 ml @ 500 mls/hr 1X ONCE IV Last administered on 11/09/16 12:17; Start 11/09/16 at 13:00; Stop 11/09/16 at 13:29; Status DC Doxorubicin HCl 100 mg/ Miscellaneous 50 ml @ 600 mls/hr 1X ONCE IV Last administered on 11/09/16 12:55; Start 11/09/16 at 13:30; Stop 11/09/16 at 13:34; Status DC Vincristine Sulfate 2 mg/ Sodium Chloride 50 ml @ 275 mls/hr 1X ONCE IV Last administered on 11/09/16 12:57; Start 11/09/16 at 13:30; Stop 11/09/16 at 13:40; Status DC Ondansetron HCl/ Sodium Chloride (Zofran/Iv Sodium Chloride 0.9% 50ml) 56 ml @ 112 mls/hr 1X ONCE IV Last administered on 11/09/16 09:35; Start 11/09/16 at 13 :00; Stop 11/09/16 at 13:29; Status DC Ondansetron HCl (Zofran) 4 mg PRN Q4HRS PRN IV NAUSEA/VOMITING; Start 11/09/16 at 09:00 Prednisone (Prednisone) 100 mg DAILY PO Last administered on 11/09/16 08:35; Start 11/09/16 at 09:00; Stop 11/13/16 at 09:01 Dexamethasone (Decadron) 20 mg 1X ONCE PO Last administered on 11/09/16 09:45 ; Start 11/09/16 at 09:30; Stop 11/09/16 at 09:31; Status DC Acetaminophen (Tylenol) 650 mg 1X ONCE PO Last administered on 11/09/16 08:41 ; Start 11/09/16 at 08:30; Stop 11/09/16 at 08:31; Status DC Diphenhydramine HCl (Benadryl) 50 mg 1X ONCE PO Last administered on 11/09/16 08:34; Start 11/09/16 at 08:30; Stop 11/09/16 at 08:31; Status DC Tbo-Filgrastim (Granix) 480 mcg QHS SQ ; Start 11/10/16 at 21:00; Stop 11/19/16 at 23:59 Oxybutynin Chloride (Ditropan) 5 mg BID PO Last administered on 11/09/16 21:25 ; Start 11/09/16 at 09:00 Heparin Sodium (Porcine) (Hep Lock Adult) 500 unit STK-MED ONCE IV ; Start at 09:36; Stop 11/09/16 at 09:37; Status DC Enoxaparin Sodium 80 mg 80 mg Q12HR SQ ; Start 11/10/16 at 09:00 Heparin Sodium/ Dextrose 500 ml @ 0 mls/hr CONT PRN IV SEE I/O RECORD; Start at 07:00; Stop 11/10/16 at 09:00; Status UNV Active Scripts Active Reported Potassium Chloride 10 Meq Capsule.er 10 Meq PO BID Fenofibrate 50 Mg Capsule 125 Mg PO DAILY Calcium (Calcium Carbonate) 600 Mg Tablet 600 Mg PO Vytorin 10-80 Mg Tablet (Ezetimibe/Simvastatin) 1 Each Tablet 1 Each PO HS Multi-Vitamin Daily (Multivitamin) 1 Each Tablet 1 Each PO DAILY Vitamin D3 (Cholecalciferol (Vitamin D3)) 5,000 Unit Tablet 1 Tab PO DAILY Zoloft (Sertraline Hcl) 50 Mg Tablet 1 Tab PO HS Tamsulosin Hcl 0.4 Mg Cap.er.24h 1 Cap PO HS Losartan Potassium 100 Mg Tablet 100 Mg PO HS Spironolactone 25 Mg Tablet 1 Tab PO DAILY Aspirin 81 Mg Tab.chew 1 Tab PO DAILY Carvedilol 25 Mg Tablet 1 Tab PO BID Vitals/I & O Vital Sign - Last 24 Hours 11/09/16 11/09/16 11/09/16 11/09/16 10:07 10:45 13:20 14:35 Temp 97.3 95.7 97.4 97.9 97.3 95.7 97.4 97.9 Pulse 85 82 93 88 Resp 20 20 20 20 B/P 120/78 125/83 104/67 125/91 Pulse Ox 96 93 94 95 O2 Delivery Room Air Room Air Room Air Room Air 11/09/16 11/09/16 11/09/16 11/09/16 17:23 19:00 20:00 21:25 Temp 96.3 96.3 Pulse 88 94 94 Resp 18 B/P 125/91 112/72 112/72 Pulse Ox 93 O2 Delivery Room Air Room Air 11/09/16 11/10/16 11/10/16 11/10/16 23:00 03:00 07:35 08:00 Temp 97.5 98.1 97.9 97.5 98.1 97.9 Pulse 102 89 75 Resp 18 18 18 B/P 119/74 107/76 129/86 Pulse Ox 94 94 96 O2 Delivery Room Air Room Air Room Air Room Air Intake and Output 11/09/16 11/09/16 11/10/16 15:00 23:00 07:00 Intake Total 180 ml 400 ml Output Total 300 ml 225 ml Balance -120 ml 400 ml -225 ml Nutrition Consultation Dietary Evaluation: Recommendations by RD: Protein supplementation Expected Outcomes/Goals: to meet > 75% est nutr needs Interpretation of weight loss: >5% in 1 month Malnutrition Findings: Muscle Mass (Severe): Mod to Severe Depletion Food and Nutrition Intake (Mod: <75% est energy req 7days Weight Status: Overweight JENNIFER QURESHI MD Nov 10, 2016 08:56
[2016-11-10] MEDS ORDERED: ENOXAPARIN ** NOTE DOSE ** SYRINGE SQ SCH (09:00)
[2016-11-10] MEDS: CALCIUM CARBONATE 500 MG TABLET PO SCH (09:16)
[2016-11-10] MEDS: CARVEDILOL 12.5 MG TABLET PO SCH (09:16)
[2016-11-10] MEDS: SPIRONOLACTONE 25 MG TABLET PO SCH (09:17)
[2016-11-10] MEDS: PREDNISONE 20 MG TABLET PO SCH (09:17)
[2016-11-10] MEDS: CHOLECALCIFEROL (VITAMIN D3) 5,000 UNIT CAPSULE PO SCH (09:17)
[2016-11-10] MEDS: FENOFIBRATE,MICRONIZED 134 MG CAPSULE PO SCH (09:17)
[2016-11-10] MEDS: NITROFURANTOIN MONOHYD/M-CRYST 100 MG CAPSULE. PO SCH (09:17)
[2016-11-10] MEDS: OXYBUTYNIN CHLORIDE 5 MG TABLET PO SCH (09:17)
[2016-11-10] MEDS: MULTIVITAMIN with MINERAL TABLET. PO SCH (09:17)
[2016-11-10 10:35] VITALS: BP 126/82
[2016-11-10] MEDS ORDERED: ANTI-COAG MONITOR BY PHARMACY. MC PRN (14:00)
[2016-11-10 14:55] VITALS: BP 110/82
[2016-11-10] MEDS ORDERED: TBO-FILGRASTIM 480 MCG/0.8 ML SYRINGE. SQ SCH (21:00)
--- NOTE | 2016-11-10 21:20 | DS ---
DATE OF DISCHARGE: 11/10/2016 HOSPITAL SUMMARY: An 81-year-old white male, patient of Dr. Chung came in with abdominal pain and a known diagnosis of large B cell lymphoma in the pelvis, which was causing obstructive uropathy and he also had leg pain and Doppler study showed DVT in the left lower leg. Chemistry profile showed a creatinine around 1.7 with a GFR of about 40. White count was initially low at 2500 and came up with treatment to 6800 and hemoglobin was low at 9.5. Urine showed hematuria. He was treated with IV heparin for the DVT and then was switched to Lovenox per Dr. Ross after his first round of chemotherapy. Dr. Griggs was consulted as well because of the outpatient nephrostomy stents and the acute renal function at that time. He is stable and able to be returned to the [facility] after his chemotherapy at this point. FINAL DIAGNOSES: 1. B cell lymphoma of the pelvis with secondary obstructive uropathy. 2. Deep vein thrombosis, left lower extremity. 3. Chronic kidney disease 3 secondary to obstructive uropathy for hematuria multifactorial. OPERATIONS, PROCEDURES AND COMPLICATIONS: None. CONSULTATIONS: Dr. Ross, Dr. Griggs. DISPOSITION: Home meds all remain the same except he can stop potassium as he is on no diuretics and he is taking spironolactone. Lovenox 80 mg subcu was ordered and other meds remain the same. Follow up with Dr. Ross on a few weeks for more chemotherapy and Dr. Griggs as needed. He will remain on Lovenox at this point for several weeks because of the DVT. PROGNOSIS: Uncertain. NESTOR ROCKWELL MD DR: CHRISTINA/miranda JOB#: [id number] / [id number]
== END 2016-11-10 16:33 | DRG 840 ==
LOC: 5 NORTH 13:48
PROVIDERS: ADMIT Family Medicine; ATTEND Family Medicine
PROC: 30233N1 Transfusion of Nonautologous Red Blood Cells into Peripheral Vein, Percutaneous Approach (ICD-10-PCS; 2016-11-03)
PROC: 3E03305 Introduction of Other Antineoplastic into Peripheral Vein, Percutaneous Approach (ICD-10-PCS; principal; 2016-11-09)
DX: C85.16 Unspecified B-cell lymphoma, intrapelvic lymph nodes (principal); D61.810 Antineoplastic chemotherapy induced pancytopenia; N17.9 Acute kidney failure, unspecified; I82.4Z2 Acute embolism and thrombosis of unspecified deep veins of left distal lower extremity; E87.0 Hyperosmolality and hypernatremia; N18.4 Chronic kidney disease, stage 4 (severe); N13.1 Hydronephrosis with ureteral stricture, not elsewhere classified; E87.6 Hypokalemia; D64.9 Anemia, unspecified; D70.1 Agranulocytosis secondary to cancer chemotherapy; I25.10 Atherosclerotic heart disease of native coronary artery without angina pectoris; I48.91 Unspecified atrial fibrillation; N39.41 Urge incontinence; N40.0 Benign prostatic hyperplasia without lower urinary tract symptoms; F32.9 Major depressive disorder, single episode, unspecified; R31.0 Gross hematuria; T45.1X5A Adverse effect of antineoplastic and immunosuppressive drugs, initial encounter; Z82.49 Family history of ischemic heart disease and other diseases of the circulatory system; Z85.820 Personal history of malignant melanoma of skin
CPT/HCPCS: 36415; 74000; 80048; 81001; 85007; 85027; 85520; 86850; 86900; 86901; 86920; J1442; J1650; J2405; J7030; J7050; J7512; J8540; J9000; J9070; J9310; J9370; P9016; Q0163; 97110; 97116; 97530; 97535

== ENCOUNTER → 2016-11-24 | Outpatient (CLI) | payer MEDICARE, BC ==
[2016-11-10 14:55] VITALS: BP 110/82
[~2016-11-24] MED LIST changes: +FENO50CA3 PO; +IOHEXOL 240 MG/ML 50ML VIAL. PO ONE; +POTA10CA PO
--- NOTE | 2016-11-24 12:23 | RAD ---
CT of the chest, abdomen and pelvis without contrast, 11/24/2016: History: Follow-up lymphoma No IV contrast was administered for this study as requested. Oral contrast material was given for GI tract opacification. A left Port-A-Cath extends into the superior vena cava. There is moderate calcific plaquing of the thoracic aorta and the coronary arteries. The ascending aorta is mildly dilated measuring 4.3 cm in width and is unchanged. No mediastinal adenopathy is seen. No axillary adenopathy is evident. Previously seen small pleural effusions and basilar atelectasis have resolved. Reticular opacities in the right lung base laterally are unchanged and are probably due to scarring. A tiny 2 mm nodule in the medial aspect of the left upper lobe seen on image 28 of series #2 is unchanged since 10/16/2016. This may be a granuloma or scar. The unopacified liver is unremarkable. There is a gallstone in the dependent aspect of the gallbladder. No gallbladder inflammatory changes are evident. The pancreas is unremarkable. The spleen is of normal size. Bilateral ureteral stents have been placed and appear to be in satisfactory positions. Previously seen hydronephrosis has resolved. There is a 4.1 cm infrarenal abdominal aortic aneurysm as noted on the previous study. Abnormal soft tissue surrounding the distal aorta aorta and iliac arteries has regressed. There is greater extension into the left iliac region than the right. At the level of the aortic bifurcation this process measured 7.8 x 12.1 cm on 10/11/2016. When measured at the same level. Now measures 4.1 x 8.2 cm. No new adenopathy is seen. The prostate gland is enlarged. The bowel loops are not dilated. No free fluid is evident in the abdomen or pelvis. 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 The L2 vertebral compression fracture is unchanged. 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 The T6 vertebral compression fracture also appears unchanged. IMPRESSION: 1. Considerable interval regression of the lymphomatous tumor encasing the distal abdominal and iliac arteries since 10/11/2016. 2. Bilateral ureteral stents have been placed with resolution of the previously seen bilateral hydronephrosis. 3. Stable aneurysm of the distal abdominal aorta. 4. Unchanged mild dilatation of the ascending aorta. 5. Moderate coronary artery disease. 6. Interval clearing of the lung bases. 7. Unchanged tiny left upper lobe nodule or scar. 8. Stable musculoskeletal findings. 9. Prostatic enlargement. 10. Cholelithiasis PQRS Compliance Statement: One or more of the following individualized dose reduction techniques were utilized for this examination: 1. Automated exposure control 2. Adjustment of the mA and/or kV according to patient size 3. Use of iterative reconstruction technique
== END | disposition home or self-care (01) ==
LOC: CT 09:45
PROVIDERS: ATTEND Psychiatry & Neurology Child & Adolescent Psychiatry
DX: C83.33 Diffuse large B-cell lymphoma, intra-abdominal lymph nodes (principal)
CPT/HCPCS: 71250; 74176

== ENCOUNTER 2016-12-05 10:25 | Day surgery (SDC) | payer MEDICARE, BC ==
[~2016-12-05] VITALS: Ht 180.3 cm; Wt 85.3 kg
[~2016-12-05 10:25] MED LIST changes: +ENOX40DI SQ; +FENTANYL PF 100 MCG/2 ML VIAL. IV PRN; +HYDROMORPHONE 2 MG/ML VIAL. IV PRN; -IOHEXOL 240 MG/ML 50ML VIAL. PO ONE; +IV RINGERS,LACTATED 1000ML 1,000 ML IV SCH; +KETOROLAC 30 MG/ML SYRINGE FOR OR. INJ ONE; +LIDOCAINE 1% 1 ML SYRINGE. ID PRN; +LIDOCAINE 2% 100 MG/5 ML DISP.SYRIN. ONE; +MORPHINE SULFATE 2 MG/ML DISP.SYRIN. IV PRN; +ONDANSETRON PF 4 MG/2 ML VIAL. IV PRN; +ONDANSETRON PF 4 MG/2 ML VIAL. ONE; +PROCHLORPERAZINE 10 MG/2 ML VIAL. IV PRN; +PROPOFOL 20 ML IV ONE; +SEVOFLURANE 16 TO 30 MINUTES. IH ONE
--- NOTE | 2016-12-05 13:43 | PDOC ---
BRIEF OPERATIVE NOTE Date: Dec 05, 2016 Pre-Op Diagnosis Bilateral Hydronephrosis, Lymphoma Post-Op Diagnosis Same Procedure Performed Cystoscopy removal of bilateral ureteral stents Surgeon Indu Anesthesia Type: General Specimens Obtained 2 ureteral stents removed and discarded Findings Same Complications None Additional Remarks Home with Rx Cipro for 3 days f/u with Dr Ross-Oncology IVA LR DO Dec 05, 2016 13:43
--- NOTE | 2016-12-05 13:45 | DISCH ---
DISCHARGE INSTRUCTIONS Condition on Discharge Condition on Discharge: Stable Activity After Discharge Activity Instructions for Disc: Resume previous activity Driving Instructions after Dis: Do not drive today Diet after Discharge Diet after Discharge: Regular Contacting the [facility] after DC Call your doctor for: Concerns you may have Follow-Up Follow up with: With Dr. Ross Treatment/Equipment after DC Comment: May resume blood thinners tomorrow IVA LR DO Dec 05, 2016 13:45
[2016-12-05] MEDS ORDERED: NEOMY/BACITR/POLYMYXIN OINT PACKET. TP ONE ×2 (14:33→14:43)
[2016-12-05 14:50] VITALS: BP 129/86
--- NOTE | 2016-12-05 17:07 | OP ---
DATE OF SURGERY: 12/05/2016 PREOPERATIVE DIAGNOSES: Bilateral hydronephrosis, lymphoma. POSTOPERATIVE DIAGNOSES: Bilateral hydronephrosis, lymphoma. PROCEDURE: Cystoscopy, removal of bilateral ureteral stents. SURGEON: Iva Lr DO. ANESTHESIA: General. INDICATIONS AND JUDGMENT: This 81-year-old male with a history of a large retroperitoneal mass which was diagnosed as lymphoma. At that time, bilateral stents were placed due to bilateral hydronephrosis secondary to this large retroperitoneal tumor. The patient has been treated by Oncology. The retroperitoneal tumor has regressed in size and it was felt that the stents could be removed. This was explained to the patient. He appeared to understand and was agreeable. DESCRIPTION OF PROCEDURE: The patient was preloaded with Levaquin 500 mg IV, taken to the operating room and placed on the operating room table in a supine position, given a general anesthetic with satisfactory results. He was then placed in a dorsolithotomy position using Henry stirrups since we do not have a cystoscopy table. After the patient had been prepped and draped in sterile fashion, rigid cystoscopy was performed. The urethra was normal in course and caliber. The prostate was visualized. He has a 25 gram prostate with visual obstruction. The scope was advanced into the bladder. The distal portions of the bilateral ureteral stents were identified. I grasped the distal portion of the right stent and removed it without difficulty. I then repeated cystoscopy exam and the distal portion of the left ureteral stent was identified. It was grasped with grasping forceps and removed without difficulty. There were no other objects in the bladder. The instruments were removed. He tolerated the procedure well and was sent to recovery room in satisfactory condition. The patient was sent home with a prescription for Cipro 500 mg p.o. b.i.d. for 3 days. He will follow up with Oncology. IVA LR DO DR: VALERIA/miranda JOB#: [id number] / [id number] IRWIN Bose MD
== END 2016-12-05 15:11 | disposition home or self-care (01) ==
LOC: SURG 10:25
PROVIDERS: ATTEND Urology
DX: N13.30 Unspecified hydronephrosis (principal); C85.90 Non-Hodgkin lymphoma, unspecified, unspecified site; E78.00 Pure hypercholesterolemia, unspecified; I48.91 Unspecified atrial fibrillation; I10 Essential (primary) hypertension; M19.90 Unspecified osteoarthritis, unspecified site; F32.9 Major depressive disorder, single episode, unspecified; Z96.652 Presence of left artificial knee joint; Z87.39 Personal history of other diseases of the musculoskeletal system and connective tissue
CPT/HCPCS: 52310; J1956; J2405; J2704; J1885

== ENCOUNTER → 2016-12-12 | Outpatient (CLI) | payer MEDICARE, BC ==
[~2016-12-12] MED LIST changes: +ACETAMINOPHEN 325 MG TABLET. PO ONE; +DIPHENHYDRAMINE HCL 25 MG CAPSULE PO ONE; -FENTANYL PF 100 MCG/2 ML VIAL. IV PRN; +FUROSEMIDE 20 MG/2 ML VIAL. IVP ONE; +HEPARIN PF 500 UNIT/5 ML DISP.SYRIN. IV ONE; -HYDROMORPHONE 2 MG/ML VIAL. IV PRN; -IV RINGERS,LACTATED 1000ML 1,000 ML IV SCH; -KETOROLAC 30 MG/ML SYRINGE FOR OR. INJ ONE; -LIDOCAINE 1% 1 ML SYRINGE. ID PRN; -LIDOCAINE 2% 100 MG/5 ML DISP.SYRIN. ONE; -MORPHINE SULFATE 2 MG/ML DISP.SYRIN. IV PRN; -ONDANSETRON PF 4 MG/2 ML VIAL. IV PRN; -ONDANSETRON PF 4 MG/2 ML VIAL. ONE; -PROCHLORPERAZINE 10 MG/2 ML VIAL. IV PRN; -PROPOFOL 20 ML IV ONE; -SEVOFLURANE 16 TO 30 MINUTES. IH ONE
[2016-12-12 08:22] VITALS: BP 107/69
[2016-12-12 09:00] LABS: HEMATOCRIT 19.3 % (39.0-53.0); HEMOGLOBIN 6.4 g/dL (13.0-17.5)
[2016-12-12 09:56] VITALS: BP 132/72
[2016-12-12 11:00] VITALS: BP 117/89
[2016-12-12 12:12] VITALS: BP 127/79
[2016-12-12 13:15] VITALS: BP 104/76
[2016-12-12 14:14] VITALS: BP 126/81
== END | disposition home or self-care (01) ==
LOC: OPS 08:03
PROVIDERS: ATTEND Internal Medicine Hematology & Oncology
DX: C83.33 Diffuse large B-cell lymphoma, intra-abdominal lymph nodes (principal)
CPT/HCPCS: 36415; 36430; 36591; 85014; 85018; 86850; 86900; 86901; 86920; 96374; 96523; P9016; Q0163

== ENCOUNTER → 2016-12-15 | Outpatient (CLI) | payer MEDICARE, BC ==
[2016-12-12 14:14] VITALS: BP 126/81
[~2016-12-15] MED LIST changes: -ACETAMINOPHEN 325 MG TABLET. PO ONE; -DIPHENHYDRAMINE HCL 25 MG CAPSULE PO ONE; -FUROSEMIDE 20 MG/2 ML VIAL. IVP ONE; -HEPARIN PF 500 UNIT/5 ML DISP.SYRIN. IV ONE
--- NOTE | 2016-12-15 10:58 | RAD ---
Left lower extremity venous Doppler ultrasound History: Follow-up of deep venous thrombosis. Comparison: Left lower extremity venous Doppler 11/02/2016. Procedure: Color Doppler, spectral Doppler, and grayscale images are obtained with and without compression in the area of the common femoral vein, superficial femoral vein - femoral vein junction, main femoral vein (superficial femoral vein) and popliteal vein. Veins of the proximal calf are also imaged. Findings: There is significant interval improvement in burden of the left lower extremity deep venous thrombosis. On current examination, there is nonocclusive, mixed echogenicity residual chronic deep venous thrombosis involving the left common femoral vein where previously the left common femoral vein was expanded by hypoechoic thrombosis. The left femoral vein, popliteal vein, and calf veins are without evidence of deep venous thrombosis on current examination and previously identified thrombosis in these veins has resolved. Subcutaneous interstitial edema is seen involving the left popliteal region and the lower leg. Impression: Marked interval improvement in burden of left lower extremity venous thrombosis. Current examination demonstrates a small amount of residual chronic deep venous thrombosis involving the left common femoral vein.
== END | disposition home or self-care (01) ==
LOC: US 09:38
PROVIDERS: ATTEND Internal Medicine Hematology & Oncology
DX: I82.402 Acute embolism and thrombosis of unspecified deep veins of left lower extremity (principal)
CPT/HCPCS: 93971

== ENCOUNTER → 2016-12-28 | Outpatient (CLI) | payer MEDICARE, BC ==
[2016-12-12 14:14] VITALS: BP 126/81
[~2016-12-28] MED LIST changes: +IOHEXOL 240 MG/ML 50ML VIAL. PO ONE
--- NOTE | 2016-12-28 15:28 | RAD ---
CT of the chest, abdomen and pelvis without contrast, 12/28/2016: History: Restaging lymphoma Multidetector CT imaging was performed following oral ingestion of contrast. No IV contrast was administered due to the patient's known renal insufficiency. Comparison is made to an exam from 11/24/2016. A left Port-A-Cath extends into the superior vena cava. There is moderate calcific plaquing of the thoracic aorta. There is mild unchanged dilatation of the ascending aorta. Considerable coronary artery calcifications are present. The heart is mildly enlarged. No mediastinal adenopathy is seen. There is a trace amount of bilateral pleural fluid. There is a tiny unchanged nodule in the medial aspect of the left lobe, likely a granuloma or scar. A few scattered linear parenchymal opacities persist and are probably scars. No new pulmonary abnormality is seen. The unopacified liver is unremarkable. A gallstone is again noted within the dependent aspect of the gallbladder. No pericholecystic edema is present. The pancreas is unremarkable. No splenic abnormality is seen. There is bilateral renal cortical scarring. There is a small cyst arising from the lower pole the left kidney. The ureteral stents have been removed. There is no significant hydronephrosis. Again noted is extensive calcific plaquing of the abdominal aorta and its branches. There is a 4.1 cm infrarenal abdominal aortic aneurysm which is unchanged. Abnormal soft tissue surrounding the distal abdominal aorta and extending into the iliac regions,, left greater than right, is again identified. Some of this process appears to be unchanged while in other areas this soft tissue process has decreased slightly in size by 2 to 3 mm. No worsening adenopathy is seen. Moderate prostatic enlargement is again noted. The urinary bladder is unremarkable. The bowel loops are not dilated. There is mild streaky increased density in the mesenteric fat, particularly in the pelvis, greater than on the previous study. There is also subcutaneous edema best seen in the lower pelvic and hip regions which has increased. The findings suggest mild anasarca. Previously seen Pagetoid changes involving the right hemipelvis, sacrum and L2 vertebrae are unchanged. The L2 and T6 vertebral compression fractures are also unchanged. IMPRESSION: 1. Abnormal soft tissue encasing the distal abdominal aorta and iliac arteries, left greater than right has has improved slightly since 11/24/2016. 2. The bilateral ureteral stents have been removed with no current evidence of hydronephrosis. 3. Mild streaky mesenteric edema in the upper pelvis has increased, as well as subcutaneous edema in the pelvis and hips, suggesting mild anasarca. 4. Tiny bilateral pleural effusions have developed. 5. Multiple other chronic miscellaneous findings as described above. PQRS Compliance Statement: One or more of the following individualized dose reduction techniques were utilized for this examination: 1. Automated exposure control 2. Adjustment of the mA and/or kV according to patient size 3. Use of iterative reconstruction technique
== END | disposition home or self-care (01) ==
LOC: CT 12:35
PROVIDERS: ATTEND Internal Medicine Hematology & Oncology
DX: C83.33 Diffuse large B-cell lymphoma, intra-abdominal lymph nodes (principal); J90 Pleural effusion, not elsewhere classified
CPT/HCPCS: 71250; 74176

== ENCOUNTER → 2017-01-03 | Outpatient (CLI) | payer MEDICARE, BC ==
[~2017-01-03] MED LIST changes: +ACETAMINOPHEN 325 MG TABLET. PO ONE; +FUROSEMIDE 20 MG/2 ML VIAL. IVP ONE; +HEPARIN PF 500 UNIT/5 ML DISP.SYRIN. IV ONE; -IOHEXOL 240 MG/ML 50ML VIAL. PO ONE; +diphenhydrAMINE HCL 25 MG CAPSULE PO ONE
[2017-01-03 07:20] VITALS: BP 110/70
[2017-01-03 07:39] LABS: HEMATOCRIT 22.2 % (39.0-53.0); HEMOGLOBIN 7.4 g/dL (13.0-17.5)
[2017-01-03 09:25] VITALS: BP 111/74
[2017-01-03 10:25] VITALS: BP 114/79
[2017-01-03 10:47] VITALS: BP 129/91
[2017-01-03 11:11] VITALS: BP 112/87
[2017-01-03 12:04] VITALS: BP 150/96
== END | disposition home or self-care (01) ==
LOC: OPS 06:59
PROVIDERS: ATTEND Internal Medicine Hematology & Oncology
DX: C83.33 Diffuse large B-cell lymphoma, intra-abdominal lymph nodes (principal)
CPT/HCPCS: 36415; 36430; 85014; 85018; 86850; 86900; 86901; 86920; 96374; P9016; Q0163

== ENCOUNTER 2017-02-26 08:56 | Inpatient (IN) | payer MEDICARE, BC ==
[2017-02-26] VITALS (16 sets, daily range): BP systolic 95–126; BP diastolic 50–72
[~2017-02-26] VITALS: Ht 180.3 cm; Wt 74.8 kg
[~2017-02-26 08:56] MED LIST changes: -ACETAMINOPHEN 325 MG TABLET. PO ONE; +ASPI-630 PO; -ASPI81TA2 PO; -EZET1TAB19 PO; +EZET1TAB41 PO; -FUROSEMIDE 20 MG/2 ML VIAL. IVP ONE; -HEPARIN PF 500 UNIT/5 ML DISP.SYRIN. IV ONE; -POTA10CA PO; +POTASSIUM CHLO10 MEQ PO; -diphenhydrAMINE HCL 25 MG CAPSULE PO ONE
[2017-02-26] MEDS ORDERED: 0.9 % SODIUM CHLORIDE 10 ML DISP.SYRIN. IV PRN (09:15)
--- NOTE | 2017-02-26 09:21 | PHYS DOC ---
Past Medical History Past Medical History: Cancer (lymphoma), Hypertension Past Surgical History: Knee Replacement (left knee replacement) Alcohol Use: None Drug Use: None Adult General Chief Complaint Chief Complaint: HIP PAIN HPI HPI He is a pleasant 81-year-old male who lives independently in his own taking care of himself and do all activities of daily living without issue presents with right hip pain that began for 5 days ago. Patient is a lymphoma patient presently getting chemotherapy treatments every 21 days last treatment was this last Sunday. He is noted increased swelling and pain on the lateral aspect of his right hip despite not having remembered fallen. 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 He is noted increased redness and swelling with black and blue ruelas to his right thigh right buttock with increased swelling and pain. Pain is increased with walking and ambulation better with lying down or remaining still. He also feels very lightheaded and dizzy with standing he has had a transfusion within the last week secondary to anemia secondary to the lymphoma treatment and chemotherapy. Patient denies any fevers, chills, nausea, vomiting, diarrhea, black tarry stools, chest pain, shortness of breath with exertion. He only feels very fatigued and tired like he can sleep all day. In good spirits with no change in medication regiment and is admittedly tripped but not fallen he has banged his shins a number of times on the [place]. He lives independently by himself. Differential diagnosis for chest pain: Pericarditis, myocarditis, endocarditis, pneumothorax, pneumonia, aortic dissection, esophageal spasm, esophagitis, peptic ulcer disease, acute coronary syndrome, mediastinitis, Boerhaave syndrome , musculoskeletal chest wall pain, costochondritis, intercostal strain, rib fracture, pulmonary contusion, pneumonitis, pleural effusion, pericardial effusion, pericardial tamponode, and pleurisy. Be considered as part of the diagnosis for his dizziness. Patient also had a screening CBC, CMP, cardiac enzymes, EKG chest x-ray CT of the head to make sure is not bleeding in his brain causing the dizziness as well as a CT of abdomen and pelvis without contrast looking for bleeding into the soft tissues of the right gluteus ariella. Review of Systems Review of Systems Constitutional: Denies fever or chills [] Eyes: Denies change in visual acuity, redness, or eye pain [] HENT: Denies nasal congestion or sore throat [] Respiratory: Denies cough or shortness of breath [] Cardiovascular: No additional information not addressed in HPI [] GI: Denies abdominal pain, nausea, vomiting, bloody stools or diarrhea [] : Denies dysuria or hematuria [] Musculoskeletal: Denies back pain or joint pain [] Integument: Denies rash or skin lesions [] Neurologic: Denies headache, he just complains of being generally weak. With localized swelling to the right thigh and buttock. Endocrine: Denies polyuria or polydipsia [] Current Medications Current Medications Current Medications Medications (Trade) Dose Ordered Sig/Selena Start Time Stop Time Status Last Admin Dose Admin Sodium Chloride (Normal Saline Flush) 10 ml QSHIFT PRN 02/26/17 09:15 Allergies Allergies Allergies Coded Allergies Type Severity Reaction Last Updated Verified No Known Drug Allergies 02/22/17 No Physical Exam Physical Exam Constitutional: Well developed, well nourished, no acute distress, non-toxic appearance. Patient is well-hydrated injuries. Smiling interactive and appropriate. Bright-eyed very lucid HENT: Normocephalic, atraumatic, bilateral external ears normal, oropharynx moist, no oral exudates, nose normal. [] Eyes: PERRLA, EOMI, conjunctiva normal, no discharge. [] Neck: Normal range of motion, no tenderness, supple, no stridor. [] Cardiovascular:Heart rate regular rhythm, no murmur [] Lungs & Thorax: Bilateral breath sounds clear to auscultation [] Abdomen: Bowel sounds normal, soft, no tenderness, no masses, no pulsatile masses. [] Skin: Marked soft tissue swelling and ecchymosis noted on the lateral thigh of the right and into the gluteals ariella gluteus minimus. It is tender to palpation with some bogginess to the skin there is chronic lymphedema great plus to all way to the mid thigh. On both legs. Back: No tenderness, no CVA tenderness. [] Extremities: No tenderness, no cyanosis, no clubbing, ROM intact, does have marked edema of the right lower leg. He has range of motion is intact at both hips with no pain with axial loading into the right hip. It is not held in external rotation. Neurologic: Alert and oriented X 3, normal motor function, normal sensory function, no focal deficits noted. [] Psychologic: Affect normal, judgement normal, mood normal. [] Current Patient Data Vital Signs Vital Signs Date Time Temp Pulse Resp B/P (MAP) Pulse Ox O2 Delivery O2 Flow Rate FiO2 02/26/17 09:08 97.7 81 16 117/66 (83) 96 Room Air 97.7 Lab Values Laboratory Tests Test 02/26/17 09:40 White Blood Count 22.6 x10^3/uL (4.0-11.0) H Red Blood Count 1.64 x10^6/uL (4.30-5.70) L Hemoglobin 5.8 g/dL (13.0-17.5) *L Hematocrit 16.1 % (39.0-53.0) *L Mean Corpuscular Volume 98 fL (79-100) Mean Corpuscular Hemoglobin 35 pg (25-35) Mean Corpuscular Hemoglobin Concent 36 g/dL (31-37) Red Cell Distribution Width 21.9 % (11.5-14.5) H Platelet Count 136 x10^3/uL (140-400) L Neutrophils (%) (Auto) 94 % (31-73) H Lymphocytes (%) (Auto) 2 % (24-48) L Monocytes (%) (Auto) 4 % (0-9) Eosinophils (%) (Auto) 0 % (0-3) Basophils (%) (Auto) 0 % (0-3) Neutrophils # (Auto) 21.2 x10^3uL (1.8-7.7) H Lymphocytes # (Auto) 0.5 x10^3/uL (1.0-4.8) L Monocytes # (Auto) 0.8 x10^3/uL (0.0-1.1) Eosinophils # (Auto) 0.0 x10^3/uL (0.0-0.7) Basophils # (Auto) 0.0 x10^3/uL (0.0-0.2) Platelet Estimate Pending Sodium Level 136 mmol/L (136-145) Potassium Level 5.7 mmol/L (3.5-5.1) H Chloride Level 103 mmol/L (98-107) Carbon Dioxide Level 25 mmol/L (21-32) Anion Gap 8 (6-14) Blood Urea Nitrogen 68 mg/dL (8-26) H Creatinine 1.6 mg/dL (0.7-1.3) H Estimated GFR (Cockcroft-Gault) 41.5 Glucose Level 119 mg/dL (70-99) H Calcium Level 9.1 mg/dL (8.5-10.1) Magnesium Level Pending Total Bilirubin Pending Direct Bilirubin Pending Aspartate Amino Transferase (AST) Pending Alanine Aminotransferase (ALT) Pending Alkaline Phosphatase Pending Total Protein Pending Albumin Pending Laboratory Tests 02/26/17 09:40 Laboratory Tests 02/26/17 09:40 EKG EKG [] EKG timed 9:29 AM 02/26/2017 demonstrates sinus rhythm with a heart rate of 85 there are frequent PVCs there is also left axis deviation is noted based on the lead re-patient has some nonseptic T-wave flattening in the anterior leads as well no obvious signs of STEMI. By Dr. Wiggins. Interpretation Time: Laboratory Tests Test 02/26/17 09:40 White Blood Count 22.6 x10^3/uL (4.0-11.0) Red Blood Count 1.64 x10^6/uL (4.30-5.70) Hemoglobin 5.8 g/dL (13.0-17.5) Hematocrit 16.1 % (39.0-53.0) Mean Corpuscular Volume 98 fL (79-100) Mean Corpuscular Hemoglobin 35 pg (25-35) Mean Corpuscular Hemoglobin Concent 36 g/dL (31-37) Red Cell Distribution Width 21.9 % (11.5-14.5) Platelet Count 136 x10^3/uL (140-400) Neutrophils (%) (Auto) 94 % (31-73) Lymphocytes (%) (Auto) 2 % (24-48) Monocytes (%) (Auto) 4 % (0-9) Eosinophils (%) (Auto) 0 % (0-3) Basophils (%) (Auto) 0 % (0-3) Neutrophils # (Auto) 21.2 x10^3uL (1.8-7.7) Lymphocytes # (Auto) 0.5 x10^3/uL (1.0-4.8) Monocytes # (Auto) 0.8 x10^3/uL (0.0-1.1) Eosinophils # (Auto) 0.0 x10^3/uL (0.0-0.7) Basophils # (Auto) 0.0 x10^3/uL (0.0-0.2) Radiology/Procedures Radiology/Procedures [] Course & Med Decision Making Course & Med Decision Making Pertinent Labs and Imaging studies reviewed. (See chart for details) Received a phone call from laboratory concerning for low H&H of 5.8 and 16. Given patient's symptomatology of near-syncope lightheaded dizziness and sleepiness with standing. I elected to type and screen and then type and cross patient for 3 units. He denies any chest pain or shortness of breath but he does have some mild exertional dyspnea as well as questionable falling at home. Given the fact he is on Lovenox and there is a large hematoma in his right hip where believe that the bleeding is actually continuing at this point patient will need to be seen possibly by hematology and internal medicine diminishes Lovenox and bleeding potential. Wheat Inspector note: Dr. Chung paged at 10:08 Wheat Inspector called at of the service Consult called back at Discussed the case I presented and they agreed with admission. Time of acceptance [] Differential diagnosis for anemia could be active ongoing bleeding, and rest of hemopoietic cells grading red blood cell mass. Chemotherapy side effects. Impression: Anemia secondary to chemotherapy and continued blood loss and the hematoma of the right thigh. This secondary to hypocoagulable state secondary Lovenox usage. Disposition admission to the hospital to treat anemia and bleeding potential. Dragon Disclaimer Dragon Disclaimer This electronic medical record was generated, in whole or in part, using a voice recognition dictation system. Departure Departure Impression: Primary Impression: B-cell lymphoma Additional Impressions: Anemia Dizziness Hematoma Disposition: ADMITTED INPATIENT Admitting Physician: Ayala Chung Condition: GUARDED Referrals: AYALA CHUNG MD (PCP) Problem Qualifiers JONATHAN WIGGINS MD Feb 26, 2017 09:21
[2017-02-26] MEDS ORDERED: IV NORMAL SALINE 1000ML BAG 1,000 ML IV SCH (09:30)
--- NOTE | 2017-02-26 09:34 | RAD ---
Examination: Single frontal view chest History: History of dizziness Comparison: 10/12/2016 Findings: Left-sided Port-A-Cath is in place. The cardiomediastinal silhouette demonstrates mild cardiomegaly. Minimal bibasal lung atelectasis. Minimal prominent appearing bilateral interstitial markings. Subtle linear airspace opacity in the left upper lobe of the lung. Impression: 1. Minimal prominent appearing bilateral interstitial lung markings likely congestive changes. 2. Minimal bibasal lung airspace opacities likely atelectasis. Subtle linear airspace opacity identified in the left upper lobe of the lung likely atelectasis or infiltrate. Follow-up to resolution.
[2017-02-26 09:50] LABS: BASO % 0 % (0-3); EOS % 0 % (0-3); LYMPH # 0.5 x10^3/uL (1.0-4.8); LYMPH % 2 % (24-48); MEAN CORPUSCULAR HEMOGLOBIN 35 pg (25-35); MEAN CORPUSCULAR HGB CONC 36 g/dL (31-37); MEAN CORPUSCULAR VOLUME 98 fL (79-100); MONO % 4 % (0-9); NEUT % 94 % (31-73); PLATELET COUNT 136 x10^3/uL (140-400); RED BLOOD COUNT 1.64 x10^6/uL (4.30-5.70); RED CELL DISTRIBUTION WIDTH 21.9 % (11.5-14.5); WHITE BLOOD COUNT 22.6 x10^3/uL (4.0-11.0)
[2017-02-26 09:59] LABS: HEMATOCRIT 16.1 % (39.0-53.0); HEMOGLOBIN 5.8 g/dL (13.0-17.5)
--- NOTE | 2017-02-26 10:07 | RAD ---
CT head without contrast History: Dizziness. Comparison: None. Procedure: Axial images are obtained of the head from the skull base through the vertex without IV contrast. Findings: The ventricles and sulci are normal for the patient's age. No mass-effect, intracranial mass, midline shift, hemorrhage or obvious acute infarction is identified. Basilar cisterns are patent. Bone windows demonstrate no significant calvarial abnormality. The visualized paranasal sinuses appear clear. Moderate bilateral periventricular white matter hypodensities likely chronic small vessel ischemic disease. Impression: 1. No acute intracranial process. PQRS Compliance Statement: One or more of the following individualized dose reduction techniques were utilized for this examination: 1. Automated exposure control 2. Adjustment of the mA and/or kV according to patient size 3. Use of iterative reconstruction technique faint
[2017-02-26 10:09] LABS: CALCIUM 9.1 mg/dL (8.5-10.1); CREATININE 1.6 mg/dL (0.7-1.3); GFR 41.5
[2017-02-26 10:15] LABS: ALBUMIN 2.9 g/dL (3.4-5.0); DIRECT BILIRUBIN 0.1 mg/dL (0.0-0.2); TOTAL BILIRUBIN 0.3 mg/dL (0.2-1.0); TOTAL PROTEIN 5.3 g/dL (6.4-8.2)
[2017-02-26 10:19] LABS: POTASSIUM 5.7 mmol/L (3.5-5.1)
--- NOTE | 2017-02-26 10:27 | RAD ---
Examination: CT abdomen and pelvis without contrast History: Right hip pain Comparison: 12/28/2016 Technique: Axial CT images of the abdomen pelvis were performed without contrast. Coronal and sagittal reformats were performed. PQRS Compliance Statement: One or more of the following individualized dose reduction techniques were utilized for this examination: 1. Automated exposure control 2. Adjustment of the mA and/or kV according to patient size 3. Use of iterative reconstruction technique. Findings: Mild linear bibasal lung atelectasis or scarring changes. Coronary artery calcifications Examination is limited without IV contrast and oral contrast. The visualized noncontrasted liver, spleen, adrenals grossly appears unremarkable. The gallbladder is mildly distended. There is a small calcified gallstone identified within the gallbladder proximally similar to prior exam. The stomach is mildly distended. The visualized pancreas grossly appears unremarkable. The small bowel is nondilated. Feces and gas noted in the colon. Normal-appearing appendix. Few sigmoid colon diverticulosis. Urinary bladder is mildly distended. Mildly enlarged prostate gland. No evidence of intrarenal collecting system calculi or hydronephrosis. There is infrarenal abdominal aortic aneurysm measuring 4.2 cm. Abnormal soft tissue identified surrounding the distal aorta at the aortic arteries extending more about the left iliac artery region compared to the right. At the level of aortic bifurcation this soft tissue density measures 3.6 cm in AP dimension compared to prior exam dated measures 4.5 cm. There is abnormal enlargement of the right gluteus medius muscle with hyperdense appearing gluteus medius muscle on the right extending inferiorly with Hounsfield units of 50. 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 Metallic coils identified in the left retroperitoneum similar to prior exam.. Impression: 1. Significant diffuse enlarged appearing right gluteus medius muscle with hyperdensity diffusely within the right gluteus medius muscle. Differential includes large hematoma or soft tissue density involving the right gluteus medius muscle. Correlate clinically. 2. Soft tissue density identified encasing the distal abdominal aorta and the iliac arteries slightly decreased compared to prior exam likely known lymphomatous tumor. 3. Unchanged intraluminal abdominal aortic aneurysm.
[2017-02-26] MEDS ORDERED: ACETAMINOPHEN 325 MG TABLET. PO PRN (10:30)
[2017-02-26] MEDS ORDERED: ONDANSETRON PF 4 MG/2 ML VIAL. IV PRN (10:30)
[2017-02-26 10:52] LABS: BILIRUBIN,URINE NEGATIVE (NEG); GLUCOSE,URINE NEGATIVE (NEG); NITRITE,URINE POSITIVE (NEG); PH,URINE 5.5; PROTEIN,URINE NEGATIVE (NEG-TRACE); UROBILINOGEN,URINE 0.2 mg/dL (0.2 mg/dL)
[2017-02-26 11:09] LABS: BACTERIA,URINE MANY /HPF (0-FEW); RBC,URINE 0 /HPF (0-2); SQUAMOUS EPITHELIAL CELL,UR FEW /LPF; WBC,URINE 20-40 /HPF (0-4)
--- NOTE | 2017-02-26 12:22 | EKG ---
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
[2017-02-26] MEDS: IV NORMAL SALINE 1000ML BAG 1,000 ML IV SCH (15:00)
[2017-02-26 16:41] LABS: PLT ESTIMATE ADEQUATE (ADEQUATE)
[2017-02-26 16:42] LABS: ANISOCYTOSIS MOD
[2017-02-27] VITALS (17 sets, daily range): BP systolic 65–120; BP diastolic 40–70
[2017-02-27] MEDS ORDERED: FURO20TA3 PO (00:08)
[2017-02-27] MEDS ORDERED: AMIO200T2 PO (00:08)
--- NOTE | 2017-02-27 01:49 | ACF ---
Admission Forms Criteria ANEMIA, IRON DEFICIENCY OR UNSPECIFIED Clinical Indications for Inpatient Care (Place 'X' for any and all applicable criteria): Admission is indicated for ANY ONE of the following(1)(2)(3)(4)(5)(6)(7): [X] I. Inpatient admission required rather than observation care (Also use Anemia, Iron Deficiency or Unspecified: Observation Care guideline as appropriate) because of ANY ONE of the following: [] a) Hemodynamic instability that is severe or persistent [] b) Active bleeding that cannot be rapidly controlled [] c) CVS symptoms (i.e., dyspnea, chest pain, heart failure) that are severe or persistent [] d) Neurologic symptoms (i.e., cognitive impairment, recurrent syncope or near syncope) that are severe or persistent [] e) Cardiac arrhythmias of immediate concern [] f) Acute peripheral ischemia (e.g., pulseless, cool, mottled, or cyanotic extremity) [] g) High-risk low platelet count [] h) Acute renal failure [X] i) Ongoing transfusion for blood loss (greater than 2 units) [] j) IV fluid to replace significant ongoing (eg, >24 hours) losses (> 3 L/m2 per day) [] k) Pulmonary artery catheter monitoring [] l) Supplemental oxygen or respiratory treatments for over 24 hours that are performable only in acute inpatient setting [] m) Immediate inpatient surgery [X] n) Other condition, treatment or monitoring requiring inpatient admission [] II Active massive hemorrhage [] III. Active hemolysis with rapidly progressive anemia [A](6) Extended stay beyond goal length of stay may be needed for (17)(18) []a) Diagnosed cause of anemia requiring longer hospitalization (eg, active GI bleeding, immune hemolysis requiring electrophoresis, complications of malignancy requiring acute care []b) Continued emergent anemia indicators (23) []c) Transfusion reactions []d) Associated leukopenia or thrombocytopenia needing inpatient care []e) Active comorbidities (eg, renal failure, heart failure) The original [facility] Care Guidelines content created by [facility] Care Guidelines has been revised. The portions of the content which have been revised are identified through the use of italic text or in bold. [facility] Guidelines has neither reviewed nor approved the modified material. All other unmodified content is copyright [facility] Care Guidelines. Please see references footnoted in the original [facility] edition 2016 Admission Criteria Met?: Yes DAYSI MORALES Feb 27, 2017 01:49
[2017-02-27 06:44] LABS: BASO % 0 % (0-3); EOS % 0 % (0-3); HEMATOCRIT 21.3 % (39.0-53.0); HEMOGLOBIN 7.4 g/dL (13.0-17.5); LYMPH # 0.8 x10^3/uL (1.0-4.8); LYMPH % 5 % (24-48); MEAN CORPUSCULAR HEMOGLOBIN 32 pg (25-35); MEAN CORPUSCULAR HGB CONC 35 g/dL (31-37); MEAN CORPUSCULAR VOLUME 92 fL (79-100); MONO % 4 % (0-9); NEUT % 90 % (31-73); PLATELET COUNT 120 x10^3/uL (140-400); RED BLOOD COUNT 2.31 x10^6/uL (4.30-5.70); WHITE BLOOD COUNT 15.1 x10^3/uL (4.0-11.0)
--- NOTE | 2017-02-27 08:19 | PDOC ---
GENERAL General: see dictated H&P. Problems: VITAL SIGNS Vital Signs: Vital Signs Date Time Temp Pulse Resp B/P (MAP) Pulse Ox O2 Delivery O2 Flow Rate FiO2 02/27/17 07:00 97.5 69 18 119/67 (84) 95 Room Air 97.5 I & O I & O Intake and Output 02/27/17 06:59 Intake Total 600 ml Output Total 1450 ml Balance -850 ml Intake Oral 600 ml Output Urine Total 1450 ml ALLERGIES Allergies: Allergies Coded Allergies Type Severity Reaction Last Updated Verified No Known Drug Allergies 02/22/17 No MEDS Medications: Current Medications Medications (Trade) Dose Ordered Sig/Selena Start Time Stop Time Status Last Admin Dose Admin Acetaminophen (Tylenol) 650 mg PRN Q4HRS PRN 02/26/17 10:30 02/27/17 10:29 02/27/17 08:07 650 MG Ondansetron HCl (Zofran) 4 mg PRN Q8HRS PRN 02/26/17 10:30 02/27/17 10:29 Sodium Chloride 1,000 ml @ 80 mls/hr [id number] 02/26/17 10:30 02/27/17 10:29 02/26/17 15:00 80 MLS/HR Sodium Chloride (Normal Saline Flush) 10 ml QSHIFT PRN 02/26/17 09:15 LAB Lab: Laboratory Tests Test 02/26/17 09:40 02/26/17 10:30 02/27/17 06:06 White Blood Count 22.6 x10^3/uL (4.0-11.0) 15.1 x10^3/uL (4.0-11.0) Red Blood Count 1.64 x10^6/uL (4.30-5.70) 2.31 x10^6/uL (4.30-5.70) Hemoglobin 5.8 g/dL (13.0-17.5) 7.4 g/dL (13.0-17.5) Hematocrit 16.1 % (39.0-53.0) 21.3 % (39.0-53.0) Mean Corpuscular Volume 98 fL (79-100) 92 fL (79-100) Mean Corpuscular Hemoglobin 35 pg (25-35) 32 pg (25-35) Mean Corpuscular Hemoglobin Concent 36 g/dL (31-37) 35 g/dL (31-37) Red Cell Distribution Width 21.9 % (11.5-14.5) 20.0 % (11.5-14.5) Platelet Count 136 x10^3/uL (140-400) 120 x10^3/uL (140-400) Neutrophils (%) (Auto) 94 % (31-73) 90 % (31-73) Lymphocytes (%) (Auto) 2 % (24-48) 5 % (24-48) Monocytes (%) (Auto) 4 % (0-9) 4 % (0-9) Eosinophils (%) (Auto) 0 % (0-3) 0 % (0-3) Basophils (%) (Auto) 0 % (0-3) 0 % (0-3) Neutrophils # (Auto) 21.2 x10^3uL (1.8-7.7) 13.6 x10^3uL (1.8-7.7) Lymphocytes # (Auto) 0.5 x10^3/uL (1.0-4.8) 0.8 x10^3/uL (1.0-4.8) Monocytes # (Auto) 0.8 x10^3/uL (0.0-1.1) 0.7 x10^3/uL (0.0-1.1) Eosinophils # (Auto) 0.0 x10^3/uL (0.0-0.7) 0.0 x10^3/uL (0.0-0.7) Basophils # (Auto) 0.0 x10^3/uL (0.0-0.2) 0.0 x10^3/uL (0.0-0.2) Segmented Neutrophils % 94 % (35-66) Band Neutrophils % 1 % (0-9) Lymphocytes % 4 % (24-48) Monocytes % 1 % (0-10) Hypersegmented Neutrophils Present Platelet Estimate Adequate (ADEQUATE) Anisocytosis Mod Macrocytosis Slight Sodium Level 136 mmol/L (136-145) Potassium Level 5.7 mmol/L (3.5-5.1) Chloride Level 103 mmol/L (98-107) Carbon Dioxide Level 25 mmol/L (21-32) Anion Gap 8 (6-14) Blood Urea Nitrogen 68 mg/dL (8-26) Creatinine 1.6 mg/dL (0.7-1.3) Estimated GFR (Cockcroft-Gault) 41.5 Glucose Level 119 mg/dL (70-99) Calcium Level 9.1 mg/dL (8.5-10.1) Magnesium Level 2.0 mg/dL (1.8-2.4) Total Bilirubin 0.3 mg/dL (0.2-1.0) Direct Bilirubin 0.1 mg/dL (0.0-0.2) Aspartate Amino Transf (AST/SGOT) 15 U/L (15-37) Alanine Aminotransferase (ALT/SGPT) 28 U/L (16-63) Alkaline Phosphatase 88 U/L (46-116) Troponin I Quantitative 0.075 ng/mL (0.000-0.055) DW-Kho-O-Type Natriuretic Peptide 5792 pg/mL (0-449) Total Protein 5.3 g/dL (6.4-8.2) Albumin 2.9 g/dL (3.4-5.0) Thyroid Stimulating Hormone (TSH) 0.825 uIU/mL (0.358-3.74) Urine Collection Type Unknown Urine Color Yellow Urine Clarity Clear Urine pH 5.5 Urine Specific [place] 1.010 Urine Protein Negative mg/dL (NEG-TRACE) Urine Glucose (UA) Negative mg/dL (NEG) Urine Ketones (Stick) Negative mg/dL (NEG) Urine Blood Negative (NEG) Urine Nitrite Positive (NEG) Urine Bilirubin Negative (NEG) Urine Urobilinogen Dipstick 0.2 mg/dL (0.2 mg/dL) Urine Leukocyte Esterase Moderate (NEG) Urine RBC 0 /HPF (0-2) Urine WBC 20-40 /HPF (0-4) Urine Squamous Epithelial Cells Few /LPF Urine Bacteria Many /HPF (0-FEW) Urine Hyaline Casts Occasional /HPF AYALA LYMAN MD Feb 27, 2017 08:19
[2017-02-27] MEDS ORDERED: HYDROcodone/APAP 5/325MG 1 TAB TABLET PO PRN (08:30)
[2017-02-27] MEDS ORDERED: SPIRONOLACTONE 25 MG TABLET PO SCH (09:00)
[2017-02-27] MEDS ORDERED: MULTIVITAMIN with MINERAL TABLET. PO SCH (09:00)
[2017-02-27] MEDS ORDERED: FENOFIBRATE,MICRONIZED 134 MG CAPSULE PO SCH (09:00)
[2017-02-27] MEDS ORDERED: LOSARTAN POTASSIUM 50 MG TABLET. PO SCH (09:00)
[2017-02-27] MEDS ORDERED: FUROSEMIDE 20 MG TABLET PO SCH (09:00)
[2017-02-27] MEDS ORDERED: CARVEDILOL 12.5 MG TABLET. PO SCH (09:00)
[2017-02-27] MEDS: POTASSIUM CHLORIDE 20 MEQ TABLET.ER. PO SCH ×2 (09:15→09:17)
[2017-02-27] MEDS: AMIODARONE HCL 200 MG TABLET. PO SCH (09:16)
[2017-02-27] MEDS: HYDROcodone/APAP 5/325MG 1 TAB TABLET PO PRN (09:16)
[2017-02-27] MEDS: IV NORMAL SALINE 1000ML BAG 1,000 ML IV SCH (09:21)
[2017-02-27] MEDS ORDERED: IV NORMAL SALINE 500ML BAG 500 ML IV ONE (14:00)
--- NOTE | 2017-02-27 15:48 | RAD ---
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 Comparison: 12/15/2016 Technique: Grayscale, color Doppler 2-D, spectral waveform analysis of the left lower extremity venous system performed Findings The visualized common femoral vein, superficial femoral vein, popliteal vein demonstrate normal compression and augmentation of flow. The visualized calf veins are patent Impression: No evidence of deep venous thrombosis left lower extremity venous system. The previously visualized thrombosis in the left common femoral vein is not identified.
[2017-02-27] MEDS ORDERED: SIMVASTATIN PO SCH (21:00)
[2017-02-27] MEDS ORDERED: TAMSULOSIN 0.4 MG CAP.ER.24H. PO SCH (21:00)
[2017-02-27] MEDS ORDERED: EZETIMIBE PO SCH (21:00)
[2017-02-27] MEDS ORDERED: SERTRALINE 50 MG TABLET. PO SCH (21:00)
[2017-02-27] MEDS ORDERED: SIMVASTATIN 40 MG TABLET. PO SCH (21:00)
[2017-02-27] MEDS ORDERED: EZETIMIBE 10 MG TABLET. PO SCH (21:00)
[2017-02-27 21:07] LABS: BASO % 0 % (0-3); EOS % 0 % (0-3); HEMOGLOBIN 8.6 g/dL (13.0-17.5); LYMPH # 0.6 x10^3/uL (1.0-4.8); LYMPH % 6 % (24-48); MEAN CORPUSCULAR HEMOGLOBIN 33 pg (25-35); MEAN CORPUSCULAR HGB CONC 34 g/dL (31-37); MEAN CORPUSCULAR VOLUME 95 fL (79-100); MONO % 6 % (0-9); NEUT % 87 % (31-73); PLATELET COUNT 100 x10^3/uL (140-400); RED BLOOD COUNT 2.65 x10^6/uL (4.30-5.70); RED CELL DISTRIBUTION WIDTH 18.1 % (11.5-14.5); WHITE BLOOD COUNT 8.7 x10^3/uL (4.0-11.0)
[2017-02-27 21:42] LABS: PLT ESTIMATE DECREASED (ADEQUATE)
[2017-02-27 21:43] LABS: ANISOCYTOSIS SLIGHT; TOXIC GRANULATION SLIGHT
[2017-02-27 21:44] LABS: POLYCHROMASIA SLIGHT
--- NOTE | 2017-02-28 01:45 | CONS ---
DATE OF CONSULTATION: 02/27/2017 REQUESTING PHYSICIAN: Dr. Abisai Kowalski REASON FOR CONSULTATION: Non-Hodgkin's lymphoma and anemia. HISTORY OF PRESENT ILLNESS: The patient is an 81-year-old gentleman who was diagnosed with diffuse large B cell non-Hodgkin's lymphoma by a CT-guided biopsy of a large abdominal mass on 10/13/2016. He had evidence of a large abdominal mass and he was given chemotherapy with CHOP-rituximab. Chemotherapy was initiated on 10/19/2016. A followup CAT scan on 12/29/2016 revealed improvement in the abdominal mass. He received cycle #7 of chemotherapy on 02/21/2017 without Adriamycin. Adriamycin was stopped after the fourth cycle of chemotherapy because of drop in the ejection fraction. CBC performed on 02/26/2017 revealed hemoglobin of 5.8 and hence he was sent to the Emergency Room. The patient was noted to have ecchymosis in the right gluteal region and an underlying hematoma. A CT scan was done, which also revealed changes in the right gluteal region, but there was no intraabdominal bleed. He was given packed red blood cells transfusion, hemoglobin improved to 7.2 on 02/27/2017 and he is going to get 2 more units on 02/27/2017. He has been on Lovenox for management of DVT. He was diagnosed with left lower extremity extensive DVT on 11/02/2016. Initially started on Pradaxa and then switched to Lovenox. He denies any other sources of bleeding. PAST MEDICAL HISTORY: Melanoma, chronic kidney disease, abdominal aortic aneurysm, atrial fibrillation, benign prostatic hypertrophy, atherosclerotic heart disease, depression. SOCIAL HISTORY: Nonsmoker, no alcohol abuse. FAMILY HISTORY: Negative for any primary hematologic disorders. REVIEW OF SYSTEMS: A 12-point review of system was performed. Pertinent positives are mentioned in the history of present illness. Rest of the system review is negative. PHYSICAL EXAMINATION: GENERAL APPEARANCE: The patient is an 81-year-old gentleman who is in no acute cardiorespiratory distress. VITAL SIGNS: Reviewed. He is afebrile. HEENT: Atraumatic, normocephalic. Eyes: No icterus. NECK: Supple. CHEST: Bilaterally symmetrical. No crepitations or rhonchi heard. HEART: S1, S2 normal. ABDOMEN: Soft, nontender. CENTRAL NERVOUS SYSTEM: No focal deficits. LYMPHATICS: No lymphadenopathy. SKIN: He has evidence of ecchymosis in the right gluteal region, which is extensive and extending into the thigh. LABORATORY DATA: CBC performed on 02/26/2017 at revealed WBC 20.7, hemoglobin 5.8, platelet count 144. IMPRESSION AND PLAN: 1. Non-Hodgkin's lymphoma, diffuse large B cell type, presenting as a large abdominal mass. He received 4 cycles of chemotherapy with CHOP and rituximab. He received fifth, sixth and seventh cycle of treatment without Adriamycin because of drop in the ejection fraction. The seventh cycle of treatment was given on 02/21/2017. Plan is to proceed with the eighth cycle of treatment and then obtain a CT scan to evaluate for response. He will follow up with me upon discharge. 2. Anemia secondary to blood loss. He has developed a hematoma in the right gluteal region, probable due to a fall, which he does not recall if he fell. I agreed to monitor hemoglobin and transfuse as needed. Anticoagulation has been stopped. 3. Deep venous thrombosis of the left lower extremity. I obtained a followup venous Doppler on 02/27/2017 that reveals complete resolution of deep venous thrombosis. Hence anticoagulation can be stopped in view of recent bleed. However, I will defer to Dr. Andrew Chung regarding future need of anticoagulation for atrial fibrillation. 4. Chronic kidney disease, stable. 5. History of melanoma. I discussed with the patient and his son-in-law. I also discussed with the registered nurse. JENNIFER QURESHI MD DR: KIM/miranda JOB#: [id number] / [id number] SATHISH
[2017-02-28 03:00] VITALS: BP 124/50
[2017-02-28 07:44] VITALS: BP 121/73
--- NOTE | 2017-02-28 08:16 | PDOC ---
GENERAL General: vss and afebrile. pushing for dc. leg feels better. Hb 8.6 yesterday pm after transfusion and repeat today pending. will have to be safe for home with therapy with bleed in leg prior to dc. also will dose rocephin 1 gm iv for uti with > 100,000 gram negative rods growing without ID to date. will repeat cbc later today in addition prior to considering dc. blood thinners will be on hold at dc with bleed and outpatient decision will have to be made when safe to restart as needs for a-fib but current risks outweigh benefits. Problems: VITAL SIGNS Vital Signs: Vital Signs Date Time Temp Pulse Resp B/P (MAP) Pulse Ox O2 Delivery O2 Flow Rate FiO2 02/28/17 07:44 98.6 75 16 121/73 (89) 92 Room Air 98.6 I & O I & O Intake and Output 02/28/17 07:00 Intake Total 1258 ml Output Total 1675 ml Balance -417 ml Intake Oral 620 ml Blood Product IV Normal Saline Flush 638 ml Output Urine Total 1675 ml # Bowel Movements 1 ALLERGIES Allergies: Allergies Coded Allergies Type Severity Reaction Last Updated Verified No Known Drug Allergies 02/22/17 No MEDS Medications: Current Medications Medications (Trade) Dose Ordered Sig/Selena Start Time Stop Time Status Last Admin Dose Admin Acetaminophen (Tylenol) 650 mg PRN Q4HRS PRN 02/26/17 10:30 02/27/17 10:29 DC 02/27/17 08:07 650 MG Acetaminophen/ Hydrocodone Bitart (Lortab 5/325) 2 tab PRN Q4HRS PRN 02/27/17 08:30 02/27/17 09:16 2 TAB Amiodarone HCl (Cordarone) 200 mg DAILY 02/27/17 09:00 02/27/17 09:16 200 MG Carvedilol (Coreg) 25 mg BIDWMEALS 02/27/17 09:00 02/27/17 11:32 DC 02/27/17 09:15 25 MG Ceftriaxone Sodium 1 gm/ Sodium Chloride 50 ml @ 100 mls/hr Q24H 02/28/17 08:15 UNV EZETIMIBE (Zetia) 10 mg QHS 02/27/17 21:00 02/27/17 20:53 10 MG Fenofibrate (Lofibra) 134 mg DAILY 02/27/17 09:00 02/27/17 11:32 DC 02/27/17 09:14 134 MG Furosemide (Lasix) 20 mg QODAY 02/27/17 09:00 02/27/17 09:15 20 MG Losartan Potassium (Cozaar) 100 mg DAILY 02/27/17 09:00 02/27/17 11:32 DC 02/27/17 09:14 100 MG Multivitamins (Thera M Plus) 1 tab DAILY 02/27/17 09:00 02/27/17 11:32 DC 02/27/17 09:15 1 TAB Non-Formulary Medication 1 each HS 02/27/17 21:00 UNV Ondansetron HCl (Zofran) 4 mg PRN Q8HRS PRN 02/26/17 10:30 02/27/17 10:29 DC Potassium Chloride (Klor-Con) 20 meq [id number] 02/27/17 09:00 Sertraline HCl (Zoloft) 50 mg HS 02/27/17 21:00 02/27/17 20:53 50 MG Simvastatin (Zocor) 80 mg QHS 02/27/17 21:00 02/27/17 21:00 DC Sodium Chloride 500 ml @ 500 mls/hr 1X ONCE 02/27/17 14:00 02/27/17 14:59 DC 02/27/17 14:00 500 MLS/HR Sodium Chloride (Normal Saline Flush) 10 ml QSHIFT PRN 02/26/17 09:15 Spironolactone (Aldactone) 25 mg DAILY 02/27/17 09:00 02/27/17 11:32 DC 02/27/17 09:14 25 MG Tamsulosin HCl (Flomax) 0.4 mg HS 02/27/17 21:00 02/27/17 20:53 0.4 MG LAB Lab: Laboratory Tests Test 02/27/17 21:00 White Blood Count 8.7 x10^3/uL (4.0-11.0) Red Blood Count 2.65 x10^6/uL (4.30-5.70) Hemoglobin 8.6 g/dL (13.0-17.5) Hematocrit 25.0 % (39.0-53.0) Mean Corpuscular Volume 95 fL (79-100) Mean Corpuscular Hemoglobin 33 pg (25-35) Mean Corpuscular Hemoglobin Concent 34 g/dL (31-37) Red Cell Distribution Width 18.1 % (11.5-14.5) Platelet Count 100 x10^3/uL (140-400) Neutrophils (%) (Auto) 87 % (31-73) Lymphocytes (%) (Auto) 6 % (24-48) Monocytes (%) (Auto) 6 % (0-9) Eosinophils (%) (Auto) 0 % (0-3) Basophils (%) (Auto) 0 % (0-3) Neutrophils # (Auto) 7.5 x10^3uL (1.8-7.7) Lymphocytes # (Auto) 0.6 x10^3/uL (1.0-4.8) Monocytes # (Auto) 0.5 x10^3/uL (0.0-1.1) Eosinophils # (Auto) 0.0 x10^3/uL (0.0-0.7) Basophils # (Auto) 0.0 x10^3/uL (0.0-0.2) Segmented Neutrophils % 77 % (35-66) Band Neutrophils % 8 % (0-9) Lymphocytes % 8 % (24-48) Monocytes % 7 % (0-10) Toxic Granulation Slight Dohle Bodies Few Platelet Estimate Decreased (ADEQUATE) Polychromasia Slight Anisocytosis Slight AYALA LYMAN MD Feb 28, 2017 08:16
[2017-02-28] MEDS: AMIODARONE HCL 200 MG TABLET. PO SCH (08:35)
[2017-02-28] MEDS: HYDROcodone/APAP 5/325MG 1 TAB TABLET PO PRN (08:35)
[2017-02-28] MEDS: ALTEPLASE 2 MG VIAL INT CAT ONE ×2 (10:00→11:24)
[2017-02-28 10:23] LABS: HEMATOCRIT 27.3 % (39.0-53.0); HEMOGLOBIN 9.6 g/dL (13.0-17.5); RED BLOOD COUNT 2.95 x10^6/uL (4.30-5.70); RED CELL DISTRIBUTION WIDTH 17.4 % (11.5-14.5); WHITE BLOOD COUNT 7.9 x10^3/uL (4.0-11.0)
--- NOTE | 2017-02-28 10:47 | PDOC ---
Subjective: Subjective: Onc f/u- Hematoma, NHL Back pain improved Very eager to go home Does not want placement, really desires to be at home and says he can function well there, seems very stressed about this Objective: Vital Signs: Vital Signs Date Time Temp Pulse Resp B/P (MAP) Pulse Ox O2 Delivery O2 Flow Rate FiO2 02/28/17 08:35 18 92 Room Air 02/28/17 08:35 75 121/73 02/28/17 07:44 98.6 98.6 Physical Exam: Extremities: No edema General: Alert, Oriented X3, Cooperative, No acute distress Lungs: Other (no respiratory distress) Psych/Mental Status: Mental status NL, Mood NL Skin: Other (large bruise on low back, no new areas of bruising) Labs/Imaging: Hgb improved to 9.6 Assessment/Plan A/P: 1. DLBCL with large abdominal mass s/p RCHOP x 4, then RCVP x 3 due to decreased EF, last on 02/21/17. Has f/u 03/[address] Ross. 2. Anemia secondary to blood loss, hematoma following fall on anticoagulation. Hgb stable today (9.6) after 5 units PRBC. 3. H/O DVT LLE, a fib. Anticoagulation currently on hold; Dr. Chung will decide as outpt onlongterm plans. 4. H/o falls. PT cannot recall details. Very concerned about seeing PT today and possibly being told he shouldn't return home. Defer to Dr. Chung. Ok to dc from heme standpoint at any point. ADILENE LOPEZ DO Feb 28, 2017 10:47
[2017-02-28 11:00] VITALS: BP 117/54
[2017-02-28 14:48] VITALS: BP 118/74
[2017-02-28 15:07] LABS: BASO % 0 % (0-3); EOS % 0 % (0-3); HEMATOCRIT 27.9 % (39.0-53.0); HEMOGLOBIN 9.5 g/dL (13.0-17.5); LYMPH # 0.6 x10^3/uL (1.0-4.8); LYMPH % 8 % (24-48); MEAN CORPUSCULAR HEMOGLOBIN 33 pg (25-35); MEAN CORPUSCULAR HGB CONC 34 g/dL (31-37); MEAN CORPUSCULAR VOLUME 96 fL (79-100); MONO % 9 % (0-9); NEUT % 83 % (31-73); PLATELET COUNT 108 x10^3/uL (140-400); RED BLOOD COUNT 2.92 x10^6/uL (4.30-5.70); RED CELL DISTRIBUTION WIDTH 18.1 % (11.5-14.5); WHITE BLOOD COUNT 8.5 x10^3/uL (4.0-11.0)
--- NOTE | 2017-02-28 22:07 | HP ---
ADMIT DATE: 02/26/2017 CHIEF COMPLAINT AND HISTORY OF PRESENT ILLNESS: This is an 81-year-old white male who is well known to me from followup in the office. The patient presented to the Emergency Room on the day of admission with increasing right hip area pain over several days prior to admission despite no known injury. He is currently undergoing chemotherapy for lymphoma. He was found to have a huge hematoma and was admitted with profound anemia in addition. He has also felt lightheaded and dizzy. He had had a transfusion a week prior with Oncology, felt due to his ongoing chemotherapy and bone marrow suppression. He denies any other source of blood loss associated with, any other area that he might have lost blood. Hemoglobin was 5.8, platelet count was 136,000, white count was 22,000 on admission. PAST MEDICAL HISTORY: Remarkable for hypertension, atherosclerotic heart disease, atrial fibrillation, lymphoma, he has had a prior knee replacement, he has had hematuria with voiding earlier on in his lymphoma treatment related to a catheter. He has a history of DVT and has been on anticoagulation since the diagnosis of his lymphoma. MEDICATIONS: Brought with the patient, listed on the computer and have been addressed. ALLERGIES: No known drug allergies. SOCIAL HISTORY: He is , nonsmoker, nondrinker. Does not use drugs. Has a very supportive family. FAMILY HISTORY: Noncontributory. REVIEW OF SYSTEMS: As mentioned above. PHYSICAL EXAMINATION: GENERAL: He is a well-developed, well-nourished, pleasant white male who is uncomfortable, particularly with palpation in the right buttocks, hip area. EXTREMITIES: Without cyanosis, clubbing. Significant edema. There is some swelling in the right hip area. NEUROLOGIC: Intact. HEAD, EYES, EARS, NOSE AND THROAT: Unremarkable. NECK: Supple without adenopathy or thyromegaly. CHEST: Clear to auscultation and percussion. HEART: Irregular with rate in the 70s. ABDOMEN: Soft, nontender, without hepatosplenomegaly or masses. IMPRESSION: Anemia related to right gluteal hematoma confirmed by CT. The patient on Lovenox for deep venous thrombosis and undergoing chemotherapy as noted above. PLAN: The patient is admitted. He will be typed and crossed, transfused. Serial CBCs will be followed. Hematology/Oncology will be asked to see in consultation. The patient will be monitored, managed and treated appropriately. AYALA LYMAN MD DR: Shantel JOB#: [id number] / [id number]
--- NOTE | 2017-03-01 06:11 | DS ---
DATE OF DISCHARGE: 02/28/2017 PRIMARY DIAGNOSES: Right gluteal hematoma with profound anemia with hemoglobin of 5.8 on admission. ADDITIONAL DIAGNOSES: 1. Urinary tract infection with unidentified organism, although gram-negative vicente by the time of discharge. 2. Lymphoma. 3. Leukocytosis. 4. History of deep venous thrombosis with anticoagulation therapy with Lovenox on admission, discontinued during the stay and no evidence of deep venous thrombosis on venous Doppler of the extremities during the stay. CHIEF COMPLAINT AND HISTORY OF PRESENT ILLNESS: This is an 81-year-old white male admitted through the Emergency Room with weakness, dizziness, and right hip pain, found to be profoundly anemic with hemoglobin of 5.8 and found to have gluteal hematoma on exam, I confirmed by CT scanning. SUMMARY OF STAY: The patient was admitted. He was typed and crossed and transfused a total of 4 units of packed red blood cells during the stay with hemoglobin coming up to the 9.5 range by the time of discharge. It was stable over the last 18 hours of this admission with no evidence of any further bleeding and actually felt ____ was feeling somewhat better. He was evaluated by therapy and felt he was safe to go home as far as ambulation ____ which he was pressuring for. He was found to have a urinary tract infection with gram-negative rods greater than 100,000. He was given a dose of IV Rocephin prior to discharge and will be calling our office daily for followup on the culture. After discharge, we will ____ in the office for further evaluation. In addition, he otherwise was stable throughout this stay. DISPOSITION: The patient is discharged to home. He is discharged on regular diet, activity as tolerated, office on Sunday. He is to resume his regular home meds except discontinue Lovenox. At this point in time, he will at some point need anticoagulation for his atrial fibrillation, but ____. AYALA LYMAN MD DR: GEO/miranda JOB#: [id number] / [id number]
== END 2017-02-28 18:17 | disposition home or self-care (01) | DRG 604 ==
LOC: ER 08:56 → 6 SOUTH 10:08
PROVIDERS: ADMIT Family Medicine; ATTEND Family Medicine
PROC: 30233N1 Transfusion of Nonautologous Red Blood Cells into Peripheral Vein, Percutaneous Approach (ICD-10-PCS; principal; 2017-02-26)
DX: S30.0XXA Contusion of lower back and pelvis, initial encounter (principal); D61.810 Antineoplastic chemotherapy induced pancytopenia; C83.33 Diffuse large B-cell lymphoma, intra-abdominal lymph nodes; N39.0 Urinary tract infection, site not specified; D62 Acute posthemorrhagic anemia; I25.10 Atherosclerotic heart disease of native coronary artery without angina pectoris; I48.91 Unspecified atrial fibrillation; N18.9 Chronic kidney disease, unspecified; F32.9 Major depressive disorder, single episode, unspecified; Z96.652 Presence of left artificial knee joint; M54.9 Dorsalgia, unspecified; I12.9 Hypertensive chronic kidney disease with stage 1 through stage 4 chronic kidney disease, or unspecified chronic kidney disease; T45.1X5A Adverse effect of antineoplastic and immunosuppressive drugs, initial encounter; W19.XXXA Unspecified fall, initial encounter; N40.0 Benign prostatic hyperplasia without lower urinary tract symptoms; Z85.820 Personal history of malignant melanoma of skin; Z91.81 History of falling; Z86.718 Personal history of other venous thrombosis and embolism; Y93.89 Activity, other specified; Y92.89 Other specified places as the place of occurrence of the external cause; Y99.8 Other external cause status
CPT/HCPCS: 36415; 70450; 71010; 74176; 80048; 80076; 81001; 83735; 83880; 84443; 84484; 85007; 85027; 86850; 86900; 86901; 86920; 87086; 87186; 93005; 93971; J0696; J2997; J7030; J7040; P9016; 99285-25

== ENCOUNTER → 2017-04-27 | Outpatient (CLI) | payer MEDICARE, BC ==
[~2017-04-27] MED LIST changes: +AMIO200T2 PO; +FURO20TA3 PO; +IOHEXOL 240 MG/ML 50ML VIAL. PO ONE
--- NOTE | 2017-04-27 11:46 | RAD ---
CT chest/abdomen/pelvis without contrast 04/27/2017 at 1000 hours Indication: B-cell lymphoma Comparison: CT chest, abdomen and pelvis 12/28/2016 Technique: Multiple axial CT images of the chest, abdomen and pelvis were obtained without intravenous contrast. Coronal and sagittal reformats are provided. Findings: Chest: Thyroid gland is normal in appearance. Visualized portions of the neck base are normal. There are no pathologically enlarged lymph nodes in the axilla, mediastinum and hilar regions. Heart size is within normal limits. Three-vessel coronary artery calcification is noted. Thoracic aorta is normal in course and caliber with scattered atherosclerotic calcification. A left chest wall infusion port catheter is identified with the distal tip terminating at the cavoatrial junction. Mild interstitial thickening is noted at the lung bases. No suspicious pulmonary nodules are identified. No pulmonary infiltrates. 2 mm pulmonary nodule is identified in the left upper lobe medially (series 2, image 27), stable. There is a trace left pleural effusion versus pleural thickening. No pulmonary vascular congestion or pneumothorax. Abdomen/Pelvis: Evaluation of the solid abdominal viscera is limited by lack of intravenous contrast. No suspicious hepatic masses are identified. Spleen is nonenlarged. Adrenal glands and pancreas are within normal limits. Gallbladder is present. A calcified gallstone is noted. No pericholecystic inflammatory changes are present. There is a 15 mm hypodense lesion exophytic from the inferior pole the left kidney suggestive of a renal cyst. No suspicious renal masses are identified. No renal calculi. No hydronephrosis. Stable appearance of an infrarenal abdominal aortic aneurysm measuring 4.1 x 4.0 cm, stable when measured in similar dimensions. There is periaortic soft tissue which surrounds the abdominal aorta without narrowing it. Soft tissue extends along the bilateral common iliac vessels as well as left external and internal iliac vessels. 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 There is no free fluid within the abdomen and pelvis. There are no dilated loops of small or large bowel. No evidence for bowel obstruction. No pericolonic inflammatory changes. There is vertebral plana at L2, stable. Similar patchy areas of sclerosis and distortion of the sacrum and right iliac bone. Impression: 1. There is similar appearance of abnormal soft tissue encasing the distal abdominal aorta and iliac arteries, left greater than right. No significant interval change since the most recent prior examination from 12/28/2016. Findings are in keeping with history of lymphoma. 2. Vertebral plana at L2 is stable. Similar sclerotic densities involving the sacrum and right iliac bone. 3. Infrarenal abdominal aortic aneurysm measuring 4.1 x 4.0 cm is stable. 4. No evidence for joseph disease involving the chest. 5. Cholelithiasis. PQRS Compliance Statement: One or more of the following individualized dose reduction techniques were utilized for this examination: 1. Automated exposure control 2. Adjustment of the mA and/or kV according to patient size 3. Use of iterative reconstruction technique
== END | disposition home or self-care (01) ==
LOC: CT 08:55
PROVIDERS: ATTEND Internal Medicine Hematology & Oncology
DX: C83.33 Diffuse large B-cell lymphoma, intra-abdominal lymph nodes (principal); I71.4 Abdominal aortic aneurysm, without rupture; K80.20 Calculus of gallbladder without cholecystitis without obstruction
CPT/HCPCS: 71250; 74176; Q9966

== ENCOUNTER → 2017-08-08 | Outpatient (CLI) | payer MEDICARE, BC ==
--- NOTE | 2017-08-08 11:03 | RAD ---
CT chest, abdomen and pelvis without IV contrast Indication: Lymphoma Technique: CT chest, abdomen and pelvis without IV contrast with multiplanar reformats. Contrast was given. Comparison: Previous study from 04/27/2017 Findings: Limited study due to lack of IV contrast. CT chest: Left chest wall Chemo-Port is noted with is tip at the cavoatrial junction. Neck base is clear. No axillary or hilar adenopathy. Previously seen soft tissue density in the mediastinum has significantly decreased in size measuring 1.0 x 1.0 cm (series 2 image 24), previously 3.2 x 1.7 cm. Heart is normal in size. No pericardial or pleural effusion. Coronary artery disease as suggested by carotid artery calcifications. Stable right lung base subpleural scarring noted. No focal consolidation or discrete pulmonary nodules. Stable elevation of the right hemidiaphragm noted. Stable T6 vertebral body compression deformity noted with no retropulsion into spinal canal. No new compression deformities. Multilevel degenerative changes in the thoracic spine. Stable sclerotic and expansile appearance of the proximal left clavicle. Stable healed fracture of the left anterior third rib. CT abdomen and pelvis: Liver is normal in morphology. Spleen is top normal in size measuring 13 cm. Gallstone noted. No pericholecystic fluid or gallbladder wall thickening. Pancreas within normal limits. Adrenal glands show no nodularity. No nephrolithiasis or hydronephrosis. No discrete retroperitoneal or pelvic adenopathy. Redemonstrated is an ill-defined retroperitoneal soft tissue encasing infrarenal aorta and extending along the left iliac vasculature. Approximately this measures 4. 6 x 2.4 cm (series 4 image 70), previously 4.8 x 2.8 cm. There is encasement of the infrarenal IVC is well. No omental, peritoneal or mesenteric masses. There is aneurysmal dilation of the infrarenal aorta measuring 4.4 x 3.9 cm (series 4 image 54), previously 4.3 x 4.0 cm. There is discontinuity in the pedicle calcification of this aneurysmal sac. Diffuse atherosclerotic disease of the abdominal aorta and its major branches noted. No bowel obstruction. Normal appendix. There is circumferential bladder wall thickening. The prostate is enlarged measuring 6.1 x 5.3 x 7.3 cm. Seminal vesicles show no mass lesion. No free pelvic fluid. No inguinal adenopathy. Small bilateral fat-containing inguinal hernias. Stable compression deformity of the L2 vertebral body noted with mild retropulsion of the posterior margin in the spinal canal. Stable patchy sclerosis and lucencies are still seen in the right iliac bone and sacrum. Impression: 1. Interval decrease in previously seen mediastinal soft tissue. 2. Relatively stable infrarenal periaortic soft tissue extending to the left iliac vasculature. 3. Stable infrarenal abdominal aneurysm. Discontinuity of the peripheral calcifications of the aneurysm sac places patient at high risk of aneurysmal rupture. 4. Enlarged prostate. Clinically correlate with PSA and physical exam. Circumferential bladder wall thickening may be secondary to chronic outlet obstruction or cystitis. 5. Stable compression deformities of T6 and L2 vertebral bodies. There is mild stable retropulsion of the posterior margin of the L2 vertebral body in the spinal canal. 6. Stable lytic and sclerotic appearance of the right iliac bone and sacrum. Findings may be secondary to Paget's disease or lymphomatous involvement of the bones. 7. Partially visualized sclerotic appearance of the proximal left clavicle may be secondary to lymphomatous involvement of the bone. This is stable from previous study from 10/16/2016. Correlate with bone marrow biopsy from 10/18/2016. 8. Cholelithiasis without acute cholecystitis. PQRS Compliance Statement: One or more of the following individualized dose reduction techniques were utilized for this examination: 1. Automated exposure control 2. Adjustment of the mA and/or kV according to patient size 3. Use of iterative reconstruction technique
== END | disposition home or self-care (01) ==
LOC: CT 08:11
PROVIDERS: ATTEND Internal Medicine Hematology & Oncology
DX: C83.33 Diffuse large B-cell lymphoma, intra-abdominal lymph nodes (principal); C85.90 Non-Hodgkin lymphoma, unspecified, unspecified site; I71.4 Abdominal aortic aneurysm, without rupture; N40.0 Benign prostatic hyperplasia without lower urinary tract symptoms; K80.20 Calculus of gallbladder without cholecystitis without obstruction
CPT/HCPCS: 71250; 74176; Q9966

== ENCOUNTER 2017-08-15 09:56 | Outpatient (CLI) | payer MEDICARE, BC ==
[~2017-08-15] VITALS: Ht 182.9 cm; Wt 81.6 kg
[~2017-08-15 09:56] MED LIST changes: +HEPARIN for ARTERIAL LINE 0 ML ONE; -IOHEXOL 240 MG/ML 50ML VIAL. PO ONE; +LIDOCAINE 1%/EPI 1:100,000 20 ML VIAL. ONE
[2017-08-15 10:23] LABS: BASO # 0.1 x10^3/uL (0.0-0.2); BASO % 1 % (0-3); EOS % 2 % (0-3); HEMOGLOBIN 12.9 g/dL (13.0-17.5); LYMPH # 0.9 x10^3/uL (1.0-4.8); LYMPH % 16 % (24-48); MEAN CORPUSCULAR HEMOGLOBIN 33 pg (25-35); MEAN CORPUSCULAR HGB CONC 33 g/dL (31-37); MEAN CORPUSCULAR VOLUME 98 fL (79-100); MONO % 12 % (0-9); NEUT % 69 % (31-73); PLATELET COUNT 133 x10^3/uL (140-400); RED BLOOD COUNT 3.97 x10^6/uL (4.30-5.70); RED CELL DISTRIBUTION WIDTH 15.3 % (11.5-14.5); WHITE BLOOD COUNT 5.6 x10^3/uL (4.0-11.0)
[2017-08-15 10:32] LABS: INR 1.6 (0.8-1.1); PROTHROMBIN TIME PATIENT 17.8 SEC (11.7-14.0)
[2017-08-15 10:41] VITALS: BP 132/81
[2017-08-15] MEDS ORDERED: SPIR25TA3 PO (10:44)
[2017-08-15] MEDS ORDERED: METO2.5T PO (10:44)
[2017-08-15] MEDS ORDERED: FURO40TA4 PO ×2 (10:44→10:48)
[2017-08-15] MEDS ORDERED: POTA20TA82 PO (10:44)
[2017-08-15] MEDS ORDERED: DABI150C PO (10:44)
[2017-08-15] MEDS ORDERED: fentaNYL PF VIAL 100 MCG/2 ML VIAL ONE (11:20)
[2017-08-15] MEDS ORDERED: MIDAZOLAM HCL/PF 2 MG/2 ML VIAL. ONE (11:20)
[2017-08-15] MEDS ORDERED: MIDAZOLAM HCL/PF 2 MG/2 ML VIAL. IV ONE (11:45)
[2017-08-15] MEDS ORDERED: LIDOCAINE 1%/EPI 1:100,000 20 ML VIAL. IJ ONE (11:45)
[2017-08-15] MEDS ORDERED: fentaNYL PF VIAL 100 MCG/2 ML VIAL IV ONE (11:45)
[2017-08-15 11:59] VITALS: BP 101/60
[2017-08-15 12:05] VITALS: BP 109/67
[2017-08-15 12:20] VITALS: BP 116/69
[2017-08-15 12:40] VITALS: BP 110/73
[2017-08-15 13:00] VITALS: BP 99/70
--- NOTE | 2017-08-15 13:18 | RAD ---
Fluoroscopically guided removal of left internal jugular port. 08/15/2017 Indication: Patient has completed chemotherapy and no longer requires long-term central venous access. The risks and benefits of the procedure were discussed the patient. Informed consent was obtained. A timeout procedure was performed. Preprocedural antibiotics were administered. The left upper chest was prepped and draped using maximum sterile barrier technique. 1% lidocaine with epinephrine was administered for local anesthesia. A small incision was made overlying the port reservoir. The reservoir and catheter were removed intact. Once hemostasis was achieved the wound was closed in layers using 2-0 Vicryl and 4-0 Vicryl suture. Dermabond was applied to the overlying skin. A sterile dressing was applied. No immediate complications were identified. Fluoroscopy time: 0.1 minutes Exposures: 2 Impression: Successful removal of left internal jugular port
== END 2017-08-15 13:00 | disposition home or self-care (01) ==
LOC: INTRAD 09:56
PROVIDERS: ATTEND Internal Medicine Hematology & Oncology
DX: Z45.2 Encounter for adjustment and management of vascular access device (principal); Z79.01 Long term (current) use of anticoagulants; E78.00 Pure hypercholesterolemia, unspecified; I48.91 Unspecified atrial fibrillation; I10 Essential (primary) hypertension; F32.9 Major depressive disorder, single episode, unspecified; D64.9 Anemia, unspecified; Z96.652 Presence of left artificial knee joint
CPT/HCPCS: 36415; 36590; 77001; 85025; 85610; 99152; 99153; J0690; J2250; J3010; J3490

== ENCOUNTER → 2017-11-09 | Outpatient (CLI) | payer MEDICARE, BC ==
[~2017-11-09] MED LIST changes: -AMIO200T2 PO; -ASPI-630 PO; -CALC600T4 PO; -CARV25TA2 PO; -CHOL500016 PO; +CONTRAST GIVEN MC; -DABI150C PO; -ENOX40DI SQ; -EZET1TAB41 PO; -FENO145T2 PO; -FENO50CA3 PO; -FURO20TA3 PO; -HEPARIN for ARTERIAL LINE 0 ML ONE; -LIDOCAINE 1%/EPI 1:100,000 20 ML VIAL. ONE; -LOSA100T6 PO; -MULT-246 PO; -POTA20TA4 PO; -POTA20TA82 PO; -POTASSIUM CHLO10 MEQ PO; -SERT50TA PO; -SPIR25TA3 PO; -TAMS0.4C2 PO
[2017-11-09] MEDS: IOHEXOL 240 MG/ML 50ML VIAL. PO (09:15)
== END | disposition home or self-care (01) ==
LOC: CT 08:54
DX: C83.33 Diffuse large B-cell lymphoma, intra-abdominal lymph nodes (principal); I71.4 Abdominal aortic aneurysm, without rupture; I70.0 Atherosclerosis of aorta; K57.30 Diverticulosis of large intestine without perforation or abscess without bleeding; K40.20 Bilateral inguinal hernia, without obstruction or gangrene, not specified as recurrent; N40.0 Benign prostatic hyperplasia without lower urinary tract symptoms; K80.20 Calculus of gallbladder without cholecystitis without obstruction; I35.0 Nonrheumatic aortic (valve) stenosis; I25.10 Atherosclerotic heart disease of native coronary artery without angina pectoris; J98.11 Atelectasis
CPT/HCPCS: 71250; 74176

== ENCOUNTER → 2018-11-22 | Outpatient (CLI) | payer MEDICARE, BC ==
[~2018-11-22] MED LIST changes: +AMIO200T4 PO; +ASPI-630 PO; +CALC600T4 PO; +CARV25TA2 PO; +CHOL500016 PO; -CONTRAST GIVEN MC; +CONTRAST GIVEN. MC PRN; +DABI150C PO; +ENOX40DI SQ; +EZET1TAB41 PO; +FENO145T30 PO; +FENO50CA3 PO; +FURO20TA3 PO; +FURO40TA4 PO; +IOHEXOL 240 MG/ML 50ML VIAL. PO ONE; +LOSA100T14 PO; +METO2.5T PO; +MULT-246 PO; +POTA10TA12 PO; +POTA20TA4 PO; +POTA20TA82 PO; +SERT50TA PO; +SPIR25TA5 PO; +TAMS0.4C2 PO
--- NOTE | 2018-11-22 11:41 | RAD ---
CT CHEST ABDOMEN PELVIS WO Indication: DIFFUSE LARGE B CELL LYMPHOMA PO ONLY PRE SENT Exposure: One or more of the following individualized dose reduction techniques were utilized for this examination: 1. Automated exposure control 2. Adjustment of the mA and/or kV according to patient size 3. Use of iterative reconstruction technique. Comparison: May 17, 2018 Technique: No intravenous contrast given. Oral contrast was given. Findings: Evaluation of solid viscera, bowel and vasculature is compromised by the noncontrast technique. Chest: Mild aneurysmal dilatation of the ascending aorta measures 4.5 cm x 4.6 cm compatible, similar as compared with similar previous slice. Atherosclerotic calcifications of the aorta and proximal great vessels. Coronary artery calcifications. Density in both breasts is again seen compatible with gynecomastia, appears slightly greater than on the prior study. Partially visualized thyroid gland is heterogeneous. At least one right thyroid nodule measuring about 11 mm is identified and appears similar. No significant pericardial effusion. No pleural effusion. No significant lymph node enlargement. Medial right middle lobe atelectasis is again identified. Tiny left lung base nodule measuring 2 or 3 mm is unchanged. No dominant mass has developed. Abdomen pelvis: Liver grossly unremarkable. Spleen is mildly enlarged, 13.4 cm roughly similar to previous exam. Pancreas unremarkable. No adrenal mass. Both kidneys demonstrate cortical atrophy/scarring. Mild stranding of the perinephric fat is stable. No hydronephroureter or urolithiasis. The left ureter is indistinguishable from some abnormal soft tissue along its distal course. Left lower pole renal lesion, measures greater than simple fluid, and measures 18 mm appears unchanged since prior study, may represent hemorrhagic cyst. Gallstone is identified. The abdominal aorta is calcified as are the major branches. Infrarenal abdominal aortic aneurysm measures 4.4 x 4.1 cm, unchanged as compared with similar previous slice. The morphology appears similar as the previous exam. Calcification and ectasia of the iliac arteries. No abnormal soft tissue around the distal aorta and proximal iliac vessels and extending to the left pelvis is again identified and appears similar. No new retroperitoneal or mesenteric lymph node enlargement is identified. Small hiatal hernia. No bowel obstruction. No evidence of acute colitis. Mild diverticulosis. The appendix appears normal. No evidence of ascites or pneumoperitoneum. The urinary bladder is without evidence of wall thickening. The prostate gland is enlarged, about 6.3 cm diameter, unchanged. Bones: Moderate compression fracture of the T6 vertebral body is stable since prior study. Moderate to severe compression fracture of L2 vertebral body is stable since previous exam as is posterior retropulsion into the canal and severe stenosis. There is sclerosis and cortical thickening of the partially visualized left clavicle, unchanged. Sclerotic changes of the sacrum and right hemipelvis are again identified. IMPRESSION: 1. Mild aneurysmal dilatation of the ascending aorta is stable. 2. Right middle lobe atelectasis or collapse appears similar. 3. Bilateral gynecomastia has slightly progressed. 4. Infrarenal abdominal aortic aneurysm is stable. 5. Cholelithiasis. 6. Prostatomegaly is again seen. 7. Chronic osseous changes in the chest, abdomen and pelvis are unchanged. 8. Severe spinal stenosis at L2 due to compression fracture with posterior retropulsion appears stable. 9. Hyperdense lesion at the lower pole the left kidney may represent a hemorrhagic cyst, but other etiology not excludable. However, this is stable since the prior examination. Ultrasound could further evaluate as indicated. 10. Soft tissue abnormality in the retroperitoneum, greater on the left, is again identified and is unchanged. The left ureter again extends into this abnormal tissue without evidence of proximal hydronephrosis. 11. Mild splenomegaly, unchanged. Electronically signed by: Tanmay Felder MD (11/22/2018 11:38 AM) [id number]
== END | disposition home or self-care (01) ==
LOC: CT 08:43
PROVIDERS: ATTEND Internal Medicine Hematology & Oncology
DX: C83.33 Diffuse large B-cell lymphoma, intra-abdominal lymph nodes (principal); M84.48XD Pathological fracture, other site, subsequent encounter for fracture with routine healing; I71.4 Abdominal aortic aneurysm, without rupture; I71.2 Thoracic aortic aneurysm, without rupture; R16.1 Splenomegaly, not elsewhere classified; K80.20 Calculus of gallbladder without cholecystitis without obstruction; N40.0 Benign prostatic hyperplasia without lower urinary tract symptoms; M48.061 Spinal stenosis, lumbar region without neurogenic claudication; I70.0 Atherosclerosis of aorta; E04.1 Nontoxic single thyroid nodule; N62 Hypertrophy of breast; N28.89 Other specified disorders of kidney and ureter; I25.10 Atherosclerotic heart disease of native coronary artery without angina pectoris
CPT/HCPCS: 71250; 74176; Q9966

== ENCOUNTER → 2019-05-16 | Outpatient (CLI) | payer MEDICARE, BC ==
--- NOTE | 2019-05-16 11:08 | RAD ---
EXAM: CT Chest, Abdomen and Pelvis without IV contrast CLINICAL HISTORY: Lymphoma COMPARISON: 11/22/2018, 05/17/2019 TECHNIQUE: Helical CT of the chest, abdomen and pelvis was performed without intravenous contrast. Axial, coronal and sagittal reformatted images were generated. ---PQRS compliance statement - One or more of the following individualized dose reduction techniques were utilized for this study: 1. Automated exposure control 2. Adjustment of the mA and/or kV according to patient size 3. Use of iterative reconstruction technique--- FINDINGS: Lack of intravenous contrast limits evaluation of solid organs, vasculature, and lymph nodes. Chest: Heart is not enlarged. Coronary artery calcifications are seen. No pericardial effusion. Prominence of the ascending aorta measuring up to 4.4 cm, stable. No pleural effusion or pneumothorax. Bilateral gynecomastia is again seen. There is heterogeneous with underlying nodules, stable. Wedge-shaped opacities in the middle lobe with air bronchograms and volume loss likely atelectasis, grossly stable. 2 mm left lower lobe lung nodule is grossly stable. No definite new suspicious lung nodule is seen. No thoracic lymphadenopathy. Abdomen and Pelvis: No focal liver lesion. Calcified gallstone is seen within the gallbladder. No definite gallbladder wall thickening. No pericholecystic fluid. No biliary ductal dilatation. Pancreas is unremarkable. Spleen is mildly enlarged measuring 13.2 cm in length.. Adrenal glands are unremarkable. Left lower pole renal cystic lesion measures 17 Hounsfield units. No renal calculus. No hydronephrosis or hydroureter. The left kidney appears mildly atrophic. The left ureter extends to the left retroperitoneal soft tissue mass without proximal dilatation/hydronephrosis. Aneurysmal dilatation of the infrarenal aorta is grossly stable measuring up to 4.4 cm. Soft tissue rind-like infiltration about the aorta and iliacs is essentially unchanged. Vascular calcifications are seen. Moderate colonic stool content is seen. No small or large bowel dilatation. No evidence for bowel obstruction. Appendix is normal. Diverticulosis without evidence for acute diverticulitis. Prostate is enlarged measuring 6.4 cm in transverse dimension. No abdominal or pelvic lymphadenopathy by size criteria. No abdominal or pelvic ascites. Bones: Stable T6 compression fracture. Compression fracture of the L2 vertebral body is also stable with retropulsion into the canal. Sacral, right hemipelvic and left clavicular cortical thickening, trabeculated and sclerotic changes are stable as well. IMPRESSION: 1. Thoracic and abdominal aortic aneurysms are grossly stable 2. Rind-like soft tissue density about the aorta and iliacs is grossly stable although accurate measurements are precluded given diffuse nature. 3. Bilateral gynecomastia is again seen. 4. Cholelithiasis without CT evidence for acute cholecystitis. 5. Stable enlarged prostate. 6. Bony changes in the chest, abdomen and pelvis are unchanged including compression fractures. Electronically signed by: Papo Price MD (05/16/2019 11:05 AM) [facility]
== END | disposition home or self-care (01) ==
LOC: CT 08:35
PROVIDERS: ATTEND Internal Medicine Hematology & Oncology
DX: C83.33 Diffuse large B-cell lymphoma, intra-abdominal lymph nodes (principal); N62 Hypertrophy of breast; K80.20 Calculus of gallbladder without cholecystitis without obstruction; N40.0 Benign prostatic hyperplasia without lower urinary tract symptoms; I25.10 Atherosclerotic heart disease of native coronary artery without angina pectoris; R16.1 Splenomegaly, not elsewhere classified; Z91.040 Latex allergy status
CPT/HCPCS: 71250; 74176; Q9966